=== PATIENT | male | born 1940 | race Caucasian/White ===

== ENCOUNTER → 2016-10-06 | Outpatient (CLI) | payer OTHER ==
[~2016-10-06] MED LIST: ADVIN25/60 INH; ASPEC81 PO; ASPI81TA28 PO; ATOR-24 PO; ATOR10TA88 PO; CEPH-571 PO; CIPR-255 PO; CMD5 PO; FINA5TAB PO; FURO40TA3 PO; GLIM4TAB2 PO; INSU1.2I INJ; IPRA1AER2 INH; ISOS-10 PO; LIDO2GEL9 TOP; LPT40 PO; LVNIS150 SQ; MAGN1TAB19 PO; METO1TAB31 PO; NITR0.4S76 PO; NITR1CAP33 PO; NMN10 PO; NTRO1 EXT; NVLGI/PEN SC; OXYC7.5T65 PO; POTA1CAP2 PO; PRT40 PO; RANI300T2 PO; SERT50TA PO; TAMS0.4C38 PO; WARF5TAB90 PO; [UNRECOGNIZED DRUG - OTHER] SC
== END | disposition home or self-care (01) ==
LOC: C.PAPS 11:00
PROVIDERS: ATTEND Urology
DX: R33.9 Retention of urine, unspecified (principal)

== ENCOUNTER 2016-10-26 06:27 | Inpatient (IN) | payer OTHER ==
[~2016-10-26] VITALS: Ht 180.3 cm; Wt 127.4 kg
[2016-10-26] VITALS (7 sets, daily range): BP systolic 130–178; BP diastolic 64–94; PULSE 50–71; TEMP 36.3–36.6; O2SAT 95–98; BMI 38.6
[~2016-10-26 06:27] MED LIST changes: -ASPI81TA28 PO; -ATOR-24 PO; -ATOR10TA88 PO; -CEPH-571 PO; -CMD5 PO; -LVNIS150 SQ; -NITR0.4S76 PO; -NITR1CAP33 PO; -NTRO1 EXT; -NVLGI/PEN SC; -PRT40 PO; -WARF5TAB90 PO
[2016-10-26 07:32] LABS: BASO % 0.2 %; BASO ABS # 0.02 K/uL (0-0.2); COMPLETE YES; EOS % 3.7 %; IG% 0.2 %; LYMPH % 45.4 %; LYMPH ABS # 3.68 K/uL (1.2-3.4); MEAN CELL VOLUME 90.7 fL (80-100); MEAN CORPUSCULAR HEMOGLOBIN 31.2 pg (25-34); MEAN CORPUSCULAR HGB CONC 34.3 g/dl (32-36); MEAN PLATELET VOLUME 10.3 fL (7.4-10.4); MONO % 8.8 %; NEUT % 41.7 %; PLATELET COUNT 218 K/uL (130-400); RED BLOOD COUNT 5.07 M/uL (4.7-6.1); WHITE BLOOD COUNT 8.11 K/uL (4.8-10.8)
[2016-10-26 07:38] LABS: PARTIAL THROMBOPLASTIN RATIO 1.1; PROTHROMBIN TIME (PATIENT) 10.8 SECONDS (9.0-12.0)
--- NOTE | 2016-10-26 07:44 | DIAGNOSTIC IMAGING REPORT ---
CHEST ONE VIEW PORTABLE CLINICAL HISTORY: cp dyspnea COMPARISON STUDY: 08/02/2016 FINDINGS: Central catheter remains in superior vena cava. Slight interstitial prominence both lung bases. Mid and upper lungs are considered clear. Mild stable cardiomegaly. Prior median sternotomy. IMPRESSION: Mild nonspecific bibasilar interstitial prominence. Mild stable cardiomegaly. Electronically signed by: Richard Guardado M.D. 10/26/2016 7:42 AM Dictated Date/Time: 10/26/2016 7:42 AM
[2016-10-26 07:54] LABS: BUN/CREATININE RATIO 11.1 (10-20); CALCIUM 8.6 mg/dl (8.5-10.1); CREATININE 1.8 mg/dl (0.60-1.40); POTASSIUM 4.4 mmol/L (3.5-5.1)
[2016-10-26] MEDS ORDERED: NITR0.4S76 PO (07:54)
[2016-10-26] MEDS ORDERED: ATOR10TA88 PO (07:54)
[2016-10-26 08:05] LABS: BETA-HYDROXYBUTYRATE 0.95 mg/dL (0.2-2.81)
--- NOTE | 2016-10-26 08:25 | History and Physical ---
History & Physical Date & Time of Service: Oct 26, 2016 at 08:15 Chief Complaint: Chest Pain Primary Care Physician: RV. Pond MD History of Present Illness Source: patient, family This is a 76 yo M with PMHx of chronic CHF, chronic atrial fib not on anticoagulation d/t hx of hematuria, HTN, hyperlipidemia, DM II, GERD, constipation, depression, chewing tobacco and daily marijuana smoker, who presents with new onset chest pain that started at 0530 when he was putting small pieces of wood on a fire. Pt notes yesterday was not feeling well, felt tired and weak, although cannot specify any other symptoms. He did not take his normal evening medications yesterday. Today his pain in the chest started in the right side of chest, and radiated to his upper stomach and back, with bilateral arm numbness. He became short of breath at that point as well and required him to sit down. His brought him to the hospital. Pt denies feeling nauseous, heart palpitations, dizziness, lightheadedness, changes in vision. He has previously had chest pain last june, but reports this feels different. He ate this morning ~0500 and was able to smoke marijuana. Pt did not take his normal morning medications today. In the ED pt has normal trop, EKG showing atrial fibrillation, BP is elevated into the 170s-190s., Cr is elevated =1.8, BUN=20, no ketones, glucose is elevated at 360s-380s, CBC is WNL. Past Medical/Surgical History Medical Problems: (1) Alzheimers disease Status: Chronic (2) Anxiety Status: Chronic (3) Asthma Status: Chronic (4) Atrial fibrillation Status: Chronic (5) CAD (coronary artery disease) Status: Chronic (6) CHF (congestive heart failure) Status: Chronic (7) CHF (congestive heart failure) Status: Chronic (8) Cholelithiasis Status: Resolved (9) Colon cancer Status: Resolved (10) COPD (chronic obstructive pulmonary disease) Status: Chronic (11) Depression Status: Chronic (12) Diab Mckenna Wo Compl, Type Ii Or Unspec Type, Not Uncntrld Status: Chronic (13) DM (diabetes mellitus) Status: Chronic (14) DVT (deep venous thrombosis) Status: Resolved (15) Emphysema Status: Chronic (16) Hypertension Nos Status: Chronic (17) [place] (myocardial infarction) Status: Resolved (18) Mild sleep apnea Status: Chronic (19) Peripheral neuropathy Status: Chronic (20) Pure Hypercholesterolem Status: Chronic Surgical Problems: (1) H/O hemicolectomy Status: Resolved (2) History of coronary artery stent placement Status: Resolved (3) Hx of CABG Status: Resolved Family History Diabetes mellitus Heart disease Hypertension Social History Smoking Status: Never Smoker Smokeless Tobacco Use: Yes Alcohol Use: socially Drug Use: marijuana Marital Status: Housing status: lives with family Occupational Status: retired Immunizations History of Influenza Vaccine: Yes Influenza Vaccine Date: Jun 12, 2010 History of Tetanus Vaccine?: Yes History of Pneumococcal: Yes History of Hepatitis B Vaccine: Unknown Multi-Drug Resistant Organisms History of MDRO: No Allergies Coded Allergies: Codeine (Verified Adverse Reaction, Intermediate, EMESIS, 10/26/16) Iodinated Diagnostic Agents (Verified Adverse Reaction, Mild, NAUSEA, 10/26) Home Medications Scheduled Aspirin (Aspirin EC Low Dose), 81 MG PO QAM Atorvastatin (Lipitor), 40 MG PO HS Finasteride (Proscar), 5 MG PO QAM Fluticasone Prop/Salmeterol (Advair Diskus 250/50 60 Dose), 1 PUFF INH BID Furosemide (Lasix), 40 MG PO QAM Insulin Glargine (Toujeo Solostar), 20 UNIT INJ QPM Ipratropium-Albuterol (Combivent Respimat), 1 PUFFS INH BID Isosorbide Mononitrate (Isosorbide Mononitrate ER), 60 MG PO QAM Magnesium Oxide (Mg Supplement (Magnesium Oxide), 400 MG PO BID Memantine (Namenda), 10 MG PO BID Potassium Chloride (Potassium Chloride Er), 10 MEQ PO QAM Ranitidine Hcl (Zantac), 300 MG PO QPM Sertraline (Zoloft), 50 MG PO QPM Tamsulosin Hcl (Flomax), 0.8 MG PO QPM Miscellaneous Medications Nitroglycerin (Nitroglycerin Lingual) Review of Systems Constitutional: No chills, No fever, No sweats Eyes: No diplopia, No eye pain ENT: No nasal symptoms, No sore throat Respiratory: + cough (on and off x several weeks), + dyspnea on exertion, + shortness of breath, No dyspnea at rest Cardiovascular: + chest pain, No palpitations Abdomen: + constipation (hx), No diarrhea, No nausea, No pain, No vomiting Neurologic: + numbness/tingling (bilateral arms with chest pain, chronic diabetic neuropathy in feet), + weakness Psychiatric: + substance abuse (marijuana daily every morning.) Endocrine: + fatigue Integumentary: No itch, No rash Physical Exam Vital Signs Date Time Temp Pulse Resp B/P Pulse Ox O2 Delivery O2 Flow Rate FiO2 10/26/16 08:07 68 20 172/91 92 Room Air 10/26/16 06:39 71 10/26/16 06:29 94 Room Air 10/26/16 06:29 68 20 191/101 94 Room Air General Appearance: WD/WN, no apparent distress, + obese Head: normocephalic, atraumatic Eyes: PERRL, EOMI ENT: hearing grossly normal, pharynx normal, + pertinent finding (upper dentures, has chewing tobacco on facial hair) Neck: supple, no JVD Respiratory/Chest: chest non-tender, no respiratory distress, no accessory muscle use, + pertinent finding (wearing 2 L O2 via NC, diminished breath sounds at right base.) Cardiovascular: no JVD, + systolic murmur, + irregularly irregular Abdomen/GI: normal bowel sounds, non tender, soft, no organomegaly Back: normal inspection Extremities/Musculoskelatal: no pedal edema, + calf tenderness (Left calf) Neurologic/Psych: alert, normal mood/affect, oriented x 3 Skin: normal color, no rash Diagnostics Laboratory Results Results Past 24 Hours Test 10/26/16 05:53 10/26/16 06:35 10/26/16 07:29 Range/Units White Blood Count 8.11 4.8-10.8 K/uL Red Blood Count 5.07 4.7-6.1 M/uL Hemoglobin 15.8 14.0-18.0 g/dL Hematocrit 46.0 42-52 % Mean Corpuscular Volume 90.7 80-100 fL Mean Corpuscular Hemoglobin 31.2 25-34 pg Mean Corpuscular Hemoglobin Concent 34.3 32-36 g/dl Platelet Count 218 130-400 K/uL Mean Platelet Volume 10.3 7.4-10.4 fL Neutrophils (%) (Auto) 41.7 % Lymphocytes (%) (Auto) 45.4 % Monocytes (%) (Auto) 8.8 % Eosinophils (%) (Auto) 3.7 % Basophils (%) (Auto) 0.2 % Neutrophils # (Auto) 3.38 1.4-6.5 K/uL Lymphocytes # (Auto) 3.68 1.2-3.4 K/uL Monocytes # (Auto) 0.71 0.11-0.59 K/uL Eosinophils # (Auto) 0.30 0-0.5 K/uL Basophils # (Auto) 0.02 0-0.2 K/uL RDW Standard Deviation 46.9 36.4-46.3 fL RDW Coefficient of Variation 14.2 11.5-14.5 % Immature Granulocyte % (Auto) 0.2 % Immature Granulocyte # (Auto) 0.02 0.00-0.02 K/uL Prothrombin Time 10.8 9.0-12.0 SECONDS Prothromb Time International Ratio 1.0 0.9-1.1 Activated Partial Thromboplast Time 27.3 21.0-31.0 SECONDS Partial Thromboplastin Ratio 1.1 Sodium Level 135 136-145 mmol/L Potassium Level 4.4 3.5-5.1 mmol/L Chloride Level 98 98-107 mmol/L Carbon Dioxide Level 29 21-32 mmol/L Anion Gap 8.0 3-11 mmol/L Blood Urea Nitrogen 20 7-18 mg/dl Creatinine 1.80 0.60-1.40 mg/dl Est Creatinine Clear Calc Drug Dose 46.4 ml/min Estimated GFR () 41.2 Estimated GFR (Non- 35.5 BUN/Creatinine Ratio 11.1 10-20 Random Glucose 388 70-99 mg/dl Calcium Level 8.6 8.5-10.1 mg/dl Beta-Hydroxybutyric Acid 0.95 0.2-2.81 mg/dL Bedside Glucose 362 70-99 mg/dl Bedside Troponin I 0.010 0-0.045 ng/ml Diagnostic Radiology CHEST ONE VIEW PORTABLE CLINICAL HISTORY: cp dyspnea COMPARISON STUDY: 08/02/2016 FINDINGS: Central catheter remains in superior vena cava. Slight interstitial prominence both lung bases. Mid and upper lungs are considered clear. Mild stable cardiomegaly. Prior median sternotomy. IMPRESSION: Mild nonspecific bibasilar interstitial prominence. Mild stable cardiomegaly. EKG Vent. rate 72 BPM FL interval * ms QRS duration 102 ms QT/QTc 416/455 ms P-R-T axes * 28 63 Atrial fibrillation, old inferior infarct. No new acute ST inversions or signs of ischemia. Impression Assessment and Plan 76 yo M with PMHx of chronic CHF, HTN, chronic atrial fibrillation not on anticoagulation due to hematuria, hyperlipidemia, DM II, GERD, constipation, depression, chewing tobacco and daily marijuana smoker, who presents with new onset chest pain that started at 0530 when he was putting small pieces of wood on a fire. Chest Pain, shortness of breath Hx CHF Chronic Atrial Fibrillation - Admit to tele - 1st trop negative, Trend troponin and ckmb Q8H x 3 - EKG reviewed showing atrial fibrillation, dx back in Jul 2014. Was initially on coumadin although developed hematuria in Sep 2015 so was discontinued. - Will check doppler of left leg to r/o dvt with + calf tenderness - Will check CTPE study stat even with elevated Cr. due to high suspicion for PE. - Last Echo completed 07/04/16: Left ventricular systolic function is normal. There is inferior wall akinesis. Ejection Fraction = 50-55%. There is mild concentric left ventricular hypertrophy. Mild to moderate valvular aortic stenosis. There is mild mitral stenosis. HTN - SBPs in 190s-170s, DBP around 100- pt has not taken any of antihypertensives today or yesterday- give PT imdur 60 mg now. 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 elevated this morning at 1.8, baseline appears to be ~1.4 - hold nephrotoxins including lasix 40 mg daily - pt has not taken this x 24 hours. 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 Will use ISS with accuchecks ACHS for now - Diabetic/ aha diet GERD - Cont ranitidine Depression - Cont sertraline 50 mg daily Tobacco Abuse - Cessation encouraged, offerend nicotine patch. Continue combivent inhaler 1 puff daily - Requiring o2 at 2 L, - Will order duonebs for today with diminished breath sounds at bases - CXR reviewed and shows mild nonspecific bibasilar interstitial prominence. Mild stable cardiomegaly. Hx colon carcinoma BPH-continue flomax 0.8 mg daily QPM DVT ppx: SCDs, heparin sq CODE STATUS: FULL CODE Disposition: From home. Level of Care Telemetry Advanced Directives Existing Advance Directive: No Existing Living Will: No Existing Power of National Account Executive: No Existing Health Care Proxy: No Resuscitation Status FULL RESUSCITATION VTE Prophylaxis VTE Risk Assessment Done? Y/N: Yes Risk Level: Moderate Given or contraindicated: Unfractionated heparin SQ, SCD's
[2016-10-26] MEDS: SODIUM CHLORIDE 0.9% 1000ML 1,000 ML IV SCH (08:49)
[2016-10-26] MEDS ORDERED: ACETAMINOPHEN 325 MG TAB PO PRN (09:00)
[2016-10-26] MEDS ORDERED: NITROGLYCERIN 0.4 MG SL PER TAB CHARGE SL PRN (09:00)
[2016-10-26] MEDS ORDERED: GLUCAGON FOR INJ 1 MG VIAL SQ PRN (09:00)
[2016-10-26] MEDS ORDERED: GLUCOSE 10 TABS/TUBE PO PRN (09:00)
[2016-10-26] MEDS ORDERED: ONDANSETRON INJ 2 MG/ML 2 ML VIAL IV PRN (09:00)
[2016-10-26] MEDS ORDERED: IPRATROPIUM BROMIDE/ALBUTEROL respimat INH INH SCH (09:00)
[2016-10-26] MEDS ORDERED: POLYETHYLENE (MIRALAX) 17 GM PACK PO PRN (09:00)
[2016-10-26] MEDS ORDERED: DEXTROSE 50% 50 ML SYR IV PRN (09:00)
[2016-10-26] MEDS ORDERED: GLUCOSE 40% GEL 15 GM TUBE PO PRN (09:00)
[2016-10-26] MEDS ORDERED: ATOR-24 PO (09:05)
[2016-10-26] MEDS ORDERED: OPTIRAY 320 IV PRN (09:30)
--- NOTE | 2016-10-26 10:09 | EMERGENCY ROOM VISIT NOTE ---
History Report prepared by Franklin: Dean Whiteside Under the Supervision of: Dr. Dionicio Burk M.D. First contact with patient: 06:58 Chief Complaint: CHEST PAIN Stated Complaint: CHEST PAIN Nursing Triage Summary: Pt throwing wood on his fire around 5am and developed chest pain on his right side. Pt states he thought it was from a twisting moment. Didn't radiate anywhere, some shortness of breath. Pt stated he has been feeling weak for awhile now. History of Present Illness The patient is a 76 year old male who presents to the Emergency Room with complaints of chest discomfort. It started at approximate 5 AM this morning while he was putting wood on the fireplace. He describes it as a pressure to the right side of the chest. It was associated with shortness of breath and numbness to his hands bilaterally. No radiation of the chest pain. It resolved after 15 minutes. He was brought here by ambulance and given aspirin by the paramedics. He is not having any chest discomfort at this time. He did not take his medications this morning. He does have a history of atrial fibrillation but he is not on any blood thinners. He has not been on Coumadin for approximately one year because of a history of hematuria. He denies any fever but states that he has had a mild cough for the past 2 days. Source of History: patient Onset: 5 AM this morning Position: chest (right) Quality: other (pressure) Timing: resolved Associated Symptoms: + SOB, + cough, No fevers Review of Systems I did review 10 or more systems which are negative unless otherwise indicated on the chart or HPI. Past Medical & Surgical Medical Problems: (1) Alzheimers disease (2) Anxiety (3) Asthma (4) Atrial fibrillation (5) CAD (coronary artery disease) (6) Chest pain (7) CHF (congestive heart failure) (8) CHF (congestive heart failure) (9) Cholelithiasis (10) Colon cancer (11) COPD (chronic obstructive pulmonary disease) (12) Depression (13) Diab Mckenna Wo Compl, Type Ii Or Unspec Type, Not Uncntrld (14) DM (diabetes mellitus) (15) DVT (deep venous thrombosis) (16) Emphysema (17) Gross hematuria (18) Hypertension Nos (19) [place] (myocardial infarction) (20) Mild sleep apnea (21) Peripheral neuropathy (22) Pure Hypercholesterolem (23) Shortness of breath Surgical Problems: (1) H/O hemicolectomy (2) History of coronary artery stent placement (3) Hx of CABG Family History Diabetes mellitus Heart disease Hypertension Social History Smoking Status: Never Smoker Alcohol Use: occasionally Drug Use: none Marital Status: Housing Status: lives with significant other Occupation Status: retired Current/Historical Medications Scheduled Aspirin (Aspirin EC Low Dose), 81 MG PO QAM Atorvastatin (Lipitor), 40 MG PO HS Finasteride (Proscar), 5 MG PO QAM Fluticasone Prop/Salmeterol (Advair Diskus 250/50 60 Dose), 1 PUFF INH BID Furosemide (Lasix), 40 MG PO QAM Insulin Glargine (Toujeo Solostar), 20 UNIT INJ QPM Ipratropium-Albuterol (Combivent Respimat), 1 PUFFS INH BID Isosorbide Mononitrate (Isosorbide Mononitrate ER), 60 MG PO QAM Magnesium Oxide (Mg Supplement (Magnesium Oxide), 400 MG PO BID Memantine (Namenda), 10 MG PO BID Potassium Chloride (Potassium Chloride Er), 10 MEQ PO QAM Ranitidine Hcl (Zantac), 300 MG PO QPM Sertraline (Zoloft), 50 MG PO QPM Tamsulosin Hcl (Flomax), 0.8 MG PO QPM Miscellaneous Medications Nitroglycerin (Nitroglycerin Lingual) Allergies Coded Allergies: Codeine (Verified Adverse Reaction, Intermediate, EMESIS, 10/26/16) Iodinated Diagnostic Agents (Verified Adverse Reaction, Mild, NAUSEA, 10/26) Physical Exam Vital Signs Date Time Temp Pulse Resp B/P Pulse Ox O2 Delivery O2 Flow Rate FiO2 10/26/16 09:55 68 20 166/94 96 10/26/16 08:07 68 20 172/91 92 Room Air 10/26/16 06:39 71 10/26/16 06:29 94 Room Air 10/26/16 06:29 68 20 191/101 94 Room Air Physical Exam Constitutional: Vital signs reviewed. Repeat blood pressure 157/90. Eyes: Pupils are equal round reactive to light. Conjunctiva are noninjected. ENT: Pharynx is clear without erythema or exudate. Mucous membranes are moist. Neck supple without meningeal signs. Respiratory: Clear to auscultation bilaterally. Breath sounds are equal bilaterally. Cardiovascular: Regular rate and rhythm. No rubs or gallops. GI: Soft, nondistended and nontender. Bowel sounds are present. Musculoskeletal: No peripheral edema. No lower extremity tenderness. Integumentary: No cyanosis. Neurological: The patient is awake and alert. No focal deficits. Psychiatric: Normal affect. Medical Decision & Procedures ER Provider Diagnostic Interpretation: X-ray results as stated below per interpretation by me and the radiologist: CHEST ONE VIEW PORTABLE CLINICAL HISTORY: cp dyspnea COMPARISON STUDY: 08/02/2016 FINDINGS: Central catheter remains in superior vena cava. Slight interstitial prominence both lung bases. Mid and upper lungs are considered clear. Mild stable cardiomegaly. Prior median sternotomy. IMPRESSION: Mild nonspecific bibasilar interstitial prominence. Mild stable cardiomegaly. Electronically signed by: Richard Guardado M.D. 10/26/2016 7:42 AM Dictated Date/Time: 10/26/2016 7:42 AM Laboratory Results 10/26/16 05:53 Red Blood Count 5.07, Mean Corpuscular Volume 90.7, Mean Corpuscular Hemoglobin 31.2, Mean Corpuscular Hemoglobin Concent 34.3, Mean Platelet Volume 10.3, Neutrophils (%) (Auto) 41.7, Lymphocytes (%) (Auto) 45.4, Monocytes (%) (Auto) 8.8, Eosinophils (%) (Auto) 3.7, Basophils (%) (Auto) 0.2, Neutrophils # (Auto) 3.38, Lymphocytes # (Auto) 3.68, Monocytes # (Auto) 0.71, Eosinophils # (Auto) 0.30, Basophils # (Auto) 0.02 10/26/16 05:53 Test 10/26/16 05:53 10/26/16 06:35 10/26/16 07:29 White Blood Count 8.11 K/uL (4.8-10.8) Red Blood Count 5.07 M/uL (4.7-6.1) Hemoglobin 15.8 g/dL (14.0-18.0) Hematocrit 46.0 % (42-52) Mean Corpuscular Volume 90.7 fL (80-100) Mean Corpuscular Hemoglobin 31.2 pg (25-34) Mean Corpuscular Hemoglobin Concent 34.3 g/dl (32-36) Platelet Count 218 K/uL (130-400) Mean Platelet Volume 10.3 fL (7.4-10.4) Neutrophils (%) (Auto) 41.7 % Lymphocytes (%) (Auto) 45.4 % Monocytes (%) (Auto) 8.8 % Eosinophils (%) (Auto) 3.7 % Basophils (%) (Auto) 0.2 % Neutrophils # (Auto) 3.38 K/uL (1.4-6.5) Lymphocytes # (Auto) 3.68 K/uL (1.2-3.4) Monocytes # (Auto) 0.71 K/uL (0.11-0.59) Eosinophils # (Auto) 0.30 K/uL (0-0.5) Basophils # (Auto) 0.02 K/uL (0-0.2) RDW Standard Deviation 46.9 fL (36.4-46.3) RDW Coefficient of Variation 14.2 % (11.5-14.5) Immature Granulocyte % (Auto) 0.2 % Immature Granulocyte # (Auto) 0.02 K/uL (0.00-0.02) Prothrombin Time 10.8 SECONDS (9.0-12.0) Prothromb Time International Ratio 1.0 (0.9-1.1) Activated Partial Thromboplast Time 27.3 SECONDS (21.0-31.0) Partial Thromboplastin Ratio 1.1 Anion Gap 8.0 mmol/L (3-11) Est Creatinine Clear Calc Drug Dose 46.4 ml/min Estimated GFR () 41.2 Estimated GFR (Non- 35.5 BUN/Creatinine Ratio 11.1 (10-20) Calcium Level 8.6 mg/dl (8.5-10.1) Beta-Hydroxybutyric Acid 0.95 mg/dL (0.2-2.81) Bedside Glucose 362 mg/dl (70-99) Bedside Troponin I 0.010 ng/ml (0-0.045) Laboratory results as reviewed by me. ECG Indication: chest pain Rate (beats per minute): 72 Rhythm: atrial fibrillation Findings: Q waves (Inferior), no acute ischemic change Change: no significant change (June 2016) ED Course 0658: The patient was evaluated in room A12. A complete history and physical exam was performed. 0804: I paged the TnMiquel Owens Hospitalist at this time. 0807: I checked on the patient at this time. His mentioned that he did not take his diabetes medication this morning. 0808: I discussed the case with Dr. Aury WINKLER Hospitalist, he will evaluate the patient for further treatment. Medical Decision This is a 76-year-old male who presents with chest discomfort. Differential diagnosis includes unstable angina, IL, pleurisy, GERD, pneumonia, pneumothorax. I did perform a limited focused review of portions of the patient' s old chart on the electronic medical record. The patient had a cardiac stress test in June last year which was negative for any new ischemia. I did evaluate the patient as noted above. The patient is presenting with chest discomfort after putting a log in the fire. He does have a history of cardiac disease. He is chest pain-free currently. IV access was established. The patient was placed on a continuous conveyor monitor. I did order and personally review the patient's 12-lead EKG and chest x-ray as described above. I did order and review the patient's blood work as noted in the electronic medical record. Troponin is negative. His blood sugar is elevated but he states he did not take his medication this morning. I did recommend hospitalization for repeat cardiac enzymes and further workup. I did discuss case with the hospitalist and rn case manager hospice. Consults Time Called: [phone] Consulting Physician: Dr. Aury WINKLER Hospitalist Returned Call: [phone] I discussed the case with Dr. Aury WINKLER Hospitalhay, he will evaluate the patient for further treatment Impression Primary Impression: Precordial chest pain Additional Impression: Hyperglycemia Scribe Attestation The scribe's documentation has been prepared under my direct and personally reviewed by me in its entirety. I confirm that the note above accurately reflects all work, treatment, procedures, and medical decision making performed by me. Departure Information Dispostion Being Evaluated By Hospitalist RV. Turpin MD (PCP) Patient Instructions My [facility] Problem Qualifiers
--- NOTE | 2016-10-26 10:17 | DIAGNOSTIC IMAGING REPORT ---
CHEST CTA for PULMONARY ARTERIES CT DOSE: 806.27 mGy.cm HISTORY: Chest pain dyspnea TECHNIQUE: Multiaxial CT images of the chest were performed following the intravenous administration of contrast to evaluate the pulmonary arteries. Maximal intensity projection images were also obtained. COMPARISON STUDY: None. FINDINGS: Moderate atherosclerotic change thoracic aorta. Pulmonary vasculature enhances appropriately. There are no filling defects. Slight bibasilar interstitial prominence. Mild pleural thickening over the lateral hemithoraces. Moderate cardiomegaly. Prior median sternotomy. Central catheter in superior vena cava. IMPRESSION: 1. Study is negative for pulmonary embolus. 2. Slight bibasilar interstitial prominence. 3. Moderate cardiomegaly. Electronically signed by: Richard Guardado M.D. 10/26/2016 10:16 AM Dictated Date/Time: 10/26/2016 10:12 AM
[2016-10-26] MEDS ORDERED: ALBUT/IPRATROP 3MG/0.5MG NEB 3 ML VIAL INH PRN (10:30)
--- NOTE | 2016-10-26 13:20 | DIAGNOSTIC IMAGING REPORT ---
Venous Doppler left leg LEFT VENOUS DOPP LOWER EXT UNILAT CLINICAL HISTORY: R/o DVT pain. Edema. TECHNIQUE: Venous Doppler COMPARISON STUDY: 05/01/2014 FINDINGS: Nonocclusive thrombus within the left peroneal veins. No significant additional thrombus formation. Specifically no thrombus formation within the thigh. IMPRESSION: Findings consistent with acute deep venous thrombosis inferior to the knee involving the left peroneal veins. Electronically signed by: Richard Guardado M.D. 10/26/2016 1:19 PM Dictated Date/Time: 10/26/2016 1:17 PM
[2016-10-26] MEDS: FLUTICASONE/SALMETEROL 250/50 (ADVAIR) 14 PUFF/1 INHALER INH SCH ×2 (13:59→21:25)
[2016-10-26] MEDS: ASPIRIN 81 MG ECTAB PO SCH (14:00)
[2016-10-26] MEDS ORDERED: HEPARIN SOD 5000 UNIT/0.5 ML CARP SQ SCH (14:00)
[2016-10-26] MEDS: POTASSIUM CHLORIDE 10 MEQ TABCR PO SCH (14:01)
[2016-10-26] MEDS: MAGNESIUM OXIDE 400 MG TAB PO SCH ×2 (14:01→21:28)
[2016-10-26] MEDS: MEMANTINE 10 MG TAB PO SCH ×2 (14:02→21:27)
[2016-10-26] MEDS: FINASTERIDE 5 MG TAB PO SCH (14:02)
[2016-10-26] MEDS: ISOSORBIDE MONONITRATE 60 MG TABCR PO SCH (14:03)
[2016-10-26] MEDS: INSULIN ASPART 100 UNITS/ML 3 ML PEN SC SCH ×3 (14:48→21:00)
[2016-10-26] MEDS: ALBUT/IPRATROP 3MG/0.5MG NEB 3 ML VIAL INH SCH ×2 (15:36→20:00)
[2016-10-26] MEDS ORDERED: NURSING VERBAL MED ORDER ONE (15:45)
[2016-10-26] MEDS ORDERED: HEPARIN IV BOLUS 8,000 UNIT in SYRINGE 0 ML IV ONE (16:00)
[2016-10-26 16:24] LABS: PHOSPHORUS 3.3 mg/dl (2.5-4.9); POTASSIUM 4.3 mmol/L (3.5-5.1)
[2016-10-26] MEDS: HEPARIN 25,000 UNIT/500ML D5W 500 ML IV PRN (16:24)
[2016-10-26] MEDS ORDERED: WARFARIN SOD 5 MG TAB PO ONE (17:30)
[2016-10-26] MEDS: WARFARIN SOD 5 MG TAB PO SCH (18:28)
[2016-10-26] MEDS ORDERED: INSULIN GLARGINE SOLOSTAR 100 UNITS/ML 3 ML PEN SC SCH (21:00)
[2016-10-26] MEDS: ATORVASTATIN 10 MG TAB PO SCH (21:26)
[2016-10-26] MEDS: TAMSULOSIN HCL 0.4 MG CAP PO SCH (21:26)
[2016-10-26] MEDS: SERTRALINE HCL 50 MG TAB PO SCH (21:27)
[2016-10-26] MEDS: RANITIDINE HCL 150 MG TAB PO SCH (21:27)
[2016-10-26 23:11] LABS: PARTIAL THROMBOPLASTIN RATIO 4.5
[2016-10-27] VITALS (11 sets, daily range): BP systolic 120–147; BP diastolic 59–82; PULSE 60–87; TEMP 36.3–36.9; O2SAT 93–98; Ht 180.3 cm; Wt 127.4 kg
[2016-10-27] MEDS: SODIUM CHLORIDE 0.9% 1000ML 1,000 ML IV SCH (06:39)
[2016-10-27 07:27] LABS: BASO % 0.4 %; BASO ABS # 0.03 K/uL (0-0.2); COMPLETE YES; EOS % 2.9 %; HEMATOCRIT 36.6 % (42-52); IG% 0.2 %; LYMPH % 39.5 %; LYMPH ABS # 3.35 K/uL (1.2-3.4); MEAN CELL VOLUME 87.6 fL (80-100); MEAN CORPUSCULAR HEMOGLOBIN 29.9 pg (25-34); MEAN CORPUSCULAR HGB CONC 34.2 g/dl (32-36); MEAN PLATELET VOLUME 9.4 fL (7.4-10.4); MONO % 7.8 %; NEUT % 49.2 %; PLATELET COUNT 197 K/uL (130-400); RED BLOOD COUNT 4.18 M/uL (4.7-6.1); WHITE BLOOD COUNT 8.48 K/uL (4.8-10.8)
[2016-10-27] MEDS: ALBUT/IPRATROP 3MG/0.5MG NEB 3 ML VIAL INH SCH ×4 (07:37→20:43)
[2016-10-27 07:39] LABS: INR 1.1 (0.9-1.1); PARTIAL THROMBOPLASTIN RATIO 2.4; PROTHROMBIN TIME (PATIENT) 11.4 SECONDS (9.0-12.0)
[2016-10-27 07:54] LABS: BLOOD UREA NITROGEN 18 mg/dl (7-18); BUN/CREATININE RATIO 11.9 (10-20); CALCIUM 8.1 mg/dl (8.5-10.1); CARBON DIOXIDE 28 mmol/L (21-32); CHLORIDE 105 mmol/L (98-107); GLUCOSE 146 mg/dl (70-99); POTASSIUM 4.5 mmol/L (3.5-5.1); SODIUM 141 mmol/L (136-145)
[2016-10-27] MEDS: FLUTICASONE/SALMETEROL 250/50 (ADVAIR) 14 PUFF/1 INHALER INH SCH ×2 (08:09→20:03)
[2016-10-27] MEDS: ISOSORBIDE MONONITRATE 60 MG TABCR PO SCH (08:09)
[2016-10-27] MEDS: ASPIRIN 81 MG ECTAB PO SCH (08:09)
[2016-10-27] MEDS: MEMANTINE 10 MG TAB PO SCH ×2 (08:10→20:05)
[2016-10-27] MEDS: FINASTERIDE 5 MG TAB PO SCH (08:10)
[2016-10-27] MEDS: MAGNESIUM OXIDE 400 MG TAB PO SCH ×2 (08:10→20:06)
[2016-10-27] MEDS: POTASSIUM CHLORIDE 10 MEQ TABCR PO SCH (08:11)
[2016-10-27] MEDS: INSULIN ASPART 100 UNITS/ML 3 ML PEN SC SCH ×4 (08:15→20:11)
[2016-10-27] MEDS: HEPARIN 25,000 UNIT/500ML D5W 500 ML IV PRN (08:34)
[2016-10-27 09:05] LABS: ESTIMATED AVERAGE GLUCOSE 286 mg/dl; HA1C FLAG Normal (Normal)
[2016-10-27] MEDS ORDERED: NURSING VERBAL MED ORDER ONE (09:30)
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
[2016-10-27] MEDS: WARFARIN SOD 5 MG TAB PO SCH (16:05)
[2016-10-27] MEDS: RANITIDINE HCL 150 MG TAB PO SCH (20:05)
[2016-10-27] MEDS: ATORVASTATIN 10 MG TAB PO SCH (20:05)
[2016-10-27] MEDS: SERTRALINE HCL 50 MG TAB PO SCH (20:05)
[2016-10-27] MEDS: TAMSULOSIN HCL 0.4 MG CAP PO SCH (20:06)
[2016-10-27] MEDS: INSULIN GLARGINE SOLOSTAR 100 UNITS/ML 3 ML PEN SQ SCH (20:11)
[2016-10-28] VITALS (9 sets, daily range): BP systolic 120–159; BP diastolic 59–87; PULSE 62–89; TEMP 36.3–36.6; O2SAT 95–97
[2016-10-28] MEDS: HEPARIN 25,000 UNIT/500ML D5W 500 ML IV PRN ×2 (01:06→22:35)
--- NOTE | 2016-10-28 01:58 | CARDIOLOGY CONSULTATION ---
DATE OF CONSULTATION: 10/27/2016 CONSULTATION REQUESTED BY: Dr. Jeffers. REASON FOR CONSULTATION: Atrial fibrillation and anticoagulation management. HISTORY OF PRESENT ILLNESS: Mr. Townsend is a 76-year-old male, with a complex past medical history, known to me from the outpatient setting, who was admitted 2 days ago in the setting of a vague chest discomfort and numbness down his arms. He was noted to have a small peroneal DVT for which he is now being anticoagulated. Cardiology consult for further management recommendations regarding anticoagulation in the setting of patient's other cardiac issues. The patient has a history of coronary artery disease, status post 2-vessel CABG remotely with prior vein graft to PDA and vein graft to first diagonal. He also had an inferior STEMI back in 2010 involving his vein graft to PDA for which a bare-metal stent was placed. Since that time, his cardiac care has been complicated by acute exacerbations of heart failure as well as atrial fibrillation and a prior GI bleed in the setting of anticoagulation. More recently, the patient was seen as an outpatient by cardiology 3 months ago. At that time, had recently been discharged from a hospitalization for heart failure and he was doing relatively well. At that time, we discussed anticoagulation, but deferred in the setting of potential upcoming urologic procedures. Currently, the patient states he is feeling well. The chest pain that he had initially quickly resolved and he states that he has had pain like that, off and on, for a long time. This was not terribly new. His troponins have been negative. His EKG has been unchanged. He has been in persistent atrial fibrillation on telemetry since admission with episodes of nonsustained VT, possible wide complex arrhythmia representing SVT with aberrancy. Since hospitalization, he has been started on heparin as well as Coumadin. PAST MEDICAL HISTORY: 1. Coronary artery disease, status post 2 vessel CABG (vein graft to PDA, vein graft to first diagonal), known occluded LAD and a prior bare-metal stent to his vein graft to PDA in the setting of inferior STEMI. 2. Ischemic cardiomyopathy. An echo in June of 2006 showed preserved LV function with an EF of 50%-55%. A nuclear cardiology study at that time showed EF of around 34%. 3. Permanent atrial fibrillation. 4. Moderate aortic stenosis. 5. Hypertension. 6. Dyslipidemia. 7. Mild dementia. 8. Anemia. 9. Asthma. 10. History of hematuria. 11. COPD. 12. Depression and anxiety. 13. Type 2 diabetes, not on insulin. 14. Dyslipidemia. 15. BPH. 16. Hyperlipidemia. FAMILY HISTORY: No history of premature coronary artery disease or sudden cardiac . SOCIAL HISTORY: Does not actively smoke tobacco. Remote tobacco use in the past. Ongoing marijuana use almost daily and rarely consumes alcohol. He is , has 2 grown adult children. HOME MEDICATIONS: 1. Ranitidine 300. 2. Sertraline 50. 3. Toujeo injection. 4. Furosemide 40 mg. 5. Aspirin 81. 6. Isosorbide mononitrate 60. 7. Advair. 8. Glimepiride. 9. Atorvastatin 40. 10. Finasteride. 11. Combivent. ALLERGIES: CODEINE AND IODINATED CONTRAST MATERIAL. REVIEW OF SYSTEMS: Ten-point review of systems completed and otherwise negative, unless stated in the HPI. PHYSICAL EXAMINATION: VITAL SIGNS: Temperature 36.9, pulse 69, blood pressure 123/70, saturating 95% on room air. GENERAL: The patient appears comfortable, in no acute distress. HEENT: Sclerae are anicteric. Oropharynx is clear. Mucous membranes are moist. NECK: Supple. He has no jugular venous distention. LUNGS: Clear to auscultation bilaterally. HEART: He is irregularly irregular. He has 2/6 systolic ejection murmur, heard best at the right upper sternal border. ABDOMEN: Soft, nontender, nondistended with positive bowel sounds. He has no hepatosplenomegaly. EXTREMITIES: Warm. He has intact distal pulses. He has no significant lower extremity edema. SKIN: Shows no rashes or lesions. NEUROLOGIC: Cranial nerves are grossly intact. The remainder of his exam is nonfocal. PSYCHIATRIC: He is alert and oriented x3 and mood and affect is appropriate. LABORATORY DATA: White blood cell count 8.5, hemoglobin 12.5, down from 15.8 on admission, platelets of 197. INR is 1.1, PTT is 62.5. Sodium 141, potassium 4.5, BUN 18, creatinine of 1.5, down from 1.9 on admission, calcium is 8.1, hemoglobin A1c is elevated at 11.6. Troponins 0.01, 0.034, 0.023, 0.019. ProBNP 2000. IMAGING: Chest x-ray shows a mild nonspecific bibasilar interstitial prominence and stable cardiomegaly. Otherwise, no acute cardiopulmonary process. Lower extremity ultrasound showed acute deep venous thrombosis inferior to the knee, involving the left peroneal veins. CT scan of his chest was negative for PE. There was a slight bibasilar interstitial prominence. EKG showed atrial fibrillation with inferior infarct and no dynamic ST changes. Telemetry reviewed showed largely well rate-controlled atrial fibrillation. There were several intermittent episodes of PVCs and 2 episodes of nonsustained VT, most recent overnight was 9 beats. Episode prior to that occurred earlier in the morning and was more than 12 beats, slow, wide, at a rate of approximately 120. IMPRESSION AND PLAN: 1. Atypical chest pain. 2. Persistent atrial fibrillation. 3. Acute deep venous thrombosis. 4. History of hematuria, on blood thinners. 5. Nonsustained ventricular tachycardia. 6. Ischemic cardiomyopathy with chronic systolic heart failure. 7. Coronary artery disease, status post CABG and prior inferior ST segment elevation myocardial infarction with bare-metal stent. 8. Anemia. 9. Poorly-controlled type 2 diabetes. At present, the patient's chest pain and presenting symptoms have largely resolved. New finding on this admission was [id number] venous thrombosis. In the setting of that and the patient's persistent atrial fibrillation, he has been placed on heparin with Coumadin. Long-term, agree with resuming anticoagulation, as the patient is high risk for cardioemboli in the setting of his atrial fibrillation and risk factors Choice of anticoagulation is complicated by the patient's prior hematuria in the setting of triple therapy, including aspirin, Plavix and Coumadin. With any anticoagulation will need to be on aspirin as well. Discussed with the patient and his family potential use of a novel oral anticoagulant. The only one that has a reversal agent is Pradaxa; however, requires parenteral heparin use in the acute treatment of DVT. As such, I feel with the patient's drop in hemoglobin from admission agree with current anticoagulation and would plan to continue Coumadin. For now, would continue on heparin and continue to track blood counts. If hemoglobins are stable, could consider a bridge with Lovenox to Coumadin. Otherwise, would continue on current cardiac regimen. Would add Toprol 25 mg daily in the setting of nonsustained VT. Would also repeat a transthoracic echocardiogram in the setting of conflicting LV function on most recent studies. We will continue to follow the patient while in the hospital. When anticoagulation plan is in place, likely okay for discharge from a cardiac standpoint. Thank you for allowing us to participate in the care of this patient. Please contact with any questions. MAYCOL
[2016-10-28 07:25] LABS: BASO % 0.7 %; BASO ABS # 0.05 K/uL (0-0.2); COMPLETE YES; EOS % 2.5 %; HEMATOCRIT 34.7 % (42-52); IG% 0.3 %; LYMPH % 39.5 %; LYMPH ABS # 2.86 K/uL (1.2-3.4); MEAN CORPUSCULAR HEMOGLOBIN 29.6 pg (25-34); MEAN PLATELET VOLUME 9.5 fL (7.4-10.4); MONO % 7.2 %; NEUT % 49.8 %; PLATELET COUNT 179 K/uL (130-400); RED BLOOD COUNT 3.99 M/uL (4.7-6.1); WHITE BLOOD COUNT 7.24 K/uL (4.8-10.8)
[2016-10-28] MEDS: ALBUT/IPRATROP 3MG/0.5MG NEB 3 ML VIAL INH SCH ×4 (07:25→20:20)
[2016-10-28 07:47] LABS: INR 1.1 (0.9-1.1); PARTIAL THROMBOPLASTIN RATIO 1.9; PROTHROMBIN TIME (PATIENT) 11.4 SECONDS (9.0-12.0)
[2016-10-28 07:51] LABS: BUN/CREATININE RATIO 10.6 (10-20); CALCIUM 8.4 mg/dl (8.5-10.1); CREATININE 1.4 mg/dl (0.60-1.40); POTASSIUM 4.1 mmol/L (3.5-5.1)
[2016-10-28] MEDS: FLUTICASONE/SALMETEROL 250/50 (ADVAIR) 14 PUFF/1 INHALER INH SCH ×2 (08:22→20:24)
[2016-10-28] MEDS: FINASTERIDE 5 MG TAB PO SCH (08:22)
[2016-10-28] MEDS: MAGNESIUM OXIDE 400 MG TAB PO SCH ×2 (08:22→20:24)
[2016-10-28] MEDS: MEMANTINE 10 MG TAB PO SCH ×2 (08:23→20:22)
[2016-10-28] MEDS: ASPIRIN 81 MG ECTAB PO SCH (08:23)
[2016-10-28] MEDS: ISOSORBIDE MONONITRATE 60 MG TABCR PO SCH (08:23)
[2016-10-28] MEDS: INSULIN ASPART 100 UNITS/ML 3 ML PEN SC SCH ×4 (08:27→20:29)
[2016-10-28] MEDS ORDERED: PERFLUTREN LIPID MICROSPHERE (DEFINITY) IV ONE (10:51)
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
[2016-10-28] MEDS: WARFARIN SOD 5 MG TAB PO SCH (16:46)
[2016-10-28] MEDS ORDERED: PANTOprazole SOD 40 MG TAB PO STA (17:40)
[2016-10-28] MEDS: ATORVASTATIN 10 MG TAB PO SCH (20:22)
[2016-10-28] MEDS: SERTRALINE HCL 50 MG TAB PO SCH (20:23)
[2016-10-28] MEDS: RANITIDINE HCL 150 MG TAB PO SCH (20:23)
[2016-10-28] MEDS: TAMSULOSIN HCL 0.4 MG CAP PO SCH (20:24)
[2016-10-28] MEDS: INSULIN GLARGINE SOLOSTAR 100 UNITS/ML 3 ML PEN SQ SCH (20:29)
--- NOTE | 2016-10-28 20:55 | ECHOCARDIOGRAM REPORT ---
*NOTICE TO RECEIVING [employer] This information is strictly Confidential and protected under [place] law. [place] law prohibits you from making any further disclosure of this information unless further disclosure is expressly permitted by the written consent of the person to whom it pertains or is authorized by law. A general authorization for the release of medical or other information is not sufficient for this purpose. Hospital accepts no responsibility if the information is made available to any other person, INCLUDING THE PATIENT. Interpretation Summary * Name: JOY BERNAL JR Study Date: 10/28/2016 09:40 AM * Patient Location: 2\S\S241\S\1 * : 1940 (M/d/yyyy) Gender: Male Height: 70 in * Age: 76 yrs Ethnicity: [place] Weight: 279 lb * Ordering Physician: Leena Whiteside * Referring Physician: Self, Referred * Performed By: Janee Murcia RDCS * * Reason For Study: AFIB * BSA: 2.4 m2 * History: AFIB * -- Conclusions -- * 1. Normal LV size and wall thickness. * 2. Low normal overall systolic function. LVEF 50-55%. Inferior and inferolateral wall severe hypokinesis. Apical septal wall is akinetic. * 3. RV size is normal with mild RV dysfunction. * 4. Moderate aortic stenosis with mild aortic insufficiency. * 5. Mild to moderate mitral stenosis with trace MR. * 6. Diastolic dysfunction. * 7. Compared with prior study on 07/04/2016: Wall motion abnormalities and mitral stenosis is better appreciated. No significant change to aortic stenosis or overall LV function. Procedure Details * A contrast injection of Definity was performed to improve assessment of LV function. * Contrast was injected into an intravenous site in the left arm. * One vial of Definity ultrasound contrast was diluted in normal saline to a total volume of 10 ml. A total of '2' ml of solution was administered during imaging. * Lot # [id number] of Definity utilized for procedure. * Expiration date 1 OCT 30. * The attending nurse who injected the contrast agent was ALMAZ ALVARADO RN. Left Ventricle * The left ventricle is grossly normal size. * Ejection Fraction = 50-55%. * Septal motion is consistent with post-operative state. * Apical septum is akinetic. Inferior wall is severely hypokinetic. Posterior wall is severly hypokinetic Right Ventricle * The right ventricle is grossly normal size. * The right ventricular systolic function is mildly reduced. Atria * The left atrium is severely dilated. * The right atrium is severely dilated. * No ASD detected; PFO is not assessed. Mitral Valve * There is severe mitral annular calcification. * There is mild to moderate mitral stenosis. * There is trace mitral regurgitation. Tricuspid Valve * The tricuspid valve is not well visualized. * There is no tricuspid stenosis. * There is trace tricuspid regurgitation. Aortic Valve * Moderate valvular aortic stenosis. * Mild aortic regurgitation. Pulmonic Valve * The pulmonary valve is inadequately visualized, but the Doppler data is adequate for interpretation. * There is no pulmonic valvular stenosis. * Trace pulmonic valvular regurgitation. Great Vessels * The aortic root and proximal ascending aorta are normal sized. Left Ventricular Diastolic Function * Diastolic dysfunction MMode 2D Measurements and Calculations LA dimension 3.5 cm LVOT diam 2.1 cm LVOT area 3.5 cm\S\2 LVAd ap4 40.8 cm\S\2 LVLd ap4 9.4 cm EDV(MOD-sp4) 146.0 ml EDV(sp4-el) 149.8 ml LVAs ap4 27.9 cm\S\2 LVLs ap4 8.8 cm ESV(MOD-sp4) 71.8 ml ESV(sp4-el) 74.7 ml EF(MOD-sp4) 50.8 % EF(sp4-el) 50.1 % LVAd ap2 38.4 cm\S\2 LVLd ap2 8.7 cm EDV(MOD-sp2) 138.9 ml EDV(sp2-el) 144.5 ml LVAs ap2 26.9 cm\S\2 LVLs ap2 8.5 cm ESV(MOD-sp2) 68.9 ml ESV(sp2-el) 72.4 ml EF(MOD-sp2) 50.4 % EF(sp2-el) 49.9 % LVLd %diff -8.47 % EDV(MOD-bp) 145.7 ml LVLs %diff -4.17 % ESV(MOD-bp) 69.3 ml EF(MOD-bp) 52.4 % SV(MOD-sp4) 74.2 ml SI(MOD-sp4) 30.9 ml/m\S\2 SV(MOD-sp2) 70.0 ml SI(MOD-sp2) 29.1 ml/m\S\2 SV(MOD-bp) 76.4 ml SI(MOD-bp) 31.8 ml/m\S\2 SV(sp4-el) 75.1 ml SI(sp4-el) 31.2 ml/m\S\2 SV(sp2-el) 72.1 ml SI(sp2-el) 30.0 ml/m\S\2 Doppler Measurements and Calculations MV E max abby 186.9 cm/sec MV dec time 0.40 sec Ao V2 max 334.5 cm/sec Ao max PG 44.9 mmHg Ao max PG (full) 42.0 mmHg Ao V2 mean 236.0 cm/sec Ao mean PG 25.3 mmHg Ao mean PG (full) 23.8 mmHg Ao V2 VTI 75.2 cm LUCI(I,A) 0.89 cm\S\2 LUCI(I,D) 0.89 cm\S\2 LUCI(V,A) 0.87 cm\S\2 LUCI(V,D) 0.87 cm\S\2 LV V1 max PG 2.8 mmHg LV V1 mean PG 1.5 mmHg LV V1 max 84.1 cm/sec LV V1 mean 57.6 cm/sec LV V1 VTI 19.5 cm SV(LVOT) 67.3 ml SI(LVOT) 28.0 ml/m\S\2
[2016-10-29] VITALS (11 sets, daily range): BP systolic 108–165; BP diastolic 61–78; PULSE 59–77; TEMP 36.2–37; O2SAT 93–98
[2016-10-29] MEDS: ALBUT/IPRATROP 3MG/0.5MG NEB 3 ML VIAL INH SCH ×2 (07:28→11:26)
[2016-10-29 07:43] LABS: BASO % 0.3 %; BASO ABS # 0.02 K/uL (0-0.2); COMPLETE YES; EOS % 3.6 %; HEMATOCRIT 35.4 % (42-52); IG% 0.3 %; LYMPH ABS # 2.61 K/uL (1.2-3.4); MEAN CELL VOLUME 89.2 fL (80-100); MEAN CORPUSCULAR HEMOGLOBIN 30.5 pg (25-34); MEAN CORPUSCULAR HGB CONC 34.2 g/dl (32-36); MEAN PLATELET VOLUME 9.4 fL (7.4-10.4); MONO % 8.7 %; NEUT % 48.1 %; PLATELET COUNT 164 K/uL (130-400); RED BLOOD COUNT 3.97 M/uL (4.7-6.1)
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
[2016-10-29 07:57] LABS: PARTIAL THROMBOPLASTIN RATIO 1.8; PROTHROMBIN TIME (PATIENT) 11.2 SECONDS (9.0-12.0)
[2016-10-29 08:14] LABS: BUN/CREATININE RATIO 11.4 (10-20); CALCIUM 8.5 mg/dl (8.5-10.1); CREATININE 1.3 mg/dl (0.60-1.40); POTASSIUM 4.2 mmol/L (3.5-5.1)
[2016-10-29] MEDS: FLUTICASONE/SALMETEROL 250/50 (ADVAIR) 14 PUFF/1 INHALER INH SCH ×2 (08:37→21:50)
[2016-10-29] MEDS: MEMANTINE 10 MG TAB PO SCH ×2 (08:37→21:53)
[2016-10-29] MEDS: PANTOprazole SOD 40 MG TAB PO SCH (08:38)
[2016-10-29] MEDS: FINASTERIDE 5 MG TAB PO SCH (08:38)
[2016-10-29] MEDS: ISOSORBIDE MONONITRATE 60 MG TABCR PO SCH (08:38)
[2016-10-29] MEDS: ASPIRIN 81 MG ECTAB PO SCH (08:38)
[2016-10-29] MEDS: MAGNESIUM OXIDE 400 MG TAB PO SCH ×2 (08:38→21:51)
[2016-10-29] MEDS: INSULIN ASPART 100 UNITS/ML 3 ML PEN SC SCH ×4 (08:45→22:04)
[2016-10-29] MEDS ORDERED: HEPARIN IV BOLUS 4,000 UNIT in SYRINGE 0 ML IV ONE (09:00)
[2016-10-29] MEDS: HEPARIN 25,000 UNIT/500ML D5W 500 ML IV PRN (09:06)
[2016-10-29] MEDS ORDERED: LOVENOX TEACHING KIT SCH (13:00)
[2016-10-29] MEDS: ENOXAPARIN 150 MG/1ML SYR SQ SCH ×2 (13:57→22:04)
[2016-10-29] MEDS: FUROSEMIDE 40 MG TAB PO SCH (13:58)
[2016-10-29 14:49] LABS: PARTIAL THROMBOPLASTIN RATIO 1.5
[2016-10-29] MEDS: WARFARIN SOD 5 MG TAB PO SCH (16:18)
[2016-10-29] MEDS ORDERED: ATORVASTATIN 40 MG TAB PO SCH (21:00)
[2016-10-29] MEDS: TAMSULOSIN HCL 0.4 MG CAP PO SCH (21:50)
[2016-10-29] MEDS: SERTRALINE HCL 50 MG TAB PO SCH (21:51)
[2016-10-29] MEDS: RANITIDINE HCL 150 MG TAB PO SCH (21:52)
[2016-10-29] MEDS: IPRATROPIUM BROMIDE/ALBUTEROL respimat INH INH SCH (21:55)
[2016-10-29] MEDS: INSULIN GLARGINE SOLOSTAR 100 UNITS/ML 3 ML PEN SQ SCH (22:03)
[2016-10-30 03:05] VITALS: BP 134/66; PULSE 72
[2016-10-30 07:01] LABS: HEMATOCRIT 36.2 % (42-52); MEAN CELL VOLUME 87.2 fL (80-100); MEAN CORPUSCULAR HEMOGLOBIN 29.4 pg (25-34); MEAN CORPUSCULAR HGB CONC 33.7 g/dl (32-36); MEAN PLATELET VOLUME 9.6 fL (7.4-10.4); PLATELET COUNT 183 K/uL (130-400); RED BLOOD COUNT 4.15 M/uL (4.7-6.1); WHITE BLOOD COUNT 7.01 K/uL (4.8-10.8)
[2016-10-30 07:12] LABS: INR 1.1 (0.9-1.1); PARTIAL THROMBOPLASTIN RATIO 1.4; PROTHROMBIN TIME (PATIENT) 11.8 SECONDS (9.0-12.0)
[2016-10-30 07:24] VITALS: BP 136/81; PULSE 63; TEMP 36.4; O2SAT 95
[2016-10-30 07:29] LABS: BUN/CREATININE RATIO 11.1 (10-20); CALCIUM 8.7 mg/dl (8.5-10.1); CREATININE 1.5 mg/dl (0.60-1.40); POTASSIUM 4.3 mmol/L (3.5-5.1)
[2016-10-30] MEDS: FLUTICASONE/SALMETEROL 250/50 (ADVAIR) 14 PUFF/1 INHALER INH SCH (08:46)
[2016-10-30] MEDS: IPRATROPIUM BROMIDE/ALBUTEROL respimat INH INH SCH (08:46)
[2016-10-30] MEDS: FUROSEMIDE 40 MG TAB PO SCH (08:47)
[2016-10-30] MEDS: ISOSORBIDE MONONITRATE 60 MG TABCR PO SCH (08:47)
[2016-10-30] MEDS: ASPIRIN 81 MG ECTAB PO SCH (08:47)
[2016-10-30] MEDS: MEMANTINE 10 MG TAB PO SCH (08:47)
[2016-10-30] MEDS: MAGNESIUM OXIDE 400 MG TAB PO SCH (08:47)
[2016-10-30] MEDS: ENOXAPARIN 150 MG/1ML SYR SQ SCH (08:48)
[2016-10-30] MEDS: PANTOprazole SOD 40 MG TAB PO SCH (08:48)
[2016-10-30] MEDS: INSULIN ASPART 100 UNITS/ML 3 ML PEN SC SCH (08:53)
[2016-10-30] MEDS: FINASTERIDE 5 MG TAB PO SCH (09:06)
[2016-10-30] MEDS ORDERED: CMD5 PO (09:36)
[2016-10-30] MEDS ORDERED: LVNIS150 SQ (09:36)
[2016-10-30] MEDS ORDERED: PRT40 PO (09:36)
--- NOTE | 2016-10-30 09:36 | Discharge Instructions ---
Discharge Instructions Admission Reason for Admission: Chest Pain Discharge Discharge Diagnosis / Problem: (1) Chest pain VTE Date & Time Date of VTE Diagnosis: Oct 26, 2016 Time of VTE Diagnosis: 13:17 Discharge Goals Goal(s): Decrease discomfort, Improve function, Increase independence, Improve disease control, Improve nutritional status, Learn about illness, Diagnostic testing, Therapeutic intervention, Prevent Disease Progression, Specific goals Activity Recommendations Activity Limitations: resume your previous activity . Instructions / Follow-Up Instructions / Follow-Up you have Acute DVT in the left deep peroneal vein you are on coumadin, and Lovenox as well, Lovenox should be stopped when when INR>2 you have Chronic Atrial Fibrillation and CAD, you need to follow up with your instrumentation and control technician You have acute kidney failure on CKD, stage III, in the follow up with PCP about this You are on oral Coumadin bridge by Lovenox, you need to keep appointment with PCP to check PT/INR level, and adjust the dose of Coumadin, and stop Lovenox in appropriate time You need to watch the signs of bleeding such as blood in the stool, cough up blood, any sign of dizziness, you need to report to PCP if have any questions or concerns - you need to follow up with your primary care physician in 1 week, - take medication as instructed, never overdose or any misuse, or take with alcohol, because misuse of medicine may cause organ damage or , call your primary care physician if have questions of medicaitons. - call your primary care physician OR go to local emergency room if has any fever/chill, chest pain, shortness of breathing, nausea/vomiting/abdominal pain , facial droop/slurry speech/local weakness, or if has any questions. - fall precaution - diet as instructed - you need to follow up with your subspecialist - you should understand that it is important to follow up the above instruction , and "not following the above instruction" may cause delayed or missed care of your medical conditions which may cause permanent organ damage and even . Medication Instructions: * Warfarin is a medicine prescribed to prevent blood clots * Warfarin will thin your blood and help prevent new clots * Take your medications exactly as directed * Never skip a dose. Never take a double dose. If you miss a dose, take it as soon as you remember * It is important for your doctor to monitor your prothrombin time (PT). This is a lab test * Keep your appointment for lab tests Risk of Adverse Drug Reactions and Interactions: * Warfarin increases your risk of bleeding * The food you eat and other medications you take can affect how Warfarin works in your body * Ask your doctor about daily aspirin therapy * It is very important to talk with your doctor about all of the other medicines , antibiotics, vitamins or herbal products that you are taking * All of your medication must be approved by your doctor, including new medicines, as well as medicines you have taken before you started taking Warfarin Diet: * In order for Warfarin to work properly, it is important to keep your intake of Vitamin K as consistent as possible * You should avoid any sudden change in Vitamin K intake * Report any significant changes in your diet or weight to your doctor Call your Primary Care doctor if you experience any of the following: * Swelling or Pain in your leg * Sudden, continuous pain deep in a muscle * Pain that worsens when you are active or when you stand still for a long time * Chest Pain * Sudden Shortness of Breath * Rapid or pounding heart beat * Fainting * Dizziness * Cough with blood or bloody sputum * Sweating more than normal * Bruises * Heavy or uncontrolled bleeding * Blood in your urine, stool or vomit * Black or tarry stools Caring for Your Self at Home: * Avoid sitting, standing or lying down for long periods without moving your legs and feet * When traveling by car, stop to get out and move around at least once every 3 hours * On long airplane, train or bus rides, get up and move around when possible * If you can't get up, wiggle your toes and tighten your calves to keep your blood moving Follow Up: It is important for you to keep your follow up appointments with your medical provider. Current Hospital Diet Patient's current hospital diet: AHA Diet (Heart Healthy), Diabetes Type 2 Diet Discharge Diet Recommended Diet: Diabetes Type 2 Diet Pending Studies Studies pending at discharge: no Laboratory Results Hemoglobin A1c Test 10/27/16 06:57 Range/Units Estimated Average Glucose 286 mg/dl Hemoglobin A1c 11.6 H 4.5-5.6 % Medical Emergencies . Who to Call and When: Medical Emergencies: If at any time you feel your situation is an emergency, please call 911 immediately. . Non-Emergent Contact Non-Emergency issues call your: Primary Care Provider, Spinning Lathe Operator . . "Provider Documentation" section prepared by Prashanth Jeffers. VTE Core Measure Inpt VTE Proph given/why not?: Unfractionated heparin SQ, SCD's Reason no anticoag overlap I/P: Treatment provided - N/A Reason no anticoag overlap @DC: Treatment provided - N/A
[2016-10-30 10:03] VITALS: BP 136/81; PULSE 63; TEMP 36.4; O2SAT 95
--- NOTE | 2016-10-30 11:50 | Discharge Summary ---
Discharge Summary Admission Date: Oct 26, 2016 at 08:55 Discharge Date: Oct 30, 2016 Principal Diagnosis: Acute DVT in the left deep peroneal vein Problems/Secondary Diagnoses: Atypical chest pain with history of CAD CABG Immunizations: Have You Had Influenza Vaccine: Yes Influenza Vaccine Date: Jun 12, 2010 History of Tetanus Vaccine?: Yes History of Pneumococcal: Yes History of Hepatitis B Vaccine: Unknown Procedures: No Consultations: Radiology Specialist Medication Reconciliation New Medications: Enoxaparin (Lovenox) 150 Mg/1 Ml Inj 130 MG SQ Q12 for 7 Days should stop when INR>2 Pantoprazole (Pantoprazole Sodium) 40 Mg Tab 40 MG PO QAM for 30 Days, #30 TAB Warfarin Sod (Coumadin) 5 Mg Tab 5 MG PO DAILY@16 for 30 Days, TAB you are on Lovenox as well, Lovenox should be stopped when when INR>2 Continued Medications: Aspirin (Aspirin EC Low Dose) 81 Mg Ectab 81 MG PO QAM, #30 TABS Restart in 3 days if urine clear Atorvastatin (Lipitor) 40 Mg Tab 40 MG PO HS, TAB Finasteride (Proscar) 5 Mg Tab 5 MG PO QAM, TAB Fluticasone Prop/Salmeterol (Advair Diskus 250/50 60 Dose) 1 Ea Aerp 1 PUFF INH BID, #60 Furosemide (Lasix) 40 Mg Tab 40 MG PO QAM Insulin Glargine (Toujeo Solostar) 300 Unit/Ml Inj 20 UNIT INJ QPM Ipratropium-Albuterol (Combivent Respimat) 1 Aer Aer 1 PUFFS INH BID Isosorbide Mononitrate (Isosorbide Mononitrate ER) 60 Mg Tabcr 60 MG PO QAM, #30 Magnesium Oxide (Mg Supplement (Magnesium Oxide) 400 Mg Tab 400 MG PO BID Memantine (Namenda) 10 Mg Tab 10 MG PO BID Nitroglycerin (Nitroglycerin Lingual) 0.4 Mg/[place] Spr Potassium Chloride (Potassium Chloride Er) 10 Meq Cap 10 MEQ PO QAM Ranitidine Hcl (Zantac) 300 Mg Tab 300 MG PO QPM, TAB Sertraline (Zoloft) 50 Mg Tab 50 MG PO QPM Tamsulosin Hcl (Flomax) 0.4 Mg Cap 0.8 MG PO QPM Discharge Exam Sitting up in a chair, doing well, no complaining Review of Systems: Constitutional: No chills, No fatigue, No fever, No problem reported, No sweats, No weakness, No weight loss ENT: No dental problems, No hearing loss, No nasal symptoms, No problem reported, No sore throat, No tinnitus, No trouble swallowing, No unusual epistaxis Respiratory: No cough, No dyspnea at rest, No dyspnea on exertion, No hemoptysis, No problem reported, No shortness of breath, No sputum, No wheezing Cardiovascular: No PND, No chest pain, No claudication, No edema, No orthopnea, No palpitations, No problem reported Abdomen: No GI bleeding, No constipation, No diarrhea, No nausea, No pain, No problem reported, No vomiting Musculoskeletal: No calf pain, No joint pain, No muscle pain, No problem reported, No swelling Genitourinary - Male: No dysuria, No hematuria, No impotence, No lesions, No penile discharge, No problem reported, No urinary frequency, No urinary hesitancy, No urinary incontinence, No urinary retention, No urinary urgency Neurologic: No balance problems, No memory loss, No numbness/tingling, No paralysis, No problem reported, No vertigo, No weakness Psychiatric: No anhedonism, No anxiety, No depression symptoms, No insomnia , No problem reported, No substance abuse Endocrine: No excessive thirst, No excessive urination, No fatigue, No problem reported Hematologic / Lymphatic: No abnormal bleeding/bruising, No clotting problems , No night sweats, No problem reported, No swollen lymph nodes Integumentary: No bleeding, No color change, No itch, No new/changing skin lesions, No problem reported, No rash Physical Exam: General Appearance: WD/WN, no apparent distress, + obese (chronically ill- looking) Eyes: normal inspection, PERRL ENT: normal ENT inspection, hearing grossly normal Neck: supple, no adenopathy, thyroid normal, no JVD Respiratory/Chest: chest non-tender, normal breath sounds, no respiratory distress, no accessory muscle use, + decreased breath sounds Cardiovascular: regular rate, rhythm, no edema, no gallop, no JVD Abdomen / GI: normal bowel sounds, non tender, soft, no organomegaly, no pulsatile mass Extremities: normal inspection, no calf tenderness, normal capillary refill , no pedal edema Neurologic/Psychiatric: rangeland management specialist II-XII nml as tested, no motor/sensory deficits , alert, normal mood/affect, normal reflexes Skin: normal color, warm/dry Hospital Course 76 yo M with was admitted because of new onset chest pain that started at 0530 when he was putting small pieces of wood on a fire. He was admitted on 2016 Chest Pain, shortness of breath Chronic diastolic CHF Chronic Atrial Fibrillation Acute DVT in the left deep peroneal vein - Developed afib with RVR 10/26, new found DVT, and was started on a heparin gtt - will continue anticoagulation with lovenox bridge to coumadin with stable hgb. - Troponin trended down 0.034--> 0.023--> 0.019 - Follow hemmocult all stools, have been negative.- add on protonix prophylactically. - Discussion held with cardiology and recommending heparin, likely discharge on coumadin. Ok to start bridge with lovenox . CM assisting with discharge planning for lovenox copay and coumadin follow up. Again has detail discussed with patient about the bridge of Lovenox and Coumadin, counseling him about the important to check PT/INR accordingly - Cont Toprol XL 25 mg daily for nonsustained vtach, and asa 81 mg daily. - Echo completed * -- Conclusions -- * 1. Normal LV size and wall thickness. * 2. Low normal overall systolic function. LVEF 50-55%. Inferior and inferolateral wall severe hypokinesis. Apical septal wall is akinetic. * 3. RV size is normal with mild RV dysfunction. * 4. Moderate aortic stenosis with mild aortic insufficiency. * 5. Mild to moderate mitral stenosis with trace MR. * 6. Diastolic dysfunction. * 7. Compared with prior study on 07/04/2016: Wall motion abnormalities and mitral stenosis is better appreciated. No significant change to aortic stenosis or overall LV function. - EKG reviewed showing atrial fibrillation, dx back in Jul 2014. Was initially on coumadin although developed hematuria in Sep 2015 so was discontinued. HTN - Trending around 120-150s at this time. - well controlled at this time with home medications including imdur 60 mg, added toprol XL 25 mg today. - Restart lasix today, 40 mg PO. VICTORIANO on CKD, stage III - Cr. initially 1.8 and today is 1.4, baseline appears to be ~1.4, is in baseline - hold nephrotoxins including lasix 40 mg daily - pt has not taken this x 3 days now. He appears to be euvolemic on exam. - BP remains stable with changes made as above. DM II - Uses [facility] as an outpt, not available on formulary- will ask pharmacy to adjust for senior care coverage. Continue Lantus 20 U QPM. - personal development educator consulted and recommending 8-10 U with meals and senior care coverage at night. Discussion held with the patient and he is agreeable to this. Will need to discuss with as she is who manages his meds - Will use ISS with accuchecks ACHS for now - Diabetic/ aha diet GERD - Cont ranitidine Depression - Cont sertraline 50 mg daily Tobacco Abuse - Cessation encouraged, offerend nicotine patch. Continue combivent inhaler 1 puff daily - breath sounds are improved today with good air flow. + mild exp wheeze - CXR reviewed and shows mild nonspecific bibasilar interstitial prominence. Mild stable cardiomegaly. Hx colon carcinoma BPH-continue flomax 0.8 mg daily QPM DVT ppx: SCDs, heparin sq CODE STATUS: FULL CODE Disposition: From home, plan discharge home with the oral Coumadin bridge by Lovenox tomorrow, PCP appointment has been setting up, will discharge today in stable condition Instructions / Follow-Up you have Acute DVT in the left deep peroneal vein you are on coumadin, and Lovenox as well, Lovenox should be stopped when when INR>2 you have Chronic Atrial Fibrillation and CAD, you need to follow up with your upper lining cementer You have acute kidney failure on CKD, stage III, in the follow up with PCP about this You are on oral Coumadin bridge by Lovenox, you need to keep appointment with PCP to check PT/INR level, and adjust the dose of Coumadin, and stop Lovenox in appropriate time You need to watch the signs of bleeding such as blood in the stool, cough up blood, any sign of dizziness, you need to report to PCP if have any questions or concerns - you need to follow up with your primary care physician in 1 week, - take medication as instructed, never overdose or any misuse, or take with alcohol, because misuse of medicine may cause organ damage or , call your primary care physician if have questions of medicaitons. - call your primary care physician OR go to local emergency room if has any fever/chill, chest pain, shortness of breathing, nausea/vomiting/abdominal pain , facial droop/slurry speech/local weakness, or if has any questions. - fall precaution - diet as instructed - you need to follow up with your subspecialist - you should understand that it is important to follow up the above instruction , and "not following the above instruction" may cause delayed or missed care of your medical conditions which may cause permanent organ damage and even . Total Time Spent: Greater than 30 minutes This includes examination of the patient, discharge planning, medication reconciliation, and communication with other providers. Discharge Instructions Please refer to the electronic Patient Visit Report (Discharge Instructions) for additional information. Additional Copies To RV. Pond MD; Ramiro Patten M.D.
== END 2016-10-30 11:20 | disposition home or self-care (01) | DRG 300 ==
LOC: ENRESERVTM → ENRESERVDT → EDBD 06:27 → C.EDA 06:29 → C.2T 08:55 → EDBEDREQ 09:34 → C.MS2W 10-29 11:23
PROVIDERS: ADMIT Hospitalist; ATTEND Hospitalist
DX: I82.492 Acute embolism and thrombosis of other specified deep vein of left lower extremity (principal); N17.9 Acute kidney failure, unspecified; I50.22 Chronic systolic (congestive) heart failure; I13.0 Hypertensive heart and chronic kidney disease with heart failure and stage 1 through stage 4 chronic kidney disease, or unspecified chronic kidney disease; R07.89 Other chest pain; E11.65 Type 2 diabetes mellitus with hyperglycemia; I48.2 Chronic atrial fibrillation; N18.3 Chronic kidney disease, stage 3 (moderate); J44.9 Chronic obstructive pulmonary disease, unspecified; J45.909 Unspecified asthma, uncomplicated; Z95.1 Presence of aortocoronary bypass graft; I25.10 Atherosclerotic heart disease of native coronary artery without angina pectoris; G30.9 Alzheimer's disease, unspecified; F02.80 Dementia in other diseases classified elsewhere, unspecified severity, without behavioral disturbance, psychotic disturbance, mood disturbance, and anxiety; I25.2 Old myocardial infarction; F32.9 Major depressive disorder, single episode, unspecified; I25.5 Ischemic cardiomyopathy; K21.9 Gastro-esophageal reflux disease without esophagitis; E78.00 Pure hypercholesterolemia, unspecified; N40.0 Benign prostatic hyperplasia without lower urinary tract symptoms; F17.220 Nicotine dependence, chewing tobacco, uncomplicated; F12.10 Cannabis abuse, uncomplicated; E66.9 Obesity, unspecified; Z51.81 Encounter for therapeutic drug level monitoring; Z79.899 Other long term (current) drug therapy; Z79.4 Long term (current) use of insulin; Z79.82 Long term (current) use of aspirin; Z85.038 Personal history of other malignant neoplasm of large intestine; Z86.718 Personal history of other venous thrombosis and embolism; Z68.39 Body mass index [BMI] 39.0-39.9, adult; Z83.3 Family history of diabetes mellitus; Z82.49 Family history of ischemic heart disease and other diseases of the circulatory system

== ENCOUNTER → 2016-11-15 | Outpatient (CLI) | payer OTHER ==
[~2016-11-15] MED LIST changes: +ASPI81TA28 PO; +ATOR-24 PO; +CEPH-571 PO; -CIPR-255 PO; +CMD5 PO; -GLIM4TAB2 PO; -LIDO2GEL9 TOP; -LPT40 PO; +LVNIS150 SQ; -METO1TAB31 PO; +NITR0.4S76 PO; +NITR1CAP33 PO; +NTRO1 EXT; +NVLGI/PEN SC; -OXYC7.5T65 PO; +PRT40 PO; +WARF5TAB90 PO; -[UNRECOGNIZED DRUG - OTHER] SC
[2016-11-15 14:58] LABS: BLOOD UREA NITROGEN 34 mg/dl (7-18); BUN/CREATININE RATIO 17.9 (10-20); CALCIUM 8.6 mg/dl (8.5-10.1); CARBON DIOXIDE 30 mmol/L (21-32); CHLORIDE 100 mmol/L (98-107); GLUCOSE 329 mg/dl (70-99); MAGNESIUM 1.9 mg/dl (1.8-2.4); SODIUM 138 mmol/L (136-145)
[2016-11-15 15:13] LABS: BETA-HYDROXYBUTYRATE 0.96 mg/dL (0.2-2.81)
== END | disposition home or self-care (01) ==
LOC: C.LAB1850 13:12
PROVIDERS: ATTEND Internal Medicine
DX: N17.9 Acute kidney failure, unspecified (principal)

== ENCOUNTER → 2016-12-23 | Outpatient (CLI) | payer OTHER ==
[~2016-12-23] MED LIST changes: +FRS/40 PO; +INSU1.2I SC; +ISOS60TA25 PO; +LPR25 PO; +NITR0.1S PO; -NITR0.4S76 PO; +NITR50CA39 PO; +WARF10TA4 PO; +WARF6TAB5 PO; +ZLF/50 PO
[2016-12-23 09:48] LABS: BASO % 0.3 %; BASO ABS # 0.03 K/uL (0-0.2); COMPLETE YES; EOS % 3.4 %; HEMATOCRIT 38.9 % (42-52); IG% 0.3 %; LYMPH ABS # 2.45 K/uL (1.2-3.4); MEAN CELL VOLUME 86.6 fL (80-100); MEAN CORPUSCULAR HEMOGLOBIN 29.6 pg (25-34); MEAN CORPUSCULAR HGB CONC 34.2 g/dl (32-36); MEAN PLATELET VOLUME 9.8 fL (7.4-10.4); MONO % 7.9 %; NEUT % 61.1 %; PLATELET COUNT 233 K/uL (130-400); RED BLOOD COUNT 4.49 M/uL (4.7-6.1); WHITE BLOOD COUNT 9.07 K/uL (4.8-10.8)
[2016-12-23 09:56] LABS: URINE APPEARANCE TURBID (CLEAR); URINE BILIRUBIN NEG (NEG); URINE COLOR YELLOW; URINE EPITHELIAL CELL AUTO >30 /lpf (0-5); URINE NITRITE NEG (NEG); URINE PH 5.5 (4.5-7.5); URINE SPECIFIC GRAVITY 1.014 (1.000-1.030); UROBILINOGEN NEG (NEG); ZZURINE CULT IF INDIC CATH YES
[2016-12-23 10:05] LABS: MANUAL MICROSCOPIC REQUIRED? NO; REVIEW REQ? NO
[2016-12-23 10:26] LABS: ALB/GLOB RATIO 0.8 (0.9-2); ALKALINE PHOSPHATASE 89 U/L (45-117); ALT/SGPT 16 U/L (12-78); AST/SGOT 11 U/L (15-37); BLOOD UREA NITROGEN 23 mg/dl (7-18); BUN/CREATININE RATIO 15.3 (10-20); CALCIUM 8.8 mg/dl (8.5-10.1); CARBON DIOXIDE 30 mmol/L (21-32); CHLORIDE 102 mmol/L (98-107); CHOLESTEROL 118 mg/dl (0-200); CHOLESTEROL/HDL RATIO 3.8; GLUCOSE 232 mg/dl (70-99); HDL CHOLESTEROL 31 mg/dl; LDL CHOLESTEROL CALCULATED 63 mg/dl; MAGNESIUM 1.8 mg/dl (1.8-2.4); POTASSIUM 4.2 mmol/L (3.5-5.1); SODIUM 139 mmol/L (136-145); TRIGLYCERIDES 121 mg/dl (0-150); VERY LOW DENSITY LIPOPROT CALC 24 mg/dl
[2016-12-23 10:40] LABS: ESTIMATED AVERAGE GLUCOSE 272 mg/dl; HA1C FLAG Normal (Normal)
--- NOTE | 2016-12-23 11:31 | DIAGNOSTIC IMAGING REPORT ---
CHEST 2 VIEWS ROUTINE HISTORY: Short of breath. COUGH COMPARISON: Chest 10/26/2016. FINDINGS: The heart remains mildly enlarged. There are poststernotomy changes. Right jugular Port-A-Cath terminates in the SVC. No pneumothorax. No pleural effusions. There are low lung volumes. Mild diffuse interstitial thickening persists. IMPRESSION: Stable cardiomegaly and mild diffuse interstitial thickening which is likely chronic. No new focal lung consolidations to suggest pneumonia. Electronically signed by: Jeramie Jacobs M.D. 12/23/2016 11:29 AM Dictated Date/Time: 12/23/2016 11:28 AM
--- NOTE | 2016-12-29 12:42 | CODING QUERY MEDICAL NECESSITY ---
CQSUPPORTING DIAGNOSIS NEEDED A supporting diagnosis is required for the test/procedure performed on this patient in order for us to be reimbursed by the patient's insurance. Please provide a supporting diagnosis for the following test/procedure listed below next to the test name along with your signature. *If there is no additional diagnosis for this patient that would support the following test/procedure please document that below next to the test/procedure. Test(s)/Procedure(s) that require a supporting diagnosis: DOS 12/23/16 VITAMIN D Provider Signature: Date: Thank you Annabella Rangel [employer] Once completed, please kindly fax back to [phone] For questions please call [phone]
== END | disposition home or self-care (01) ==
LOC: C.RAD1850 08:10
PROVIDERS: ATTEND Internal Medicine
DX: R06.02 Shortness of breath (principal); R05 Cough; R33.9 Retention of urine, unspecified; N31.9 Neuromuscular dysfunction of bladder, unspecified; E11.65 Type 2 diabetes mellitus with hyperglycemia; E83.42 Hypomagnesemia; D64.9 Anemia, unspecified; E55.9 Vitamin D deficiency, unspecified

== ENCOUNTER → 2017-01-06 | Outpatient (CLI) | payer OTHER ==
[2017-01-06 18:15] LABS: URINE APPEARANCE CLEAR (CLEAR); URINE BILIRUBIN NEG (NEG); URINE COLOR YELLOW; URINE EPITHELIAL CELL AUTO 0-5 /lpf (0-5); URINE NITRITE NEG (NEG); URINE PH 6.5 (4.5-7.5); URINE SPECIFIC GRAVITY 1.012 (1.000-1.030); UROBILINOGEN NEG (NEG)
[2017-01-06 18:31] LABS: MANUAL MICROSCOPIC REQUIRED? NO; REVIEW REQ? YES
== END | disposition home or self-care (01) ==
LOC: C.LABPVFM 13:04
PROVIDERS: ATTEND Internal Medicine
DX: N28.9 Disorder of kidney and ureter, unspecified (principal)

== ENCOUNTER → 2017-01-17 | Outpatient (CLI) | payer OTHER ==
[2017-01-17 12:29] LABS: URINE APPEARANCE CLEAR (CLEAR); URINE BILIRUBIN NEG (NEG); URINE COLOR YELLOW; URINE EPITHELIAL CELL AUTO 0-5 /lpf (0-5); URINE NITRITE POS (NEG); URINE SPECIFIC GRAVITY 1.014 (1.000-1.030); UROBILINOGEN NEG (NEG)
[2017-01-17 12:30] LABS: MANUAL MICROSCOPIC REQUIRED? NO; REVIEW REQ? NO
== END | disposition home or self-care (01) ==
LOC: C.LABPVFM 10:32
PROVIDERS: ATTEND Internal Medicine
DX: R35.0 Frequency of micturition (principal); R39.9 Unspecified symptoms and signs involving the genitourinary system

== ENCOUNTER → 2017-03-07 | Outpatient (CLI) | payer OTHER ==
[2017-03-07 17:50] LABS: INR 1.5 (0.9-1.1); PROTHROMBIN TIME (PATIENT) 16.7 SECONDS (9.0-12.0)
[2017-03-07 18:24] LABS: BLOOD UREA NITROGEN 23 mg/dl (7-18)
[2017-03-07 18:28] LABS: PROSTATE SPECIFIC ANTIGEN 0.031 ng/ml (0.000-4.000)
--- NOTE | 2017-03-11 13:47 | CODING QUERY MEDICAL NECESSITY ---
SUPPORTING DIAGNOSIS NEEDED A supporting diagnosis is required for the test/procedure performed on this patient in order for us to be reimbursed by the patient's insurance. Please provide a supporting diagnosis for the following test/procedure listed below next to the test name along with your signature. *If there is no additional diagnosis for this patient that would support the following test/procedure please document that below next to the test/procedure. Test(s)/Procedure(s) that require a supporting diagnosis: * PSA DIAGNOSIS: Provider Signature: Date: Thank you Nabila Pennington [employer] Once completed, please kindly fax back to [phone] For questions please call [phone]
== END | disposition home or self-care (01) ==
LOC: C.LABPVFM 13:42
PROVIDERS: ATTEND Internal Medicine Interventional Cardiology
DX: I48.91 Unspecified atrial fibrillation (principal); I82.409 Acute embolism and thrombosis of unspecified deep veins of unspecified lower extremity; N31.9 Neuromuscular dysfunction of bladder, unspecified; R35.0 Frequency of micturition

== ENCOUNTER 2017-04-13 02:48 | Observation (INO) | payer OTHER ==
[2017-04-13] VITALS (7 sets, daily range): BP systolic 105–138; BP diastolic 53–80; PULSE 55–71; TEMP 36.4–36.7; O2SAT 97–98; BMI 38.5
[~2017-04-13] VITALS: Ht 180.3 cm; Wt 123.1 kg
[~2017-04-13 02:48] MED LIST changes: -ASPI81TA28 PO; -CEPH-571 PO; -FRS/40 PO; -INSU1.2I SC; -ISOS60TA25 PO; -LPR25 PO; -NITR0.1S PO; +NITR0.4S76 PO; -NITR1CAP33 PO; -NITR50CA39 PO; -NTRO1 EXT; -NVLGI/PEN SC; -WARF10TA4 PO; -WARF5TAB90 PO; -WARF6TAB5 PO; -ZLF/50 PO
[2017-04-13] MEDS ORDERED: NVLGI/PEN SC (03:36)
[2017-04-13] MEDS ORDERED: WARF5TAB90 PO (03:36)
[2017-04-13] MEDS ORDERED: ASPI81TA28 PO (03:36)
[2017-04-13] MEDS ORDERED: CMD5 PO (03:36)
[2017-04-13] MEDS ORDERED: NITR1CAP33 PO (03:36)
[2017-04-13 04:09] LABS: BASO % 0.7 %; BASO ABS # 0.06 K/uL (0-0.2); COMPLETE YES; EOS % 2.4 %; HEMATOCRIT 42.6 % (42-52); IG% 0.2 %; LYMPH % 31.6 %; LYMPH ABS # 2.74 K/uL (1.2-3.4); MEAN CELL VOLUME 87.3 fL (80-100); MEAN CORPUSCULAR HEMOGLOBIN 30.7 pg (25-34); MEAN CORPUSCULAR HGB CONC 35.2 g/dl (32-36); MEAN PLATELET VOLUME 10.3 fL (7.4-10.4); MONO % 7.3 %; NEUT % 57.8 %; PLATELET COUNT 198 K/uL (130-400); RED BLOOD COUNT 4.88 M/uL (4.7-6.1); WHITE BLOOD COUNT 8.68 K/uL (4.8-10.8)
--- NOTE | 2017-04-13 04:17 | EMERGENCY ROOM VISIT NOTE ---
History Report prepared by [place]: Janet Jay Under the Supervision of: Dr. Janina Alvarado D.O. First contact with patient: 03:28 Chief Complaint: ABDOMINAL PAIN Stated Complaint: ABDOMINAL PAIN Nursing Triage Summary: Pt reports intermittent abdominal pain for months. Tonight patient was unable to get any relief. Pt takes Zantac. Pt reports feeling lightheaded and nausea. Denies vomiting. History of Present Illness The patient is a 76 year old male who presents to the Emergency Room with complaints of worsening abdominal pain starting this evening. The patient states that he has CHF and it seems to be acting up. He states that he has chest pain, nausea, and shortness of breath. He describes the pain as a fullness. He notes that two weeks ago he was pushing something in his house when his chest cracked. He states he woke his up tonight because he couldn' t sleep from the discomfort. He notes he has not been eating or drinking normally and he takes Coumadin. The patient currently rates his pain as a 2/10 in severity. Source of History: patient Onset: this evening Position: abdomen Symptom Intensity: 2/10 Quality: other (fullness) Timing: worsening Associated Symptoms: + chest pain, + SOB, + nausea Note: The patient complains of his chest cracking and not eating or drinking normally. Review of Systems See HPI for pertinent positives & negatives. A total of 10 systems reviewed and were otherwise negative. Past Medical & Surgical Medical Problems: (1) Alzheimers disease (2) Anxiety (3) Asthma (4) Atrial fibrillation (5) CAD (coronary artery disease) (6) Chest pain (7) CHF (congestive heart failure) (8) CHF (congestive heart failure) (9) CHF exacerbation (10) Cholelithiasis (11) Colon cancer (12) COPD (chronic obstructive pulmonary disease) (13) Depression (14) Diab Mckenna Wo Compl, Type Ii Or Unspec Type, Not Uncntrld (15) DM (diabetes mellitus) (16) DVT (deep venous thrombosis) (17) Emphysema (18) Gross hematuria (19) Hypertension Nos (20) [place] (myocardial infarction) (21) Mild sleep apnea (22) Peripheral neuropathy (23) Pure Hypercholesterolem (24) Shortness of breath Surgical Problems: (1) H/O hemicolectomy (2) History of coronary artery stent placement (3) Hx of CABG Family History Diabetes mellitus Heart disease Hypertension Social History Smoking Status: Never Smoker Alcohol Use: occasionally Drug Use: none Marital Status: Housing Status: lives with significant other Occupation Status: retired Current/Historical Medications Scheduled Aspirin (Aspirin Ec), 81 MG PO DAILY Atorvastatin (Lipitor), 40 MG PO HS Finasteride (Proscar), 5 MG PO QAM Fluticasone Prop/Salmeterol (Advair Diskus 250/50 60 Dose), 1 PUFF INH BID Furosemide (Lasix), 40 MG PO QAM Insulin Aspart (Novolog Flexpen), 8 UNITS SC QDD Insulin Glargine (Toujeo Solostar), 26 UNIT INJ QPM Ipratropium-Albuterol (Combivent Respimat), 1 PUFFS INH BID Isosorbide Mononitrate (Isosorbide Mononitrate ER), 60 MG PO QAM Magnesium Oxide (Mg Supplement (Magnesium Oxide), 400 MG PO BID Memantine (Namenda), 10 MG PO BID Nitrofurantoin Macrocrystals (Macrodantin), 50 MG PO HS Potassium Chloride (Potassium Chloride Er), 10 MEQ PO QAM Ranitidine Hcl (Zantac), 300 MG PO QPM Sertraline (Zoloft), 50 MG PO QPM Tamsulosin Hcl (Flomax), 0.8 MG PO QPM Warfarin Sod (Coumadin), 10 MG PO 2XWK Warfarin Sodium (Coumadin), 12 MG PO 5XWK Scheduled PRN Nitroglycerin (Nitroglycerin Lingual), 1 DOSE PO DIRECTED PRN for Chest Pain Allergies Coded Allergies: Codeine (Verified Adverse Reaction, Intermediate, EMESIS, 04/13/17) Iodinated Diagnostic Agents (Verified Adverse Reaction, Mild, NAUSEA, ) Physical Exam Vital Signs Date Time Temp Pulse Resp B/P (MAP) Pulse Ox O2 Delivery O2 Flow Rate FiO2 04/13/17 06:05 58 04/13/17 06:01 53 21 130/78 98 Nasal Cannula 2.0 04/13/17 05:31 58 20 127/81 96 Nasal Cannula 2.0 04/13/17 05:05 97 Nasal Cannula 2.0 04/13/17 05:01 63 23 129/78 88 Room Air 04/13/17 04:31 63 23 119/77 92 Room Air 04/13/17 04:01 61 24 133/76 93 Room Air 04/13/17 03:31 64 24 136/75 94 Room Air 04/13/17 03:09 Room Air 04/13/17 03:09 36.6 74 22 158/89 94 Room Air 04/13/17 03:00 60 Physical Exam General: Slightly lethargic. HEENT: Head - normocephalic and atraumatic Pupils are equal, round, and reactive to light. Extraocular eye muscles are intact, and sclera are anicteric. Nose - moist nasal mucosa without discharge. Mouth - moist buccal mucosa. Oropharynx is nonerythematous and there is no tonsillar exudate or edema noted. Neck: Supple; no JVD, nuchal rigidity, cervical lymphadenopathy. Heart: Irregularly irregular heart beat. There is a normal S1 and S2 with no murmurs, clicks, or gallops appreciated. Lungs: Diminished breath sounds in both lung bases. With palpation Abdomen: Soft, mild pain in LLQ, nondistended, with good bowel sounds. There are no palpable pulsatile masses or hepatosplenomegaly. There is no guarding, rigidity, or rebound noted. Extremities: No evidence of cyanosis, clubbing, or edema. There are easily palpable peripheral pulses. Skin: warm and dry with poor turgor and no rashes. Extremely pale. Medical Decision & Procedures ER Provider Diagnostic Interpretation: CHEST X-RAY: Findings: The results were interpreted by me. Significant cardiomegaly. Sternotomy wires in place. Evidence of CHF. Laboratory Results 04/13/17 02:23 Red Blood Count 4.88, Mean Corpuscular Volume 87.3, Mean Corpuscular Hemoglobin 30.7, Mean Corpuscular Hemoglobin Concent 35.2, Mean Platelet Volume 10.3, Neutrophils (%) (Auto) 57.8, Lymphocytes (%) (Auto) 31.6, Monocytes (%) (Auto) 7.3, Eosinophils (%) (Auto) 2.4, Basophils (%) (Auto) 0.7, Neutrophils # (Auto) 5.02, Lymphocytes # (Auto) 2.74, Monocytes # (Auto) 0.63, Eosinophils # (Auto) 0.21, Basophils # (Auto) 0.06 04/13/17 02:23 Test 04/13/17 02:23 04/13/17 04:20 White Blood Count 8.68 K/uL (4.8-10.8) Red Blood Count 4.88 M/uL (4.7-6.1) Hemoglobin 15.0 g/dL (14.0-18.0) Hematocrit 42.6 % (42-52) Mean Corpuscular Volume 87.3 fL (80-100) Mean Corpuscular Hemoglobin 30.7 pg (25-34) Mean Corpuscular Hemoglobin Concent 35.2 g/dl (32-36) Platelet Count 198 K/uL (130-400) Mean Platelet Volume 10.3 fL (7.4-10.4) Neutrophils (%) (Auto) 57.8 % Lymphocytes (%) (Auto) 31.6 % Monocytes (%) (Auto) 7.3 % Eosinophils (%) (Auto) 2.4 % Basophils (%) (Auto) 0.7 % Neutrophils # (Auto) 5.02 K/uL (1.4-6.5) Lymphocytes # (Auto) 2.74 K/uL (1.2-3.4) Monocytes # (Auto) 0.63 K/uL (0.11-0.59) Eosinophils # (Auto) 0.21 K/uL (0-0.5) Basophils # (Auto) 0.06 K/uL (0-0.2) RDW Standard Deviation 44.3 fL (36.4-46.3) RDW Coefficient of Variation 13.8 % (11.5-14.5) Immature Granulocyte % (Auto) 0.2 % Immature Granulocyte # (Auto) 0.02 K/uL (0.00-0.02) Prothrombin Time 18.0 SECONDS (9.0-12.0) Prothromb Time International Ratio 1.6 (0.9-1.1) Activated Partial Thromboplast Time 32.5 SECONDS (21.0-31.0) Partial Thromboplastin Ratio 1.3 Anion Gap 7.0 mmol/L (3-11) Est Creatinine Clear Calc Drug Dose 49.0 ml/min Estimated GFR () 44.1 Estimated GFR (Non- 38.1 BUN/Creatinine Ratio 21.2 (10-20) Calcium Level 8.5 mg/dl (8.5-10.1) Total Bilirubin 0.5 mg/dl (0.2-1) Aspartate Amino Transf (AST/SGOT) 20 U/L (15-37) Alanine Aminotransferase (ALT/SGPT) 24 U/L (12-78) Alkaline Phosphatase 95 U/L (45-117) Total Creatine Kinase 47 U/L (39-308) Creatine Kinase MB 1.2 ng/ml (0.5-3.6) Creatine Kinase MB Ratio 2.6 (0-3.0) Pro-B-Type Natriuretic Peptide 2533 pg/ml (0-1800) Total Protein 7.5 gm/dl (6.4-8.2) Albumin 3.4 gm/dl (3.4-5.0) Globulin 4.1 gm/dl (2.5-4.0) Albumin/Globulin Ratio 0.8 (0.9-2) Urine Color YELLOW Urine Appearance TURBID (CLEAR) Urine pH 5.0 (4.5-7.5) Urine Specific [place] 1.016 (1.000-1.030) Urine Protein 1+ (NEG) Urine Glucose (UA) 2+ (NEG) Urine Ketones NEG (NEG) Urine Occult Blood 2+ (NEG) Urine Nitrite POS (NEG) Urine Bilirubin NEG (NEG) Urine Urobilinogen NEG (NEG) Urine Leukocyte Esterase LARGE (NEG) Urine WBC (Auto) >30 /hpf (0-5) Urine RBC (Auto) 10-30 /hpf (0-4) Urine Hyaline Casts (Auto) 1-5 /lpf (0-5) Urine Epithelial Cells (Auto) >30 /lpf (0-5) Urine Bacteria (Auto) 4+ (NEG) Urine Pathogenic Casts /lpf (0) Urine Yeast (Auto) (NONE PRSENT) Laboratory results per my review. ECG Indication: abdominal pain Rate (beats per minute): 63 Rhythm: atrial fibrillation Findings: no acute ischemic change, no ectopy ED Course 0351: Past medical records reviewed. The patient was evaluated in room A11A. A complete history and physical exam was performed. A twelve-lead EKG was obtained as described above. Laboratory studies were drawn as above. The patient had chest x-ray as described above. 0510: I reviewed the results of the labs and x-ray with the patient's . The patient was asleep. Upon awakening, he denied any abdominal discomfort but described a fullness in his epigastrium. He states that this is typical when he has episodes of CHF. The patient is currently taking 40 mg of oral Lasix. 0535: Discussed the patient's case with Dr. Wong. The patient will be evaluated for further management. Medical Decision This is a 76-year-old male patient who presents to the emergency department tonight complaining of epigastric fullness radiating into his chest and nausea. Differential diagnoses include cardiac ischemia, CHF, GI bleed, dehydration, anemia, colitis. LABS: Urinalysis turbid urine 2+ blood pos nitrite Large leukocyte esterase 4+ bacteria Greater than 30 whites No leukocytosis Stable H&H Creatine 1.7 BUN 36 Glucose 298 BNP 2533 INR 1.6 Troponin 0.021 Chest x-ray shows evidence of congestive heart failure with a BNP greater than 2500. This episode seems consistent with CHF. On urinalysis, there was evidence of a UTI. The patient has a history of this as he self caths. The patient explains that he is currently on an antibiotic to try to prevent these infections. The patient is most concerned about the epigastric fullness that radiates into his chest causing chest patient has a cardiac history. EKG is unchanged. Troponin was 0.021. I have discussed the case with the [facility] hospitalist and they will evaluate for further management. Medication Reconcilliation Current Medication List: was personally reviewed by me Blood Pressure Screening Patient's blood pressure: Normal blood pressure Blood pressure disposition: Did not require urgent referral Consults Time Called: 0530 Consulting Physician: Dr. Wong Returned Call: 0535 Discussed the patient's case with Dr. Wong. The patient will be evaluated for further management. Impression Primary Impression: CHF (congestive heart failure) Additional Impressions: Substernal chest pain UTI (urinary tract infection) Scribe Attestation The scribe's documentation has been prepared under my direction and personally reviewed by me in its entirety. I confirm that the note above accurately reflects all work, treatment, procedures, and medical decision making performed by me. Departure Information Dispostion Being Evaluated By Hospitalist Referrals RV. Pond MD (PCP) Patient Instructions My [facility] Health Problem Qualifiers Primary Impression: CHF (congestive heart failure) Congestive heart failure type: combined Congestive heart failure chronicity: acute on chronic Qualified Codes: I50.43 - Acute on chronic combined systolic (congestive) and diastolic (congestive) heart failure Additional Impressions: UTI (urinary tract infection) Urinary tract infection type: catheter-associated UTI Indwelling urinary catheter type: unspecified Encounter type: initial encounter Qualified Codes : T83.511A - Infection and inflammatory reaction due to indwelling urethral catheter, initial encounter; N39.0 - Urinary tract infection, site not specified
[2017-04-13 04:19] LABS: BUN/CREATININE RATIO 21.2 (10-20); CALCIUM 8.5 mg/dl (8.5-10.1); CREATININE 1.7 mg/dl (0.60-1.40); POTASSIUM 4.2 mmol/L (3.5-5.1)
[2017-04-13 04:21] LABS: INR 1.6 (0.9-1.1); PARTIAL THROMBOPLASTIN RATIO 1.3
[2017-04-13 04:24] LABS: ALB/GLOB RATIO 0.8 (0.9-2); CKMB/CK RATIO 2.6 (0-3.0)
[2017-04-13 04:29] LABS: URINE APPEARANCE TURBID (CLEAR); URINE BILIRUBIN NEG (NEG); URINE COLOR YELLOW; URINE EPITHELIAL CELL AUTO >30 /lpf (0-5); URINE NITRITE POS (NEG); URINE SPECIFIC GRAVITY 1.016 (1.000-1.030); UROBILINOGEN NEG (NEG)
[2017-04-13 04:46] LABS: MANUAL MICROSCOPIC REQUIRED? NO; REVIEW REQ? YES
[2017-04-13] MEDS ORDERED: POLYETHYLENE (MIRALAX) 17 GM PACK PO PRN (06:15)
[2017-04-13] MEDS ORDERED: MoRPHine SULFATE 2 MG/ML CARP IV PRN (06:15)
[2017-04-13] MEDS ORDERED: NITROGLYCERIN 0.4 MG SL PER TAB CHARGE SL PRN (06:15)
[2017-04-13] MEDS ORDERED: ALUMINUM/MAGNESIUM/SIMETH (MAALOX MAX) 30 ML UDC PO PRN (06:15)
[2017-04-13] MEDS ORDERED: ONDANSETRON INJ 2 MG/ML 2 ML VIAL IV PRN (06:15)
[2017-04-13] MEDS ORDERED: ACETAMINOPHEN 325 MG TAB PO PRN (06:15)
[2017-04-13] MEDS ORDERED: MAGNESIUM HYDROXIDE SUSP 30 ML UDC PO PRN (06:15)
--- NOTE | 2017-04-13 06:43 | History and Physical ---
History & Physical Date & Time of Service: Apr 13, 2017 at 06:21 Chief Complaint: Abdominal Pain Primary Care Physician: RV. Pond MD History of Present Illness Source: patient, family 76 y/o M, CAD, diastolic CHF, CKD 2-3, chronic A flutter, DM2, morbid obesity, COPD Pt presents with acute central CP accompanied by SOB. Denies radiation of pain , N/V, diaphoresis. Initial CXR and labs consistent with CHF exacerbation. Incidental + UA. Pt admitted with similar symptoms 1 mo prior. Past Medical/Surgical History Medical Problems: (1) Alzheimers disease Status: Chronic (2) Anxiety Status: Chronic (3) Asthma Status: Chronic (4) Atrial fibrillation Status: Chronic (5) CAD (coronary artery disease) Status: Chronic (6) CHF (congestive heart failure) - diastolic EF 55% recent echo - moderate MS, moderate Status: Chronic (7) CHF (congestive heart failure) Status: Chronic (8) Cholelithiasis Status: Resolved (9) Colon cancer Status: Resolved (10) COPD (chronic obstructive pulmonary disease) Status: Chronic (11) Depression Status: Chronic (12) Diab Mckenna Wo Compl, Type Ii Or Unspec Type, Not Uncntrld Status: Chronic (13) DM (diabetes mellitus) Status: Chronic (14) DVT (deep venous thrombosis) Status: Resolved (15) Emphysema Status: Chronic (16) Hypertension Nos Status: Chronic (17) KS (myocardial infarction) Status: Resolved (18) Mild sleep apnea Status: Chronic (19) Peripheral neuropathy Status: Chronic (20) Pure Hypercholesterolem Status: Chronic Surgical Problems: (1) H/O hemicolectomy Status: Resolved (2) History of coronary artery stent placement Status: Resolved (3) Hx of CABG Status: Resolved Family History Diabetes mellitus Heart disease Hypertension Social History Smoking Status: Never Smoker Drug Use: none Marital Status: Housing status: lives with family Occupational Status: retired Immunizations History of Influenza Vaccine: Yes Influenza Vaccine Date: Jun 12, 2010 History of Tetanus Vaccine?: Yes History of Pneumococcal: Yes History of Hepatitis B Vaccine: Unknown Multi-Drug Resistant Organisms History of MDRO: No Allergies Coded Allergies: Codeine (Verified Adverse Reaction, Intermediate, EMESIS, 04/13/17) Iodinated Diagnostic Agents (Verified Adverse Reaction, Mild, NAUSEA, ) Home Medications Scheduled Aspirin (Aspirin Ec), 81 MG PO DAILY Atorvastatin (Lipitor), 40 MG PO HS Finasteride (Proscar), 5 MG PO QAM Fluticasone Prop/Salmeterol (Advair Diskus 250/50 60 Dose), 1 PUFF INH BID Furosemide (Lasix), 40 MG PO QAM Insulin Aspart (Novolog Flexpen), 8 UNITS SC QDD Insulin Glargine (Toujeo Solostar), 26 UNIT INJ QPM Ipratropium-Albuterol (Combivent Respimat), 1 PUFFS INH BID Isosorbide Mononitrate (Isosorbide Mononitrate ER), 60 MG PO QAM Magnesium Oxide (Mg Supplement (Magnesium Oxide), 400 MG PO BID Memantine (Namenda), 10 MG PO BID Nitrofurantoin Macrocrystals (Macrodantin), 50 MG PO HS Potassium Chloride (Potassium Chloride Er), 10 MEQ PO QAM Ranitidine Hcl (Zantac), 300 MG PO QPM Sertraline (Zoloft), 50 MG PO QPM Tamsulosin Hcl (Flomax), 0.8 MG PO QPM Warfarin Sod (Coumadin), 10 MG PO 2XWK Warfarin Sodium (Coumadin), 12 MG PO 5XWK Scheduled PRN Nitroglycerin (Nitroglycerin Lingual), 1 DOSE PO DIRECTED PRN for Chest Pain Review of Systems Constitutional: + weakness, No fever, No chills, No sweats Eyes: No worsening of vision, No eye pain ENT: No hearing loss, No unusual epistaxis, No nasal symptoms Respiratory: + shortness of breath, + dyspnea on exertion, + dyspnea at rest, No cough, No sputum, No wheezing Cardiovascular: + chest pain, No orthopnea, No PND, No edema Abdomen: No pain, No nausea, No vomiting Musculoskeletal: No joint pain Genitourinary - Male: No hematuria, No dysuria Neurologic: + weakness, No memory loss, No paralysis Psychiatric: No depression symptoms Endocrine: No fatigue Hematologic / Lymphatic: No abnormal bleeding/bruising Integumentary: No rash Allergic / Immunologic: No environmental allergies Physical Exam Vital Signs Date Time Temp Pulse Resp B/P (MAP) Pulse Ox O2 Delivery O2 Flow Rate FiO2 04/13/17 05:31 58 20 127/81 96 Nasal Cannula 2.0 8/2/17 05:05 97 Nasal Cannula 2.0 04/13/17 05:01 63 23 129/78 88 Room Air 04/13/17 04:31 63 23 119/77 92 Room Air 04/13/17 04:01 61 24 133/76 93 Room Air 04/13/17 03:31 64 24 136/75 94 Room Air 04/13/17 03:09 Room Air 04/13/17 03:09 36.6 74 22 158/89 94 Room Air 04/13/17 03:00 60 General Appearance: WD/WN, no apparent distress Head: normocephalic, atraumatic Eyes: normal inspection, EOMI ENT: pharynx normal Neck: supple, + pertinent finding (exam limited by habitus) Respiratory/Chest: chest non-tender, lungs clear, normal breath sounds Cardiovascular: no gallop, + systolic murmur, + irregularly irregular, + pertinent finding (faint heart sounds) Abdomen/GI: normal bowel sounds, non tender, soft Genitourinary - Male: normal male genitalia, normal phallus Back: normal inspection, no CVA tenderness Extremities/Musculoskelatal: no calf tenderness, + pedal edema 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, no motor/sensory deficits, alert Skin: normal color, warm/dry Diagnostics Laboratory Results Results Past 24 Hours Test 04/13/17 02:23 04/13/17 04:20 Range/Units White Blood Count 8.68 4.8-10.8 K/uL Red Blood Count 4.88 4.7-6.1 M/uL Hemoglobin 15.0 14.0-18.0 g/dL Hematocrit 42.6 42-52 % Mean Corpuscular Volume 87.3 80-100 fL Mean Corpuscular Hemoglobin 30.7 25-34 pg Mean Corpuscular Hemoglobin Concent 35.2 32-36 g/dl Platelet Count 198 130-400 K/uL Mean Platelet Volume 10.3 7.4-10.4 fL Neutrophils (%) (Auto) 57.8 % Lymphocytes (%) (Auto) 31.6 % Monocytes (%) (Auto) 7.3 % Eosinophils (%) (Auto) 2.4 % Basophils (%) (Auto) 0.7 % Neutrophils # (Auto) 5.02 1.4-6.5 K/uL Lymphocytes # (Auto) 2.74 1.2-3.4 K/uL Monocytes # (Auto) 0.63 0.11-0.59 K/uL Eosinophils # (Auto) 0.21 0-0.5 K/uL Basophils # (Auto) 0.06 0-0.2 K/uL RDW Standard Deviation 44.3 36.4-46.3 fL RDW Coefficient of Variation 13.8 11.5-14.5 % Immature Granulocyte % (Auto) 0.2 % Immature Granulocyte # (Auto) 0.02 0.00-0.02 K/uL Prothrombin Time 18.0 9.0-12.0 SECONDS Prothromb Time International Ratio 1.6 0.9-1.1 Activated Partial Thromboplast Time 32.5 21.0-31.0 SECONDS Partial Thromboplastin Ratio 1.3 Sodium Level 135 136-145 mmol/L Potassium Level 4.2 3.5-5.1 mmol/L Chloride Level 101 98-107 mmol/L Carbon Dioxide Level 27 21-32 mmol/L Anion Gap 7.0 3-11 mmol/L Blood Urea Nitrogen 36 7-18 mg/dl Creatinine 1.70 0.60-1.40 mg/dl Est Creatinine Clear Calc Drug Dose 49.0 ml/min Estimated GFR () 44.1 Estimated GFR (Non- 38.1 BUN/Creatinine Ratio 21.2 10-20 Random Glucose 298 70-99 mg/dl Calcium Level 8.5 8.5-10.1 mg/dl Total Bilirubin 0.5 0.2-1 mg/dl Aspartate Amino Transf (AST/SGOT) 20 15-37 U/L Alanine Aminotransferase (ALT/SGPT) 24 12-78 U/L Alkaline Phosphatase 95 45-117 U/L Total Creatine Kinase 47 39-308 U/L Creatine Kinase MB 1.2 0.5-3.6 ng/ml Creatine Kinase MB Ratio 2.6 0-3.0 Troponin I 0.021 0-0.045 ng/ml Pro-B-Type Natriuretic Peptide 2533 0-1800 pg/ml Total Protein 7.5 6.4-8.2 gm/dl Albumin 3.4 3.4-5.0 gm/dl Globulin 4.1 2.5-4.0 gm/dl Albumin/Globulin Ratio 0.8 0.9-2 Urine Color YELLOW Urine Appearance TURBID CLEAR Urine pH 5.0 4.5-7.5 Urine Specific [place] 1.016 1.000-1.030 Urine Protein 1+ NEG Urine Glucose (UA) 2+ NEG Urine Ketones NEG NEG Urine Occult Blood 2+ NEG Urine Nitrite POS NEG Urine Bilirubin NEG NEG Urine Urobilinogen NEG NEG Urine Leukocyte Esterase LARGE NEG Urine WBC (Auto) >30 0-5 /hpf Urine RBC (Auto) 10-30 0-4 /hpf Urine Hyaline Casts (Auto) 1-5 0-5 /lpf Urine Epithelial Cells (Auto) >30 0-5 /lpf Urine Bacteria (Auto) 4+ NEG Urine Pathogenic Casts 0 /lpf Urine Yeast (Auto) NONE PRSENT Microbiology Results 04/13/17 Urine Culture, Received Pending Diagnostic Radiology Vascular congestion EKG A flutter/AF - no evidence of acute ischemia Impression Assessment and Plan 76 y/o M, CAD, diastolic CHF, CKD 2-3, chronic A flutter, DM2, morbid obesity, COPD Pt presents with acute central CP accompanied by SOB. Denies radiation of pain , N/V, diaphoresis. Initial CXR and labs consistent with CHF exacerbation. Incidental + UA. Pt admitted with similar symptoms 1 mo prior. 1) CP - will monitor on telemetry, obtain serial enzymes, treat with NTG and/or morphine PRN. Consult cardio if trop trends upward. Cont ASA, Imdur, Statin. 2) CHF - acute on chronic diastolic - provided with additional Lasix - states he feels improved at time of admission - I/Os, daily weights, cont Lasix at scheduled dose with additional PRN. 3) AF/flutter - does not require rate control normally - cont Coumadin - given higher dose today due to subtherapeutic INR 4) DM - placed on SS 5) CKD 3 - creat approximately at baseline 6) COPD - no acute exacerbation - cont inhalers as prescribed 7) UTI - Was taking Nitrofurantoin - placed on Ceftriaxone pending cultures Full code - Coumadin prophylaxis Total time for this admit including review of labs, meds, EKG, imaging - discussion with pt and ER attending - 42 min Level of Care Telemetry Resuscitation Status FULL RESUSCITATION VTE Prophylaxis VTE Risk Assessment Done? Y/N: Yes Risk Level: Moderate Given or contraindicated: Warfarin (Coumadin)
[2017-04-13] MEDS ORDERED: IV FLUIDS COMPLETED PRN (06:45)
--- NOTE | 2017-04-13 07:17 | DIAGNOSTIC IMAGING REPORT ---
CHEST ONE VIEW PORTABLE HISTORY: Atypical chest pain. Short of breath. COMPARISON: Chest 12/23/2016. FINDINGS: Poststernotomy changes. The cardiac silhouette remains enlarged. This is unchanged. No pneumothorax. No pleural effusions. Bibasilar linear densities, unchanged. This favors subsegmental atelectasis. The upper lung zones are clear. No evidence for pulmonary edema. IMPRESSION: Stable cardiomegaly. Bibasilar linear densities favor subsegmental atelectasis. This is also unchanged. Electronically signed by: Jeramie Jacobs M.D. 04/13/2017 7:15 AM Dictated Date/Time: 04/13/2017 7:14 AM
[2017-04-13] MEDS ORDERED: FUROSEMIDE INJ 20 MG in SYRINGE 0 ML IV SCH (08:00)
[2017-04-13] MEDS: CEFTRIAXONE SOD INJ 1 GM in DEXTROSE 5% ADD-VANTAGE 50ML 50 ML IV SCH (09:00)
[2017-04-13] MEDS: NITROGLYCERIN OINT 2% 1GM PACKET EXT SCH ×3 (09:01→20:22)
[2017-04-13] MEDS: FLUTICASONE/SALMETEROL 250/50 (ADVAIR) 14 PUFF/1 INHALER INH SCH ×2 (09:01→20:22)
[2017-04-13] MEDS: ASPIRIN 81 MG ECTAB PO SCH (09:01)
[2017-04-13] MEDS: FUROSEMIDE 40 MG TAB PO SCH (09:02)
[2017-04-13] MEDS: MEMANTINE 10 MG TAB PO SCH ×2 (09:02→20:49)
[2017-04-13] MEDS: FINASTERIDE 5 MG TAB PO SCH (09:02)
[2017-04-13] MEDS: ISOSORBIDE MONONITRATE 60 MG TABCR PO SCH (09:02)
[2017-04-13] MEDS: INSULIN ASPART 100 UNITS/ML 3 ML PEN SC SCH ×4 (09:14→20:28)
[2017-04-13] MEDS ORDERED: NURSING VERBAL MED ORDER ONE (12:15)
[2017-04-13] MEDS ORDERED: INSULIN GLARGINE SOLOSTAR 100 UNITS/ML 3 ML PEN SC ONE (13:30)
--- NOTE | 2017-04-13 15:12 | Progress Note ---
Subjective Date of Service: Apr 13, 2017. Subjective Pt evaluation today including: conversation w/ patient, physical exam, chart review, lab review, review of studies, conversation w/ law firm consultant, review of inpatient medication list Tired, sleeping, but awake and alert and orientated, answer questions, denied chest pain, nurse reported blood glucose monos 300 and this morning, got 1 dose Lantus 30 unit Problem List Medical Problems: (1) Acute kidney injury Status: Acute (2) Catheter-associated urinary tract infection Status: Acute (3) CHF (congestive heart failure) Status: Acute (4) Hyperglycemia Status: Acute (5) Left hand pain Status: Acute (6) Precordial chest pain Status: Acute (7) Precordial chest pain Status: Acute (8) Substernal chest pain Status: Acute (9) Symptoms involving urinary system Status: Acute (10) Urinary retention Status: Acute (11) UTI (urinary tract infection) Status: Acute (12) UTI (urinary tract infection) Status: Acute Review of Systems Constitutional: No fever, No chills, No sweats, No weight loss, No weakness, No fatigue, No problem reported Eyes: No worsening of vision, No eye pain, No redness, No discharge, No diplopia ENT: No hearing loss, No unusual epistaxis, No nasal symptoms, No sore throat, No tinnitus, No dental problems, No trouble swallowing Respiratory: + shortness of breath, No cough, No sputum, No wheezing, No dyspnea on exertion, No dyspnea at rest, No hemoptysis Cardiac: No chest pain, No orthopnea, No PND, No edema, No claudication, No palpitations Abdomen: No pain, No nausea, No vomiting, No diarrhea, No constipation Musculoskeletal: No joint pain, No muscle pain, No swelling, No calf pain Male : No dysuria, No urinary frequency, No incontinence, No nocturia more than once/night, No slowing stream, No hematuria Neurologic: No memory loss, No paralysis, No weakness, No numbness/tingling, No vertigo, No balance problems Psychiatric: No depression symptoms, No anhedonism, No anxiety, No insomnia, No substance abuse Heme: No abnormal bleeding/bruising, No clotting problems, No swollen lymph nodes, No night sweats Endo: No fatigue, No excessive thirst, No excessive urination Skin: No rash, No itch, No new/changing skin lesions, No color change, No bleeding Objective Vital Signs Date Time Temp Pulse Resp B/P (MAP) Pulse Ox O2 Delivery O2 Flow Rate FiO2 04/13/17 12:04 36.6 63 18 105/62 (76) 97 Nasal Cannula 2.0 04/13/17 12:00 Room Air 04/13/17 08:00 Room Air 04/13/17 07:37 36.4 55 16 138/74 97 Room Air 04/13/17 06:44 61 19 132/83 97 04/13/17 06:32 61 19 132/83 97 Nasal Cannula 2.0 04/13/17 06:05 58 04/13/17 06:01 53 21 130/78 98 Nasal Cannula 2.0 04/13/17 05:31 58 20 127/81 96 Nasal Cannula 2.0 04/13/17 05:05 97 Nasal Cannula 2.0 04/13/17 05:01 63 23 129/78 88 Room Air 04/13/17 04:31 63 23 119/77 92 Room Air 04/13/17 04:01 61 24 133/76 93 Room Air 04/13/17 03:31 64 24 136/75 94 Room Air 04/13/17 03:09 Room Air 04/13/17 03:09 36.6 74 22 158/89 94 Room Air 04/13/17 03:00 60 Physical Exam General Appearance: WD/WN, no apparent distress, + obese Eyes: normal inspection, PERRL, EOMI, sclerae normal ENT: normal ENT inspection, hearing grossly normal, pharynx normal Neck: supple, no adenopathy, thyroid normal, no JVD, no carotid bruits, trachea midline Respiratory/Chest: chest non-tender, lungs clear, normal breath sounds, no respiratory distress, no accessory muscle use Cardiovascular: regular rate, rhythm, no edema, no gallop, no JVD, no murmur Abdomen: normal bowel sounds, non tender, soft, no organomegaly, no pulsatile mass Extremities: normal range of motion, non-tender, normal inspection, no pedal edema, no calf tenderness, normal capillary refill, pelvis stable 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, no motor/sensory deficits, alert, normal mood/affect, oriented x 3 Skin: normal color, warm/dry, no rash Lymphatic: no adenopathy Laboratory Results Last 24 Hours Test 04/13/17 02:23 04/13/17 04:20 04/13/17 08:02 04/13/17 09:00 White Blood Count 8.68 K/uL Red Blood Count 4.88 M/uL Hemoglobin 15.0 g/dL Hematocrit 42.6 % Mean Corpuscular Volume 87.3 fL Mean Corpuscular Hemoglobin 30.7 pg Mean Corpuscular Hemoglobin Concent 35.2 g/dl Platelet Count 198 K/uL Mean Platelet Volume 10.3 fL Neutrophils (%) (Auto) 57.8 % Lymphocytes (%) (Auto) 31.6 % Monocytes (%) (Auto) 7.3 % Eosinophils (%) (Auto) 2.4 % Basophils (%) (Auto) 0.7 % Neutrophils # (Auto) 5.02 K/uL Lymphocytes # (Auto) 2.74 K/uL Monocytes # (Auto) 0.63 K/uL Eosinophils # (Auto) 0.21 K/uL Basophils # (Auto) 0.06 K/uL RDW Standard Deviation 44.3 fL RDW Coefficient of Variation 13.8 % Immature Granulocyte % (Auto) 0.2 % Immature Granulocyte # (Auto) 0.02 K/uL Prothrombin Time 18.0 SECONDS Prothromb Time International Ratio 1.6 Activated Partial Thromboplast Time 32.5 SECONDS Partial Thromboplastin Ratio 1.3 Sodium Level 135 mmol/L Potassium Level 4.2 mmol/L Chloride Level 101 mmol/L Carbon Dioxide Level 27 mmol/L Anion Gap 7.0 mmol/L Blood Urea Nitrogen 36 mg/dl Creatinine 1.70 mg/dl Est Creatinine Clear Calc Drug Dose 49.0 ml/min Estimated GFR () 44.1 Estimated GFR (Non- 38.1 BUN/Creatinine Ratio 21.2 Random Glucose 298 mg/dl Calcium Level 8.5 mg/dl Total Bilirubin 0.5 mg/dl Aspartate Amino Transf (AST/SGOT) 20 U/L Alanine Aminotransferase (ALT/SGPT) 24 U/L Alkaline Phosphatase 95 U/L Total Creatine Kinase 47 U/L Creatine Kinase MB 1.2 ng/ml Creatine Kinase MB Ratio 2.6 Troponin I 0.021 ng/ml 0.016 ng/ml Pro-B-Type Natriuretic Peptide 2533 pg/ml Total Protein 7.5 gm/dl Albumin 3.4 gm/dl Globulin 4.1 gm/dl Albumin/Globulin Ratio 0.8 Urine Color YELLOW Urine Appearance TURBID Urine pH 5.0 Urine Specific [place] 1.016 Urine Protein 1+ Urine Glucose (UA) 2+ Urine Ketones NEG Urine Occult Blood 2+ Urine Nitrite POS Urine Bilirubin NEG Urine Urobilinogen NEG Urine Leukocyte Esterase LARGE Urine WBC (Auto) >30 /hpf Urine RBC (Auto) 10-30 /hpf Urine Hyaline Casts (Auto) 1-5 /lpf Urine Epithelial Cells (Auto) >30 /lpf Urine Bacteria (Auto) 4+ Urine Pathogenic Casts /lpf Urine Yeast (Auto) Bedside Glucose 360 mg/dl Test 04/13/17 11:20 04/13/17 13:55 Bedside Glucose 311 mg/dl Troponin I 0.017 ng/ml Assessment and Plan 76 y/o M, admitted b/c acute central CP accompanied by SOB. hx of CAD, diastolic CHF, CKD 2-3, chronic A flutter, DM2, morbid obesity, COPD Per report Initial CXR and labs consistent with CHF exacerbation. Incidental + UA. CP , no more chest pain, cardiac enzyme troponin 3 sets were negative, - continue treat with NTG and/or morphine PRN. Consult cardio if trop trends upward. Cont ASA, Imdur, Statin. CHF - acute on chronic diastolic provided with additional Lasix - states he feels improved at time of admission - I/Os, daily weights, cont Lasix at scheduled dose with additional PRN. History of AF/flutter - does not require rate control normally cont Coumadin - given higher dose today due to subtherapeutic INR, we'll follow- up Uncontrolled diabetic DM restart Lantus, and cont on SS CKD 3 - creat approximately at baseline COPD - no acute exacerbation - cont inhalers as prescribed UTI - Was taking Nitrofurantoin - placed on Ceftriaxone pending cultures continue follow-up Full code - Coumadin prophylaxis Continued [facility] stay due to: multiple IV medications needed Discharge planning: home
[2017-04-13] MEDS: WARFARIN SOD 6 MG TAB PO SCH (16:43)
[2017-04-13] MEDS: SERTRALINE HCL 50 MG TAB PO SCH (20:23)
[2017-04-13] MEDS: ATORVASTATIN 40 MG TAB PO SCH (20:23)
[2017-04-13] MEDS: TAMSULOSIN HCL 0.4 MG CAP PO SCH (20:23)
[2017-04-13] MEDS: RANITIDINE HCL 150 MG TAB PO SCH (20:24)
[2017-04-13] MEDS: INSULIN GLARGINE SOLOSTAR 100 UNITS/ML 3 ML PEN SC SCH (20:29)
[2017-04-13] MEDS ORDERED: INSULIN GLARGINE SOLOSTAR 100 UNITS/ML 3 ML PEN SC SCH (21:00)
[2017-04-14] VITALS (8 sets, daily range): BP systolic 104–122; BP diastolic 59–78; PULSE 72–94; TEMP 36.5–36.8; O2SAT 94–96; Ht 180.3 cm; Wt 123.1 kg
[2017-04-14] MEDS: NITROGLYCERIN OINT 2% 1GM PACKET EXT SCH ×4 (02:23→20:52)
[2017-04-14 05:55] LABS: BASO % 0.3 %; BASO ABS # 0.03 K/uL (0-0.2); COMPLETE YES; EOS % 2.5 %; HEMATOCRIT 40.8 % (42-52); IG% 0.2 %; LYMPH % 31.9 %; LYMPH ABS # 2.98 K/uL (1.2-3.4); MEAN CELL VOLUME 87.2 fL (80-100); MEAN CORPUSCULAR HEMOGLOBIN 29.5 pg (25-34); MEAN CORPUSCULAR HGB CONC 33.8 g/dl (32-36); MONO % 6.5 %; NEUT % 58.6 %; PLATELET COUNT 189 K/uL (130-400); RED BLOOD COUNT 4.68 M/uL (4.7-6.1); WHITE BLOOD COUNT 9.33 K/uL (4.8-10.8)
[2017-04-14 06:11] LABS: ESTIMATED AVERAGE GLUCOSE 272 mg/dl; HA1C FLAG Normal (Normal)
[2017-04-14 06:32] LABS: BUN/CREATININE RATIO 21.8 (10-20); CALCIUM 8.5 mg/dl (8.5-10.1); CREATININE 1.7 mg/dl (0.60-1.40); MAGNESIUM 1.9 mg/dl (1.8-2.4); POTASSIUM 4.2 mmol/L (3.5-5.1)
[2017-04-14 06:43] LABS: THYROID STIMULATING HORMONE 1.07 uIu/ml (0.300-4.500)
[2017-04-14] MEDS: CEFTRIAXONE SOD INJ 1 GM in DEXTROSE 5% ADD-VANTAGE 50ML 50 ML IV SCH (07:51)
[2017-04-14] MEDS: FLUTICASONE/SALMETEROL 250/50 (ADVAIR) 14 PUFF/1 INHALER INH SCH ×2 (07:51→20:52)
[2017-04-14] MEDS: FINASTERIDE 5 MG TAB PO SCH (07:51)
[2017-04-14] MEDS: ISOSORBIDE MONONITRATE 60 MG TABCR PO SCH (07:52)
[2017-04-14] MEDS: FUROSEMIDE 40 MG TAB PO SCH (07:52)
[2017-04-14] MEDS: ASPIRIN 81 MG ECTAB PO SCH (07:52)
[2017-04-14] MEDS: INSULIN ASPART 100 UNITS/ML 3 ML PEN SC SCH ×4 (07:58→20:53)
[2017-04-14] MEDS: MEMANTINE 10 MG TAB PO SCH ×2 (08:19→21:05)
--- NOTE | 2017-04-14 15:21 | Progress Note ---
Subjective Date of Service: Apr 14, 2017. Subjective Pt evaluation today including: conversation w/ patient, conversation w/ family , physical exam, chart review, lab review, review of studies, conversation w/ product consultant, review of inpatient medication list Still complaining generalized weakness, however is better Taper off NC O2 Able to do straight cath by self when in hospital No other complaint Problem List Medical Problems: (1) Acute kidney injury Status: Acute (2) Catheter-associated urinary tract infection Status: Acute (3) CHF (congestive heart failure) Status: Acute (4) Hyperglycemia Status: Acute (5) Left hand pain Status: Acute (6) Precordial chest pain Status: Acute (7) Precordial chest pain Status: Acute (8) Substernal chest pain Status: Acute (9) Symptoms involving urinary system Status: Acute (10) Urinary retention Status: Acute (11) UTI (urinary tract infection) Status: Acute (12) UTI (urinary tract infection) Status: Acute Review of Systems Constitutional: + weakness, + fatigue, No fever, No chills, No sweats, No problem reported Eyes: No worsening of vision, No eye pain, No redness, No discharge, No diplopia ENT: No hearing loss, No unusual epistaxis, No nasal symptoms, No sore throat, No tinnitus, No dental problems, No trouble swallowing Respiratory: No cough, No sputum, No wheezing, No shortness of breath, No dyspnea on exertion, No dyspnea at rest, No hemoptysis Cardiac: No chest pain, No orthopnea, No PND, No edema, No claudication, No palpitations Abdomen: No pain, No nausea, No vomiting, No diarrhea, No constipation Musculoskeletal: No joint pain, No muscle pain, No swelling, No calf pain Male : No dysuria, No urinary frequency, No incontinence, No nocturia more than once/night, No slowing stream, No hematuria Neurologic: No memory loss, No paralysis, No weakness, No numbness/tingling, No vertigo, No balance problems Psychiatric: No depression symptoms, No anhedonism, No anxiety, No insomnia, No substance abuse Heme: No abnormal bleeding/bruising, No clotting problems, No swollen lymph nodes, No night sweats Endo: No fatigue, No excessive thirst, No excessive urination Skin: No rash, No itch, No new/changing skin lesions, No color change, No bleeding Objective Vital Signs Date Time Temp Pulse Resp B/P (MAP) Pulse Ox O2 Delivery O2 Flow Rate FiO2 04/14/17 12:15 36.5 94 19 104/78 (87) 95 Room Air 04/14/17 12:00 Room Air 04/14/17 08:40 96 04/14/17 08:00 36.5 81 19 122/74 (90) 95 Nasal Cannula 2.0 04/14/17 08:00 Room Air 04/14/17 04:00 Room Air 04/14/17 03:50 36.5 72 18 106/61 (76) 96 Nasal Cannula 2.0 04/14/17 00:00 Room Air 04/13/17 23:59 36.5 70 20 121/80 (94) 97 Nasal Cannula 2.0 04/13/17 20:00 98 Nasal Cannula 2.0 04/13/17 19:31 36.7 71 22 111/55 (73) 98 Nasal Cannula 2.0 04/13/17 16:00 97 Nasal Cannula 2.0 04/13/17 15:53 36.5 62 22 107/53 (71) 97 Nasal Cannula 2.0 Physical Exam General Appearance: WD/WN, no apparent distress, + obese, + pertinent finding ( chronic ill-looking frail) Eyes: normal inspection, PERRL, EOMI, sclerae normal ENT: normal ENT inspection, hearing grossly normal, pharynx normal Neck: supple, no adenopathy, thyroid normal, no JVD, no carotid bruits, trachea midline Respiratory/Chest: chest non-tender, normal breath sounds, no respiratory distress, no accessory muscle use, + decreased breath sounds Cardiovascular: regular rate, rhythm, no edema, no gallop, no JVD, no murmur Abdomen: normal bowel sounds, non tender, soft, no organomegaly, no pulsatile mass Extremities: normal range of motion, non-tender, normal inspection, no pedal edema, no calf tenderness, normal capillary refill, pelvis stable 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, no motor/sensory deficits, alert, normal mood/affect, oriented x 3 Skin: normal color, warm/dry, no rash Lymphatic: no adenopathy Laboratory Results Last 24 Hours Test 04/13/17 16:22 04/13/17 20:16 04/14/17 05:24 04/14/17 06:18 Bedside Glucose 330 mg/dl 319 mg/dl 195 mg/dl White Blood Count 9.33 K/uL Red Blood Count 4.68 M/uL Hemoglobin 13.8 g/dL Hematocrit 40.8 % Mean Corpuscular Volume 87.2 fL Mean Corpuscular Hemoglobin 29.5 pg Mean Corpuscular Hemoglobin Concent 33.8 g/dl Platelet Count 189 K/uL Mean Platelet Volume 10.0 fL Neutrophils (%) (Auto) 58.6 % Lymphocytes (%) (Auto) 31.9 % Monocytes (%) (Auto) 6.5 % Eosinophils (%) (Auto) 2.5 % Basophils (%) (Auto) 0.3 % Neutrophils # (Auto) 5.46 K/uL Lymphocytes # (Auto) 2.98 K/uL Monocytes # (Auto) 0.61 K/uL Eosinophils # (Auto) 0.23 K/uL Basophils # (Auto) 0.03 K/uL RDW Standard Deviation 43.6 fL RDW Coefficient of Variation 13.8 % Immature Granulocyte % (Auto) 0.2 % Immature Granulocyte # (Auto) 0.02 K/uL Sodium Level 136 mmol/L Potassium Level 4.2 mmol/L Chloride Level 102 mmol/L Carbon Dioxide Level 29 mmol/L Anion Gap 5.0 mmol/L Blood Urea Nitrogen 37 mg/dl Creatinine 1.70 mg/dl Est Creatinine Clear Calc Drug Dose 49.0 ml/min Estimated GFR () 44.1 Estimated GFR (Non- 38.1 BUN/Creatinine Ratio 21.8 Random Glucose 191 mg/dl Estimated Average Glucose 272 mg/dl Hemoglobin A1c 11.1 % Calcium Level 8.5 mg/dl Magnesium Level 1.9 mg/dl Thyroid Stimulating Hormone (TSH) 1.070 uIu/ml Test 04/14/17 11:03 Bedside Glucose 252 mg/dl Assessment and Plan 76 y/o M, admitted b/c acute central CP accompanied by SOB on 04/13/2017 hx of CAD, diastolic CHF, CKD 2-3, chronic A flutter, DM2, morbid obesity, COPD Per report Initial CXR and labs consistent with CHF exacerbation. Incidental + UA. CP , no more chest pain, cardiac enzyme troponin 3 sets were negative, - continue treat with NTG and/or morphine PRN. - Cont ASA, Imdur, Statin. CHF - acute on chronic diastolic, improved and stable provided with additional Lasix - states he feels improved at time of admission - I/Os, daily weights, cont Lasix at scheduled dose with additional PRN. History of AF/flutter - does not require rate control normally cont Coumadin - given higher dose today due to subtherapeutic INR, we'll follow- up Uncontrolled diabetic DM restart Lantus, and cont on SS CKD 3 - creat approximately at baseline COPD - no acute exacerbation - cont inhalers as prescribed Gram-negative UTI, possible test orientated, he has neurogenic bladder need to have straight cath by herself Was taking Nitrofurantoin Continue on Ceftriaxone pending cultures continue follow-up Follow-up final urine culture and decide antibiotics Full code - Coumadin prophylaxis Continued [facility] stay due to: multiple IV medications needed Discharge planning: home
[2017-04-14] MEDS: WARFARIN SOD 6 MG TAB PO SCH (16:57)
[2017-04-14] MEDS: INSULIN GLARGINE SOLOSTAR 100 UNITS/ML 3 ML PEN SC SCH (20:55)
[2017-04-14] MEDS: TAMSULOSIN HCL 0.4 MG CAP PO SCH (21:05)
[2017-04-14] MEDS: ATORVASTATIN 40 MG TAB PO SCH (21:06)
[2017-04-14] MEDS: SERTRALINE HCL 50 MG TAB PO SCH (21:06)
[2017-04-14] MEDS: RANITIDINE HCL 150 MG TAB PO SCH (21:06)
[2017-04-15 00:13] VITALS: BP 116/64; PULSE 81; TEMP 36.6; O2SAT 96
[2017-04-15] MEDS: NITROGLYCERIN OINT 2% 1GM PACKET EXT SCH ×2 (02:21→07:33)
[2017-04-15 04:48] VITALS: BP 132/66; PULSE 63; TEMP 36.8; O2SAT 97
[2017-04-15 05:57] LABS: BASO % 0.5 %; BASO ABS # 0.04 K/uL (0-0.2); COMPLETE YES; EOS % 3.3 %; HEMATOCRIT 38.4 % (42-52); IG% 0.1 %; LYMPH % 32.7 %; LYMPH ABS # 2.41 K/uL (1.2-3.4); MEAN CELL VOLUME 86.9 fL (80-100); MEAN CORPUSCULAR HEMOGLOBIN 29.4 pg (25-34); MEAN CORPUSCULAR HGB CONC 33.9 g/dl (32-36); MEAN PLATELET VOLUME 9.7 fL (7.4-10.4); MONO % 8.3 %; NEUT % 55.1 %; PLATELET COUNT 181 K/uL (130-400); RED BLOOD COUNT 4.42 M/uL (4.7-6.1); WHITE BLOOD COUNT 7.38 K/uL (4.8-10.8)
[2017-04-15 06:28] LABS: BUN/CREATININE RATIO 20.3 (10-20); CALCIUM 8.1 mg/dl (8.5-10.1); CREATININE 1.6 mg/dl (0.60-1.40); MAGNESIUM 1.8 mg/dl (1.8-2.4); PHOSPHORUS 3.1 mg/dl (2.5-4.9); POTASSIUM 3.8 mmol/L (3.5-5.1)
[2017-04-15 07:31] VITALS: BP 114/62; PULSE 75; TEMP 36.7; O2SAT 92
[2017-04-15] MEDS: ISOSORBIDE MONONITRATE 60 MG TABCR PO SCH (07:32)
[2017-04-15] MEDS: FUROSEMIDE 40 MG TAB PO SCH (07:32)
[2017-04-15] MEDS: FINASTERIDE 5 MG TAB PO SCH (07:32)
[2017-04-15] MEDS: MEMANTINE 10 MG TAB PO SCH (07:32)
[2017-04-15] MEDS: ASPIRIN 81 MG ECTAB PO SCH (07:32)
[2017-04-15] MEDS: CEFTRIAXONE SOD INJ 1 GM in DEXTROSE 5% ADD-VANTAGE 50ML 50 ML IV SCH (07:33)
[2017-04-15] MEDS: FLUTICASONE/SALMETEROL 250/50 (ADVAIR) 14 PUFF/1 INHALER INH SCH (07:33)
[2017-04-15 07:44] LABS: INR 1.7 (0.9-1.1); PROTHROMBIN TIME (PATIENT) 18.7 SECONDS (9.0-12.0)
[2017-04-15] MEDS: INSULIN ASPART 100 UNITS/ML 3 ML PEN SC SCH ×2 (07:44→12:06)
[2017-04-15 11:46] VITALS: BP 140/86; PULSE 78; TEMP 36.6; O2SAT 97
[2017-04-15] MEDS ORDERED: CEPH-571 PO (12:14)
--- NOTE | 2017-04-15 12:14 | Discharge Instructions ---
Discharge Instructions Date of Service Apr 15, 2017. Admission Reason for Admission: Chf Exacerbation, Substernal Chest Pain Discharge Discharge Diagnosis / Problem: citrobacter UTI Discharge Goals Goal(s): Decrease discomfort, Improve function, Increase independence, Improve disease control, Improve nutritional status, Learn about illness, Diagnostic testing, Therapeutic intervention, Prevent Disease Progression, Specific goals Activity Recommendations Activity Limitations: resume your previous activity . Instructions / Follow-Up Instructions / Follow-Up you was having chest pain upon admission, no more chest pain, you have heart disease , you need to follow up with your statistical analyst in 2-3 weeks you have urinary tract infection, I am giving you antibiotics for 7 days more you are on coumadin which is subtherapeutic, you need to follow up with your pcp to adjust check INR and adjust the dose - you need to follow up with your primary care physician in 1 week, - take medication as instructed, never overdose or any misuse, or take with alcohol, because misuse of medicine may cause organ damage or , call your primary care physician if have questions of medicaitons. - call your primary care physician OR go to local emergency room if has any fever/chill, chest pain, shortness of breathing, nausea/vomiting/abdominal pain , facial droop/slurry speech/local weakness, or if has any questions. - fall precaution - diet as instructed - you need to follow up with your subspecialists - you should understand that it is important to follow up the above instruction , and "not following the above instruction" may cause delayed or missed care of your medical conditions which may cause permanent organ damage and even . Current Hospital Diet Patient's current hospital diet: AHA Diet (Heart Healthy), Diabetes Type 2 Diet Discharge Diet Recommended Diet: Diabetes Type 2 Diet Procedures Procedures Performed: no Pending Studies Studies pending at discharge: no Laboratory Results Hemoglobin A1c Test 04/14/17 05:24 Range/Units Estimated Average Glucose 272 mg/dl Hemoglobin A1c 11.1 H 4.5-5.6 % Medical Emergencies . Who to Call and When: Medical Emergencies: If at any time you feel your situation is an emergency, please call 911 immediately. . Non-Emergent Contact Non-Emergency issues call your: Primary Care Provider, Systems Technologist . . "Provider Documentation" section prepared by Prashanth Jeffers. . VTE Core Measure Inpt VTE Proph given/why not?: Warfarin (Coumadin)
[2017-04-15 12:15] VITALS: BP 140/86; PULSE 78; TEMP 36.6; O2SAT 97
[2017-04-15] MEDS ORDERED: NTRO1 EXT (12:35)
--- NOTE | 2017-04-15 16:28 | Discharge Summary ---
Discharge Summary Date of Service Apr 15, 2017. Discharge Summary Admission Date: Apr 13, 2017 at 06:13 Discharge Date: Apr 15, 2017 Discharge Disposition: Home Principal Diagnosis: urinary tract infection Problems/Secondary Diagnoses: chest pain upon admission, no more chest pain, you have urinary tract infection, Coumadin is subtherapeutic, Immunizations: Have You Had Influenza Vaccine: Yes Influenza Vaccine Date: Jun 12, 2010 History of Tetanus Vaccine?: Yes History of Pneumococcal: Yes History of Hepatitis B Vaccine: Unknown Procedures: No Consultations: No Medication Reconciliation New Medications: Cephalexin (Keflex) 500 Mg Cap 1 CAP PO BID for 7 Days, #14 CAP Nitroglycerin (Nitro-Bid) 1 Inch/Pkt Oint 1 INCH EXT Q6H for 3 Days, #10 Continued Medications: Aspirin (Aspirin Ec) 81 Mg Tab 81 MG PO DAILY Atorvastatin (Lipitor) 40 Mg Tab 40 MG PO HS, TAB Finasteride (Proscar) 5 Mg Tab 5 MG PO QAM, TAB Fluticasone Prop/Salmeterol (Advair Diskus 250/50 60 Dose) 1 Ea Aerp 1 PUFF INH BID, #60 Furosemide (Lasix) 40 Mg Tab 40 MG PO QAM Insulin Aspart (Novolog Flexpen) 100 Units/Ml Inj 8 UNITS SC QDD Insulin Glargine (Toujeo Solostar) 300 Unit/Ml Inj 26 UNIT INJ QPM Ipratropium-Albuterol (Combivent Respimat) 1 Aer Aer 1 PUFFS INH BID Isosorbide Mononitrate (Isosorbide Mononitrate ER) 60 Mg Tabcr 60 MG PO QAM, #30 Magnesium Oxide (Mg Supplement (Magnesium Oxide) 400 Mg Tab 400 MG PO BID Memantine (Namenda) 10 Mg Tab 10 MG PO BID Nitroglycerin (Nitroglycerin Lingual) 0.4 Mg/[place] Spr 1 DOSE PO DIRECTED PRN for Chest Pain Potassium Chloride (Potassium Chloride Er) 10 Meq Cap 10 MEQ PO QAM Ranitidine Hcl (Zantac) 300 Mg Tab 300 MG PO QPM, TAB Sertraline (Zoloft) 50 Mg Tab 50 MG PO QPM Tamsulosin Hcl (Flomax) 0.4 Mg Cap 0.8 MG PO QPM Warfarin Sod (Coumadin) 5 Mg Tab 10 MG PO 2XWK TAKES MON & THURS. Warfarin Sodium (Coumadin) 5 Mg Tab 12 MG PO 5XWK, TAB Discontinued Medications: Nitrofurantoin Macrocrystals (Macrodantin) 50 Mg Cap 50 MG PO HS, CAP Discharge Exam Doing well, although bed and walk, no complaining Review of Systems: Constitutional: No fever, No chills, No sweats, No weight loss, No weakness , No fatigue, No problem reported Eyes: No worsening of vision, No eye pain, No redness, No discharge, No diplopia, No problem reported ENT: No hearing loss, No unusual epistaxis, No nasal symptoms, No sore throat, No tinnitus, No dental problems, No trouble swallowing, No problem reported Respiratory: No cough, No sputum, No wheezing, No shortness of breath, No dyspnea on exertion, No dyspnea at rest, No hemoptysis, No problem reported Cardiovascular: No chest pain, No orthopnea, No PND, No edema, No claudication, No palpitations, No problem reported Abdomen: No pain, No nausea, No vomiting, No diarrhea, No constipation, No GI bleeding, No problem reported Musculoskeletal: No joint pain, No muscle pain, No swelling, No calf pain, No problem reported Genitourinary - Male: No hematuria, No dysuria, No urinary frequency, No urinary urgency, No urinary hesitancy, No urinary retention, No urinary incontinence, No penile discharge, No lesions, No impotence, No problem reported Neurologic: No memory loss, No paralysis, No weakness, No numbness/tingling , No vertigo, No balance problems, No problem reported Psychiatric: No depression symptoms, No anhedonism, No anxiety, No insomnia , No substance abuse, No problem reported Endocrine: No fatigue, No excessive thirst, No excessive urination, No problem reported Hematologic / Lymphatic: No abnormal bleeding/bruising, No clotting problems , No swollen lymph nodes, No night sweats, No problem reported Integumentary: No rash, No itch, No new/changing skin lesions, No color change, No bleeding, No problem reported Physical Exam: General Appearance: WD/WN Eyes: normal inspection, PERRL, EOMI ENT: normal ENT inspection, hearing grossly normal Neck: supple, no adenopathy Respiratory/Chest: chest non-tender, + decreased breath sounds, + pertinent finding (mid chest all has well-healing scar) Cardiovascular: regular rate, rhythm, no edema, no gallop Abdomen / GI: normal bowel sounds, non tender, soft, no organomegaly Extremities: normal inspection, no calf tenderness, normal capillary refill , no pedal edema Neurologic/Psychiatric: decision support manager II-XII nml as tested, no motor/sensory deficits , alert, normal mood/affect, normal reflexes Skin: normal color, warm/dry, no rash Hospital Course 76 y/o M, admitted b/c acute central CP accompanied by SOB on 04/13/2017 hx of CAD, diastolic CHF, CKD 2-3, chronic A flutter, DM2, morbid obesity, COPD Per report Initial CXR and labs consistent with CHF exacerbation. Incidental + UA. CP , no more chest pain, cardiac enzyme troponin 3 sets were negative, - continue treat with NTG and/or morphine PRN. - Cont ASA, Imdur, Statin., Will continue nitroglycerin patch upon discharge, follow-up with cardiology CHF - acute on chronic diastolic, improved and stable provided with additional Lasix - states he feels improved at time of admission - I/Os, daily weights, cont Lasix at scheduled dose with additional PRN. History of AF/flutter - does not require rate control normally cont Coumadin - given higher dose today due to subtherapeutic INR, we'll need to follow-up in the Coumadin clinic and Advised Uncontrolled diabetic DM restart Lantus, and cont on SS CKD 3 - creat approximately at baseline COPD - no acute exacerbation - cont inhalers as prescribed Gram-negative UTI, possible test orientated, he has neurogenic bladder need to have straight cath by herself Was taking Nitrofurantoin Continue on Ceftriaxone pending cultures continue follow-up Follow-up final urine culture and decide antibiotics Discussed with patient and about the care plan, patient will be discharged in stable condition Full code - Coumadin prophylaxis nstructions / Follow-Up you was having chest pain upon admission, no more chest pain, you have heart disease , you need to follow up with your ecology teacher in 2-3 weeks you have urinary tract infection, I am giving you antibiotics for 7 days more you are on coumadin which is subtherapeutic, you need to follow up with your pcp to adjust check INR and adjust the dose - you need to follow up with your primary care physician in 1 week, - take medication as instructed, never overdose or any misuse, or take with alcohol, because misuse of medicine may cause organ damage or , call your primary care physician if have questions of medicaitons. - call your primary care physician OR go to local emergency room if has any fever/chill, chest pain, shortness of breathing, nausea/vomiting/abdominal pain , facial droop/slurry speech/local weakness, or if has any questions. - fall precaution - diet as instructed - you need to follow up with your subspecialists - you should understand that it is important to follow up the above instruction , and "not following the above instruction" may cause delayed or missed care of your medical conditions which may cause permanent organ damage and even . Total Time Spent: Greater than 30 minutes This includes examination of the patient, discharge planning, medication reconciliation, and communication with other providers. Discharge Instructions Please refer to the electronic Patient Visit Report (Discharge Instructions) for additional information. Additional Copies To RV. Pond MD
== END 2017-04-15 13:00 | disposition home or self-care (01) ==
LOC: EDBD 02:48 → C.EDA 02:48 → C.2E 06:13 → ENRESERV 06:37
PROVIDERS: ADMIT Internal Medicine; ATTEND Hospitalist
DX: T83.511A Infection and inflammatory reaction due to indwelling urethral catheter, initial encounter (principal); I50.43 Acute on chronic combined systolic (congestive) and diastolic (congestive) heart failure; R07.2 Precordial pain; N39.0 Urinary tract infection, site not specified; G30.9 Alzheimer's disease, unspecified; F02.80 Dementia in other diseases classified elsewhere, unspecified severity, without behavioral disturbance, psychotic disturbance, mood disturbance, and anxiety; F41.9 Anxiety disorder, unspecified; J44.9 Chronic obstructive pulmonary disease, unspecified; I48.91 Unspecified atrial fibrillation; I25.10 Atherosclerotic heart disease of native coronary artery without angina pectoris; Z85.038 Personal history of other malignant neoplasm of large intestine; E11.9 Type 2 diabetes mellitus without complications; Z86.718 Personal history of other venous thrombosis and embolism; I10 Essential (primary) hypertension; E78.00 Pure hypercholesterolemia, unspecified; Z95.5 Presence of coronary angioplasty implant and graft; Z83.3 Family history of diabetes mellitus; Z82.49 Family history of ischemic heart disease and other diseases of the circulatory system; Z79.82 Long term (current) use of aspirin; Y74.1 Therapeutic (nonsurgical) and rehabilitative general hospital and personal-use devices associated with adverse incidents; E66.01 Morbid (severe) obesity due to excess calories; Z79.4 Long term (current) use of insulin; Z79.01 Long term (current) use of anticoagulants

== ENCOUNTER 2017-06-20 07:29 | Emergency (ER) | payer OTHER ==
[~2017-06-20] VITALS: Ht 188 cm; Wt 124.2 kg
[~2017-06-20 07:29] MED LIST changes: -ASPEC81 PO; +ASPI81TA28 PO; -LVNIS150 SQ; +NTRO1 EXT; +NVLGI/PEN SC; -PRT40 PO; +WARF5TAB90 PO
[2017-06-20 07:39] VITALS: TEMP 36.6; Ht 188 cm; Wt 124.2 kg
--- NOTE | 2017-06-20 07:56 | DIAGNOSTIC IMAGING REPORT ---
CHEST ONE VIEW PORTABLE CLINICAL HISTORY: Fever and sepsis COMPARISON STUDY: 04/13/2017 FINDINGS: The heart is enlarged. There are postsurgical changes of midline sternotomy. There is a right-sided dual-lumen central venous catheter. The tip remains positioned at the superior vena cava. There is no failure. There is no focal pulmonary consolidation. There are no pleural effusions.[ IMPRESSION: Stable cardiomegaly. No acute findings. Electronically signed by: Nagi Springer M.D. 06/20/2017 7:55 AM Dictated Date/Time: 06/20/2017 7:54 AM
[2017-06-20 08:23] LABS: BASO % 0.4 %; BASO ABS # 0.04 K/uL (0-0.2); COMPLETE YES; EOS % 2.6 %; HEMATOCRIT 43.1 % (42-52); IG% 0.2 %; LYMPH % 14.2 %; LYMPH ABS # 1.51 K/uL (1.2-3.4); MEAN CELL VOLUME 90.2 fL (80-100); MEAN CORPUSCULAR HEMOGLOBIN 30.5 pg (25-34); MEAN CORPUSCULAR HGB CONC 33.9 g/dl (32-36); MEAN PLATELET VOLUME 10.1 fL (7.4-10.4); NEUT % 75.6 %; PLATELET COUNT 185 K/uL (130-400); RED BLOOD COUNT 4.78 M/uL (4.7-6.1)
[2017-06-20 08:30] LABS: INR 2.3 (0.9-1.1); PARTIAL THROMBOPLASTIN RATIO 1.5; PROTHROMBIN TIME (PATIENT) 25.1 SECONDS (9.0-12.0)
[2017-06-20 08:49] LABS: BUN/CREATININE RATIO 14.3 (10-20); CALCIUM 8.7 mg/dl (8.5-10.1); CREATININE 1.6 mg/dl (0.60-1.40); POTASSIUM 4.2 mmol/L (3.5-5.1)
[2017-06-20 08:54] LABS: CKMB/CK RATIO 2.3 (0-3.0)
[2017-06-20] MEDS ORDERED: RANI300T2 PO (08:54)
[2017-06-20] MEDS ORDERED: ISOS60TA25 PO (08:54)
[2017-06-20] MEDS ORDERED: IPRA1AER2 INH (08:54)
[2017-06-20] MEDS ORDERED: NMN10 PO (08:54)
[2017-06-20] MEDS ORDERED: WARF6TAB5 PO (08:54)
[2017-06-20] MEDS ORDERED: ADVIN25/60 INH (08:54)
[2017-06-20] MEDS ORDERED: FRS/40 PO (08:54)
[2017-06-20] MEDS ORDERED: NVLGI/PEN SC ×3 (08:54)
[2017-06-20] MEDS ORDERED: ZLF/50 PO (08:54)
[2017-06-20] MEDS ORDERED: WARF10TA4 PO (08:54)
[2017-06-20] MEDS ORDERED: INSU1.2I SC (08:54)
[2017-06-20] MEDS ORDERED: FINA5TAB PO (08:54)
[2017-06-20] MEDS ORDERED: TAMS0.4C38 PO (08:54)
[2017-06-20] MEDS ORDERED: MCR/50 PO (08:54)
[2017-06-20] MEDS ORDERED: ASPI81TA28 PO (08:54)
[2017-06-20] MEDS ORDERED: ATOR-24 PO (08:54)
[2017-06-20] MEDS ORDERED: LPR25 PO (08:54)
[2017-06-20 10:09] VITALS: BP 130/86; PULSE 60; O2SAT 97
--- NOTE | 2017-06-20 10:22 | EMERGENCY ROOM VISIT NOTE ---
History Report prepared by Ketanibjeromy: Bryson Stone Under the Supervision of: Dr. Dao Brown D.O. First contact with patient: 07:35 Stated Complaint: CHEST PAIN/SOB History of Present Illness The patient is a 77 year old male who presents to the Emergency Room with complaints of persistent shortness of breath beginning today. He states "I just don't feel good". He is on blood thinners. The patient also complains of chest pain. He denies any vomiting. Source of History: patient Onset: Today Quality: other (shortness of breath) Timing: other (persistent) Associated Symptoms: + chest pain, No vomiting Review of Systems See HPI for pertinent positives & negatives. A total of 10 systems reviewed and were otherwise negative. Past Medical & Surgical Medical Problems: (1) Alzheimers disease (2) Anxiety (3) Asthma (4) Atrial fibrillation (5) CAD (coronary artery disease) (6) Chest pain (7) CHF (congestive heart failure) (8) CHF (congestive heart failure) (9) CHF exacerbation (10) Cholelithiasis (11) Colon cancer (12) COPD (chronic obstructive pulmonary disease) (13) Depression (14) Diab Mckenna Wo Compl, Type Ii Or Unspec Type, Not Uncntrld (15) DM (diabetes mellitus) (16) DVT (deep venous thrombosis) (17) Emphysema (18) Gross hematuria (19) Hypertension Nos (20) CT (myocardial infarction) (21) Mild sleep apnea (22) Peripheral neuropathy (23) Pure Hypercholesterolem (24) Shortness of breath Surgical Problems: (1) H/O hemicolectomy (2) History of coronary artery stent placement (3) Hx of CABG Family History Diabetes mellitus Heart disease Hypertension Social History Smoking Status: Current Every Day Smoker Alcohol Use: occasionally Drug Use: none Marital Status: Housing Status: lives with significant other Occupation Status: retired Current/Historical Medications Scheduled Aspirin (Aspirin Ec), 81 MG PO DAILY Atorvastatin (Lipitor), 40 MG PO HS Finasteride (Proscar), 5 MG PO DAILY Fluticasone Prop/Salmeterol (Advair Diskus 250/50 60 Dose), 1 PUFF INH BID Furosemide (Lasix), 40 MG PO DAILY Insulin Aspart (Novolog Flexpen), 5 UNITS SC QAM Insulin Aspart (Novolog Flexpen), 5 UNITS SC NOON Insulin Aspart (Novolog Flexpen), 7 UNITS SC QPM Insulin Glargine (Toujeo Solostar), 30 UNITS SC QPM Ipratropium-Albuterol (Combivent Respimat), 2 PUFFS INH QID Isosorbide Mononitrate Ext Rel (Imdur Ext Rel), 60 MG PO DAILY Memantine (Namenda), 10 MG PO AMPM Metoprolol Tartrate (Lopressor), 25 MG PO AMPM Nitrofurantoin Macrocrystals (Nitrofurantoin Macrocryst), 50 MG PO QPM Ranitidine Hcl (Zantac), 300 MG PO HS Sertraline HCl (Sertraline HCl), 50 MG PO DAILY Tamsulosin Hcl (Flomax), 0.8 MG PO QPM Warfarin Sod (Jantoven), 12 MG PO 6XWK Warfarin Sod (Jantoven), 10 MG PO WK Scheduled PRN Nitroglycerin (Nitroglycerin Lingual), 1 DOSE PO DIRECTED PRN for Chest Pain Allergies Coded Allergies: Codeine (Verified Adverse Reaction, Intermediate, EMESIS, 06/20/17) Iodinated Diagnostic Agents (Verified Adverse Reaction, Mild, NAUSEA, 06/20) Physical Exam Vital Signs Date Time Temp Pulse Resp B/P (MAP) Pulse Ox O2 Delivery O2 Flow Rate FiO2 06/20/17 10:09 60 22 130/86 97 Room Air 06/20/17 07:39 95 Room Air 06/20/17 07:39 36.6 70 24 153/101 97 Room Air 06/20/17 07:39 73 06/20/17 07:39 Room Air Physical Exam CONSTITUTIONAL/VITAL SIGNS: Reviewed / noted above. GENERAL: Non-toxic in appearance. INTEGUMENTARY: Warm, dry, and [place]. HEAD: Normocephalic. EYES: without scleral icterus or trauma. ENT/OROPHARYNX: clear and moist. LYMPHADENOPATHY/NECK: Is supple without lymphadenopathy or meningismus. RESPIRATORY: Lungs clear and equal. CARDIOVASCULAR: Regular rate and rhythm. Systolic ejection murmur noted to auscultation. GI/ABDOMEN: Soft and nontender. No organomegaly or pulsatile mass. No rebound or guarding. Normal bowel sounds. EXTREMITIES: Warm and well perfused. BACK: No CVA tenderness. NEUROLOGICAL: Intact without focal deficits. PSYCHIATRIC: normal affect. MUSCULOSKELETAL: Normally developed with good muscle tone. Medical Decision & Procedures ER Provider Diagnostic Interpretation: X ray results and stated below per my interpretation and radiology interpretation. CHEST ONE VIEW PORTABLE FINDINGS: The heart is enlarged. There are postsurgical changes of midline sternotomy. There is a right-sided dual-lumen central venous catheter. The tip remains positioned at the superior vena cava. There is no failure. There is no focal pulmonary consolidation. There are no pleural effusions.[ IMPRESSION: Stable cardiomegaly. No acute findings. Electronically signed by: Nagi Springer M.D. 06/20/2017 7:55 AM Laboratory Results 06/20/17 08:00 Red Blood Count 4.78, Mean Corpuscular Volume 90.2, Mean Corpuscular Hemoglobin 30.5, Mean Corpuscular Hemoglobin Concent 33.9, Mean Platelet Volume 10.1, Neutrophils (%) (Auto) 75.6, Lymphocytes (%) (Auto) 14.2, Monocytes (%) (Auto) 7.0, Eosinophils (%) (Auto) 2.6, Basophils (%) (Auto) 0.4, Neutrophils # (Auto) 8.01, Lymphocytes # (Auto) 1.51, Monocytes # (Auto) 0.74, Eosinophils # (Auto) 0.28, Basophils # (Auto) 0.04 06/20/17 08:00 Test 06/20/17 07:36 06/20/17 08:00 White Blood Count 10.60 K/uL (4.8-10.8) Red Blood Count 4.78 M/uL (4.7-6.1) Hemoglobin 14.6 g/dL (14.0-18.0) Hematocrit 43.1 % (42-52) Mean Corpuscular Volume 90.2 fL (80-100) Mean Corpuscular Hemoglobin 30.5 pg (25-34) Mean Corpuscular Hemoglobin Concent 33.9 g/dl (32-36) Platelet Count 185 K/uL (130-400) Mean Platelet Volume 10.1 fL (7.4-10.4) Neutrophils (%) (Auto) 75.6 % Lymphocytes (%) (Auto) 14.2 % Monocytes (%) (Auto) 7.0 % Eosinophils (%) (Auto) 2.6 % Basophils (%) (Auto) 0.4 % Neutrophils # (Auto) 8.01 K/uL (1.4-6.5) Lymphocytes # (Auto) 1.51 K/uL (1.2-3.4) Monocytes # (Auto) 0.74 K/uL (0.11-0.59) Eosinophils # (Auto) 0.28 K/uL (0-0.5) Basophils # (Auto) 0.04 K/uL (0-0.2) RDW Standard Deviation 46.1 fL (36.4-46.3) RDW Coefficient of Variation 14.1 % (11.5-14.5) Immature Granulocyte % (Auto) 0.2 % Immature Granulocyte # (Auto) 0.02 K/uL (0.00-0.02) Prothrombin Time 25.1 SECONDS (9.0-12.0) Prothromb Time International Ratio 2.3 (0.9-1.1) Activated Partial Thromboplast Time 37.7 SECONDS (21.0-31.0) Partial Thromboplastin Ratio 1.5 Anion Gap 7.0 mmol/L (3-11) Est Creatinine Clear Calc Drug Dose 53.3 ml/min Estimated GFR () 47.1 Estimated GFR (Non- 40.7 BUN/Creatinine Ratio 14.3 (10-20) Calcium Level 8.7 mg/dl (8.5-10.1) Total Bilirubin 0.8 mg/dl (0.2-1) Direct Bilirubin 0.2 mg/dl (0-0.2) Aspartate Amino Transf (AST/SGOT) 16 U/L (15-37) Alanine Aminotransferase (ALT/SGPT) 18 U/L (12-78) Alkaline Phosphatase 93 U/L (45-117) Total Creatine Kinase 60 U/L (39-308) Creatine Kinase MB 1.4 ng/ml (0.5-3.6) Creatine Kinase MB Ratio 2.3 (0-3.0) Troponin I 0.022 ng/ml (0-0.045) Total Protein 7.9 gm/dl (6.4-8.2) Albumin 3.5 gm/dl (3.4-5.0) Lipase 72 U/L (73-393) Laboratory results as stated above per my review. ECG Indication: SOB/dyspnea Rate (beats per minute): 70 Rhythm: atrial fibrillation Findings: no acute ischemic change, no ectopy ED Course 0737: Previous medical records were reviewed. The patient was evaluated in room A10. A complete history and physical examination was performed. 1030: On reevaluation, the patient is resting comfortably. I discussed the results and findings with the patient. He verbalized agreement of the treatment plan. He was discharged home. Medical Decision The differential was considered includes acute myocardial infarction, acute coronary syndrome, myocarditis, pericarditis, pericardial effusions/tamponade, esophageal perforation, pulmonary embolism, pneumonia, pneumothorax, cardiomyopathy, congestive heart, anemia , COPD/asthma exacerbation. This is a 77-year-old male who presents to the ED with a chief complaint of feeling like he is having a hard time breathing. The patient states that he just doesn't feel good. He cannot be more specific at this time. The patient has a normal exam and his blood pressure slightly elevated. This improved while he was here. A twelve-lead EKG shows an A. fib at a rate of 70. A chest x-ray did not show acute disease. CBC is normal, INR is 2.3, complete metabolic panel was unremarkable. Glucose was 179 and creatinine is 1.6. Lipase is negative. Troponin is negative. The patient was told the results of the tests. He was felt to be stable for discharge and outpatient follow-up. Medication Reconcilliation Current Medication List: was personally reviewed by me Blood Pressure Screening Patient's blood pressure: Elevated blood pressure Blood pressure disposition: Elevated BP felt to be situational Impression Primary Impression: Dyspnea Scribe Attestation The scribe's documentation has been prepared under my direction and personally reviewed by me in its entirety. I confirm that the note above accurately reflects all work, treatment, procedures, and medical decision making performed by me. Departure Information Dispostion Home / Self-Care Referrals RV. Pond MD (PCP)
== END 2017-06-20 10:44 | disposition home or self-care (01) ==
LOC: EDBD 07:29 → C.EDA 07:30
DX: R06.02 Shortness of breath (principal); G30.9 Alzheimer's disease, unspecified; F02.80 Dementia in other diseases classified elsewhere, unspecified severity, without behavioral disturbance, psychotic disturbance, mood disturbance, and anxiety; F41.9 Anxiety disorder, unspecified; J45.909 Unspecified asthma, uncomplicated; I48.91 Unspecified atrial fibrillation; Z85.038 Personal history of other malignant neoplasm of large intestine; I25.10 Atherosclerotic heart disease of native coronary artery without angina pectoris; J44.9 Chronic obstructive pulmonary disease, unspecified; F32.9 Major depressive disorder, single episode, unspecified; Z86.718 Personal history of other venous thrombosis and embolism; I10 Essential (primary) hypertension; I25.2 Old myocardial infarction; G47.30 Sleep apnea, unspecified; E11.43 Type 2 diabetes mellitus with diabetic autonomic (poly)neuropathy; E78.00 Pure hypercholesterolemia, unspecified; Z90.49 Acquired absence of other specified parts of digestive tract; Z95.5 Presence of coronary angioplasty implant and graft; Z95.1 Presence of aortocoronary bypass graft; Z83.3 Family history of diabetes mellitus; Z82.49 Family history of ischemic heart disease and other diseases of the circulatory system; F17.210 Nicotine dependence, cigarettes, uncomplicated; Z79.82 Long term (current) use of aspirin; Z79.4 Long term (current) use of insulin; Z79.01 Long term (current) use of anticoagulants; Z79.899 Other long term (current) drug therapy

== ENCOUNTER 2017-10-07 08:02 | Emergency (ER) | payer OTHER ==
[~2017-10-07] VITALS: Ht 180.3 cm; Wt 128.0 kg
[~2017-10-07 08:02] MED LIST changes: -CMD5 PO; +FRS/40 PO; -FURO40TA3 PO; -INSU1.2I INJ; +INSU1.2I SC; -ISOS-10 PO; +ISOS60TA25 PO; +LPR25 PO; -MAGN1TAB19 PO; +NITR0.1S PO; -NITR0.4S76 PO; +NITR50CA39 PO; -NTRO1 EXT; -POTA1CAP2 PO; -SERT50TA PO; +WARF10TA4 PO; -WARF5TAB90 PO; +WARF6TAB5 PO; +ZLF/50 PO
[2017-10-07] MEDS ORDERED: ALBUT/IPRATROP 3MG/0.5MG NEB 3 ML VIAL INH STA (08:16)
[2017-10-07 08:18] VITALS: TEMP 37; Ht 180.3 cm; Wt 128.0 kg
[2017-10-07 08:24] VITALS: O2SAT 97
[2017-10-07 08:40] LABS: BASO % 0.3 %; BASO ABS # 0.02 K/uL (0-0.2); EOS % 0.6 %; EOS ABS # 0.04 K/uL (0-0.5); HEMATOCRIT 39.2 % (42-52); HEMOGLOBIN 13.2 g/dL (14.0-18.0); IG# 0.03 K/uL (0.00-0.02); LYMPH % 8.4 %; LYMPH ABS # 0.57 K/uL (1.2-3.4); MEAN CELL VOLUME 89.9 fL (80-100); MEAN CORPUSCULAR HEMOGLOBIN 30.3 pg (25-34); MEAN CORPUSCULAR HGB CONC 33.7 g/dl (32-36); MEAN PLATELET VOLUME 9.3 fL (7.4-10.4); MONO % 10.7 %; MONO ABS # 0.73 K/uL (0.11-0.59); NEUT % 79.6 %; NEUT ABS # 5.43 K/uL (1.4-6.5); PLATELET COUNT 145 K/uL (130-400); RED CELL DISTRIBUTION WIDTH CV 14.2 % (11.5-14.5); RED CELL DISTRIBUTION WIDTH SD 46.8 fL (36.4-46.3); WHITE BLOOD COUNT 6.82 K/uL (4.8-10.8)
[2017-10-07 08:53] LABS: INR 2.6 (0.9-1.1); PTT PATIENT 41.3 SECONDS (21.0-31.0)
[2017-10-07 08:58] LABS: ALBUMIN 3.3 gm/dl (3.4-5.0); CALCIUM 8.5 mg/dl (8.5-10.1); CREATININE 1.53 mg/dl (0.60-1.40); POTASSIUM 4.2 mmol/L (3.5-5.1)
--- NOTE | 2017-10-07 09:00 | DIAGNOSTIC IMAGING REPORT ---
CHEST ONE VIEW PORTABLE CLINICAL HISTORY: cough dyspnea COMPARISON STUDY: 06/20/2017 FINDINGS: Moderate cardiomegaly. Prior median sternotomy. Central catheter in superior vena cava. Prominent pulmonary vasculature. Diaphragms are smooth. IMPRESSION: Primary megaly. Prominent pulmonary vasculature suggesting early congestive failure. Possibility of a basilar pneumonitis is not excluded. The above report was generated using voice recognition software. It may contain grammatical, syntax or spelling errors. Electronically signed by: Richard Guardado M.D. 10/07/2017 8:59 AM Dictated Date/Time: 10/07/2017 8:57 AM
[2017-10-07 09:03] LABS: CKMB 1.4 ng/ml (0.5-3.6); TOTAL PROTEIN 7.2 gm/dl (6.4-8.2)
[2017-10-07] MEDS ORDERED: ATOR-24 PO (09:43)
[2017-10-07] MEDS ORDERED: ADVIN25/60 INH (09:43)
[2017-10-07] MEDS ORDERED: WARF10TA4 PO (09:43)
[2017-10-07] MEDS ORDERED: WARF-281 PO (09:43)
[2017-10-07] MEDS ORDERED: AZITTAB PO (10:29)
--- NOTE | 2017-10-07 10:30 | EMERGENCY ROOM VISIT NOTE ---
History Report prepared by Franklin: Maico Major Under the Supervision of: Dr. Dao Brown D.O. First contact with patient: 08:10 Chief Complaint: ILLNESS Stated Complaint: ILLNESS/CHEST PAIN/SHORTNESS OF BREATH History of Present Illness The patient is a 77 year old male who presents to the Emergency Room with complaints of shortness of breath that began recently. He has a past medical history of CHF, atrial fibrillation, CAD, COPD, diabetes, and asthma. Over the past couple of days, that patient has been experiencing chills, coughing, chest tightness, right sided rib pain, and right foot pain. He states that it feels like "something is inside" of his right foot causing his pain. He notes that he tried to grind off a callus recently. He has a positive sick contact via his grandson. He denies any known fevers or any other abnormal symptoms. Source of History: patient Onset: recently Position: other (Respiratory Systems) Symptom Intensity: moderate Quality: other (Shortness of breath) Timing: constant Associated Symptoms: + chills, + cough, + chest pain (pressure, and right sided rib pain), No fevers Note: He is experiencing right foot pain. Review of Systems See HPI for pertinent positives & negatives. A total of 10 systems reviewed and were otherwise negative. Past Medical & Surgical Medical Problems: (1) Alzheimers disease (2) Anxiety (3) Asthma (4) Atrial fibrillation (5) CAD (coronary artery disease) (6) Chest pain (7) CHF (congestive heart failure) (8) CHF (congestive heart failure) (9) CHF exacerbation (10) Cholelithiasis (11) Colon cancer (12) COPD (chronic obstructive pulmonary disease) (13) Depression (14) Diab Mckenna Wo Compl, Type Ii Or Unspec Type, Not Uncntrld (15) DM (diabetes mellitus) (16) DVT (deep venous thrombosis) (17) Emphysema (18) Gross hematuria (19) Hypertension Nos (20) [place] (myocardial infarction) (21) Mild sleep apnea (22) Peripheral neuropathy (23) Pure Hypercholesterolem (24) Shortness of breath Surgical Problems: (1) H/O hemicolectomy (2) History of coronary artery stent placement (3) Hx of CABG Family History Diabetes mellitus Heart disease Hypertension Social History Smoking Status: Current Every Day Smoker Alcohol Use: occasionally Drug Use: none Marital Status: Housing Status: lives with significant other Occupation Status: retired Current/Historical Medications Scheduled Aspirin (Aspirin Ec), 81 MG PO DAILY Atorvastatin (Lipitor), 40 MG PO HS Atorvastatin (Lipitor), 40 MG PO DAILY Finasteride (Proscar), 5 MG PO DAILY Fluticasone Prop/Salmeterol (Advair Diskus 250/50 60 Dose), 1 PUFF INH BID Furosemide (Lasix), 40 MG PO DAILY Insulin Aspart (Novolog Flexpen), 5 UNITS SC QAM Insulin Aspart (Novolog Flexpen), 5 UNITS SC NOON Insulin Aspart (Novolog Flexpen), 7 UNITS SC QPM Insulin Glargine (Toujeo Solostar), 30 UNITS SC QPM Ipratropium-Albuterol (Combivent Respimat), 2 PUFFS INH QID Isosorbide Mononitrate Ext Rel (Imdur Ext Rel), 60 MG PO DAILY Memantine (Namenda), 10 MG PO AMPM Metoprolol Tartrate (Lopressor), 25 MG PO AMPM Nitrofurantoin Macrocrystals (Nitrofurantoin Macrocryst), 50 MG PO QPM Ranitidine Hcl (Zantac), 300 MG PO HS Sertraline HCl (Sertraline HCl), 50 MG PO DAILY Tamsulosin Hcl (Flomax), 0.8 MG PO QPM Warfarin Sod (Jantoven), 10 MG PO WK Warfarin Sodium (Warfarin Sodium), 15 MG PO 6XWK Scheduled PRN Fluticasone Prop/Salmeterol (Advair Diskus 250/50 60 Dose), 1 PUFF INH BID PRN for SOB/Wheezing Nitroglycerin (Nitroglycerin Lingual), 1 DOSE PO DIRECTED PRN for Chest Pain Allergies Coded Allergies: Codeine (Verified Adverse Reaction, Intermediate, EMESIS, 10/07/17) Iodinated Diagnostic Agents (Verified Adverse Reaction, Mild, NAUSEA, 10/07) Physical Exam Vital Signs Date Time Temp Pulse Resp B/P (MAP) Pulse Ox O2 Delivery O2 Flow Rate FiO2 10/07/17 08:55 91 18 137/94 94 Nasal Cannula 2.0 10/07/17 08:24 97 Nasal Cannula 2.0 10/07/17 08:18 37.0 87 24 151/88 94 Room Air 10/07/17 08:09 88 Physical Exam CONSTITUTIONAL/VITAL SIGNS: Reviewed / noted above. GENERAL: Non-toxic in appearance. INTEGUMENTARY: Warm, dry, and [place]. HEAD: Normocephalic. EYES: without scleral icterus or trauma. ENT/OROPHARYNX: clear and moist. LYMPHADENOPATHY/NECK: Is supple without lymphadenopathy or meningismus. RESPIRATORY: Scattered expiratory wheezing. Mild increased work of breathing. Occasional cough. CARDIOVASCULAR: Regular rate and rhythm. GI/ABDOMEN: Soft and nontender. No organomegaly or pulsatile mass. No rebound or guarding. Normal bowel sounds. EXTREMITIES: Warm and well perfused. No obvious infection or foreign body to the right foot. Callus noted in the area of his pain. BACK: No CVA tenderness. NEUROLOGICAL: Intact without focal deficits. PSYCHIATRIC: normal affect. MUSCULOSKELETAL: Normally developed with good muscle tone. Medical Decision & Procedures ER Provider Diagnostic Interpretation: Radiology results as stated below per my review and radiologist interpretation: CHEST ONE VIEW PORTABLE CLINICAL HISTORY: cough dyspnea COMPARISON STUDY: 06/20/2017 FINDINGS: Moderate cardiomegaly. Prior median sternotomy. Central catheter in superior vena cava. Prominent pulmonary vasculature. Diaphragms are smooth. IMPRESSION: Primary megaly. Prominent pulmonary vasculature suggesting early congestive failure. Possibility of a basilar pneumonitis is not excluded. The above report was generated using voice recognition software. It may contain grammatical, syntax or spelling errors. Electronically signed by: Richard Guardado M.D. 10/07/2017 8:59 AM Dictated Date/Time: 10/07/2017 8:57 AM Laboratory Results 10/07/17 08:00 Red Blood Count 4.36, Mean Corpuscular Volume 89.9, Mean Corpuscular Hemoglobin 30.3, Mean Corpuscular Hemoglobin Concent 33.7, Mean Platelet Volume 9.3, Neutrophils (%) (Auto) 79.6, Lymphocytes (%) (Auto) 8.4, Monocytes (%) (Auto) 10.7, Eosinophils (%) (Auto) 0.6, Basophils (%) (Auto) 0.3, Neutrophils # (Auto ) 5.43, Lymphocytes # (Auto) 0.57, Monocytes # (Auto) 0.73, Eosinophils # (Auto ) 0.04, Basophils # (Auto) 0.02 10/07/17 08:00 Test 10/07/17 08:00 White Blood Count 6.82 K/uL (4.8-10.8) Red Blood Count 4.36 M/uL (4.7-6.1) Hemoglobin 13.2 g/dL (14.0-18.0) Hematocrit 39.2 % (42-52) Mean Corpuscular Volume 89.9 fL (80-100) Mean Corpuscular Hemoglobin 30.3 pg (25-34) Mean Corpuscular Hemoglobin Concent 33.7 g/dl (32-36) Platelet Count 145 K/uL (130-400) Mean Platelet Volume 9.3 fL (7.4-10.4) Neutrophils (%) (Auto) 79.6 % Lymphocytes (%) (Auto) 8.4 % Monocytes (%) (Auto) 10.7 % Eosinophils (%) (Auto) 0.6 % Basophils (%) (Auto) 0.3 % Neutrophils # (Auto) 5.43 K/uL (1.4-6.5) Lymphocytes # (Auto) 0.57 K/uL (1.2-3.4) Monocytes # (Auto) 0.73 K/uL (0.11-0.59) Eosinophils # (Auto) 0.04 K/uL (0-0.5) Basophils # (Auto) 0.02 K/uL (0-0.2) RDW Standard Deviation 46.8 fL (36.4-46.3) RDW Coefficient of Variation 14.2 % (11.5-14.5) Immature Granulocyte % (Auto) 0.4 % Immature Granulocyte # (Auto) 0.03 K/uL (0.00-0.02) Prothrombin Time 26.8 SECONDS (9.0-12.0) Prothromb Time International Ratio 2.6 (0.9-1.1) Activated Partial Thromboplast Time 41.3 SECONDS (21.0-31.0) Partial Thromboplastin Ratio 1.6 Anion Gap 7.0 mmol/L (3-11) Est Creatinine Clear Calc Drug Dose 54.2 ml/min Estimated GFR () 49.7 Estimated GFR (Non- 42.9 BUN/Creatinine Ratio 20.3 (10-20) Calcium Level 8.5 mg/dl (8.5-10.1) Total Bilirubin 0.7 mg/dl (0.2-1) Aspartate Amino Transf (AST/SGOT) 17 U/L (15-37) Alanine Aminotransferase (ALT/SGPT) 17 U/L (12-78) Alkaline Phosphatase 73 U/L (45-117) Total Creatine Kinase 169 U/L (39-308) Creatine Kinase MB 1.4 ng/ml (0.5-3.6) Creatine Kinase MB Ratio 0.8 (0-3.0) Troponin I 0.039 ng/ml (0-0.045) Total Protein 7.2 gm/dl (6.4-8.2) Albumin 3.3 gm/dl (3.4-5.0) Globulin 3.9 gm/dl (2.5-4.0) Albumin/Globulin Ratio 0.8 (0.9-2) Laboratory results as stated above per my review. Medications Administered Medications (Trade) Dose Ordered Sig/Lei Route Start Time Stop Time Status Last Admin Dose Admin Albuterol/ Ipratropium (Duoneb) 3 ml NOW STAT INH 10/07/17 08:16 10/07/17 08:19 DC 10/07/17 08:36 3 ML ECG Indication: chest pain, SOB/dyspnea Rate (beats per minute): 79 Rhythm: atrial fibrillation Findings: no acute ischemic change, no ectopy Change: ECG interpreted by me ED Course 0810: Previous medical records were reviewed. The patient was evaluated in room A11B. A complete history and physical examination was performed. 0816: Ordered DuoNeb 3 ml INH 1025: On reevaluation, the patient is resting. I discussed the results and findings with the patient. He verbalized agreement of the treatment plan. He was discharged home. Medical Decision Differentials considered include acute myocardial infarction, acute coronary syndrome, myocarditis, pericarditis, pericardial effusions /tamponade, esophageal perforation, pulmonary embolism, pneumonia, pneumothorax, cardiomyopathy, congestive heart, anemia, and COPD/asthma exacerbation. This is a 69-year-old male who presents to the ED with a chief complaint of a cough, inability to sleep well, chills, shortness of breath and rib pain. The patient states that he has had cold symptoms for over a week. His vital signs are stable. His physical exam revealed some expiratory wheezing. He does not appear to be in any significant distress and is breathing does not appear to be overly labored. The patient's chest x-ray reveals a possible basilar pneumonia. Early CHF as well. CBC is unremarkable. INR is 2.6. BUN is 31 and creatinine is 1.5. The patient was treated with a DuoNeb treatment. He will be discharged on Zithromax. He was given his first dose here. He does have a Combivent inhaler at home. Overall, the patient's symptoms are most likely viral in origin but a secondary pneumonia is possible. He does not appear to be in any acute distress and was sleeping when I reassessed the patient. He appears comfortable with his breathing and his oxygen saturations are above 90%. Medication Reconcilliation Current Medication List: was personally reviewed by me Blood Pressure Screening Patient's blood pressure: Elevated blood pressure Blood pressure disposition: Referred to PCP Impression Primary Impression: Pneumonia Additional Impression: Bronchitis Scribe Attestation The scribe's documentation has been prepared under my direction and personally reviewed by me in its entirety. I confirm that the note above accurately reflects all work, treatment, procedures, and medical decision making performed by me. Departure Information Dispostion Home / Self-Care Prescriptions Azithromycin (ZITHROMAX Z-LUCINA) 250 Mg Tab 0 PO UD, #1 PKT 2 TABS DAY 1, THEN 1 TAB DAILY FOR 4 DAYS Prov: Dao Brown D.O. 10/07/17 Referrals Liam Parra MD (PCP) Forms HOME CARE DOCUMENTATION FORM, IMPORTANT VISIT INFORMATION, WORK / SCHOOL INSTRUCTIONS Patient Instructions My [facility] Additional Instructions Zithromax as prescribed. Follow-up with your doctor for further care and evaluation in 1-2 days. Return to the emergency department for worsening or new symptoms or any concerns. You have been examined and treated today on an emergency basis only. This is not a substitute for, or an effort to provide, complete comprehensive medical care. It is impossible to recognize and treat all injuries or illnesses in a single emergency department visit. It is therefore important that you follow up closely with your doctor. Call as soon as possible for an appointment. Problem Qualifiers
[2017-10-07] MEDS ORDERED: AZITHROMYCIN 250 MG TAB PO STA (10:32)
[2017-10-07 10:49] VITALS: BP 148/90; PULSE 89; O2SAT 95
== END 2017-10-07 10:51 | disposition home or self-care (01) ==
LOC: EDBD 08:02 → C.EDA 08:03
DX: J18.9 Pneumonia, unspecified organism (principal); J20.9 Acute bronchitis, unspecified; G30.9 Alzheimer's disease, unspecified; F41.9 Anxiety disorder, unspecified; J45.909 Unspecified asthma, uncomplicated; I48.91 Unspecified atrial fibrillation; I25.10 Atherosclerotic heart disease of native coronary artery without angina pectoris; I50.9 Heart failure, unspecified; F32.9 Major depressive disorder, single episode, unspecified; E11.9 Type 2 diabetes mellitus without complications; I10 Essential (primary) hypertension; I25.2 Old myocardial infarction; G47.33 Obstructive sleep apnea (adult) (pediatric); E78.00 Pure hypercholesterolemia, unspecified; Z83.3 Family history of diabetes mellitus; Z82.49 Family history of ischemic heart disease and other diseases of the circulatory system; F17.200 Nicotine dependence, unspecified, uncomplicated; Z79.82 Long term (current) use of aspirin; Z79.4 Long term (current) use of insulin; Z79.01 Long term (current) use of anticoagulants; Z51.81 Encounter for therapeutic drug level monitoring

== ENCOUNTER 2017-10-13 13:03 | Inpatient (IN) | payer OTHER ==
[~2017-10-13] VITALS: Ht 180.3 cm; Wt 125.1 kg
[~2017-10-13 13:03] MED LIST changes: -CIPR250T3 PO; -CMD75 PO; -PRED10TA PO
[2017-10-13 15:29] VITALS: BP 145/75; PULSE 97; TEMP 36.8; O2SAT 97; BMI 38.5
[2017-10-13] MEDS ORDERED: POLYETHYLENE (MIRALAX) 17 GM PACK PO PRN (16:30)
[2017-10-13] MEDS ORDERED: ACETAMINOPHEN 325 MG TAB PO PRN (16:30)
[2017-10-13] MEDS ORDERED: ALUMINUM/MAGNESIUM/SIMETH (MAALOX MAX) 30 ML UDC PO PRN (16:30)
[2017-10-13] MEDS ORDERED: ONDANSETRON INJ 2 MG/ML 2 ML VIAL IV PRN (16:30)
[2017-10-13] MEDS ORDERED: MAGNESIUM HYDROXIDE SUSP 30 ML UDC PO PRN (16:30)
--- NOTE | 2017-10-13 16:54 | History and Physical ---
History & Physical Date & Time of Service: Oct 13, 2017 at 16:32 Chief Complaint: Copd Exacerbation Primary Care Physician: Deidra Correa M.D. History of Present Illness Source: patient, family (granddaughter ), clinic records, hospital records Patient is a pleasant 77 y/o male, with PMHx of CAD s/p cardiac stenting and CABG in 2010, ischemic cardiomyopathy, combined systolic/diastolic CHF, a.fib, CKD stage III, HTN, HLD, T2DM, COPD, obesity, Alzheimer's disease, depression/ anxiety, BPH w/ urinary retention, and GERD, who presented to [facility] by direct admission from Dr. Grubbs's office due to failed outpatient treatment of COPD exacerbation/acute bronchitis. Patient states approximately two weeks ago he started to experience SOB at rest and with exertion. He also admits to productive cough w/ brown sputum, upset stomach/nausea, and body aches. Patient completed a course of Azithromycin on Tuesday- denies any improvement in symptoms. He was seen by his PCP today who recommended he be admitted because his symptoms are not improved. CXR done outpatient showed no signs of acute infection or fluid overload. +diarrhea- 3 episode in the past two weeks. Patient denies any fever, chills, sweats, lightheadedness, dizziness, vision changes, CP, palpitations, edema, wheezing, vomiting, diarrhea, urinary symptoms , melena, numbness/tingling, weakness, anxiety/depression, active bleeding, or new skin discoloration/changes. Past Medical/Surgical History Medical Problems: CAD s/p cardiac stenting and CABG in 2010 ischemic cardiomyopathy combined systolic/diastolic CHF a.fib CKD stage III HTN HLD T2DM COPD obesity Alzheimer's disease depression/anxiety BPH w/ urinary retention GERD Surgical Problems: (1) H/O hemicolectomy Status: Resolved (2) History of coronary artery stent placement Status: Resolved (3) Hx of CABG Status: Resolved Family History Diabetes mellitus Heart disease Hypertension Social History Smoking Status: Never Smoker Drug Use: none Marital Status: Housing status: lives with family Occupational Status: retired Immunizations History of Influenza Vaccine: Yes Influenza Vaccine Date: Jun 12, 2010 History of Tetanus Vaccine?: Yes History of Pneumococcal: Yes History of Hepatitis B Vaccine: Unknown Multi-Drug Resistant Organisms History of MDRO: No Allergies Coded Allergies: Codeine (Verified Adverse Reaction, Intermediate, EMESIS, 10/07/17) Iodinated Diagnostic Agents (Verified Adverse Reaction, Mild, NAUSEA, 10/07) Home Medications Scheduled Aspirin (Aspirin Ec), 81 MG PO DAILY Atorvastatin (Lipitor), 40 MG PO HS Atorvastatin (Lipitor), 40 MG PO DAILY Azithromycin (Zithromax Z-Raman), 0 PO UD Finasteride (Proscar), 5 MG PO DAILY Fluticasone Prop/Salmeterol (Advair Diskus 250/50 60 Dose), 1 PUFF INH BID Furosemide (Lasix), 40 MG PO DAILY Insulin Aspart (Novolog Flexpen), 5 UNITS SC QAM Insulin Aspart (Novolog Flexpen), 5 UNITS SC NOON Insulin Aspart (Novolog Flexpen), 7 UNITS SC QPM Insulin Glargine (Toujeo Solostar), 30 UNITS SC QPM Ipratropium-Albuterol (Combivent Respimat), 2 PUFFS INH QID Isosorbide Mononitrate Ext Rel (Imdur Ext Rel), 60 MG PO DAILY Memantine (Namenda), 10 MG PO AMPM Metoprolol Tartrate (Lopressor), 25 MG PO AMPM Nitrofurantoin Macrocrystals (Nitrofurantoin Macrocryst), 50 MG PO QPM Ranitidine Hcl (Zantac), 300 MG PO HS Sertraline HCl (Sertraline HCl), 50 MG PO DAILY Tamsulosin Hcl (Flomax), 0.8 MG PO QPM Warfarin Sod (Jantoven), 10 MG PO WK Warfarin Sodium (Warfarin Sodium), 15 MG PO 6XWK Scheduled PRN Fluticasone Prop/Salmeterol (Advair Diskus 250/50 60 Dose), 1 PUFF INH BID PRN for SOB/Wheezing Nitroglycerin (Nitroglycerin Lingual), 1 DOSE PO DIRECTED PRN for Chest Pain Physical Exam Vital Signs Date Time Temp Pulse Resp B/P (MAP) Pulse Ox O2 Delivery O2 Flow Rate FiO2 10/13/17 16:00 Room Air 10/13/17 15:29 36.8 97 20 145/75 97 Room Air General Appearance: no apparent distress, + obese Head: normocephalic, atraumatic Eyes: normal inspection, PERRL ENT: hearing grossly normal Neck: supple Respiratory/Chest: no respiratory distress, no accessory muscle use, + decreased breath sounds (L lung base ), + wheezing (expiratory wheeze throughout ), + pertinent finding (course breath sounds throughout ) Cardiovascular: regular rate, rhythm, + systolic murmur Abdomen/GI: normal bowel sounds, non tender, soft Back: normal inspection Extremities/Musculoskelatal: no calf tenderness, no pedal edema Neurologic/Psych: alert, normal mood/affect, oriented x 3 Skin: normal color, warm/dry, no rash Diagnostics Laboratory Results Results Past 24 Hours Test 10/13/17 16:23 Range/Units Bedside Glucose 184 70-99 mg/dl Diagnostic Radiology CHEST 2 VIEWS ROUTINE CLINICAL HISTORY: Shortness of breath. Failure of outpatient treatment. COMPARISON STUDY: 10/07/2017 FINDINGS: There are postsurgical changes of a midline sternotomy. The heart is mildly enlarged. There is a dual-lumen right-sided A-Port catheter. There is no focal pulmonary consolidation. There are no pleural effusions. There is no overt failure.[ IMPRESSION: Mild cardiomegaly. No acute findings. Electronically signed by: Nagi Springer M.D. 10/13/2017 12:24 PM Dictated Date/Time: 10/13/2017 12:24 PM The status of this report is Signed. Draft = Not yet reviewed or approved by Radiologist. Signed = Reviewed and approved by Radiologist. Impression Assessment and Plan Patient is a pleasant 77 y/o male, with PMHx of CAD s/p cardiac stenting and CABG in 2010, ischemic cardiomyopathy, combined systolic/diastolic CHF, a.fib, CKD stage III, HTN, HLD, T2DM, COPD, obesity, Alzheimer's disease, depression/ anxiety, BPH w/ urinary retention, and GERD, who presented to [facility] by direct admission from Dr. Grubbs's office due to failed outpatient treatment of COPD exacerbation/acute bronchitis. Acute on chronic COPD exacerbation: - Admit to med/surg - O2 protocol- currently on RA- no O2 supplement at home - DuoNebs QID and PRN for SOB/wheezing, incentive spirometer, flutter valve - IV Solu Medrol 60 mg TID - Mucinex BID - Obtain sputum culture, influenza swab, UA - No antibiotics at this time due to CXR negative for acute process; reconsider pending WBC and any fevers CAD s/p cardiac stenting and CABG in 2010, ischemic cardiomyopathy, combined systolic/diastolic CHF, a.fib, HTN, HLD- Dr. 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 Y/N: Yes Risk Level: Moderate Given or contraindicated: Warfarin (Coumadin) Note Attending Admission Note & Attestation: Pt seen/examined, chart reviewed, care plan d/w CIRA Heredia. I agree w/ the lema components of her admission documentation except -- on heart exam rhythm is irregular c/w a. fib. 77yo male with numerous medical problems - CAD, CHF (systolic/diastolic/right- sided), COPD, T2DM, obesity, CKD stage 2-3 -- presenting as a direct admission for COPD exacerbation. This is despite recent use of z-pack for same. PMH, PSH, allergies, meds, sochx, famhx, ros - reviewed VSS no fever o2 sats in RA wnl gen - obese, coughing, no distress neck - no JVD mouth - MMM heart - heart tones distant, s1, s2, irregular, 2/6 systolic murmur RUSB lungs - diffuse wheezing b/l, minimal rales bases abd - obese, soft ext - no edema flu A testing POSITIVE cxr today w/o infiltrates or CHF Cr 1.7 A/P: 1. COPD exacerbation 2nd to influenza A infection 2. chronic systolic/diastolic CHF + right-sided CHF - compensated 3. a. fib on chronic coumadin with supratherapeutic INR 4. gonzalez-catheter associated / complicated UTI agree with IV steroids, nebs hold coumadin, daily INR tamiflu x 5 days, supportive care, droplet isolation continue CHF meds including diuretics rocephin for possible UTI; follow culture Ramsey Farr MD
[2017-10-13 17:33] LABS: HEMATOCRIT 39.4 % (42-52); HEMOGLOBIN 13.7 g/dL (14.0-18.0); MEAN CELL VOLUME 88.1 fL (80-100); MEAN CORPUSCULAR HEMOGLOBIN 30.6 pg (25-34); MEAN CORPUSCULAR HGB CONC 34.8 g/dl (32-36); MEAN PLATELET VOLUME 9.8 fL (7.4-10.4); PLATELET COUNT 148 K/uL (130-400); RED CELL DISTRIBUTION WIDTH CV 13.9 % (11.5-14.5); RED CELL DISTRIBUTION WIDTH SD 44.6 fL (36.4-46.3)
[2017-10-13] MEDS: INSULIN ASPART 100 UNITS/ML 3 ML PEN SC SCH ×2 (17:52→21:00)
[2017-10-13 17:57] LABS: CALCIUM 8.2 mg/dl (8.5-10.1); CREATININE 1.7 mg/dl (0.60-1.40); POTASSIUM 3.9 mmol/L (3.5-5.1)
[2017-10-13] MEDS ORDERED: PNEUMOCOCCAL POLYSACCHARIDES 25 MCG/0.5 ML VIAL/SYR IM. ONE (18:00)
[2017-10-13] MEDS ORDERED: PNEUMOCOCCAL ADMINISTRATION CHARGE ONE (18:00)
[2017-10-13 18:05] LABS: INR 4.4 (0.9-1.1)
[2017-10-13 19:11] LABS: INFLUENZA B PCR Neg for Influ B (NEG)
[2017-10-13 19:13] LABS: INFLUENZA A PCR POS for Influ A (NEG)
[2017-10-13 19:39] VITALS: BP 179/67; PULSE 59; TEMP 36.9; O2SAT 95
[2017-10-13] MEDS ORDERED: OSELTAMIVIR PHOSPHATE 75 MG CAP PO SCH (19:45)
[2017-10-13 20:00] VITALS: PULSE 58; O2SAT 97
[2017-10-13] MEDS: ALBUT/IPRATROP 3MG/0.5MG NEB 3 ML VIAL INH SCH (20:00)
[2017-10-13] MEDS ORDERED: INSULIN GLARGINE SOLOSTAR 100 UNITS/ML 3 ML PEN SC SCH (21:00)
[2017-10-13] MEDS ORDERED: INSULIN ASPART 100 UNITS/ML 3 ML PEN SC SCH (21:00)
[2017-10-13] MEDS: TAMSULOSIN HCL 0.4 MG CAP PO SCH (21:25)
[2017-10-13] MEDS: ATORVASTATIN 40 MG TAB PO SCH (21:25)
[2017-10-13] MEDS: FLUTICASONE/SALMETEROL 250/50 (ADVAIR) 14 PUFF/1 INHALER INH SCH (21:25)
[2017-10-13] MEDS: METOPROLOL TARTRATE 25 MG TAB PO SCH (21:26)
[2017-10-13] MEDS: MEMANTINE 10 MG TAB PO SCH (21:26)
[2017-10-13] MEDS: MAGNESIUM OXIDE 400 MG TAB PO SCH (21:26)
[2017-10-13] MEDS: GUAIFENESIN 600 MG TABCR PO SCH (21:26)
[2017-10-13] MEDS: OSELTAMIVIR PHOSPHATE SUSP 30 MG/5 ML UDP PO SCH (21:27)
[2017-10-13] MEDS: METHYLPREDNISOLONE IV 60 MG in SYRINGE 0 ML IV SCH (21:27)
[2017-10-13] MEDS: CEFTRIAXONE SOD INJ 1 GM in DEXTROSE 5% ADD-VANTAGE 50ML 50 ML IV SCH (21:27)
[2017-10-13] MEDS: RANITIDINE HCL 150 MG TAB PO SCH (21:27)
[2017-10-13 23:33] VITALS: BP 129/73; PULSE 55; TEMP 36.8; O2SAT 93
[2017-10-14] VITALS (10 sets, daily range): BP systolic 126–169; BP diastolic 52–88; PULSE 53–74; TEMP 36.4–36.5; O2SAT 90–95; BMI 38.5
[2017-10-14] MEDS: METHYLPREDNISOLONE IV 60 MG in SYRINGE 0 ML IV SCH (06:13)
[2017-10-14 06:56] LABS: HEMOGLOBIN A1C 8.8 % (4.5-5.6)
[2017-10-14] MEDS: ALBUT/IPRATROP 3MG/0.5MG NEB 3 ML VIAL INH SCH ×4 (06:57→19:38)
--- NOTE | 2017-10-14 07:11 | Family Medicine Progress Note ---
Progress Note Date of Service Oct 14, 2017. Subjective Pt evaluation today including: conversation w/ patient, physical exam, chart review, lab review Reports feeling better, but still complains of IRVING. He is less SOB at rest. Patient has been up ambulating and has tolerating PO intake. Constitutional: No fever, No chills, No sweats Respiratory: + cough, + sputum, + shortness of breath, + dyspnea on exertion Abdomen: No pain, No nausea, No vomiting, No diarrhea Male : No dysuria Medications Current Inpatient Medications Medications (Trade) Dose Ordered Sig/Lei Route Start Time Stop Time Status Last Admin Dose Admin Acetaminophen (Tylenol Tab) 650 mg Q4H PRN PO 10/13/17 16:30 11/12/17 16:29 Al Hydrox/Mg Hydrox/Simethicone (Maalox Max Susp) 15 ml Q4H PRN PO 10/13/17 16:30 11/12/17 16:29 Magnesium Hydroxide (Milk Of Magnesia Susp) 30 ml Q6H PRN PO 10/13/17 16:30 11/12/17 16:29 Polyethylene (Miralax Powder Packet) 17 gm DAILY PRN PO 10/13/17 16:30 11/12/17 16:29 Ondansetron HCl (Zofran Inj) 4 mg Q6H PRN IV 10/13/17 16:30 11/12/17 16:29 Aspirin (Ecotrin Tab) 81 mg DAILY PO 10/14/17 09:00 11/13/17 08:59 10/14/17 08:30 81 MG Atorvastatin Calcium (Lipitor Tab) 40 mg HS PO 10/13/17 21:00 11/12/17 20:59 10/13/17 21:25 40 MG Finasteride (Proscar Tab) 5 mg DAILY PO 10/14/17 09:00 11/13/17 08:59 10/14/17 08:29 5 MG Salmeterol Xinafoate/ Fluticasone (Advair Diskus 250/50 Inh) 1 puff BID INH 10/13/17 21:00 11/12/17 20:59 10/14/17 08:31 1 PUFF Furosemide (Lasix Tab) 40 mg DAILY PO 10/14/17 09:00 11/13/17 08:59 2/2/18 08:29 40 MG Isosorbide Mononitrate (Imdur Ext Rel Tab) 60 mg DAILY PO 10/14/17 09:00 11/13/17 08:59 10/14/17 08:29 60 MG Memantine (Namenda Tab) 10 mg BID PO 10/13/17 21:00 11/12/17 20:59 10/14/17 08:27 10 MG Metoprolol Tartrate (Lopressor Tab) 25 mg BID PO 10/13/17 21:00 11/12/17 20:59 10/14/17 08:34 25 MG Ranitidine HCl (zANTac TAB) 300 mg HS PO 10/13/17 21:00 11/12/17 20:59 10/13/17 21:27 300 MG Sertraline HCl (Zoloft Tab) 50 mg DAILY PO 10/14/17 09:00 11/13/17 08:59 10/14/17 08:28 50 MG Tamsulosin HCl (Flomax Cap) 0.8 mg QPM PO 10/13/17 21:00 11/12/17 20:59 10/13/17 21:25 0.8 MG Insulin Glargine (Lantus Solostar Pen) 30 units QPM SC 10/14/17 21:00 11/13/17 20:59 Warfarin Sodium (Coumadin Tab) 10 mg Mo@1600 PO 10/17/17 16:00 11/16/17 15:59 Warfarin Sodium (Coumadin Tab) 15 mg SuTuWeThFrSa@1600 PO 10/14/17 16:00 11/13/17 15:59 Future Hold Nitroglycerin (Nitro-Dur 0.2 Mg/Hr Patch) 1 patch QAM TD 10/14/17 09:00 11/13/17 08:59 10/14/17 10:53 1 PATCH Miscellaneous (Remove Nitro-Dur Patch) 1 ea DAILY@21 N/A 10/13/17 21:00 11/12/17 20:59 10/13/17 21:27 1 EA Magnesium Oxide (Mag-Ox Tab) 400 mg BID PO 10/13/17 21:00 11/12/17 20:59 10/14/17 08:31 400 MG Albuterol/ Ipratropium (Duoneb) 3 ml QIDR INH 10/13/17 20:00 11/12/17 19:59 10/14/17 16:10 3 ML Insulin Aspart (novoLOG ASPART) SLIDING SCALE G... ACHS SC 10/13/17 16:30 11/12/17 16:29 10/14/17 12:58 15 UNITS Guaifenesin (Mucinex Contr Rel Tab) 600 mg Q12 PO 10/13/17 21:00 11/12/17 20:59 10/14/17 08:30 600 MG Ceftriaxone Sodium 1 gm/ Dextrose 50 ml @ 100 mls/hr Q24H IV 10/13/17 21:00 10/23/17 20:59 10/13/17 21:27 100 MLS/HR Oseltamivir Phosphate (Tamiflu Susp) 30 mg BID PO 10/13/17 21:00 10/18/17 20:59 10/14/17 08:28 30 MG Prednisone (PredniSONE TAB) 50 mg DAILY PO 10/15/17 09:00 10/19/17 08:59 Prednisone (PredniSONE TAB) 50 mg 1700 ONCE PO 10/14/17 17:00 10/14/17 17:01 Objective Vital Signs Date Time Temp Pulse Resp B/P (MAP) Pulse Ox O2 Delivery O2 Flow Rate FiO2 10/14/17 16:10 64 16 93 Room Air 10/14/17 15:33 36.4 66 20 126/52 (76) 92 Room Air 10/14/17 11:10 58 16 90 Room Air 10/14/17 10:52 74 127/66 (86) 10/14/17 08:34 62 10/14/17 08:00 Room Air 10/14/17 07:11 36.5 53 18 154/74 (100) 95 Room Air 10/14/17 07:02 67 16 95 Room Air 10/13/17 23:33 36.8 55 20 129/73 (91) 93 Room Air 10/13/17 23:30 Room Air 10/13/17 20:00 58 16 97 Room Air 10/13/17 19:39 36.9 59 16 179/67 (104) 95 Room Air Physical Exam General Appearance: WD/WN, no apparent distress Respiratory/Chest: chest non-tender, no respiratory distress, no accessory muscle use, + rales Cardiovascular: regular rate, rhythm, + systolic murmur Abdomen: normal bowel sounds, non tender, soft Neurologic/Psychiatric: alert, normal mood/affect, oriented x 3 Skin: normal color, warm/dry, no rash Laboratory Results 10/14/17 06:50 10/14/17 06:50 Test 10/13/17 17:07 10/14/17 06:50 10/14/17 16:25 Estimated Average Glucose 206 mg/dl Hemoglobin A1c 8.8 % (4.5-5.6) Magnesium Level 2.1 mg/dl (1.8-2.4) Red Blood Count 4.60 M/uL (4.7-6.1) Mean Corpuscular Volume 87.8 fL (80-100) Mean Corpuscular Hemoglobin 30.2 pg (25-34) Mean Corpuscular Hemoglobin Concent 34.4 g/dl (32-36) RDW Standard Deviation 43.7 fL (36.4-46.3) RDW Coefficient of Variation 13.8 % (11.5-14.5) Mean Platelet Volume 10.2 fL (7.4-10.4) Prothrombin Time 34.2 SECONDS (9.0-12.0) Prothromb Time International Ratio 3.3 (0.9-1.1) Anion Gap 6.0 mmol/L (3-11) Est Creatinine Clear Calc Drug Dose 52.6 ml/min Estimated GFR () 48.6 Estimated GFR (Non- 41.9 BUN/Creatinine Ratio 17.4 (10-20) Calcium Level 8.2 mg/dl (8.5-10.1) Bedside Glucose 302 mg/dl (70-99) Assessment and Plan 77 yo male presents with respiratory distress 2/2 to COPD exacerbation in the setting of influenza. Patient failed outpatient treatment including 5 day course of Azithromycin. Patient treated with breathing treatments and prednisone. Patient was found to have a INR of 3.3 today, in the ED warfarin was held. Reducing daily dose to 5 mg and will follow INR closely. Will adjust insulin accordingly to labile blood glucose on steroids. Physical therapy recommends home health PT at discharge. Acute on chronic COPD exacerbation: -Influenza positive -No home O2 requirement -DuoNebs QID and PRN for SOB/wheezing, incentive spirometer, flutter valve -Prednisone PO 50mg daily, 5 day course (day 2) -Mucinex -Awaiting cultures; urine, blood, sputum -CXR unremarkable, but the patient has rales bilaterally UTI -1 gram of Rocephin in the ED, awaiting urine cultures AFIB -INR of 3.3, Coumadin held in ED -Patient given 5mg of Coumadin today, previously on 10mg. -Follow daily INR CAD -ASA, Imdur, nitro -EKG with chest pain CHF -Lasix HLD -Continue Lipitor T2DM -last hgbA1c 11.1% in 04/2017: -Lantus/novolog CKD stage III -baseline Cr 1.6 Alzheimer's disease -Namenda BPH w/ urinary retention- does self catheterizations: - UA pending - Proscar and Flomax Anxiety, depression -Zoloft GERD, GI prophylaxis -Zantac DVT prophylaxis: Coumadin Code status: LEVEL III, FULL, NO VENT Resident Physician Supervision Note: I was present with Dr. De La Cruz during the history and exam. I discussed the case with the resident and agree with the findings and plan as documented in the note. Documented By: Hadley Barahona
[2017-10-14 07:19] LABS: HEMATOCRIT 40.4 % (42-52); HEMOGLOBIN 13.9 g/dL (14.0-18.0); MEAN CELL VOLUME 87.8 fL (80-100); MEAN CORPUSCULAR HEMOGLOBIN 30.2 pg (25-34); MEAN CORPUSCULAR HGB CONC 34.4 g/dl (32-36); MEAN PLATELET VOLUME 10.2 fL (7.4-10.4); PLATELET COUNT 170 K/uL (130-400); RED CELL DISTRIBUTION WIDTH CV 13.8 % (11.5-14.5); RED CELL DISTRIBUTION WIDTH SD 43.7 fL (36.4-46.3); WHITE BLOOD COUNT 6.88 K/uL (4.8-10.8)
[2017-10-14 07:25] LABS: INR 3.3 (0.9-1.1)
[2017-10-14 07:57] LABS: CALCIUM 8.2 mg/dl (8.5-10.1); CREATININE 1.56 mg/dl (0.60-1.40); POTASSIUM 4.3 mmol/L (3.5-5.1)
[2017-10-14] MEDS: MEMANTINE 10 MG TAB PO SCH ×2 (08:27→21:21)
[2017-10-14] MEDS: OSELTAMIVIR PHOSPHATE SUSP 30 MG/5 ML UDP PO SCH ×2 (08:28→21:20)
[2017-10-14] MEDS: SERTRALINE HCL 50 MG TAB PO SCH (08:28)
[2017-10-14] MEDS: FINASTERIDE 5 MG TAB PO SCH (08:29)
[2017-10-14] MEDS: FUROSEMIDE 40 MG TAB PO SCH (08:29)
[2017-10-14] MEDS: ISOSORBIDE MONONITRATE 60 MG TABCR PO SCH (08:29)
[2017-10-14] MEDS: GUAIFENESIN 600 MG TABCR PO SCH ×2 (08:30→21:19)
[2017-10-14] MEDS: ASPIRIN 81 MG ECTAB PO SCH (08:30)
[2017-10-14] MEDS: FLUTICASONE/SALMETEROL 250/50 (ADVAIR) 14 PUFF/1 INHALER INH SCH ×2 (08:31→21:19)
[2017-10-14] MEDS: MAGNESIUM OXIDE 400 MG TAB PO SCH ×2 (08:31→21:21)
[2017-10-14] MEDS: METOPROLOL TARTRATE 25 MG TAB PO SCH ×2 (08:34→21:22)
[2017-10-14] MEDS: INSULIN ASPART 100 UNITS/ML 3 ML PEN SC SCH ×4 (08:38→22:00)
[2017-10-14] MEDS ORDERED: INSULIN ASPART 100 UNITS/ML 3 ML PEN SC SCH (09:00)
[2017-10-14] MEDS: NITROGLYCERIN 0.2 MG/HR PATCH TD SCH (10:53)
[2017-10-14] MEDS ORDERED: WARFARIN SOD 5 MG TAB PO SCH (16:00)
[2017-10-14] MEDS ORDERED: WARFARIN SOD 7.5 MG TAB PO SCH (16:00)
[2017-10-14] MEDS: ATORVASTATIN 40 MG TAB PO SCH (21:19)
[2017-10-14] MEDS: CEFTRIAXONE SOD INJ 1 GM in DEXTROSE 5% ADD-VANTAGE 50ML 50 ML IV SCH (21:19)
[2017-10-14] MEDS: RANITIDINE HCL 150 MG TAB PO SCH (21:20)
[2017-10-14] MEDS: TAMSULOSIN HCL 0.4 MG CAP PO SCH (21:23)
[2017-10-14] MEDS: INSULIN GLARGINE SOLOSTAR 100 UNITS/ML 3 ML PEN SC SCH (22:01)
[2017-10-15] VITALS (10 sets, daily range): BP systolic 137–150; BP diastolic 64–79; PULSE 59–77; TEMP 36.4–36.7; O2SAT 93–96
[2017-10-15 06:18] LABS: HEMATOCRIT 36.9 % (42-52); HEMOGLOBIN 12.7 g/dL (14.0-18.0); MEAN CELL VOLUME 86.8 fL (80-100); MEAN CORPUSCULAR HEMOGLOBIN 29.9 pg (25-34); MEAN CORPUSCULAR HGB CONC 34.4 g/dl (32-36); MEAN PLATELET VOLUME 10.4 fL (7.4-10.4); PLATELET COUNT 192 K/uL (130-400); RED CELL DISTRIBUTION WIDTH CV 13.9 % (11.5-14.5); RED CELL DISTRIBUTION WIDTH SD 43.8 fL (36.4-46.3); WHITE BLOOD COUNT 9.52 K/uL (4.8-10.8)
[2017-10-15 06:54] LABS: CREATININE 1.81 mg/dl (0.60-1.40); POTASSIUM 4.3 mmol/L (3.5-5.1)
[2017-10-15] MEDS: ALBUT/IPRATROP 3MG/0.5MG NEB 3 ML VIAL INH SCH ×4 (07:22→19:36)
[2017-10-15] MEDS: FLUTICASONE/SALMETEROL 250/50 (ADVAIR) 14 PUFF/1 INHALER INH SCH ×2 (08:26→20:49)
[2017-10-15] MEDS: FUROSEMIDE 40 MG TAB PO SCH (08:27)
[2017-10-15] MEDS: FINASTERIDE 5 MG TAB PO SCH (08:27)
[2017-10-15] MEDS: ISOSORBIDE MONONITRATE 60 MG TABCR PO SCH (08:27)
[2017-10-15] MEDS: MAGNESIUM OXIDE 400 MG TAB PO SCH ×2 (08:28→20:49)
[2017-10-15] MEDS: ASPIRIN 81 MG ECTAB PO SCH (08:28)
[2017-10-15] MEDS: GUAIFENESIN 600 MG TABCR PO SCH ×2 (08:28→20:51)
[2017-10-15] MEDS: METOPROLOL TARTRATE 25 MG TAB PO SCH ×2 (08:28→20:52)
[2017-10-15] MEDS: MEMANTINE 10 MG TAB PO SCH ×2 (08:28→20:50)
[2017-10-15] MEDS: SERTRALINE HCL 50 MG TAB PO SCH (08:29)
[2017-10-15] MEDS: NITROGLYCERIN 0.2 MG/HR PATCH TD SCH (08:29)
[2017-10-15] MEDS: OSELTAMIVIR PHOSPHATE SUSP 30 MG/5 ML UDP PO SCH ×2 (08:31→20:48)
[2017-10-15] MEDS: INSULIN HUMAN NPH SC SCH (08:36)
[2017-10-15] MEDS: INSULIN ASPART 100 UNITS/ML 3 ML PEN SC SCH ×4 (08:37→20:58)
[2017-10-15] MEDS ORDERED: WARFARIN SOD 7.5 MG TAB PO ONE (16:45)
[2017-10-15] MEDS: SODIUM CHLORIDE 0.9% 1000ML 1,000 ML IV SCH (17:04)
--- NOTE | 2017-10-15 18:54 | Family Medicine Progress Note ---
Progress Note Date of Service Oct 15, 2017. Subjective Pt evaluation today including: conversation w/ patient, physical exam, chart review, lab review, review of inpatient medication list Pain: No pain reported by patient PO Intake: Tolerating diet well Voiding: requires PRN straight cath Patient states he is feeling better but knows he would become dyspneic on exertion. He is requesting to be able to walk in the halls Constitutional: + weakness Respiratory: + cough, + wheezing, + shortness of breath, + dyspnea on exertion Cardiovascular: No orthopnea, No PND, No edema Neurologic: + numbness/tingling All Other Systems: Reviewed and Negative Medications Current Inpatient Medications Medications (Trade) Dose Ordered Sig/Lei Route Start Time Stop Time Status Last Admin Dose Admin Acetaminophen (Tylenol Tab) 650 mg Q4H PRN PO 10/13/17 16:30 11/12/17 16:29 Al Hydrox/Mg Hydrox/Simethicone (Maalox Max Susp) 15 ml Q4H PRN PO 10/13/17 16:30 11/12/17 16:29 Magnesium Hydroxide (Milk Of Magnesia Susp) 30 ml Q6H PRN PO 10/13/17 16:30 11/12/17 16:29 Polyethylene (Miralax Powder Packet) 17 gm DAILY PRN PO 10/13/17 16:30 11/12/17 16:29 Ondansetron HCl (Zofran Inj) 4 mg Q6H PRN IV 10/13/17 16:30 11/12/17 16:29 Aspirin (Ecotrin Tab) 81 mg DAILY PO 10/14/17 09:00 11/13/17 08:59 10/15/17 08:28 81 MG Atorvastatin Calcium (Lipitor Tab) 40 mg HS PO 10/13/17 21:00 11/12/17 20:59 10/14/17 21:19 40 MG Finasteride (Proscar Tab) 5 mg DAILY PO 10/14/17 09:00 11/13/17 08:59 10/15/17 08:27 5 MG Salmeterol Xinafoate/ Fluticasone (Advair Diskus 250/50 Inh) 1 puff BID INH 10/13/17 21:00 11/12/17 20:59 10/15/17 08:26 1 PUFF Furosemide (Lasix Tab) 40 mg DAILY PO 10/14/17 09:00 11/13/17 08:59 10/15/17 08:27 40 MG Isosorbide Mononitrate (Imdur Ext Rel Tab) 60 mg DAILY PO 10/14/17 09:00 11/13/17 08:59 10/15/17 08:27 60 MG Memantine (Namenda Tab) 10 mg BID PO 10/13/17 21:00 11/12/17 20:59 10/15/17 08:28 10 MG Metoprolol Tartrate (Lopressor Tab) 25 mg BID PO 10/13/17 21:00 11/12/17 20:59 10/15/17 08:28 25 MG Ranitidine HCl (zANTac TAB) 300 mg HS PO 10/13/17 21:00 11/12/17 20:59 10/14/17 21:20 300 MG Sertraline HCl (Zoloft Tab) 50 mg DAILY PO 10/14/17 09:00 11/13/17 08:59 10/15/17 08:29 50 MG Tamsulosin HCl (Flomax Cap) 0.8 mg QPM PO 10/13/17 21:00 11/12/17 20:59 10/14/17 21:23 0.8 MG Insulin Glargine (Lantus Solostar Pen) 30 units QPM SC 10/14/17 21:00 11/13/17 20:59 10/14/17 22:01 30 UNITS Warfarin Sodium (Coumadin Tab) 10 mg Mo@1600 PO 10/17/17 16:00 11/16/17 15:59 Warfarin Sodium (Coumadin Tab) 15 mg SuTuWeThFrSa@1600 PO 10/14/17 16:00 11/13/17 15:59 Future Hold Nitroglycerin (Nitro-Dur 0.2 Mg/Hr Patch) 1 patch QAM TD 10/14/17 09:00 11/13/17 08:59 10/15/17 08:29 1 PATCH Miscellaneous (Remove Nitro-Dur Patch) 1 ea DAILY@21 N/A 10/13/17 21:00 11/12/17 20:59 10/14/17 22:01 1 EA Magnesium Oxide (Mag-Ox Tab) 400 mg BID PO 10/13/17 21:00 11/12/17 20:59 10/15/17 08:28 400 MG Albuterol/ Ipratropium (Duoneb) 3 ml QIDR INH 10/13/17 20:00 11/12/17 19:59 10/15/17 15:05 3 ML Insulin Aspart (novoLOG ASPART) SLIDING SCALE G... ACHS SC 10/13/17 16:30 11/12/17 16:29 10/15/17 17:35 17 UNITS Guaifenesin (Mucinex Contr Rel Tab) 600 mg Q12 PO 10/13/17 21:00 11/12/17 20:59 10/15/17 08:28 600 MG Ceftriaxone Sodium 1 gm/ Dextrose 50 ml @ 100 mls/hr Q24H IV 10/13/17 21:00 10/23/17 20:59 10/14/17 21:19 100 MLS/HR Oseltamivir Phosphate (Tamiflu Susp) 30 mg BID PO 10/13/17 21:00 10/18/17 20:59 10/15/17 08:31 30 MG Prednisone (PredniSONE TAB) 50 mg DAILY PO 10/15/17 09:00 10/19/17 08:59 10/15/17 08:27 50 MG Insulin Human NPH (novoLIN-N NPH) 50 units QD@08 SC 10/15/17 08:00 11/14/17 07:59 10/15/17 08:36 50 UNITS Sodium Chloride 1,000 ml @ 75 mls/hr [id number] IV 10/15/17 16:45 11/14/17 16:44 10/15/17 17:04 75 MLS/HR Objective Vital Signs Date Time Temp Pulse Resp B/P (MAP) Pulse Ox O2 Delivery O2 Flow Rate FiO2 10/15/17 15:20 Room Air 10/15/17 15:11 36.7 72 20 137/69 (91) 94 Room Air 10/15/17 15:05 72 16 95 Room Air 10/15/17 11:13 60 16 94 Room Air 10/15/17 08:26 68 10/15/17 08:00 93 Room Air 10/15/17 07:22 77 16 93 Room Air 10/15/17 07:05 36.6 59 20 150/79 (102) 95 Room Air 10/15/17 00:44 93 Room Air 10/14/17 23:49 36.5 65 20 169/88 (115) 94 Room Air 10/14/17 20:00 93 Room Air 10/14/17 19:38 73 16 93 Room Air Physical Exam General Appearance: WD/WN, no apparent distress Eyes: normal inspection, PERRL, EOMI ENT: hearing grossly normal Neck: supple, no adenopathy, no JVD, no carotid bruits, trachea midline Respiratory/Chest: chest non-tender, lungs clear, normal breath sounds, no respiratory distress, no accessory muscle use Cardiovascular: no edema, no gallop, no JVD, no murmur, + irregularly irregular Abdomen: normal bowel sounds, non tender, soft Extremities: normal range of motion, normal inspection, no pedal edema, + pertinent finding (tenderness on palpating dorsalis pedis and posterior tibial) 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 Patient failed outpatient treatment including 5 day course of Azithromycin. Patient undergoing breathing treatments and prednisone tx. Patient was found to have a INR of 3.0 today. In the ED warfarin was held, restarted on boudreaux and following INR closely. Will adjust insulin accordingly for labile blood glucose on steroids. Physical therapy recommends home health PT at discharge. Acute on chronic COPD exacerbation: -Influenza positive -No home O2 requirement -DuoNebs QID and PRN for SOB/wheezing, incentive spirometer, flutter valve -Prednisone PO 50mg daily, 5 day course (day 2) -Mucinex -Awaiting cultures; blood, sputum: urine prelim shows Providnecia rettgeri and GNB -CXR unremarkable, but the patient has rales bilaterally UTI -1 gram of Rocephin in the ED -ceftriaxone continued on boudreaux - urine cx prelim shows Providnecia rettgeri and GNB; covered by rocephin AFIB -INR of 3.0 -Patient given 5mg of Coumadin yesterday, previously on 10mg w 1 day of 15mg -7.5 given today -Follow daily INR CAD -ASA, Imdur, nitro -EKG with chest pain CHF -Lasix 40 daily HLD -Continue Lipitor 40 T2DM -last hgbA1c 11.1% in 04/2017: -Lantus/novolog titration CKD stage III -baseline Cr 1.6 -Cr bumped to 1.81 (from 1.56), BUN 39 -Gentle rehydration at 75 ml/hr started Alzheimer's disease -Continue Namenda BPH w/ urinary retention- does self catheterizations: - UA pending - Proscar and Flomax Anxiety, depression -Zoloft GERD, GI prophylaxis -Zantac DVT prophylaxis: Coumadin Code status: LEVEL III, FULL, NO VENT Dispo: med/surg: droplet precaution Resident Physician Supervision Note: I was present with the resident during the history and exam. I discussed the case with the resident and agree with the findings and plan as documented in the note. Any exceptions or clarifications are listed here: PLAN 1) Tamiflu renally dosed. 2) Tapering PO prednisone. 3) Adjust antibiotics based on urine culture when completed. 4) Gentle fluids in light of rising Cr and no signs of failure. 5) PT Documented By: Hadley Barahona Resident Tracking Resident Involvement: Resident Care Provided Care Provided: Adult Hospital Medicine
[2017-10-15] MEDS: CEFTRIAXONE SOD INJ 1 GM in DEXTROSE 5% ADD-VANTAGE 50ML 50 ML IV SCH (20:48)
[2017-10-15] MEDS: TAMSULOSIN HCL 0.4 MG CAP PO SCH (20:50)
[2017-10-15] MEDS: ATORVASTATIN 40 MG TAB PO SCH (20:51)
[2017-10-15] MEDS: RANITIDINE HCL 150 MG TAB PO SCH (20:52)
[2017-10-15] MEDS: INSULIN GLARGINE SOLOSTAR 100 UNITS/ML 3 ML PEN SC SCH (20:58)
[2017-10-15] MEDS ORDERED: SODIUM CHLORIDE 0.65% NA SOLN 45 ML (OCEAN) ONE (22:09)
[2017-10-16] VITALS (9 sets, daily range): BP systolic 123–158; BP diastolic 71–94; PULSE 60–77; TEMP 36.5–37.1; O2SAT 94–97
[2017-10-16 07:34] LABS: HEMATOCRIT 36.1 % (42-52); HEMOGLOBIN 12.4 g/dL (14.0-18.0); MEAN CELL VOLUME 87.6 fL (80-100); MEAN CORPUSCULAR HEMOGLOBIN 30.1 pg (25-34); MEAN CORPUSCULAR HGB CONC 34.3 g/dl (32-36); MEAN PLATELET VOLUME 9.9 fL (7.4-10.4); PLATELET COUNT 183 K/uL (130-400); RED CELL DISTRIBUTION WIDTH SD 44.5 fL (36.4-46.3); WHITE BLOOD COUNT 9.93 K/uL (4.8-10.8)
[2017-10-16] MEDS: ALBUT/IPRATROP 3MG/0.5MG NEB 3 ML VIAL INH SCH ×4 (07:39→19:14)
[2017-10-16] MEDS: SODIUM CHLORIDE 0.9% 1000ML 1,000 ML IV SCH ×2 (07:45→20:09)
[2017-10-16 08:00] LABS: INR 2.7 (0.9-1.1)
[2017-10-16 08:06] LABS: CALCIUM 8.1 mg/dl (8.5-10.1); CREATININE 1.56 mg/dl (0.60-1.40); POTASSIUM 3.9 mmol/L (3.5-5.1)
[2017-10-16] MEDS: ASPIRIN 81 MG ECTAB PO SCH (08:56)
[2017-10-16] MEDS: GUAIFENESIN 600 MG TABCR PO SCH ×2 (08:57→20:17)
[2017-10-16] MEDS: METOPROLOL TARTRATE 25 MG TAB PO SCH ×2 (08:57→20:16)
[2017-10-16] MEDS: ISOSORBIDE MONONITRATE 60 MG TABCR PO SCH (08:57)
[2017-10-16] MEDS: SERTRALINE HCL 50 MG TAB PO SCH (08:57)
[2017-10-16] MEDS: NITROGLYCERIN 0.2 MG/HR PATCH TD SCH (08:58)
[2017-10-16] MEDS: MAGNESIUM OXIDE 400 MG TAB PO SCH ×2 (08:58→20:11)
[2017-10-16] MEDS: MEMANTINE 10 MG TAB PO SCH ×2 (08:58→20:15)
[2017-10-16] MEDS: FUROSEMIDE 40 MG TAB PO SCH (08:59)
[2017-10-16] MEDS: FLUTICASONE/SALMETEROL 250/50 (ADVAIR) 14 PUFF/1 INHALER INH SCH ×2 (08:59→20:09)
[2017-10-16] MEDS: FINASTERIDE 5 MG TAB PO SCH (08:59)
[2017-10-16] MEDS: INSULIN ASPART 100 UNITS/ML 3 ML PEN SC SCH ×4 (09:02→20:20)
[2017-10-16] MEDS: INSULIN HUMAN NPH SC SCH (09:04)
[2017-10-16] MEDS: OSELTAMIVIR PHOSPHATE SUSP 30 MG/5 ML UDP PO SCH ×2 (09:17→20:22)
--- NOTE | 2017-10-16 15:59 | Family Medicine Progress Note ---
Progress Note Date of Service Oct 16, 2017. Subjective Pt evaluation today including: conversation w/ patient, physical exam, chart review, lab review Pain: Discomfort in lower limbs but denies pain PO Intake: Tolerating well Voiding: requires PRN straight cath Patient states he thinks he is doing a little better with his breathing today. He states he is anxious to get home and smoke his "special oils" Constitutional: + weakness, + fatigue Respiratory: + cough, + sputum, + shortness of breath, + dyspnea on exertion Cardiovascular: + orthopnea Neurologic: + memory loss, + numbness/tingling All Other Systems: Reviewed and Negative Medications Current Inpatient Medications Medications (Trade) Dose Ordered Sig/Lei Route Start Time Stop Time Status Last Admin Dose Admin Acetaminophen (Tylenol Tab) 650 mg Q4H PRN PO 10/13/17 16:30 11/12/17 16:29 Al Hydrox/Mg Hydrox/Simethicone (Maalox Max Susp) 15 ml Q4H PRN PO 10/13/17 16:30 11/12/17 16:29 Magnesium Hydroxide (Milk Of Magnesia Susp) 30 ml Q6H PRN PO 10/13/17 16:30 11/12/17 16:29 Polyethylene (Miralax Powder Packet) 17 gm DAILY PRN PO 10/13/17 16:30 11/12/17 16:29 Ondansetron HCl (Zofran Inj) 4 mg Q6H PRN IV 10/13/17 16:30 11/12/17 16:29 Aspirin (Ecotrin Tab) 81 mg DAILY PO 10/14/17 09:00 11/13/17 08:59 10/16/17 08:56 81 MG Atorvastatin Calcium (Lipitor Tab) 40 mg HS PO 10/13/17 21:00 11/12/17 20:59 10/15/17 20:51 40 MG Finasteride (Proscar Tab) 5 mg DAILY PO 10/14/17 09:00 11/13/17 08:59 10/16/17 08:59 5 MG Salmeterol Xinafoate/ Fluticasone (Advair Diskus 250/50 Inh) 1 puff BID INH 10/13/17 21:00 11/12/17 20:59 10/16/17 08:59 1 PUFF Furosemide (Lasix Tab) 40 mg DAILY PO 10/14/17 09:00 11/13/17 08:59 10/16/17 08:59 40 MG Isosorbide Mononitrate (Imdur Ext Rel Tab) 60 mg DAILY PO 10/14/17 09:00 11/13/17 08:59 10/16/17 08:57 60 MG Memantine (Namenda Tab) 10 mg BID PO 10/13/17 21:00 11/12/17 20:59 10/16/17 08:58 10 MG Metoprolol Tartrate (Lopressor Tab) 25 mg BID PO 10/13/17 21:00 11/12/17 20:59 10/16/17 08:57 25 MG Ranitidine HCl (zANTac TAB) 300 mg HS PO 10/13/17 21:00 11/12/17 20:59 10/15/17 20:52 300 MG Sertraline HCl (Zoloft Tab) 50 mg DAILY PO 10/14/17 09:00 11/13/17 08:59 10/16/17 08:57 50 MG Tamsulosin HCl (Flomax Cap) 0.8 mg QPM PO 10/13/17 21:00 11/12/17 20:59 10/15/17 20:50 0.8 MG Insulin Glargine (Lantus Solostar Pen) 30 units QPM SC 10/14/17 21:00 11/13/17 20:59 10/15/17 20:58 30 UNITS Warfarin Sodium (Coumadin Tab) 10 mg Mo@1600 PO 10/17/17 16:00 11/16/17 15:59 Warfarin Sodium (Coumadin Tab) 15 mg SuTuWeThFrSa@1600 PO 10/14/17 16:00 11/13/17 15:59 Future Hold Nitroglycerin (Nitro-Dur 0.2 Mg/Hr Patch) 1 patch QAM TD 10/14/17 09:00 11/13/17 08:59 10/16/17 08:58 1 PATCH Miscellaneous (Remove Nitro-Dur Patch) 1 ea DAILY@21 N/A 10/13/17 21:00 11/12/17 20:59 10/15/17 21:08 1 EA Magnesium Oxide (Mag-Ox Tab) 400 mg BID PO 10/13/17 21:00 11/12/17 20:59 10/16/17 08:58 400 MG Albuterol/ Ipratropium (Duoneb) 3 ml QIDR INH 10/13/17 20:00 11/12/17 19:59 10/16/17 15:24 3 ML Insulin Aspart (novoLOG ASPART) SLIDING SCALE G... ACHS SC 10/13/17 16:30 11/12/17 16:29 10/16/17 12:37 7 UNITS Guaifenesin (Mucinex Contr Rel Tab) 600 mg Q12 PO 10/13/17 21:00 11/12/17 20:59 10/16/17 08:57 600 MG Ceftriaxone Sodium 1 gm/ Dextrose 50 ml @ 100 mls/hr Q24H IV 10/13/17 21:00 10/23/17 20:59 10/15/17 20:48 100 MLS/HR Oseltamivir Phosphate (Tamiflu Susp) 30 mg BID PO 10/13/17 21:00 10/18/17 20:59 10/16/17 09:17 30 MG Prednisone (PredniSONE TAB) 50 mg DAILY PO 10/15/17 09:00 10/19/17 08:59 10/16/17 08:58 50 MG Insulin Human NPH (novoLIN-N NPH) 50 units QD@08 SC 10/15/17 08:00 11/14/17 07:59 10/16/17 09:04 50 UNITS Sodium Chloride 1,000 ml @ 75 mls/hr [id number] IV 10/15/17 16:45 11/14/17 16:44 10/16/17 07:45 75 MLS/HR Warfarin Sodium (Coumadin Tab) 7.5 mg TODAY@1600 ONCE PO 10/16/17 16:00 10/16/17 16:01 Objective Vital Signs Date Time Temp Pulse Resp B/P (MAP) Pulse Ox O2 Delivery O2 Flow Rate FiO2 10/16/17 15:24 74 16 95 Room Air 10/16/17 14:45 36.5 68 20 123/82 (96) 95 Room Air 10/16/17 11:26 68 16 97 Room Air 10/16/17 07:45 Room Air 10/16/17 07:39 77 16 96 Room Air 10/16/17 06:54 36.5 60 18 149/71 (97) 96 Room Air 10/16/17 00:15 Room Air 10/15/17 23:45 36.4 61 20 143/64 (90) 95 Room Air 10/15/17 19:38 74 16 96 Room Air Physical Exam General Appearance: WD/WN, no apparent distress Eyes: normal inspection, PERRL, EOMI, sclerae normal ENT: hearing grossly normal, pharynx normal Neck: supple, no JVD, no carotid bruits, trachea midline Respiratory/Chest: chest non-tender, lungs clear, normal breath sounds, no respiratory distress, no accessory muscle use Cardiovascular: no edema, no gallop, no JVD, no murmur, + irregularly irregular Abdomen: normal bowel sounds, non tender, soft, + distended Extremities: normal inspection, no pedal edema, no calf tenderness, + pertinent finding (tenderness to palpation of feet) 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 Patient failed outpatient treatment including 5 day course of Azithromycin. Patient undergoing breathing treatments and prednisone tx. Patient was found to have a INR of 2.5 today. In the ED warfarin was held, restarted on boudreaux and following INR closely. Will adjust insulin accordingly for labile blood glucose on steroids. Physical therapy recommends home health PT at discharge. Acute on chronic COPD exacerbation: -Influenza positive -No home O2 requirement -DuoNebs QID and PRN for SOB/wheezing, incentive spirometer, flutter valve -Prednisone PO 50mg daily, 5 day course (day 3) -Mucinex -Awaiting cultures; blood, sputum: urine prelim shows Providnecia rettgeri and Proteus pennerbi -CXR unremarkable, but the patient has rales bilaterally UTI -1 gram of Rocephin in the ED -ceftriaxone continued on boudreaux - urine shows Providnecia rettgeri and Proteus pennerbi; rocephin converted to 250 cipro BID x 5 days, day 0.5 - Expect INR to rise with cipro; continue to monitor and adjust warfarin prn AFIB -INR of 2.5 -Patient given 7.5mg of Coumadin yesterday, previously on 10mg w 1 day of 15mg -7.5 given today -Follow daily INR and be cautious of cipro affecting INR CAD -ASA, Imdur, nitro -EKG with chest pain CHF -Lasix 40 daily HLD -Continue Lipitor 40 T2DM -last hgbA1c 11.1% in 04/2017: -Lantus/novolog titration on steroids -Sugars have been labile, adjusted range to 110-150, CF 15, Cr 1:5 CKD stage III -baseline Cr 1.6 -Cr returned to 1.56, BUN 41 -Gentle rehydration at 75 ml/hr started; monitor BMP and alter accordingly Alzheimer's disease -Continue Namenda BPH w/ urinary retention- does self catheterizations: - UA as above - Proscar and Flomax - Patient uses triamcinolone cream at home, leftover for phimosis Rx in 2015. Restarted in hospital per pt. request, 0.1% 2-3x daily prn Anxiety, depression -Zoloft GERD, GI prophylaxis -Zantac DVT prophylaxis: Coumadin Code status: LEVEL III, FULL, NO VENT Dispo: med/surg: droplet precaution Resident Physician Supervision Note: I was present the resident physician during the history and exam. I discussed the case with the resident and agree with the findings and plan as documented in the note. IMPRESSION 1) influenza A in the setting of chronic lung disease 2) urinary tract infection in the setting of history of urinary retention, dependent on self-catheterization 3) coronary artery disease, stable 4) atrial fibrillation, fluctuating INR PLAN 1) Tamiflu renally dosed. 2) Tapering PO prednisone. 3) discontinue Rocephin and start ciprofloxacin 250 mg by mouth twice a day 4) Gentle fluids as chronic continues to improve 5) closely monitor INR in light of supratherapeutic INR upon admission and recent addition of Cipro 6) physical therapy; there is a degree of pre-existing debility and deconditioning with his acute illness which raises the question if he needs inpatient rehabilitation following his acute hospitalization. Documented By: Hadley Barahona Resident Tracking Resident Involvement: Resident Care Provided Care Provided: Adult Hospital Medicine
[2017-10-16] MEDS ORDERED: WARFARIN SOD 7.5 MG TAB PO ONE (16:00)
[2017-10-16] MEDS ORDERED: TRIAMCINOLONE ACET 0.1% CR 15 GM TUBE EXT PRN (16:30)
[2017-10-16] MEDS: CIPROFLOXACIN 250 MG TAB PO SCH (17:20)
[2017-10-16] MEDS: RANITIDINE HCL 150 MG TAB PO SCH (20:15)
[2017-10-16] MEDS: TAMSULOSIN HCL 0.4 MG CAP PO SCH (20:16)
[2017-10-16] MEDS: ATORVASTATIN 40 MG TAB PO SCH (20:17)
[2017-10-16] MEDS: INSULIN GLARGINE SOLOSTAR 100 UNITS/ML 3 ML PEN SC SCH (20:20)
[2017-10-17] VITALS (8 sets, daily range): BP systolic 112–154; BP diastolic 64–91; PULSE 52–81; TEMP 36.3–36.5; O2SAT 93–97
[2017-10-17] MEDS: ALBUT/IPRATROP 3MG/0.5MG NEB 3 ML VIAL INH SCH ×4 (06:54→19:45)
[2017-10-17] MEDS: METOPROLOL TARTRATE 25 MG TAB PO SCH ×2 (08:29→21:39)
[2017-10-17] MEDS: FLUTICASONE/SALMETEROL 250/50 (ADVAIR) 14 PUFF/1 INHALER INH SCH ×2 (08:33→21:36)
[2017-10-17] MEDS: CIPROFLOXACIN 250 MG TAB PO SCH ×2 (08:33→21:38)
[2017-10-17] MEDS: MEMANTINE 10 MG TAB PO SCH ×2 (08:34→21:38)
[2017-10-17] MEDS: ASPIRIN 81 MG ECTAB PO SCH (08:34)
[2017-10-17] MEDS: GUAIFENESIN 600 MG TABCR PO SCH ×2 (08:34→21:39)
[2017-10-17] MEDS: ISOSORBIDE MONONITRATE 60 MG TABCR PO SCH (08:34)
[2017-10-17] MEDS: OSELTAMIVIR PHOSPHATE SUSP 30 MG/5 ML UDP PO SCH ×2 (08:34→21:37)
[2017-10-17] MEDS: INSULIN ASPART 100 UNITS/ML 3 ML PEN SC SCH ×4 (08:36→21:48)
[2017-10-17] MEDS: INSULIN HUMAN NPH SC SCH (08:37)
[2017-10-17] MEDS: FINASTERIDE 5 MG TAB PO SCH (08:38)
[2017-10-17] MEDS: FUROSEMIDE 40 MG TAB PO SCH (08:38)
[2017-10-17] MEDS: NITROGLYCERIN 0.2 MG/HR PATCH TD SCH (08:38)
[2017-10-17] MEDS: SERTRALINE HCL 50 MG TAB PO SCH (08:38)
[2017-10-17] MEDS: MAGNESIUM OXIDE 400 MG TAB PO SCH ×2 (08:38→21:37)
[2017-10-17] MEDS: SODIUM CHLORIDE 0.9% 1000ML 1,000 ML IV SCH (08:45)
[2017-10-17] MEDS ORDERED: WARFARIN SOD 10 MG TAB PO SCH (16:00)
[2017-10-17] MEDS ORDERED: WARFARIN SOD 7.5 MG TAB PO SCH (16:00)
--- NOTE | 2017-10-17 17:16 | Family Medicine Progress Note ---
Progress Note Date of Service Oct 17, 2017. Subjective Patient reports feeling better, less SOB. Patient does report pain in his penis and hematuria following removal of the catheter. Patient has a PMH of self- catheterization. Constitutional: No fever, No chills Respiratory: + dyspnea on exertion, No cough, No sputum, No shortness of breath Cardiovascular: No chest pain, No palpitations Abdomen: No pain, No nausea, No vomiting, No diarrhea Male : + hematuria, No dysuria Medications Current Inpatient Medications Medications (Trade) Dose Ordered Sig/Lei Route Start Time Stop Time Status Last Admin Dose Admin Acetaminophen (Tylenol Tab) 650 mg Q4H PRN PO 10/13/17 16:30 11/12/17 16:29 Al Hydrox/Mg Hydrox/Simethicone (Maalox Max Susp) 15 ml Q4H PRN PO 10/13/17 16:30 11/12/17 16:29 Magnesium Hydroxide (Milk Of Magnesia Susp) 30 ml Q6H PRN PO 10/13/17 16:30 11/12/17 16:29 Polyethylene (Miralax Powder Packet) 17 gm DAILY PRN PO 10/13/17 16:30 11/12/17 16:29 Ondansetron HCl (Zofran Inj) 4 mg Q6H PRN IV 10/13/17 16:30 11/12/17 16:29 Aspirin (Ecotrin Tab) 81 mg DAILY PO 10/14/17 09:00 11/13/17 08:59 10/17/17 08:34 81 MG Atorvastatin Calcium (Lipitor Tab) 40 mg HS PO 10/13/17 21:00 11/12/17 20:59 10/16/17 20:17 40 MG Finasteride (Proscar Tab) 5 mg DAILY PO 10/14/17 09:00 11/13/17 08:59 10/17/17 08:38 5 MG Salmeterol Xinafoate/ Fluticasone (Advair Diskus 250/50 Inh) 1 puff BID INH 10/13/17 21:00 11/12/17 20:59 10/17/17 08:33 1 PUFF Furosemide (Lasix Tab) 40 mg DAILY PO 10/14/17 09:00 11/13/17 08:59 10/17/17 08:38 40 MG Isosorbide Mononitrate (Imdur Ext Rel Tab) 60 mg DAILY PO 10/14/17 09:00 11/13/17 08:59 10/17/17 08:34 60 MG Memantine (Namenda Tab) 10 mg BID PO 10/13/17 21:00 11/12/17 20:59 10/17/17 08:34 10 MG Metoprolol Tartrate (Lopressor Tab) 25 mg BID PO 10/13/17 21:00 11/12/17 20:59 10/16/17 20:16 25 MG Ranitidine HCl (zANTac TAB) 300 mg HS PO 10/13/17 21:00 11/12/17 20:59 10/16/17 20:15 300 MG Sertraline HCl (Zoloft Tab) 50 mg DAILY PO 10/14/17 09:00 11/13/17 08:59 10/17/17 08:38 50 MG Tamsulosin HCl (Flomax Cap) 0.8 mg QPM PO 10/13/17 21:00 11/12/17 20:59 10/16/17 20:16 0.8 MG Insulin Glargine (Lantus Solostar Pen) 30 units QPM SC 10/14/17 21:00 11/13/17 20:59 10/16/17 20:20 30 UNITS Warfarin Sodium (Coumadin Tab) 10 mg Mo@1600 PO 10/17/17 16:00 11/16/17 15:59 Future Hold Warfarin Sodium (Coumadin Tab) 15 mg SuTuWeThFrSa@1600 PO 10/14/17 16:00 11/13/17 15:59 Future Hold Nitroglycerin (Nitro-Dur 0.2 Mg/Hr Patch) 1 patch QAM TD 10/14/17 09:00 11/13/17 08:59 10/17/17 08:38 1 PATCH Miscellaneous (Remove Nitro-Dur Patch) 1 ea DAILY@21 N/A 10/13/17 21:00 11/12/17 20:59 10/16/17 20:14 1 EA Magnesium Oxide (Mag-Ox Tab) 400 mg BID PO 10/13/17 21:00 11/12/17 20:59 10/17/17 08:38 400 MG Albuterol/ Ipratropium (Duoneb) 3 ml QIDR INH 10/13/17 20:00 3/3/18 19:59 10/17/17 15:28 3 ML Insulin Aspart (novoLOG ASPART) SLIDING SCALE G... ACHS SC 10/13/17 16:30 11/12/17 16:29 10/17/17 13:11 12 UNITS Guaifenesin (Mucinex Contr Rel Tab) 600 mg Q12 PO 10/13/17 21:00 11/12/17 20:59 10/17/17 08:34 600 MG Oseltamivir Phosphate (Tamiflu Susp) 30 mg BID PO 10/13/17 21:00 10/18/17 20:59 10/17/17 08:34 30 MG Prednisone (PredniSONE TAB) 50 mg DAILY PO 10/15/17 09:00 10/19/17 08:59 10/17/17 08:35 50 MG Insulin Human NPH (novoLIN-N NPH) 50 units QD@08 SC 10/15/17 08:00 11/14/17 07:59 10/17/17 08:37 50 UNITS Sodium Chloride 1,000 ml @ 75 mls/hr [id number] IV 10/15/17 16:45 11/14/17 16:44 10/17/17 08:45 75 MLS/HR Ciprofloxacin (Ciprofloxacin Tab) 250 mg Q12 PO 10/16/17 18:00 10/21/17 17:59 10/17/17 08:33 250 MG Triamcinolone Acetonide (Kenalog 0.1% Cream) 1 appln [id number] PRN EXT 10/16/17 16:30 11/15/17 16:29 Warfarin Sodium (Coumadin Tab) 7.5 mg DAILY@16 PO 10/17/17 16:00 11/16/17 15:59 10/17/17 15:55 7.5 MG Objective Vital Signs Date Time Temp Pulse Resp B/P (MAP) Pulse Ox O2 Delivery O2 Flow Rate FiO2 10/17/17 16:00 93 Room Air 10/17/17 15:30 71 16 93 Room Air 10/17/17 14:52 36.3 79 18 112/64 (80) 94 Room Air 10/17/17 11:32 54 16 97 Room Air 10/17/17 08:00 Room Air 10/17/17 06:54 56 16 96 Room Air 10/17/17 06:50 36.4 52 20 147/70 (95) 97 Room Air 10/17/17 00:00 Room Air 10/16/17 22:53 37.1 75 18 144/94 (111) 95 Room Air 10/16/17 20:15 73 158/85 (109) 94 Room Air 10/16/17 19:16 66 16 94 Room Air Physical Exam General Appearance: WD/WN, no apparent distress Respiratory/Chest: chest non-tender, lungs clear, normal breath sounds, no respiratory distress Cardiovascular: regular rate, rhythm, no edema, no murmur Abdomen: normal bowel sounds, non tender, soft Neurologic/Psychiatric: alert, normal mood/affect, oriented x 3 Skin: normal color, warm/dry, no rash, + pertinent finding (penile foreskin adhered consistent with phimosis, hypopigmentation seen at the tip of the penis ) Laboratory Results Test 10/17/17 16:28 Bedside Glucose 137 mg/dl (70-99) Assessment and Plan 77 yo male presents with respiratory distress 2/2 to COPD exacerbation in the setting of influenza. Patient failed outpatient treatment including 5 day course of Azithromycin. Patient undergoing breathing treatments and prednisone tx. In the ED warfarin was held, restarted on boudreaux and following INR closely. Will adjust insulin accordingly for labile blood glucose on steroids. Physical therapy recommends home health PT at discharge. 2/5 Patient has less SOB with exertion. Patient complains of hematuria following gonzalez removal. Will follow tonight. Patient will possibly discharged tomorrow with home health services. Acute on chronic COPD exacerbation secondary to influenza -DuoNebs QID and PRN for SOB/wheezing, incentive spirometer, flutter valve -Prednisone PO 50mg daily, 5 day course (day 3) -Finished tamiflu -Sputum culture - normal kaila -CXR unremarkable, UTI -1 gram of Rocephin in the ED - urine shows Providnecia rettgeri and Proteus pennerbi; rocephin converted to 250 cipro BID x 5 days, day 0.5 - Expect INR to rise with cipro; continue to monitor and adjust warfarin prn AFIB -INR of 2.5 -Patient given 7.5mg of Coumadin yesterday, previously on 10mg w 1 day of 15mg -7.5 given today -Follow daily INR and be cautious of cipro affecting INR CAD -ASA, Imdur, nitro -EKG with chest pain CHF -Lasix 40 daily HLD -Continue Lipitor 40 T2DM -last hgbA1c 11.1% in 04/2017: -Lantus/novolog titration on steroids -Sugars have been labile, adjusted range to 110-150, CF 15, Cr 1:5 CKD stage III -baseline Cr 1.6 -Dc'ed IVF Alzheimer's disease -Continue Namenda BPH w/ urinary retention- does self catheterizations: - Getting treated for UTI - Proscar and Flomax - Patient uses triamcinolone cream at home, leftover for phimosis Rx in 2015. Restarted in hospital per pt. request, 0.1% 2-3x daily prn Anxiety, depression -Zoloft GERD, GI prophylaxis -Zantac DVT prophylaxis: Coumadin Code status: LEVEL III, FULL, NO VENT Dispo: med/surg: droplet precaution Reviewed: Pt Seen/Exam by Me History breathing well. wondering when he will be discharged Constitutional: denies: fever Respiratory: negative: short of breath Cardiovascular: denies chest pain General Appearance: no apparent distress Respiratory: lungs clear, no respiratory distress Cardiovascular: regular rate, rhythm Neurologic/Psychiatric: alert, oriented x 3 Skin Characteristics: warm/dry Assessment/Plan Resident Physician Supervision Note: I independently interviewed and examined the patient and verified the lema history and physical, reviewed labs and image studies, discussed the case with the resident Dr. Wise and agree with the findings and care plan.
[2017-10-17] MEDS ORDERED: NURSING VERBAL MED ORDER ONE (18:00)
[2017-10-17] MEDS: TAMSULOSIN HCL 0.4 MG CAP PO SCH (21:38)
[2017-10-17] MEDS: INSULIN GLARGINE SOLOSTAR 100 UNITS/ML 3 ML PEN SC SCH (21:48)
[2017-10-17] MEDS: RANITIDINE HCL 150 MG TAB PO SCH (21:53)
[2017-10-17] MEDS: ATORVASTATIN 40 MG TAB PO SCH (21:53)
[2017-10-18 07:01] VITALS: PULSE 56; O2SAT 96
[2017-10-18] MEDS: ALBUT/IPRATROP 3MG/0.5MG NEB 3 ML VIAL INH SCH ×2 (07:01→11:10)
[2017-10-18 07:23] LABS: HEMATOCRIT 38.1 % (42-52); MEAN CORPUSCULAR HGB CONC 34.1 g/dl (32-36); MEAN PLATELET VOLUME 10.4 fL (7.4-10.4); PLATELET COUNT 192 K/uL (130-400); RED CELL DISTRIBUTION WIDTH CV 13.9 % (11.5-14.5); RED CELL DISTRIBUTION WIDTH SD 45.3 fL (36.4-46.3); WHITE BLOOD COUNT 8.98 K/uL (4.8-10.8)
[2017-10-18 07:32] LABS: INR 2.4 (0.9-1.1)
[2017-10-18] MEDS ORDERED: GLUCOSE 10 TABS/TUBE ONE (07:41)
[2017-10-18] MEDS: FLUTICASONE/SALMETEROL 250/50 (ADVAIR) 14 PUFF/1 INHALER INH SCH (07:46)
[2017-10-18] MEDS: GUAIFENESIN 600 MG TABCR PO SCH (07:46)
[2017-10-18] MEDS: CIPROFLOXACIN 250 MG TAB PO SCH (07:47)
[2017-10-18] MEDS: FINASTERIDE 5 MG TAB PO SCH (07:47)
[2017-10-18] MEDS: FUROSEMIDE 40 MG TAB PO SCH (07:47)
[2017-10-18] MEDS: MAGNESIUM OXIDE 400 MG TAB PO SCH (07:48)
[2017-10-18] MEDS: MEMANTINE 10 MG TAB PO SCH (07:48)
[2017-10-18] MEDS: METOPROLOL TARTRATE 25 MG TAB PO SCH (07:48)
[2017-10-18 07:52] VITALS: BP 144/80; PULSE 57; TEMP 36.3; O2SAT 96
[2017-10-18 08:03] LABS: CREATININE 1.52 mg/dl (0.60-1.40); POTASSIUM 3.6 mmol/L (3.5-5.1)
[2017-10-18] MEDS: OSELTAMIVIR PHOSPHATE SUSP 30 MG/5 ML UDP PO SCH (08:49)
[2017-10-18] MEDS: ASPIRIN 81 MG ECTAB PO SCH (08:50)
[2017-10-18] MEDS: SERTRALINE HCL 50 MG TAB PO SCH (08:50)
[2017-10-18] MEDS: ISOSORBIDE MONONITRATE 60 MG TABCR PO SCH (08:50)
[2017-10-18] MEDS: INSULIN ASPART 100 UNITS/ML 3 ML PEN SC SCH ×2 (08:51→12:42)
[2017-10-18] MEDS: NITROGLYCERIN 0.2 MG/HR PATCH TD SCH (08:54)
[2017-10-18 10:00] VITALS: Ht 180.3 cm; Wt 125.1 kg
[2017-10-18] MEDS ORDERED: CMD75 PO ×2 (10:35)
[2017-10-18] MEDS ORDERED: PRED10TA PO ×2 (10:35)
[2017-10-18] MEDS ORDERED: CIPR250T3 PO ×2 (10:49)
--- NOTE | 2017-10-18 10:53 | Discharge Instructions ---
Discharge Instructions Date of Service Oct 18, 2017. Admission Reason for Admission: Copd Exacerbation Discharge Discharge Diagnosis / Problem: COPD exacerbation Discharge Goals Goal(s): Decrease discomfort, Improve function Activity Recommendations Activity Limitations: resume your previous activity . Instructions / Follow-Up Instructions / Follow-Up Mr. Townsend, You came to [facility] and was found to have Influenza, a virus that make you feel very sick and run down. In your situation, it has also worsened your COPD and made it more difficult for you to breathe. The goal of your stay was to treat your COPD. Since admission, it has stabilized. In addition to your COPD, you were also found to have issue with your medication called Warfarin, a blood thinner. When we did a blood test, we found that your blood was too thin. We have decreased your dose and we would like you to have this closely followed and adjusted by your primary care doctor in the outpatient setting. You were also being treated for a urinary tract infection while in the hospital with a antibiotic called ciprofloxacin. Continue to take this medication for 5 more days. We are sending you home with the following medications: 1. Prednisone taper over 9 days for your COPD; Take in the morning day1 40mg day2 40mg day3 40mg day4 20mg day5 20mg day6 20mg day7 10mg day8 10mg day9 10mg 2. Warfarin 7.5mg once daily 3. Ciprofloxacin 250 twice daily for 5 more days. Please follow up with your primary care doctor this week and have a blood work drawn to check a PT INR level. Current Hospital Diet Patient's current hospital diet: AHA Diet (Heart Healthy), Diabetes Type 2 Diet Discharge Diet Recommended Diet: AHA Diet (Heart Healthy), Diabetes Type 2 Diet Pending Studies Studies pending at discharge: no Laboratory Results Hemoglobin A1c Test 10/13/17 17:07 Range/Units Estimated Average Glucose 206 mg/dl Hemoglobin A1c 8.8 H 4.5-5.6 % Medical Emergencies . Who to Call and When: Medical Emergencies: If at any time you feel your situation is an emergency, please call 911 immediately. . Non-Emergent Contact Non-Emergency issues call your: Primary Care Provider . . "Provider Documentation" section prepared by Rahul Wise. . VTE Core Measure Inpt VTE Proph given/why not?: Warfarin (Coumadin)
[2017-10-18 11:10] VITALS: PULSE 79; O2SAT 95
[2017-10-18 11:14] VITALS: BP 144/80; PULSE 57; TEMP 36.3; O2SAT 96
--- NOTE | 2017-10-18 11:15 | Discharge Summary ---
Discharge Summary Date of Service Oct 18, 2017. Discharge Summary Admission Date: Oct 13, 2017 at 14:20 Discharge Date: Oct 18, 2017 Discharge Disposition: Home with services Principal Diagnosis: COPD exacerbation Problems/Secondary Diagnoses: Influenza A Immunizations: Have You Had Influenza Vaccine: Yes Influenza Vaccine Date: Jun 12, 2010 History of Tetanus Vaccine?: Yes History of Pneumococcal: Yes History of Hepatitis B Vaccine: Unknown Discharge Exam Review of Systems: Constitutional: No fever, No chills, No sweats Respiratory: + cough, + dyspnea on exertion, No sputum, No wheezing, No shortness of breath Abdomen: No pain, No nausea, No vomiting Genitourinary - Male: + urinary retention, No hematuria Physical Exam: General Appearance: WD/WN, + obese Respiratory/Chest: chest non-tender, no respiratory distress, no accessory muscle use, + wheezing Cardiovascular: regular rate, rhythm, no edema, no murmur Abdomen / GI: normal bowel sounds, non tender, soft Neurologic/Psychiatric: alert, normal mood/affect, oriented x 3 Skin: normal color, warm/dry, no rash Hospital Course 77 yo male with PMH of COPD was found to have worsening symptoms in the setting of Influenza A. The patient was treated with IV steroids and transitioned to PO , 9 day taper in the outpatient. He was treated with Tamiflu. The patient was found to have supratherapuetic INR, >4 and was subsequently started on a lower dose of Warfarin, 7.5mg. INR was 2.4 at discharge. Patient has been instructed to follow up closely with PCP regarding adjustment in dosing and serial INR. The patient was also found to have a positive UA and was thus treated with Cipro 250 BID. At the time of discharge, he had 10 doses remaining. Patient culture positive for Providnecia rettgeri and Proteus pennerbi species. Patient has PMH of urinary retention. Pt self catheterizes himself. See problem list below for more information regarding hospitalization Acute on chronic COPD exacerbation: -Influenza positive - Treated with tamiflu. -No home O2 requirement -DuoNebs QID and PRN for SOB/wheezing, incentive spirometer, flutter valve -Prednisone PO 50mg daily -Mucinex -blood cultures no growth, urine prelim shows Providnecia rettgeri and Proteus pennerbi -CXR unremarkable, but the patient has rales bilaterally UTI -1 gram of Rocephin in the ED - urine shows Providnecia rettgeri and Proteus pennerbi; rocephin converted to 250 cipro BID x 5 days, day 0.5 - Expect INR to rise with cipro; continue to monitor and adjust warfarin prn AFIB -INR of 2.5 -Patient given 7.5mg of Coumadin yesterday, previously on 10mg w 1 day of 15mg -7.5 given today -Follow daily INR and be cautious of cipro affecting INR CAD -ASA, Imdur, nitro -EKG with chest pain CHF -Lasix 40 daily HLD -Continue Lipitor 40 T2DM -last hgbA1c 11.1% in 04/2017: -Lantus/novolog titration on steroids -Sugars have been labile, adjusted range to 110-150, CF 15, Cr 1:5 CKD stage III -baseline Cr 1.6 -Mt'ed IVF Alzheimer's disease -Continue Namenda BPH w/ urinary retention- does self catheterizations: - UA as above - Proscar and Flomax - Patient uses triamcinolone cream at home, leftover for phimosis Rx in 2015. Restarted in hospital per pt. request, 0.1% 2-3x daily prn Anxiety, depression -Zoloft GERD, GI prophylaxis -Zantac Code status: LEVEL III, FULL, NO VENT Total Time Spent: Greater than 30 minutes This includes examination of the patient, discharge planning, medication reconciliation, and communication with other providers. Discharge Instructions Please refer to the electronic Patient Visit Report (Discharge Instructions) for additional information. Additional Copies To Deidra Correa M.D. Reviewed: Pt Seen/Exam by Me History breathing ok. no chest pain, shortness of breath Constitutional: denies: fever Respiratory: negative: short of breath Cardiovascular: denies chest pain General Appearance: no apparent distress Respiratory: lungs clear, no respiratory distress Cardiovascular: regular rate, rhythm Neurologic/Psychiatric: alert, oriented x 3 Skin Characteristics: warm/dry Assessment/Plan Resident Physician Supervision Note: I independently interviewed and examined the patient and verified the lema history and physical, reviewed labs and image studies, discussed the case with the resident Dr. Wise and agree with the findings and care plan. Time spent in discharge 40 min
== END 2017-10-18 13:14 | disposition home health service (06) | DRG 699 ==
LOC: C.MED 14:20 → C.MS2W 22:06
PROVIDERS: ADMIT Internal Medicine; ATTEND Family Medicine
DX: T83.511A Infection and inflammatory reaction due to indwelling urethral catheter, initial encounter (principal); J44.1 Chronic obstructive pulmonary disease with (acute) exacerbation; I13.0 Hypertensive heart and chronic kidney disease with heart failure and stage 1 through stage 4 chronic kidney disease, or unspecified chronic kidney disease; I50.42 Chronic combined systolic (congestive) and diastolic (congestive) heart failure; N39.0 Urinary tract infection, site not specified; J10.1 Influenza due to other identified influenza virus with other respiratory manifestations; I25.10 Atherosclerotic heart disease of native coronary artery without angina pectoris; I48.91 Unspecified atrial fibrillation; N18.3 Chronic kidney disease, stage 3 (moderate); E78.5 Hyperlipidemia, unspecified; E11.22 Type 2 diabetes mellitus with diabetic chronic kidney disease; G30.9 Alzheimer's disease, unspecified; F02.80 Dementia in other diseases classified elsewhere, unspecified severity, without behavioral disturbance, psychotic disturbance, mood disturbance, and anxiety; N40.1 Benign prostatic hyperplasia with lower urinary tract symptoms; R33.8 Other retention of urine; F32.9 Major depressive disorder, single episode, unspecified; F41.9 Anxiety disorder, unspecified; E66.9 Obesity, unspecified; Z79.01 Long term (current) use of anticoagulants; Z79.4 Long term (current) use of insulin; Z79.82 Long term (current) use of aspirin; Z79.899 Other long term (current) drug therapy; Y84.6 Urinary catheterization as the cause of abnormal reaction of the patient, or of later complication, without mention of misadventure at the time of the procedure; Z95.1 Presence of aortocoronary bypass graft; Z95.5 Presence of coronary angioplasty implant and graft; Z88.5 Allergy status to narcotic agent; Z91.041 Radiographic dye allergy status; Z68.38 Body mass index [BMI] 38.0-38.9, adult

== ENCOUNTER → 2017-10-13 | Outpatient (CLI) | payer OTHER ==
[~2017-10-13] MED LIST changes: +AZITTAB PO; +CIPR250T3 PO; +CMD75 PO; +PRED10TA PO; +WARF-281 PO; -WARF6TAB5 PO
--- NOTE | 2017-10-13 12:26 | DIAGNOSTIC IMAGING REPORT ---
CHEST 2 VIEWS ROUTINE CLINICAL HISTORY: Shortness of breath. Failure of outpatient treatment. COMPARISON STUDY: 10/07/2017 FINDINGS: There are postsurgical changes of a midline sternotomy. The heart is mildly enlarged. There is a dual-lumen right-sided A-Port catheter. There is no focal pulmonary consolidation. There are no pleural effusions. There is no overt failure.[ IMPRESSION: Mild cardiomegaly. No acute findings. Electronically signed by: Nagi Springer M.D. 10/13/2017 12:24 PM Dictated Date/Time: 10/13/2017 12:24 PM
== END | disposition home or self-care (01) ==
LOC: C.RADPV 12:05
PROVIDERS: ATTEND Family Medicine
DX: Z78.9 Other specified health status (principal)

== ENCOUNTER → 2017-11-23 | Outpatient (CLI) | payer OTHER ==
[~2017-11-23] MED LIST changes: -AZITTAB PO; +CIPR250T3 PO; +CMD75 PO; -WARF-281 PO; -WARF10TA4 PO
[2017-11-23 12:33] LABS: INR 1.3 (0.9-1.1)
[2017-11-23 13:10] LABS: ALBUMIN 3.1 gm/dl (3.4-5.0); BLOOD UREA NITROGEN 20 mg/dl (7-18); CALCIUM 8.5 mg/dl (8.5-10.1); CARBON DIOXIDE 30 mmol/L (21-32); CREATININE 1.53 mg/dl (0.60-1.40); GLUCOSE 199 mg/dl (70-99); PHOSPHORUS 2.7 mg/dl (2.5-4.9); POTASSIUM 4.2 mmol/L (3.5-5.1); SODIUM 135 mmol/L (136-145)
== END | disposition home or self-care (01) ==
LOC: C.LABPVFM 08:17
PROVIDERS: ATTEND Family Medicine
DX: E11.29 Type 2 diabetes mellitus with other diabetic kidney complication (principal); E78.5 Hyperlipidemia, unspecified; N39.0 Urinary tract infection, site not specified; I48.91 Unspecified atrial fibrillation; I82.409 Acute embolism and thrombosis of unspecified deep veins of unspecified lower extremity

== ENCOUNTER 2017-12-19 07:29 | Emergency (ER) | payer OTHER ==
[~2017-12-19] VITALS: Ht 180.3 cm; Wt 130.5 kg
[~2017-12-19 07:29] MED LIST changes: -ASPI81TA28 PO; -FINA5TAB PO; -FRS/40 PO; -IPRA1AER2 INH; -ISOS60TA25 PO; -LPR25 PO; -NITR0.1S PO; -NITR50CA39 PO; -NMN10 PO; -NVLGI/PEN SC; -RANI300T2 PO; -TAMS0.4C38 PO; -ZLF/50 PO
[2017-12-19 07:30] VITALS: O2SAT 94; Ht 180.3 cm; Wt 130.5 kg
[2017-12-19 08:05] LABS: BASO % 0.3 %; BASO ABS # 0.03 K/uL (0-0.2); EOS % 1.4 %; EOS ABS # 0.14 K/uL (0-0.5); HEMATOCRIT 41.8 % (42-52); HEMOGLOBIN 14.3 g/dL (14.0-18.0); IG# 0.04 K/uL (0.00-0.02); LYMPH % 16.2 %; LYMPH ABS # 1.61 K/uL (1.2-3.4); MEAN CELL VOLUME 89.9 fL (80-100); MEAN CORPUSCULAR HEMOGLOBIN 30.8 pg (25-34); MEAN CORPUSCULAR HGB CONC 34.2 g/dl (32-36); NEUT % 73.7 %; NEUT ABS # 7.32 K/uL (1.4-6.5); PLATELET COUNT 181 K/uL (130-400); RED CELL DISTRIBUTION WIDTH CV 14.2 % (11.5-14.5); RED CELL DISTRIBUTION WIDTH SD 46.4 fL (36.4-46.3); WHITE BLOOD COUNT 9.94 K/uL (4.8-10.8)
[2017-12-19 08:13] LABS: INR 1.1 (0.9-1.1); PTT PATIENT 27.3 SECONDS (21.0-31.0)
[2017-12-19 08:17] LABS: ALBUMIN 3.6 gm/dl (3.4-5.0); CALCIUM 8.5 mg/dl (8.5-10.1); CREATININE 1.7 mg/dl (0.60-1.40)
[2017-12-19 08:22] LABS: CKMB 1.2 ng/ml (0.5-3.6); TOTAL PROTEIN 7.7 gm/dl (6.4-8.2)
--- NOTE | 2017-12-19 08:23 | DIAGNOSTIC IMAGING REPORT ---
CHEST ONE VIEW PORTABLE HISTORY: Short of breath. COMPARISON: Chest 10/13/2017. FINDINGS: Right jugular Port-A-Cath terminates in the SVC. The heart remains mildly enlarged. Mild diffuse interstitial thickening which has progressed. This may represent mild congestive change. Suspect trace bilateral pleural effusions. Left basilar linear densities favor subsegmental atelectasis. No pneumothorax. There are poststernotomy changes. IMPRESSION: Cardiomegaly mild interstitial pulmonary edema and trace bilateral pleural effusions. Electronically signed by: Jeramie Jacobs M.D. 12/19/2017 8:21 AM Dictated Date/Time: 12/19/2017 8:19 AM
[2017-12-19 08:44] LABS: INFLUENZA B ANTIGEN Neg for Influ B (NEG)
--- NOTE | 2017-12-19 09:47 | EMERGENCY ROOM VISIT NOTE ---
History Report prepared by Ketanibjeromy: Bryson Stone Under the Supervision of: Dr. Dao Brown D.O. First contact with patient: 07:50 Chief Complaint: RESPIRATORY PROBLEMS Stated Complaint: RESPIRATORY Nursing Triage Summary: Patient presents via ALS ambulance from home to room B07 with c/o sudden onset of difficulty breathing and wheezing at 0500 today He reports that he has had associated increased cough, also c/o nausea SOB at rest and worsens with exertion His grandson recently tested positive for influenza B Denies fever or chills History of Present Illness The patient is a 77 year old male who presents to the Emergency Room by EMS with complaints of constant shortness of breath beginning three hours ago. The patient has a history of COPD. He also complains of a cough and runny nose. He was given Zofran, Solu-Medrol, Albuterol and DuoNeb en route which improved his symptoms. The patient does not wear supplemental oxygen at home. He is being evaluated for possible night time oxygen. He notes that his grandson was diagnosed with influenza A recently. The patient denies sore throat. He states that he previously felt nauseous, but currently feels fine. Source of History: patient Onset: Three hours ago Quality: other (shortness of breath) Timing: constant Modifying Factors (Relieving): other (Zofran, Solu-Medrol, DuoNeb and Albuterol) Associated Symptoms: + cough, No sorethroat Note: Positive: runny nose. Review of Systems See HPI for pertinent positives & negatives. A total of 10 systems reviewed and were otherwise negative. Past Medical & Surgical Medical Problems: (1) Alzheimers disease (2) Anxiety (3) Asthma (4) Atrial fibrillation (5) CAD (coronary artery disease) (6) Chest pain (7) CHF (congestive heart failure) (8) CHF (congestive heart failure) (9) CHF exacerbation (10) Cholelithiasis (11) Colon cancer (12) COPD (chronic obstructive pulmonary disease) (13) Depression (14) Diab Mckenna Wo Compl, Type Ii Or Unspec Type, Not Uncntrld (15) DM (diabetes mellitus) (16) DVT (deep venous thrombosis) (17) Emphysema (18) Gross hematuria (19) Hypertension Nos (20) PA (myocardial infarction) (21) Mild sleep apnea (22) Peripheral neuropathy (23) Pure Hypercholesterolem (24) Shortness of breath Surgical Problems: (1) H/O hemicolectomy (2) History of coronary artery stent placement (3) Hx of CABG Family History Diabetes mellitus Heart disease Hypertension Social History Smoking Status: Current Some Day Smoker Alcohol Use: occasionally Drug Use: none Marital Status: Housing Status: lives with significant other Occupation Status: retired Current/Historical Medications Scheduled Aspirin (Aspirin Ec), 81 MG PO DAILY Atorvastatin (Lipitor), 40 MG PO HS Atorvastatin (Lipitor), 40 MG PO DAILY Ciprofloxacin (Cipro), 250 MG PO Q12 Finasteride (Proscar), 5 MG PO DAILY Fluticasone Prop/Salmeterol (Advair Diskus 250/50 60 Dose), 1 PUFF INH BID Furosemide (Lasix), 40 MG PO DAILY Insulin Aspart (Novolog Flexpen), 5 UNITS SC QAM Insulin Aspart (Novolog Flexpen), 5 UNITS SC NOON Insulin Aspart (Novolog Flexpen), 7 UNITS SC QPM Insulin Glargine (Toujeo Solostar), 30 UNITS SC QPM Ipratropium-Albuterol (Combivent Respimat), 2 PUFFS INH QID Isosorbide Mononitrate Ext Rel (Imdur Ext Rel), 60 MG PO DAILY Memantine (Namenda), 10 MG PO AMPM Metoprolol Tartrate (Lopressor), 25 MG PO AMPM Nitrofurantoin Macrocrystals (Nitrofurantoin Macrocryst), 50 MG PO QPM Ranitidine Hcl (Zantac), 300 MG PO HS Sertraline HCl (Sertraline HCl), 50 MG PO DAILY Tamsulosin Hcl (Flomax), 0.8 MG PO QPM Warfarin Sod (Coumadin), 7.5 MG PO DAILY@16 Scheduled PRN Fluticasone Prop/Salmeterol (Advair Diskus 250/50 60 Dose), 1 PUFF INH BID PRN for SOB/Wheezing Nitroglycerin (Nitroglycerin Lingual), 1 DOSE PO DIRECTED PRN for Chest Pain Allergies Coded Allergies: Codeine (Verified Adverse Reaction, Intermediate, EMESIS, 10/07/17) Iodinated Diagnostic Agents (Verified Adverse Reaction, Mild, NAUSEA, 10/07) Physical Exam Vital Signs Date Time Temp Pulse Resp B/P (MAP) Pulse Ox O2 Delivery O2 Flow Rate FiO2 12/19/17 08:31 187/117 12/19/17 08:29 105 25 94 12/19/17 08:24 114 23 92 12/19/17 08:19 100 27 93 12/19/17 08:14 96 29 93 12/19/17 08:09 106 29 93 12/19/17 08:04 104 25 93 12/19/17 08:01 173/120 12/19/17 07:59 114 30 91 12/19/17 07:55 94 Room Air 2.0 12/19/17 07:54 105 27 93 12/19/17 07:49 103 32 92 12/19/17 07:44 104 29 94 12/19/17 07:40 83 12/19/17 07:39 97 29 92 12/19/17 07:30 94 Nasal Cannula 2.0 12/19/17 07:30 37.6 108 36 197/117 94 Room Air 12/19/17 07:30 94 Room Air 12/19/17 07:30 94 Nasal Cannula Physical Exam CONSTITUTIONAL/VITAL SIGNS: Reviewed / noted above. GENERAL: Non-toxic in appearance. INTEGUMENTARY: Warm, dry, and [place]. HEAD: Normocephalic. EYES: without scleral icterus or trauma. ENT/OROPHARYNX: clear and moist. LYMPHADENOPATHY/NECK: Is supple without lymphadenopathy or meningismus. RESPIRATORY: Slightly diminished breath sounds bilaterally. Minimal wheezing noted. CARDIOVASCULAR: Regular rate and rhythm. GI/ABDOMEN: Soft and nontender. No organomegaly or pulsatile mass. No rebound or guarding. Normal bowel sounds. EXTREMITIES: Warm and well perfused. BACK: No CVA tenderness. NEUROLOGICAL: Intact without focal deficits. PSYCHIATRIC: normal affect. MUSCULOSKELETAL: Normally developed with good muscle tone. Medical Decision & Procedures ER Provider Diagnostic Interpretation: Radiology results as stated below per my review and radiologist interpretation: CHEST ONE VIEW PORTABLE FINDINGS: Right jugular Port-A-Cath terminates in the SVC. The heart remains mildly enlarged. Mild diffuse interstitial thickening which has progressed. This may represent mild congestive change. Suspect trace bilateral pleural effusions. Left basilar linear densities favor subsegmental atelectasis. No pneumothorax. There are poststernotomy changes. IMPRESSION: Cardiomegaly mild interstitial pulmonary edema and trace bilateral pleural effusions. Electronically signed by: Jeramie Jacobs M.D. 12/19/2017 8:21 AM Laboratory Results 12/19/17 07:40 Red Blood Count 4.65, Mean Corpuscular Volume 89.9, Mean Corpuscular Hemoglobin 30.8, Mean Corpuscular Hemoglobin Concent 34.2, Mean Platelet Volume 10.0, Neutrophils (%) (Auto) 73.7, Lymphocytes (%) (Auto) 16.2, Monocytes (%) (Auto) 8.0, Eosinophils (%) (Auto) 1.4, Basophils (%) (Auto) 0.3, Neutrophils # (Auto) 7.32, Lymphocytes # (Auto) 1.61, Monocytes # (Auto) 0.80, Eosinophils # (Auto) 0.14, Basophils # (Auto) 0.03 12/19/17 07:40 Test 12/19/17 07:40 12/19/17 07:50 White Blood Count 9.94 K/uL (4.8-10.8) Red Blood Count 4.65 M/uL (4.7-6.1) Hemoglobin 14.3 g/dL (14.0-18.0) Hematocrit 41.8 % (42-52) Mean Corpuscular Volume 89.9 fL (80-100) Mean Corpuscular Hemoglobin 30.8 pg (25-34) Mean Corpuscular Hemoglobin Concent 34.2 g/dl (32-36) Platelet Count 181 K/uL (130-400) Mean Platelet Volume 10.0 fL (7.4-10.4) Neutrophils (%) (Auto) 73.7 % Lymphocytes (%) (Auto) 16.2 % Monocytes (%) (Auto) 8.0 % Eosinophils (%) (Auto) 1.4 % Basophils (%) (Auto) 0.3 % Neutrophils # (Auto) 7.32 K/uL (1.4-6.5) Lymphocytes # (Auto) 1.61 K/uL (1.2-3.4) Monocytes # (Auto) 0.80 K/uL (0.11-0.59) Eosinophils # (Auto) 0.14 K/uL (0-0.5) Basophils # (Auto) 0.03 K/uL (0-0.2) RDW Standard Deviation 46.4 fL (36.4-46.3) RDW Coefficient of Variation 14.2 % (11.5-14.5) Immature Granulocyte % (Auto) 0.4 % Immature Granulocyte # (Auto) 0.04 K/uL (0.00-0.02) Prothrombin Time 11.2 SECONDS (9.0-12.0) Prothromb Time International Ratio 1.1 (0.9-1.1) Activated Partial Thromboplast Time 27.3 SECONDS (21.0-31.0) Partial Thromboplastin Ratio 1.1 Anion Gap 6.0 mmol/L (3-11) Est Creatinine Clear Calc Drug Dose 49.3 ml/min Estimated GFR () 43.8 Estimated GFR (Non- 37.8 BUN/Creatinine Ratio 14.7 (10-20) Calcium Level 8.5 mg/dl (8.5-10.1) Total Bilirubin 0.8 mg/dl (0.2-1) Aspartate Amino Transf (AST/SGOT) 15 U/L (15-37) Alanine Aminotransferase (ALT/SGPT) 17 U/L (12-78) Alkaline Phosphatase 89 U/L (45-117) Total Creatine Kinase 51 U/L (39-308) Creatine Kinase MB 1.2 ng/ml (0.5-3.6) Creatine Kinase MB Ratio 2.4 (0-3.0) Troponin I 0.016 ng/ml (0-0.045) Total Protein 7.7 gm/dl (6.4-8.2) Albumin 3.6 gm/dl (3.4-5.0) Globulin 4.1 gm/dl (2.5-4.0) Albumin/Globulin Ratio 0.9 (0.9-2) Influenza Type A Antigen Neg for Influ A (NEG) Influenza Type B Antigen Neg for Influ B (NEG) Bedside Lactic Acid Venous 2.03 mmol/L (0.90-1.70) Laboratory results as stated above per my review. ECG Per My Interpretation Indication: SOB/dyspnea Rate (beats per minute): 98 Rhythm: atrial fibrillation Findings: other (No ST elevation. No PVCs. ) ED Course 0751: Previous medical records were reviewed. The patient was evaluated in room B7. A complete history and physical examination was performed. 0950: On reevaluation, the patient is resting comfortably. I discussed the results and findings with the patient. He verbalized agreement of the treatment plan. The patient was discharged home. Medical Decision the differential was considered includes acute myocardial infarction, acute coronary syndrome, myocarditis, pericarditis, pericardial effusions/tamponade, esophageal perforation, pulmonary embolism, pneumonia, pneumothorax, cardiomyopathy, congestive heart, anemia , COPD/asthma exacerbation. This is a 77-year-old male who presents to the ED with a chief complaint of shortness of breath. The patient developed a cough overnight and some shortness of breath today. He does not use any home oxygen. The patient received a DuoNeb treatment 2 by EMS as well as some IV Solu-Medrol and IV Zofran. The patient states that he is feeling better and his exam on my evaluation reveals clear lung sounds. The patient's symptoms have improved since being treated by EMS. Her saturations on room air 94%. Patient's EKG shows atrial fibrillation at a rate of 98, CBC is normal, BUN is 25 and creatinine is 1.7. Metabolic panel was unremarkable, flu swab was negative and a chest x-ray revealed some mild interstitial edema and trace pleural effusions. The patient was told the results of the test. He is felt to be stable for discharge and outpatient follow-up. The patient's blood pressure was noted to be elevated but his states that he has not taken his morning meds. Once they arrive home, he will take his morning meds. Medication Reconcilliation Current Medication List: was personally reviewed by me Blood Pressure Screening Patient's blood pressure: Elevated blood pressure Blood pressure disposition: Referred to PCP Impression Primary Impression: COPD (chronic obstructive pulmonary disease) Scribe Attestation The scribe's documentation has been prepared under my direction and personally reviewed by me in its entirety. I confirm that the note above accurately reflects all work, treatment, procedures, and medical decision making performed by me. Departure Information Dispostion Home / Self-Care Referrals Deidra Correa M.D. (PCP) Patient Instructions My [facility] Additional Instructions Follow-up with your doctor for further care and evaluation in 1-2 days. Return to the emergency department for worsening or new symptoms or any concerns. You have been examined and treated today on an emergency basis only. This is not a substitute for, or an effort to provide, complete comprehensive medical care. It is impossible to recognize and treat all injuries or illnesses in a single emergency department visit. It is therefore important that you follow up closely with your doctor. Call as soon as possible for an appointment.
[2017-12-19 09:57] VITALS: BP 207/126; PULSE 96; TEMP 37.6; O2SAT 93
[2017-12-20] MEDS ORDERED: NITR0.1S PO (07:54)
[2017-12-20] MEDS ORDERED: FRS/40 PO (08:54)
[2017-12-20] MEDS ORDERED: NVLGI/PEN SC ×3 (08:54)
[2017-12-20] MEDS ORDERED: ISOS60TA25 PO (08:54)
[2017-12-20] MEDS ORDERED: ZLF/50 PO (08:54)
[2017-12-20] MEDS ORDERED: RANI300T2 PO (08:54)
[2017-12-20] MEDS ORDERED: IPRA1AER2 INH (08:54)
[2017-12-20] MEDS ORDERED: ATOR-24 PO (08:54)
[2017-12-20] MEDS ORDERED: NMN10 PO (08:54)
[2017-12-20] MEDS ORDERED: LPR25 PO (08:54)
[2017-12-20] MEDS ORDERED: ASPI81TA28 PO (08:54)
[2017-12-20] MEDS ORDERED: NITR50CA39 PO (08:54)
[2017-12-20] MEDS ORDERED: TAMS0.4C38 PO (08:54)
[2017-12-20] MEDS ORDERED: FINA5TAB PO (08:54)
[2017-12-20] MEDS ORDERED: INSU1INJ33 SQ (23:02)
[2017-12-20] MEDS ORDERED: WARF-246 PO (23:02)
[2017-12-20] MEDS ORDERED: WARF7.5T PO (23:02)
[2017-12-20] MEDS ORDERED: FLUT115A INH (23:02)
[2017-12-20] MEDS ORDERED: NITR0.2D7 TOP (23:04)
== END 2017-12-19 09:59 | disposition home or self-care (01) ==
LOC: EDBD 07:29 → C.EDB 07:30
DX: J44.9 Chronic obstructive pulmonary disease, unspecified (principal); I25.10 Atherosclerotic heart disease of native coronary artery without angina pectoris; I50.9 Heart failure, unspecified; J45.909 Unspecified asthma, uncomplicated; Z86.718 Personal history of other venous thrombosis and embolism; E78.00 Pure hypercholesterolemia, unspecified; E11.9 Type 2 diabetes mellitus without complications; I48.91 Unspecified atrial fibrillation; G30.9 Alzheimer's disease, unspecified; F17.210 Nicotine dependence, cigarettes, uncomplicated; Z79.82 Long term (current) use of aspirin; Z79.4 Long term (current) use of insulin; Z79.01 Long term (current) use of anticoagulants; Z79.899 Other long term (current) drug therapy; Z88.5 Allergy status to narcotic agent; Z91.041 Radiographic dye allergy status

== ENCOUNTER 2017-12-20 21:05 | Inpatient (IN) | payer OTHER ==
[~2017-12-20] VITALS: Ht 180.3 cm; Wt 131.0 kg
[~2017-12-20 21:05] MED LIST changes: +ASPI81TA28 PO; +FINA5TAB PO; +FRS/40 PO; +IPRA1AER2 INH; +ISOS60TA25 PO; +LPR25 PO; +NITR0.1S PO; +NITR50CA39 PO; +NMN10 PO; +NVLGI/PEN SC; +RANI300T2 PO; +TAMS0.4C38 PO; +ZLF/50 PO
[2017-12-20] MEDS ORDERED: ALBUT/IPRATROP 3MG/0.5MG NEB 3 ML VIAL INH STA (21:58)
[2017-12-20] MEDS ORDERED: DEXAMETHASONE **PF** INJ 10 MG/ML VIAL IV ONE (22:00)
[2017-12-20 22:41] LABS: BASO % 0.3 %; BASO ABS # 0.02 K/uL (0-0.2); EOS % 0.3 %; EOS ABS # 0.02 K/uL (0-0.5); HEMATOCRIT 37.4 % (42-52); HEMOGLOBIN 12.6 g/dL (14.0-18.0); IG# 0.03 K/uL (0.00-0.02); LYMPH % 8.9 %; LYMPH ABS # 0.68 K/uL (1.2-3.4); MEAN CELL VOLUME 88.6 fL (80-100); MEAN CORPUSCULAR HEMOGLOBIN 29.9 pg (25-34); MEAN CORPUSCULAR HGB CONC 33.7 g/dl (32-36); MEAN PLATELET VOLUME 9.8 fL (7.4-10.4); MONO % 12.3 %; MONO ABS # 0.94 K/uL (0.11-0.59); NEUT % 77.8 %; NEUT ABS # 5.96 K/uL (1.4-6.5); PLATELET COUNT 172 K/uL (130-400); RED CELL DISTRIBUTION WIDTH CV 14.4 % (11.5-14.5); RED CELL DISTRIBUTION WIDTH SD 46.9 fL (36.4-46.3); WHITE BLOOD COUNT 7.65 K/uL (4.8-10.8)
--- NOTE | 2017-12-20 22:49 | DIAGNOSTIC IMAGING REPORT ---
CHEST ONE VIEW PORTABLE HISTORY: 77 years-old Male CHEST PAIN acute atypical chest pain COMPARISON: Chest radiograph 12/19/2017 TECHNIQUE: Portable AP view of the chest FINDINGS: Cardiac silhouette is enlarged, unchanged. Prior median sternotomy. The third from the top sternotomy wires fractured. Atherosclerosis of the aorta. Right internal jugular dual-lumen catheter is unchanged. Mild pulmonary edema redemonstrated with trace fluid within the minor fissure. Trace bilateral pleural effusions. The lateral left lung base is excluded from the [id number]. Patchy bibasilar opacities suggest atelectasis. Bones of the chest appear grossly intact. IMPRESSION: Cardiomegaly with unchanged appearance of mild pulmonary edema and trace bilateral pleural effusions The above report was generated using voice recognition software. It may contain grammatical, syntax or spelling errors. Electronically signed by: Efraín Perez M.D. 12/20/2017 10:47 PM Dictated Date/Time: 12/20/2017 10:46 PM
[2017-12-20 22:53] LABS: INR 1.1 (0.9-1.1); PTT PATIENT 26.1 SECONDS (21.0-31.0)
[2017-12-20 22:57] LABS: ALBUMIN 3.2 gm/dl (3.4-5.0); ALT/SGPT 22 U/L (12-78); BLOOD UREA NITROGEN 31 mg/dl (7-18); CALCIUM 8.1 mg/dl (8.5-10.1); CARBON DIOXIDE 27 mmol/L (21-32); CREATININE 1.72 mg/dl (0.60-1.40); GLUCOSE 189 mg/dl (70-99); LIPASE 87 U/L (73-393); POTASSIUM 4.1 mmol/L (3.5-5.1); SODIUM 131 mmol/L (136-145)
[2017-12-20 23:00] LABS: INFLUENZA A PCR Neg for Influ A (NEG); INFLUENZA B PCR POS for Influ B (NEG)
[2017-12-20] MEDS ORDERED: FLUT115A INH (23:02)
[2017-12-20] MEDS ORDERED: WARF7.5T PO (23:02)
[2017-12-20] MEDS ORDERED: INSU1INJ33 SQ (23:02)
[2017-12-20] MEDS ORDERED: WARF-246 PO (23:02)
[2017-12-20] MEDS ORDERED: MAGNESIUM SULFATE 1GM / D5W 1 GM BAG IV STA (23:04)
[2017-12-20] MEDS ORDERED: OSELTAMIVIR PHOSPHATE 75 MG CAP PO STA (23:04)
[2017-12-20] MEDS ORDERED: NITR0.2D7 TOP (23:04)
[2017-12-20 23:31] LABS: ALKALINE PHOSPHATASE 73 U/L (45-117); AST/SGOT 21 U/L (15-37); TOTAL PROTEIN 6.7 gm/dl (6.4-8.2)
[2017-12-21] VITALS (12 sets, daily range): BP systolic 115–163; BP diastolic 68–98; PULSE 65–96; TEMP 36.4–36.8; O2SAT 94–98; BMI 41.1
[2017-12-21] MEDS ORDERED: MAGNESIUM HYDROXIDE SUSP 30 ML UDC PO PRN (00:45)
[2017-12-21] MEDS ORDERED: ACETAMINOPHEN 325 MG TAB PO PRN (00:45)
[2017-12-21] MEDS ORDERED: MoRPHine SULFATE 2 MG/ML CARP IV PRN (00:45)
[2017-12-21] MEDS ORDERED: ONDANSETRON INJ 2 MG/ML 2 ML VIAL IV PRN (00:45)
[2017-12-21] MEDS ORDERED: NITROGLYCERIN 0.4 MG SL PER TAB CHARGE SL PRN (00:45)
[2017-12-21] MEDS ORDERED: POLYETHYLENE (MIRALAX) 17 GM PACK PO PRN (00:45)
[2017-12-21] MEDS ORDERED: ALUMINUM/MAGNESIUM/SIMETH (MAALOX MAX) 30 ML UDC PO PRN (00:45)
[2017-12-21] MEDS ORDERED: PATIENT'S HEIGHT AND/OR WEIGHT NEEDED STA (00:53)
--- NOTE | 2017-12-21 00:58 | History and Physical ---
History & Physical Date & Time of Service: Dec 21, 2017 at 00:47 Chief Complaint: Trouble Breathing Primary Care Physician: Deidra Correa M.D. History of Present Illness Source: patient 76 y/o M, CAD, diastolic CHF, CKD 2-3, chronic A flutter, DM2, morbid obesity, dementia, COPD. Presents primarily with progressive SOB and weakness. The pt is a poor historian and could not confirm a fever. He denies CP, N/V, diaphoresis or dysuria. Initial labs are notable for an elevated troponin and a (+) rapid flu. Past Medical/Surgical History 1) Alzheimer dementia 2) Anxiety disorder 3) COPD 4) Chronic atrial fibrillation 5) CAD - CABG 2010 6) CHF - diastolic - EF 55% - moderate MS, moderate 7) Cholelithiasis 8) Colon cancer 9) Depression 10) DM II 11) History of DVT 12) HTN 13) HPL 14) URIAH 15) BPH - urinary retention Surgical: 1) Hemicolectomy 2) CABG 2010 3) Coronary stenting Family History Diabetes mellitus Heart disease Hypertension Social History Smoking Status: Never Smoker Drug Use: none Marital Status: Housing status: lives with family Occupational Status: retired Immunizations History of Influenza Vaccine: Yes Influenza Vaccine Date: Jun 12, 2010 History of Tetanus Vaccine?: Yes History of Pneumococcal: Yes History of Hepatitis B Vaccine: Unknown Allergies Coded Allergies: Codeine (Verified Adverse Reaction, Intermediate, EMESIS, 10/07/17) Iodinated Diagnostic Agents (Verified Adverse Reaction, Mild, NAUSEA, 10/07) Home Medications Scheduled Aspirin (Aspirin Ec), 81 MG PO DAILY Atorvastatin (Lipitor), 40 MG PO HS Finasteride (Proscar), 5 MG PO DAILY Fluticasone-Salmeterol 115/21 Mcg (Advair Hfa 115/21 Mcg), 1 PUFF INH TID Furosemide (Lasix), 40 MG PO DAILY Insulin Aspart (Novolog Flexpen), 5 UNITS SC QAM Insulin Aspart (Novolog Flexpen), 5 UNITS SC NOON Insulin Aspart (Novolog Flexpen), 7 UNITS SC QPM Insulin Degludec (Tresiba Flextouch), 30 SQ QPM Ipratropium-Albuterol (Combivent Respimat), 2 PUFFS INH QID Isosorbide Mononitrate Ext Rel (Imdur Ext Rel), 60 MG PO DAILY Memantine (Namenda), 10 MG PO AMPM Metoprolol Tartrate (Lopressor), 25 MG PO AMPM Nitrofurantoin Macrocrystals (Nitrofurantoin Macrocryst), 50 MG PO QPM Nitroglycerin (Nitroglycerin), 1 PATCH TOP DAILY Ranitidine Hcl (Zantac), 300 MG PO HS Sertraline HCl (Sertraline HCl), 50 MG PO DAILY Tamsulosin Hcl (Flomax), 0.8 MG PO QPM Warfarin Sodium (Coumadin), 7.5 MG PO 5XD Warfarin Sodium (Warfarin Sodium), 10 MG PO WED & FRI Scheduled PRN Nitroglycerin (Nitroglycerin Lingual), 1 DOSE PO DIRECTED PRN for Chest Pain Review of Systems Constitutional: + fever, + weakness, No chills, No sweats Eyes: No worsening of vision ENT: No hearing loss, No unusual epistaxis, No nasal symptoms Respiratory: + cough, + shortness of breath, + dyspnea on exertion, + dyspnea at rest, No sputum, No wheezing Cardiovascular: No chest pain, No orthopnea, No PND Abdomen: No pain, No nausea, No vomiting Musculoskeletal: No joint pain Genitourinary - Male: No hematuria, No dysuria, No urinary frequency Neurologic: + memory loss (Chronic), No paralysis, No weakness Psychiatric: No depression symptoms Endocrine: + fatigue Hematologic / Lymphatic: No abnormal bleeding/bruising Integumentary: No rash Allergic / Immunologic: No environmental allergies Physical Exam Vital Signs Date Time Temp Pulse Resp B/P (MAP) Pulse Ox O2 Delivery O2 Flow Rate FiO2 12/20/17 23:04 81 28 110/65 95 Nasal Cannula 2.0 12/20/17 22:33 Nasal Cannula 3.0 94 12/20/17 22:32 94 Nasal Cannula 3.0 12/20/17 22:30 96 Nasal Cannula 2.0 12/20/17 22:08 76 12/20/17 21:19 Room Air 12/20/17 21:15 36.7 81 26 134/80 94 Room Air General Appearance: + obese, + pertinent finding (Irritable, elderly male in no distress lying flat) Head: normocephalic Eyes: normal inspection, EOMI ENT: normal ENT inspection Neck: supple, + pertinent finding (Cannot assess JVD) Respiratory/Chest: chest non-tender, + pertinent finding (Reduced air movement at R base - no clear wheezing or crackles) Cardiovascular: + irregularly irregular, + pertinent finding (faint heart sounds) Abdomen/GI: normal bowel sounds, non tender, soft Back: no CVA tenderness Extremities/Musculoskelatal: + pertinent finding (Minimal LE edema) Neurologic/Psych: male infertility specialist II-XII nml as tested, no motor/sensory deficits, alert, + pertinent finding (AAO x 2) Skin: normal color Diagnostics Laboratory Results Results Past 24 Hours Test 12/20/17 22:30 12/20/17 22:35 12/20/17 23:03 Range/Units White Blood Count 7.65 4.8-10.8 K/uL Red Blood Count 4.22 4.7-6.1 M/uL Hemoglobin 12.6 14.0-18.0 g/dL Hematocrit 37.4 42-52 % Mean Corpuscular Volume 88.6 80-100 fL Mean Corpuscular Hemoglobin 29.9 25-34 pg Mean Corpuscular Hemoglobin Concent 33.7 32-36 g/dl Platelet Count 172 130-400 K/uL Mean Platelet Volume 9.8 7.4-10.4 fL Neutrophils (%) (Auto) 77.8 % Lymphocytes (%) (Auto) 8.9 % Monocytes (%) (Auto) 12.3 % Eosinophils (%) (Auto) 0.3 % Basophils (%) (Auto) 0.3 % Neutrophils # (Auto) 5.96 1.4-6.5 K/uL Lymphocytes # (Auto) 0.68 1.2-3.4 K/uL Monocytes # (Auto) 0.94 0.11-0.59 K/uL Eosinophils # (Auto) 0.02 0-0.5 K/uL Basophils # (Auto) 0.02 0-0.2 K/uL RDW Standard Deviation 46.9 36.4-46.3 fL RDW Coefficient of Variation 14.4 11.5-14.5 % Immature Granulocyte % (Auto) 0.4 % Immature Granulocyte # (Auto) 0.03 0.00-0.02 K/uL Prothrombin Time 11.1 9.0-12.0 SECONDS Prothromb Time International Ratio 1.1 0.9-1.1 Activated Partial Thromboplast Time 26.1 21.0-31.0 SECONDS Partial Thromboplastin Ratio 1.0 Sodium Level 131 136-145 mmol/L Potassium Level 4.1 3.5-5.1 mmol/L Chloride Level 96 98-107 mmol/L Carbon Dioxide Level 27 21-32 mmol/L Anion Gap 8.0 3-11 mmol/L Blood Urea Nitrogen 31 7-18 mg/dl Creatinine 1.72 0.60-1.40 mg/dl Estimated GFR () 43.2 Estimated GFR (Non- 37.3 BUN/Creatinine Ratio 18.1 10-20 Random Glucose 189 70-99 mg/dl Calcium Level 8.1 8.5-10.1 mg/dl Magnesium Level 1.7 1.8-2.4 mg/dl Total Bilirubin 0.5 0.2-1 mg/dl Direct Bilirubin 0.2 0-0.2 mg/dl Aspartate Amino Transf (AST/SGOT) 21 15-37 U/L Alanine Aminotransferase (ALT/SGPT) 22 12-78 U/L Alkaline Phosphatase 73 45-117 U/L Troponin I 0.488 0-0.045 ng/ml Pro-B-Type Natriuretic Peptide 7731 0-1800 pg/ml Total Protein 6.7 6.4-8.2 gm/dl Albumin 3.2 3.4-5.0 gm/dl Lipase 87 73-393 U/L Influenza Type A (RT-PCR) Neg for Influ A NEG Influenza Type B (RT-PCR) POS for Influ B NEG Bedside Troponin I 0.340 0-0.045 ng/ml Venous Blood pH 7.44 7.36-7.41 Venous Blood Partial Pressure CO2 43 38.0-50.0 mmHg Venous Blood Partial Pressure O2 139 mmHg Venous Blood HCO3 29 mmol/L Venous Blood Oxygen Saturation 99.0 % Venous Blood Base Excess 4.5 mEq/L Diagnostic Radiology CXR: Cardiomegaly with unchanged appearance of mild pulmonary edema and trace bilateral pleural effusions EKG AF - no evidence of acute ischemia Impression Assessment and Plan 76 y/o M, CAD, diastolic CHF, CKD 2-3, chronic A flutter, DM2, morbid obesity, dementia, COPD. Presents primarily with progressive SOB and weakness. The pt is a poor historian and could not confirm a fever. He denies CP, N/V, diaphoresis or dysuria. Initial labs are notable for an elevated troponin and a (+) rapid flu. 1) Influenza - placed on Tamiflu 2) SOB/COPD - likely exacerbation due to viral illness - provided with 02, nebs , steroids 3) Elevated trop - may be due to demand ischemia although the pt does have a history of CAD/IA so that a primary event cannot be ruled out. We will trend his troponin, provide full-dose anticoagulation, ASA, NTG, B bartolome, Statin. An echo will be ordered AM to evaluate wall motion 4) CHF - cannot assess volume status clinically due to habitus - we will continue his B bartolome and Lasix as prescribed - he is able to lie flat at the time of admission and renal function is approximately at baseline 5) DM II - placed on SS and Lantus 6) CKD - creat is at baseline - trend daily 7) A flutter - INR is nontherapeutic and may indicate noncompliance with Coumadin - pt placed on full-dose Heparin due to elevated trop regardless - rate controlled with Metoprolol Full code - Heparin prophylaxis Total time for this admit including review of labs, meds, records, imaging - discussion with ot and ER attending - 41 min Resuscitation Status VTE Prophylaxis Will order VTE Prophylaxis: Yes
[2017-12-21] MEDS ORDERED: HEPARIN SOD 5000 UNIT/0.5 ML CARP ONE (01:11)
[2017-12-21] MEDS ORDERED: HEPARIN 25000 UNIT/500 ML D5W ONE (01:12)
[2017-12-21] MEDS ORDERED: HEPARIN SOD (PORCINE) 1000 UNIT/ML 10 ML VIAL IV ONE (01:15)
[2017-12-21] MEDS: HEPARIN 25,000 UNIT/500ML D5W 500 ML IV SCH ×3 (01:15→21:10)
--- NOTE | 2017-12-21 01:29 | EMERGENCY ROOM VISIT NOTE ---
ED Visit Note First contact with patient: 21:53 Physician Help Desk Intern Supervision Note: I interviewed and examined the patient. Discussed with Mel Allen PA-C and agree with findings and plan as documented in the note. Any exceptions or clarifications are listed here: [None] Documented By: Yvonne Monroy
--- NOTE | 2017-12-21 01:49 | EMERGENCY ROOM VISIT NOTE ---
History First contact with patient: 21:53 Chief Complaint: RESPIRATORY PROBLEMS Stated Complaint: TROUBLE BREATHING Nursing Triage Summary: Patient with c/o SOB . Patient was seen in the ER for SOB and was sent home. Patient attempted to use inhaler at home without relief. Also c/o intermittent chest pain on and off today. History of Present Illness The patient is a 77 year old male who presents to the Emergency Room with complaints of increasing cough, wheezing and shortness of breath for the past few days who was seen here yesterday and sent home. Patient states he suffers from COPD. Patient states he has been occasionally having some chest pain that last brief in nature. No exertional chest pain. He states he feels as if his COPD is flaring up again. The patient and the daughter give the history. The daughter states he has been having more shortness of breath and difficulty ambulating secondary to the breathing. No documented temperature. Patient does report he feels sick. Family denies vomiting, diarrhea, leg swelling, abdominal pain. Review of Systems An 10 system review of systems was completed with positives and pertinent negatives listed in the HPI. Past Medical/Surgical History Medical Problems: (1) Alzheimers disease (2) Anxiety (3) Asthma (4) Atrial fibrillation (5) CAD (coronary artery disease) (6) Chest pain (7) CHF (congestive heart failure) (8) CHF (congestive heart failure) (9) CHF exacerbation (10) Cholelithiasis (11) Colon cancer (12) COPD (chronic obstructive pulmonary disease) (13) Depression (14) Diab Mckenna Wo Compl, Type Ii Or Unspec Type, Not Uncntrld (15) DM (diabetes mellitus) (16) DVT (deep venous thrombosis) (17) Emphysema (18) Gross hematuria (19) Hypertension Nos (20) ND (myocardial infarction) (21) Mild sleep apnea (22) Peripheral neuropathy (23) Pure Hypercholesterolem (24) Shortness of breath (25) Troponin level elevated Surgical Problems: (1) H/O hemicolectomy (2) History of coronary artery stent placement (3) Hx of CABG Family History Diabetes mellitus Heart disease Hypertension Social History Smoking Status: Never Smoker Alcohol Use: occasionally Drug Use: none Marital Status: Housing Status: lives with significant other Occupation Status: retired Current/Historical Medications Scheduled Aspirin (Aspirin Ec), 81 MG PO DAILY Atorvastatin (Lipitor), 40 MG PO HS Finasteride (Proscar), 5 MG PO DAILY Fluticasone-Salmeterol 115/21 Mcg (Advair Hfa 115/21 Mcg), 1 PUFF INH TID Furosemide (Lasix), 40 MG PO DAILY Insulin Aspart (Novolog Flexpen), 5 UNITS SC QAM Insulin Aspart (Novolog Flexpen), 5 UNITS SC NOON Insulin Aspart (Novolog Flexpen), 7 UNITS SC QPM Insulin Degludec (Tresiba Flextouch), 30 SQ QPM Ipratropium-Albuterol (Combivent Respimat), 2 PUFFS INH QID Isosorbide Mononitrate Ext Rel (Imdur Ext Rel), 60 MG PO DAILY Memantine (Namenda), 10 MG PO AMPM Metoprolol Tartrate (Lopressor), 25 MG PO AMPM Nitrofurantoin Macrocrystals (Nitrofurantoin Macrocryst), 50 MG PO QPM Nitroglycerin (Nitroglycerin), 1 PATCH TOP DAILY Ranitidine Hcl (Zantac), 300 MG PO HS Sertraline HCl (Sertraline HCl), 50 MG PO DAILY Tamsulosin Hcl (Flomax), 0.8 MG PO QPM Warfarin Sodium (Coumadin), 7.5 MG PO 5XD Warfarin Sodium (Warfarin Sodium), 10 MG PO WED & FRI Scheduled PRN Nitroglycerin (Nitroglycerin Lingual), 1 DOSE PO DIRECTED PRN for Chest Pain Physical Exam Vital Signs Date Time Temp Pulse Resp B/P (MAP) Pulse Ox O2 Delivery O2 Flow Rate FiO2 12/21/17 01:01 128/78 12/21/17 00:30 85 27 94 Nasal Cannula 2.0 12/21/17 00:01 142/77 12/20/17 23:30 83 22 96 Nasal Cannula 2.0 12/20/17 23:04 81 28 110/65 95 Nasal Cannula 2.0 12/20/17 22:33 Nasal Cannula 3.0 94 12/20/17 22:32 94 Nasal Cannula 3.0 12/20/17 22:30 96 Nasal Cannula 2.0 12/20/17 22:08 76 12/20/17 21:19 Room Air 12/20/17 21:15 36.7 81 26 134/80 94 Room Air Physical Exam PHYSICAL EXAM: Vital Signs: Reviewed Nurse's notes. Oxygen saturation was 94% on room air. GENERAL: Pleasant male able to answer questions but slow to respond , Alert, oriented and coherent. The patient is able to speak in complete sentences. NECK: Supple, non-tender. CHEST: Symmetrical expansion. no retractions no accessory muscle use. HEART: Irregularly irregular LUNGS: Breath sounds equal but significantly diminished in intensity on both sides. Bilateral wheezes heard but no rales or pleuritic rub. SKIN: The skin was without rashes, erythema, edema, or bruising. There is no tenting of the skin. Capillary reflex less than 2 seconds. HEAD: Normocephalic atraumatic. EARS: External auditory canals clear, tympanic membranes pearly blackwood without erythema or effusion bilaterally. EYES: Pupils equal round and reactive to light and accommodation. Conjunctivae without injection, sclerae without icterus. Extraocular movements intact. NOSE: Patent, turbinates without inflammation or discharge. MOUTH: Mucous membranes moist. Pharynx without erythema or exudate. Uvula midline. Airway patent. Tongue does not deviate. ABDOMEN: Positive bowel sounds x 4. Normal tympanic percussion. Soft, nontender, without masses or organomegaly. Ramsey sign negative. No guarding or rebound tenderness. MUSCULOSKELETAL: No muscle atrophy, erythema, noted. NEURO: Patient was alert and oriented to person place and time. Normal sensation to light and sharp touch. No focal neurological deficits. Medical Decision & Procedures Laboratory Results 12/20/17 22:30 Red Blood Count 4.22, Mean Corpuscular Volume 88.6, Mean Corpuscular Hemoglobin 29.9, Mean Corpuscular Hemoglobin Concent 33.7, Mean Platelet Volume 9.8, Neutrophils (%) (Auto) 77.8, Lymphocytes (%) (Auto) 8.9, Monocytes (%) (Auto) 12.3, Eosinophils (%) (Auto) 0.3, Basophils (%) (Auto) 0.3, Neutrophils # (Auto ) 5.96, Lymphocytes # (Auto) 0.68, Monocytes # (Auto) 0.94, Eosinophils # (Auto ) 0.02, Basophils # (Auto) 0.02 12/20/17 22:30 Test 12/20/17 22:30 12/20/17 22:35 12/20/17 23:03 White Blood Count 7.65 K/uL (4.8-10.8) Red Blood Count 4.22 M/uL (4.7-6.1) Hemoglobin 12.6 g/dL (14.0-18.0) Hematocrit 37.4 % (42-52) Mean Corpuscular Volume 88.6 fL (80-100) Mean Corpuscular Hemoglobin 29.9 pg (25-34) Mean Corpuscular Hemoglobin Concent 33.7 g/dl (32-36) Platelet Count 172 K/uL (130-400) Mean Platelet Volume 9.8 fL (7.4-10.4) Neutrophils (%) (Auto) 77.8 % Lymphocytes (%) (Auto) 8.9 % Monocytes (%) (Auto) 12.3 % Eosinophils (%) (Auto) 0.3 % Basophils (%) (Auto) 0.3 % Neutrophils # (Auto) 5.96 K/uL (1.4-6.5) Lymphocytes # (Auto) 0.68 K/uL (1.2-3.4) Monocytes # (Auto) 0.94 K/uL (0.11-0.59) Eosinophils # (Auto) 0.02 K/uL (0-0.5) Basophils # (Auto) 0.02 K/uL (0-0.2) RDW Standard Deviation 46.9 fL (36.4-46.3) RDW Coefficient of Variation 14.4 % (11.5-14.5) Immature Granulocyte % (Auto) 0.4 % Immature Granulocyte # (Auto) 0.03 K/uL (0.00-0.02) Prothrombin Time 11.1 SECONDS (9.0-12.0) Prothromb Time International Ratio 1.1 (0.9-1.1) Activated Partial Thromboplast Time 26.1 SECONDS (21.0-31.0) Partial Thromboplastin Ratio 1.0 Anion Gap 8.0 mmol/L (3-11) Estimated GFR () 43.2 Estimated GFR (Non- 37.3 BUN/Creatinine Ratio 18.1 (10-20) Calcium Level 8.1 mg/dl (8.5-10.1) Magnesium Level 1.7 mg/dl (1.8-2.4) Total Bilirubin 0.5 mg/dl (0.2-1) Direct Bilirubin 0.2 mg/dl (0-0.2) Aspartate Amino Transf (AST/SGOT) 21 U/L (15-37) Alanine Aminotransferase (ALT/SGPT) 22 U/L (12-78) Alkaline Phosphatase 73 U/L (45-117) Troponin I 0.488 ng/ml (0-0.045) Pro-B-Type Natriuretic Peptide 7731 pg/ml (0-1800) Total Protein 6.7 gm/dl (6.4-8.2) Albumin 3.2 gm/dl (3.4-5.0) Lipase 87 U/L (73-393) Influenza Type A (RT-PCR) Neg for Influ A (NEG) Influenza Type B (RT-PCR) POS for Influ B (NEG) Bedside Troponin I 0.340 ng/ml (0-0.045) Venous Blood pH 7.44 (7.36-7.41) Venous Blood Partial Pressure CO2 43 mmHg (38.0-50.0) Venous Blood Partial Pressure O2 139 mmHg Venous Blood HCO3 29 mmol/L Venous Blood Oxygen Saturation 99.0 % Venous Blood Base Excess 4.5 mEq/L Medications Administered Medications (Trade) Dose Ordered Sig/Lei Route Start Time Stop Time Status Last Admin Dose Admin Dexamethasone Sodium Phosphate (Dexamethasone Inj Pf) 10 mg NOW ONCE IV 12/20/17 22:00 12/20/17 22:01 DC 12/20/17 22:28 10 MG Albuterol/ Ipratropium (Duoneb) 3 ml NOW STAT INH 12/20/17 21:58 12/20/17 22:01 DC 12/20/17 22:28 3 ML Oseltamivir Phosphate (Tamiflu Cap) 75 mg NOW STAT PO 12/20/17 23:04 12/20/17 23:05 DC 12/20/17 23:13 75 MG Magnesium Sulfate (Magnesium Sulfate) 1 gm NOW STAT IV 12/20/17 23:04 12/20/17 23:05 DC 12/20/17 23:13 1 GM ED Course Prior records/ancillary studies reviewed. Triage Nursing notes reviewed. Additional history obtained from the family. The patient's history was concerning for respiratory difficulties. Differential diagnosis: Etiologies such as infections, reactive airway disease, pneumonia, pneumothorax , COPD, CHF, cardiac ischemia, pulmonary embolism, musculoskeletal, gastrointestinal, as well as others were entertained. Physical examination: As above. ER treatment provided: Nebulizer, Decadron, Tamiflu On reassessment the patient felt better. Diagnostic interpretation by me: The electrocardiogram was irregularly irregular with no acute ST-T wave changes and unchanged from prior. Impression atrial flutter interpreted by myself that is rate controlled The labs revealed positive influenza B. Elevated troponin Imaging studies: Chest x-ray as above. CHEST ONE VIEW PORTABLE HISTORY: 77 years-old Male CHEST PAIN acute atypical chest pain COMPARISON: Chest radiograph 12/19/2017 TECHNIQUE: Portable AP view of the chest FINDINGS: Cardiac silhouette is enlarged, unchanged. Prior median sternotomy. The third from the top sternotomy wires fractured. Atherosclerosis of the aorta. Right internal jugular dual-lumen catheter is unchanged. Mild pulmonary edema redemonstrated with trace fluid within the minor fissure. Trace bilateral pleural effusions. The lateral left lung base is excluded from the [id number]. Patchy bibasilar opacities suggest atelectasis. Bones of the chest appear grossly intact. IMPRESSION: Cardiomegaly with unchanged appearance of mild pulmonary edema and trace bilateral pleural effusions The above report was generated using voice recognition software. It may contain grammatical, syntax or spelling errors. Electronically signed by: Efraín Perez M.D. Consultation: A consultation was placed with Dr. Wong, hospitalist. This appears to be consistent with influenza with elevated troponin and COPD exacerbation. Patient states his breathing is much worse. He was just here 24 hours ago. He will be evaluated by medicine for possible admission. He was given a nebulizer and steroids and felt better. He was given Tamiflu. The daughter gave most of the history and states he has been coughing more and feeling sick the past few days. Family agrees to treatment plan of evaluation for admission. By the evaluation outlined above emergent etiologies such as CHF , cardiac ischemia, pneumonia, pneumothorax, musculoskeletal, serious bacterial infections, as well as others were deemed relatively unlikely. The pt informed about the findings as listed above. All questions were answered and pleased with the treatment. Case reviewed with my attending The chart was completed utilizing [employer] voice recognition software. Grammatical errors, random word insertions, pronoun errors, and incomplete sentences are an occassional consequence of this system due to software limitations, ambient noise, and hardware issues. Any formal questions or concerns about the content, text, or information contained within the body of this dictation should be directly addressed to the physician metallurgical laboratory assistant for clarification. Medical Decision As above Medication Reconcilliation Current Medication List: was personally reviewed by me Blood Pressure Screening Patient's blood pressure: Normal blood pressure Impression Primary Impression: COPD exacerbation Additional Impressions: Troponin level elevated Influenza B Departure Information Dispostion Being Evaluated By Hospitalist Condition FAIR Referrals Deidra Correa M.D. (PCP) Patient Instructions My [facility] Problem Qualifiers
[2017-12-21] MEDS ORDERED: GLUCAGON FOR INJ 1 MG VIAL SQ PRN ×2 (02:00→09:30)
[2017-12-21] MEDS ORDERED: GLUCOSE 40% GEL 15 GM TUBE PO PRN ×2 (02:00→09:30)
[2017-12-21] MEDS ORDERED: DEXTROSE 50% 50 ML SYR IV PRN ×2 (02:00→09:30)
[2017-12-21] MEDS ORDERED: GLUCOSE 10 TABS/TUBE PO PRN ×2 (02:00→09:30)
[2017-12-21] MEDS: ALBUT/IPRATROP 3MG/0.5MG NEB 3 ML VIAL INH SCH ×4 (02:38→18:58)
[2017-12-21] MEDS: INSULIN GLARGINE SOLOSTAR 100 UNITS/ML 3 ML PEN SC SCH ×2 (03:49→21:36)
[2017-12-21] MEDS: METHYLPREDNISOLONE IV 40 MG in SYRINGE 0 ML IV SCH ×3 (03:50→17:30)
[2017-12-21 07:47] LABS: PTT PATIENT 138.9 SECONDS (21.0-31.0)
[2017-12-21 07:48] LABS: CALCIUM 8.2 mg/dl (8.5-10.1); CREATININE 1.88 mg/dl (0.60-1.40); POTASSIUM 4.7 mmol/L (3.5-5.1)
[2017-12-21] MEDS: ADVAIR~ORDER AWAITING ACTION SCH ×3 (08:00→23:45)
[2017-12-21] MEDS: MEMANTINE 10 MG TAB PO SCH (08:11)
[2017-12-21] MEDS: FINASTERIDE 5 MG TAB PO SCH (08:11)
[2017-12-21] MEDS: NITROGLYCERIN 0.2 MG/HR PATCH TD SCH (08:12)
[2017-12-21] MEDS: OSELTAMIVIR PHOSPHATE SUSP 30 MG/5 ML UDP PO SCH ×2 (08:12→21:36)
[2017-12-21] MEDS: SERTRALINE HCL 50 MG TAB PO SCH (08:12)
[2017-12-21] MEDS: ASPIRIN 81 MG ECTAB PO SCH (08:13)
[2017-12-21] MEDS: ISOSORBIDE MONONITRATE 60 MG TABCR PO SCH (08:13)
[2017-12-21] MEDS: FUROSEMIDE 40 MG TAB PO SCH (08:13)
[2017-12-21] MEDS: METOPROLOL TARTRATE 25 MG TAB PO SCH ×2 (08:13→21:12)
[2017-12-21 09:28] LABS: PTT PATIENT 79.5 SECONDS (21.0-31.0)
--- NOTE | 2017-12-21 09:37 | ECHOCARDIOGRAM REPORT ---
*NOTICE TO RECEIVING [employer] This information is strictly Confidential and protected under [place] law. [place] law prohibits you from making any further disclosure of this information unless further disclosure is expressly permitted by the written consent of the person to whom it pertains or is authorized by law. A general authorization for the release of medical or other information is not sufficient for this purpose. Hospital accepts no responsibility if the information is made available to any other person, INCLUDING THE PATIENT. Interpretation Summary * Name: JOY BERNAL JR Study Date: 12/21/2017 06:23 AM BP: 115/76 mmHg * Patient Location: .2T\S\S232\S\1 HR: 83 * : 1940 (M/d/yyy) Gender: Male Height: 71 in * Age: 77 yrs Ethnicity: CA Weight: 290 lb * Ordering Physician: Saúl Wong * Performed By: Sarah Padilla RDCS * * Reason For Study: LIMITED- WALL MOTION * BSA: 2.5 m2 * -- Conclusions -- * Limited echo to assess LV function. * 1. Technically difficult study depsite use of Definity ultrasound contrast. * 2. Grossly normal LV size and wall thickness. * 3. LVEF 50-55%. Akinetic basal inferior wall. Akinetic apex. Hypokinetic apical anterior wall. * 3. RV not well visualized. * 4. Severe MAC with mild mitral stenosis, mild mitral regurgitation. * 5. Compared with prior study on 10/28/2016: Vernon now appears akinetic. Procedure Details * The study was technically limited. * The study was technically difficult. * Limited views were obtained. * There were technical limitations due to patient'sinability to cooperate * A contrast injection of Definity was performed to improve assessment of LV function. * Contrast was injected into an intravenous site in the left arm. * One vial of Definity ultrasound contrast was diluted in normal saline to a total volume of 10 ml. A total of '3' ml of solution was administered during imaging. * Lot # [id number] of Definity utilized for procedure. * Expiration date 12/29. * The attending nurse who injected the contrast agent was KAROL MOFFETT RN. Left Ventricle * The left ventricle is grossly normal size. * There is borderline concentric left ventricular hypertrophy. * Ejection Fraction = 50-55%. * Basal inferior wall akinetic. Thinned akinetic apex. Hypokinetic apical anterior wall Right Ventricle * The right ventricle is not well visualized. Atria * The left atrium is severely dilated. * Right atrium not well visualized. Mitral Valve * There is severe mitral annular calcification. * There is mild mitral stenosis. * There is trace mitral regurgitation. Pulmonic Valve * The pulmonic valve is not well visualized. Pericardium/Pleural * There is no pericardial effusion. MMode 2D Measurements and Calculations LVAd ap4 43.5 cm\S\2 LVLd ap4 9.3 cm EDV(MOD-sp4) 171.7 ml EDV(sp4-el) 173.7 ml LVAs ap4 23.5 cm\S\2 LVLs ap4 8.4 cm ESV(MOD-sp4) 53.2 ml ESV(sp4-el) 55.7 ml EF(MOD-sp4) 69.0 % EF(sp4-el) 67.9 % LVAd ap2 49.0 cm\S\2 LVLd ap2 9.7 cm EDV(MOD-sp2) 215.1 ml EDV(sp2-el) 211.1 ml LVAs ap2 25.8 cm\S\2 LVLs ap2 8.0 cm ESV(MOD-sp2) 71.7 ml ESV(sp2-el) 70.8 ml EF(MOD-sp2) 66.6 % EF(sp2-el) 66.5 % LVLd %diff 4.3 % EDV(MOD-bp) 194.3 ml LVLs %diff -5.53 % ESV(MOD-bp) 62.3 ml EF(MOD-bp) 68.0 % SV(MOD-sp4) 118.5 ml SI(MOD-sp4) 48.0 ml/m\S\2 SV(MOD-sp2) 143.4 ml SI(MOD-sp2) 58.1 ml/m\S\2 SV(MOD-bp) 132.0 ml SI(MOD-bp) 53.4 ml/m\S\2 SV(sp4-el) 118.0 ml SI(sp4-el) 47.8 ml/m\S\2 SV(sp2-el) 140.3 ml SI(sp2-el) 56.8 ml/m\S\2 Doppler Measurements and Calculations MV E max abby 153.0 cm/sec MV dec time 0.26 sec MR max abby 247.6 cm/sec MR max PG 24.5 mmHg
[2017-12-21] MEDS: INSULIN ASPART 100 UNITS/ML 3 ML PEN SC SCH ×3 (11:45→21:36)
[2017-12-21] MEDS ORDERED: INSULIN GLARGINE SOLOSTAR 100 UNITS/ML 3 ML PEN SC STA (17:26)
[2017-12-21] MEDS ORDERED: WARFARIN SOD 10 MG TAB PO ONE (17:45)
--- NOTE | 2017-12-21 18:11 | Hospitalist Progress Note ---
Hospitalist Progress Note Date of Service Dec 21, 2017. Subjective Pt evaluation today including: conversation w/ patient, conversation w/ family Pt feels better.Less SOB, some cough. Reports occasional CP at rest across the chest comes on at rest and goes away at rest after about 4 min. Not severe, mild in nature. Bertrand po. Tele with A-flutter/fib with rates in 80s. Afebrile here but says he had fevers at home All Other Systems: Reviewed and Negative Objective Vital Signs Date Time Temp Pulse Resp B/P (MAP) Pulse Ox O2 Delivery O2 Flow Rate FiO2 12/21/17 15:37 36.4 88 18 163/81 (108) 95 Nasal Cannula 3.0 12/21/17 14:21 65 16 97 Nasal Cannula 3.0 12/21/17 11:58 96 Nasal Cannula 3.0 12/21/17 11:07 36.4 65 22 145/86 (105) 96 3.0 12/21/17 08:00 95 Nasal Cannula 3.0 12/21/17 07:29 36.8 70 18 145/82 (103) 95 3.0 12/21/17 07:03 70 16 95 Nasal Cannula 3.0 12/21/17 04:01 36.8 83 21 115/76 (89) 98 Nasal Cannula 3.0 12/21/17 04:00 Nasal Cannula 2.0 12/21/17 02:38 96 16 96 Nasal Cannula 2.0 12/21/17 01:57 36.7 80 26 149/98 98 Nasal Cannula 2.0 12/21/17 01:43 82 23 128/78 97 12/21/17 01:01 128/78 12/21/17 00:30 85 27 94 Nasal Cannula 2.0 12/21/17 00:01 142/77 12/20/17 23:30 83 22 96 Nasal Cannula 2.0 12/20/17 23:04 81 28 110/65 95 Nasal Cannula 2.0 12/20/17 22:33 Nasal Cannula 3.0 94 12/20/17 22:32 94 Nasal Cannula 3.0 12/20/17 22:30 96 Nasal Cannula 2.0 12/20/17 22:08 76 12/20/17 21:19 Room Air 12/20/17 21:15 36.7 81 26 134/80 94 Room Air Physical Exam General Appearance: WD/WN, no apparent distress, + obese Eyes: normal inspection, sclerae normal ENT: + pertinent finding ([place]) Neck: supple, trachea midline Respiratory/Chest: no respiratory distress, no accessory muscle use, + crackles (mild, at right base, otherwise fairly clear) Cardiovascular: + systolic murmur (2/6 RUSB), + irregularly irregular Abdomen: normal bowel sounds, non tender, soft (and obese) Extremities: no calf tenderness, + swelling (trace pitting edema legs bialt) Neurologic/Psychiatric: no motor/sensory deficits, alert, normal mood/affect Skin: normal color, warm/dry, no rash Laboratory Results Last 24 Hours Test 12/20/17 22:30 12/20/17 22:35 12/20/17 23:03 12/21/17 01:40 White Blood Count 7.65 K/uL Red Blood Count 4.22 M/uL Hemoglobin 12.6 g/dL Hematocrit 37.4 % Mean Corpuscular Volume 88.6 fL Mean Corpuscular Hemoglobin 29.9 pg Mean Corpuscular Hemoglobin Concent 33.7 g/dl Platelet Count 172 K/uL Mean Platelet Volume 9.8 fL Neutrophils (%) (Auto) 77.8 % Lymphocytes (%) (Auto) 8.9 % Monocytes (%) (Auto) 12.3 % Eosinophils (%) (Auto) 0.3 % Basophils (%) (Auto) 0.3 % Neutrophils # (Auto) 5.96 K/uL Lymphocytes # (Auto) 0.68 K/uL Monocytes # (Auto) 0.94 K/uL Eosinophils # (Auto) 0.02 K/uL Basophils # (Auto) 0.02 K/uL RDW Standard Deviation 46.9 fL RDW Coefficient of Variation 14.4 % Immature Granulocyte % (Auto) 0.4 % Immature Granulocyte # (Auto) 0.03 K/uL Prothrombin Time 11.1 SECONDS Prothromb Time International Ratio 1.1 Activated Partial Thromboplast Time 26.1 SECONDS Partial Thromboplastin Ratio 1.0 Sodium Level 131 mmol/L Potassium Level 4.1 mmol/L Chloride Level 96 mmol/L Carbon Dioxide Level 27 mmol/L Anion Gap 8.0 mmol/L Blood Urea Nitrogen 31 mg/dl Creatinine 1.72 mg/dl Estimated GFR () 43.2 Estimated GFR (Non- 37.3 BUN/Creatinine Ratio 18.1 Random Glucose 189 mg/dl Calcium Level 8.1 mg/dl Magnesium Level 1.7 mg/dl Total Bilirubin 0.5 mg/dl Direct Bilirubin 0.2 mg/dl Aspartate Amino Transf (AST/SGOT) 21 U/L Alanine Aminotransferase (ALT/SGPT) 22 U/L Alkaline Phosphatase 73 U/L Troponin I 0.488 ng/ml 0.429 ng/ml Pro-B-Type Natriuretic Peptide 7731 pg/ml Total Protein 6.7 gm/dl Albumin 3.2 gm/dl Lipase 87 U/L Influenza Type A (RT-PCR) Neg for Influ A Influenza Type B (RT-PCR) POS for Influ B Bedside Troponin I 0.340 ng/ml Venous Blood pH 7.44 Venous Blood Partial Pressure CO2 43 mmHg Venous Blood Partial Pressure O2 139 mmHg Venous Blood HCO3 29 mmol/L Venous Blood Oxygen Saturation 99.0 % Venous Blood Base Excess 4.5 mEq/L Test 12/21/17 02:27 12/21/17 06:22 12/21/17 07:09 12/21/17 08:53 Bedside Glucose 261 mg/dl 307 mg/dl Activated Partial Thromboplast Time 138.9 SECONDS 79.5 SECONDS Partial Thromboplastin Ratio 5.3 3.1 Sodium Level 131 mmol/L Potassium Level 4.7 mmol/L Chloride Level 95 mmol/L Carbon Dioxide Level 29 mmol/L Anion Gap 7.0 mmol/L Blood Urea Nitrogen 33 mg/dl Creatinine 1.88 mg/dl Est Creatinine Clear Calc Drug Dose 45.2 ml/min Estimated GFR () 38.8 Estimated GFR (Non- 33.5 BUN/Creatinine Ratio 17.8 Random Glucose 305 mg/dl Calcium Level 8.2 mg/dl Troponin I 0.258 ng/ml Beta-Hydroxybutyric Acid 1.83 mg/dL Test 12/21/17 11:08 12/21/17 15:27 12/21/17 16:35 Bedside Glucose 328 mg/dl 391 mg/dl Activated Partial Thromboplast Time 70.0 SECONDS Partial Thromboplastin Ratio 2.7 Assessment and Plan Pt is a 76 y/o M, CAD, chronic diastolic CHF, CKD 2-3, chronic A flutter on coumadin, DM2, morbid obesity, dementia, COPD, and remote colon CA. Presents primarily with progressive SOB and weakness. The pt is a poor historian and could not confirm a fever. He denies CP, N/V, diaphoresis or dysuria. Initial labs are notable for an elevated troponin and a (+) rapid flu. 1) Influenza B - placed on Tamiflu x 5 day course -supportive care 2) SOB/COPD/Acute hypoxic respiratory failure - likely exacerbation due to viral illness. CXR without PNA - provided with 02, nebs, steroids and much improved -taper steroids down to q8h 3) CAD s/p CABG/Elevated trop - may be due to demand ischemia although the pt does have a history of CAD/[place]. ECHO today with new akinesis of the apex. ECGs without definite ischemia. Having some atypical chest pains off and on today that are mild. Troponin mild elevation and trended downward -status post 2 vessel CABG (vein graft to PDA,vein graft to first diagonal), known occluded LAD and a prior bare-metal stent to his vein graft to PDA in the setting of inferior STEMI. -continue heparin gtt -continue ASA, NTG patch, B bartolome, Statin. -consult Cardiology for further recommendations given new akinesis of apex and elevated troponin 4) Chronic diastolic CHF-difficult to assess volume status clinically due to habitus, does have trace bilat pleural effusions and pulm edema on CXR - we will continue his B bartolome and Lasix as prescribed - he is able to lie flat at the time of admission and renal function is approximately at baseline -continue daily po lasix 5) DM II, on exterminator insulin, uncontrolled, with hyperglycemia due to corticosteroids - placed on SS and Lantus but will tighten up SSI and increase Lantus to 40 units daily due to steroids -taper down steroids -check A1C in the AM 6) CKD stage III- creat is at baseline - trend daily 7) Permanent Atrial fibrillation - INR is nontherapeutic. states he missed a dose yesterday due to lethargy, and she's not sure if he is taking it otherwise. INR in 11/2017 was 1.3 and they increased his dose. INR 12/16/17 was 1.1 and they never received a call from the office on instructions for dosing. - pt placed on full-dose Heparin due to elevated trop regardless - rate controlled with Metoprolol -started coumadin at higher dose 10mg daily today -follow INR 8) HTN/HL-stable -continue meds as above, statin 9) Dementia-stable -continue Namenda -supportive care Proph-heparin, coumadin Full code
[2017-12-21] MEDS: RANITIDINE HCL 150 MG TAB PO SCH (21:11)
[2017-12-21] MEDS: NITROFURANTOIN MACROCRYSTALS 50 MG CAP PO SCH (21:11)
[2017-12-21] MEDS: TAMSULOSIN HCL 0.4 MG CAP PO SCH (21:12)
[2017-12-21] MEDS: ATORVASTATIN 40 MG TAB PO SCH (21:12)
[2017-12-21 23:22] LABS: PTT PATIENT 57.1 SECONDS (21.0-31.0)
[2017-12-22] VITALS (10 sets, daily range): BP systolic 112–158; BP diastolic 67–94; PULSE 63–79; TEMP 36.3–36.9; O2SAT 94–98; Ht 180.3 cm; Wt 131.0 kg
[2017-12-22] MEDS: METHYLPREDNISOLONE IV 40 MG in SYRINGE 0 ML IV SCH ×3 (00:01→16:01)
[2017-12-22] MEDS: ALBUT/IPRATROP 3MG/0.5MG NEB 3 ML VIAL INH SCH ×4 (02:17→20:16)
[2017-12-22 04:29] LABS: HEMOGLOBIN 13.4 g/dL (14.0-18.0); MEAN CELL VOLUME 87.8 fL (80-100); MEAN CORPUSCULAR HEMOGLOBIN 30.2 pg (25-34); MEAN CORPUSCULAR HGB CONC 34.4 g/dl (32-36); MEAN PLATELET VOLUME 9.9 fL (7.4-10.4); PLATELET COUNT 163 K/uL (130-400); RED CELL DISTRIBUTION WIDTH CV 14.1 % (11.5-14.5); RED CELL DISTRIBUTION WIDTH SD 45.6 fL (36.4-46.3); WHITE BLOOD COUNT 6.12 K/uL (4.8-10.8)
[2017-12-22 04:47] LABS: CALCIUM 8.4 mg/dl (8.5-10.1); CREATININE 1.84 mg/dl (0.60-1.40); INR 1.1 (0.9-1.1); POTASSIUM 4.5 mmol/L (3.5-5.1)
[2017-12-22 05:14] LABS: PTT PATIENT 61.8 SECONDS (21.0-31.0)
[2017-12-22 06:53] LABS: HEMOGLOBIN A1C 9.1 % (4.5-5.6)
[2017-12-22] MEDS: ADVAIR~ORDER AWAITING ACTION SCH ×3 (08:00→22:52)
[2017-12-22] MEDS: MEMANTINE 10 MG TAB PO SCH (08:17)
[2017-12-22] MEDS: ASPIRIN 81 MG ECTAB PO SCH (08:18)
[2017-12-22] MEDS: FINASTERIDE 5 MG TAB PO SCH (08:18)
[2017-12-22] MEDS: METOPROLOL TARTRATE 25 MG TAB PO SCH ×2 (08:18→20:53)
[2017-12-22] MEDS: SERTRALINE HCL 50 MG TAB PO SCH (08:18)
[2017-12-22] MEDS: ISOSORBIDE MONONITRATE 60 MG TABCR PO SCH (08:18)
[2017-12-22] MEDS: NITROGLYCERIN 0.2 MG/HR PATCH TD SCH (08:19)
[2017-12-22] MEDS: FUROSEMIDE 40 MG TAB PO SCH (08:19)
[2017-12-22] MEDS: INSULIN ASPART 100 UNITS/ML 3 ML PEN SC SCH ×4 (08:24→20:56)
[2017-12-22] MEDS: OSELTAMIVIR PHOSPHATE SUSP 30 MG/5 ML UDP PO SCH ×2 (08:27→20:53)
[2017-12-22] MEDS ORDERED: SODIUM CHLORIDE 0.65% NA SOLN 45 ML (OCEAN) PRN (10:45)
--- NOTE | 2017-12-22 10:58 | Cardiology Consultation ---
Cardiology Consultation Date of Consultation: Dec 22, 2017. Reason for Consultation: Elevated troponin, history of coronary artery disease post prior bypass History of Present Illness Mr. Townsend is a pleasant 77-year-old gentleman with a history of ischemic cardiomyopathy, heart failure with reduced ejection fraction, coronary artery disease status post 2 vessel CABG (vein graft to PDA, vein graft to 1st diagonal) with prior PCI and bare metal stent placement to a vein graft to PDA in the setting of inferior STEMI in 2010, hypertension, dyslipidemia, prior distal DVT, COPD, type 2 diabetes and permanent atrial fibrillation. She was admitted for worsening shortness of breath and cardiology consult for further management in the setting of mildly elevated troponin. Patient states that was feeling is baseline approximately 2-3 weeks ago. This was after a hospitalization in October in the setting of COPD exacerbation with influenza a infection. More recently has noted shortness of breath just walking across his home and eventually at rest. With that indoor cyst nonproductive cough, subjective fevers. Was found to have positive influenza B infection. Of note recent sick contacts with his grandson. Patient denies any recent new chest pain. Reports some chest discomfort when laying on his left side. Has been taking his diuretics and anticoagulation intermittently. Denies significant lower extremity swelling, denies significant orthopnea. On presentation was noted to have mildly elevated troponin to 0.48. EKG showed his permanent atrial fibrillation without significant ST changes. Echocardiogram yesterday showed preserved LV function with apical akinesis which has previously been noted on prior echoes in the outpatient setting. Past Medical/Surgical History 1. Coronary artery disease, status post 2 vessel CABG (vein graft to PDA, vein graft to first diagonal), known occluded LAD and a prior bare-metal stent to his vein graft to PDA in the setting of inferior STEMI. 2. Ischemic cardiomyopathy. An echo in June of 2006 showed preserved LV function with an EF of 50%-55%. A nuclear cardiology study at that time showed EF of around 34%. 3. Permanent atrial fibrillation. 4. Moderate aortic stenosis. 5. Hypertension. 6. Dyslipidemia. 7. Mild dementia. 8. Anemia. 9. Asthma. 10. History of hematuria. 11. COPD. 12. Depression and anxiety. 13. Type 2 diabetes, not on insulin. 14. Dyslipidemia. 15. BPH. 16. Hyperlipidemia. Family History Diabetes mellitus Heart disease Hypertension Social History Smoking Status: Never Smoker History of Alcohol Use: Yes (joey ) Review of Systems Respiratory: + dyspnea on exertion 10 point review of systems was completed and was otherwise negative unless stated in HPI Allergies Coded Allergies: Codeine (Verified Adverse Reaction, Intermediate, EMESIS, 10/07/17) Iodinated Diagnostic Agents (Verified Adverse Reaction, Mild, NAUSEA, 10/07) Medications Current Inpatient Medications Medications (Trade) Dose Ordered Sig/Lei Route Start Time Stop Time Status Last Admin Dose Admin Oseltamivir Phosphate (Tamiflu Susp) 30 mg BID PO 12/21/17 09:00 12/26/17 08:59 12/22/17 08:27 30 MG Acetaminophen (Tylenol Tab) 650 mg Q4H PRN PO 12/21/17 00:45 01/20/18 00:44 Al Hydrox/Mg Hydrox/Simethicone (Maalox Max Susp) 15 ml Q4H PRN PO 12/21/17 00:45 01/20/18 00:44 Magnesium Hydroxide (Milk Of Magnesia Susp) 30 ml Q12H PRN PO 12/21/17 00:45 01/20/18 00:44 Ondansetron HCl (Zofran Inj) 4 mg Q6H PRN IV 12/21/17 00:45 01/20/18 00:44 Nitroglycerin (Nitrostat Tab) 0.4 mg UD PRN SL 12/21/17 00:45 01/20/18 00:44 Morphine Sulfate (MoRPHine SULFATE INJ) 2 mg Q30M PRN IV 12/21/17 00:45 01/04/18 00:44 Polyethylene (Miralax Powder Packet) 17 gm DAILY PRN PO 12/21/17 00:45 01/20/18 00:44 Aspirin (Ecotrin Tab) 81 mg DAILY PO 12/21/17 09:00 01/20/18 08:59 12/22/17 08:18 81 MG Atorvastatin Calcium (Lipitor Tab) 40 mg HS PO 12/21/17 21:00 01/20/18 20:59 12/21/17 21:12 40 MG Finasteride (Proscar Tab) 5 mg DAILY PO 12/21/17 09:00 01/20/18 08:59 12/22/17 08:18 5 MG Furosemide (Lasix Tab) 40 mg DAILY PO 12/21/17 09:00 01/20/18 08:59 12/22/17 08:19 40 MG Isosorbide Mononitrate (Imdur Ext Rel Tab) 60 mg DAILY PO 12/21/17 09:00 01/20/18 08:59 12/22/17 08:18 60 MG Memantine (Namenda Tab) 10 mg DAILY PO 12/21/17 09:00 01/20/18 08:59 12/22/17 08:17 10 MG Metoprolol Tartrate (Lopressor Tab) 25 mg BID PO 12/21/17 09:00 01/20/18 08:59 12/22/17 08:18 25 MG Nitrofurantoin Macrocrystals (Macrodantin Cap) 50 mg QPM PO 12/21/17 21:00 12/26/17 20:59 12/21/17 21:11 50 MG Nitroglycerin (Nitro-Dur 0.2 Mg/Hr Patch) 1 patch DAILY TD 12/21/17 09:00 01/20/18 08:59 12/22/17 08:19 1 PATCH Ranitidine HCl (zANTac TAB) 300 mg HS PO 12/21/17 21:00 01/20/18 20:59 12/21/17 21:11 300 MG Sertraline HCl (Zoloft Tab) 50 mg DAILY PO 12/21/17 09:00 01/20/18 08:59 12/22/17 08:18 50 MG Tamsulosin HCl (Flomax Cap) 0.8 mg QPM PO 12/21/17 21:00 01/20/18 20:59 12/21/17 21:12 0.8 MG Miscellaneous Information (Order Awaiting Action) 1 ea QS N/A 12/21/17 08:00 01/20/18 07:59 Insulin Glargine (Lantus Solostar Pen) 30 units HS SC 12/21/17 03:15 01/20/18 03:14 12/21/17 21:36 30 UNITS Heparin Sodium/ Dextrose 500 ml @ 27 mls/hr [id number] IV 12/21/17 01:15 01/20/18 01:14 12/21/17 21:10 27 MLS/HR Albuterol/ Ipratropium (Duoneb) 3 ml Q6R INH 12/21/17 03:00 01/20/18 02:59 12/22/17 07:05 3 ML Glucose (Glucose 40% Gel) 15-30 GRAMS 15 GRAMS... UD PRN PO 12/21/17 02:00 01/20/18 01:59 Glucose (Glucose Chew Tab) 4-8 Tablets 4 Tabl... UD PRN PO 12/21/17 02:00 01/20/18 01:59 Dextrose (Dextrose 50% 50ML Syringe) 25-50ML OF 50% DW IV FOR... UD PRN IV 12/21/17 02:00 01/20/18 01:59 Glucagon (Glucagon Inj) 1 mg UD PRN SQ 12/21/17 02:00 01/20/18 01:59 Miscellaneous (Remove Nitro-Dur Patch) 1 ea DAILY@21 N/A 12/21/17 21:00 01/20/18 20:59 12/21/17 21:13 1 EA Insulin Aspart (novoLOG ASPART) SLIDING SCALE If C... ACHS SC 12/21/17 11:00 01/20/18 10:59 12/22/17 08:24 6 UNITS Warfarin Sodium (Coumadin Tab) 10 mg DAILY@16 PO 12/22/17 16:00 01/21/18 15:59 Methylprednisolone Sodium Succinate 40 mg/Syringe 0.64 ml @ 1.5 mls/min Q8H IV 12/22/17 00:00 01/20/18 03:59 12/22/17 08:17 1.5 MLS/MIN Physical Exam Vital Signs Past 12 Hours Date Time Temp Pulse Resp B/P (MAP) Pulse Ox O2 Delivery O2 Flow Rate FiO2 12/22/17 07:40 36.7 73 22 152/91 (111) 95 3.0 12/22/17 07:08 72 20 96 Nasal Cannula 3.0 12/22/17 04:28 36.4 79 22 158/94 (115) 94 Nasal Cannula 2.0 12/22/17 04:00 Nasal Cannula 3.0 12/22/17 02:17 76 16 97 Nasal Cannula 3.0 12/22/17 00:11 36.5 63 17 133/68 (89) 95 Nasal Cannula 2.0 12/21/17 23:59 Nasal Cannula 3.0 General: Comfortable, no acute distress, morbidly obese Eyes: Sclerae anicteric, extraocular movements intact HENT: Oropharynx clear mucous membranes moist Neck: Normal carotid upstrokes, no bruits. JVD difficult to assess Lungs: Clear to auscultation bilaterally, no rhonchi or wheezes Cardiac: Irregularly irregular, 2/6 systolic ejection murmur, no rubs or gallops. Vascular: 2+ radial, diminished DP/PT pulses. Trace bilateral lower extremity edema with few telangiectasias, signs of chronic venous insufficiency Abdomen: Soft, obese, nontender, nondistended, positive bowel sounds. Extremities: Cool, intact capillary refill, small superficial less than 0.5 cm ulceration on the plantar aspect of right foot Skin: No rashes or lesions. Neuro: Nonfocal Psych: Alert, oriented, normal mood and affect Data Laboratory Results: Last 24 Hours Test 12/21/17 11:08 12/21/17 15:27 12/21/17 16:35 12/21/17 20:21 Bedside Glucose 328 mg/dl 391 mg/dl 362 mg/dl Activated Partial Thromboplast Time 70.0 SECONDS Partial Thromboplastin Ratio 2.7 Test 12/21/17 22:46 12/22/17 04:19 12/22/17 06:31 Activated Partial Thromboplast Time 57.1 SECONDS 61.8 SECONDS Partial Thromboplastin Ratio 2.2 2.4 White Blood Count 6.12 K/uL Red Blood Count 4.44 M/uL Hemoglobin 13.4 g/dL Hematocrit 39.0 % Mean Corpuscular Volume 87.8 fL Mean Corpuscular Hemoglobin 30.2 pg Mean Corpuscular Hemoglobin Concent 34.4 g/dl RDW Standard Deviation 45.6 fL RDW Coefficient of Variation 14.1 % Platelet Count 163 K/uL Mean Platelet Volume 9.9 fL Prothrombin Time 11.9 SECONDS Prothromb Time International Ratio 1.1 Sodium Level 130 mmol/L Potassium Level 4.5 mmol/L Chloride Level 95 mmol/L Carbon Dioxide Level 28 mmol/L Anion Gap 7.0 mmol/L Blood Urea Nitrogen 40 mg/dl Creatinine 1.84 mg/dl Est Creatinine Clear Calc Drug Dose 46.2 ml/min Estimated GFR () 39.8 Estimated GFR (Non- 34.3 BUN/Creatinine Ratio 22.0 Random Glucose 212 mg/dl Estimated Average Glucose 214 mg/dl Hemoglobin A1c 9.1 % Calcium Level 8.4 mg/dl Magnesium Level 2.0 mg/dl Bedside Glucose 221 mg/dl Limited echo (12/21/2017): Grossly normal size and wall thickness, LVEF 50-55% , akinetic basal inferior wall, akinetic apex and hypokinetic apical anterior wall RV not well visualized, severe MAC with mild mitral stenosis and mild mitral regurgitation; aortic stenosis not assessed. Assessment & Plan 1. Elevated troponin 2. History of coronary artery disease post 2 vessel CABG, prior STEMI involving vein graft to PDA, known occluded stent to LAD 3. Ischemic cardiomyopathy with akinetic apex 4. Hypertension 5. Permanent atrial fibrillation on intermittent anticoagulation 6. Acute influenza B infection 7. COPD 8. Type 2 diabetes 9. Questionable medical adherence -patient here with acute shortness of breath in the setting of influenza infection and baseline COPD. Found to have mildly elevated troponin but no real anginal symptoms and suspect myocardial injury more likely due to demand ischemia as opposed to true ACS event. Reviewed echocardiogram from yesterday and unchanged from previously described in the outpatient setting. In the setting of preserved LV function would forego additional ischemic evaluation as unlikely to have high risk disease amenable to revascularization at this time. -currently patient appears well perfused without significant congestion. Blood pressures slightly above goal. Atrial fibrillation persistent but well rate controlled. Going forward: --no need for additional ischemic evaluation at this time --continue secondary prevention medications for his coronary artery disease including aspirin, statin and current beta-bartolome --would increase current antianginal regimen. Continue metoprolol, increase nitropatch to 0.3 mg/hr --continue current anticoagulation with heparin while hospitalized and Coumadin for atrial fibrillation. Patient has questionable compliance with anticoagulation as an outpatient. Do not feel that has to be bridged with heparin until therapeutic Will continue to follow while in hospital.
--- NOTE | 2017-12-22 12:06 | Clinical Documentation Query ---
DARREN GOMEZ : CLINICAL DOCUMENTATION QUERY Clinical documentation includes a diagnosis of: Acute Respiratory Failure. ER documentation included:"Oxygen saturation was 94% on room air, "The patient is able to speak in complete sentences", and "Symmetrical (chest) expansion. no retractions no accessory muscle use". H&P noted "no apparent distress", "no respiratory distress", and "no accessory muscle use". No hypoxemia noted. Due to stringent requirements by our coding department, multiple clinical indicators associated with this diagnosis must be present in order for this to be coded/captured within the medical record. If appropriate, please document 2 or more of the following clinical indicators in daily progress notes and the discharge summary. If you feel the diagnosis of acute respiratory failure was made in error, or do not agree with it, simply discontinue documentation thereof. Acute Respiratory Failure indicators include: * Respirations >28 * Air hunger * Use of accessory muscles of respiration * Inability to speak in full sentences * Cyanosis * Pulse ox <90% RA or <95% on O2 *pH <7.35 or >7.45 * pO2 < 60 mm Hg (or 10mm below COPD patient's baseline) * pCO2 >50mm Hg (or 10mm above COPD patient's baseline) * mechanical ventilation * Increased work of breathing * Tachypnea IF IN AGREEMENT, YOU MUST DOCUMENT ABOVE DIAGNOSTIC STATEMENT IN DAILY PROGRESS NOTES AND DISCHARGE SUMMARY. This document is not part of the patient's record. Thank You, Jeancarlos Allen, ANDRADE [phone]
[2017-12-22] MEDS: HEPARIN 25,000 UNIT/500ML D5W 500 ML IV SCH (15:52)
[2017-12-22] MEDS: WARFARIN SOD 10 MG TAB PO SCH (16:02)
--- NOTE | 2017-12-22 18:31 | Hospitalist Progress Note ---
Hospitalist Progress Note Date of Service Dec 22, 2017. (Betsy Pacheco, PA-C) Subjective Pt evaluation today including: conversation w/ patient, physical exam, chart review, lab review, review of studies, conversation w/ community resource consultant (Dr. Parra), review of inpatient medication list Patient seen and evaluated. No acute events overnight. Reporting feeling that his breathing continues to improve. Still on supplemental O2 but likely could be weaned given underlying COPD could maintain sats at 88-92% States his physical activity is limited due to fatigue with ambulation. Did watch patient ambulate from bed to chair and was breathing a little bit heavier but stated he felt fine. Reports chronic ambulatory issues due to peripheral neuropathy stating he " walks like he is drunk" and has balance issues Reports that he is hoping to start stationary biking as noone wants him to use a treadmill due to his imbalance Constitutional: No fever, No chills ENT: + nasal symptoms Respiratory: + cough, + dyspnea on exertion, No shortness of breath Cardiovascular: No chest pain Abdomen: No pain, No nausea, No vomiting, No diarrhea, No constipation Musculoskeletal: No calf pain Male : No dysuria Neurologic: + numbness/tingling (b/l hands and feet) Heme: No abnormal bleeding/bruising (Betsy Pacheco, PA-C) Medications Current Inpatient Medications Medications (Trade) Dose Ordered Sig/Lei Route Start Time Stop Time Status Last Admin Dose Admin Oseltamivir Phosphate (Tamiflu Susp) 30 mg BID PO 12/21/17 09:00 12/26/17 08:59 12/22/17 08:27 30 MG Acetaminophen (Tylenol Tab) 650 mg Q4H PRN PO 12/21/17 00:45 01/20/18 00:44 Al Hydrox/Mg Hydrox/Simethicone (Maalox Max Susp) 15 ml Q4H PRN PO 12/21/17 00:45 01/20/18 00:44 Magnesium Hydroxide (Milk Of Magnesia Susp) 30 ml Q12H PRN PO 12/21/17 00:45 01/20/18 00:44 Ondansetron HCl (Zofran Inj) 4 mg Q6H PRN IV 12/21/17 00:45 01/20/18 00:44 Nitroglycerin (Nitrostat Tab) 0.4 mg UD PRN SL 12/21/17 00:45 01/20/18 00:44 Morphine Sulfate (MoRPHine SULFATE INJ) 2 mg Q30M PRN IV 12/21/17 00:45 01/04/18 00:44 Polyethylene (Miralax Powder Packet) 17 gm DAILY PRN PO 12/21/17 00:45 01/20/18 00:44 Aspirin (Ecotrin Tab) 81 mg DAILY PO 12/21/17 09:00 01/20/18 08:59 12/22/17 08:18 81 MG Atorvastatin Calcium (Lipitor Tab) 40 mg HS PO 12/21/17 21:00 01/20/18 20:59 12/21/17 21:12 40 MG Finasteride (Proscar Tab) 5 mg DAILY PO 12/21/17 09:00 01/20/18 08:59 12/22/17 08:18 5 MG Furosemide (Lasix Tab) 40 mg DAILY PO 12/21/17 09:00 01/20/18 08:59 12/22/17 08:19 40 MG Isosorbide Mononitrate (Imdur Ext Rel Tab) 60 mg DAILY PO 12/21/17 09:00 01/20/18 08:59 12/22/17 08:18 60 MG Memantine (Namenda Tab) 10 mg DAILY PO 12/21/17 09:00 01/20/18 08:59 12/22/17 08:17 10 MG Metoprolol Tartrate (Lopressor Tab) 25 mg BID PO 12/21/17 09:00 01/20/18 08:59 12/22/17 08:18 25 MG Nitrofurantoin Macrocrystals (Macrodantin Cap) 50 mg QPM PO 12/21/17 21:00 12/26/17 20:59 12/21/17 21:11 50 MG Nitroglycerin (Nitro-Dur 0.2 Mg/Hr Patch) 1 patch DAILY TD 12/21/17 09:00 01/20/18 08:59 12/22/17 08:19 1 PATCH Ranitidine HCl (zANTac TAB) 300 mg HS PO 12/21/17 21:00 01/20/18 20:59 12/21/17 21:11 300 MG Sertraline HCl (Zoloft Tab) 50 mg DAILY PO 12/21/17 09:00 01/20/18 08:59 12/22/17 08:18 50 MG Tamsulosin HCl (Flomax Cap) 0.8 mg QPM PO 12/21/17 21:00 01/20/18 20:59 12/21/17 21:12 0.8 MG Miscellaneous Information (Order Awaiting Action) 1 ea QS N/A 12/21/17 08:00 01/20/18 07:59 Insulin Glargine (Lantus Solostar Pen) 30 units HS SC 12/21/17 03:15 01/20/18 03:14 12/21/17 21:36 30 UNITS Heparin Sodium/ Dextrose 500 ml @ 27 mls/hr [id number] IV 12/21/17 01:15 01/20/18 01:14 12/22/17 15:52 27 MLS/HR Albuterol/ Ipratropium (Duoneb) 3 ml Q6R INH 12/21/17 03:00 01/20/18 02:59 12/22/17 14:18 3 ML Glucose (Glucose 40% Gel) 15-30 GRAMS 15 GRAMS... UD PRN PO 12/21/17 02:00 01/20/18 01:59 Glucose (Glucose Chew Tab) 4-8 Tablets 4 Tabl... UD PRN PO 12/21/17 02:00 01/20/18 01:59 Dextrose (Dextrose 50% 50ML Syringe) 25-50ML OF 50% DW IV FOR... UD PRN IV 12/21/17 02:00 01/20/18 01:59 Glucagon (Glucagon Inj) 1 mg UD PRN SQ 12/21/17 02:00 01/20/18 01:59 Miscellaneous (Remove Nitro-Dur Patch) 1 ea DAILY@21 N/A 12/21/17 21:00 01/20/18 20:59 12/21/17 21:13 1 EA Insulin Aspart (novoLOG ASPART) SLIDING SCALE If C... ACHS SC 12/21/17 11:00 01/20/18 10:59 12/22/17 17:40 8 UNITS Warfarin Sodium (Coumadin Tab) 10 mg DAILY@16 PO 12/22/17 16:00 01/21/18 15:59 12/22/17 16:02 10 MG Methylprednisolone Sodium Succinate 40 mg/Syringe 0.64 ml @ 1.5 mls/min Q8H IV 12/22/17 00:00 01/20/18 03:59 12/22/17 16:01 1.5 MLS/MIN Sodium Chloride ([place] Nasal [place]) 2 sprays Q1H PRN NA 12/22/17 10:45 01/21/18 10:44 (Betsy Pacheco PA-C) Objective Vital Signs Date Time Temp Pulse Resp B/P (MAP) Pulse Ox O2 Delivery O2 Flow Rate FiO2 12/22/17 16:29 36.4 69 20 112/67 (82) 98 Nasal Cannula 2.0 12/22/17 16:00 Nasal Cannula 3.0 12/22/17 14:20 72 20 98 Nasal Cannula 3.0 12/22/17 12:00 Nasal Cannula 3.0 12/22/17 11:35 36.3 78 22 148/86 (106) 96 3.0 12/22/17 08:00 Nasal Cannula 3.0 12/22/17 07:40 36.7 73 22 152/91 (111) 95 3.0 12/22/17 07:08 72 20 96 Nasal Cannula 3.0 12/22/17 04:28 36.4 79 22 158/94 (115) 94 Nasal Cannula 2.0 12/22/17 04:00 Nasal Cannula 3.0 12/22/17 02:17 76 16 97 Nasal Cannula 3.0 12/22/17 00:11 36.5 63 17 133/68 (89) 95 Nasal Cannula 2.0 12/21/17 23:59 Nasal Cannula 3.0 12/21/17 20:00 Nasal Cannula 3.0 12/21/17 19:36 36.7 20 117/68 (84) 94 Nasal Cannula 3.0 12/21/17 18:58 73 16 97 Nasal Cannula 3.0 (Betsy Pacheco, PA-C) Physical Exam General Appearance: WD/WN, no apparent distress, + obese Eyes: sclerae normal ENT: hearing grossly normal Neck: supple, no JVD, trachea midline Respiratory/Chest: no respiratory distress, no accessory muscle use, + decreased breath sounds (bases b/l), + crackles (bases b/l) Cardiovascular: + systolic murmur, + irregularly irregular Abdomen: normal bowel sounds, non tender, soft Extremities: + swelling (trace b/l lower extremities) Neurologic/Psychiatric: alert Skin: normal color, warm/dry, + pertinent finding (callus to R plantar aspect of foot in the middle pad; small ulceration between 4th and 5th toe on R foot) (Betsy Pacheco, PA-C) Laboratory Results Last 24 Hours Test 12/21/17 20:21 12/21/17 22:46 12/22/17 04:19 12/22/17 06:31 Bedside Glucose 362 mg/dl 221 mg/dl Activated Partial Thromboplast Time 57.1 SECONDS 61.8 SECONDS Partial Thromboplastin Ratio 2.2 2.4 White Blood Count 6.12 K/uL Red Blood Count 4.44 M/uL Hemoglobin 13.4 g/dL Hematocrit 39.0 % Mean Corpuscular Volume 87.8 fL Mean Corpuscular Hemoglobin 30.2 pg Mean Corpuscular Hemoglobin Concent 34.4 g/dl RDW Standard Deviation 45.6 fL RDW Coefficient of Variation 14.1 % Platelet Count 163 K/uL Mean Platelet Volume 9.9 fL Prothrombin Time 11.9 SECONDS Prothromb Time International Ratio 1.1 Sodium Level 130 mmol/L Potassium Level 4.5 mmol/L Chloride Level 95 mmol/L Carbon Dioxide Level 28 mmol/L Anion Gap 7.0 mmol/L Blood Urea Nitrogen 40 mg/dl Creatinine 1.84 mg/dl Est Creatinine Clear Calc Drug Dose 46.2 ml/min Estimated GFR () 39.8 Estimated GFR (Non- 34.3 BUN/Creatinine Ratio 22.0 Random Glucose 212 mg/dl Estimated Average Glucose 214 mg/dl Hemoglobin A1c 9.1 % Calcium Level 8.4 mg/dl Magnesium Level 2.0 mg/dl Test 12/22/17 11:19 12/22/17 16:28 Bedside Glucose 269 mg/dl 241 mg/dl (Betsy Pacheco, PA-C) Assessment and Plan Pt is a 76 y/o M, CAD, chronic diastolic CHF, CKD 2-3, chronic A flutter on coumadin, DM2, morbid obesity, dementia, COPD, and remote colon CA. Presents primarily with progressive SOB and weakness. The pt is a poor historian and could not confirm a fever. He denies CP, N/V, diaphoresis or dysuria. Initial labs are notable for an elevated troponin and a (+) rapid flu. Influenza B and COPD Exacerbation: - Wean O2 to maintain saturations of 88-92% to prevent CO2 retention - Tamiflu 30 mg BID - Reduce to Methylprednisolone 40 mg IV Q12H and continue taper - Duonebs LEI CAD S/P CABG x 2 and Previous STEMI with Elevated Trops (Demand Ischemia) and HTN/HLD: - Updated echo this admission with new akinesis of apex; having atypical intermittent CP - ASA 81 mg daily, Lipitor 40 mg daily, Imdur 60 mg daily, Nitro patch - Cardiology following - discussed with Dr. Parra at bedside - no further ischemic work-up necessary at this time Persistent Atrial Fibrillation: Rate Controlled - Continue heparin gtt with Coumadin bridge - level on non-compliance with regimen at home -- INR 1.1 - Lopressor 25 mg BID Chronic Diastolic CHF: - Volume status difficult to assess due to body habitus - Lasix 40 mg daily CKD Stage III: STABLE - Continue to monitor T2DM: UNCONTROLLED - A1c 9 - Lantus 30 units SC daily and SSI - Continue to monitor foot for worsening infections - patient admits to his dog constantly licking his foot wounds Dementia: STABLE - Namenda 10 mg daily DVT Prophylaxis: Heparin/Coumadin Code Status: FULL RESUSCITATION Disposition: Continue O2 wean and hopeful D/C next 1-2 days Continued [facility] stay due to: multiple IV medications needed Discharge planning: home (Betsy Pacheco, PAAlexandraC) Attending Attestation - Pt seen/examined, chart reviewed, care plan d/w [facility] Pacheco. I agree w/ the lema components of her documentation. Pt states "I have problems with my memory" He then goes on to state that his breathing is at baseline Denies cp tele stable VSS no fever gen - nad neck - no JVD heart - irregular lungs - mild wheezing b/l, decreased BS b/l abd - soft, NT, ND ext - no edema psych - mild confusion, suspect this is baseline for him Na 130 Cr 1.8 A/P: Influenza B infection - finish 5-day course of tamiflu. Acute bronchitis (vs COPD exacerbation) due to influenza - improved; wean steroids hyponatremia - somewhat chronic, likely from lasix use - follow memory difficulties/dementia - check b12, b1, vitamin D levels in am PT, OT evals to ensure he is safe to return home abnormal echo with LV wall motion abnormalities; appreciate cards consult, no cath or invasive testing at this time Idania FARR MD (Ramsey Farr MD)
[2017-12-22] MEDS: TAMSULOSIN HCL 0.4 MG CAP PO SCH (20:53)
[2017-12-22] MEDS: NITROFURANTOIN MACROCRYSTALS 50 MG CAP PO SCH (20:53)
[2017-12-22] MEDS: RANITIDINE HCL 150 MG TAB PO SCH (20:53)
[2017-12-22] MEDS: ATORVASTATIN 40 MG TAB PO SCH (20:53)
[2017-12-22] MEDS: INSULIN GLARGINE SOLOSTAR 100 UNITS/ML 3 ML PEN SC SCH (20:57)
[2017-12-23] VITALS (9 sets, daily range): BP systolic 107–157; BP diastolic 62–99; PULSE 59–97; TEMP 36.4–36.7; O2SAT 90–98
[2017-12-23] MEDS: ALBUT/IPRATROP 3MG/0.5MG NEB 3 ML VIAL INH SCH ×4 (02:27→20:01)
[2017-12-23] MEDS: METHYLPREDNISOLONE IV 40 MG in SYRINGE 0 ML IV SCH ×2 (04:08→16:31)
[2017-12-23] MEDS ORDERED: COUGH DROP (SUGAR FREE) LOZ 24 LOZ/1 BOX LOZ ONE (05:42)
[2017-12-23 06:26] LABS: PTT PATIENT 72.1 SECONDS (21.0-31.0)
[2017-12-23] MEDS ORDERED: ERGOCALCIFEROL 50,000 INTER.UNIT CAP PO ONE (08:00)
[2017-12-23] MEDS: ADVAIR~ORDER AWAITING ACTION SCH ×3 (08:00→23:40)
[2017-12-23] MEDS: OSELTAMIVIR PHOSPHATE SUSP 30 MG/5 ML UDP PO SCH ×2 (08:18→20:56)
[2017-12-23] MEDS: FUROSEMIDE 40 MG TAB PO SCH (08:18)
[2017-12-23] MEDS: NITROGLYCERIN 0.2 MG/HR PATCH TD SCH (08:19)
[2017-12-23] MEDS: ISOSORBIDE MONONITRATE 60 MG TABCR PO SCH (08:19)
[2017-12-23] MEDS: METOPROLOL TARTRATE 25 MG TAB PO SCH ×2 (08:19→20:23)
[2017-12-23] MEDS: FINASTERIDE 5 MG TAB PO SCH (08:20)
[2017-12-23] MEDS: ASPIRIN 81 MG ECTAB PO SCH (08:20)
[2017-12-23] MEDS: SERTRALINE HCL 50 MG TAB PO SCH (08:20)
[2017-12-23] MEDS: MEMANTINE 10 MG TAB PO SCH (08:20)
[2017-12-23 08:26] LABS: INR 1.3 (0.9-1.1)
[2017-12-23] MEDS: INSULIN ASPART 100 UNITS/ML 3 ML PEN SC SCH ×4 (08:31→22:20)
[2017-12-23] MEDS ORDERED: BENZONATATE 100MG CAP PO ONE (10:30)
[2017-12-23] MEDS ORDERED: GUAIFENESIN 600 MG TABCR PO ONE (10:30)
[2017-12-23] MEDS: HEPARIN 25,000 UNIT/500ML D5W 500 ML IV SCH (11:14)
[2017-12-23 13:18] LABS: PTT PATIENT 61.3 SECONDS (21.0-31.0)
[2017-12-23] MEDS: BENZONATATE 100MG CAP PO SCH ×2 (13:49→20:18)
--- NOTE | 2017-12-23 15:00 | Hospitalist Progress Note ---
Hospitalist Progress Note Date of Service Dec 23, 2017. (Betsy Pacheco PA-C) Subjective Pt evaluation today including: conversation w/ patient, conversation w/ family , physical exam, lab review, review of inpatient medication list Patient seen and evaluated. No acute events overnight. Remains in A Fib with rate control. Remains on RA and breathing feels baseline. Reports cough is more productive and bothersome today. Feels well otherwise. INR slowly improving at 1.3 today. Constitutional: No fever, No chills ENT: + nasal symptoms Respiratory: + cough, + sputum, No shortness of breath Cardiovascular: No chest pain Abdomen: No pain, No nausea, No vomiting, No diarrhea, No constipation Musculoskeletal: No calf pain Male : No dysuria Heme: No abnormal bleeding/bruising (Betsy Pacheco PA-C) Medications Current Inpatient Medications Medications (Trade) Dose Ordered Sig/Lei Route Start Time Stop Time Status Last Admin Dose Admin Oseltamivir Phosphate (Tamiflu Susp) 30 mg BID PO 12/21/17 09:00 12/26/17 08:59 12/23/17 08:18 30 MG Acetaminophen (Tylenol Tab) 650 mg Q4H PRN PO 12/21/17 00:45 01/20/18 00:44 Al Hydrox/Mg Hydrox/Simethicone (Maalox Max Susp) 15 ml Q4H PRN PO 12/21/17 00:45 01/20/18 00:44 Magnesium Hydroxide (Milk Of Magnesia Susp) 30 ml Q12H PRN PO 12/21/17 00:45 01/20/18 00:44 Ondansetron HCl (Zofran Inj) 4 mg Q6H PRN IV 12/21/17 00:45 01/20/18 00:44 Nitroglycerin (Nitrostat Tab) 0.4 mg UD PRN SL 12/21/17 00:45 01/20/18 00:44 Morphine Sulfate (MoRPHine SULFATE INJ) 2 mg Q30M PRN IV 12/21/17 00:45 01/04/18 00:44 Polyethylene (Miralax Powder Packet) 17 gm DAILY PRN PO 12/21/17 00:45 01/20/18 00:44 Aspirin (Ecotrin Tab) 81 mg DAILY PO 12/21/17 09:00 01/20/18 08:59 12/23/17 08:20 81 MG Atorvastatin Calcium (Lipitor Tab) 40 mg HS PO 12/21/17 21:00 01/20/18 20:59 12/22/17 20:53 40 MG Finasteride (Proscar Tab) 5 mg DAILY PO 12/21/17 09:00 01/20/18 08:59 12/23/17 08:20 5 MG Furosemide (Lasix Tab) 40 mg DAILY PO 12/21/17 09:00 01/20/18 08:59 12/23/17 08:18 40 MG Isosorbide Mononitrate (Imdur Ext Rel Tab) 60 mg DAILY PO 12/21/17 09:00 01/20/18 08:59 12/23/17 08:19 60 MG Memantine (Namenda Tab) 10 mg DAILY PO 12/21/17 09:00 01/20/18 08:59 12/23/17 08:20 10 MG Metoprolol Tartrate (Lopressor Tab) 25 mg BID PO 12/21/17 09:00 01/20/18 08:59 12/23/17 08:19 25 MG Nitrofurantoin Macrocrystals (Macrodantin Cap) 50 mg QPM PO 12/21/17 21:00 12/26/17 20:59 12/22/17 20:53 50 MG Nitroglycerin (Nitro-Dur 0.2 Mg/Hr Patch) 1 patch DAILY TD 12/21/17 09:00 01/20/18 08:59 12/23/17 08:19 1 PATCH Ranitidine HCl (zANTac TAB) 300 mg HS PO 12/21/17 21:00 01/20/18 20:59 12/22/17 20:53 300 MG Sertraline HCl (Zoloft Tab) 50 mg DAILY PO 12/21/17 09:00 01/20/18 08:59 12/23/17 08:20 50 MG Tamsulosin HCl (Flomax Cap) 0.8 mg QPM PO 12/21/17 21:00 01/20/18 20:59 12/22/17 20:53 0.8 MG Miscellaneous Information (Order Awaiting Action) 1 ea QS N/A 12/21/17 08:00 01/20/18 07:59 Insulin Glargine (Lantus Solostar Pen) 30 units HS SC 12/21/17 03:15 01/20/18 03:14 12/22/17 20:57 30 UNITS Heparin Sodium/ Dextrose 500 ml @ 25 mls/hr Q20H IV 12/21/17 01:15 01/20/18 01:14 12/23/17 11:14 25 MLS/HR Albuterol/ Ipratropium (Duoneb) 3 ml Q6R INH 12/21/17 03:00 01/20/18 02:59 12/23/17 14:15 3 ML Glucose (Glucose 40% Gel) 15-30 GRAMS 15 GRAMS... UD PRN PO 12/21/17 02:00 01/20/18 01:59 Glucose (Glucose Chew Tab) 4-8 Tablets 4 Tabl... UD PRN PO 12/21/17 02:00 01/20/18 01:59 Dextrose (Dextrose 50% 50ML Syringe) 25-50ML OF 50% DW IV FOR... UD PRN IV 12/21/17 02:00 01/20/18 01:59 Glucagon (Glucagon Inj) 1 mg UD PRN SQ 12/21/17 02:00 01/20/18 01:59 Miscellaneous (Remove Nitro-Dur Patch) 1 ea DAILY@21 N/A 12/21/17 21:00 01/20/18 20:59 12/22/17 20:58 1 EA Insulin Aspart (novoLOG ASPART) SLIDING SCALE If C... ACHS SC 12/21/17 11:00 01/20/18 10:59 12/23/17 11:46 15 UNITS Warfarin Sodium (Coumadin Tab) 10 mg DAILY@16 PO 12/22/17 16:00 01/21/18 15:59 12/22/17 16:02 10 MG Sodium Chloride (Braman Nasal Twining) 2 sprays Q1H PRN NA 12/22/17 10:45 01/21/18 10:44 12/23/17 11:10 2 SPRAYS Methylprednisolone Sodium Succinate 40 mg/Syringe 0.64 ml @ 1.5 mls/min Q12H IV 12/23/17 04:00 01/20/18 03:59 12/23/17 04:08 1.5 MLS/MIN Guaifenesin (Mucinex Contr Rel Tab) 1,200 mg Q12 PO 12/23/17 21:00 01/22/18 20:59 Benzonatate (Tessalon Perles Cap) 100 mg TID PO 12/23/17 14:00 01/22/18 13:59 12/23/17 13:49 100 MG (Betsy Pacheco PA-C) Objective Vital Signs Date Time Temp Pulse Resp B/P (MAP) Pulse Ox O2 Delivery O2 Flow Rate FiO2 12/23/17 14:43 36.4 69 20 94 1.0 12/23/17 14:16 69 20 94 Nasal Cannula 12/23/17 11:29 36.4 74 18 107/67 (80) 90 Room Air 12/23/17 07:46 36.5 69 18 157/99 (118) 95 Room Air 12/23/17 07:18 64 20 95 Nasal Cannula 1.0 12/23/17 04:13 36.7 59 18 116/62 (80) 93 Room Air 12/23/17 04:00 Nasal Cannula 2.0 12/23/17 00:00 98 Nasal Cannula 2.0 12/22/17 23:28 36.6 65 18 147/78 (101) 98 Nasal Cannula 2.0 12/22/17 20:58 36.9 72 18 130/74 (92) 95 Nasal Cannula 2.0 12/22/17 20:00 Nasal Cannula 2.0 12/22/17 16:29 36.4 69 20 112/67 (82) 98 Nasal Cannula 2.0 12/22/17 16:00 Nasal Cannula 3.0 (Betsy Pacheco PA-C) Physical Exam General Appearance: WD/WN, no apparent distress Eyes: sclerae normal ENT: hearing grossly normal Neck: supple, no JVD, trachea midline Respiratory/Chest: no respiratory distress, no accessory muscle use, + decreased breath sounds, + crackles (bases) Cardiovascular: + irregularly irregular Abdomen: normal bowel sounds, non tender, soft Extremities: + pertinent finding (cracked/dry b/l feet; callus to R plantar aspect of pad of foot) Neurologic/Psychiatric: alert Skin: normal color (Betsy Pacheco, NANCYC) Laboratory Results Last 24 Hours Test 12/22/17 16:28 12/22/17 20:51 12/23/17 05:39 12/23/17 06:38 Bedside Glucose 241 mg/dl 251 mg/dl 202 mg/dl Prothrombin Time 13.7 SECONDS Prothromb Time International Ratio 1.3 Activated Partial Thromboplast Time 72.1 SECONDS Partial Thromboplastin Ratio 2.8 Vitamin B12 Level 438 pg/mL 25-Hydroxy Vitamin D Total 14.6 ng/ml Test 12/23/17 11:16 12/23/17 12:50 Bedside Glucose 271 mg/dl Activated Partial Thromboplast Time 61.3 SECONDS Partial Thromboplastin Ratio 2.4 (Betsy Pacheco, PA-C) Assessment and Plan Pt is a 76 y/o M, CAD, chronic diastolic CHF, CKD 2-3, chronic A flutter on coumadin, DM2, morbid obesity, dementia, COPD, and remote colon CA. Presents primarily with progressive SOB and weakness. The pt is a poor historian and could not confirm a fever. He denies CP, N/V, diaphoresis or dysuria. Initial labs are notable for an elevated troponin and a (+) rapid flu. Influenza B and COPD Exacerbation: IMPROVING - Currently on RA with appropriate sats; acceptable sats > 88% - Tamiflu 30 mg BID until 12/26 - Methylprednisolone 40 mg IV Q12H and will convert to Prednisone 40 mg daily tomorrow AM - Mucinex BID and Tessalon perles - Duonebs LEI CAD S/P CABG x 2 and Previous STEMI with Elevated Trops (Demand Ischemia) and HTN/HLD: - Updated echo this admission with new akinesis of apex; having atypical intermittent CP - ASA 81 mg daily, Lipitor 40 mg daily, Imdur 60 mg daily, Nitro patch - Cardiology following - - no further ischemic work-up necessary at this time Persistent Atrial Fibrillation: Rate Controlled - Continue heparin gtt with Coumadin bridge - possible non-compliance with regimen at home -- INR 1.3 - Lopressor 25 mg BID Chronic Diastolic CHF: - Volume status difficult to assess due to body habitus - Lasix 40 mg daily CKD Stage III: STABLE - Continue to monitor T2DM: UNCONTROLLED - A1c 9 - Lantus 30 units SC daily and SSI - Continue to monitor foot for worsening infections - patient admits to his dog constantly licking his foot wounds Dementia: STABLE - Namenda 10 mg daily DVT Prophylaxis: Heparin/Coumadin Code Status: FULL RESUSCITATION Disposition: Possible D/C tomorrow; stable for transfer to medical - Recommend podiatry referral - patient with uncontrolled diabetes and peripheral neuropathy. Tried to educate patient on proper foot hygiene in the setting of diabetes however unsure how receptive he was to this. Reports he will use nail clippers to slowly remove calluses from his feet, clips his toenails which bleed and applies hydrogen peroxide, states he almost never wears socks or shoes, and has an odd obsession with allowing his dog to lick foot wounds reporting this has healed wounds in the past? Discharge planning: home (Betsy Pacheco, PA-C) Attending Attestation - Pt seen/examined, chart reviewed, care plan d/w CIRA Pacheco. I agree w/ the lema components of her documentation. Pt w/ cough but no other complaints eating well awaiting therapy evals VSS no fever gen - nad neck - no JVD heart - irregular lungs - mild wheezing b/l abd - soft, NT, ND ext - no edema A/P: Influenza B infection - finish 5-day course of tamiflu. Clinically resolved. Day #4 of tamiflu. Acute bronchitis (vs COPD exacerbation) due to influenza - improved; agree w/ wean steroids again. hyponatremia - somewhat chronic, likely from lasix use - follow with daily BMP. memory difficulties/dementia - replace low vitamin D; start thiamine while awaiting B1 level; B12 wnl. Probably vascular dementia vs previous heavy etoh use vs other. PT, OT evals to ensure he is safe to return home abnormal echo with LV wall motion abnormalities; appreciate cards consult, no cath or invasive testing at this time Idania TA MD (Ramsey Ta MD)
[2017-12-23] MEDS: WARFARIN SOD 10 MG TAB PO SCH (16:32)
[2017-12-23] MEDS: GUAIFENESIN 600 MG TABCR PO SCH (20:18)
[2017-12-23] MEDS: TAMSULOSIN HCL 0.4 MG CAP PO SCH (20:19)
[2017-12-23] MEDS: NITROFURANTOIN MACROCRYSTALS 50 MG CAP PO SCH (20:19)
[2017-12-23] MEDS: THIAMINE HCL 100 MG TAB PO SCH (20:22)
[2017-12-23] MEDS: ATORVASTATIN 40 MG TAB PO SCH (20:22)
[2017-12-23] MEDS: RANITIDINE HCL 150 MG TAB PO SCH (20:55)
[2017-12-23] MEDS ORDERED: INSULIN GLARGINE SOLOSTAR 100 UNITS/ML 3 ML PEN SC SCH (22:00)
[2017-12-24] VITALS (7 sets, daily range): BP systolic 128–175; BP diastolic 71–92; PULSE 63–78; TEMP 36.6–36.7; O2SAT 92–96
[2017-12-24] MEDS: ALBUT/IPRATROP 3MG/0.5MG NEB 3 ML VIAL INH SCH ×3 (02:00→14:45)
[2017-12-24 07:04] LABS: HEMATOCRIT 39.2 % (42-52); HEMOGLOBIN 13.6 g/dL (14.0-18.0); MEAN CELL VOLUME 86.9 fL (80-100); MEAN CORPUSCULAR HEMOGLOBIN 30.2 pg (25-34); MEAN CORPUSCULAR HGB CONC 34.7 g/dl (32-36); PLATELET COUNT 141 K/uL (130-400); RED CELL DISTRIBUTION WIDTH CV 14.2 % (11.5-14.5); RED CELL DISTRIBUTION WIDTH SD 45.3 fL (36.4-46.3)
[2017-12-24 07:32] LABS: CALCIUM 8.3 mg/dl (8.5-10.1); CREATININE 1.66 mg/dl (0.60-1.40); POTASSIUM 4.1 mmol/L (3.5-5.1)
[2017-12-24 07:42] LABS: INR 1.7 (0.9-1.1)
[2017-12-24] MEDS: ADVAIR~ORDER AWAITING ACTION SCH ×2 (07:47→16:00)
[2017-12-24] MEDS: ASPIRIN 81 MG ECTAB PO SCH (07:48)
[2017-12-24] MEDS: ISOSORBIDE MONONITRATE 60 MG TABCR PO SCH (07:48)
[2017-12-24 07:49] LABS: PTT PATIENT 56.9 SECONDS (21.0-31.0)
[2017-12-24] MEDS: FUROSEMIDE 40 MG TAB PO SCH (07:49)
[2017-12-24] MEDS: METOPROLOL TARTRATE 25 MG TAB PO SCH (07:50)
[2017-12-24] MEDS: MEMANTINE 10 MG TAB PO SCH (07:50)
[2017-12-24] MEDS: FINASTERIDE 5 MG TAB PO SCH (07:51)
[2017-12-24] MEDS: BENZONATATE 100MG CAP PO SCH ×2 (07:54→14:46)
[2017-12-24] MEDS: THIAMINE HCL 100 MG TAB PO SCH (07:54)
[2017-12-24] MEDS: SERTRALINE HCL 50 MG TAB PO SCH (07:54)
[2017-12-24] MEDS: GUAIFENESIN 600 MG TABCR PO SCH (07:57)
[2017-12-24] MEDS: OSELTAMIVIR PHOSPHATE SUSP 30 MG/5 ML UDP PO SCH ×2 (08:01→17:08)
[2017-12-24] MEDS: NITROGLYCERIN 0.2 MG/HR PATCH TD SCH (08:10)
[2017-12-24] MEDS: HEPARIN 25,000 UNIT/500ML D5W 500 ML IV SCH (08:19)
[2017-12-24] MEDS: INSULIN ASPART 100 UNITS/ML 3 ML PEN SC SCH ×3 (09:33→17:44)
--- NOTE | 2017-12-24 10:21 | DIAGNOSTIC IMAGING REPORT ---
CHEST 2 VIEWS ROUTINE CLINICAL HISTORY: Influenza. Right-sided wheezing. COMPARISON STUDY: 12/20/2017 FINDINGS: The heart is enlarged. There are postsurgical changes of a midline sternotomy. There is a right-sided A-Port catheter. There is resolving pulmonary edema. There is no focal pulmonary consolidation.[ IMPRESSION: Resolving congestive failure/interstitial edema. Persistent cardiomegaly. No evidence of focal pulmonary consolidation Electronically signed by: Nagi Springer M.D. 12/24/2017 10:20 AM Dictated Date/Time: 12/24/2017 10:19 AM
[2017-12-24] MEDS ORDERED: WARFARIN SOD 7.5 MG TAB PO STA (16:45)
[2017-12-24] MEDS ORDERED: PRED10TA PO (16:55)
[2017-12-24] MEDS ORDERED: GFNSR600 PO (16:55)
[2017-12-24] MEDS ORDERED: TMFUDL30 PO (16:55)
[2017-12-24] MEDS ORDERED: INSU1INJ33 SQ ×2 (16:55→16:56)
[2017-12-24] MEDS ORDERED: BENZ100C7 PO (16:55)
[2017-12-24] MEDS ORDERED: THM100 PO (16:55)
--- NOTE | 2017-12-24 17:17 | Discharge Instructions ---
Discharge Instructions Date of Service Dec 24, 2017. Admission Reason for Admission: Influenza ("the flu") B infection Discharge Discharge Diagnosis / Problem: Influneza B infection, Bronchitis Discharge Goals Goal(s): Learn about illness, Diagnostic testing, Therapeutic intervention Activity Recommendations Activity Limitations: resume your previous activity (as tolerated) . Instructions / Follow-Up Instructions / Follow-Up From Dr. Farr - You were treated for influenza type B infection ("the flu"). The flu caused bronchitis; we treated this with prednisone and nebulizer treatments. Multiple chest x-rays did NOT show any pneumonia. Your heart function was stable during this hospital stay. Your other medical problems remained stable as well. You were seen by physical therapy who recommended that a therapist come out to your home to help with your balance & strength. This has been set up for you. I am also recommending that a home health nurse come out to your home to assist with your medications. Please do the following - 1. treatment for the flu - * take tamiflu 5ml twice a day for 1 day * start this TOMORROW morning on 12/25/17 * you are likely not contagious at this time to other individuals 2. bronchitis - * take a prednisone course for 6 days * start this TOMORROW morning on 12/25/17 * continue your usual inhalers 3. cough - * you can purchase [id number] mucinex and take up to 1200mg twice a day NEEDED for cough * I have also prescribed you "tessalon pearles" for your cough; you can take 1 capsule every 8 hours as needed for cough; do not crush or chew the capsule 4. diabetes - * please increase your Tresiba to 35 units at bedtime (you were previously taking 30 units) * continue your other insulin (Novolog) with meals 5. low vitamin D level - * take ergocalciferol 18436 unit capsule ONCE A WEEK for 8 weeks * prescription provided * also take thiamine 100mg twice a day for 30 days; prescription provided 6. Be sure to check your weight ever day at home. If you gain more than 2-3 pounds in 1-2 days please let your painter touch up (heart doctor) know right away. 7. Foot care - please do not attempt to remove calluses on your feet. Please see a lawn care specialist for any foot problem. 8. Follow-up - * you have a scheduled follow-up appointment with your family doctor next week 9. Return to [facility] if - * you have fever over 100.5 degrees * you have worsening breathing/shortness of breath * you develop chest pain * you have uncontrolled blood sugars (>300) despite taking your insulins * any other concerns 10. Coumadin level (INR) - * please have your INR level checked within 2-3 days by your coumadin doctor * continue your coumadin per previous dosing * of note - you received your coumadin already at [facility] just prior to going home; you do NOT need to take any coumadin on 12/24/17; resume your coumadin TOMORROW on Tuesday * your INR today is 1.7 Current Hospital Diet Patient's current hospital diet: Diabetes Type 2 Diet Discharge Diet Recommended Diet: AHA Diet (Heart Healthy), Diabetes Type 2 Diet Fluid Restriction: 1800 ml (7 cups) Procedures Procedures Performed: 1. echocardiogram - showing low-normal heart function. 2. chest x-ray with no pneumonia. Pending Studies Studies pending at discharge: no Laboratory Results Hemoglobin A1c Test 12/22/17 04:19 Range/Units Estimated Average Glucose 214 mg/dl Hemoglobin A1c 9.1 H 4.5-5.6 % Medical Emergencies . Who to Call and When: Medical Emergencies: If at any time you feel your situation is an emergency, please call 911 immediately. . Non-Emergent Contact Non-Emergency issues call your: Primary Care Provider Call Non-Emergent contact if: temperature is above 100.5, you have any medication questions . . "Provider Documentation" section prepared by Ramsey Farr. .
[2017-12-24] MEDS ORDERED: ERGO500037 PO (17:18)
== END 2017-12-24 18:00 | disposition home health service (06) | DRG 193 ==
LOC: C.EDB 21:06 → C.2T 12-21 00:41 → UNDOADMIN 12-21 00:41 → ENRESERV 12-21 00:58 → C.MS4W 12-23 15:25
PROVIDERS: ADMIT Internal Medicine; ATTEND Internal Medicine
DX: J10.1 Influenza due to other identified influenza virus with other respiratory manifestations (principal); J96.01 Acute respiratory failure with hypoxia; J44.1 Chronic obstructive pulmonary disease with (acute) exacerbation; I13.0 Hypertensive heart and chronic kidney disease with heart failure and stage 1 through stage 4 chronic kidney disease, or unspecified chronic kidney disease; I50.32 Chronic diastolic (congestive) heart failure; I48.92 Unspecified atrial flutter; I24.8 Other forms of acute ischemic heart disease; J44.0 Chronic obstructive pulmonary disease with (acute) lower respiratory infection; E87.1 Hypo-osmolality and hyponatremia; J20.9 Acute bronchitis, unspecified; I25.10 Atherosclerotic heart disease of native coronary artery without angina pectoris; E11.22 Type 2 diabetes mellitus with diabetic chronic kidney disease; N18.3 Chronic kidney disease, stage 3 (moderate); E11.65 Type 2 diabetes mellitus with hyperglycemia; T38.0X5A Adverse effect of glucocorticoids and synthetic analogues, initial encounter; I48.2 Chronic atrial fibrillation; E66.01 Morbid (severe) obesity due to excess calories; G30.9 Alzheimer's disease, unspecified; F02.80 Dementia in other diseases classified elsewhere, unspecified severity, without behavioral disturbance, psychotic disturbance, mood disturbance, and anxiety; I25.2 Old myocardial infarction; F32.9 Major depressive disorder, single episode, unspecified; Z79.01 Long term (current) use of anticoagulants; Z79.4 Long term (current) use of insulin; Z79.82 Long term (current) use of aspirin; Z79.899 Other long term (current) drug therapy; Z88.5 Allergy status to narcotic agent; Z91.041 Radiographic dye allergy status

== ENCOUNTER 2018-10-17 11:00 | Inpatient (IN) ==
[2018-10-17] MEDS ORDERED: SODIUM CHLORIDE 0.9% 500 ML IV SCH (11:15)
[2018-10-17 11:30] LABS: Basophils # (auto) 0.02 K/uL (0-0.2); Basophils % (auto) 0.3 %; Eosinophils # (auto) 0.24 K/uL (0-0.5); Eosinophils % (auto) 3.1 %; Hematocrit (blood only) 41.9 % (42-52); Hemoglobin 13.9 g/dL (14.0-18.0); Immature Granulocytes # (auto) 0.01 K/uL (0.00-0.02); Immature Granulocytes % (auto) 0.1 %; Lymphocytes # (auto) 1.18 K/uL (1.2-3.4); Lymphocytes % (auto) 15.3 %; Mean Corpuscular Hgb Conc 33.2 g/dL (32-36); Mean Corpuscular Volume 89.5 fL (80-100); Mean Platelet Volume 10.1 fL (7.4-10.4); Monocytes # (auto) 0.61 K/uL (0.11-0.59); Monocytes % (auto) 7.9 %; Neutrophils # (auto) 5.63 K/uL (1.4-6.5); Neutrophils % (auto) 73.3 %; Platelet Count 180 K/uL (130-400); RDW Coefficient of Variation 14.4 % (11.5-14.5); Red Blood Count 4.68 M/uL (4.7-6.1); White Blood Count 7.69 K/uL (4.8-10.8)
[2018-10-17 11:36] LABS: iSTAT Hemoglobin 14.3 g/dl (14.0-18.0); iSTAT Ionized Calcium 1.14 mmol/l (1.12-1.32)
[2018-10-17 11:43] LABS: INR 1.3 (0.9-1.1); Prothrombin Time 12.6 Seconds (9.0-12.0)
[2018-10-17 11:46] LABS: Base Excess VBG 3.2 mEq/L; Oxygen Saturation VBG 80.4 %; pH VBG 7.36 (7.36-7.41)
--- NOTE | 2018-10-17 11:54 | XRay Report ---
SINGLE VIEW CHEST CLINICAL HISTORY: Atypical chest pain. FINDINGS: An AP, portable, upright chest radiograph is compared to study dated 12/20/2017 and correlat ed with chest CT dated 10/26/2016. The examination is degraded by portable technique and patient rotat ion. A right right-sided central venous infusion port is unchanged in position. The patient is status post midline sternotomy. The heart is enlarged and there is atherosclerotic calcification of the tho racic aorta. There is pulmonary vascular congestion. Chronic interstitial thickening is similar to pr evious. Trace pleural effusions are suspected and there are bibasilar airspace opacities. Scarring/at electasis is seen in the right midlung. No pneumothorax is seen. The skeletal structures are osteopen ic. The bony thorax is grossly intact. IMPRESSION: 1. Cardiomegaly with evidence of mild congestive failure. 2. Trace pleural effusions are suspected. 3. Bibasilar airspace opacities are nonspecific and likely represent atelectasis. Correlate clinicall y for evidence of a superimposed infectious/inflammatory pneumonitis. Electronically signed by: Hi Abdul M.D. 10/17/2018 11:53 AM
[2018-10-17 12:00] LABS: Appearance Urine Cloudy (Clear); Bacteria Urine Automated 1+ (Negative); Bilirubin Urine Negative (Negative); Color Urine Yellow; Epithelial Cell Urine Auto >30 /lpf (0-5); Glucose Urine UA Negative (Negative); Ketones Urine Negative (Negative); Leukocyte Esterase Urine 3+ (Negative); Nitrite Urine Negative (Negative); Protein Urine 2+ (Negative); Specific Gravity Urine 1.018 (1.000-1.030); Urobilinogen Urine Negative (Negative); WBC Urine Automated >30 /hpf (0-5); pH Urine 5.5 (4.5-7.5)
--- NOTE | 2018-10-17 12:03 | CT Scan Report ---
CT head/brain wo con CT DOSE: 729.78 mGycm HISTORY: Mental status change ams TECHNIQUE: Multiaxial CT images of the head were performed without the use of intravenous contrast. A dose lowering technique was utilized adhering to the principles of ALARA. Comparison: None. Findings: The paranasal sinuses and mastoid air cells are clear. Potential small subacute infarct lef t temporal lobe. This is best seen transaxial image 16. No evidence for acute intracranial hemorrhage . No midline shift. Impression: 1. 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 2. No evidence for acute intracranial hemorrhage. The above report was generated using voice recognition software. It may contain grammatical, syntax or spelling errors. Electronically signed by: Richard Guardado M.D. 10/17/2018 12:02 PM
[2018-10-17 12:10] LABS: Potassium 3.3 mmol/L (3.5-5.1)
[2018-10-17 12:11] LABS: Albumin Level 3.2 gm/dl (3.4-5.0); BUN Creatinine Ratio 15.6 (10-20); Calcium 8.5 mg/dl (8.5-10.1); Creatinine Clr Calc Pharmacy 58.7 ml/min; Est GFR (Non-African American) 49.1
[2018-10-17] MEDS ORDERED: PIPERACILLIN/TAZOBACTAM 4.5 GM/120 ML BAG IV ONE (12:14)
[2018-10-17] MEDS ORDERED: VANCOMYCIN HCL 2,500 MG in SODIUM CHLORIDE 0.9% 500 ML IV ONE (12:14)
[2018-10-17] MEDS ORDERED: VANCOMYCIN CONSULT ACTIVE PRN (12:14)
[2018-10-17 12:17] LABS: Influenza A virus by PCR Neg for Influ A (Neg); Influenza B virus by PCR Neg for Influ B (Neg)
[2018-10-17 12:20] LABS: Albumin Globulin Ratio 0.8 (0.9-2); Bilirubin Direct 0.2 mg/dl (0-0.2); Bilirubin,Total 0.6 mg/dl (0.2-1); Globulin 3.9 gm/dl (2.5-4.0); Phosphorus 3.5 mg/dl (2.5-4.9); Total Protein 7.1 gm/dl (6.4-8.2); Troponin I 0.03 ng/ml (0-0.045)
--- NOTE | 2018-10-17 14:11 | History & Physical Report ---
Date of Service October 17, 2018 Assessment & Plan (1) Lethargy: Likely due to hypoglycemia (in 50s on EMS arrival) vs. CVA vs. UTI. CVA seems less likely as it showed up as subacute on the CT head, meaning it likely did not occur within the last 24 hours. UTI also seems less likely as he has no fever, no leukocytosis, no complaints of abdominal pain. UA on 10/17 has leuk esterase and 1+ bacteria, but has gross contamination with >30 epithelial cells. No culture sent. - Monitor blood sugars - Reduce sedating medications - Monitor mental status - See "Stroke" for further CVA work-up - Hold antibiotics at this time; monitor for infectious signs/symptoms (2) Stroke: CT head on 10/17 showed a small subacute stroke in the left temporal lobe. Possibly due to embolic phenomenon as his INR is recurrently <2 for his afib. - MRI brain; hold MRA head/neck unless neurology feels this would provide additional information - Neurology consult - PT/OT (3) CHF (congestive heart failure): Echo in 12/2017 showed EF 50-55%, hypokinetic inferior wall, apex, and apical anterior wall. Per prior cardiology notes, baseline weight is ~285 lbs. No shortness of breath, LE edema, or other concerns for CHF exacerbation at this time. - Continue home Lasix 40mg PO daily - Monitor volume status (4) DM (diabetes mellitus): A1c of 8.8% in 09/2018, indicating sub-optimal control of blood sugars; however, had episode of blood sugar to the 50s the morning of presentation. - Lower home Tresiba to 25 units QHS - Hold standing mealtime Novolog - Sliding scale insulin - Glycemic pharmacist consult (5) Atrial fibrillation: INR was 1.3 on admission. Outpatient PCP notes indicate patient often cancels outpatient visits when he's feeling well, making compliance a concern. Chads-Vasc is 7, giving him an 11.2% risk of stroke per year. - Continue home warfarin - Monitor INR (6) CAD (coronary artery disease): S/p 2vCABG with bare metal stent in one of the graft veins. Daughter reports the stent was at least 9 years ago. - Continue ASA, statin, beta-bartolome, Imdur (7) COPD (chronic obstructive pulmonary disease): No wheezing on exam, and patient does not report increased shortness of breath or sputum. - Continue home inhalers - DuoNebs PRN (8) CKD (chronic kidney disease) stage 3, GFR 30-59 ml/min: Baseline Cr appears to be ~1.5 - 1.8 from priors. On admission, Cr was only 1.36. - Monitor Cr while inpatient - Renally-dose meds for GFR ~50. (9) DVT (deep venous thrombosis): Per outpatient notes, has a history of DVTs, though none recently. - Warfarin as above - Lovenox 40mg daily until INR therapeutic History of Present Illness Primary Care Provider: Deidra Correa MD 78yo M w/ hx of CHF, COPD, and DM who presents with lethargy and altered mental status. Per patient and daughter who is in the room, he was in his normal state of health before bed last night. This morning, he reports he called his because he was feeling weak and asked her to come over. The daughter reports that when the arrived, he asked for a peanut butter sandwich, but only ate a small portion and then tried to get out of bed, but couldn't. EMS was called, and his blood sugar was found to be in the 50s. He was given D50 with blood sugar returning to the 100s, but he was still lethargic, and is being asked for admission. At present, he reports he is fatigued, but otherwise does not give any focal complaints. Allergies Allergy/AdvReac Type Severity Reaction Status Date / Time codeine AdvReac Intermediate EMESIS Verified 10/17/18 11:42 Iodinated Contrast- Oral and AdvReac Mild NAUSEA Verified 10/17/18 11:42 IV Dye Home Medications Home Medications Medication Instructions Recorded Confirmed Type aspirin [Aspir-81] 81 mg PO DAILY 10/17/18 10/17/18 History atorvastatin 40 mg PO HS 10/17/18 10/17/18 History cholecalciferol (vitamin D3) 50,000 unit PO WK 10/17/18 10/17/18 History [Vitamin D3] finasteride 5 mg PO DAILY 10/17/18 10/17/18 History fluticasone-salmeterol [Advair HFA] 2 puff INHALATION Q12H 10/17/18 10/17/18 History furosemide 40 mg PO DAILY 10/17/18 10/17/18 History insulin aspart U-100 [Novolog 5 unit SUBCUT BID 10/17/18 10/17/18 History Flexpen U-100 Insulin] insulin aspart U-100 [Novolog 7 unit SUBCUT DAILY 10/17/18 10/17/18 History Flexpen U-100 Insulin] insulin degludec [Tresiba 35 unit SUBCUT HS 10/17/18 10/17/18 History FlexTouch U-100] ipratropium-albuterol 3 ml INHALATION Q4H PRN 10/17/18 10/17/18 History ipratropium-albuterol [Combivent 1 puff INHALATION QID 10/17/18 10/17/18 History Respimat] isosorbide mononitrate 60 mg PO DAILY 10/17/18 10/17/18 History memantine 10 mg PO BID 10/17/18 10/17/18 History metoprolol tartrate 25 mg PO BID 10/17/18 10/17/18 History nitrofurantoin macrocrystal 50 mg PO HS 10/17/18 10/17/18 History nitroglycerin 1 patch TRANSDERMAL DAILY 10/17/18 10/17/18 History nitroglycerin 1 spray SUBLINGUAL Q5M PRN 10/17/18 10/17/18 History ranitidine HCl 300 mg PO HS 10/17/18 10/17/18 History sertraline 100 mg PO DAILY 10/17/18 10/17/18 History tamsulosin 0.4 mg PO DAILY 10/17/18 10/17/18 History thiamine HCl (vitamin B1) 100 mg PO DAILY 10/17/18 10/17/18 History warfarin 7.5 mg PO 5XWK 10/17/18 10/17/18 History warfarin 10 mg PO 2XWK 10/17/18 10/17/18 History Past Med/Surg History Medical History COPD (chronic obstructive pulmonary disease) (Chronic) Asthma (Chronic) CHF (congestive heart failure) (Chronic) Anxiety (Chronic) Depression (Chronic) Mild sleep apnea (Chronic) DM (diabetes mellitus) (Chronic) Peripheral neuropathy (Chronic) CAD (coronary artery disease) (Chronic 05/09/14) CHF (congestive heart failure) (Chronic) Atrial fibrillation (Chronic) Alzheimers disease (Chronic) Surgical History Hx of CABG (Resolved) H/O hemicolectomy (Resolved) Family History Mother Hypertension Social History Current Living Situation: Spouse Other Information That Helps Us Care for You: No Feels Safe at Home: Yes Safety Concerns: Feels Safe At This Time Smoking Status: Current some day smoker Tobacco Type: smokeless tobacco Do You Dip or Chew Tobacco: Yes Hx Alcohol Use: Yes Alcohol type: hard liquor Alcohol Intake Frequency: holidays/special occasions only Hx Substance Use: Yes Substance Use Type Other:: medical marijuana Beliefs That Will Affect Care: Mandaeism Mandaeism Beliefs: samaritan Preferred Language: Iraqi Communication Ability: Effective 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 Review of Systems Constitutional: + fatigue and + weakness; no fever, no chills and no sweats Eyes: no diplopia Ear, Nose, Mouth, Throat: no ear trauma, no nasal discharge and no dental pain Respiratory: no cough, no chest congestion and no dyspnea Cardiovascular: no chest pain, no dyspnea on exertion, no palpitations and no syncope Gastrointestinal: no abdominal pain, no belching, no constipation, no diarrhea/ loose stools, no blood in stools and no melena Musculoskeletal: no back pain, no joint pain and no muscle weakness Integumentary: no rash, no skin ulcer and no erythema Neurologic: no generalized weakness, no loss of sensation, no numbness and no paresthesia Psychiatric: no depression and no anxiety Endocrine: no fatigue, no polydipsia and no polyphagia Physical Exam 2 Vital Signs (Past 24 Hours): Last Vital Signs Pulse 50 L 10/17/18 13:31 Resp 18 10/17/18 13:31 BP 152/78 H 10/17/18 13:31 Pulse Ox 99 10/17/18 13:31 Constitutional: WD/WN, vitals as above cooperative, comfortable, + lethargic and + overweight Eyes: EOM intact bilaterally; no conjunctival abnormality ENMT: external ear and nose normal, oropharynx normal Neck: trachea midline, no thyromegaly normal visual inspection Respiratory: normal respiratory effort, lungs clear to auscultation no respiratory distress Cardiovascular: RRR, no murmur, no edema Gastrointestinal (Abdomen): Inspection/Auscultation: abdomen normal to inspection; abdomen not distended Musculoskeletal: no cyanosis or clubbing, extremities motor strength 5/5 Skin: no rashes, warm and dry Neurologic: moves all extremities and awake Psychiatric: Orientation: alert, oriented to person and cooperative _ (1) Stroke CVA mechanism: Laterality of affected vessel: Precerebral and cerebral artery:
[2018-10-17] MEDS ORDERED: GLUCAGON FOR INJ 1 MG VIAL SQ PRN (15:14)
[2018-10-17] MEDS ORDERED: CARBOHYDRATES FOR HYPOGLYCEMIA PO PRN (15:14)
[2018-10-17] MEDS ORDERED: ACETAMINOPHEN 325 MG TAB PO PRN (15:14)
[2018-10-17] MEDS ORDERED: DEXTROSE 50% 50 ML SYRINGE IV PRN (15:14)
[2018-10-17] MEDS ORDERED: GLUCOSE 10 TABS/TUBE PO PRN (15:14)
[2018-10-17] MEDS ORDERED: GLUCOSE 40% GEL 15 GM TUBE PO PRN (15:14)
[2018-10-17] MEDS ORDERED: PHARMACY GLYCEMIC MGMT CONSULT PRN (15:25)
--- NOTE | 2018-10-17 15:31 | Emergency Department Note ---
Entered by Dean Whiteside acting as a scribe for History of Present Illness General Chief complaint: Lethargic Time Seen by Provider: 10/17/18 11:05 Source: patient Limitations: other (reduced responsiveness) History of Present Illness Provider complaint: reduced responsiveness Onset (ago): hour(s) (this morning) Location: head (reduced responsiveness) Pain Consistency: + constant Quality: + other (reduced responsiveness) Associated symptoms: no fever/chills This history is limited secondary to the reduced responsiveness of the patient. The patient is a 78 year old male who presents to the Emergency Room via EMS. Per the patient's daughter at bedside, her sister found the patient unresponsive this morning when she went to check on him and his . She called for EMS who found the patient to be 88% on room air. He was unresponsive to verbal commands and painful stimuli. EMS found blood sugar to be 56, they administered D10 which brought it up to 147. This did improve his responsiveness slightly. The daughter adds that she did give him his Novolog dosage this morning, but may have accidentally gave him 7 instead of 5, which is his night time dosage. The patient finished antibiotics for a bladder infection 2 days ago, and the daughter adds that he self-caths for urine at home secondary to an enlarged prostate. The patient was complaining of feeling generally unwell to his daughter yesterday, but he did not make any spedific complaints. He has a history of COPD and uses nebulizers at home, but does not have supplemental oxygen. Home Medications Home Medications Medication Instructions Recorded Confirmed Type aspirin [Aspir-81] 81 mg PO DAILY 10/17/18 10/17/18 History atorvastatin 40 mg PO HS 10/17/18 10/17/18 History cholecalciferol (vitamin D3) 50,000 unit PO WK 10/17/18 10/17/18 History [Vitamin D3] finasteride 5 mg PO DAILY 10/17/18 10/17/18 History fluticasone-salmeterol [Advair HFA] 2 puff INHALATION Q12H 10/17/18 10/17/18 History furosemide 40 mg PO DAILY 10/17/18 10/17/18 History insulin aspart U-100 [Novolog 5 unit SUBCUT BID 10/17/18 10/17/18 History Flexpen U-100 Insulin] insulin aspart U-100 [Novolog 7 unit SUBCUT DAILY 10/17/18 10/17/18 History Flexpen U-100 Insulin] insulin degludec [Tresiba 35 unit SUBCUT HS 10/17/18 10/17/18 History FlexTouch U-100] ipratropium-albuterol 3 ml INHALATION Q4H PRN 10/17/18 10/17/18 History ipratropium-albuterol [Combivent 1 puff INHALATION QID 10/17/18 10/17/18 History Respimat] isosorbide mononitrate 60 mg PO DAILY 10/17/18 10/17/18 History memantine 10 mg PO BID 10/17/18 10/17/18 History metoprolol tartrate 25 mg PO BID 10/17/18 10/17/18 History nitrofurantoin macrocrystal 50 mg PO HS 10/17/18 10/17/18 History nitroglycerin 1 patch TRANSDERMAL DAILY 10/17/18 10/17/18 History nitroglycerin 1 spray SUBLINGUAL Q5M PRN 10/17/18 10/17/18 History ranitidine HCl 300 mg PO HS 10/17/18 10/17/18 History sertraline 100 mg PO DAILY 10/17/18 10/17/18 History tamsulosin 0.4 mg PO DAILY 10/17/18 10/17/18 History thiamine HCl (vitamin B1) 100 mg PO DAILY 10/17/18 10/17/18 History warfarin 7.5 mg PO 5XWK 10/17/18 10/17/18 History warfarin 10 mg PO 2XWK 10/17/18 10/17/18 History Allergies Allergy/AdvReac Type Severity Reaction Status Date / Time codeine AdvReac Intermediate EMESIS Verified 10/17/18 11:42 Iodinated Contrast- Oral and AdvReac Mild NAUSEA Verified 10/17/18 11:42 IV Dye Past Med/Surg History Medical History COPD (chronic obstructive pulmonary disease) (Chronic) Asthma (Chronic) CHF (congestive heart failure) (Chronic) Anxiety (Chronic) Depression (Chronic) Mild sleep apnea (Chronic) DM (diabetes mellitus) (Chronic) Peripheral neuropathy (Chronic) CAD (coronary artery disease) (Chronic 08/28/14) CHF (congestive heart failure) (Chronic) Atrial fibrillation (Chronic) Alzheimers disease (Chronic) Surgical History Hx of CABG (Resolved) H/O hemicolectomy (Resolved) Family History Mother Hypertension Social History Current Living Situation: Spouse Other Information That Helps Us Care for You: No Feels Safe at Home: Yes Safety Concerns: Feels Safe At This Time Smoking Status: Current some day smoker Tobacco Type: smokeless tobacco Do You Dip or Chew Tobacco: Yes Hx Alcohol Use: Yes Alcohol type: hard liquor Alcohol Intake Frequency: holidays/special occasions only Hx Substance Use: Yes Substance Use Type Other:: medical marijuana Beliefs That Will Affect Care: Cheondoism Cheondoism Beliefs: zoroastrian Preferred Language: Persian Communication Ability: Effective Food Writer Required: No Review of Systems See HPI for pertinent positives & negatives. ROS limited secondary to reduced responsiveness in the patient Physical Exam Vital Signs Vital Signs - 24 hr 10/17/18 11:06 10/17/18 11:27 10/17/18 11:30 Temperature Temperature Source Sepsis Recent Fever Within 48 Hours No Sepsis New/Unexplained Change in Mental Status No Sepsis Action Taken by Nursing No Action Required Pulse Rate 60 Pulse Rate [Apical] 60 Respiratory Rate 16 Respiratory Effort / Characteristics Respiratory Depth Respiratory Pattern Blood Pressure 132/64 Blood Pressure [Right Arm] Blood Pressure Mean 86 Blood Pressure Mean [Right Arm] Blood Pressure Position [Right Arm] Pulse Oximetry 88 L 88 L Oxygen Delivery Method Room Air Room Air Nasal Cannula Oxygen Flow Rate 0 10/17/18 11:40 10/17/18 11:59 10/17/18 12:00 Temperature Temperature Source Sepsis Recent Fever Within 48 Hours Sepsis New/Unexplained Change in Mental Status Sepsis Action Taken by Nursing Pulse Rate 62 60 55 L Pulse Rate [Apical] Respiratory Rate 17 23 21 Respiratory Effort / Characteristics Respiratory Depth Respiratory Pattern Blood Pressure Blood Pressure [Right Arm] Blood Pressure Mean Blood Pressure Mean [Right Arm] Blood Pressure Position [Right Arm] Pulse Oximetry 96 95 95 Oxygen Delivery Method Oxygen Flow Rate 10/17/18 12:01 10/17/18 12:13 10/17/18 12:14 Temperature Temperature Source Sepsis Recent Fever Within 48 Hours Sepsis New/Unexplained Change in Mental Status Sepsis Action Taken by Nursing Pulse Rate 53 L 58 L Pulse Rate [Apical] Respiratory Rate 17 19 Respiratory Effort / Characteristics Respiratory Depth Respiratory Pattern Blood Pressure 135/96 136/80 Blood Pressure [Right Arm] Blood Pressure Mean 109 98 Blood Pressure Mean [Right Arm] Blood Pressure Position [Right Arm] Pulse Oximetry 95 94 93 Oxygen Delivery Method Oxygen Flow Rate 10/17/18 12:30 10/17/18 12:47 10/17/18 13:31 Temperature Temperature Source Sepsis Recent Fever Within 48 Hours Sepsis New/Unexplained Change in Mental Status Sepsis Action Taken by Nursing Pulse Rate 60 50 L Pulse Rate [Apical] 64 Respiratory Rate 20 18 18 Respiratory Effort / Characteristics Spontaneous Respiratory Depth Respiratory Pattern Blood Pressure 138/76 152/78 H Blood Pressure [Right Arm] 117/64 Blood Pressure Mean 96 102 Blood Pressure Mean [Right Arm] 81 Blood Pressure Position [Right Arm] Lying Pulse Oximetry 96 95 99 Oxygen Delivery Method Nasal Cannula Nasal Cannula Nasal Cannula Oxygen Flow Rate 2 2 2 10/17/18 14:00 10/17/18 15:38 10/17/18 16:30 Temperature 36.6 C Temperature Source Oral Sepsis Recent Fever Within 48 Hours Sepsis New/Unexplained Change in Mental Status Sepsis Action Taken by Nursing Pulse Rate Pulse Rate [Apical] 83 Respiratory Rate 20 Respiratory Effort / Characteristics Non-Labored Spontaneous Non-Labored Spontaneous Respiratory Depth Normal Normal Respiratory Pattern Regular Regular Blood Pressure Blood Pressure [Right Arm] 164/97 H Blood Pressure Mean Blood Pressure Mean [Right Arm] 119 Blood Pressure Position [Right Arm] Lying Pulse Oximetry 93 Oxygen Delivery Method Nasal Cannula Nasal Cannula Room Air Oxygen Flow Rate 2 2 GENERAL: Awakens to loud voice, drowsy. Ill appearing. HENT: Normocephalic, atraumatic. Oropharynx with dry mucous membranes and otherwise unremarkable. EYES: Normal conjunctiva. Sclera non-icteric. EOMI. No nystamgus. PEARRL. NECK: Supple. No nuchal rigidity. FROM. No JVD. RESPIRATORY: Diminished breath sounds at the bases. Scant intermittent wheeze. CARDIAC: Regular rate, normal rhythm. 3/6 systolic ejection murmur. Extremities warm and well perfused. Pulses equal. ABDOMEN: Soft, non-distended. No tenderness to palpation. No rebound or guarding. No masses. RECTAL: Deferred. MUSCULOSKELETAL: Chest examination reveals no tenderness. The back is symmetrical on inspection without obvious abnormality. There is no CVA tenderness to palpation. LOWER EXTREMITIES: Calves are equal size bilaterally and non-tender. Scant bilateral LE edema. No discoloration. NEURO: No sensory or motor deficits noted. Moving all 4 extremities equally. SKIN: No rash or jaundice noted. Course 1106: Past medical records reviewed. The patient was evaluated in room B1, and a complete history and physical examination were performed. 1219: I reviewed the patient's case with Dr. Quentin WINKLER Hospitalist. He will evaluate the patient for further management. Consultations Consultation #1: 1219: I reviewed the patient's case with Dr. Quentin WINKLER Hospitalist. He will evaluate the patient for further management. Administered Medications Atorvastatin Calcium (Lipitor) 40 mg PO HS [facility] Stop: 11/16/18 20:59 Last Admin: 10/17/18 21:16 Dose: 40 mg Insulin Aspart (Novolog Flexpen) 0 units SC [facility]; Protocol Stop: 11/16/18 16:29 Last Admin: 10/17/18 21:23 Dose: Not Given Admin: 10/17/18 17:45 Dose: 4 units Insulin Glargine (Lantus Solostar Pen) 0 units SC [facility]; Protocol Stop: 11/16/18 20:59 Last Admin: 10/17/18 21:22 Dose: 10 units Memantine (Namenda) 10 mg PO BID [facility] Stop: 11/16/18 20:59 Last Admin: 10/17/18 21:16 Dose: 10 mg Metoprolol Tartrate (Lopressor) 25 mg PO BID [facility] Stop: 11/16/18 20:59 Last Admin: 10/17/18 21:17 Dose: 25 mg Ranitidine HCl (Zantac) 300 mg PO HS [facility] Stop: 11/16/18 20:59 Last Admin: 10/17/18 21:17 Dose: 300 mg Warfarin Sodium (Coumadin) 10 mg PO TuFr@1600 [facility] Stop: 11/16/18 16:59 Last Admin: 10/17/18 17:55 Dose: 10 mg Discontinued Medications Sodium Chloride (Nss) 500 mls @ 999 mls/hr IV .Q31M [facility] Stop: 10/17/18 11:45 Last Infusion: 10/17/18 12:04 Dose: 0 mls/hr Admin: 10/17/18 11:30 Dose: 999 mls/hr Piperacillin Sod/Tazobactam Sod (Zosyn) 4.5 gm in 120 mls @ 30 mls/hr IV NOW ONE Stop: 10/17/18 16:13 Last Infusion: 10/17/18 13:36 Dose: 0 mls/hr Infusion: 10/17/18 12:54 Dose: 200 mls/hr Admin: 10/17/18 12:20 Dose: 30 mls/hr Vancomycin HCl 2,500 mg/ (Sodium Chloride) 550 mls @ 200 mls/hr IV NOW ONE Stop: 10/17/18 14:58 Last Infusion: 10/17/18 15:38 Dose: 0 mls/hr Admin: 10/17/18 12:41 Dose: 200 mls/hr Ceftriaxone Sodium 1,000 mg/ (Dextrose) 50 mls @ 100 mls/hr IV Q24H [facility]; Protocol Stop: 10/27/18 17:59 Last Infusion: 10/17/18 18:36 Dose: 0 mls/hr Admin: 10/17/18 17:59 Dose: 100 mls/hr Medical Decision Making Differential Diagnosis Differential Diagnosis includes: Differential includes acute coronary syndrome, myocardial infarction, CVA, TIA, anemia, infection, pneumonia, UTI, pyelonephritis, poor nutrition, dehydration, electrolyte disturbance,hypoglycemia. Medical Records Attestation: I reviewed the patient's medical records. Home Medications Current Medication List: was personally reviewed by me Laboratory Data Attestation: I reviewed the patient's lab results. Result diagrams: 10/17/18 11:15 10/17/18 11:15 Lab Results 10/17/18 10/17/18 10/17/18 Range/Units 11:15 11:15 11:15 WBC 7.69 (4.8-10.8) K/uL RBC 4.68 L (4.7-6.1) M/uL Hgb 13.9 L (14.0-18.0) g/dL POC Hgb (14.0-18.0) g/dl Hct 41.9 L (42-52) % POC Hct (42-52) % MCV 89.5 (80-100) fL MCH 29.7 (25-34) pg MCHC 33.2 (32-36) g/dL RDW Std Deviation 47.0 H (36.4-46.3) fL RDW Coeff of Marie 14.4 (11.5-14.5) % Plt Count 180 (130-400) K/uL MPV 10.1 (7.4-10.4) fL Immature Gran % (Auto) 0.1 % Neut % (Auto) 73.3 % Lymph % (Auto) 15.3 % [place] % (Auto) 7.9 % Eos % (Auto) 3.1 % Baso % (Auto) 0.3 % Immature Gran # (Auto) 0.01 (0.00-0.02) K/uL Neut # (Auto) 5.63 (1.4-6.5) K/uL Lymph # (Auto) 1.18 L (1.2-3.4) K/uL [place] # (Auto) 0.61 H (0.11-0.59) K/uL Eos # (Auto) 0.24 (0-0.5) K/uL Baso # (Auto) 0.02 (0-0.2) K/uL PT 12.6 H (9.0-12.0) Seconds INR 1.3 H (0.9-1.1) VBG pH (7.36-7.41) VBG pCO2 (38-50) mmHg VBG pO2 mmHg VBG HCO3 mmol/L VBG O2 Saturation % VBG Base Excess mEq/L Barometric Pressure mm/Hg POC Sodium (135-144) mEq/L Sodium 141 (136-145) mmol/L POC Potassium (3.3-5.0) mEq/L Potassium 3.3 L (3.5-5.1) mmol/L POC Chloride (101-112) mEq/L Chloride 105 (98-107) mmol/L Carbon Dioxide 30 (21-32) mmol/L POC Total CO2 (24-31) mEq/l Anion Gap 6.0 (3-11) POC Anion Gap (16-25) mmol/L POC BUN (7-18) mg/dl BUN 21 H (7-18) mg/dl Creatinine 1.36 (0.6-1.4) mg/dl POC Creatinine (0.6-1.3) mg/dl Est Cr Clr Drug Dosing 58.7 ml/min Est GFR ( Amer) 57.0 Est GFR (Non-Af Amer) 49.1 BUN/Creatinine Ratio 15.6 (10-20) Glucose 111 H (70-99) mg/dl POC Glucose (70-99) POC Glucose (other) (70-99) mg/dl Lactate (0.4-2.0) mmol/L Calcium 8.5 (8.5-10.1) mg/dl POC Ioniz Calcium Aurora (1.12-1.32) mmol/l Phosphorus 3.5 (2.5-4.9) mg/dl Magnesium 2.0 (1.8-2.4) mg/dl Total Bilirubin 0.6 (0.2-1) mg/dl Direct Bilirubin 0.2 (0-0.2) mg/dl AST 16 (15-37) U/L ALT 17 (12-78) U/L Alkaline Phosphatase 94 (45-117) U/L Troponin I 0.030 (0-0.045) ng/ml NT-Pro-B Natriuret Pep 3224 H (0-1800) pg/ml Total Protein 7.1 (6.4-8.2) gm/dl Albumin 3.2 L (3.4-5.0) gm/dl Globulin 3.9 (2.5-4.0) gm/dl Albumin/Globulin Ratio 0.8 L (0.9-2) Lipase 58 L (73-393) U/L TSH 1.950 (0.300-4.500) uIu/ml Urine Color Urine Appearance (Clear) Urine pH (4.5-7.5) Ur Specific Moran (1.000-1.030) Urine Protein (Negative) Urine Glucose (UA) (Negative) Urine Ketones (Negative) Urine Blood (Negative) Urine Nitrite (Negative) Urine Bilirubin (Negative) Urine Urobilinogen (Negative) Ur Leukocyte Esterase (Negative) Urine WBC (Auto) (0-5) /hpf Urine RBC (Auto) (0-4) /hpf U Hyaline Cast (Auto) (0-5) /lpf U Epithel Cells (Auto) (0-5) /lpf Urine Bacteria (Auto) (Negative) Granular Casts (0) /lpf Influenza Type A (PCR) (Neg) Influenza Type B (PCR) (Neg) 10/17/18 10/17/18 10/17/18 Range/Units 11:22 11:26 11:30 WBC (4.8-10.8) K/uL RBC (4.7-6.1) M/uL Hgb (14.0-18.0) g/dL POC Hgb 14.3 (14.0-18.0) g/dl Hct (42-52) % POC Hct 42 (42-52) % MCV (80-100) fL MCH (25-34) pg MCHC (32-36) g/dL RDW Std Deviation (36.4-46.3) fL RDW Coeff of Marie (11.5-14.5) % Plt Count (130-400) K/uL MPV (7.4-10.4) fL Immature Gran % (Auto) % Neut % (Auto) % Lymph % (Auto) % [place] % (Auto) % Eos % (Auto) % Baso % (Auto) % Immature Gran # (Auto) (0.00-0.02) K/uL Neut # (Auto) (1.4-6.5) K/uL Lymph # (Auto) (1.2-3.4) K/uL [place] # (Auto) (0.11-0.59) K/uL Eos # (Auto) (0-0.5) K/uL Baso # (Auto) (0-0.2) K/uL PT (9.0-12.0) Seconds INR (0.9-1.1) VBG pH (7.36-7.41) VBG pCO2 (38-50) mmHg VBG pO2 mmHg VBG HCO3 mmol/L VBG O2 Saturation % VBG Base Excess mEq/L Barometric Pressure mm/Hg POC Sodium 142 (135-144) mEq/L Sodium (136-145) mmol/L POC Potassium 3.3 (3.3-5.0) mEq/L Potassium (3.5-5.1) mmol/L POC Chloride 100 L (101-112) mEq/L Chloride (98-107) mmol/L Carbon Dioxide (21-32) mmol/L POC Total CO2 28 (24-31) mEq/l Anion Gap (3-11) POC Anion Gap 18.0 (16-25) mmol/L POC BUN 21 H (7-18) mg/dl BUN (7-18) mg/dl Creatinine (0.6-1.4) mg/dl POC Creatinine 1.4 H (0.6-1.3) mg/dl Est Cr Clr Drug Dosing ml/min Est GFR ( Amer) Est GFR (Non-Af Amer) BUN/Creatinine Ratio (10-20) Glucose (70-99) mg/dl POC Glucose (70-99) POC Glucose (other) 114 H (70-99) mg/dl Lactate (0.4-2.0) mmol/L Calcium (8.5-10.1) mg/dl POC Ioniz Calcium Aurora 1.14 (1.12-1.32) mmol/l Phosphorus (2.5-4.9) mg/dl Magnesium (1.8-2.4) mg/dl Total Bilirubin (0.2-1) mg/dl Direct Bilirubin (0-0.2) mg/dl AST (15-37) U/L ALT (12-78) U/L Alkaline Phosphatase (45-117) U/L Troponin I (0-0.045) ng/ml NT-Pro-B Natriuret Pep (0-1800) pg/ml Total Protein (6.4-8.2) gm/dl Albumin (3.4-5.0) gm/dl Globulin (2.5-4.0) gm/dl Albumin/Globulin Ratio (0.9-2) Lipase (73-393) U/L TSH (0.300-4.500) uIu/ml Urine Color Yellow Urine Appearance Cloudy H (Clear) Urine pH 5.5 (4.5-7.5) Ur Specific Moran 1.018 (1.000-1.030) Urine Protein 2+ H (Negative) Urine Glucose (UA) Negative (Negative) Urine Ketones Negative (Negative) Urine Blood 1+ H (Negative) Urine Nitrite Negative (Negative) Urine Bilirubin Negative (Negative) Urine Urobilinogen Negative (Negative) Ur Leukocyte Esterase 3+ H (Negative) Urine WBC (Auto) >30 H (0-5) /hpf Urine RBC (Auto) 0-4 (0-4) /hpf U Hyaline Cast (Auto) 10-30 H (0-5) /lpf U Epithel Cells (Auto) >30 H (0-5) /lpf Urine Bacteria (Auto) 1+ H (Negative) Granular Casts 1-5 H (0) /lpf Influenza Type A (PCR) Neg for Influ A (Neg) Influenza Type B (PCR) Neg for Influ B (Neg) 10/17/18 10/17/18 10/17/18 Range/Units 11:33 11:33 16:44 WBC (4.8-10.8) K/uL RBC (4.7-6.1) M/uL Hgb (14.0-18.0) g/dL POC Hgb (14.0-18.0) g/dl Hct (42-52) % POC Hct (42-52) % MCV (80-100) fL MCH (25-34) pg MCHC (32-36) g/dL RDW Std Deviation (36.4-46.3) fL RDW Coeff of Marie (11.5-14.5) % Plt Count (130-400) K/uL MPV (7.4-10.4) fL Immature Gran % (Auto) % Neut % (Auto) % Lymph % (Auto) % [place] % (Auto) % Eos % (Auto) % Baso % (Auto) % Immature Gran # (Auto) (0.00-0.02) K/uL Neut # (Auto) (1.4-6.5) K/uL Lymph # (Auto) (1.2-3.4) K/uL [place] # (Auto) (0.11-0.59) K/uL Eos # (Auto) (0-0.5) K/uL Baso # (Auto) (0-0.2) K/uL PT (9.0-12.0) Seconds INR (0.9-1.1) VBG pH 7.36 (7.36-7.41) VBG pCO2 54 H (38-50) mmHg VBG pO2 47 mmHg VBG HCO3 30 mmol/L VBG O2 Saturation 80.4 % VBG Base Excess 3.2 mEq/L Barometric Pressure 731.4 mm/Hg POC Sodium (135-144) mEq/L Sodium (136-145) mmol/L POC Potassium (3.3-5.0) mEq/L Potassium (3.5-5.1) mmol/L POC Chloride (101-112) mEq/L Chloride (98-107) mmol/L Carbon Dioxide (21-32) mmol/L POC Total CO2 (24-31) mEq/l Anion Gap (3-11) POC Anion Gap (16-25) mmol/L POC BUN (7-18) mg/dl BUN (7-18) mg/dl Creatinine (0.6-1.4) mg/dl POC Creatinine (0.6-1.3) mg/dl Est Cr Clr Drug Dosing ml/min Est GFR ( Amer) Est GFR (Non-Af Amer) BUN/Creatinine Ratio (10-20) Glucose (70-99) mg/dl POC Glucose 86 (70-99) POC Glucose (other) (70-99) mg/dl Lactate 0.9 (0.4-2.0) mmol/L Calcium (8.5-10.1) mg/dl POC Ioniz Calcium [place] (1.12-1.32) mmol/l Phosphorus (2.5-4.9) mg/dl Magnesium (1.8-2.4) mg/dl Total Bilirubin (0.2-1) mg/dl Direct Bilirubin (0-0.2) mg/dl AST (15-37) U/L ALT (12-78) U/L Alkaline Phosphatase (45-117) U/L Troponin I (0-0.045) ng/ml NT-Pro-B Natriuret Pep (0-1800) pg/ml Total Protein (6.4-8.2) gm/dl Albumin (3.4-5.0) gm/dl Globulin (2.5-4.0) gm/dl Albumin/Globulin Ratio (0.9-2) Lipase (73-393) U/L TSH (0.300-4.500) uIu/ml Urine Color Urine Appearance (Clear) Urine pH (4.5-7.5) Ur Specific Moran (1.000-1.030) Urine Protein (Negative) Urine Glucose (UA) (Negative) Urine Ketones (Negative) Urine Blood (Negative) Urine Nitrite (Negative) Urine Bilirubin (Negative) Urine Urobilinogen (Negative) Ur Leukocyte Esterase (Negative) Urine WBC (Auto) (0-5) /hpf Urine RBC (Auto) (0-4) /hpf U Hyaline Cast (Auto) (0-5) /lpf U Epithel Cells (Auto) (0-5) /lpf Urine Bacteria (Auto) (Negative) Granular Casts (0) /lpf Influenza Type A (PCR) (Neg) Influenza Type B (PCR) (Neg) 10/17/18 Range/Units 21:22 WBC (4.8-10.8) K/uL RBC (4.7-6.1) M/uL Hgb (14.0-18.0) g/dL POC Hgb (14.0-18.0) g/dl Hct (42-52) % POC Hct (42-52) % MCV (80-100) fL MCH (25-34) pg MCHC (32-36) g/dL RDW Std Deviation (36.4-46.3) fL RDW Coeff of Marie (11.5-14.5) % Plt Count (130-400) K/uL MPV (7.4-10.4) fL Immature Gran % (Auto) % Neut % (Auto) % Lymph % (Auto) % [place] % (Auto) % Eos % (Auto) % Baso % (Auto) % Immature Gran # (Auto) (0.00-0.02) K/uL Neut # (Auto) (1.4-6.5) K/uL Lymph # (Auto) (1.2-3.4) K/uL [place] # (Auto) (0.11-0.59) K/uL Eos # (Auto) (0-0.5) K/uL Baso # (Auto) (0-0.2) K/uL PT (9.0-12.0) Seconds INR (0.9-1.1) VBG pH (7.36-7.41) VBG pCO2 (38-50) mmHg VBG pO2 mmHg VBG HCO3 mmol/L VBG O2 Saturation % VBG Base Excess mEq/L Barometric Pressure mm/Hg POC Sodium (135-144) mEq/L Sodium (136-145) mmol/L POC Potassium (3.3-5.0) mEq/L Potassium (3.5-5.1) mmol/L POC Chloride (101-112) mEq/L Chloride (98-107) mmol/L Carbon Dioxide (21-32) mmol/L POC Total CO2 (24-31) mEq/l Anion Gap (3-11) POC Anion Gap (16-25) mmol/L POC BUN (7-18) mg/dl BUN (7-18) mg/dl Creatinine (0.6-1.4) mg/dl POC Creatinine (0.6-1.3) mg/dl Est Cr Clr Drug Dosing ml/min Est GFR ( Amer) Est GFR (Non-Af Amer) BUN/Creatinine Ratio (10-20) Glucose (70-99) mg/dl POC Glucose 95 (70-99) POC Glucose (other) (70-99) mg/dl Lactate (0.4-2.0) mmol/L Calcium (8.5-10.1) mg/dl POC Ioniz Calcium [place] (1.12-1.32) mmol/l Phosphorus (2.5-4.9) mg/dl Magnesium (1.8-2.4) mg/dl Total Bilirubin (0.2-1) mg/dl Direct Bilirubin (0-0.2) mg/dl AST (15-37) U/L ALT (12-78) U/L Alkaline Phosphatase (45-117) U/L Troponin I (0-0.045) ng/ml NT-Pro-B Natriuret Pep (0-1800) pg/ml Total Protein (6.4-8.2) gm/dl Albumin (3.4-5.0) gm/dl Globulin (2.5-4.0) gm/dl Albumin/Globulin Ratio (0.9-2) Lipase (73-393) U/L TSH (0.300-4.500) uIu/ml Urine Color Urine Appearance (Clear) Urine pH (4.5-7.5) Ur Specific [place] (1.000-1.030) Urine Protein (Negative) Urine Glucose (UA) (Negative) Urine Ketones (Negative) Urine Blood (Negative) Urine Nitrite (Negative) Urine Bilirubin (Negative) Urine Urobilinogen (Negative) Ur Leukocyte Esterase (Negative) Urine WBC (Auto) (0-5) /hpf Urine RBC (Auto) (0-4) /hpf U Hyaline Cast (Auto) (0-5) /lpf U Epithel Cells (Auto) (0-5) /lpf Urine Bacteria (Auto) (Negative) Granular Casts (0) /lpf Influenza Type A (PCR) (Neg) Influenza Type B (PCR) (Neg) Imaging Data Attestation: I personally reviewed and interpreted this imaging study as follows : Radiologist's Impression: CT head/brain wo con CT DOSE: 729.78 mGycm HISTORY: Mental status change ams TECHNIQUE: Multiaxial CT images of the head were performed without the use of intravenous contrast. A dose lowering technique was utilized adhering to the principles of ALARA. Comparison: None. Findings: The paranasal sinuses and mastoid air cells are clear. Potential small subacute infarct left temporal lobe. This is best seen transaxial image 16. No evidence for acute intracranial hemorrhage. No midline shift. Impression: 1. 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 2. No evidence for acute intracranial hemorrhage. The above report was generated using voice recognition software. It may contain grammatical, syntax or spelling errors. Electronically signed by: Richard Guardado M.D. 10/17/2018 12:02 PM SINGLE VIEW CHEST CLINICAL HISTORY: Atypical chest pain. FINDINGS: An AP, portable, upright chest radiograph is compared to study dated and correlated with chest CT dated 10/26/2016. The examination is degraded by portable technique and patient rotation. A right right-sided central venous infusion port is unchanged in position. The patient is status post midline sternotomy. The heart is enlarged and there is atherosclerotic calcification of the thoracic aorta. There is pulmonary vascular congestion. Chronic interstitial thickening is similar to previous. Trace pleural effusions are suspected and there are bibasilar airspace opacities. Scarring/atelectasis is seen in the right midlung. No pneumothorax is seen. The skeletal structures are osteopenic. The bony thorax is grossly intact. IMPRESSION: 1. Cardiomegaly with evidence of mild congestive failure. 2. Trace pleural effusions are suspected. 3. Bibasilar airspace opacities are nonspecific and likely represent atelectasis. Correlate clinically for evidence of a superimposed infectious/ inflammatory pneumonitis. Electronically signed by: Hi Abdul M.D. 10/17/2018 11:53 AM ECG Data Attestation: I personally reviewed and interpreted this ECG as follows: Indication: altered mental status and weakness Rate (beats per minute): 72 Rhythm: atrial fibrillation Findings: + other (normal axis); no acute ischemic change Blood Pressure Blood Pressure Findings: Elevated blood pressure Blood Pressure Disposition: further management by hospitalist JERMAINE Narrative The patient is a 78-year-old gentleman with a past medical history of COPD, A. fib on coumadin, CAD status post CABG 2010, chronic diastolic heart failure, IDDM2, URIAH who presents emergency department with unresponsiveness that occurred today found by EMS to be hypoglycemic in the 50s given dextrose in the field with progressive improvement though still drowsy per hpi. Per family episode occurs in the setting of recently completing antibiotic treatment for a urinary tract infection in the setting of self-catheterization for a history of BPH and feeling generally weak over the past couple of days per hpi. Brought by EMS to critical bay. On arrival patient is ill-appearing, alert to loud voice but drowsy, with initial rectal temperature 35.9, vital signs otherwise stable. On exam the patient is moving all extremities equally. He has mild bilateral lower extremity edema. EKG demonstrates A. fib at 72 without evidence of acute ischemia. Chest x-ray with mild venous congestion and otherwise nonspecific bibasilar opacities. WBC within normal limits. H/H 13.9/41.9 within patient's baseline. Platelets within normal limits. INR is subtherapeutic at 1.3. VBG unremarkable. Chemistry with creatinine of 1.3 and no acidosis. Lactate within normal limits. Troponin within normal limits. BNP 3K without prior values for comparison. UA with LE 3+, WBC> 30, 1+ bacteria suggestive of UTI. Flu negative. CT head with evidence of small subacute infarct of the left superior temporal lobe. Of note, the patient does have indwelling prosthesis for his erectile dysfunction. Thus, given the patient's mental status changes in the setting of his mild hypothermia on arrival, will treat with broad- spectrum antibiotics for now for the possibility of early sepsis. Vancomycin and Zosyn ordered. Case was discussed with Dr. Handley, [facility] hospitalist, who will evaluate the patient for admission. Impression & Plan Stroke, Acute UTI Critical Care Time I have personally spent greater than 35 minutes of critical care time in the direct management of this patient. This includes bedside care, interpretation of diagnostic studies, and testing, discussion with consultants, patient, and family members, and other required patient management activities. This 35 minutes is in excess of all separately billable procedures. Critical Care Time: Yes Total Critical Care Time: 35 Discharge Plan Visit Data *Final* Discharge Date/Time: 10/17/18 13:54 Chief Complaint: Lethargic ED Provider: Noe eKnt Discharge Problem: Stroke, Acute UTI Patient Disposition: Admitted As Inpatient Discharge Instructions Interventions: ED Discharge Assessment Last Done: 10/17/18 13:54 The scribe's documentation has been prepared under my direction and personally reviewed by me in its entirety. I confirm that the note above accurately reflects all work, treatment, procedures, and medical decision making performed by me.
--- NOTE | 2018-10-17 15:53 | Pharmacy Report ---
Glycemic Control Consultation - Date of Service October 17, 2018 - Scope Scope: Glycemic Pharmacist consulted by Dr Quentin Handley on [10-17-18] for glycemic control and to write orders per [facility] inpatient glycemic control protocol - Objective Weight: 126 kg Accuchecks BSG (last 24hrs): 10/17/18 10/17/18 11:15 11:22 Glucose 111 H POC Glucose (other) 114 H Laboratory Data (last 24hrs): 10/17/18 11:15 Potassium 3.3 L Carbon Dioxide 30 Anion Gap 6.0 Creatinine 1.36 Est Cr Clr Drug Dosing 58.7 - Recent Pertinent Medications Outpatient Anti-diabetic Regimen: * insulin degludec 35 units HS, Novolog 7 units SQ daily and 5 units SQ BID * A1c = [8.8] % [09/2018] Risk Factors for Insulin Resistance: * Infection: current on rocephin * Diet: T2DM - Assessment & Plan Assessment & Plan: ASSESSMENT: * Patient is 78 year old male admitted with low BSGs (in the 50s per provider notes). PMH significant for CHF, afib, CAD, CKD. Type 2 diabetic managed on insulin degludec and novolog at home. * Possible UTI - started on rocephin * BSGs around lunchtime today ~114 mg/dL - will utilize basal/bolus dosing. Will convert insulin degludec to Lantus as it is a 1:1 conversion. * Will utilize novolog coverage based upon stress of 1 and 2 - will likely need to titrate regimen based upon needs PLAN FOR INPATIENT GLYCEMIC CONTROL: * Basal insulin - will add on scale for this evening based on BSG - Lantus 10 units for BSG less than 120 mg/dL - Lantus 20 units for BSG 120-180 mg/dL - Lantus 30 units for BSG greater than 180 mg/dL * Bolus insulin * NovoLog per scale ACHS or Q6hrs while NPO * Goal Range: Low 110 mg/dL - High 140 mg/dL * Correction Factor: 25 mg/dL/unit * Nutritional / Prandial insulin per carb ratio of 1 unit per 8 grams CHO consumed * Please note that the plan above was derived based on current level of insulin resistance and hospital stress. These recommendations are appropriate for inpatient admission only. Plan of care upon discharge will need to be reassessed to avoid potential outpatient hypo/hyperglycemia. Thank you.
[2018-10-17] MEDS ORDERED: WARFARIN SOD 5 MG TAB PO SCH (17:00)
[2018-10-17] MEDS: INSULIN ASPART 100 UNITS/ML 3 ML PEN SC SCH ×2 (17:45→21:23)
[2018-10-17] MEDS ORDERED: cefTRIAXone SODIUM 1,000 MG in DEXTROSE 5% 50 ML IV SCH (18:00)
[2018-10-17] MEDS ORDERED: INSULIN DEGLUDEC 20 UNIT SQ SCH (21:00)
[2018-10-17] MEDS: MEMANTINE HCL 10 MG TAB PO SCH (21:16)
[2018-10-17] MEDS: ATORVASTATIN 40 MG TAB PO SCH (21:16)
[2018-10-17] MEDS: METOPROLOL TARTRATE 25 MG TAB PO SCH (21:17)
[2018-10-17] MEDS: INSULIN GLARGINE SOLOSTAR 100 UNITS/ML 3 ML PEN SC SCH (21:22)
[2018-10-18] MEDS ORDERED: INSULIN ASPART 100 UNITS/ML 3 ML PEN SC SCH
[2018-10-18 07:16] LABS: Hematocrit (blood only) 38.1 % (42-52); Hemoglobin 12.8 g/dL (14.0-18.0); Mean Corpuscular Hgb Conc 33.6 g/dL (32-36); Mean Corpuscular Volume 90.1 fL (80-100); Platelet Count 202 K/uL (130-400); RDW Coefficient of Variation 14.3 % (11.5-14.5); RDW Standard Deviation 47.1 fL (36.4-46.3); Red Blood Count 4.23 M/uL (4.7-6.1); White Blood Count 9.86 K/uL (4.8-10.8)
[2018-10-18 07:25] LABS: INR 1.3 (0.9-1.1); Prothrombin Time 13.1 Seconds (9.0-12.0)
[2018-10-18 07:31] LABS: Estimated Average Glucose 194 mg/dl
[2018-10-18] MEDS: METOPROLOL TARTRATE 25 MG TAB PO SCH ×2 (07:37→21:07)
[2018-10-18] MEDS: FINASTERIDE 5 MG TAB PO SCH (07:38)
[2018-10-18] MEDS: ISOSORBIDE MONO EXTENDED REL 60 MG TABCR PO SCH (07:38)
[2018-10-18] MEDS: SERTRALINE HCL 100 MG TABLET PO SCH (07:38)
[2018-10-18] MEDS: ASPIRIN 81 MG ECTAB PO SCH (07:38)
[2018-10-18] MEDS: TAMSULOSIN HCL 0.4 MG CAP PO SCH (07:38)
[2018-10-18] MEDS: FUROSEMIDE 40 MG TAB PO SCH (07:38)
[2018-10-18] MEDS: MEMANTINE HCL 10 MG TAB PO SCH ×2 (07:39→21:08)
[2018-10-18] MEDS: THIAMINE HCL 100 MG TAB PO SCH (07:39)
[2018-10-18 07:49] LABS: BUN Creatinine Ratio 16.4 (10-20); Calcium 8.4 mg/dl (8.5-10.1); Creatinine Clr Calc Pharmacy 57.8 ml/min; Est GFR (Non-African American) 48.3; Magnesium 1.9 mg/dl (1.8-2.4); Potassium 4.1 mmol/L (3.5-5.1)
[2018-10-18] MEDS: INSULIN ASPART 100 UNITS/ML 3 ML PEN SC SCH ×4 (08:39→21:09)
--- NOTE | 2018-10-18 09:22 | Neurology Consultation ---
Date of Consultation October 18, 2018 Assessment & Plan (1) Stroke: This is a 78-year-old right-handed and decreased responsiveness. Concerns for possible small left temporal subacute ischemic stroke on CT of the head. Patient appears to be at his neurological baseline this morning. Stroke risk factors include A. fib with frequent subtherapeutic INRs, diabetes, and possibly mild obstructive sleep apnea. Patient does have baseline cognitive deficits and neuropathy secondary to diabetes. Recommendations: MRI of the brain is pending for further evaluation of possible left temporal ischemic stroke. Recommend MRA or CTA of the head and neck for further evaluation of stroke etiology. If unable to obtain, patient needs at least an ultrasound of the carotids. I have ordered lipid profile this morning and echocardiogram for further evaluation of stroke risk factors. Follow-up echocardiogram results to rule out cardiac thrombus. Patient appears to have frequent subtherapeutic INRs on Coumadin. Consider 1 of the newer anticoagulation agents. Patient is followed by cardiology and can get their opinion on switching to a newer anticoagulation agent. Patient needs speech evaluation ordered. Follow-up PT/OT evaluation for discharge planning. Blood pressure recommendations while in hospital 175/95-150/80 (MAPS 90-110) Avoid hypotension and dehydration Stroke risk factor modifications and recommendations: Blood pressure recommendations for the first month post hospital discharge 150/ 90-130/80, and after that blood pressure recommendations 130/80-110/70 Total cholesterol goal 100- 200 and LDL goal less than 70 Hemoglobin A1c goal less than 7 Encourage cardiovascular exercise at least 3 times a week for 30 minutes. Tobacco cessation Follow-up in neurology clinic in 1 month for post stroke hospital follow-up. If there is any questions or concerns, feel free to call/page me. History of Present Illness Reason for Consultation: Consult for stroke Attending Physician: Oscar Doll DO History of Present Illness This is a 78-year-old with lethargy and decreased responsiveness. He was treated for recent UTI and does self-catheterization. Per review of his outpatient chart he is treated for dementia and on Namenda. Has chronic kidney disease and follows with cardiology for A. fib. He is on Coumadin but often his INR seem to be low. Patient admits that sometimes he goes to sleep early and does not take his Coumadin. Patient this morning reports that he feels like he is back to his baseline and wants to go home. He denies any new numbness or weakness. He does report some old numbness and tingling in his distal fingers and feet that has been long- standing. He reports at home that he has a walker but typically will ambulate within his home unassisted. Denies any recent falls. Reports that his vision has been off for a while but no acute vision changes. He denies any trouble with his speech. Denies any trouble eating or swallowing. Denies any history of stroke. CT of the head done in the emergency room was concerning for a possible left temporal subacute ischemic stroke. Report and images were reviewed by myself. Total cholesterol 97, LDL 49, HDL 36, triglycerides 59, hemoglobin A1c 8.4 Creatinine 1.3 Past medical history: Diabetes with neuropathy, CHF/CAD, A. fib on Coumadin, COPD, CKD, dementia on Namenda, reported mild obstructive sleep apnea Family history: CAD and hypertension Social history: Patient reports that he has a walker but walks unassisted within his home. He reports that he is independent his activities of daily living. Chews tobacco. Allergies Allergy/AdvReac Type Severity Reaction Status Date / Time codeine AdvReac Intermediate EMESIS Verified 10/17/18 11:42 Iodinated Contrast- Oral and AdvReac Mild NAUSEA Verified 10/17/18 11:42 IV Dye Home Medications Home Medications Medication Instructions Recorded Confirmed Type aspirin [Aspir-81] 81 mg PO DAILY 10/17/18 10/17/18 History atorvastatin 40 mg PO HS 10/17/18 10/17/18 History cholecalciferol (vitamin D3) 50,000 unit PO WK 10/17/18 10/17/18 History [Vitamin D3] finasteride 5 mg PO DAILY 10/17/18 10/17/18 History fluticasone-salmeterol [Advair HFA] 2 puff INHALATION Q12H 10/17/18 10/17/18 History furosemide 40 mg PO DAILY 10/17/18 10/17/18 History insulin aspart U-100 [Novolog 5 unit SUBCUT BID 10/17/18 10/17/18 History Flexpen U-100 Insulin] insulin aspart U-100 [Novolog 7 unit SUBCUT DAILY 10/17/18 10/17/18 History Flexpen U-100 Insulin] insulin degludec [Tresiba 35 unit SUBCUT HS 10/17/18 10/17/18 History FlexTouch U-100] ipratropium-albuterol 3 ml INHALATION Q4H PRN 10/17/18 10/17/18 History ipratropium-albuterol [Combivent 1 puff INHALATION QID 10/17/18 10/17/18 History Respimat] isosorbide mononitrate 60 mg PO DAILY 10/17/18 10/17/18 History memantine 10 mg PO BID 10/17/18 10/17/18 History metoprolol tartrate 25 mg PO BID 10/17/18 10/17/18 History nitrofurantoin macrocrystal 50 mg PO HS 10/17/18 10/17/18 History nitroglycerin 1 patch TRANSDERMAL DAILY 10/17/18 10/17/18 History nitroglycerin 1 spray SUBLINGUAL Q5M PRN 10/17/18 10/17/18 History ranitidine HCl 300 mg PO HS 10/17/18 10/17/18 History sertraline 100 mg PO DAILY 10/17/18 10/17/18 History tamsulosin 0.4 mg PO DAILY 10/17/18 10/17/18 History thiamine HCl (vitamin B1) 100 mg PO DAILY 10/17/18 10/17/18 History warfarin 7.5 mg PO 5XWK 10/17/18 10/17/18 History warfarin 10 mg PO 2XWK 10/17/18 10/17/18 History Patient History Medical History COPD (chronic obstructive pulmonary disease) (Chronic) Asthma (Chronic) CHF (congestive heart failure) (Chronic) Anxiety (Chronic) Depression (Chronic) Mild sleep apnea (Chronic) DM (diabetes mellitus) (Chronic) Peripheral neuropathy (Chronic) CAD (coronary artery disease) (Chronic 05/09/14) CHF (congestive heart failure) (Chronic) Atrial fibrillation (Chronic) Alzheimers disease (Chronic) Surgical History Hx of CABG (Resolved) H/O hemicolectomy (Resolved) Family History Mother Hypertension Social History Current Living Situation: Spouse Other Information That Helps Us Care for You: No Feels Safe at Home: Yes Safety Concerns: Feels Safe At This Time Smoking Status: Current some day smoker Tobacco Type: smokeless tobacco Do You Dip or Chew Tobacco: Yes Hx Alcohol Use: Yes Alcohol type: hard liquor Alcohol Intake Frequency: holidays/special occasions only Hx Substance Use: Yes Substance Use Type Other:: medical marijuana Beliefs That Will Affect Care: Quaker Quaker Beliefs: jehovah's witness Preferred Language: Hebrew Communication Ability: Effective Picker 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 Not oriented to year. Able to give his own history. Good fund of knowledge. Attention concentration normal for the situation. Remote memory seems intact but likely has some short-term memory loss and cognitive dysfunction. Speech is fluent without any dysarthria or aphasia noted Cranial nerves: Visual cervantes intact to confrontation. Funduscopic examination was difficult to visualize. Pupils equally round and reactive to light. Extraocular muscles intact without nystagmus. No facial asymmetry noted. Facial sensation intact. Tongue midline. Good palatal elevation. Good shoulder shrug bilaterally. Hearing grossly intact voice. Strength: 5/5 both proximal and distal in all extremities. No arm drift.Tone is normal. Sensation: Grossly intact to light touch in all extremities. Has decreased sensation in distal fingers and feet bilaterally. Deep tendon reflexes: +1 in bilateral biceps and patellar. Coordination: Patient has good finger to nose without dysmetria. Station sitting on the side of the bed is normal. _ (1) Stroke CVA mechanism: Laterality of affected vessel: Precerebral and cerebral artery:
[2018-10-18] MEDS ORDERED: PERFLUTREN LIPID MICROSPHERE (DEFINITY) IV ONE (10:06)
--- NOTE | 2018-10-18 14:15 | Family Medicine Progress Note ---
Date of Service October 18, 2018 Assessment & Plan (1) Lethargy: Mr. Townsend is a 78 year old male with a past medical history of CHF, COPD , diabetes mellitus, atrial fibrillation, coronary artery disease s/p CABG, CKD , prior DVT, Alzheimer's disease who presented to the emergency department due to altered mental status and lethargy. Patient was found to be hypoglycemic by EMS (glucose in 50s). (1) Lethargy: - Likely secondary to hypoglycemia (in 50s on EMS arrival) - Monitor blood sugars -> pt had another low this AM which was corrected - lethargy seems improved - unsure of why pt had low sugar at this time given no changes in medication regimen or diet & pt was doing well prior (2) Stroke: - CT head on 10/17 showed a small subacute stroke in the left temporal lobe. Possibly due to embolic phenomenon as his INR is recurrently <2 for his afib. - MRI brain ordered - Thank you to Neurology for recommendations -> MRA head and neck ordered - lipids optimally controlled -> Total cholesterol 97, LDL 49, HDL 36, triglycerides 59 - suboptimal control of DM -> hemoglobin A1c 8.4 - ECHO showed EF of 45-50% and global hypokinesis of left ventricle, LVH, moderate to severe and mild AR. No thrombus visualized (3) CHF (congestive heart failure): - Echo in 12/2017 showed EF 50-55%, hypokinetic inferior wall, apex, and apical anterior wall. Per prior cardiology notes, baseline weight is ~285 lbs. No shortness of breath, LE edema, or other concerns for CHF exacerbation at this time. - Continue home Lasix 40mg PO daily - Monitor volume status (4) DM (diabetes mellitus): - A1c of 8.8% in 09/2018, indicating sub-optimal control of blood sugars - thank you to pharmacy for glycemic consult - Lower home Tresiba to 25 units QHS - Sliding scale insulin (5) Atrial fibrillation: - INR 1.3. Outpatient PCP notes indicate patient often cancels outpatient visits when he's feeling well, making compliance a concern. Chads-Vasc is 7, giving him an 11.2% risk of stroke per year. - Continue home warfarin. Pt likely not a good candidate for NOAC given CKD, elevated BMI and also poor compliance - Monitor INR (6) CAD (coronary artery disease): - S/p 2vCABG with bare metal stent in one of the graft veins - Continue ASA, statin, beta-bartolome, Imdur (7) COPD (chronic obstructive pulmonary disease): - Continue home inhalers - DuoNebs PRN (8) CKD (chronic kidney disease) stage 3, GFR 30-59 ml/min: - Baseline Cr appears to be ~1.5 - 1.8 from priors. On admission, Cr was only 1.36. - Monitor Cr while inpatient - Renally-dose meds for GFR ~50. (9) DVT (deep venous thrombosis): - Per outpatient notes, has a history of DVTs, though none recently. - Warfarin as above - Lovenox 40mg daily until INR therapeutic Disposition: Patient lives at home with . Seen by Occupational Therapy, who feels patient would benefit from home health services. Patient would likely benefit from regular home nursing visits to help w/medication compliance. Code status: FULL. (2) Stroke: (3) Severe aortic stenosis: Supervising Physician Co-Signing Physician Notes I personally examined the patient and verified all lema points of history and exam, discussed case, and agree with decision making with Dr Mclaughlin. "I feel great" he notes no current complaints. Overall he feels better. Vitals noted, in general he is awake and alert no distress. HEENT normal cephalic atraumatic mucous members are moist. Skin shows no rashes no pallor or icterus. Lungs are unlabored no accessory muscle use good effort. Altered mental statusthis appears to be related to his hypoglycemia, for clarification sake not his stroke. Given his home situation is probably a mismatch of insulin and oral intake. Hypoglycemia/uncontrolled diabetesworking on better support at home Strokeworkup as above, secondary risk reduction, more than likely he will be okay to do outpatient therapy Severe aortic stenosisoutpatient follow-up, currently appears to be asymptomatic from this Subjective Mr. Townsend reports no new complaints today. He states he feels well, except he feels a little tired. He reports that his sugar normally runs in the 300s, and that this was the first time he had a low sugar level. He is unsure of why this is the case, he states he has been feeling well recently and has not changed his diet or insulin regimen. He notes that his daughter did administer the insulin this morning without checking his glucose level first. He denies any neurological complaints, such as disturbances in gait, speech, memory, weakness of arms or legs. He denies any cardiac symptoms such as chest pain, shortness of breath, palpitations. Constitutional: + fatigue; no fever and no chills Eyes: no diplopia Respiratory: no cough Cardiovascular: no chest pain, no palpitations, no syncope, no edema and no calf pain Gastrointestinal: no abdominal pain, no nausea and no vomiting Neurologic: no gait abnormality, no localized weakness, no abnormal speech and no behavioral changes Physical Exam 2 Vital Signs (Past 24 Hours): Last Vital Signs Temp 36.3 C L 10/18/18 07:39 Pulse 71 10/18/18 07:39 Resp 20 10/18/18 07:39 BP 174/92 H 10/18/18 07:39 Pulse Ox 95 10/18/18 13:38 Constitutional: + obese and + disheveled Eyes: PERRL, conjunctivae normal, anicteric sclerae Respiratory: normal respiratory effort, lungs clear to auscultation Cardiovascular: Rate/Rhythm: regular rate and regular rhythm Extremities: no calf tenderness and no pedal edema Gastrointestinal (Abdomen): normal bowel sounds, soft, nontender, no hepatosplenomegaly Skin: no rashes, warm and dry Neurologic: CN's II-XI intact bilaterally and awake Results & Data Laboratory Results Laboratory Results - last 24 hr 10/17/18 10/18/18 10/18/18 21:22 00:00 06:49 WBC 9.86 RBC 4.23 L Hgb 12.8 L Hct 38.1 L MCV 90.1 MCH 30.3 MCHC 33.6 RDW Std Deviation 47.1 H RDW Coeff of Marie 14.3 Plt Count 202 MPV 10.0 PT INR Sodium Potassium Chloride Carbon Dioxide Anion Gap BUN Creatinine Est Cr Clr Drug Dosing Est GFR ( Amer) Est GFR (Non-Af Amer) BUN/Creatinine Ratio Glucose POC Glucose 95 81 Estimat Average Glucose Hemoglobin A1c Calcium Magnesium Triglycerides Cholesterol LDL Cholesterol, Calc VLDL Cholesterol, Calc HDL Cholesterol Cholesterol/HDL Ratio 10/18/18 10/18/18 10/18/18 06:49 06:49 06:49 WBC RBC Hgb Hct MCV MCH MCHC RDW Std Deviation RDW Coeff of Marie Plt Count MPV PT 13.1 H INR 1.3 H Sodium 139 Potassium 4.1 D Chloride 105 Carbon Dioxide 28 Anion Gap 6.0 BUN 23 H Creatinine 1.38 Est Cr Clr Drug Dosing 57.8 Est GFR ( Amer) 56.0 Est GFR (Non-Af Amer) 48.3 BUN/Creatinine Ratio 16.4 Glucose 57 L POC Glucose Estimat Average Glucose 194 Hemoglobin A1c 8.4 H Calcium 8.4 L Magnesium 1.9 Triglycerides 59 Cholesterol 97 LDL Cholesterol, Calc 49 VLDL Cholesterol, Calc 12 HDL Cholesterol 36 Cholesterol/HDL Ratio 3 10/18/18 10/18/18 10/18/18 07:57 07:58 08:25 WBC RBC Hgb Hct MCV MCH MCHC RDW Std Deviation RDW Coeff of Marie Plt Count MPV PT INR Sodium Potassium Chloride Carbon Dioxide Anion Gap BUN Creatinine Est Cr Clr Drug Dosing Est GFR ( Amer) Est GFR (Non-Af Amer) BUN/Creatinine Ratio Glucose POC Glucose 53 L* 64 L* 81 Estimat Average Glucose Hemoglobin A1c Calcium Magnesium Triglycerides Cholesterol LDL Cholesterol, Calc VLDL Cholesterol, Calc HDL Cholesterol Cholesterol/HDL Ratio 10/18/18 10/18/18 11:53 16:36 WBC RBC Hgb Hct MCV MCH MCHC RDW Std Deviation RDW Coeff of Marie Plt Count MPV PT INR Sodium Potassium Chloride Carbon Dioxide Anion Gap BUN Creatinine Est Cr Clr Drug Dosing Est GFR ( Amer) Est GFR (Non-Af Amer) BUN/Creatinine Ratio Glucose POC Glucose 187 H 153 H Estimat Average Glucose Hemoglobin A1c Calcium Magnesium Triglycerides Cholesterol LDL Cholesterol, Calc VLDL Cholesterol, Calc HDL Cholesterol Cholesterol/HDL Ratio Medications Administered Current Inpatient Medications Acetaminophen (Tylenol) 650 mg PO Q4H PRN PRN Reason: pain/fever Stop: 11/16/18 15:13 Aspirin (Ecotrin Ectab) 81 mg PO DAILY LIZ Stop: 11/17/18 08:59 Last Admin: 10/18/18 07:38 Dose: 81 mg Atorvastatin Calcium (Lipitor) 40 mg PO HS [facility] Stop: 11/16/18 20:59 Last Admin: 10/17/18 21:16 Dose: 40 mg Dextrose (Dextrose 50%) 25 - 50 ml IV UD PRN; Protocol PRN Reason: Hypoglycemia Protocol Stop: 11/16/18 15:13 Finasteride (Proscar) 5 mg PO DAILY [facility] Stop: 11/17/18 08:59 Last Admin: 10/18/18 07:38 Dose: 5 mg Furosemide (Lasix) 40 mg PO DAILY LIZ Stop: 11/17/18 08:59 Last Admin: 10/18/18 07:38 Dose: 40 mg Glucagon (Glucagen) 1 mg SQ UD PRN; Protocol PRN Reason: Hypoglycemia Protocol Stop: 11/16/18 15:13 Glucose (Glucose 40%) 15 - 30 gm PO UD PRN; Protocol PRN Reason: Hypoglycemia Protocol Stop: 11/16/18 15:13 Glucose (Dex4 Glucose) 4 - 8 tabs PO UD PRN; Protocol PRN Reason: Hypoglycemia Protocol Stop: 11/16/18 15:13 Insulin Aspart (Novolog Flexpen) 0 units SC [facility]; Protocol Stop: 11/16/18 16:29 Last Admin: 10/18/18 13:23 Dose: 7 units Insulin Glargine (Lantus Solostar Pen) 0 units SC [facility]; Protocol Stop: 11/16/18 20:59 Last Admin: 10/17/18 21:22 Dose: 10 units Isosorbide Mononitrate (Imdur Extended Rel) 60 mg PO DAILY [facility] Stop: 11/17/18 08:59 Last Admin: 10/18/18 07:38 Dose: 60 mg Memantine (Namenda) 10 mg PO BID [facility] Stop: 11/16/18 20:59 Last Admin: 10/18/18 07:39 Dose: 10 mg Metoprolol Tartrate (Lopressor) 25 mg PO BID [facility] Stop: 11/16/18 20:59 Last Admin: 10/18/18 07:37 Dose: 25 mg Miscellaneous (Carbohydrates For Hypoglycemia) 15 - 30 gm PO UD PRN PRN Reason: Hypoglycemia Treatment Stop: 11/16/18 15:13 Last Admin: 10/18/18 08:07 Dose: 15 gm Miscellaneous (Order Awaiting Action) 1 ea N/A QS LIZ Stop: 11/17/18 00:00 Last Admin: 10/18/18 16:33 Dose: Not Given Miscellaneous Information (Consult Glycemic Management Pharmacy) 1 ea N/A UD PRN; Protocol PRN Reason: Consult Stop: 11/16/18 15:24 Ranitidine HCl (Zantac) 300 mg PO HS [facility] Stop: 11/16/18 20:59 Last Admin: 10/17/18 21:17 Dose: 300 mg Sertraline HCl (Zoloft) 100 mg PO DAILY [facility] Stop: 11/17/18 08:59 Last Admin: 10/18/18 07:38 Dose: 100 mg Tamsulosin HCl (Flomax) 0.4 mg PO DAILY [facility] Stop: 11/17/18 08:59 Last Admin: 10/18/18 07:38 Dose: 0.4 mg Thiamine HCl (Vitamin B-1) 100 mg PO DAILY [facility] Stop: 11/17/18 08:59 Last Admin: 10/18/18 07:39 Dose: 100 mg Warfarin Sodium (Coumadin) 10 mg PO TuFr@1600 [facility] Stop: 11/16/18 16:59 Last Admin: 10/17/18 17:55 Dose: 10 mg Warfarin Sodium (Coumadin) 7.5 mg PO SuMoWeThSa@1600 [facility] Stop: 11/17/18 15:59 Last Admin: 10/18/18 16:33 Dose: 7.5 mg Resident Activity Tracking Resident Involvement: Resident Care Provided Care Provided: [facility] _ (1) Stroke CVA mechanism: Laterality of affected vessel: Precerebral and cerebral artery:
--- NOTE | 2018-10-18 14:31 | Pharmacy Report ---
Pharmacy Glycemic Short Note 2 - Date of Service October 18, 2018 - Glycemic Short BSG Results (Last 24 hours): 10/17/18 10/17/18 10/18/18 16:44 21:22 00:00 Glucose POC Glucose 86 95 81 10/18/18 10/18/18 10/18/18 06:49 07:57 07:58 Glucose 57 L POC Glucose 53 L* 64 L* 10/18/18 10/18/18 08:25 11:53 Glucose POC Glucose 81 187 H ASSESSMENT: 2-6: * Patient had 14 units of insulin yesterday, 10 units of which were basal insulin. BSGs did drop this morning to 57 mg/dL - per nurse patient treated per hypoglycemia protocol but did not have any symptoms * Loosened CF/CR with lunch today - unclear to insulin requirements at this time. Patient previously had lower BSGs prior to admission. * Will add scale for Lantus dosing this evening - with hold parameters * Also loosened goal range for BSGs in hopes to avoid future low BSGs 2-5: * Patient is 78 year old male admitted with low BSGs (in the 50s per provider notes). PMH significant for CHF, afib, CAD, CKD. Type 2 diabetic managed on insulin degludec and novolog at home. * Possible UTI - started on rocephin * BSGs around lunchtime today ~114 mg/dL - will utilize basal/bolus dosing. Will convert insulin degludec to Lantus as it is a 1:1 conversion. * Will utilize novolog coverage based upon stress of 1 and 2 - will likely need to titrate regimen based upon needs PLAN FOR INPATIENT GLYCEMIC CONTROL: * Basal insulin - will add on scale for this evening based on BSG - Hold Lantus for BSG less than 120 mg/dL - Lantus 10 units for BSG 120-180 mg/dL - Lantus 20 units for BSG greater than 180 mg/dL * Bolus insulin - adjusted CF/CR * NovoLog per scale ACHS or Q6hrs while NPO * Goal Range: Low 120 mg/dL - High 160 mg/dL * Correction Factor: 30 mg/dL/unit * Nutritional / Prandial insulin per carb ratio of 1 unit per 12 grams CHO consumed PLAN FOR DISCHARGE: * Would recommend decrease in insulin regimen for outpatient use since patient with low BSGs prior to admission. Hard to evaluate current insulin needs at this time during hospital stay
[2018-10-18] MEDS ORDERED: WARFARIN SOD 7.5 MG TAB PO SCH (16:00)
[2018-10-18] MEDS: INSULIN GLARGINE SOLOSTAR 100 UNITS/ML 3 ML PEN SC SCH (21:08)
[2018-10-18] MEDS: ATORVASTATIN 40 MG TAB PO SCH (21:08)
[2018-10-19 06:07] LABS: INR 1.4 (0.9-1.1); Prothrombin Time 14.3 Seconds (9.0-12.0)
[2018-10-19] MEDS: THIAMINE HCL 100 MG TAB PO SCH (08:29)
[2018-10-19] MEDS: ISOSORBIDE MONO EXTENDED REL 60 MG TABCR PO SCH (08:29)
[2018-10-19] MEDS: TAMSULOSIN HCL 0.4 MG CAP PO SCH (08:29)
[2018-10-19] MEDS: SERTRALINE HCL 100 MG TABLET PO SCH (08:29)
[2018-10-19] MEDS: ASPIRIN 81 MG ECTAB PO SCH (08:29)
[2018-10-19] MEDS: FINASTERIDE 5 MG TAB PO SCH (08:29)
[2018-10-19] MEDS: FUROSEMIDE 40 MG TAB PO SCH (08:29)
[2018-10-19] MEDS: MEMANTINE HCL 10 MG TAB PO SCH (08:29)
[2018-10-19] MEDS: METOPROLOL TARTRATE 25 MG TAB PO SCH (08:29)
[2018-10-19] MEDS: INSULIN ASPART 100 UNITS/ML 3 ML PEN SC SCH ×2 (08:30→13:04)
[2018-10-19] MEDS ORDERED: WARFARIN SOD 10 MG TAB PO ONE (08:39)
--- NOTE | 2018-10-19 12:21 | Magnetic Resonance Report ---
MRI OF THE BRAIN WITHOUT CONTRAST CLINICAL HISTORY: Subacute CVA seen on CT. Confusion. Left facial droop. COMPARISON STUDY: Head CT October 17, 2018. TECHNIQUE: Utilizing a 1.5 Eliane magnet and dedicated coil, multiplanar, multiecho imaging of the bra in was performed without IV contrast. FINDINGS: There are no foci of restricted diffusion to suggest acute infarct. No acute intracranial h emorrhage, midline shift or mass effect is present. Scattered white matter T2 hyperintense foci sugge st mild small vessel disease. There are a few old lacunar infarcts within the bilateral cerebellar he mispheres. The possible subacute infarct shown on head CT of October 17, 2018 was artifactual. There is moderate atrophy. Calvarial signal is grossly maintained. Exam is mildly compromised by motion art ifact. No intracranial masses identified on this unenhanced exam. IMPRESSION: 1. No acute intracranial findings. The possible subacute infarct on head CT was artifactual. 2. Moderate atrophy. Mild small vessel disease. 3. Old lacunar infarcts within the bilateral cerebellar hemispheres. Electronically signed by: Atul Brenner M.D. 10/19/2018 12:20 PM
--- NOTE | 2018-10-19 12:22 | Magnetic Resonance Report ---
MRA OF THE INTRACRANIAL CIRCULATION WITHOUT CONTRAST CLINICAL HISTORY: Possible stroke. Confusion. Left facial droop. COMPARISON STUDY: Head CT October 17, 2018. TECHNIQUE: Utilizing a 1.5 Eliane magnet and 3-D [id number] technique, unenhanced MRA of the intra cranial circulation was obtained. FINDINGS: The bilateral M1, M2, A1 and A2 segments are patent. Intracranial vascular irregularity is most evident within the left middle cerebral artery. In part, this is likely artifactual. There is no abrupt vessel cutoff. There is no intracranial aneurysm. Note is made of apparent stenosis of the op hthalmic portion of the left internal carotid artery shown best on axial image 80 of 200. The distal bilateral vertebral arteries are patent. The basilar artery is patent. The bilateral posterior cerebr al arteries are patent. IMPRESSION: 1. Exam mildly compromised by artifact. Probable stenosis of the ophthalmic portion of the left inter nal carotid artery. Apparent slight asymmetric diminished flow within the left middle cerebral artery which is probably artifactual. 2. No intracranial aneurysm or abrupt vessel cut off. Electronically signed by: Atul Brenner M.D. 10/19/2018 12:21 PM
--- NOTE | 2018-10-19 13:06 | Magnetic Resonance Report ---
MR angio neck wo con CLINICAL HISTORY: 78 years-old Male presenting with possible stroke, forgetfulness, Alzheimer's disea se, worsening symptoms of confusion and unsteadiness, left facial droop. TECHNIQUE: MR angiography of the neck was performed without the use of intravenous contrast using 2-D [id number] technique. 3-D volumetric and/or maximum intensity projection (MIP) images were subse quently reconstructed for review. IV contrast: None. Stenosis measurements were based on NASCET-like criteria (distal lumen diameter as the denominator for stenosis measurement). COMPARISON: None. FINDINGS: Localizer images: Median sternotomy wires. Susceptibility artifact in the anterior right chest wall, correlating with the Mediport. Small bilateral pleural effusions. Cardiomegaly. Extremely limited examination due to motion and artifact. Grossly patent bilateral common carotid art eries and bilateral vertebral arteries. Internal carotid arteries grossly patent. IMPRESSION: 1. Extremely limited examination with grossly patent bilateral common and internal carotid arteries as well as patent vertebral arteries. Cervical arterial Doppler ultrasound recommended as this is an essentially nondiagnostic study. Electronically signed by: James Bedolla M.D. 10/19/2018 1:05 PM
--- NOTE | 2018-10-19 15:15 | Discharge Summary ---
Date of Service October 19, 2018 Admission HPI Per Admitting Provider 78yo M w/ hx of CHF, COPD, and DM who presents with lethargy and altered mental status. Per patient and daughter who is in the room, he was in his normal state of health before bed last night. This morning, he reports he called his because he was feeling weak and asked her to come over. The daughter reports that when the arrived, he asked for a peanut butter sandwich, but only ate a small portion and then tried to get out of bed, but couldn't. EMS was called, and his blood sugar was found to be in the 50s. He was given D50 with blood sugar returning to the 100s, but he was still lethargic, and is being asked for admission. At present, he reports he is fatigued, but otherwise does not give any focal complaints. Principal Diagnosis Hypoglycemia Discharge Exam Constitutional + obese and + disheveled Respiratory normal respiratory effort, lungs clear to auscultation Cardiovascular Rate/Rhythm: regular rate; + abnormal rhythm (Irregularly irregular) Extremities: no calf tenderness and no pedal edema Gastrointestinal (Abdomen) normal bowel sounds, soft, nontender, no hepatosplenomegaly Psychiatric Affect: euthymic affect Mood: + depressed mood Discharge Data Allergies Allergy/AdvReac Type Severity Reaction Status Date / Time codeine AdvReac Intermediate EMESIS Verified 10/17/18 11:42 Iodinated Contrast- Oral and AdvReac Mild NAUSEA Verified 10/17/18 11:42 IV Dye Consultations 10/17/18 12:16 ED Decision to Admit Stat 10/17/18 15:14 Consult Neurology Routine Ordered Studies 10/17/18 11:13 CT head/brain wo con Stat 10/19/18 02:12 MR angio neck wo con Routine MR brain wo con Routine 10/19/18 02:13 MR angio head wo con Routine Hospital Course (1) Lethargy: Mr. Townsend is a 78 year old male with a past medical history of CHF, COPD , diabetes mellitus, atrial fibrillation, coronary artery disease s/p CABG, CKD , prior DVT, Alzheimer's disease who presented to the emergency department due to altered mental status and lethargy. Patient was found to be hypoglycemic by EMS (glucose in 50s). Lethargy: - secondary to hypoglycemia (in 50s on EMS arrival). Resolved prior to discharge - pt likely had low blood sugar due to administration of slightly higher dose of insulin in AM prior to eating. HbA1c was 8.4% and patient normally runs in 200s so it is understandable that a blood sugar level of 50 would have a profound effect on his mental state -Discussed monitoring blood sugar levels at home in order ensure optimal insulin dosing Stroke Work Up: - CT head on 10/17 showed a small subacute stroke in the left temporal lobe. - MRI brain did not confirm stroke, but did show "Moderate atrophy. Mild small vessel disease. Old lacunar infarcts within the bilateral cerebellar hemispheres " Stroke seen on CT was likely artifact - MRA of head and neck showed "Probable stenosis of the ophthalmic portion of the left internal carotid artery. Apparent slight asymmetric diminished flow within the left middle cerebral artery which is probably artifactual." - lipids optimally controlled -> Total cholesterol 97, LDL 49, HDL 36, triglycerides 59 -> continue atorvastatin - suboptimal control of DM -> hemoglobin A1c 8.4 - ECHO showed EF of 45-50% and global hypokinesis of left ventricle, LVH, moderate to severe and mild AR. No thrombus visualized -> f/u with cardiology for this -Seen by PT/OT who feels patient would benefit from home health services. Atrial fibrillation: - INR 1.3 on admission. Outpatient PCP notes indicate patient often cancels outpatient visits when he's feeling well, making compliance a concern. - Chads-Vasc is 7, giving him an 11.2% risk of stroke per year. - patient given 40mg of lovenox daily whilst in hospital - patient given increased dose of 10mg of warfarin prior to d/c. Recheck INR tomorrow. Arranging home health to check INR, to hopefully increase compliance - Continue home warfarin. Pt likely not a good candidate for NOAC given CKD, elevated BMI and also poor compliance. If he misses one or two doses of warfarin , he may be therapeutic for longer than if he misses a dose of NAOC w/a shorter half life. Chronic kidney disease stage 3, GFR 30-59 ml/min: - Baseline Cr appears to be ~1.5 - 1.8 from priors. - On admission, Cr was only 1.36. - Renally-dose meds for GFR ~50. Total Time Total Time Spent Total Time Spent (In Minutes): >30 Discharge Plan Discharge Items Patient Disposition: Home - Home Health Services Reason For Visit: LETHARGY, LOW BLOOD SUGAR Discharge Diagnosis: Low blood sugar level Discharge Goals: Improve disease control, Improve function, Learn about illness and Prevent disease Activity: Resume your previous activity Non-emergency contact: Primary Care Provider Call non-emergency contact if: you have any medication questions and your symptoms worsen Follow-up/Referrals: Deidra Correa MD [Primary Care Provider] - 10/26/18 10:00 am (Please, follow up with Dr. Correa on October 26 at 10:00 am. *If you need to change this appointment, call the office at [phone].) Farshad Parra MD [Physician] - 10/24/18 10:30 am (Please, follow up at [facility] Cardiology Office with Dr. Johny Parra on TuesdayOctober 24 at 10:30 am. *This office is located in [address] [facility] [place]. If you need to change this appointment, call the office at [phone].) Diet: Carb Consistent or DM2 and Heart Healthy Addtl Provider Instructions: Mr. Townsend, melly was admitted to [facility] due to low blood sugar level and concerns regarding a stroke. Your CT scan was concerning for a stroke, however the good news is that your MRI did not show a stroke. Since MRIs are more sensitive, this confirms that you did not have a stroke. Having said that, you are at risk for a stroke, due to your history of poorly controlled diabetes and the fact that your INR [Coumadin level] is not always within its target range. Stroke -MRI confirmed that you did not have a stroke at this time. It did show changes in your brain that are consistent with partial blockages in the blood flow, as a result of plaque formation -Please continue to take your atorvastatin. It is important that you take this every day as this will stabilize the plaque buildup in the arteries in your brain and reduce your cholesterol -Please also continue to remember to take your aspirin on a daily basis as this lowers your risk of blocked arteries in your brain and cause a stroke Atrial Fibrillation -You have an abnormal heart rhythm called atrial fibrillation, which is the reason that you are on warfarin to thin your blood -Because your heart beats abnormally, you are at an increased risk of a blood clot forming in your heart, that can travel to your brain and cause a stroke -This is why it is important for you to remember to take your warfarin as prescribed, in order to keep your blood thin enough so that this does not happen -Your INR (warfarin levels) were below what they should be in the hospital. We gave you an extra dose, and have asked home health to check your blood tomorrow and that your doctor know the results Aortic Stenosis -You had an ultrasound of your heart which a showed decreased ability of your heart to pump blood effectively. Your aortic valve, which pumps blood from your heart to the rest of your body is not functioning as well as it should be. Dr. Parra has been monitoring this, and we recommend that you follow-up with him, your appointment time is listed above. Please continue to take your other medications as prescribed. We recommend that you check your sugar at home in the morning and evening, and before and after each meal. Please keep a log of your blood sugar levels, and bring this with you the next time you see your doctor. This way your doctor can adjust your insulin based on your sugar readings so that you can avoid an episode of low sugar that brought you into the hospital. If you have any chest pain, shortness of breath, weakness in your arms or legs, difficulty with walking, slurred speech, please seek medical attention. Prescriptions: Continue furosemide 40 mg Tablet 40 mg PO DAILY RF: 0 atorvastatin 40 mg Tablet 40 mg PO HS RF: 0 nitrofurantoin macrocrystal 50 mg Capsule 50 mg PO HS RF: 0 ipratropium-albuterol 0.5 mg-3 mg(2.5 mg base)/3 mL Solution For Nebulization 3 ml INHALATION Q4H PRN (Reason: Shortness Of Breath) RF: 0 ranitidine HCl 300 mg Tablet 300 mg PO HS RF: 0 nitroglycerin 0.2 mg/hr Patch 24 Hour 1 patch TRANSDERMAL DAILY RF: 0 sertraline 100 mg Tablet 100 mg PO DAILY RF: 0 thiamine HCl (vitamin B1) 100 mg Tablet 100 mg PO DAILY RF: 0 aspirin [Aspir-81] 81 mg Tablet,Delayed Release (Dr/Ec) 81 mg PO DAILY RF: 0 isosorbide mononitrate 60 mg Tablet Extended Release 24 Hr 60 mg PO DAILY RF: 0 tamsulosin 0.4 mg Capsule 0.4 mg PO DAILY RF: 0 warfarin 5 mg Tablet 10 mg PO 2XWK RF: 0 warfarin 5 mg Tablet 7.5 mg PO 5XWK RF: 0 nitroglycerin 400 mcg/spray [place],Non-Aerosol 1 spray Sublingual Q5M PRN (Reason: Chest Pain) RF: 0 finasteride 5 mg Tablet 5 mg PO DAILY RF: 0 insulin aspart U-100 [Novolog Flexpen U-100 Insulin] 100 unit/mL Insulin Pen 5 unit SUBCUT BID RF: 0 insulin aspart U-100 [Novolog Flexpen U-100 Insulin] 100 unit/mL Insulin Pen 7 unit SUBCUT DAILY RF: 0 memantine 10 mg Tablet 10 mg PO BID RF: 0 metoprolol tartrate 25 mg Tablet 25 mg PO BID RF: 0 fluticasone-salmeterol [Advair HFA] 115-21 mcg/actuation Hfa Aerosol Inhaler 2 puff INHALATION Q12H RF: 0 cholecalciferol (vitamin D3) [Vitamin D3] 5,000 unit Tablet 50,000 unit PO WK RF: 0 insulin degludec [Tresiba FlexTouch U-100] 100 unit/mL (3 mL) Insulin Pen 35 unit SUBCUT HS RF: 0 ipratropium-albuterol [Combivent Respimat] 20-100 mcg/actuation Mist 1 puff INHALATION QID RF: 0 Stand-Alone Forms: [facility] Discharge Orders: Discharge Order (Routine); Ordered 10/19/18 Ordered By: Esperanza Mclaughlin Admission Data Admit Date/Time: 10/17/18 13:30 Attending Provider: Oscar Doll Admit Provider: Quentin Handley Primary Care Provider: Deidra Correa Other Providers: Lakesha Valencia Service: Medical Other Interventions: Discharge Summary Assessment (RN) Last Done: 10/19/18 16:26 DC Date/Time DO NOT enter until pt leaves facility: 10/19/18 18:15 Supervising Physician Co-Signing Physician Notes I personally examined the patient and verified all lema points of history and exam, discussed case, and agree with decision making with Dr Mclaughlin. Feeling okay and wants to go home. Extensive discussion on risk factor reduction. He also admits to a degree of depression. He does seem safe with himself at home, and this can be followed up with his PCP. Vitals noted, in general he is awake and alert no distress. HEENT normocephalic atraumatic mucous membranes are moist. Skin shows no rashes no pallor or icterus. Altered mental statusappears to have been related to hypoglycemia. This has resolved. That seem to be on the basis of an insulin/intake mismatch. Overall with his A1c being elevated his main problem is running too high. Close PCP follow-up. Abnormal head CTthis appears to have been artifact, although all of our discussions on risk factor reduction will still be relevant, given that he is very high risk for vascular disease with his current metabolic disarray Geriatric depressionhe seems to be safe with himself at home, and given his rather extensive med list I am not sure that adding a new med is likely to get as much benefit as it may cause problems with polypharmacy. At least at this point I will defer to PCP in this regard. safe/stable for home Resident Activity Tracking Resident Involvement: Resident Care Provided Care Provided: Adult Hospital Medicine
== END 2018-10-19 18:15 | disposition home health service (06) | DRG 637 ==
LOC: ED 11:00 → 4W 13:30 → SUATTDRO 13:30 → 4W 13:54
DX: F41.9 Anxiety disorder, unspecified; Z79.01 Long term (current) use of anticoagulants; Z68.39 Body mass index [BMI] 39.0-39.9, adult; E11.22 Type 2 diabetes mellitus with diabetic chronic kidney disease; F17.220 Nicotine dependence, chewing tobacco, uncomplicated; Z79.899 Other long term (current) drug therapy; G93.41 Metabolic encephalopathy; E66.3 Overweight; N40.0 Benign prostatic hyperplasia without lower urinary tract symptoms; I50.32 Chronic diastolic (congestive) heart failure; F02.80 Dementia in other diseases classified elsewhere, unspecified severity, without behavioral disturbance, psychotic disturbance, mood disturbance, and anxiety; Z87.440 Personal history of urinary (tract) infections; Z95.1 Presence of aortocoronary bypass graft; Z51.81 Encounter for therapeutic drug level monitoring; I25.10 Atherosclerotic heart disease of native coronary artery without angina pectoris; Z79.4 Long term (current) use of insulin; E11.649 Type 2 diabetes mellitus with hypoglycemia without coma; Z82.49 Family history of ischemic heart disease and other diseases of the circulatory system; G30.9 Alzheimer's disease, unspecified; J44.9 Chronic obstructive pulmonary disease, unspecified; E11.42 Type 2 diabetes mellitus with diabetic polyneuropathy; Z91.041 Radiographic dye allergy status; Z86.718 Personal history of other venous thrombosis and embolism; I35.0 Nonrheumatic aortic (valve) stenosis; F32.9 Major depressive disorder, single episode, unspecified; N18.3 Chronic kidney disease, stage 3 (moderate); Z79.82 Long term (current) use of aspirin; I48.91 Unspecified atrial fibrillation; Z86.73 Personal history of transient ischemic attack (TIA), and cerebral infarction without residual deficits; G31.9 Degenerative disease of nervous system, unspecified; I67.2 Cerebral atherosclerosis; Z88.5 Allergy status to narcotic agent

== ENCOUNTER 2019-02-08 20:57 | Inpatient (IN) ==
[2019-02-08] MEDS ORDERED: ALBUT/IPRATROP 3MG/0.5MG NEB 3 ML VIAL INH STA (21:07)
[2019-02-08] MEDS: MAGNESIUM SULFATE / D5W 1 GM/100 ML BAG IV SCH ×2 (21:20→22:25)
--- NOTE | 2019-02-08 21:20 | XRay Report ---
XR chest 1V portable CLINICAL HISTORY: Dyspnea COMPARISON STUDY: 10/17/2018 FINDINGS: There are postsurgical changes of midline sternotomy. The heart remains enlarged. There is a right sided A-Port catheter. There is radiographic evidence of mild congestive failure/fluid overlo ad. There is a small right pleural effusion. There is no lobar consolidation.[ IMPRESSION: Cardiomegaly and radiographic evidence of congestive failure/fluid overload. Small right pleural effusion. Right basilar opacities statistically atelectatic. Electronically signed by: Nagi Springer M.D. 02/08/2019 9:19 PM
[2019-02-08] MEDS ORDERED: FUROSEMIDE 40 MG/4 ML VIAL IV STA (21:26)
[2019-02-08 21:29] LABS: Basophils # (auto) 0.02 K/uL (0-0.2); Basophils % (auto) 0.2 %; Eosinophils # (auto) 0.18 K/uL (0-0.5); Eosinophils % (auto) 1.9 %; Hematocrit (blood only) 39.6 % (42-52); Hemoglobin 13.2 g/dL (14.0-18.0); Immature Granulocytes # (auto) 0.02 K/uL (0.00-0.02); Immature Granulocytes % (auto) 0.2 %; Lymphocytes # (auto) 1.48 K/uL (1.2-3.4); Mean Corpuscular Hgb Conc 33.3 g/dL (32-36); Mean Corpuscular Volume 86.8 fL (80-100); Mean Platelet Volume 9.6 fL (7.4-10.4); Monocytes # (auto) 0.66 K/uL (0.11-0.59); Monocytes % (auto) 7.1 %; Neutrophils % (auto) 74.6 %; Platelet Count 190 K/uL (130-400); RDW Coefficient of Variation 15.1 % (11.5-14.5); Red Blood Count 4.56 M/uL (4.7-6.1); White Blood Count 9.26 K/uL (4.8-10.8)
[2019-02-08 21:30] LABS: Base Excess VBG 1.6 mEq/L; Oxygen Saturation VBG 67.5 %; pH VBG 7.43 (7.36-7.41)
[2019-02-08 21:39] LABS: INR 1.4 (0.9-1.1); Partial Thromboplastin Ratio 1.1; Partial Thromboplastin Time 30.8 Seconds (21.0-31.0); Prothrombin Time 13.7 Seconds (9.0-12.0)
[2019-02-08 21:48] LABS: Albumin Level 3.3 gm/dl (3.4-5.0); BUN Creatinine Ratio 18.2 (10-20); Creatinine Clr Calc Pharmacy 55.1 ml/min; Est GFR (African American) 52.7; Est GFR (Non-African American) 45.5; Potassium 4.1 mmol/L (3.5-5.1)
[2019-02-08 21:54] LABS: Albumin Globulin Ratio 0.8 (0.9-2); Bilirubin,Total 0.7 mg/dl (0.2-1); Phosphorus 3.6 mg/dl (2.5-4.9); Total Protein 7.3 gm/dl (6.4-8.2); Troponin I 0.03 ng/ml (0-0.045)
--- NOTE | 2019-02-08 23:17 | Emergency Department Note ---
Entered by Claribel Culp acting as a scribe for Mahesh Bonner MD History of Present Illness General Chief complaint: Shortness of Breath/Dyspnea Stated complaint: SOB Time Seen by Provider: 02/08/19 20:59 Source: patient History of Present Illness Onset (ago): day(s) (several) Location: chest Pain Consistency: + other (worsening) Quality: + other (shortness of breath) Associated symptoms: + chest pain (intermittent), + cough (intermittent dry) and + other (negative abdominal pain; negative pain in calves) The patient is a 78 year old white male w/ PMHx of CKD, Stroke, COPD, Aortic Stenosis, CHF, AR, Diabetes, Afib, and Alzheimers disease who presents to the ED w/ CC of worsening shortness of breath beginning several days prior to arrival. The patient states that he has had intermittent chest pain and dry cough during this time. The patient denies abdominal pain and pain in his calves. The patient states that he smokes medical marijuana. He denies wearing oxygen at home. The patient states that his grandson jumped on his left side several days ago, and he states that he now has left rib pain. Home Medications Home Medications Medication Instructions Recorded Confirmed Type Advair HFA 2 puff INHALATION Q12H 10/17/18 02/08/19 History Combivent Respimat 1 puff INHALATION QID 10/17/18 02/08/19 History Novolog Flexpen U-100 Insulin 0 unit SUBCUT TID 10/17/18 02/08/19 History Tresiba FlexTouch U-100 15 unit SUBCUT HS 10/17/18 02/08/19 History aspirin [Aspir-81] 81 mg PO DAILY 10/17/18 02/08/19 History atorvastatin 40 mg PO HS 10/17/18 02/08/19 History finasteride 5 mg PO DAILY 10/17/18 02/08/19 History furosemide 40 mg PO DAILY 10/17/18 02/08/19 History ipratropium-albuterol 3 ml INHALATION Q4H PRN 10/17/18 02/08/19 History isosorbide mononitrate 60 mg PO DAILY 10/17/18 02/08/19 History memantine 10 mg PO BID 10/17/18 02/08/19 History metoprolol tartrate 25 mg PO BID 10/17/18 02/08/19 History nitrofurantoin macrocrystal 50 mg PO HS 10/17/18 02/08/19 History nitroglycerin 1 patch TRANSDERMAL QPM 10/17/18 02/08/19 History nitroglycerin 1 spray SUBLINGUAL Q5M PRN 10/17/18 02/08/19 History ranitidine HCl 300 mg PO HS 10/17/18 02/08/19 History sertraline 100 mg PO DAILY 10/17/18 02/08/19 History tamsulosin 0.4 mg PO DAILY 10/17/18 02/08/19 History thiamine HCl (vitamin B1) 100 mg PO DAILY 10/17/18 02/08/19 History warfarin 7.5 mg PO 3XWK 10/17/18 02/08/19 History warfarin 10 mg PO 4XWK 10/17/18 02/08/19 History cholecalciferol (vitamin D3) 5,000 unit PO DAILY 02/08/19 02/08/19 History [Vitamin D3] Allergies Allergy/AdvReac Type Severity Reaction Status Date / Time codeine AdvReac Intermediate EMESIS Verified 02/08/19 21:37 Iodinated Contrast- Oral and AdvReac Mild NAUSEA Verified 02/08/19 21:37 IV Dye Past Med/Surg History Medical History COPD (chronic obstructive pulmonary disease) (Chronic) Asthma (Chronic) CHF (congestive heart failure) (Chronic) Anxiety (Chronic) Depression (Chronic) Mild sleep apnea (Chronic) DM (diabetes mellitus) (Chronic) Peripheral neuropathy (Chronic) CAD (coronary artery disease) (Chronic 05/09/14) CHF (congestive heart failure) (Chronic) Atrial fibrillation (Chronic) Alzheimers disease (Chronic) Surgical History Hx of CABG (Resolved) H/O hemicolectomy (Resolved) Family History Mother Hypertension Social History Preferred Language: Estonian Communication Ability: Effective Beliefs That Will Affect Care: Quaker Quaker Beliefs: hinduism Current Living Situation: Spouse Feels Safe at Home: Yes Smoking Status: Current every day smoker Tobacco Type: smokeless tobacco Hx Alcohol Use: Yes Alcohol type: hard liquor Hx Substance Use: Yes Substance Use Type Other:: medical marijuana Review of Systems See HPI for pertinent positives & negatives. and A total of 10 systems reviewed and were otherwise negative Physical Exam Vital Signs Vital Signs - 24 hr 02/08/19 21:11 02/08/19 21:13 02/08/19 21:31 Temperature 36.7 C Temperature Source Oral Sepsis Recent Fever Within 48 Hours No Sepsis New/Unexplained Change in Mental Status No Sepsis Action Taken by Nursing No Action Required Pulse Rate 93 H 83 Pulse Rate from SpO2 Sensor 78 Respiratory Rate 21 25 H Respiratory Effort / Characteristics Accessory Muscle Use Short of Breath SOB on Exertion Respiratory Depth Normal Respiratory Pattern Tachypnea Blood Pressure 151/96 H 169/100 H Blood Pressure Mean 114 123 Blood Pressure Position Sitting Pulse Oximetry 93 96 100 Oxygen Delivery Method Room Air Room Air Nebulizer Oxygen Flow Rate 8 02/08/19 21:32 02/08/19 22:00 02/08/19 22:01 Temperature Temperature Source Sepsis Recent Fever Within 48 Hours Sepsis New/Unexplained Change in Mental Status Sepsis Action Taken by Nursing Pulse Rate 80 85 80 Pulse Rate from SpO2 Sensor 79 83 81 Respiratory Rate 29 H 20 20 Respiratory Effort / Characteristics Respiratory Depth Respiratory Pattern Blood Pressure 172/116 H Blood Pressure Mean 134 Blood Pressure Position Pulse Oximetry 100 98 96 Oxygen Delivery Method Room Air Room Air Oxygen Flow Rate 02/08/19 22:02 02/08/19 22:30 02/08/19 22:42 Temperature Temperature Source Sepsis Recent Fever Within 48 Hours Sepsis New/Unexplained Change in Mental Status Sepsis Action Taken by Nursing Pulse Rate 78 81 97 H Pulse Rate from SpO2 Sensor 84 84 99 H Respiratory Rate 21 34 H Respiratory Effort / Characteristics Respiratory Depth Respiratory Pattern Blood Pressure 170/92 H Blood Pressure Mean 118 Blood Pressure Position Pulse Oximetry 92 95 99 Oxygen Delivery Method Room Air Oxygen Flow Rate GENERAL: Mildly ill in appearance. Tachypneic. EYE EXAM: Normal conjunctiva. PERRL, no anisocoria and EOM's grossly intact w/o pain. OROPHARYNX: Moist mucus membranes. Grossly normal dentition. NECK: Supple, no nuchal rigidity, no adenopathy, non-tender. no signs of meningismus. LUNGS: Decreased breath sounds at the bilateral bases. Scant wheezes. Tachypnea noted. HEART: Irregularly irregular rhythm. Systolic injection murmur noted at upper sternal border. ABDOMEN: Abdomen soft, non-tender, normo-active bowel sounds, no masses, no r ebound or guarding. BACK: No CVA TTP. SKIN: No rashes and no bruising. UPPER EXTREMITIES: Upper extremities are grossly normal. LOWER EXTREMITIES: No calf pain. 1+ bilateral lower extremity edema. Negative Homans sign. NEURO EXAM: A&O x3, cranial nerves II-XII grossly intact, normal speech, moves a ll 4 extremities on command w/o issue. Course 2102: The patient was evaluated in room B3B, and a complete history and physical examination were performed. 2223: [facility] for further evaluation. Consultations Consultation #1: I discussed the [facility] for further evaluation. Time: 22:23 Administered Medications Magnesium Sulfate/Dextrose (Magnesium Sulfate / D5w) 1 gm in 100 mls @ 100 mls/hr IV Q1H LIZ Stop: 02/08/19 23:14 Last Admin: 02/08/19 22:25 Dose: 100 mls/hr Documented by: [id number] Infusion: 02/08/19 22:25 Dose: 0 mls/hr Documented by: [id number] Admin: 02/08/19 21:20 Dose: 100 mls/hr Documented by: [id number] Discontinued Medications Albuterol (Duoneb) 6 ml INH NOW STA Stop: 02/08/19 21:08 Last Admin: 02/08/19 21:19 Dose: 6 ml Documented by: [id number] Furosemide (Lasix) 40 mg IV NOW STA Stop: 02/08/19 21:27 Last Admin: 02/08/19 21:37 Dose: 40 mg Documented by: [id number] Medical Decision Making Medical Records Attestation: I reviewed the patient's medical records. Home Medications Current Medication List: was personally reviewed by me Laboratory Data Attestation: I reviewed the patient's lab results. Result diagrams: 02/08/19 21:20 02/08/19 21:17 Lab Results 02/08/19 02/08/19 02/08/19 Range/Units 21:17 21:17 21:20 WBC 9.26 (4.8-10.8) K/uL RBC 4.56 L (4.7-6.1) M/uL Hgb 13.2 L (14.0-18.0) g/dL Hct 39.6 L (42-52) % MCV 86.8 (80-100) fL MCH 28.9 (25-34) pg MCHC 33.3 (32-36) g/dL RDW Std Deviation 48.0 H (36.4-46.3) fL RDW Coeff of Marie 15.1 H (11.5-14.5) % Plt Count 190 (130-400) K/uL MPV 9.6 (7.4-10.4) fL Immature Gran % (Auto) 0.2 % Neut % (Auto) 74.6 % Lymph % (Auto) 16.0 % Traverse % (Auto) 7.1 % Eos % (Auto) 1.9 % Baso % (Auto) 0.2 % Immature Gran # (Auto) 0.02 (0.00-0.02) K/uL Neut # (Auto) 6.90 H (1.4-6.5) K/uL Lymph # (Auto) 1.48 (1.2-3.4) K/uL Traverse # (Auto) 0.66 H (0.11-0.59) K/uL Eos # (Auto) 0.18 (0-0.5) K/uL Baso # (Auto) 0.02 (0-0.2) K/uL PT 13.7 H (9.0-12.0) Seconds INR 1.4 H (0.9-1.1) APTT 30.8 (21.0-31.0) Seconds PTT Ratio 1.1 VBG pH (7.36-7.41) VBG pCO2 (38-50) mmHg VBG pO2 mmHg VBG HCO3 mmol/L VBG O2 Saturation % VBG Base Excess mEq/L Barometric Pressure mm/Hg Sodium 140 (136-145) mmol/L Potassium 4.1 (3.5-5.1) mmol/L Chloride 106 (98-107) mmol/L Carbon Dioxide 26 (21-32) mmol/L Anion Gap 9.0 (3-11) BUN 26 H (7-18) mg/dl Creatinine 1.45 H (0.6-1.4) mg/dl Est Cr Clr Drug Dosing 55.1 ml/min Est GFR ( Amer) 52.7 Est GFR (Non-Af Amer) 45.5 BUN/Creatinine Ratio 18.2 (10-20) Glucose 112 H (70-99) mg/dl Calcium 9.0 (8.5-10.1) mg/dl Phosphorus 3.6 (2.5-4.9) mg/dl Magnesium 2.0 (1.8-2.4) mg/dl Total Bilirubin 0.7 (0.2-1) mg/dl AST 21 (15-37) U/L ALT 23 (12-78) U/L Alkaline Phosphatase 95 (45-117) U/L Troponin I 0.030 (0-0.045) ng/ml NT-Pro-B Natriuret Pep 8170 H (0-1800) pg/ml Total Protein 7.3 (6.4-8.2) gm/dl Albumin 3.3 L (3.4-5.0) gm/dl Globulin 4.0 (2.5-4.0) gm/dl Albumin/Globulin Ratio 0.8 L (0.9-2) 05/30/19 Range/Units 21:20 WBC (4.8-10.8) K/uL RBC (4.7-6.1) M/uL Hgb (14.0-18.0) g/dL Hct (42-52) % MCV (80-100) fL MCH (25-34) pg MCHC (32-36) g/dL RDW Std Deviation (36.4-46.3) fL RDW Coeff of Marie (11.5-14.5) % Plt Count (130-400) K/uL MPV (7.4-10.4) fL Immature Gran % (Auto) % Neut % (Auto) % Lymph % (Auto) % Traverse % (Auto) % Eos % (Auto) % Baso % (Auto) % Immature Gran # (Auto) (0.00-0.02) K/uL Neut # (Auto) (1.4-6.5) K/uL Lymph # (Auto) (1.2-3.4) K/uL Traverse # (Auto) (0.11-0.59) K/uL Eos # (Auto) (0-0.5) K/uL Baso # (Auto) (0-0.2) K/uL PT (9.0-12.0) Seconds INR (0.9-1.1) APTT (21.0-31.0) Seconds PTT Ratio VBG pH 7.43 H (7.36-7.41) VBG pCO2 40 (38-50) mmHg VBG pO2 36 mmHg VBG HCO3 26 mmol/L VBG O2 Saturation 67.5 % VBG Base Excess 1.6 mEq/L Barometric Pressure 725.2 mm/Hg Sodium (136-145) mmol/L Potassium (3.5-5.1) mmol/L Chloride (98-107) mmol/L Carbon Dioxide (21-32) mmol/L Anion Gap (3-11) BUN (7-18) mg/dl Creatinine (0.6-1.4) mg/dl Est Cr Clr Drug Dosing ml/min Est GFR ( Amer) Est GFR (Non-Af Amer) BUN/Creatinine Ratio (10-20) Glucose (70-99) mg/dl Calcium (8.5-10.1) mg/dl Phosphorus (2.5-4.9) mg/dl Magnesium (1.8-2.4) mg/dl Total Bilirubin (0.2-1) mg/dl AST (15-37) U/L ALT (12-78) U/L Alkaline Phosphatase (45-117) U/L Troponin I (0-0.045) ng/ml NT-Pro-B Natriuret Pep (0-1800) pg/ml Total Protein (6.4-8.2) gm/dl Albumin (3.4-5.0) gm/dl Globulin (2.5-4.0) gm/dl Albumin/Globulin Ratio (0.9-2) Imaging Data Radiologist's Impression: Radiology results as stated below per my review and the radiologist's interpretation: XR chest 1V portable CLINICAL HISTORY: Dyspnea COMPARISON STUDY: 10/17/2018 FINDINGS: There are postsurgical changes of midline sternotomy. The heart remains enlarged. There is a right sided A-Port catheter. There is radiographic evidence of mild congestive failure/fluid overload. There is a small right pleural effusion. There is no lobar consolidation.[ IMPRESSION: Cardiomegaly and radiographic evidence of congestive failure/fluid overload. Small right pleural effusion. Right basilar opacities statistically atelectatic. Electronically signed by: Nagi Springer M.D. 02/08/2019 9:19 PM ECG Data Attestation: I personally reviewed and interpreted this ECG as follows: Indication: SOB/dyspnea Rate (beats per minute): 93 Rhythm: atrial fibrillation Findings: + other (wide QRS), + PVC, + Q waves (lead III), + RBBB and + T-wave inversion (lead III) Comparison ECG Date: from (10/17/2018) Change: the following changes noted (branch block is new; Q wave and TWI are old) Blood Pressure Blood Pressure Findings: Elevated blood pressure Blood Pressure Disposition: further management by hospitalist JERMAINE Sanders The patient is a 78 year old white male w/ PMHx of CKD, Stroke, COPD, Aortic Stenosis, CHF, AR, Diabetes, Afib, and Alzheimers disease who presents to the ED w/ CC of worsening shortness of breath beginning several days prior to arrival. Differential diagnosis: Etiologies such as infections, reactive airway disease, pneumonia, pneumothorax, COPD, CHF, cardiac ischemia, pulmonary embolism, musculoskeletal, gastrointestinal, as well as others were entertained. Patient was seen and evaluated the bedside. The patient was have sick some worsening shortness of breath which has been chronic but acutely worse over the last several days. Patient is unsure as to whether or not he is taking his home meds. Last time he was seen back in October he was subtherapeutic with his INR take Coumadin given his history of A. fib and concern for stroke risk. Patient apparently had been found and had hypoxia on room air in the 70s. The patient does not use any supplemental oxygen at home or BiPAP or CPAP. Patient does have some blunted breath sounds at the bases but does have some scant wheezes throughout. The patient does have 1+ pretibial edema. Patient does have an audible systolic murmur. Patient did have blood work completed with a normal white count. Patient has a virtually normal hemoglobin. Patient's blood gas shows a relatively normal pH with no PCO2 retention. The patient does have some baseline CKD. Mag is normal. The patient did receive 2 DuoNeb since magnesium. Solu-Medrol was held until BNP and chest x-ray can be obtained. Patient's chest x-ray shows volume overload the patient's BNP is elevated. The patient was given Lasix 40 IV. I did speak with the patient the patient's feeling over the bedside. Patient was there is subtherapeutic with his INR. I did speak the on-call hospitalist agreed to further evaluate treat the patient. Patient was subsequently admitted to the medicine service. Impression & Plan CHF exacerbation, Respiratory failure with hypoxia Discharge Plan Visit Data Chief Complaint: Shortness of Breath/Dyspnea Stated Complaint: SOB ED Provider: Mahesh Bonner Discharge Problem: CHF exacerbation, Respiratory failure with hypoxia Patient Disposition: Being Evaluated by Hospitalist Forms Stand Alone Forms: My [facility] Prescriptions Prescriptions: No Action furosemide 40 mg Tablet 40 mg PO DAILY RF: 0 atorvastatin 40 mg Tablet 40 mg PO HS RF: 0 nitrofurantoin macrocrystal 50 mg Capsule 50 mg PO HS RF: 0 ipratropium-albuterol 0.5 mg-3 mg(2.5 mg base)/3 mL Solution For Nebulization 3 ml INHALATION Q4H PRN (Reason: Shortness Of Breath) RF: 0 ranitidine HCl 300 mg Tablet 300 mg PO HS RF: 0 nitroglycerin 0.2 mg/hr Patch 24 Hour 1 patch TRANSDERMAL QPM RF: 0 sertraline 100 mg Tablet 100 mg PO DAILY RF: 0 thiamine HCl (vitamin B1) 100 mg Tablet 100 mg PO DAILY RF: 0 aspirin [Aspir-81] 81 mg Tablet,Delayed Release (Dr/Ec) 81 mg PO DAILY RF: 0 isosorbide mononitrate 60 mg Tablet Extended Release 24 Hr 60 mg PO DAILY RF: 0 tamsulosin 0.4 mg Capsule 0.4 mg PO DAILY RF: 0 warfarin 5 mg Tablet 10 mg PO 4XWK RF: 0 warfarin 5 mg Tablet 7.5 mg PO 3XWK RF: 0 nitroglycerin 400 mcg/spray [place],Non-Aerosol 1 spray Sublingual Q5M PRN (Reason: Chest Pain) RF: 0 finasteride 5 mg Tablet 5 mg PO DAILY RF: 0 Novolog Flexpen U-100 Insulin 100 unit/mL Insulin Pen SUBCUT TID RF: 0 memantine 10 mg Tablet 10 mg PO BID RF: 0 metoprolol tartrate 25 mg Tablet 25 mg PO BID RF: 0 Advair HFA 115-21 mcg/actuation Hfa Aerosol Inhaler 2 puff INHALATION Q12H RF: 0 Tresiba FlexTouch U-100 100 unit/mL (3 mL) Insulin Pen 15 unit SUBCUT HS RF: 0 Combivent Respimat 20-100 mcg/actuation Mist 1 puff INHALATION QID RF: 0 cholecalciferol (vitamin D3) [Vitamin D3] 5,000 unit Tablet 5,000 unit PO DAILY RF: 0 Referrals Referrals: Deidra Correa MD [Primary Care Provider] - Discharge Problem: CHF exacerbation Qualifiers: Heart failure type: unspecified Qualified Code(s): I50.9 - Heart failure, unspecified Respiratory failure with hypoxia Qualifiers: Chronicity: acute Qualified Code(s): J96.01 - Acute respiratory failure with hypoxia The scribe's documentation has been prepared under my direction and personally reviewed by me in its entirety. I confirm that the note above accurately reflects all work, treatment, procedures, and medical decision making performed by me.
--- NOTE | 2019-02-08 23:53 | History & Physical Report ---
Date of Service February 08, 2019 Assessment & Plan (1) Respiratory failure with hypoxia: Acute respiratory failure with hypoxia/secondary primarily to CHF exacerbation- The patient will be admitted to telemetry for serial cardiac enzymes, serial EKG's, cardiac rhythm monitoring and a 2-D echocardiogram with Dopplers. Present on Admission?: Yes (2) CHF exacerbation: CHF exacerbation/severe aortic stenosis/CAD/atrial fibrillation- Given Lasix 40 mg IV in the ED. Change Lasix from 40 mg p.o. daily to 40 mg IV every morning. Monitor preload to not decrease excessively due to severe aortic stenosis. Continue aspirin 81 mg daily, isosorbide mononitrate 60 mg daily, metoprolol tartrate 25 mg p.o. twice daily, nitroglycerin transdermal patch every afternoon and warfarin daily. INR is subtherapeutic at 1.4. We will therefore give Lovenox subcu for bridging dose until INR greater than or equal to 2. Present on Admission?: Yes (3) Severe aortic stenosis: As above. Present on Admission?: Yes (4) CKD (chronic kidney disease) stage 3, GFR 30-59 ml/min: Creatinine on admission is 1.45, with a range 1.36-1.8. Follow labs serially. Present on Admission?: Yes (5) Lethargy: Presumed secondary to CHF and hypoxia No source of infection seen. Follow response to treatment. Present on Admission?: Yes (6) CAD (coronary artery disease): See above Present on Admission?: Yes (7) COPD (chronic obstructive pulmonary disease): Continue Advair HFA, Combivent and as needed Duonebs. Present on Admission?: Yes (8) DM (diabetes mellitus): On Tresiba 15 units subcu at bedtime as outpatient. Hold long-acting insulin for now until confirmed appetite has returned. Placed on Accu-Cheks before meals and at bedtime with NovoLog coverage per scale. Present on Admission?: Yes (9) Anxiety: SDAT/anxiety/depression- Continue memantine and sertraline. Present on Admission?: Yes (10) Depression: See above Present on Admission?: Yes (11) Alzheimers disease: See above Present on Admission?: Yes (12) Atrial fibrillation: See above. Present on Admission?: Yes (13) GERD (gastroesophageal reflux disease): Continue ranitidine at bedtime. Present on Admission?: Yes (14) BPH loc w urin obs/LUTS: Continue tamsulosin. Hold nitrofurantoin for now Present on Admission?: Yes History of Present Illness Chief Complaint: The patient presents to the emergency department with worsening shortness of breath and dyspnea on exertion over the past several days. Primary Care Provider: Deidra Correa MD The patient is a 78-year-old male with a past medical history including COPD, aortic stenosis, CHF, CAD, history of OH, atrial fibrillation, stroke, CKD and SDAT who presents to the emergency department with several days of worsening shortness of breath, dyspnea on exertion, intermittent chest discomfort and coug h that is primarily dry, but occasionally coughs up a gob of mucus. He has not had any recent travels or sick exposures that he is aware of. Allergies Allergy/AdvReac Type Severity Reaction Status Date / Time codeine AdvReac Intermediate EMESIS Verified 02/08/19 21:37 Iodinated Contrast- Oral and AdvReac Mild NAUSEA Verified 02/08/19 21:37 IV Dye Home Medications Home Medications Medication Instructions Recorded Confirmed Type Advair HFA 2 puff INHALATION Q12H 10/17/18 02/08/19 History Combivent Respimat 1 puff INHALATION QID 10/17/18 02/08/19 History Novolog Flexpen U-100 Insulin 0 unit SUBCUT TID 10/17/18 02/08/19 History Tresiba FlexTouch U-100 15 unit SUBCUT HS 10/17/18 02/08/19 History aspirin [Aspir-81] 81 mg PO DAILY 10/17/18 02/08/19 History atorvastatin 40 mg PO HS 10/17/18 02/08/19 History finasteride 5 mg PO DAILY 10/17/18 02/08/19 History furosemide 40 mg PO DAILY 10/17/18 02/08/19 History ipratropium-albuterol 3 ml INHALATION Q4H PRN 10/17/18 02/08/19 History isosorbide mononitrate 60 mg PO DAILY 10/17/18 02/08/19 History memantine 10 mg PO BID 10/17/18 02/08/19 History metoprolol tartrate 25 mg PO BID 10/17/18 02/08/19 History nitrofurantoin macrocrystal 50 mg PO HS 10/17/18 02/08/19 History nitroglycerin 1 patch TRANSDERMAL QPM 10/17/18 02/08/19 History nitroglycerin 1 spray SUBLINGUAL Q5M PRN 10/17/18 02/08/19 History ranitidine HCl 300 mg PO HS 10/17/18 02/08/19 History sertraline 100 mg PO DAILY 10/17/18 02/08/19 History tamsulosin 0.4 mg PO DAILY 10/17/18 02/08/19 History thiamine HCl (vitamin B1) 100 mg PO DAILY 10/17/18 02/08/19 History warfarin 7.5 mg PO 3XWK 10/17/18 02/08/19 History warfarin 10 mg PO 4XWK 10/17/18 02/08/19 History cholecalciferol (vitamin D3) 5,000 unit PO DAILY 02/08/19 02/08/19 History [Vitamin D3] Past Med/Surg History Medical History COPD (chronic obstructive pulmonary disease) (Chronic) Asthma (Chronic) CHF (congestive heart failure) (Chronic) Anxiety (Chronic) Depression (Chronic) Mild sleep apnea (Chronic) DM (diabetes mellitus) (Chronic) Peripheral neuropathy (Chronic) CAD (coronary artery disease) (Chronic 05/09/14) CHF (congestive heart failure) (Chronic) Atrial fibrillation (Chronic) Alzheimers disease (Chronic) Surgical History Hx of CABG (Resolved) H/O hemicolectomy (Resolved) Family History Mother Hypertension Social History Preferred Language: Turkish Communication Ability: Effective Beliefs That Will Affect Care: Church Church Beliefs: bahai Current Living Situation: Spouse Feels Safe at Home: Yes Smoking Status: Current every day smoker Tobacco Type: smokeless tobacco Hx Alcohol Use: Yes Alcohol type: hard liquor Hx Substance Use: Yes Substance Use Type Other:: medical marijuana Review of Systems Review of Systems: The patient denies palpitations, lower extremity swelling, sore throat, fevers, chills, sweats, nausea, vomiting, diarrhea , constipation, abdominal pain, pelvic pain, blood in urine or stool, dysuria, urinary frequency or urgency, lightheadedness, dizziness, headache, loss of consciousness, rash, abnormal bruising or bleeding, imbalance, focal or generalized weakness, numbness or tingling in arms or legs, generalized arthralgias or myalgias, back or neck pain, or night sweats. The review of systems is otherwise negative other than for that already noted above, and at least 10 systems have been reviewed. Physical Exam Physical Exam: The patient is awake, alert and oriented 3, well developed and well nourished, normocephalic and atraumatic, lying in bed and in no acute distress. HEENT--PERRL, EOMI, mucous membranes and oropharynx dry. Neck--supple. No JVD. No bruits. Thyroid normal, trachea midline, no adenopathy. Heart--normal S1 and S2. No murmurs, rubs or gallops. Lungs--crackles at the bases bilaterally, no respiratory distress, no accessory muscle use. Abdomen--normal bowel sounds and soft. Nontender. Nondistended. Obese Extremities--no cyanosis or clubbing. 1+ bilateral pretibial pitting edema. There are good distal pulses b/l. Dermatologic--normal skin turgor, normal color, no abnormal lymph nodes, no dangelo h. Neurologic--cranial nerves II through XII grossly intact. Rheumatologic--normal range of motion. Psychiatric--normal affect. Results & Data Vital Signs (Past 12 Hours) Vital Signs Temp Pulse Pulse Resp BP BP Pulse Ox 02/08/19 23:01 79 18 133/80 02/08/19 22:42 97 H 34 H 170/92 H 99 02/08/19 22:30 81 95 02/08/19 22:02 78 21 92 02/08/19 22:01 80 20 172/116 H 96 02/08/19 22:00 85 20 98 02/08/19 21:32 80 29 H 100 02/08/19 21:31 83 25 H 169/100 H 100 02/08/19 21:13 98.1 F 93 H 21 151/96 H 96 02/08/19 21:11 93 Laboratory Results Laboratory Results WBC 9.26 K/uL (4.8-10.8) 02/08/19 21:20 RBC 4.56 M/uL (4.7-6.1) L 02/08/19 21:20 Hgb 13.2 g/dL (14.0-18.0) L 02/08/19 21:20 Hct 39.6 % (42-52) L 02/08/19 21:20 MCV 86.8 fL (80-100) 02/08/19 21:20 MCH 28.9 pg (25-34) 02/08/19 21:20 MCHC 33.3 g/dL (32-36) 02/08/19 21:20 RDW Std Deviation 48.0 fL (36.4-46.3) H 02/08/19 21:20 RDW Coeff of Marie 15.1 % (11.5-14.5) H 02/08/19 21:20 Plt Count 190 K/uL (130-400) 02/08/19 21:20 MPV 9.6 fL (7.4-10.4) 02/08/19 21:20 Immature Gran % (Auto) 0.2 % 02/08/19 21:20 Neut % (Auto) 74.6 % 02/08/19 21:20 Lymph % (Auto) 16.0 % 02/08/19 21:20 Lyman % (Auto) 7.1 % 02/08/19 21:20 Eos % (Auto) 1.9 % 02/08/19 21:20 Baso % (Auto) 0.2 % 02/08/19 21:20 Immature Gran # (Auto) 0.02 K/uL (0.00-0.02) 02/08/19 21:20 Neut # (Auto) 6.90 K/uL (1.4-6.5) H 02/08/19 21:20 Lymph # (Auto) 1.48 K/uL (1.2-3.4) 02/08/19 21:20 Lyman # (Auto) 0.66 K/uL (0.11-0.59) H 02/08/19 21:20 Eos # (Auto) 0.18 K/uL (0-0.5) 02/08/19 21:20 Baso # (Auto) 0.02 K/uL (0-0.2) 02/08/19 21:20 PT 13.7 Seconds (9.0-12.0) H 02/08/19 21:17 INR 1.4 (0.9-1.1) H 02/08/19 21:17 APTT 30.8 Seconds (21.0-31.0) 02/08/19 21:17 PTT Ratio 1.1 02/08/19 21:17 VBG pH 7.43 (7.36-7.41) H 02/08/19 21:20 VBG pCO2 40 mmHg (38-50) 02/08/19 21:20 VBG pO2 36 mmHg 02/08/19 21:20 VBG HCO3 26 mmol/L 02/08/19 21:20 VBG O2 Saturation 67.5 % 02/08/19 21:20 VBG Base Excess 1.6 mEq/L 02/08/19 21:20 Barometric Pressure 725.2 mm/Hg 02/08/19 21:20 Sodium 140 mmol/L (136-145) 02/08/19 21:17 Potassium 4.1 mmol/L (3.5-5.1) 02/08/19 21:17 Chloride 106 mmol/L (98-107) 02/08/19 21:17 Carbon Dioxide 26 mmol/L (21-32) 02/08/19 21:17 9.0 (3-11) 02/08/19 21:17 BUN 26 mg/dl (7-18) H 02/08/19 21:17 1.45 mg/dl (0.6-1.4) H 02/08/19 21:17 Est Cr Clr Drug Dosing 55.1 ml/min 02/08/19 21:17 Est GFR ( Amer) 52.7 02/08/19 21:17 Est GFR (Non-Af Amer) 45.5 02/08/19 21:17 18.2 (10-20) 02/08/19 21:17 Glucose 112 mg/dl (70-99) H 02/08/19 21:17 Calcium 9.0 mg/dl (8.5-10.1) 02/08/19 21:17 Phosphorus 3.6 mg/dl (2.5-4.9) 02/08/19 21:17 Magnesium 2.0 mg/dl (1.8-2.4) 02/08/19 21:17 0.7 mg/dl (0.2-1) 02/08/19 21:17 AST 21 U/L (15-37) 02/08/19 21:17 ALT 23 U/L (12-78) 02/08/19 21:17 95 U/L (45-117) 02/08/19 21:17 0.030 ng/ml (0-0.045) 02/08/19 21:17 NT-Pro-B Natriuret Pep 8170 pg/ml (0-1800) H 02/08/19 21:17 7.3 gm/dl (6.4-8.2) 02/08/19 21:17 3.3 gm/dl (3.4-5.0) L 02/08/19 21:17 4.0 gm/dl (2.5-4.0) 02/08/19 21:17 0.8 (0.9-2) L 02/08/19 21:17 Diagnostic Findings [place], [place] [phone] XRay Report Patient: JOY BERNAL EAdmit Date: 02/08/19 MR#: [id number]: [id number] Acct ID:[id number]: Date: 1940[facility] Zip: [place] [address] Age: 78Location: ED Sex: M Room/Bed: Att Phy: Diagnosis: SOB Danna Phy: Deidra Correa MDService Date: 02/08/19 Fam Phy: Interpreting Phy: Nagi Springer MD Admit Phy: Ordering Phy: Mahesh Bonner M.D. cc: ~ XR chest 1V portable CLINICAL HISTORY: Dyspnea COMPARISON STUDY: 10/17/2018 FINDINGS: There are postsurgical changes of midline sternotomy. The heart remains enlarged. There is a right sided A-Port catheter. There is radiographic evidence of mild congestive failure/fluid overload. There is a small right pleural effusion. There is no lobar consolidation.[ IMPRESSION: Cardiomegaly and radiographic evidence of congestive failure/fluid overload. Small right pleural effusion. Right basilar opacities statistically atelectatic. Electronically signed by: Nagi Springer M.D. 02/08/2019 9:19 PM Dictated: 02/08/192117 Transcribed: 02/08/192117 Code Status & VTE Plan Code Status Full code VTE Prophylaxis Plan VTE Prophylaxis will be ordered: Yes (1) CHF exacerbation Heart failure type: unspecified Qualified Code(s): I50.9 - Heart failure, unspecified (2) Respiratory failure with hypoxia Chronicity: acute Qualified Code(s): J96.01 - Acute respiratory failure with hypoxia
[2019-02-09] MEDS ORDERED: NITROGLYCERIN SL SPR 4.9 GM BTL SL PRN (00:53)
[2019-02-09] MEDS ORDERED: MAGNESIUM HYDROXIDE SUSP 30 ML UDC PO PRN (00:53)
[2019-02-09] MEDS ORDERED: DEXTROSE 50% 50 ML SYRINGE IV PRN (00:53)
[2019-02-09] MEDS ORDERED: ACETAMINOPHEN 325 MG TAB PO PRN (00:53)
[2019-02-09] MEDS ORDERED: ALBUT/IPRATROP 3MG/0.5MG NEB 3 ML VIAL INH PRN (00:53)
[2019-02-09] MEDS ORDERED: GLUCOSE 10 TABS/TUBE PO PRN (00:53)
[2019-02-09] MEDS ORDERED: ONDANSETRON INJ 2 MG/ML 2 ML VIAL IV PRN (00:53)
[2019-02-09] MEDS ORDERED: CARBOHYDRATES FOR HYPOGLYCEMIA PO PRN (00:53)
[2019-02-09] MEDS ORDERED: GLUCAGON FOR INJ 1 MG VIAL SQ PRN (00:53)
[2019-02-09] MEDS ORDERED: GLUCOSE 40% GEL 15 GM TUBE PO PRN (00:53)
[2019-02-09] MEDS ORDERED: ALUMINUM/MAGNESIUM SUSP 30 ML UDC PO PRN (00:53)
[2019-02-09] MEDS ORDERED: ENOXAPARIN INJ 120 MG/0.8 ML SYR SC SCH (01:00)
[2019-02-09] MEDS: WARFARIN SOD 7.5 MG TAB PO SCH (01:37)
[2019-02-09] MEDS: METOPROLOL TARTRATE 25 MG TAB PO SCH ×3 (01:54→20:23)
[2019-02-09] MEDS: MEMANTINE HCL 10 MG TAB PO SCH ×3 (01:55→20:23)
[2019-02-09 04:49] LABS: INR 1.4 (0.9-1.1)
[2019-02-09 04:58] LABS: BUN Creatinine Ratio 18.4 (10-20); Calcium 8.5 mg/dl (8.5-10.1); Creatinine Clr Calc Pharmacy 53.3 ml/min; Magnesium 2.3 mg/dl (1.8-2.4); Potassium 3.8 mmol/L (3.5-5.1)
[2019-02-09 06:33] LABS: Estimated Average Glucose 174 mg/dl; Hemoglobin A1C 7.7 % (4.5-5.6)
[2019-02-09] MEDS: FLUTICASONE/SALMETEROL 250/50 (ADVAIR) 14 PUFF/1 INHALER INH SCH ×2 (08:47→20:23)
[2019-02-09] MEDS: IPRATROPIUM BROMIDE/ALBUTEROL respimat INH INH SCH ×4 (08:48→20:23)
[2019-02-09] MEDS: FUROSEMIDE 40 MG in SYRINGE 0 ML IV SCH (08:49)
[2019-02-09] MEDS: FINASTERIDE 5 MG TAB PO SCH (08:49)
[2019-02-09] MEDS: ISOSORBIDE MONO EXTENDED REL 60 MG TABCR PO SCH (08:49)
[2019-02-09] MEDS: TAMSULOSIN HCL 0.4 MG CAP PO SCH (08:49)
[2019-02-09] MEDS: THIAMINE HCL 100 MG TAB PO SCH (08:50)
[2019-02-09] MEDS: SERTRALINE HCL 100 MG TABLET PO SCH (08:50)
[2019-02-09] MEDS: CHOLECALCIFEROL 1,000 UNITS TAB PO SCH (08:50)
[2019-02-09] MEDS: ASPIRIN 81 MG ECTAB PO SCH (08:50)
[2019-02-09] MEDS: INSULIN ASPART 100 UNITS/ML 3 ML PEN SC SCH ×4 (08:52→20:25)
[2019-02-09] MEDS: ENOXAPARIN INJ 120 MG/0.8 ML SYR SC SCH ×2 (12:37→23:02)
--- NOTE | 2019-02-09 16:02 | Cardiology Consultation ---
Date of Consultation February 09, 2019 Assessment & Plan (1) CHF exacerbation: Suspect that the patient's exacerbation of his combined CHF is related to dietary indiscretion with salt, and medication noncompliance. We have discussed the importance of adhering to a low-salt diet and continuing medications as prescribed. We have also discussed the importance of daily weights and sliding- scale diuretics. (2) CAD (coronary artery disease): The patient had 2 vessel bypass performed back in the early . He had a bare metal stent placed to the SVG to the PDA at the time of inferior PR in December 2010. Is stable on his current medical regimen. (3) Aortic stenosis: Aortic stenosis was felt to be mild to moderate in degree on his echocardiogram in October 2018. There is also evidence of mild aortic insuf ficiency. (4) Permanent atrial fibrillation: Patient's heart rate is adequately controlled. Could consider change from metoprolol tartrate to metoprolol succinate realizing his mild cardiomyopathy. (5) Ischemic cardiomyopathy: Left ventricular ejection fraction was 45-50% on his echocardiogram performed in October. As above, could consider changing metoprolol to the long-acting form realizing his mild cardiomyopathy. History of Present Illness Attending Physician: Greg Greenberg DO History of Present Illness Mr. Townsend is a 78-year-old male who with a complex past medical history who was admitted earlier today in decompensated CHF. Discussed is was ordered to assist in his management. Of note, he typically follows with Dr. Parra in the outpatient setting. The patient was in his usual state of health until 2-3 days prior to presentation. He began to notice increasing exertional dyspnea and lower extremity edema. He admits to noncompliance with a low-salt diet and his medications. The patient does not follow daily weights at home. The patient denies recent angina pectoris. He also denies syncope, presyncope, PND, orthopnea, palpitations, lower extremity edema, and claudication. The patient does carry history of coronary artery disease. He had 2 vessel bypass performed in early . He presented with an acute inferior wall infarction in December 2010 and had a bare metal stent placed to the saphenous vein graft to the PDA. He has done well from a coronary perspective since that time. Currently, patient is resting comfortably in bed without complaints. Past medical and surgical history 1. Coronary artery disease 2. CABG x2-early -PAINTER to the LAD, SVG to the PDA 3. Inferior PR-December 2010-bare metal stent to the PDA graft 4. Hypertension 5. Hypercholesterolemia 6. Permanent atrial fibrillation 7. Moderate to severe aortic stenosis-October 2018 8. Chronic combined CHF 9. Mild ischemic [id number]%-October 2018 10. COPD 11. GERD 12. BPH 13. Dementia 14. Depression 15. BPH 16. Recurrent DVT 17. Vitamin-D deficiency 18. History of colon carcinoma 19. Right hemicolectomy-unknown date Social history and lives with his No tobacco Occasional alcohol Smokes medical marijuana Family history Father in his 50s from an PR Review of systems A 10 point review of systems was undertaken and negative except for that described above. Allergies Allergy/AdvReac Type Severity Reaction Status Date / Time codeine AdvReac Intermediate EMESIS Verified 02/08/19 21:37 Iodinated Contrast- Oral and AdvReac Mild NAUSEA Verified 02/08/19 21:37 IV Dye Home Medications Home Medications Medication Instructions Recorded Confirmed Type Advair HFA 2 puff INHALATION Q12H 10/17/18 02/08/19 History Combivent Respimat 1 puff INHALATION QID 10/17/18 02/08/19 History Novolog Flexpen U-100 Insulin 0 unit SUBCUT TID 10/17/18 02/08/19 History Tresiba FlexTouch U-100 15 unit SUBCUT HS 10/17/18 02/08/19 History aspirin [Aspir-81] 81 mg PO DAILY 10/17/18 02/08/19 History atorvastatin 40 mg PO HS 10/17/18 02/08/19 History finasteride 5 mg PO DAILY 10/17/18 02/08/19 History furosemide 40 mg PO DAILY 10/17/18 02/08/19 History ipratropium-albuterol 3 ml INHALATION Q4H PRN 10/17/18 02/08/19 History isosorbide mononitrate 60 mg PO DAILY 10/17/18 02/08/19 History memantine 10 mg PO BID 10/17/18 02/08/19 History metoprolol tartrate 25 mg PO BID 10/17/18 02/08/19 History nitrofurantoin macrocrystal 50 mg PO HS 10/17/18 02/08/19 History nitroglycerin 1 patch TRANSDERMAL QPM 10/17/18 02/08/19 History nitroglycerin 1 spray SUBLINGUAL Q5M PRN 10/17/18 02/08/19 History ranitidine HCl 300 mg PO HS 10/17/18 02/08/19 History sertraline 100 mg PO DAILY 10/17/18 02/08/19 History tamsulosin 0.4 mg PO DAILY 10/17/18 02/08/19 History thiamine HCl (vitamin B1) 100 mg PO DAILY 10/17/18 02/08/19 History warfarin 7.5 mg PO 3XWK 10/17/18 02/08/19 History warfarin 10 mg PO 4XWK 10/17/18 02/08/19 History cholecalciferol (vitamin D3) 5,000 unit PO DAILY 02/08/19 02/08/19 History [Vitamin D3] Patient History Medical History COPD (chronic obstructive pulmonary disease) (Chronic) Asthma (Chronic) CHF (congestive heart failure) (Chronic) Anxiety (Chronic) Depression (Chronic) Mild sleep apnea (Chronic) DM (diabetes mellitus) (Chronic) Peripheral neuropathy (Chronic) CAD (coronary artery disease) (Chronic 05/09/14) CHF (congestive heart failure) (Chronic) Atrial fibrillation (Chronic) Alzheimers disease (Chronic) Surgical History Hx of CABG (Resolved) H/O hemicolectomy (Resolved) Family History Mother Hypertension Social History Preferred Language: Portuguese Communication Ability: Effective Beliefs That Will Affect Care: Scientology Scientology Beliefs: Prosentant marital status: Current Living Situation: Spouse Other Information That Helps Us Care for You: No Feels Safe at Home: Yes Safety Concerns: Feels Safe At This Time Smoking Status: Current some day smoker Tobacco Type: smokeless tobacco Do You Dip or Chew Tobacco: Yes Hx Alcohol Use: Yes Alcohol type: hard liquor Hx Substance Use: Yes Substance Use Type Other:: medical marijuana Physical Exam Physical Exam: In general this is an obese white male lying supine in bed without complaints. HEENT exam is negative. Neck is supple with delayed and prolonged carotid upstrokes. No obvious transmitted murmur. Jugular venous pressure is difficult to assess. Cardiovascular exam reveals a regular rhythm with a 2/6 crescendo decrescendo systolic murmur heard loudest at the base. S2 is audible at the apex. Lungs note decreased breath sounds at the bases but no rales, rhonchi or wheezes. Abdomen is obese without bruits. Extremities reveal intact radial artery pulses bilaterally. Trace pretibial edema is noted. Results & Data Vital Signs (Past 12 Hours) Vital Signs Temp Pulse Resp BP Pulse Ox 02/09/19 15:35 36.6 C 57 L 18 90/57 L 96 02/09/19 10:44 36.9 C 65 19 111/65 96 02/09/19 07:15 37.0 C 63 19 115/69 99 02/09/19 04:20 36.6 C 50 L 21 129/76 98 Laboratory Results CBC notes a hemoglobin of 13.2, hematocrit 39.6, white count 9.26, platelet count of [id number]. Electrolytes notice sodium of 137, potassium 3.8, chloride 103, bicarb 30, BUN 27, creatinine 1.49, and a glucose of 149. Troponin I level 0.03. BNP is 8170. Diagnostic Findings EKG notes atrial fibrillation with a PVC or apparent beat. There is a complete right bundle-branch block and an old inferior PR pattern. Chest x-ray notes cardiomegaly and CHF (1) CHF exacerbation Heart failure type: unspecified Qualified Code(s): I50.9 - Heart failure, unspecified
[2019-02-09] MEDS: WARFARIN SOD 10 MG TAB PO SCH (17:05)
--- NOTE | 2019-02-09 19:50 | Hospitalist Progress Note ---
Date of Service February 09, 2019 Assessment & Plan (1) Respiratory failure with hypoxia: - This is likely due to an acute diastolic CHF exacerbation but could be multifactorial with his underlying COPD and likely obesity hypoventilation syndrome - Reports he does not utilize O2 at home - will continue to monitor and wean O2 accordingly - may benefit from 2-step prior to D/C - Pt is due for overnight pulse ox in 2 weeks that is scheduled to be completed at home Present on Admission?: Yes (2) CHF exacerbation: - Appears to be Acute Diastolic CHF; seems like this is more a R sided failure; exacerbation seems to be largely related to non-compliance - Continue Lasix 40 mg IV daily - avoid hypotension in setting of mod/severe aortic stenosis - Monitor I&Os and daily weights - may have some discrepancies as patient self caths -- Uncertain on dry weight - Echo (Oct 2018) - EF 45-50% with mild global hypokinesis of LV, mod/severe - Consult cardiology - did discuss with Nhi Iglesias PA-C who will talk with patient and monitor Present on Admission?: Yes (3) Severe aortic stenosis: - Most recent echo supports moderate to severe ; likely contributing to SOB - states he is to have repeat echo to assess for further worsening and is getting an overnight sleep study to assess his O2 levels; she is not sure if they are considering him for TAVR Present on Admission?: Yes (4) Atrial fibrillation: - Permanent; monitor reveals rate controlled A Fib - On Coumadin for both A Fib and H/O recurrent DVT - INR subtherapeutic and currently continuing Coumadin with therapeutic Lovenox - Continue BB therapy and follow INRs (5) CAD (coronary artery disease): - STABLE - denies CP - H/O inferior STEMI (2010), CAD/CABG x 2, Ischemic Cardiomyopathy, HTN - ASA 81 mg daily, Atorvastatin 40 mg daily, Isosorbide 60 mg daily, Metoprolol 25 mg BID Present on Admission?: Yes (6) CKD (chronic kidney disease) stage 3, GFR 30-59 ml/min: - STABLE - follows with nephrology - baseline around 1.5-1.8 - Avoid nephrotoxins and monitor routinely Present on Admission?: Yes (7) COPD (chronic obstructive pulmonary disease): - STABLE - no signs of acute exacerbation at this time - Continue home inhalers and PRN nebs Present on Admission?: Yes (8) DM (diabetes mellitus): - Continue glargine 15 units HS and sliding scale - Did have some lower BSGs this afternoon so will need to monitor - due to SOB did only take a few bites of lunch today during my visit before laying down, uncertain how much he ate after I left (9) Alzheimers disease: - Anxiety/Depression/SDAT - Continue Memantine BID and Sertraline 100 mg daily Present on Admission?: Yes (10) DVT prophylaxis: - Coumadin/Lovenox Disposition: Continue to diurese and wean O2; close CHF clinic F/U on D/C Subjective Patient reports continued SOB. Is not very talkative and mostly talks for him. Noticed though he can only say 1-2 words before needing to stop to take breaths. states she has noticed progressive issues with IRVING over the past several weeks. Knows he hasnt been taking his medications for the past couple days but isn't sure if he wasn't prior as she was in the hospital for pneumonia She states at home just walking from the bedroom into the livingroom he needs to stop and rest for a long time before he can do anything more due to breathing issues. He had a reported 23 beat run of VT which has a mild irregular interval so possibly abberancy. thinks his dry weight may be 275 however his weights here put him at a lower weight. He states he feels like his abdomen gets bloated as his breathing worsens. He is due to have an overnight pulse ox study in 2 weeks. Review of Systems Constitutional: + fatigue; no fever and no chills Respiratory: + cough, + dyspnea and + dyspnea on exertion; no wheezing Cardiovascular: + edema; no chest pain and no lightheadedness Gastrointestinal: + bloating; no abdominal pain, no nausea, no vomiting, no constipation and no diarrhea/loose stools Genitourinary: no dysuria Integumentary: no rash Physical Exam Constitutional: + ill appearing (chronically ill); no acute distress Eyes: + anicteric sclerae ENMT: Ears: no hearing impairment Neck: trachea midline Respiratory: + cough; + not able to speak in complete sentence Au scultation: + diminished lung sounds and + crackles Cardiovascular: Rate/Rhythm: regular rate and + irregularly irregular Heart Sounds: + murmur Vessels: + JVD (possibly but difficult to fully assess due to body habitus) Extremities: + edema Gastrointestinal (Abdomen): Inspection/Auscultation: + abdomen distended and normal bowel sounds Musculoskeletal: Head/Neck/Chest: normocephalic and head atraumatic Skin: no rashes, warm and dry Neurologic: moves all extremities Psychiatric: Orientation: alert and oriented x 3 Affect: + flat affect Results & Data Vital Signs (Past 12 Hours) Vital Signs Temp Pulse Resp BP Pulse Ox 02/09/19 19:19 36.3 C L 51 L 19 93/55 L 97 02/09/19 15:35 36.6 C 57 L 18 90/57 L 96 02/09/19 10:44 36.9 C 65 19 111/65 96 (1) Respiratory failure with hypoxia Chronicity: acute Qualified Code(s): J96.01 - Acute respiratory failure with hypoxia (2) CHF exacerbation Heart failure type: unspecified Qualified Code(s): I50.9 - Heart failure, unspecified
[2019-02-09] MEDS: INSULIN GLARGINE SOLOSTAR 100 UNITS/ML 3 ML PEN SQ SCH (20:23)
[2019-02-09] MEDS: ATORVASTATIN 40 MG TAB PO SCH (20:23)
[2019-02-09] MEDS: NITROGLYCERIN 0.2 MG/HR PATCH TD SCH (20:24)
[2019-02-10 06:35] LABS: INR 1.8 (0.9-1.1); Prothrombin Time 17.3 Seconds (9.0-12.0)
[2019-02-10] MEDS: FUROSEMIDE 40 MG in SYRINGE 0 ML IV SCH (08:30)
[2019-02-10] MEDS: FINASTERIDE 5 MG TAB PO SCH (08:31)
[2019-02-10] MEDS: FLUTICASONE/SALMETEROL 250/50 (ADVAIR) 14 PUFF/1 INHALER INH SCH ×2 (08:31→21:20)
[2019-02-10] MEDS: IPRATROPIUM BROMIDE/ALBUTEROL respimat INH INH SCH ×4 (08:31→21:20)
[2019-02-10] MEDS: CHOLECALCIFEROL 1,000 UNITS TAB PO SCH (08:31)
[2019-02-10] MEDS: ISOSORBIDE MONO EXTENDED REL 60 MG TABCR PO SCH (08:31)
[2019-02-10] MEDS: TAMSULOSIN HCL 0.4 MG CAP PO SCH (08:31)
[2019-02-10] MEDS: SERTRALINE HCL 100 MG TABLET PO SCH (08:31)
[2019-02-10] MEDS: METOPROLOL TARTRATE 25 MG TAB PO SCH ×2 (08:31→21:20)
[2019-02-10] MEDS: THIAMINE HCL 100 MG TAB PO SCH (08:33)
[2019-02-10] MEDS: ASPIRIN 81 MG ECTAB PO SCH (08:33)
[2019-02-10] MEDS: MEMANTINE HCL 10 MG TAB PO SCH ×2 (08:33→21:21)
[2019-02-10] MEDS: INSULIN ASPART 100 UNITS/ML 3 ML PEN SC SCH ×4 (08:36→21:24)
[2019-02-10 09:18] LABS: BUN Creatinine Ratio 19.6 (10-20); Calcium 8.6 mg/dl (8.5-10.1); Creatinine Clr Calc Pharmacy 42.8 ml/min; Est GFR (African American) 39.3; Est GFR (Non-African American) 33.9; Magnesium 2.3 mg/dl (1.8-2.4); Potassium 4.1 mmol/L (3.5-5.1)
[2019-02-10] MEDS: ENOXAPARIN INJ 120 MG/0.8 ML SYR SC SCH ×2 (12:51→23:08)
[2019-02-10] MEDS ORDERED: BACITRACIN/POLYMYXIN B SULFATE 90 APPLN/28.4 GM TUBE EXT PRN (15:31)
[2019-02-10] MEDS ORDERED: LIDOCAINE HCL 5% OINT 30 GM TUBE EXT PRN (15:34)
[2019-02-10] MEDS: WARFARIN SOD 10 MG TAB PO SCH (17:02)
--- NOTE | 2019-02-10 17:59 | XRay Report ---
XR chest 2V routine CLINICAL HISTORY: CHF; ongoing dyspnea COMPARISON STUDY: 02/08/2019 FINDINGS: The heart remains enlarged. There are postsurgical changes of a midline sternotomy. There i s a right-sided A-Port catheter present. There is resolving pulmonary vascular congestion. There is a persistent right pleural effusion with associated right basilar atelectasis/consolidation.[ IMPRESSION: 1. Cardiomegaly and resolving pulmonary vascular congestion/fluid overload 2. Persistent right pleural effusion with associated right basilar airspace opacities Electronically signed by: Nagi Springer M.D. 02/10/2019 5:57 PM
--- NOTE | 2019-02-10 19:53 | Hospitalist Progress Note ---
Date of Service February 10, 2019 Assessment & Plan (1) Respiratory failure with hypoxia: 2nd to acute/chronic CHF - resp failure now resolved, weaned to room air. Present on Admission?: Yes (2) CHF exacerbation: acute/chronic systolic/diastolic CHF. acute component appears clinically resolved and Cr davidson overnight. also his weight is 265 pounds - family reports dry weight is 275 pounds? continue beta bartolome. agree w/ cardiology we should consider changing metoprolol tartrate to succinate - this may also help with compliance. ideally should be on RASHAD or ARB but uncertain if creatinine will allow. due to volume status on exam and rise in creatinine will HOLD lasix IV after today's dose and re-eval in am. Present on Admission?: Yes (3) Severe aortic stenosis: noted. avoid excessive afterload reduction. Present on Admission?: Yes (4) Atrial fibrillation: Rates controlled with beta bartolome. INR subtherapeutic at admission - thus, therapeutic lovenox was employed as bridge. repeat INR in am. If INR is 2 or higher then stop lovenox bridge. (5) CAD (coronary artery disease): H/O inferior STEMI (2010), CABG x 2, Ischemic Cardiomyopathy Continue ASA 81 mg daily, Atorvastatin 40 mg daily, Isosorbide 60 mg daily, Metoprolol. No ischemic symptoms at this time. (6) CKD (chronic kidney disease) stage 3, GFR 30-59 ml/min: baseline Cr 1.3 to 1.4. now with superimposed VICTORIANO due to diuresis. HOLD further IV lasix; BMP am. Present on Admission?: Yes (7) COPD (chronic obstructive pulmonary disease): No acute exacerbation presently. Continue home inhalers and PRN nebs. (8) DM (diabetes mellitus): Controlled. Cont basal-bolus regimen. (9) Alzheimers disease: Continue Memantine BID (10) DVT prophylaxis: Coumadin/Lovenox (11) IRVING (dyspnea on exertion): suspect mostly due to CHF. cannot rule out COPD contributing. cannot rule out CAD or contributing. cxr obtained today - right lower lobe opacity seen along w/ effusion. obtained CT chest noncontrast to further elucidate these findings and see if other pathology contributing to dyspnea. (12) BPH loc w urin obs/LUTS: self-caths at least once daily. continue such while here. continue alpha bartolome. family updated at bedside. PT, OT jayaals to ensure safe for d/c home. Subjective multiple family members at bedside during the visit. he appeared comfortable and w/o dyspnea. family state, however, that with exertion he has ongoing dyspnea. no cough. they ask multiple questions about how he can avoid CHF. they believe his dry weight is 275 pounds (today he was 265 pounds this AM). he does not check his weights frequently at home. tele with marti rodriguez. Review of Systems Constitutional: no fever Respiratory: + dyspnea on exertion and + wheezing; no cough and no chest congestion Cardiovascular: no chest pain Gastrointestinal: no abdominal pain Physical Exam Constitutional: + obese; no acute distress ENMT: external ear and nose normal, oropharynx normal Respiratory: normal respiratory effort; no respiratory distress Auscultation: + diminished lung sounds (both bases, modestly worse on right) and + wheezes; no crackles and no rhonchi Cardiovascular: Rate/Rhythm: regular rate and + irregularly irregular Heart Sounds: normal S1, normal S2 and + murmur (1/6 RUSB) Vessels: posterior tibial pulses present and dorsalis pedis pulses present; no JVD Extremities: + pedal edema (trace ) and + varicosities Gastrointestinal (Abdomen): normal bowel sounds, soft, nontender, no hepatosplenomegaly Psychiatric: Orientation: alert Results & Data Vital Signs (Past 12 Hours) Vital Signs Temp Pulse Pulse Resp BP Pulse Ox 02/10/19 19:40 36.5 C 65 18 106/64 92 02/10/19 15:07 36.5 C 55 L 64 19 113/67 97 02/10/19 11:03 36.7 C 51 L 19 104/60 93 02/10/19 08:00 59 L Laboratory Results Laboratory Results - last 24 hr 02/10/19 02/10/19 02/10/19 05:48 05:48 07:16 PT 17.3 H INR 1.8 H Sodium 140 Potassium 4.1 Chloride 102 Carbon Dioxide 32 Anion Gap 6.0 BUN 36 H Creatinine 1.85 H D Est Cr Clr Drug Dosing 42.8 Est GFR ( Amer) 39.3 Est GFR (Non-Af Amer) 33.9 BUN/Creatinine Ratio 19.6 Glucose 157 H POC Glucose 163 H Calcium 8.6 Magnesium 2.3 02/10/19 02/10/1902/10/19 11:27 16:28 20:18 PT INR Sodium Potassium Chloride Carbon Dioxide Anion Gap BUN Creatinine Est Cr Clr Drug Dosing Est GFR ( Amer) Est GFR (Non-Af Amer) BUN/Creatinine Ratio Glucose POC Glucose 79 92 182 H Calcium Magnesium (1) Respiratory failure with hypoxia Chronicity: acute Qualified Code(s): J96.01 - Acute respiratory failure with hypoxia (2) CHF exacerbation Heart failure type: unspecified Qualified Code(s): I50.9 - Heart failure, unspecified (3) Atrial fibrillation Atrial fibrillation type: chronic Qualified Code(s): I48.2 - Chronic atrial fibrillation (4) CAD (coronary artery disease) Coronary Disease-Associated Artery/Lesion type: [place] artery [place] vs. transplanted heart: [place] heart Associated angina: without angina Qualified Code(s): I25.10 - Atherosclerotic heart disease of [place] coronary artery without angina pectoris (5) COPD (chronic obstructive pulmonary disease) COPD type: unspecified COPD Qualified Code(s): J44.9 - Chronic obstructive pulmonary disease, unspecified (6) DM (diabetes mellitus) Diabetes mellitus type: type 2 Diabetes mellitus alf insulin use: with terminal block assembler use Diabetes mellitus complication status: with unspecified complications Qualified Code(s): E11.8 - Type 2 diabetes mellitus with unspecified complications; Z79.4 - long-term (current) use of insulin (7) Alzheimers disease Alzheimer's disease onset: unspecified onset Dementia behavioral disturbance: without behavioral disturbance Qualified Code(s): G30.9 - Alzheimer's disease, unspecified; F02.80 - Dementia in other diseases classified elsewhere without behavioral disturbance
--- NOTE | 2019-02-10 20:43 | CT Scan Report ---
CT chest wo con CLINICAL HISTORY: CHF, right pleural effusion COMPARISON STUDY: 10/26/2016, chest x-ray dated 02/10/2019 CT DOSE: 881.86 mGy.cm TECHNIQUE: CT of the thorax was performed from the thoracic inlet to the lung bases. Images are revi ewed in the axial, sagittal, and coronal planes. IV contrast was not administered for this examinatio n. A dose lowering technique was utilized adhering to the principles of ALARA. FINDINGS: Thyroid: Imaged portions of the thyroid gland are normal in appearance. Thoracic aorta: There is mild aneurysmal dilatation of the ascending thoracic aorta which measures 45 mm. Heart: The heart is enlarged. There are coronary artery calcifications. There is no pericardial effus ion. Lungs and pleural spaces: There is a small right pleural effusion. There is no focal pulmonary consol idation. There is mild right lower lobe bronchial wall thickening. There are calcified right lobe gra nulomas. Mediastinum: There is mild mediastinal lymphadenopathy similar to the prior study. Subcarinal lymph n odes are calcified, likely on a postinflammatory basis. Elvira: There are calcified hilar lymph nodes. Axilla: There is no evidence of pathologic axillary lymphadenopathy. Upper abdomen: There are multiple gallstones. There is a right-sided A-Port catheter present. Skeletal structures: There are no lytic or blastic osseous lesions. IMPRESSION: 1. Cardiomegaly and coronary artery calcifications 2. Stable mild aneurysmal dilatation of the ascending thoracic aorta 3. Right pleural effusion. Right lung atelectatic changes. 4. Mild right lower lobe bronchial wall thickening 5. Cholelithiasis 6. Stable mildly enlarged mediastinal lymph nodes. Electronically signed by: Nagi Springer M.D. 02/10/2019 8:41 PM
[2019-02-10] MEDS: NITROGLYCERIN 0.2 MG/HR PATCH TD SCH (21:21)
[2019-02-10] MEDS: ATORVASTATIN 40 MG TAB PO SCH (21:21)
[2019-02-10] MEDS: INSULIN GLARGINE SOLOSTAR 100 UNITS/ML 3 ML PEN SQ SCH (21:24)
[2019-02-11 06:44] LABS: Prothrombin Time 19.3 Seconds (9.0-12.0)
[2019-02-11 06:49] LABS: BUN Creatinine Ratio 20.9 (10-20); Calcium 8.7 mg/dl (8.5-10.1); Creatinine Clr Calc Pharmacy 41.8 ml/min; Est GFR (Non-African American) 32.8; Potassium 4.6 mmol/L (3.5-5.1)
[2019-02-11] MEDS: MEMANTINE HCL 10 MG TAB PO SCH ×2 (08:42→20:22)
[2019-02-11] MEDS: TAMSULOSIN HCL 0.4 MG CAP PO SCH (08:42)
[2019-02-11] MEDS: ISOSORBIDE MONO EXTENDED REL 60 MG TABCR PO SCH (08:42)
[2019-02-11] MEDS: FINASTERIDE 5 MG TAB PO SCH (08:42)
[2019-02-11] MEDS: ASPIRIN 81 MG ECTAB PO SCH (08:42)
[2019-02-11] MEDS: CHOLECALCIFEROL 1,000 UNITS TAB PO SCH (08:42)
[2019-02-11] MEDS: METOPROLOL SUCC 25MG EXT REL TAB PO SCH (08:42)
[2019-02-11] MEDS: SERTRALINE HCL 100 MG TABLET PO SCH (08:43)
[2019-02-11] MEDS: INSULIN ASPART 100 UNITS/ML 3 ML PEN SC SCH ×4 (08:43→20:24)
[2019-02-11] MEDS: FLUTICASONE/SALMETEROL 250/50 (ADVAIR) 14 PUFF/1 INHALER INH SCH ×2 (08:43→20:22)
[2019-02-11] MEDS: IPRATROPIUM BROMIDE/ALBUTEROL respimat INH INH SCH ×4 (08:43→20:22)
[2019-02-11] MEDS: THIAMINE HCL 100 MG TAB PO SCH (08:44)
[2019-02-11] MEDS: FUROSEMIDE 40 MG TAB PO SCH (10:50)
--- NOTE | 2019-02-11 16:55 | Hospitalist Progress Note ---
Date of Service February 11, 2019 Assessment & Plan (1) Respiratory failure with hypoxia: 2nd to acute/chronic CHF - improved but still requiring O2 with minimal exertion reports he barely does any activity at home due to severe dyspnea with exertion -will need home O2 -Respiratory Therapy consulted to perform 2 step walk test in the morning (2) CHF exacerbation: acute/chronic systolic/diastolic CHF. LVEF 45-50% on ECHO from 10/2018 With valvular disease mod-severe , mild MS acute component appears clinically resolved and Cr davidson again overnight. - family reports dry weight is 275 pounds and is below that here but weight up from yesterday, overall net negative 1.2L this admission -dc IV lasix and start po lasix 40mg daily -continue beta bartolome. agree w/ cardiology we should consider changing metoprolol tartrate to succinate - this may also help with compliance. ideally should be on RASHAD or ARB but uncertain if creatinine will allow. -follow daily weight and I/Os in the morning with switching to po diuretic -follow BMP in AM and ok for dc if head of partner development improves and volume status remains acceptable -will have him follow in the CHF clinic (3) Severe aortic stenosis: noted. avoid excessive afterload reduction. (4) Atrial fibrillation: Rates controlled with beta bartolome. INR subtherapeutic at admission - thus, therapeutic lovenox was employed as bridge. Dc Lovenox today as INR now 2.0 -follow INR in AM -continue coumadin -stable for downgrade to medical floor (5) CAD (coronary artery disease): H/O inferior STEMI (2010), CABG x 2, Ischemic Cardiomyopathy Continue ASA 81 mg daily, Atorvastatin 40 mg daily, Isosorbide 60 mg daily, Metoprolol. No ischemic symptoms at this time. (6) CKD (chronic kidney disease) stage 3, GFR 30-59 ml/min: baseline Cr 1.3 to 1.4. now with superimposed VICTORIANO due to diuresis. Acute Care Physical Therapist slightly worse today at 1.9 -stopped IV lasix and switched to po lasix today -follow BMP in AM (7) COPD (chronic obstructive pulmonary disease): No acute exacerbation presently. Did have slight wheeze on exam today Continue home inhalers and PRN nebs. (8) DM (diabetes mellitus): Controlled.HgbA1C here is 7.7% which is improved from previous Cont basal-bolus regimen. (9) Alzheimers disease: Continue Memantine BID (10) IRVING (dyspnea on exertion): suspect mostly due to CHF. cannot rule out COPD contributing. cannot rule out CAD or contributing. cxr obtained on 02/10 - right lower lobe opacity seen along w/ effusion. obtained CT chest noncontrast to further elucidate these findings and see if other pathology contributing to dyspnea and was negative except for small effusion with associated atelectasis-continue po diuretics. (11) BPH loc w urin obs/LUTS: self-caths at least once daily. continue such while here. continue alpha bartolome. updated at bedside. PT, OT evals to ensure safe for d/c home-PT recommends return home, OT recommends Home with Home Health and 24 hr supervision which he has (12) DVT prophylaxis: Coumadin Subjective Pt tired, has no complaints except requesting a fan because he is hot in the room. He does say his leg swelling is down quite a bit and agrees. Still very dyspneic on exertion. RN did POx w/ ambulation today and dropped to 88% on RA with minimal ambulation Tele with Afib, rates in the 60s. Review of Systems Review of Systems: All systems reviewed & are unremarkable except as noted in HPI & below Physical Exam Constitutional: WD/WN, vitals as above + obese Eyes: PERRL, conjunctivae normal, anicteric sclerae Neck: trachea midline, no thyromegaly Respiratory: normal respiratory effort, lungs clear to auscultation Auscultation: + wheezes (occasional exp wheeze) Cardiovascular: Rate/Rhythm: regular rate and + irregularly irregular Heart Sounds: + murmur (2/6 ALEE at RUSB) Extremities: + edema (trace pitting edema legs bilat) Gastrointestinal (Abdomen): normal bowel sounds, soft, nontender, no hepatosplenomegaly (obese) Musculoskeletal: Extremities: extremities normal to inspection; no cyanosis and no clubbing Skin: no rashes, warm and dry Neurologic: moves all extremities and awake; no focal motor deficits Psychiatric: Orientation: alert and cooperative Eye Contact: + fair eye contact Results & Data Vital Signs (Past 12 Hours) Vital Signs Temp Pulse Pulse Resp BP BP Pulse Ox 02/11/19 16:09 58 L 02/11/19 15:37 36.4 C L 67 18 128/82 92 02/11/19 11:20 36.9 C 57 L 20 126/63 97 02/11/19 08:00 61 02/11/19 07:23 36.8 C 63 18 115/77 97 Laboratory Results 02/11/19 02/11/19 02/11/19 Range/Units 16:15 11:32 07:21 PT (9.0-12.0) Seconds INR (0.9-1.1) Sodium (136-145) mmol/L Potassium (3.5-5.1) mmol/L Chloride (98-107) mmol/L Carbon Dioxide (21-32) mmol/L Anion Gap (3-11) BUN (7-18) mg/dl Creatinine (0.6-1.4) mg/dl Est Cr Clr Drug Dosing ml/min Est GFR ( Amer) Est GFR (Non-Af Amer) BUN/Creatinine Ratio (10-20) Glucose (70-99) mg/dl POC Glucose 120 H 172 H 137 H (70-99) Calcium (8.5-10.1) mg/dl 02/11/19 02/11/19 02/10/19 Range/Units 06:04 06:04 20:18 PT 19.3 H (9.0-12.0) Seconds INR 2.0 H (0.9-1.1) Sodium 141 (136-145) mmol/L Potassium 4.6 (3.5-5.1) mmol/L Chloride 104 (98-107) mmol/L Carbon Dioxide 32 (21-32) mmol/L Anion Gap 5.0 (3-11) BUN 40 H (7-18) mg/dl Creatinine 1.90 H (0.6-1.4) mg/dl Est Cr Clr Drug Dosing 41.8 ml/min Est GFR ( Amer) 38.0 Est GFR (Non-Af Amer) 32.8 BUN/Creatinine Ratio 20.9 H (10-20) Glucose 152 H (70-99) mg/dl POC Glucose 182 H (70-99) Calcium 8.7 (8.5-10.1) mg/dl (1) Respiratory failure with hypoxia Chronicity: acute Qualified Code(s): J96.01 - Acute respiratory failure with hypoxia (2) CHF exacerbation Heart failure type: unspecified Qualified Code(s): I50.9 - Heart failure, unspecified (3) Atrial fibrillation Atrial fibrillation type: chronic Qualified Code(s): I48.2 - Chronic atrial fibrillation (4) CAD (coronary artery disease) Coronary Disease-Associated Artery/Lesion type: [place] artery [place] vs. transplanted heart: [place] heart Associated angina: without angina Qualified Code(s): I25.10 - Atherosclerotic heart disease of [place] coronary artery without angina pectoris (5) COPD (chronic obstructive pulmonary disease) COPD type: unspecified COPD Qualified Code(s): J44.9 - Chronic obstructive pulmonary disease, unspecified (6) DM (diabetes mellitus) Diabetes mellitus type: type 2 Diabetes mellitus termite helper insulin use: with termite helper use Diabetes mellitus complication status: with unspecified complications Qualified Code(s): E11.8 - Type 2 diabetes mellitus with unspecified complications; Z79.4 - MCFP (current) use of insulin (7) Alzheimers disease Alzheimer's disease onset: unspecified onset Dementia behavioral disturbance: without behavioral disturbance Qualified Code(s): G30.9 - Alzheimer's disease, unspecified; F02.80 - Dementia in other diseases classified elsewhere without behavioral disturbance
[2019-02-11] MEDS: WARFARIN SOD 7.5 MG TAB PO SCH (18:19)
[2019-02-11] MEDS: INSULIN GLARGINE SOLOSTAR 100 UNITS/ML 3 ML PEN SQ SCH (20:23)
[2019-02-11] MEDS: ATORVASTATIN 40 MG TAB PO SCH (20:23)
[2019-02-11] MEDS: NITROGLYCERIN 0.2 MG/HR PATCH TD SCH (20:24)
[2019-02-12 06:31] LABS: INR 2.2 (0.9-1.1); Prothrombin Time 20.9 Seconds (9.0-12.0)
[2019-02-12 06:43] LABS: BUN Creatinine Ratio 20.3 (10-20); Calcium 8.4 mg/dl (8.5-10.1); Creatinine Clr Calc Pharmacy 45.1 ml/min; Est GFR (African American) 41.7; Potassium 4.2 mmol/L (3.5-5.1)
[2019-02-12] MEDS: FUROSEMIDE 40 MG TAB PO SCH (07:48)
[2019-02-12] MEDS: IPRATROPIUM BROMIDE/ALBUTEROL respimat INH INH SCH ×2 (07:48→13:18)
[2019-02-12] MEDS: ASPIRIN 81 MG ECTAB PO SCH (07:48)
[2019-02-12] MEDS: CHOLECALCIFEROL 1,000 UNITS TAB PO SCH (07:48)
[2019-02-12] MEDS: SERTRALINE HCL 100 MG TABLET PO SCH (07:48)
[2019-02-12] MEDS: ISOSORBIDE MONO EXTENDED REL 60 MG TABCR PO SCH (07:48)
[2019-02-12] MEDS: THIAMINE HCL 100 MG TAB PO SCH (07:48)
[2019-02-12] MEDS: FLUTICASONE/SALMETEROL 250/50 (ADVAIR) 14 PUFF/1 INHALER INH SCH (07:48)
[2019-02-12] MEDS: TAMSULOSIN HCL 0.4 MG CAP PO SCH (07:49)
[2019-02-12] MEDS: MEMANTINE HCL 10 MG TAB PO SCH (07:49)
[2019-02-12] MEDS: METOPROLOL SUCC 25MG EXT REL TAB PO SCH (07:49)
[2019-02-12] MEDS: FINASTERIDE 5 MG TAB PO SCH (07:49)
[2019-02-12] MEDS: INSULIN ASPART 100 UNITS/ML 3 ML PEN SC SCH ×2 (08:42→13:18)
--- NOTE | 2019-02-12 14:08 | Discharge Summary ---
Date of Service February 12, 2019 Admission HPI Per Admitting Provider The patient is a 78-year-old male with a past medical history including COPD, aortic stenosis, CHF, CAD, history of DC, atrial fibrillation, stroke, CKD and SDAT who presents to the emergency department with several days of worsening shortness of breath, dyspnea on exertion, intermittent chest discomfort and cough that is primarily dry, but occasionally coughs up a gob of mucus. He has not had any recent travels or sick exposures that he is aware of. Principal Diagnosis Acute on chronic diastolic CHF Discharge Exam Constitutional WD/WN, vitals as above + obese Eyes PERRL, conjunctivae normal, anicteric sclerae Neck trachea midline, no thyromegaly Respiratory normal respiratory effort, lungs clear to auscultation Cardiovascular Rate/Rhythm: regular rate and + irregularly irregular Heart Sounds: + murmur (2/6 ALEE at RUSB) Extremities: no edema (Resolved) Gastrointestinal (Abdomen) normal bowel sounds, soft, nontender, no hepatosplenomegaly (obese) Musculoskeletal Extremities: extremities normal to inspection; no cyanosis and no clubbing Skin no rashes, warm and dry Neurologic moves all extremities and awake; no focal motor deficits Psychiatric Orientation: alert and cooperative Eye Contact: + fair eye contact Discharge Data Allergies Allergy/AdvReac Type Severity Reaction Status Date / Time codeine AdvReac Intermediate EMESIS Verified 02/08/19 21:37 Iodinated Contrast- Oral and AdvReac Mild NAUSEA Verified 02/08/19 21:37 IV Dye Consultations 02/08/19 22:51 ED Decision to Admit Stat 02/09/19 00:53 Consult Case Management - Discharge Planning Routine 02/09/19 12:18 Consult Cardiology Routine Ordered Studies 02/10/19 19:53 CT chest wo con Routine Chest x-ray x2 Echocardiogram Hospital Course (1) Respiratory failure with hypoxia: Secondary to acute/chronic CHF -now resolved, passed a two-step walking test on the day of discharge-he did not drop below 96% on room air reports he barely does any activity at home due to severe dyspnea with exertion which is likely due to severe deconditioning (2) CHF exacerbation: acute/chronic systolic/diastolic CHF. Suspect was due to noncompliance at home as he has cognitive impairment and admits to not taking medications at times LVEF 45-50% on ECHO from 10/2018 With valvular disease mod-severe , mild MS acute component appears clinically resolved and creatinine stable - family reports dry weight is 275 pounds and is below that here but weight up from yesterday, overall net negative for fluid status and weight slightly down from admission, clinically improved -Continue on po lasix 40mg daily -continue beta bartolome which was switched to metoprolol succinate for his systolic dysfunction ideally should be on RASHAD or ARB but uncertain if creatinine will allow. -follow daily weight at home CHF instructions given -will have him follow in the CHF clinic -Given his cognitive impairment, he will need close follow-up and assistance from family members with taking his medications appropriately (3) Severe aortic stenosis: noted. avoid excessive afterload reduction. -Should be followed as an outpatient with cardiology (4) Atrial fibrillation: Rates controlled with beta bartolome. Permanent atrial fibrillation INR subtherapeutic at admission - thus, therapeutic lovenox was employed as bridge. INR in the day of discharge was therapeutic at 2.2 -follow INR in 1 week -continue coumadin at usual home dosing (5) CAD (coronary artery disease): H/O inferior STEMI (2010), CABG x 2, Ischemic Cardiomyopathy Continue ASA 81 mg daily, Atorvastatin 40 mg daily, Isosorbide 60 mg daily, Metoprolol. No ischemic symptoms at this time. (6) CKD (chronic kidney disease) stage 3, GFR 30-59 ml/min: baseline Cr 1.3 to 1.4. now with superimposed VICTORIANO due to diuresis. Acupuncturist peaked at 1.9 is now improved 1.7 on the day of discharge -Follow BMP as an outpatient with CHF clinic in 1 week (7) COPD (chronic obstructive pulmonary disease): No acute exacerbation presently Continue home inhalers and PRN nebs. (8) DM (diabetes mellitus): Controlled.HgbA1C here is 7.7% which is improved from previous Cont basal-bolus regimen. -Received diabetic nurse education while here (9) Alzheimers disease: Continue Memantine BID (10) IRVING (dyspnea on exertion): suspect mostly due to CHF, but also due to severe deconditioning and chronic lung disease cxr obtained on 02/10 - right lower lobe opacity seen along w/ effusion. obtained CT chest noncontrast to further elucidate these findings and see if other pathology contributing to dyspnea and was negative except for small effusion with associated atelectasis-continue po diuretics. (11) BPH loc w urin obs/LUTS: self-caths at least once daily. continue such while here. continue alpha bartolome. PT, OT evals to ensure safe for d/c home-PT recommends return home, OT recommends Home with Home Health and 24 hr supervision which he has-stable for discharge to home today and patient declines home services (12) DVT prophylaxis: Coumadin Total Time Total Time Spent Total Time Spent (In Minutes): Greater than 30 minutes Total Time Includes: Examination of the Patient, Discharge Planning, Medication Reconciliation and Communication With Other Providers (Cardiology PA with CHF clinic) Discharge Plan Discharge Items Patient Disposition: Home - Self-Care Reason For Visit: CHF Discharge Diagnosis: Acute on chronic diastolic CHF Condition: Good Discharge Goals: Diagnostic testing, Improve disease control, Learn about illness and Therapeutic intervention Activity: As commented below Lifting: Gradually increase as tolerated Bathing: No limitations Exercise/Sports: Gradually increase as tolerated Non-emergency contact: Primary Care Provider and Rail Signal Worker Follow-up/Referrals: Deidra Correa MD [Primary Care Provider] - 02/19/19 9:30 am (Please follow up with Dr. Correa on Tuesday, February 19 at 9:30am.) Diet: Low Sodium (2gm) Fluids: 1800ml (7 cups) Addtl Provider Instructions: You were admitted with excessive fluid due to congestive heart failure. You were treated with Lasix through the IV and lost a lot of weight. Please follow-up with the timber management specialist and your primary care physician as scheduled for you within 1 to 2 weeks. Your metoprolol was changed to a long-acting version called Toprol-XL to be taken once daily in the morning. Please stop taking your old metoprolol that was twice daily. Please have your INR checked in 1 week Call your Primary Care doctor if any of the following symptoms or problems start or get worse: * Shortness of breath or difficulty breathing * Wake up at night short of breath * Chest pain * Cough * Swelling of your hands, feet, or legs * More fatigued or tired with your normal activity * Palpitations - sudden fast heart beats WEIGHT * Weigh yourself every morning after using the bathroom. * Use the same scale. * Wear the same amount of clothing. * Write your weight down on a chart. * Call your Primary Care doctor if you gain more than 2-3 pounds in 1-2 days. MEDICATIONS * Use this discharge instruction sheet for medication instructions. * Take your medications at the time your doctor ordered. * Do not skip a dose of your medicines. * If you miss a dose of medicine, take it as soon as possible, but DO NOT DOUBLE A DOSE. * Read your medicine information when you get home. * Know all of the side effects of your medicine. If in doubt, ask your pharmacist * Call your Primary Care doctor's office if you have any side effects. * Be sure all of your doctors know what medicine and herbs you take (including cold, flu, and herbal medicine). Take the following with you to your follow-up doctor appointments: * Weight Chart * Medication List * List of questions Do not drink excessive alcohol, beer or wine. Prescriptions: New metoprolol succinate 25 mg Tablet Extended Release 24 Hr 25 mg PO QAM Qty: 30 RF: 0 Continued furosemide 40 mg Tablet 40 mg PO DAILY RF: 0 atorvastatin 40 mg Tablet 40 mg PO HS RF: 0 nitrofurantoin macrocrystal 50 mg Capsule 50 mg PO HS RF: 0 ipratropium-albuterol 0.5 mg-3 mg(2.5 mg base)/3 mL Solution For Nebulization 3 ml INHALATION Q4H PRN (Reason: Shortness Of Breath) RF: 0 ranitidine HCl 300 mg Tablet 300 mg PO HS RF: 0 nitroglycerin 0.2 mg/hr Patch 24 Hour 1 patch TRANSDERMAL QPM RF: 0 sertraline 100 mg Tablet 100 mg PO DAILY RF: 0 thiamine HCl (vitamin B1) 100 mg Tablet 100 mg PO DAILY RF: 0 aspirin [Aspir-81] 81 mg Tablet,Delayed Release (Dr/Ec) 81 mg PO DAILY RF: 0 isosorbide mononitrate 60 mg Tablet Extended Release 24 Hr 60 mg PO DAILY RF: 0 tamsulosin 0.4 mg Capsule 0.4 mg PO DAILY RF: 0 warfarin 5 mg Tablet 10 mg PO 4XWK RF: 0 warfarin 5 mg Tablet 7.5 mg PO 3XWK RF: 0 nitroglycerin 400 mcg/spray [place],Non-Aerosol 1 spray Sublingual Q5M PRN (Reason: Chest Pain) RF: 0 finasteride 5 mg Tablet 5 mg PO DAILY RF: 0 Novolog Flexpen U-100 Insulin 100 unit/mL Insulin Pen SUBCUT TID RF: 0 memantine 10 mg Tablet 10 mg PO BID RF: 0 Advair HFA 115-21 mcg/actuation Hfa Aerosol Inhaler 2 puff INHALATION Q12H RF: 0 Tresiba FlexTouch U-100 100 unit/mL (3 mL) Insulin Pen 15 unit SUBCUT HS RF: 0 Combivent Respimat 20-100 mcg/actuation Mist 1 puff INHALATION QID RF: 0 cholecalciferol (vitamin D3) [Vitamin D3] 5,000 unit Tablet 5,000 unit PO DAILY RF: 0 Discontinued metoprolol tartrate 25 mg Tablet 25 mg PO BID RF: 0 Stand-Alone Forms: [employer] [facility] [employer]/Other Patient Handouts: Hyperglycemia, Hypoglycemia, Diabetes Type 2 Coping, Blood Sugar Check Discharge Orders: Discharge Order (Routine); Ordered 02/12/19 Ordered By: Lacey Joyner Admission Data Admit Date/Time: 02/08/19 23:53 Attending Provider: Lacey Joyner Admit Provider: Parag Guzman Primary Care Provider: Deidra Correa Other Providers: Parag Guzman ; Ramiro Patten Service: Medical Other Pending Studies at Discharge: No
--- NOTE | 2019-02-20 05:44 | Coding Query ---
CONGESTIVE HEART FAILURE To Promote full compliance with coding requirements relating to patient care, physician participation is requested in all cases of senior drupal developer uncertainty. Please assist us with the following questions. A diagnosis of Congestive Heart Failure is documented in the patient's medical record. To accurately code this diagnosis and to compare patient severity, we ask that you specify the type of heart failure by placing an X within the parenthesis (x). SYSTOLIC HEART FAILURE ( ) Acute ( ) Chronic ( ) Acute on Chronic ( ) Rheumatic ( ) Unknown DIASTOLIC HEART FAILURE ( ) Acute ( ) Chronic ( ) Acute on Chronic ( ) Rheumatic ( ) Unknown COMBINED SYSTOLIC AND DIASTOLIC HEART FAILURE ( ) Acute ( ) Chronic ( x) Acute on Chronic ( ) Rheumatic ( ) Unknown Was the CHF Present On Admission? Please check the appropriate box: (x ) Present on Admission ( ) Not Present On Admission ( ) Clinically undetermined Thank you CORNELIUS Garcia [facility]PITALN[facility]
== END 2019-02-12 16:58 | disposition home or self-care (01) | DRG 291 ==
LOC: ED 20:57 → SUATTDRO 23:53 → 2S 23:53 → 4E 02-11 18:44

== ENCOUNTER 2020-02-26 22:11 | Observation (INO) ==
[2020-02-26] MEDS ORDERED: PIPERACILLIN/TAZOBACTAM 4.5 GM/120 ML BAG IV ONE (22:44)
[2020-02-26] MEDS ORDERED: PIPERACILL/TAZOBAC CONSULT ACTIVE PRN (22:44)
[2020-02-26 23:04] LABS: INR 1.7 (0.9-1.1); Partial Thromboplastin Ratio 1.1; Prothrombin Time 17.4 Seconds (9.0-12.0)
[2020-02-26 23:06] LABS: Alanine Aminotransferase 23 U/L (12-78); Albumin Level 3.2 gm/dl (3.4-5.0); Aspartate Aminotransferase 18 U/L (15-37); BUN Creatinine Ratio 14.4 (10-20); Blood Urea Nitrogen 26 mg/dl (7-18); C Reactive Protein < 0.29 mg/dl (0-0.29); Calcium 8.8 mg/dl (8.5-10.1); Carbon Dioxide 29 mmol/L (21-32); Chloride 104 mmol/L (98-107); Est GFR (African American) 39.5; Est GFR (Non-African American) 34.1; Glucose 188 mg/dl (70-99); Magnesium 2.1 mg/dl (1.8-2.4); Potassium 4.7 mmol/L (3.5-5.1); Sodium 137 mmol/L (136-145)
[2020-02-26 23:09] LABS: Albumin Globulin Ratio 0.9 (0.9-2); Alkaline Phosphatase 77 U/L (45-117); Bilirubin,Total 0.6 mg/dl (0.2-1); Globulin 3.4 gm/dl (2.5-4.0); NT Pro B Type Natriuretic Pept 10819 pg/ml (0-1800); Phosphorus 3.4 mg/dl (2.5-4.9); Total Protein 6.6 gm/dl (6.4-8.2); Troponin I 0.018 ng/ml (0-0.045)
[2020-02-26 23:10] LABS: Basophils # (auto) 0.03 K/uL (0-0.2); Basophils % (auto) 0.4 %; Eosinophils # (auto) 0.18 K/uL (0-0.5); Eosinophils % (auto) 2.2 %; Hematocrit (blood only) 39.9 % (42-52); Hemoglobin 12.9 g/dL (14.0-18.0); Immature Granulocytes # (auto) 0.02 K/uL (0.00-0.02); Immature Granulocytes % (auto) 0.2 %; Lymphocytes # (auto) 1.43 K/uL (1.2-3.4); Lymphocytes % (auto) 17.8 %; Mean Corpuscular Hemoglobin 30.4 pg (25-34); Mean Corpuscular Hgb Conc 32.3 g/dL (32-36); Mean Corpuscular Volume 94.1 fL (80-100); Mean Platelet Volume 10.3 fL (7.4-10.4); Monocytes % (auto) 8.7 %; Neutrophils # (auto) 5.66 K/uL (1.4-6.5); Neutrophils % (auto) 70.7 %; Platelet Count 200 K/uL (130-400); RDW Coefficient of Variation 15.9 % (11.5-14.5); Red Blood Count 4.24 M/uL (4.7-6.1); White Blood Count 8.02 K/uL (4.8-10.8)
[2020-02-26] MEDS ORDERED: VANCOMYCIN CONSULT ACTIVE PRN (23:37)
[2020-02-26] MEDS ORDERED: VANCOMYCIN HCL 2,500 MG in SODIUM CHLORIDE 0.9% 500 ML IV ONE (23:37)
--- NOTE | 2020-02-27 00:57 | Emergency Department Note ---
Impression & Plan Cellulitis, CHF (congestive heart failure), CKD (chronic kidney disease) stage 3, GFR 30-59 ml/min, Permanent atrial fibrillation ED Provider Note NAME: JOY BERNAL AGE: 79 SEX: M ARRIVES VIA: Ambulance INFORMANT: Patient, ED PROVIDER(S): Noe Kent MD CHIEF COMPLAINT: Weakness, nausea, leg infection PLAN: Disposition: Admit MEDICAL DECISION MAKING: The patient is a pleasant 79-year-old gentleman with a past medical history of A. fib on Coumadin, CHF, CKD who presents emergency department with generalized weakness, nausea, body aches in the setting of being treated outpatient with Keflex for a left lower leg cellulitis over the past week. The patient and his report that they were told to go the emergency department if his symptoms became worse in any way. Tonight they report he was acutely worse. They report mild nausea but no vomiting. Denies cough, chest pain, shortness of breath, diarrhea, urinary symptoms. On arrival the patient is acute on chronically ill- appearing but no acute distress, afebrile stable vital signs. On exam the patient has erythema warmth and tenderness to the left lateral aspect of his c fpc with overlying necrotic eschar. The patient's reports that this has not been improving despite being on antibiotics. EKG demonstrates A. fib without overt acute ischemia. X-ray demonstrates venous congestion with possible mild pulmonary edema. No focal infiltrates per my preliminary review. WBC and platelets within normal limits. H/H 12.9/39.9 within prior range of values. Creatinine 1.8 within prior range of values in the setting of CKD. Troponin 0.018, within normal limits. BNP 10 K without prior values for comparison. Increased from 8K last month. ESR and CRP within normal limits. Plain film of the left lower leg without obvious osseous involvement per my preliminary review. Patient was treated empirically with IV Zosyn and vancomycin for cellulitis with failed outpatient management. The patient and are agreeable with plan for admission. Case was discussed [place]. Guzman, [facility] [place], who will evaluate the patient for admission. Triage Nursing notes reviewed and agree them. Prior medical records reviewed Vital Signs: reviewed and remarkable for hypertension. Differential diagnosis: Infection, dehydration, metabolic abnormality, hypo/hyperglycemia, electrolyte disturbance, anemia, hypoxia, cardiac sources, intracerebral event, toxicologic, neurologic, as well as other pathologies. ER treatment provided: See below. Diagnostics interpreted by me: ECG: Atrial fibrillation, 78 bpm, right bundle branch block, no overt ST elevation or depression, QTC 499, QRS 160. Cardiac Monitoring: An order for continuous cardiac monitoring was placed and demonstrated atrial fibrillation, 70 bpm, no ectopy. Laboratory studies: See below Imaging studies: Chest x-ray: Mild congestive failure no focal infiltrates. X-ray L tib-fib, no overt evidence of osseous involvement. Consultation(s): Case was discussed with Dr. Guzman, [facility] [place], who will evaluate the patient for admission. HPI: The patient is a pleasant 79-year-old gentleman with a past medical history of A. jennifer on Coumadin, CHF, CKD who presents emergency department with generalized weakness, nausea, body aches in the setting of being treated outpatient with Keflex for a left lower leg cellulitis over the past week. The patient and his report that they were told to go the emergency department if his symptoms became worse in any way. Tonight they report he was acutely worse. They report mild nausea but no vomiting. Denies cough, chest pain, shortness of breath, diarrhea, urinary symptoms. ROS: See above HPI for pertinent positives & negatives. A total of 10 systems reviewed and were otherwise negative. PAST MEDICAL HISTORY:See Below PAST SURGICAL HISTORY:See Below FAMILY HISTORY:See Below SOCIAL HISTORY:See Below HOME MEDICATIONS:See Below ALLERGIES:See Below VITALS:See Below PHYSICAL EXAMINATION: GENERAL: Awake, alert, acute on chronically-appearing, in no distress HENT: Normocephalic, atraumatic. Oropharynx unremarkable. EYES: Normal conjunctiva. Sclera non-icteric. NECK: Supple. No nuchal rigidity. FROM. No JVD. RESPIRATORY: Clear to auscultation. CARDIAC: Regular rate, normal rhythm. Extremities warm and well perfused. Pulses equal. ABDOMEN: Soft, non-distended. No tenderness to palpation. No rebound or guarding. No masses. RECTAL: Deferred. MUSCULOSKELETAL: Chest examination reveals no tenderness. The back is sym metrical on inspection without obvious abnormality. There is no CVA tenderness to palpation. No joint edema. LOWER EXTREMITIES: Calves are equal size bilaterally and non-tender. 1+ bilateral lower extremity edema. Lateral aspect of left calf with 10 cm area of erythema and warmth with central 3 cm necrotic eschar. NEURO: Normal sensorium. No sensory or motor deficits noted. SKIN: No rash or jaundice noted. Noe Kent MD Past Med/Surg History Medical History Anemia (Inactive) Anxiety with depression Cardiac ischemia (Inactive) Hearing loss (Inactive) Hypotension (Inactive) Subtherapeutic international normalized ratio (INR) (Inactive) Surgical History H/O hemicolectomy (Resolved) Hx of CABG (Resolved) Family History Mother Hypertension Social History Preferred Language: Sudanese Communication Ability: Effective Contracts Attorney Required: No Beliefs That Will Affect Care: None marital status: Current Living Situation: Spouse Other Information That Helps Us Care for You: No Feels Safe at Home: Yes Safety Concerns: Feels Safe At This Time Smoking Status: Never smoker Tobacco Type: smokeless tobacco ; Hx Alcohol Use: No Hx Substance Use: No Allergies Allergies Allergy/AdvReac Type Severity Reaction Status Date / Time codeine AdvReac Intermediate EMESIS Verified 02/26/20 23:20 Iodinated Contrast Media AdvReac Mild NAUSEA Verified 02/26/20 23:20 Home Meds Home Medications Medication Instructions Recorded Confirmed warfarin 7.5 mg PO 3XWK 10/17/18 02/26/20 thiamine HCl (vitamin B1) 100 mg 100 mg PO BID tab 02/13/19 02/26/20 tablet furosemide 40 mg PO DAILY 02/26/20 02/26/20 insulin degludec [Tresiba 15 units SUBCUT DAILY 02/26/20 02/26/20 FlexTouch U-100] metoprolol succinate 50 mg PO DAILY 02/26/20 02/26/20 warfarin 10 mg PO 3XWK 02/26/20 02/26/20 Previous Rx's Medication Instructions Recorded isosorbide mononitrate 60 mg 60 mg PO DAILY #30 tab 02/12/19 tablet,extended release 24 hr lancets #100 ea 02/12/19 nitroglycerin 400 mcg/spray 1 spray SUBLINGUAL Q5M PRN #4.9 gm 02/12/19 translingual pen needle, diabetic 32 gauge x #100 ea 02/12/19/" aspirin 81 mg tablet,delayed 81 mg PO DAILY #30 tab 02/13/19 release blood sugar diagnostic #100 ea 02/13/19 cholecalciferol (vitamin D3) 125 5,000 unit PO DAILY #30 tab 02/13/19 mcg (5,000 unit) tablet tamsulosin 0.4 mg capsule 0.8 mg PO DAILY #180 cap 04/11/19 atorvastatin 40 mg tablet 40 mg PO HS #90 tab 06/13/19 ipratropium 0.5 mg-albuterol 3 mg 3 ml INHALATION Q4H PRN #180 ml 06/13/19 (2.5 mg base)/3 mL nebulization soln memantine 10 mg tablet 10 mg PO BID #180 tab 06/13/19 nitroglycerin 0.2 mg/hr 1 patch TRANSDERMAL QPM #30 ea 11/19/19 transdermal 24 hour patch tramadol 50 mg tablet 50 mg PO Q6H PRN #30 tab 12/06/19 cephalexin 500 mg capsule 500 mg PO TID #30 cap 02/18/20 ipratropium 20 mcg-albuterol 100 1 puff INHALATION QID PRN #4 gm 02/18/20 mcg/actuation mist for inhalation sertraline 100 mg tablet 100 mg PO DAILY #90 tab 02/18/20 silver sulfadiazine 1 % topical 1 appln TOP DAILY #50 gm 02/18/20 cream Results & Data (ED) Vital Signs Vital Signs - 24 hr 02/26/20 22:23 02/26/20 23:24 Temperature 36.9 C Temperature Source Oral Pulse Rate 68 Pulse Rate [Right Finger] 70 Respiratory Rate 20 14 Blood Pressure 155/78 H Blood Pressure [Right Arm] 144/65 H Blood Pressure Mean 103 Blood Pressure Mean [Right Arm] 91 Pulse Oximetry 96 92 Sepsis Recent Fever Within 48 Hours No Sepsis Action Taken by Nursing No Action Required Laboratory Data Result diagrams: 02/26/20 22:22 02/26/20 22:22 Lab Results 02/26/20 02/26/20 02/26/20 Range/Units 22:22 22:22 22:22 WBC 8.02 (4.8-10.8) K/uL RBC 4.24 L (4.7-6.1) M/uL Hgb 12.9 L (14.0-18.0) g/dL Hct 39.9 L (42-52) % MCV 94.1 (80-100) fL MCH 30.4 (25-34) pg MCHC 32.3 (32-36) g/dL RDW Std Deviation 55.0 H (36.4-46.3) fL RDW Coeff of Marie 15.9 H (11.5-14.5) % Plt Count 200 (130-400) K/uL MPV 10.3 (7.4-10.4) fL Immature Gran % (Auto) 0.2 % Neut % (Auto) 70.7 % Lymph % (Auto) 17.8 % [place] % (Auto) 8.7 % Eos % (Auto) 2.2 % Baso % (Auto) 0.4 % Immature Gran # (Auto) 0.02 (0.00-0.02) K/uL Neut # (Auto) 5.66 (1.4-6.5) K/uL Lymph # (Auto) 1.43 (1.2-3.4) K/uL Carolina # (Auto) 0.70 H (0.11-0.59) K/uL Eos # (Auto) 0.18 (0-0.5) K/uL Baso # (Auto) 0.03 (0-0.2) K/uL Absolute Nucleated RBC 0.00 (0-0) K/uL Nucleated RBC % (auto) 0.0 % ESR 14 (0-14) mm/hr PT 17.4 H (9.0-12.0) Seconds INR 1.7 H (0.9-1.1) APTT 32.0 H (21.0-31.0) Seconds PTT Ratio 1.1 Sodium (136-145) mmol/L Potassium (3.5-5.1) mmol/L Chloride (98-107) mmol/L Carbon Dioxide (21-32) mmol/L Anion Gap (3-11) BUN (7-18) mg/dl Creatinine (0.6-1.4) mg/dl Est Cr Clr Drug Dosing Est GFR ( Amer) Est GFR (Non-Af Amer) BUN/Creatinine Ratio (10-20) Glucose (70-99) mg/dl Lactate (0.4-2.0) mmol/L Calcium (8.5-10.1) mg/dl Phosphorus (2.5-4.9) mg/dl Magnesium (1.8-2.4) mg/dl Total Bilirubin (0.2-1) mg/dl AST (15-37) U/L ALT (12-78) U/L Alkaline Phosphatase (45-117) U/L Troponin I (0-0.045) ng/ml C-Reactive Protein (0-0.29) mg/dl NT-Pro-B Natriuret Pep (0-1800) pg/ml Total Protein (6.4-8.2) gm/dl Albumin (3.4-5.0) gm/dl Globulin (2.5-4.0) gm/dl Albumin/Globulin Ratio (0.9-2) 02/26/20 02/26/20 Range/Units 22:22 23:10 WBC (4.8-10.8) K/uL RBC (4.7-6.1) M/uL Hgb (14.0-18.0) g/dL Hct (42-52) % MCV (80-100) fL MCH (25-34) pg MCHC (32-36) g/dL RDW Std Deviation (36.4-46.3) fL RDW Coeff of Marie (11.5-14.5) % Plt Count (130-400) K/uL MPV (7.4-10.4) fL Immature Gran % (Auto) % Neut % (Auto) % Lymph % (Auto) % [place] % (Auto) % Eos % (Auto) % Baso % (Auto) % Immature Gran # (Auto) (0.00-0.02) K/uL Neut # (Auto) (1.4-6.5) K/uL Lymph # (Auto) (1.2-3.4) K/uL [place] # (Auto) (0.11-0.59) K/uL Eos # (Auto) (0-0.5) K/uL Baso # (Auto) (0-0.2) K/uL Absolute Nucleated RBC (0-0) K/uL Nucleated RBC % (auto) % ESR (0-14) mm/hr PT (9.0-12.0) Seconds INR (0.9-1.1) APTT (21.0-31.0) Seconds PTT Ratio Sodium 137 (136-145) mmol/L Potassium 4.7 (3.5-5.1) mmol/L Chloride 104 (98-107) mmol/L Carbon Dioxide 29 (21-32) mmol/L Anion Gap 5.0 (3-11) BUN 26 H (7-18) mg/dl Creatinine 1.83 H (0.6-1.4) mg/dl Est Cr Clr Drug Dosing Not Reportable Est GFR ( Amer) 39.5 Est GFR (Non-Af Amer) 34.1 BUN/Creatinine Ratio 14.4 (10-20) Glucose 188 H (70-99) mg/dl Lactate 1.1 (0.4-2.0) mmol/L Calcium 8.8 (8.5-10.1) mg/dl Phosphorus 3.4 (2.5-4.9) mg/dl Magnesium 2.1 (1.8-2.4) mg/dl Total Bilirubin 0.6 (0.2-1) mg/dl AST 18 (15-37) U/L ALT 23 (12-78) U/L Alkaline Phosphatase 77 (45-117) U/L Troponin I 0.018 (0-0.045) ng/ml C-Reactive Protein < 0.29 (0-0.29) mg/dl NT-Pro-B Natriuret Pep 31996 H (0-1800) pg/ml Total Protein 6.6 (6.4-8.2) gm/dl Albumin 3.2 L (3.4-5.0) gm/dl Globulin 3.4 (2.5-4.0) gm/dl Albumin/Globulin Ratio 0.9 (0.9-2) Administered Medications Insulin Aspart (Novolog Flexpen) 0 units SC Q6 [facility] Stop: 03/28/20 02:29 Last Admin: 02/27/20 03:07 Dose: Not Given Documented by: [id number] Discontinued Medications Piperacillin Sod/Tazobactam Sod (Zosyn) 4.5 gm in 120 mls @ 240 mls/hr IV NOW ONE Stop: 02/26/20 23:13 Last Infusion: 02/26/20 23:57 Dose: 0 mls/hr Documented by: [id number] Admin: 02/26/20 23:23 Dose: 240 mls/hr Documented by: [id number] Vancomycin HCl 2,500 mg/ (Sodium Chloride) 550 mls @ 200 mls/hr IV NOW ONE Stop: 02/27/20 02:21 Last Infusion: 02/27/20 04:08 Dose: 0 mls/hr Documented by: [id number] Admin: 02/27/20 00:17 Dose: 200 mls/hr Documented by: [id number] Blood Pressure Blood Pressure Findings: Elevated blood pressure Blood Pressure Disposition: further management by hospitalist Discharge Plan Visit Data *Final* Discharge Date/Time: 02/27/20 01:15 Chief Complaint: Illness ED Provider: Noe Kent Discharge Problem: Cellulitis, CHF (congestive heart failure), CKD (chronic kidney disease) stage 3, GFR 30-59 ml/min, Permanent atrial fibrillation Patient Disposition: Admitted As Inpatient Discharge Instructions Interventions: ED Discharge Assessment Last Done: 02/27/20 01:15
[2020-02-27] MEDS ORDERED: CARBOHYDRATES FOR HYPOGLYCEMIA PO PRN (01:54)
[2020-02-27] MEDS ORDERED: VANCOMYCIN CONSULT ACTIVE PRN (01:54)
[2020-02-27] MEDS ORDERED: DEXTROSE 50% 50 ML SYRINGE IV PRN (01:54)
[2020-02-27] MEDS ORDERED: GLUCOSE 10 TABS/TUBE PO PRN (01:54)
[2020-02-27] MEDS ORDERED: GLUCOSE 40% GEL 15 GM TUBE PO PRN (01:54)
[2020-02-27] MEDS ORDERED: ONDANSETRON INJ 2 MG/ML 2 ML VIAL IV PRN (01:54)
[2020-02-27] MEDS ORDERED: GLUCAGON FOR INJ 1 MG VIAL SQ PRN (01:54)
[2020-02-27] MEDS ORDERED: PIPERACILL/TAZOBAC CONSULT ACTIVE PRN (01:54)
[2020-02-27] MEDS ORDERED: Nursing to Pharmacy Communication SCH (02:30)
[2020-02-27] MEDS ORDERED: ALBUT/IPRATROP 3MG/0.5MG NEB 3 ML VIAL NEB PRN (02:57)
--- NOTE | 2020-02-27 03:02 | History & Physical Report ---
Date of Service February 27, 2020 Assessment & Plan (1) Cellulitis of left leg without foot: Cellulitis/ulceration of left leg without foot- Placed on vancomycin IV and Zosyn IV Consult wound care Present on Admission?: Yes (2) Closed left ankle fracture: Trent B closed ankle fracture- As noted, saw Dr. Yovany Herndon from orthopedic surgery on 12/06/2019 in outpatient office. Did not keep follow-up in 1 month as suggested, may have been affected by COVID19 pandemic. We will consult Dr. Herndon to assess. Present on Admission?: Yes (3) Cognitive changes: Cognitive changes/SDAT- Dementia likely aggravated by leg infection Resume medications when patient is awake enough Present on Admission?: Yes (4) Diabetes mellitus type 2, uncontrolled: N.p.o. for now. Hold Tresiba 15 units subcu daily. Placed on Accu-Cheks before meals and at bedtime/every 6 hours with NovoLog coverage Present on Admission?: Yes (5) Hyperlipidemia: For now hold atorvastatin 40 mg at bedtime until taking p.o. Present on Admission?: Yes (6) CAD (coronary artery disease): CAD/hypertension/ischemic cardiomyopathy/permanent atrial fibrillation- Resume warfarin, isosorbide mononitrate, metoprolol succinate and aspirin when patient is able to take p.o. Continue nitroglycerin 0.2 mg/h transdermal 24-hour patch. Present on Admission?: Yes (7) Hypertension: See above Present on Admission?: Yes (8) Ischemic cardiomyopathy: See above Present on Admission?: Yes (9) Permanent atrial fibrillation: See above Present on Admission?: Yes (10) Neurogenic bladder: (11) Anxiety with depression: Anxiety with depression/SDAT- Resume sertraline and memantine when able to take p.o. Present on Admission?: Yes (12) COPD (chronic obstructive pulmonary disease): Placed on duo nebs every 2 hours as needed Present on Admission?: Yes Admission and Anticipated Discharge Date Admission Date: February 27, 2020 History of Present Illness Chief Complaint: The patient presents to the emergency department with altered mental status and worsening left lower extremity cellulitis per his 's re port Primary Care Provider: Jhonathan Pennington, DO The patient is an 79-year-old male with a past medical history including diabetes mellitus type 2, hyperlipidemia, hypertension, neurogenic bladder, ischemic cardiomyopathy, permanent atrial fibrillation, BPH with obstruction, GERD, severe aortic stenosis, COPD, anxiety with depression, peripheral neuropathy, CAD and SDAT. He presents to the emergency department with his 's report of worsening mental status over the past few days, with her reporting that he was saying things that did not make sense. He was seen by Dr. Yovany Herndon on 12/06/2019 in the outpatient office for a Trent B ankle fracture, was given a high tide walking boot, and was to follow-up in 1 month in the outpatient office but did not make it. He was seen on 02/18/2020 by Josefa Flores for mental status changes, and her recommendation was to go to the wound clinic for a left lower extremity wound, which he refused, and he was given Keflex 500 mg 3 times daily and silver sulfadiazine to apply topically, with instructions to return to the office for worsening symptoms. The patient himself is unable to contribute to his review of systems or HPI, and his who is present in the room, acts as primary historian. Allergies Allergy/AdvReac Type Severity Reaction Status Date / Time codeine AdvReac Intermediate EMESIS Verified 02/26/20 23:20 Iodinated Contrast Media AdvReac Mild NAUSEA Verified 02/26/20 23:20 Home Medications Home Medications Medication Instructions Recorded Confirmed Type warfarin 7.5 mg PO 3XWK 10/17/18 02/26/20 History isosorbide mononitrate 60 mg 60 mg PO DAILY #30 tab 02/12/19 02/26/20 Rx tablet,extended release 24 hr lancets #100 ea 02/12/19 02/18/20 Rx nitroglycerin 400 mcg/spray 1 spray SUBLINGUAL Q5M PRN #4.9 gm 02/12/19 02/26/20 Rx translingual pen needle, diabetic 32 gauge x #100 ea 02/12/19 02/18/20 Rx 1/4" aspirin 81 mg tablet,delayed 81 mg PO DAILY #30 tab 02/13/19 02/26/20 Rx release blood sugar diagnostic #100 ea 02/13/19 02/18/20 Rx cholecalciferol (vitamin D3) 125 5,000 unit PO DAILY #30 tab 02/13/19 02/26/20 Rx mcg (5,000 unit) tablet thiamine HCl (vitamin B1) 100 mg 100 mg PO BID tab 02/13/19 02/26/20 History tablet tamsulosin 0.4 mg capsule 0.8 mg PO DAILY #180 cap 04/11/19 02/26/20 Rx atorvastatin 40 mg tablet 40 mg PO HS #90 tab 06/13/19 02/26/20 Rx ipratropium 0.5 mg-albuterol 3 mg 3 ml INHALATION Q4H PRN #180 ml 06/13/19 02/26/20 Rx (2.5 mg base)/3 mL nebulization soln memantine 10 mg tablet 10 mg PO BID #180 tab 06/13/19 02/26/20 Rx nitroglycerin 0.2 mg/hr 1 patch TRANSDERMAL QPM #30 ea 11/19/19 02/26/20 Rx transdermal 24 hour patch tramadol 50 mg tablet 50 mg PO Q6H PRN #30 tab 12/06/19 02/26/20 Rx cephalexin 500 mg capsule 500 mg PO TID #30 cap 02/18/20 02/26/20 Rx ipratropium 20 mcg-albuterol 100 1 puff INHALATION QID PRN #4 gm 02/18/20 02/26/20 Rx mcg/actuation mist for inhalation sertraline 100 mg tablet 100 mg PO DAILY #90 tab 02/18/20 02/26/20 Rx silver sulfadiazine 1 % topical 1 appln TOP DAILY #50 gm 02/18/20 02/26/20 Rx cream furosemide 40 mg PO DAILY 02/26/20 02/26/20 History insulin degludec [Tresiba 15 units SUBCUT DAILY 02/26/20 02/26/20 History FlexTouch U-100] metoprolol succinate 50 mg PO DAILY 02/26/20 02/26/20 History warfarin 10 mg PO 3XWK 02/26/20 02/26/20 History Past Med/Surg History Medical History Anemia (Inactive) Cardiac ischemia (Inactive) Hearing loss (Inactive) Hypotension (Inactive) Subtherapeutic international normalized ratio (INR) (Inactive) Surgical History H/O hemicolectomy (Resolved) Hx of CABG (Resolved) Family History Mother Hypertension Social History Preferred Language: Arabic Communication Ability: Effective Certification And Selection Specialist Required: No Beliefs That Will Affect Care: None marital status: Current Living Situation: Spouse Other Information That Helps Us Care for You: No Feels Safe at Home: Yes Safety Concerns: Feels Safe At This Time Smoking Status: Never smoker Tobacco Type: smokeless tobacco ; Hx Alcohol Use: No Hx Substance Use: No Review of Systems Review of Systems: Unobtainable due to cognitive status Physical Exam Physical Exam: The patient is nonresponsive, normocephalic and atraumatic, lying in bed and in no acute distress. HEENT--PERRL, EOMI, mucous membranes and oropharynx dry. Neck--supple. No JVD. No bruits. Thyroid normal, trachea midline, no adenopathy. Heart--normal S1 and S2. No murmurs, rubs or gallops. Lungs--clear bilaterally, no respiratory distress, no accessory muscle use. Abdomen--normal bowel sounds and soft. Nontender. Nondistended. Obese Extremities--noted bilaterally pretibial 1+ pitting edema. lateral aspect of le ft calf with 10 cm area of erythema and warmth, with 3 cm central necrotic eschar. Dermatologic--see above Neurologic--cranial nerves II through XII grossly intact. Rheumatologic--limited exam Psychiatric--nonresponsive Results & Data Results & Data ([facility]) Vital Signs (Past 12 Hours) Vital Signs Temp Pulse Pulse Resp BP BP Pulse Ox 02/27/20 02:21 68 02/27/20 02:03 98.8 F 73 18 150/75 H 96 02/27/20 01:15 67 27 H 156/91 H 90 02/27/20 00:43 71 12 168/75 H 92 02/27/20 00:17 68 16 142/73 H 94 02/26/20 23:24 70 14 144/65 H 92 02/26/20 22:23 98.4 F 68 20 155/78 H 96 Laboratory Results Laboratory Results WBC 8.02 K/uL (4.8-10.8) 02/26/20 22:22 RBC 4.24 M/uL (4.7-6.1) L 02/26/20 22:22 Hgb 12.9 g/dL (14.0-18.0) L 02/26/20: Hct 39.9 % (42-52) L 02/26/20 22:22 MCV 94.1 fL (80-100) 02/26/20: MCH 30.4 pg (25-34) 02/26/20: MCHC 32.3 g/dL (32-36) 02/26/20: RDW Std Deviation 55.0 fL (36.4-46.3) H 02/26/20: RDW Coeff of Marie 15.9 % (11.5-14.5) H 02/26/20: Plt Count 200 K/uL (130-400) 02/26/20: MPV 10.3 fL (7.4-10.4) 02/26/20: Immature Gran % (Auto) 0.2 % 02/26/20 22: Neut % (Auto) 70.7 % 02/26/20 22:22 Lymph % (Auto) 17.8 % 02/26/20 22:22 Mcleod % (Auto) 8.7 % 02/26/20 22:22 Eos % (Auto) 2.2 % 02/26/20: Baso % (Auto) 0.4 % 02/26/20: Immature Gran # (Auto) 0.02 K/uL (0.00-0.02) 02/26/20: Neut # (Auto) 5.66 K/uL (1.4-6.5) 02/26/20: Lymph # (Auto) 1.43 K/uL (1.2-3.4) 02/26/20: Mcleod # (Auto) 0.70 K/uL (0.11-0.59) H 02/26/20: Eos # (Auto) 0.18 K/uL (0-0.5) 02/26/20:22 Baso # (Auto) 0.03 K/uL (0-0.2) 02/26/20: Absolute Nucleated RBC 0.00 K/uL (0-0) 02/26/20 22:22 Nucleated RBC % (auto) 0.0 % 02/26/20 22:22 ESR 14 mm/hr (0-14) 02/26/20 22:22 PT 17.4 Seconds (9.0-12.0) H 02/26/20 22:22 INR 1.7 (0.9-1.1) H 02/26/20 22:22 APTT 32.0 Seconds (21.0-31.0) H 02/26/20 22:22 PTT Ratio 1.1 02/26/20 22:22 Sodium 137 mmol/L (136-145) 02/26/20 22:22 Potassium 4.7 mmol/L (3.5-5.1) 02/26/20 22:22 Chloride 104 mmol/L (98-107) 02/26/20 22:22 Carbon Dioxide 29 mmol/L (21-32) 02/26/20 22:22 Anion Gap 5.0 (3-11) 02/26/20 22:22 BUN 26 mg/dl (7-18) H 02/26/20 22:22 Creatinine 1.83 mg/dl (0.6-1.4) H 02/26/20 22:22 Est Cr Clr Drug Dosing Not Reportable 02/26/20 22:22 Est GFR ( Amer) 39.5 02/26/20 22:22 Est GFR (Non-Af Amer) 34.1 02/26/20 22:22 BUN/Creatinine Ratio 14.4 (10-20) 02/26/20 22:22 Glucose 188 mg/dl (70-99) H 02/26/20 22:22 POC Glucose 170 mg/dl (70-99) H 02/27/20 01:55 Lactate 1.1 mmol/L (0.4-2.0) 02/26/20 23:10 Calcium 8.8 mg/dl (8.5-10.1) 02/26/20 22:22 Phosphorus 3.4 mg/dl (2.5-4.9) 02/26/20 22:22 Magnesium 2.1 mg/dl (1.8-2.4) 02/26/20 22:22 Total Bilirubin 0.6 mg/dl (0.2-1) 02/26/20 22:22 AST 18 U/L (15-37) 02/26/20 22:22 ALT 23 U/L (12-78) 02/26/20 22:22 Alkaline Phosphatase 77 U/L (45-117) 02/26/20 22:22 Troponin I 0.018 ng/ml (0-0.045) 02/26/20 22:22 C-Reactive Protein < 0.29 mg/dl (0-0.29) 02/26/20 22:22 NT-Pro-B Natriuret Pep 73684 pg/ml (0-1800) H 02/26/20 22:22 Total Protein 6.6 gm/dl (6.4-8.2) 02/26/20 22:22 Albumin 3.2 gm/dl (3.4-5.0) L 02/26/20 22:22 Globulin 3.4 gm/dl (2.5-4.0) 02/26/20 22:22 Albumin/Globulin Ratio 0.9 (0.9-2) 02/26/20 22:22 Code Status & VTE Plan Code Status Full code VTE Prophylaxis Plan VTE Prophylaxis will be ordered: Yes PG Care Time/CCT Total # of Minutes Spent Total Time Spent with Patient: Total time spent is greater than 50% in coordination of care (as documented) at patient's floor/unit and/or counseling patient: Coding Level of Care Code 57041 Initial Inpt Care Lvl 3 Diagnoses Cellulitis of left leg without foot L03.116 Closed left ankle fracture S82.892A Cognitive changes R41.89 Diabetes mellitus type 2, uncontrolled E11.65 Hyperlipidemia E78.5 CAD (coronary artery disease) I25.10 Coronary Disease-Associated Artery/Lesion type: redding artery [place] vs. transplanted heart: redding heart Associated angina: without angina Hypertension I10 Ischemic cardiomyopathy I25.5 Permanent atrial fibrillation I48.2 Neurogenic bladder N31.9 Anxiety with depression F41.8 COPD (chronic obstructive pulmonary disease) J44.9 COPD type: unspecified COPD (1) CAD (coronary artery disease) Coronary Disease-Associated Artery/Lesion type: redding artery [place] vs. transplanted heart: redding heart Associated angina: without angina Qualified Code(s): I25.10 - Atherosclerotic heart disease of redding coronary artery without angina pectoris (2) COPD (chronic obstructive pulmonary disease) COPD type: unspecified COPD Qualified Code(s): J44.9 - Chronic obstructive pulmonary disease, unspecified
[2020-02-27] MEDS: INSULIN ASPART 100 UNITS/ML 3 ML PEN SC SCH ×5 (03:07→20:04)
[2020-02-27 03:29] LABS: Appearance Urine Turbid (Clear); Bacteria Urine Automated 2+ (Negative); Bilirubin Urine Negative (Negative); Blood Urine 2+ (Negative); Cast Urine Automated 0 /lpf (0-5); Color Urine Yellow; Glucose Urine UA Negative (Negative); Ketones Urine Trace (Negative); Leukocyte Esterase Urine 3+ (Negative); Nitrite Urine Positive (Negative); Protein Urine 1+ (Negative); Specific Gravity Urine 1.015 (1.000-1.030); Urobilinogen Urine Negative (Negative); WBC Urine Automated >30 /hpf (0-5); pH Urine 5.5 (4.5-7.5)
[2020-02-27] MEDS ORDERED: PIPERACILLIN/TAZOBACTAM 3.375 GM in DEXTROSE 5% 100 ML IV SCH (06:00)
--- NOTE | 2020-02-27 06:30 | XRay Report ---
XR tibia fibula LT 2V CLINICAL HISTORY: cellulitis/ulcer / exclude osseous involvement COMPARISON: 12/05/2019 DISCUSSION: Healing fracture distal fibula. No acute bony abnormality. Mild soft tissue edema. IMPRESSION: 1. Nonspecific soft tissue edema. No acute bony abnormality. Healing fracture distal fibula. ACT 112: Negative or not required by law. The above report was generated using voice recognition software. It may contain grammatical, syntax or spelling errors. Electronically signed by: Richard Guardado M.D. 02/27/2020 6:29 AM
--- NOTE | 2020-02-27 06:48 | XRay Report ---
XR chest 1V portable CLINICAL HISTORY: SEPSIS dyspnea COMPARISON STUDY: 02/10/2019 FINDINGS: Moderate cardiomegaly. Central catheter in superior vena cava. Prominent pulmonary vasculature. Chronic pleural reactive changes right base and peripheral aspect ri ght mid lung. Prominent pulmonary vasculature. IMPRESSION: Developing congestive failure. Chronic pleural and parenchymal reactive change right mid and lower lung. ACT 112: Negative or not required by law. The above report was generated using voice recognition software. It may contain grammatical, syntax or spelling errors. Electronically signed by: Richard Guardado M.D. 02/27/2020 6:47 AM
[2020-02-27 07:17] LABS: Estimated Average Glucose 171 mg/dl; Hemoglobin A1C 7.6 % (4.5-5.6)
--- NOTE | 2020-02-27 09:09 | Pharmacy Report ---
Pharmacy Abx Initial Consult - Date of Service February 27, 2020 - Pharmacy Dosing Scope Date of Consult: [] Consultation requested by: [] Pharmacy is consulted to initiate [] IV/PO dosing therapy, order appropriate labs and adjust drug dose/frequency. - Subjective The patient is a 79 year old M admitted on 02/27/20 00:17. - Objective Height: 5 ft 11 in Weight: 120 kg Vital Signs (Past 12hrs): Vital Signs Temp Pulse Pulse Resp BP BP BP 02/27/20 07:21 49 L 18 159/79 H 02/27/20 02:21 68 02/27/20 02:03 37.1 C 73 18 150/75 H 02/27/20 01:15 67 27 H 156/91 H 02/27/20 00:43 71 12 168/75 H 02/27/20 00:17 68 16 142/73 H 02/26/20 23:24 70 14 144/65 H 02/26/20 22:23 36.9 C 68 20 155/78 H Pulse Ox 02/27/20 07:21 93 02/27/20 02:21 02/27/20 02:03 96 02/27/20 01:15 90 02/27/20 00:43 92 02/27/20 00:17 94 02/26/20 23:24 92 02/26/20 22:23 96 Lab Results (24hrs): Laboratory Tests (24 Hours) 02/26/20 02/26/20 02/26/20 22:22 22:22 22:22 WBC 8.02 Neut # (Auto) 5.66 ESR 14 Creatinine 1.83 H Est Cr Clr Drug Dosing Not Reportable C-Reactive Protein < 0.29 Micro Results: 02/26/20 23:19 Aerobic Blood Culture - Pending Blood Anaerobic Blood Culture - Pending 02/26/20 23:10 Aerobic Blood Culture - Pending Blood Anaerobic Blood Culture - Pending - Risk Factors for Resistance * Antimicrobial use within the last 90 days (Keflex) - Assessment & Plan Assessment 79 year old M admitted with worsening mental status. Possible lower extremity cellulitis. Plan vancomycin/Zosyn for treatment of cellulitis Vancomycin IV * Estimated PK Parameters: Vd 0.6 L/kg, Karthik 0.039 hr-1, t1/2 17.8 hr * Loading dose: 2500 mg (20.9 mg/kg) * Maintenance dose: 1500 mg IV (12.5 mg/kg) every 18 hours * Goal trough level for cellulitis : ~15 mcg/mL * Trough ordered for 02/28/20 (prior to steady state to ensure no problems with accumulation) * A less than traditional dose and extended dosing interval have been selected due to likelihood of drug accumulation in obese patient and patient with h/o CKD. Piperacillin/tazobactam * 4.5 g bolus administered over 30 minutes, then 4.5 g IV extended infusion every 8 hours for CrCl greater than 20 mL/min * Aggressive dosing selected due to BMI 35 or more. Pharmacy will continue to follow and will adjust dose/frequency as necessary. Thank you.
--- NOTE | 2020-02-27 09:53 | Hospitalist Progress Note ---
Date of Service February 27, 2020 Assessment & Plan (1) Cellulitis of left leg without foot: Mr. Betancourt is an 79-year-old male with a past medical history of type 2 diabetes on insulin, hyperlipidemia, hypertension, neurogenic bladder, permanent A. fib, CAD with ischemic cardiomyopathy, BPH with luts, severe , senile Alzheimer dementia, anxiety depression who presented with several days of worsened altered mental status and concern for left lower extremity infection. Left lower extremity cellulitis - Seen 02/17 by PCP for AMS, recommended wound clinic due to LE cellulitis. Pt refused, tx with keflex. Did not improve with Keflex 500 mg 3 times daily outpatient therapy Received Zosyn/Vanco on admit, Vanco discontinued - Convert to doxy 100mg BID Grade 2 ulceration at medial L calf, tender to palpation but improved from prior per pt. No leukocytosis, patient without fever/chills/sweats Patient reports he is not normally oriented to date, he is oriented to place and name at time of exam Recommend wound care VICTORIANO on CKD Baseline creatinine approximately 1.5 with GFR 3040 Acutely elevated to 1.8 Patient appears clinically volume overloaded, BNP 10 K (last 38K) Echo 2017 with EF 50-55%, x-ray shows developing congestive failure - Repeat ECHO - Follow UOP - BMP tomorrow, resume lasix if improved L Closed Trent B Ankle Fracture - Seen by Ortho 12/05 - Missed 1mo follow up. Dr. Herndon consulted by admitting team for f/u AMS, improved - Patient with senile Alzheimer dementia, cared for by his at home - Pt reports not normally oriented to date - Answers questions appropriately, follows 2 step commands - Suspect worsened 2/2 acute LLE cellulitis tx as above - Bedside swallow passed T2DM - A1C 7.6% - BSG 188-139 overnight - Held EMANATIONS ANALYSIS TECHNICIAN insulin degludec - Aspart sliding scale 100-150, 1:10, CF 25 with checks AC/HS or Q6H if NPO - Pt not on RASHAD EMANATIONS ANALYSIS TECHNICIAN CAD, ischemic cardiomyopathy - Pt denies chest pain, CP, SoB - BNP 10K, last 3-8K - Clinically appears volume overloaded with CKD - ASA 81mg daily - EMANATIONS ANALYSIS TECHNICIAN lasix 40mg held for VICTORIANO - Repeat echo as above Afib - Warfarin 7.5mg 3xpw 10mg 3xpw - EMANATIONS ANALYSIS TECHNICIAN Isosorbide Mononitrate 60mg daily held on admit. Resume. - EMANATIONS ANALYSIS TECHNICIAN MTP succinate 50mg daily held on admit. Resume. - EMANATIONS ANALYSIS TECHNICIAN Nitro 0.2 mg/hr Q24H TD held on admit. HLD - Atorvastatin 40mg daily FEN/GI: HH/T2DM diet. DVT PPx: On warfarin as above Code Status: Full Code (2) Cognitive changes: (3) Ulceration: (4) Emphysema of lung: (5) Diabetes mellitus type 2, uncontrolled: (6) Hyperlipidemia: (7) Hypertension: (8) Neurogenic bladder: (9) Port-A-Cath in place: (10) BPH loc w urin obs/LUTS: (11) Severe aortic stenosis: (12) CKD (chronic kidney disease) stage 3, GFR 30-59 ml/min: (13) GERD (gastroesophageal reflux disease): (14) Permanent atrial fibrillation: (15) Ischemic cardiomyopathy: Admission and Anticipated Discharge Date Admission Date: February 27, 2020 Supervising Physician Co-Signing Physician Notes Patient seen and examined with PGY-2 Dr. Hayes. Agree with history, exam findings, assessment and plan of care as outlined with the following updates: In brief, Mr. Townsend is an 79 year old male iwth history of DM, CAD, ischemic cardiomyopathy, HTN, Afib, COPD, CKD, dementia, anxiety/depression admitted with altered mental status likely secondary to cellulitis on the left lower leg after failed outpatient treatment with keflex. ED course and admission H&P reviewed. Today, he does have some discomfort in the back of the left leg if someone touches it. He is hungry and wanting to eat. Denies malaise, fevers, nausea, vomiting. Passed bedside swallow this morning. VS, labs, imaging and nursing notes reviewed. Nontoxic appearing. Oriented to place and person. Left calf with erythema, stage 2 pressure ulcer. Nontender. Dressing over the ulcer area. Bilateral pedal edema. 1. left leg cellulitis, failed outpatient keflex. ?secondary to friction from CAM boot. Will continue with zosyn x 24 hours and switch to PO doxy for strep and staph coverage. 2. Dirty UA. Urine culture not sent. Received zosyn on admission. Will cover regardless. 3. delirium 2/2 to infection, now resolved. 4. L fibula fracture, [place]. Tib-fib radiographs on admission show healing distal fibula fracture. 5. DM. holding home insulin. sliding scale. A1C 7.6 on admission. 6. CAD/ischemic cardiomyopathy. ?exacerbation with increased edema in the legs and elevated BNP on admission, CXR with mild vascular congestion. Repeat Echo. Resume home medications. 7. Atrial fibrillation. Rate controlled. Resume home metoprolol. AC with coumadin. INR 1.7 after last night doses is held. Resume home coumadin dosing and follow INR. 8. Anxiety/depression/dementia. Resume home sertraline and memantine. 8. CKD. Baseline Cr ~1.5. Cr 1.8 today. Renally dosing medications. Dispo: pending clinical improvement. Subjective Mr. Pandey is seen at the bedside this morning. He is sleeping, but easily aroused. Responds to questions appropriately. He reports he does not normally know the date, and is not aware of what the date is but is oriented to place and name. He reports he feels "fine" but is "very hungry ". He denies any pain at rest, but notes he has a "black spot" on his left calf that is tender to the touch and which does not feel any different from normal. He denies chest pressure, shortness of breath, fevers, chills, sweats overnight. He reports he has some abdominal discomfort from being hungry, but denies pain or nausea. He would like to eat, no other questions or concerns at time of bedside visit. Review of Systems Review of Systems: Constitutional: Denies fever, chills Eyes: Denies Acute vision change ENT: DeniesEar pain, sore throat Cardiovascular: Denies Chest pain, chest pressure, palpitations. Endorses chronic lower extremity swelling Respiratory: Denies shortness of breath, cough, sputum production, difficulty breathing Gastrointestinal: Denies abdominal pain, nausea, vomiting. Endorses hunger. Genitourinary: Denies pain with urination, urinary urgency, urinary frequency Musculoskeletal: Denies Acute weakness, muscle aches/pain, joint aches/pain, But endorses some global fatigue Integumentary:Endorses a "black spot "on his left calf. Denies other acute lesions, rash, and skin changes Neurological: Denies headache, focal weakness Physical Exam Physical Exam: General: Alert and oriented to name and place only. Not oriented to date. Follows two-step commands. NAD. Cooperative. HEENT: Atraumatic, normocephalic.Visual acuity grossly intact. Pupils equal. Pulm: Bibasilar crackles. Symmetrical chest rise. No increase work of breathing. No respiratory distress. Cardiac: Irregularly irregular, -mrg. Radial pulses intact and symmetrical. Abdominal: Obese,Nontender, soft. BS present Extremities: Left lower extremity with grade 2 pressure ulcer on posterior medial calf covered with wound dressing. Mild surrounding erythema, tender to palpation. Trace bilateral edema. PT pulses intact to palpation and symmetrical. No right lower extremity erythema/tenderness to palpation. Results & Data Results & Data ([facility]) Vital Signs (Past 12 Hours) Vital Signs Temp Pulse Pulse Resp BP BP BP 02/27/20 07:21 49 L 18 159/79 H 02/27/20 02:21 68 02/27/20 02:03 37.1 C 73 18 150/75 H 02/27/20 01:15 67 27 H 156/91 H 02/27/20 00:43 71 12 168/75 H 02/27/20 00:17 68 16 142/73 H 02/26/20 23:24 70 14 144/65 H 02/26/20 22:23 36.9 C 68 20 155/78 H Pulse Ox 02/27/20 07:21 93 02/27/20 02:21 02/27/20 02:03 96 02/27/20 01:15 90 02/27/20 00:43 92 02/27/20 00:17 94 02/26/20 23:24 92 02/26/20 22:23 96 Resident Activity Tracking Resident Involvement: Resident Care Provided Care Provided: Adult [facility]
[2020-02-27] MEDS ORDERED: IPRATROPIUM BROMIDE/ALBUTEROL respimat INH INH PRN (12:47)
[2020-02-27] MEDS ORDERED: ALBUT/IPRATROP 3MG/0.5MG NEB 3 ML VIAL INH PRN (12:52)
[2020-02-27] MEDS ORDERED: WARFARIN SOD 5 MG TAB PO SCH (13:00)
[2020-02-27] MEDS ORDERED: PIPERACILLIN/TAZOBACTAM 4.5 GM in DEXTROSE 5% 100 ML IV SCH (14:00)
--- NOTE | 2020-02-27 14:15 | XCELERA ---
[id number]
[2020-02-27] MEDS: DOXYCYCLINE HYCLATE 100 MG CAP PO SCH ×2 (14:17→20:05)
[2020-02-27] MEDS: ISOSORBIDE MONO EXTENDED REL 60 MG TABCR PO SCH (14:17)
[2020-02-27] MEDS: METOPROLOL SUCC 50MG EXT REL TAB PO SCH (14:17)
--- NOTE | 2020-02-27 14:36 | Orthopedic Consultation ---
Date of Consultation February 27, 2020 Assessment & Plan (1) Closed left ankle fracture: He was seen examined by Dr. Herndon today as well. At this point he is now 2-1/2 months status post a stable ankle fracture. He no longer needs any immobilization including a cast or boot. He can weight-bear as tolerated. No further intervention needed for his ankle. Wound care has been consulted for the left calf area. Present on Admission?: Yes History of Present Illness Reason for Consultation: History of left ankle fracture Attending Physician: Calista Rizo, DO History of Present Illness Mr. Townsend is a 79-year-old diabetic male admitted for a wound and cellulitis of his left lower extremity. He is approximately 2 and half months status post stable Trent B distal fibula fracture of the left ankle which he was seen in clinic for December 06, [address] Herndon and placed in a high tide walking boot. We have not seen him since his he did not return for follow-up appointment. He was admitted yesterday with cellulitis and a wound of the left calf area. He states he got this wound from the boot. He denies any ankle pain. He has been ambulating. He said he threw the boot away and obviously has not been wearing it at this point. Allergies Allergy/AdvReac Type Severity Reaction Status Date / Time codeine AdvReac Intermediate EMESIS Verified 02/26/20 23:20 Iodinated Contrast Media AdvReac Mild NAUSEA Verified 02/26/20 23:20 Home Medications Home Medications Medication Instructions Recorded Confirmed Type warfarin 7.5 mg PO 3XWK 10/17/18 02/26/20 History isosorbide mononitrate 60 mg 60 mg PO DAILY #30 tab 02/12/19 02/26/20 Rx tablet,extended release 24 hr lancets #100 ea 02/12/19 02/18/20 Rx nitroglycerin 400 mcg/spray 1 spray SUBLINGUAL Q5M PRN #4.9 gm 02/12/19 02/26/20 Rx translingual pen needle, diabetic 32 gauge x #100 ea 02/12/19 02/18/20 Rx 1/4" aspirin 81 mg tablet,delayed 81 mg PO DAILY #30 tab 02/13/19 02/26/20 Rx release blood sugar diagnostic #100 ea 06/04/19 06/08/20 Rx cholecalciferol (vitamin D3) 125 5,000 unit PO DAILY #30 tab 02/13/19 02/26/20 Rx mcg (5,000 unit) tablet thiamine HCl (vitamin B1) 100 mg 100 mg PO BID tab 02/13/19 02/26/20 History tablet tamsulosin 0.4 mg capsule 0.8 mg PO DAILY #180 cap 04/11/19 02/26/20 Rx atorvastatin 40 mg tablet 40 mg PO HS #90 tab 06/13/19 02/26/20 Rx ipratropium 0.5 mg-albuterol 3 mg 3 ml INHALATION Q4H PRN #180 ml 06/13/19 02/26/20 Rx (2.5 mg base)/3 mL nebulization soln memantine 10 mg tablet 10 mg PO BID #180 tab 06/13/19 02/26/20 Rx nitroglycerin 0.2 mg/hr 1 patch TRANSDERMAL QPM #30 ea 11/19/19 02/26/20 Rx transdermal 24 hour patch tramadol 50 mg tablet 50 mg PO Q6H PRN #30 tab 12/06/19 02/26/20 Rx cephalexin 500 mg capsule 500 mg PO TID #30 cap 02/18/20 02/26/20 Rx ipratropium 20 mcg-albuterol 100 1 puff INHALATION QID PRN #4 gm 02/18/20 02/26/20 Rx mcg/actuation mist for inhalation sertraline 100 mg tablet 100 mg PO DAILY #90 tab 02/18/20 02/26/20 Rx silver sulfadiazine 1 % topical 1 appln TOP DAILY #50 gm 02/18/20 02/26/20 Rx cream furosemide 40 mg PO DAILY 02/26/20 02/26/20 History insulin degludec [Tresiba 15 units SUBCUT DAILY 02/26/20 02/26/20 History FlexTouch U-100] metoprolol succinate 50 mg PO DAILY 02/26/20 02/26/20 History warfarin 10 mg PO 3XWK 02/26/20 02/26/20 History Patient History Medical History Anemia (Inactive) Anxiety with depression Cardiac ischemia (Inactive) Hearing loss (Inactive) Hypotension (Inactive) Subtherapeutic international normalized ratio (INR) (Inactive) Surgical History H/O hemicolectomy (Resolved) Hx of CABG (Resolved) Family History Mother Hypertension Social History Preferred Language: Latvian Communication Ability: Effective Manager New Product Required: No Beliefs That Will Affect Care: None marital status: Current Living Situation: Spouse Other Information That Helps Us Care for You: No Feels Safe at Home: Yes Safety Concerns: Feels Safe At This Time Smoking Status: Never smoker Tobacco Type: smokeless tobacco ; Hx Alcohol Use: No Hx Substance Use: No Review of Systems Musculoskeletal: as per Subjective / HPI Physical Exam Physical Exam: He was sleeping today when we saw him but we were able to wake him up. He is in no distress. On exam of the left lower extremity, he has a dressing on the calf area with eschar area and some erythema. It is tender to palpation. He has no tenderness around his ankle on the medial or lateral side. No significant swelling to the ankle. Skin is intact around the ankle. He can dorsiflex and plantarflex appropriately. Results & Data ([facility]) Vital Signs (Past 12 Hours) Vital Signs Temp Pulse Resp BP Pulse Ox 02/27/20 11:33 36.4 C L 58 L 18 164/64 H 91 02/27/20 07:21 49 L 18 159/79 H 93 Diagnostic Findings X-rays were reviewed of his tib-fib taken here in the hospital which shows the fibula fracture to be well-healed at this point. Ankle mortise is well aligned. PG Care Time/CCT Total # of Minutes Spent Total Time Spent with Patient: Total time spent is greater than 50% in coordination of care (as documented) at patient's floor/unit and/or counseling patient: Coding Level of Care Code None Diagnoses Closed left ankle fracture S82.892A
--- NOTE | 2020-02-27 15:24 | Electrocardiogram Report ---
Test Reason : Blood Pressure : / mmHG Vent. Rate : 078 BPM Atrial Rate : 089 BPM P-R Int : 000 ms QRS Dur : 160 ms QT Int : 438 ms P-R-T Axes : 000 135 -05 degrees QTc Int : 499 ms Atrial fibrillation Right bundle branch block Inferior infarct (cited on or before 26-OCT-2016) Abnormal ECG When compared with ECG of 10-FEB-2019 06:54, T wave inversion now evident in Inferior leads Confirmed by Liam Velasco ([id number]) on 02/27/2020 3:24:07 PM Referred By: REFERRED SELF Confirmed By:Uli Velasco
[2020-02-27] MEDS ORDERED: WARFARIN SOD 10 MG TAB PO SCH (16:00)
[2020-02-27] MEDS ORDERED: VANCOMYCIN HCL 1,500 MG in SODIUM CHLORIDE 0.9% 500 ML IV SCH (18:00)
[2020-02-27] MEDS: ATORVASTATIN 40 MG TAB PO SCH (20:03)
[2020-02-27] MEDS: MEMANTINE HCL 10 MG TAB PO SCH (20:03)
[2020-02-28] MEDS ORDERED: MELATONIN 3 MG TAB PO PRN ×2 (00:25→18:11)
[2020-02-28 06:38] LABS: Basophils # (auto) 0.05 K/uL (0-0.2); Basophils % (auto) 0.7 %; Eosinophils # (auto) 0.18 K/uL (0-0.5); Eosinophils % (auto) 2.4 %; Hematocrit (blood only) 36.4 % (42-52); Hemoglobin 11.6 g/dL (14.0-18.0); Immature Granulocytes # (auto) 0.02 K/uL (0.00-0.02); Immature Granulocytes % (auto) 0.3 %; Lymphocytes # (auto) 1.33 K/uL (1.2-3.4); Lymphocytes % (auto) 17.5 %; Mean Corpuscular Hemoglobin 30.4 pg (25-34); Mean Corpuscular Hgb Conc 31.9 g/dL (32-36); Mean Corpuscular Volume 95.5 fL (80-100); Mean Platelet Volume 10.1 fL (7.4-10.4); Monocytes # (auto) 0.52 K/uL (0.11-0.59); Monocytes % (auto) 6.9 %; Neutrophils # (auto) 5.48 K/uL (1.4-6.5); Neutrophils % (auto) 72.2 %; Platelet Count 186 K/uL (130-400); RDW Coefficient of Variation 15.8 % (11.5-14.5); Red Blood Count 3.81 M/uL (4.7-6.1); White Blood Count 7.58 K/uL (4.8-10.8)
[2020-02-28 07:06] LABS: BUN Creatinine Ratio 14.8 (10-20); Calcium 8.6 mg/dl (8.5-10.1); Creatinine Clr Calc Pharmacy 46.1 ml/min; Est GFR (African American) 43.8; Est GFR (Non-African American) 37.8; Potassium 4.3 mmol/L (3.5-5.1)
[2020-02-28 07:39] LABS: INR 1.6 (0.9-1.1); Prothrombin Time 16.8 Seconds (9.0-12.0)
[2020-02-28] MEDS: ASPIRIN 81 MG ECTAB PO SCH (08:44)
[2020-02-28] MEDS: MEMANTINE HCL 10 MG TAB PO SCH ×2 (08:45→20:36)
[2020-02-28] MEDS: DOXYCYCLINE HYCLATE 100 MG CAP PO SCH ×2 (08:45→20:35)
[2020-02-28] MEDS: METOPROLOL SUCC 50MG EXT REL TAB PO SCH (08:45)
[2020-02-28] MEDS: ISOSORBIDE MONO EXTENDED REL 60 MG TABCR PO SCH (08:45)
[2020-02-28] MEDS: SERTRALINE HCL 100 MG TABLET PO SCH (08:45)
[2020-02-28] MEDS: INSULIN ASPART 100 UNITS/ML 3 ML PEN SC SCH ×4 (08:46→20:37)
--- NOTE | 2020-02-28 11:00 | Discharge Summary ---
Date of Service February 29, 2020 Admission HPI Per Admitting Provider The patient is an 79-year-old male with a past medical history including diabetes mellitus type 2, hyperlipidemia, hypertension, neurogenic bladder, ischemic cardiomyopathy, permanent atrial fibrillation, BPH with obstruction, GERD, severe aortic stenosis, COPD, anxiety with depression, peripheral neuropathy, CAD and SDAT. He presents to the emergency department with his 's report of worsening mental status over the past few days, with her reporting that he was saying things that did not make sense. He was seen by Dr. Yovany Herndon on 12/06/2019 in the outpatient office for a Trent B ankle fracture, was given a high tide walking boot, and was to follow-up in 1 month in the outpatient office but did not make it. He was seen on 02/18/2020 by Josefa Flores for mental status changes, and her recommendation was to go to the wound clinic for a left lower extremity wound, which he refused, and he was given Keflex 500 mg 3 times daily and silver sulfadiazine to apply topically, with instructions to return to the office for worsening symptoms. The patient himself is unable to contribute to his review of systems or HPI, and his who is present in the room, acts as primary historian. Admission Exam Per Admitting Provider The patient is nonresponsive, normocephalic and atraumatic, lying in bed and in no acute distress. HEENT--PERRL, EOMI, mucous membranes and oropharynx dry. Neck--supple. No JVD. No bruits. Thyroid normal, trachea midline, no adenopathy. Heart--normal S1 and S2. No murmurs, rubs or gallops. Lungs--clear bilaterally, no respiratory distress, no accessory muscle use. Abdomen--normal bowel sounds and soft. Nontender. Nondistended. Obese Extremities--noted bilaterally pretibial 1+ pitting edema. lateral aspect of left calf with 10 cm area of erythema and warmth, with 3 cm central necrotic eschar. Dermatologic--see above Neurologic--cranial nerves II through XII grossly intact. Rheumatologic--limited exam Psychiatric--nonresponsive Principal Diagnosis Cellulitis, Deconditioning Discharge Exam General: A&Ox3. Follows two-step commands. NAD. Cooperative. HEENT: Atraumatic, normocephalic.Visual acuity grossly intact. Pupils equal. Pulm: CTAB -wheezes/rales. Symmetrical chest rise. No increased work of breathing. No respiratory distress. Cardiac: Irregularly irregular, -mrg. Radial pulses intact and symmetrical. Abdominal: Obese,Nontender, soft. BS present Extremities: Left lower extremity with grade 2 pressure ulcer on posterior medial calf covered with wound dressing. Minimal erythema, non-tender to palpation. Trace bilateral ankle edema. PT pulses intact to palpation and symmetrical. No right lower extremity erythema/tenderness to palpation. Discharge Data Allergies Allergy/AdvReac Type Severity Reaction Status Date / Time codeine AdvReac Intermediate EMESIS Verified 02/26/20 23:20 Iodinated Contrast Media AdvReac Mild NAUSEA Verified 02/26/20 23:20 Consultations 02/26/20 23:37 ED Decision to Admit Stat 02/27/20 01:54 Consult Case Management - Discharge Planning Routine 02/27/20 03:00 Consult Orthopedic Surgery Routine Hospital Course (1) Cellulitis of left leg without foot: Mr. Townsend is an 79-year-old male with a past medical history of type 2 diabetes on insulin, hyperlipidemia, hypertension, neurogenic bladder, permanent A. fib, CAD with ischemic cardiomyopathy, BPH with luts, severe , senile Alzheimer dementia, anxiety depression who presented with several days of worsened altered mental status and concern for left lower extremity infection. To do as outpatient: 1. Repeat BMP, follow kidney function and resume Lasix as appropriate 03/03 2. Consider cardiology eval when symptomatic of aortic stenosis 3. Repeat INR 03/03 Left lower extremity cellulitis Mr. Townsend was admitted with worsened mental status with left lower extremity erythema and pain concerning for acute cellulitis which did not improve after 3 days of outpatient Keflex. He has a grade 2 ulceration at the medial left calf which was tender to palpation and had surrounding warm erythema. He was treated with Zosyn/vancomycin on admission, and was narrowed to doxycycline after clinically improving. He continued to improve over the next day with minimal residual erythema and improved tenderness on day of discharge. He had no leukocytosis, and did not experience any fever/chills/sweats during admission. He was discharged to complete a 10-day course of antibiotics with doxycycline with follow-up to his primary care provider. Deconditioning Patient was seen by physical therapy and Occupational Therapy during admission. Her concerns were deconditioning and chronic strength loss worsened by a recent ankle fracture and his admission infection. Rehab services recommended he be transferred for inpatient rehab. Patient adamantly refused this. Standing go test was performed, patient was able to stand but had unsteady gait was not able to independently walk 20 feet and back. This was discussed at length with patient, emphasized that he was not safe to return directly home and that if he were to return directly home he was at high risk of falling which could cause serious, functionally limiting, or even fatal injury. Patient verbalized the risks and benefits of returning home without rehab and as they applied to him in his condition, but continued to adamantly refuse discharge to any rehab facility, emphasizing "There is no fucking way I am going to rehab." Discussed with case management, patient was set up with home health services as an alternative option although it was stressed that this was not the medically recommended option. He was discharged to continue home health services. VICTORIANO on CKD Mr. Townsend has a history of CKD with baseline creatinine with a baseline creatinine of approximately 1.5 with GFR approximately 50. His creatinine was acutely elevated to 1.8 with his GFR reduced to approximately 30-40. He also appeared clinically volume overloaded with a BNP of 10 K. His Lasix was held and he was treated conservatively gentle oral hydration and repeat echo. His echo showed slight interval worsening over the last 2 years of his EF from 55- 50% to 45-50% and slight worsening of mild to moderate aortic stenosis to moderate to severe aortic stenosis. His creatinine was downtrending on day of discharge and was near baseline, this was discussed with the patient. After shared decision making patient preferred discharge with follow-up creatinine check day after discharge with an appointment to his PCP. A appointment within 24 hours was scheduled and he was provided a prescription for lab work/BMP. His Lasix was held at discharge with instructions to discuss with his PCP when it is appropriate to resume. L Closed Trent B Ankle Fracture Mr. Townsend had experienced a left closed Trent B ankle fracture for which she was seen by Ortho on 12/05 and was placed in a walking boot. He missed his 1 month follow-up due to COVID concerns, Dr. Herndon was consulted on patient's admission and saw him during admission. They noted that he was healing and doing well, they recommended he was able to weight-bear as tolerated and no longer required a walking boot or further follow-up. Discal therapy was con sulted to assess patient given his recent ankle fracture and acute illness. AMS, improved Mr. Townsend has baseline senile Alzheimer dementia which was thought to of worsened in the setting of cellulitis. Following antibiotic treatment as above his mental status improved and he returned to his normal cognitive baseline. He reports he is not normally oriented to date, but was otherwise oriented i ncluding to year on day of discharge. Due to altered mental status he was initially n.p.o. on admission but was able to pass bedside swallow eval. T2DM He has a history of type 2 diabetes mellitus on insulin. A1c was 7.6% on admission. He was converted to aspart sliding scale and maintained adequate glycemic control approximately [id number] during admission. He was noted to not be on an RASHAD. This was not started given his VICTORIANO, but he was encouraged to discuss this with his primary care provider regarding whether it would be appropriate for his diabetes/cardiomyopathy. CAD, ischemic cardiomyopathy Mr. Townsend has a history of coronary artery disease with ischemic cardiomyopathy. His BNP was elevated to 10 K compared to prior 3AK and he appeared mildly volume overloaded. His aspirin was held. His prior to admission Lasix was held in the setting of VICTORIANO and he did not experience overt congestive heart failure during admission. His creatinine was trending back to normal, he was scheduled for a repeat BMP with close follow-up to his primary care provider for resumption of Lasix as outpatient. A repeat echo performed during admission showed mild interval decrease in his ejection fraction and slight worsening of his aortic stenosis compared to 2018. He was encouraged to discuss this with his primary care physician. He noted that he was able to walk across the room to the bathroom without severe shortness of breath or exercise limitation, he will discuss potential referral for aortic stenosis to a fiberglass model maker with his PCP should he develop or have worsening symptoms of aortic stenosis Afib Mr. Townsend has a history of permanent A. fib on warfarin anticoagulation. Due to hypotension his isosorbide, metoprolol, and nitro were initially held on admission. His blood pressure improved with treatment as above and his isosorbide and metoprolol were resumed. His warfarin was continued during admission. He resumed his normal prior to admission medications on discharge. HLD He was continued on atorvastatin 40mg daily Total Time Total Time Spent Total Time Spent (In Minutes): See Attending Documentation Discharge Plan Discharge Items Patient Disposition: Home - Home Health Services Reason For Visit: LE CELLULITIS, ALTERED MENTATION Discharge Diagnosis: LLE Cellulitis with Altered Mental Status Activity: Resume your previous activity Non-emergency contact: Primary Care Provider Call non-emergency contact if: you have any medication questions Follow-up/Referrals: Jhonathan Pennington, DO [Primary Care Provider] - 03/05/20 11:30 am (You have an appt with Dr. Cazares on March 05, at 1130am. Please arrive 15 minutes prior to your appt time. If this appt does not fit your schedule please call [phone] to reschedule. Please remember to bring your mask with you. ) Diet: Heart Healthy Addtl Attending Provider Instructions: You were seen in the hospital for a left lower leg infection which likely also caused an increase in confusion. You were treated with antibiotics and improved. You have been continued on antibiotics as below. You have had appointments made as below. Been prescribed an antibiotic, doxycycline. Please take doxycycline 100 mg twice daily for 8 days to complete a total 10-day course including antibiotics received in the hospital. Doxycycline may cause your stomach to be irritated, please take this medication with food and a full glass of water. It may also make your skin more sensitive to sunlight/sunburn, please avoid prolonged direct sunlight while taking this medication. You had a mild kidney injury with increased kidney numbers during your admission. This was improving, and was near but not yet at your normal baseline at time of discharge. You have been provided with a prescription for lab work (a basic metabolic panel and INR) to recheck your kidney function and warfarin level. Please have this drawn on Saturday 03/03. This will be discussed with you further by your primary care provider. An appointment is being made for you you with your primary care physician Jhonathan Pennington. If you do not hear confirmation of this appointment within 48 hours please please call their office at [phone]. If you develop any new or worsening symptoms including fever, chills, sweats, chest pain, chest pressure, difficulty breathing, uncontrolled nausea/vomiting, rash, wheezing, passing out or nearly passing out, bleeding, black/bloody bowel movements, or other new or concerning symptoms please call your primary care physician at [phone], or call 911 for re-evaluation in the emergency department if you are very concerned. Pending Studies at Discharge: Yes Studies:: BMP repeat INR repeat Stand-Alone Forms: [facility] Medications and DC Order Prescriptions: New doxycycline hyclate 100 mg Capsule 100 mg PO BID 9 Days Qty: 18 RF: 0 Continued aspirin [Aspir-81] 81 mg tablet,delayed release (DR/EC) 81 mg PO DAILY Qty: 30 RF: 0 (DME) OneTouch Ultra Blue Test Strip strip See Dose Instructions .ROUTE .MEDSUPPLY Qty: 100 RF: 0 cholecalciferol (vitamin D3) [Vitamin D3] 5,000 unit tablet 5,000 unit PO DAILY Qty: 30 RF: 0 thiamine HCl (vitamin B1) 100 mg tablet 100 mg PO BID RF: 0 tamsulosin 0.4 mg capsule 0.8 mg PO DAILY Qty: 180 RF: 1 memantine 10 mg tablet 10 mg PO BID Qty: 180 RF: 1 atorvastatin 40 mg tablet 40 mg PO HS Qty: 90 RF: 3 ipratropium-albuterol 0.5 mg-3 mg(2.5 mg base)/3 mL solution for nebulization 3 ml INHALATION Q4H PRN (Reason: Shortness Of Breath) Qty: 180 RF: 5 nitroglycerin 0.2 mg/hr patch 24 hour 1 patch TRANSDERMAL QPM Qty: 30 RF: 1 isosorbide mononitrate 60 mg tablet extended release 24 hr 60 mg PO DAILY Qty: 30 RF: 5 tramadol 50 mg tablet 50 mg PO Q6H PRN (Reason: pain) Qty: 30 RF: 0 silver sulfadiazine [Silvadene] 1 % cream 1 appln TOP DAILY Qty: 50 RF: 0 sertraline 100 mg tablet 100 mg PO DAILY Qty: 90 RF: 1 Combivent Respimat 20-100 mcg/actuation mist 1 puff INHALATION QID PRN (Reason: shortness of breath or wheezing) Qty: 4 RF: 5 (DME) lancets [OneTouch UltraSoft Lancets] misc See Dose Instructions .ROUTE .MEDSUPPLY Qty: 100 RF: 3 nitroglycerin 400 mcg/spray spray,non-aerosol 1 spray Sublingual Q5M PRN (Reason: Chest Pain) Qty: 4.9 RF: 2 (DME) pen needle, diabetic [BD Ultra-Fine Micro Pen Needle] 32 gauge x 1/4" needle See Dose Instructions .ROUTE .MEDSUPPLY Qty: 100 RF: 5 warfarin 5 mg Tablet 7.5 mg PO 3XWK RF: 0 furosemide 40 mg tablet 40 mg PO DAILY RF: 0 metoprolol succinate 50 mg tablet extended release 24 hr 50 mg PO DAILY RF: 0 Tresiba FlexTouch U-100 100 unit/mL (3 mL) insulin pen 15 units SUBCUT DAILY RF: 0 warfarin 5 mg tablet 10 mg PO 3XWK RF: 0 Discontinued cephalexin [Keflex] 500 mg capsule 500 mg PO TID Qty: 30 RF: 0 Discharge Orders: Discharge Order (Routine); Ordered 02/29/20 Ordered By: James Hayes Admission Data Admit Date/Time: 02/27/20 00:17 Attending Provider: Farshad Mota Admit Provider: Parag Guzman Primary Care Provider: Jhonathan Pennington Other Providers: Parag Guzman ; Yovany Herndon ; [facility] ; [facility] ; [facility] ; [facility] Other Interventions: Discharge Summary Assessment (RN) Last Done: 02/29/20 11:06 DC Date/Time DO NOT enter until pt leaves facility: 02/29/20 13:36 Supervising Physician Co-Signing Physician Notes Attending attestation Pt seen and examined in concert with Dr. Hayes. In agreement with the documented findings as noted in the resident documentation with any exceptions or additions as noted here. No acute medical complaint at bedside. On examination, IRR/IRR, rate controlled. CTAB. LLE examination as noted. Left lower extremity cellulitis - improving on PO doxycycline with removal of CAM walker. Complete 10 day course. Deconditioning - 30 minutes spent discussing with patient re: need for rehabilitation, risks of unsupported recovery and concerns for re-injury and worsening deconditioning by inactivity. Pt adamantly declines any inpatient rehab and is able to articulate back the risks and benefits that I defined. Home with home health and PT support. Counseling provided to spouse. Else see resident documentation as noted. Resident Activity Tracking Resident Involvement: Resident Care Provided Care Provided: Adult Hospital Medicine
[2020-02-28] MEDS ORDERED: VANCOMYCIN TROUGH ONE (11:30)
[2020-02-28] MEDS ORDERED: NICOTINE POLACRILEX 2 MG GUM MT PRN (14:18)
--- NOTE | 2020-02-28 14:18 | Hospitalist Progress Note ---
Date of Service February 28, 2020 Assessment & Plan (1) Cellulitis of left leg without foot: Mr. Betancourt is an 79-year-old male with a past medical history of type 2 diabetes on insulin, hyperlipidemia, hypertension, neurogenic bladder, permanent A. fib, CAD with ischemic cardiomyopathy, BPH with luts, severe , senile Alzheimer dementia, anxiety depression who presented with several days of worsened altered mental status and concern for left lower extremity infection. Deconditioning, weakness Patient seen by OT today, not safe for return home. Recommended inpatient rehab. Discussed with patient, not happy about not going home but agreeable to rehab. Discussed with case resource manager and patient's , pending insurance authorization and bed availability. Left lower extremity cellulitis, improving - Seen 02/17 by PCP for AMS, recommended wound clinic due to LE cellulitis. Pt refused, tx with keflex. Did not improve with Keflex 500 mg 3 times daily outpatient therapy Received Zosyn/Vanco on admit, Vanco discontinued -Continue doxycycline 100 mg twice daily for total 10-day course Grade 2 ulceration at medial L calf, improving and nontender today No leukocytosis, patient without fever/chills/sweats Recommend wound care VICTORIANO on CKD Baseline creatinine approximately 1.5 with GFR 3040 Acutely elevated to 1.8, downtrending to 1.6 Patient appears clinically volume overloaded, BNP 10 K (last 38K) Echo 2017 with EF 50-55%, x-ray shows developing congestive failure - Repeat ECHO shows mild interval worsening of EF to approximately 50% and progression of aortic stenosis from mildmoderate to moderatesev. Will arrange for patient to see cardiology as outpatient. - Follow UOP - BMP tomorrow, resume lasix if improved L Closed Trent B Ankle Fracture - Seen by Ortho 12/05 - Missed 1mo follow up. Dr. Herndon consulted by admitting team for f/u Seen by orthopedics, signed off patient no longer requires walking boot AMS, improved - Patient with senile Alzheimer dementia, cared for by his at home - Pt reports not normally oriented to date - Answers questions appropriately, follows 2 step commands - Suspect worsened 2/2 acute LLE cellulitis tx as above, currently improved - Bedside swallow passed T2DM - A1C 7.6% - BSG with adequate control - Held DAIRY MANAGER insulin degludec - Aspart sliding scale 100-150, 1:10, CF 25 with checks AC/HS or Q6H if NPO - Pt not on RASHAD DAIRY MANAGER CAD, ischemic cardiomyopathy with chronic systolic heart failure - Pt denies chest pain, CP, SoB - BNP 10K, last 3-8K - Clinically appears volume overloaded with CKD - ASA 81mg daily - DAIRY MANAGER lasix 40mg held for VICTORIANO - Repeat echo as above Afib - Warfarin 7.5mg 3xpw 10mg 3xpw -Continue DAIRY MANAGER Isosorbide Mononitrate 60mg daily held on admit. -Continue DAIRY MANAGER MTP succinate 50mg daily held on admit. - DAIRY MANAGER Nitro 0.2 mg/hr Q24H TD held on admit. HLD - Atorvastatin 40mg daily Tobacco Dependence - Nicotine patch 14mg ordered - Nicotine gum + education for use FEN/GI: HH/T2DM diet. DVT PPx: On warfarin as above Code Status: Full Code (2) Cognitive changes: (3) Ulceration: (4) Emphysema of lung: (5) Diabetes mellitus type 2, uncontrolled: (6) Hyperlipidemia: (7) Hypertension: (8) Neurogenic bladder: (9) Port-A-Cath in place: (10) BPH loc w urin obs/LUTS: (11) Severe aortic stenosis: (12) CKD (chronic kidney disease) stage 3, GFR 30-59 ml/min: (13) GERD (gastroesophageal reflux disease): (14) Permanent atrial fibrillation: (15) Ischemic cardiomyopathy: Admission and Anticipated Discharge Date Admission Date: February 27, 2020 Supervising Physician Co-Signing Physician Notes Patient seen and examined with PGY-2 Dr. Hayes. Agree with history, exam findings, assessment and plan of care as outlined with the following updates: In brief, Mr. Townsend is an 79 year old male with history of DM, CAD, ischemic cardiomyopathy, HTN, Afib, COPD, CKD, dementia, anxiety/depression admitted with altered mental status likely secondary to cellulitis on the left lower leg after failed outpatient treatment with keflex. He is eager to get home; however, gets winded and fatigued with walking even short distances. VS, labs, imaging and nursing notes reviewed. Nontoxic appearing. Oriented to place and person. Left calf with erythema, stage 2 pressure ulcer. Nontender. Dressing over the ulcer area. Bilateral pedal edema. 1. left leg cellulitis, failed outpatient keflex. ?secondary to friction from CAM boot. Swithced to PO doxy for strep and staph coverage. 2. Dirty UA. Urine culture not sent. Do not believe the dirty UA represents an infection as patient straight caths himself. 3. delirium 2/2 to infection, now resolved. 4. L fibula fracture, [place]. Tib-fib radiographs on admission show healing distal fibula fracture. WBAT. Appreciate ortho coming to see patient while he was here. 5. DM. holding home insulin. sliding scale. A1C 7.6 on admission. 6. CAD/ischemic cardiomyopathy with chronic systolic HF. ?exacerbation with i ncreased edema in the legs and elevated BNP on admission, CXR with mild vascular congestion. - Repeat Echo wtih EF 40-45%, regional wall motion abnormalities, mod dilated LA, mod aortic regurg, mod to severe , severe mitral calcification--this is minimally changed from previous Echo. - Would benefit from gentle diuresis, joelle given his dyspnea on exertion. 7. Atrial fibrillation. Rate controlled. Continue home metoprolol. AC with coumadin. INR 1.6 after dose was held on night of admission. Resume home coumadin dosing and follow INR. 8. Anxiety/depression/dementia. Continue home sertraline and memantine. 8. CKD. Baseline Cr ~1.5. Cr 1.8 today. Renally dosing medications. Dispo: Seen by PT today, recommending rehab. CM, and patient aware. Subjective Mr. Townsend is seen at the bedside. He reports he feels in his normal state of health and would like to go home. Denies fever, chills, sweats, chest pressure, palpitations, shortness of breath, difficulty breathing. His lower leg does not feel painful today. He was seen by Occupational Therapy who noted extreme weakness when standing and difficulty ambulating to the door, and recommended inpatient rehab and that he was not safe for return home. Mr. Townsend reports his frustration with not going home, but is agreeable to leaving the hospital to a short stay in rehab. Discussed with case management. He has no other questions or concerns at time of bedside visit. Called patient's and discussed update by phone. She agrees with plan for rehab, notes that he uses a lot of chew at home (a proximal half can a day). Discussed nicotine supplementation, will continue to update her by phone. Review of Systems Review of Systems: Constitutional: Denies fever, chills Eyes: Denies Acute vision change ENT: Denies ear pain, sore throat Cardiovascular: Denies Chest pain, chest pressure, palpitations. Endorses chronic lower extremity swelling Respiratory: Denies shortness of breath, cough, sputum production, difficulty breathing Gastrointestinal: Denies abdominal pain, nausea, vomiting. Genitourinary: Denies pain with urination, urinary urgency, urinary frequency Musculoskeletal: Denies acute weakness, muscle aches/pain, joint aches/pain, But endorses some global fatigue Integumentary: Endorses a "black spot " on his left calf. Denies other acute lesions, rash, and skin changes Neurological: Denies headache, focal weakness Physical Exam Physical Exam: General: A&O to name, place, and year. Follows two-step commands. NAD. Cooperative. HEENT: Atraumatic, normocephalic.Visual acuity grossly intact. Pupils equal. Pulm: CTAB -wheezes/rales. Symmetrical chest rise. No increased work of breathing. No respiratory distress. Cardiac: Irregularly irregular, -mrg. Radial pulses intact and symmetrical. Abdominal: Obese,Nontender, soft. BS present Extremities: Left lower extremity with grade 2 pressure ulcer on posterior medial calf covered with wound dressing. Minimal erythema, non-tender to palpation. Trace bilateral ankle edema. PT pulses intact to palpation and symmetrical. No right lower extremity erythema/tenderness to palpation. Results & Data Results & Data ([facility]) Vital Signs (Past 12 Hours) Vital Signs Temp Pulse Pulse Resp BP Pulse Ox 02/28/20 11:20 71 02/28/20 11:16 36.4 C L 63 18 119/67 91 02/28/20 07:19 36.4 C L 68 18 140/70 92 02/28/20 03:13 36.7 C 75 18 122/79 96 Resident Activity Tracking Resident Involvement: Resident Care Provided Care Provided: Adult [facility]
[2020-02-28] MEDS: NICOTINE 14 MG/24 HR PATCH TD SCH (15:57)
[2020-02-28] MEDS ORDERED: WARFARIN SOD 7.5 MG TAB PO SCH (16:00)
[2020-02-28] MEDS: ATORVASTATIN 40 MG TAB PO SCH (20:35)
[2020-02-29 06:00] LABS: Basophils # (auto) 0.04 K/uL (0-0.2); Basophils % (auto) 0.5 %; Eosinophils % (auto) 2.7 %; Hematocrit (blood only) 36.4 % (42-52); Hemoglobin 11.8 g/dL (14.0-18.0); Immature Granulocytes # (auto) 0.01 K/uL (0.00-0.02); Immature Granulocytes % (auto) 0.1 %; Lymphocytes # (auto) 1.48 K/uL (1.2-3.4); Lymphocytes % (auto) 20.1 %; Mean Corpuscular Hemoglobin 30.3 pg (25-34); Mean Corpuscular Hgb Conc 32.4 g/dL (32-36); Mean Corpuscular Volume 93.6 fL (80-100); Mean Platelet Volume 10.1 fL (7.4-10.4); Monocytes # (auto) 0.65 K/uL (0.11-0.59); Monocytes % (auto) 8.8 %; Neutrophils # (auto) 4.99 K/uL (1.4-6.5); Neutrophils % (auto) 67.8 %; Platelet Count 186 K/uL (130-400); RDW Coefficient of Variation 15.9 % (11.5-14.5); RDW Standard Deviation 54.3 fL (36.4-46.3); Red Blood Count 3.89 M/uL (4.7-6.1); White Blood Count 7.37 K/uL (4.8-10.8)
[2020-02-29 06:36] LABS: BUN Creatinine Ratio 15.3 (10-20); Calcium 8.3 mg/dl (8.5-10.1); Creatinine Clr Calc Pharmacy 48.8 ml/min; Est GFR (African American) 46.8; Est GFR (Non-African American) 40.4; Potassium 4.2 mmol/L (3.5-5.1)
[2020-02-29 08:09] LABS: INR 1.6 (0.9-1.1); Prothrombin Time 16.7 Seconds (9.0-12.0)
[2020-02-29] MEDS: INSULIN ASPART 100 UNITS/ML 3 ML PEN SC SCH ×2 (09:01→12:19)
[2020-02-29] MEDS: MEMANTINE HCL 10 MG TAB PO SCH (09:02)
[2020-02-29] MEDS: ASPIRIN 81 MG ECTAB PO SCH (09:02)
[2020-02-29] MEDS: ISOSORBIDE MONO EXTENDED REL 60 MG TABCR PO SCH (09:02)
[2020-02-29] MEDS: DOXYCYCLINE HYCLATE 100 MG CAP PO SCH (09:03)
[2020-02-29] MEDS: SERTRALINE HCL 100 MG TABLET PO SCH (09:03)
[2020-02-29] MEDS: METOPROLOL SUCC 50MG EXT REL TAB PO SCH (09:03)
[2020-02-29] MEDS: NICOTINE 14 MG/24 HR PATCH TD SCH (09:03)
== END 2020-02-29 13:36 | disposition home health service (06) ==
LOC: ED 22:11 → INTOOBSV 02-27 00:17 → 2N 02-27 00:17 → SUATTDRO 02-27 00:17 → 2N 02-27 01:15

== ENCOUNTER 2020-06-11 23:55 | Observation (INO) ==
[2020-06-12] MEDS ORDERED: fentaNYL citrate 100 MCG/2 ML VIAL ONE (00:06)
[2020-06-12 00:30] LABS: Basophils # (auto) 0.01 K/uL (0-0.2); Basophils % (auto) 0.1 %; Eosinophils # (auto) 0.14 K/uL (0-0.5); Eosinophils % (auto) 1.5 %; Hematocrit (blood only) 43.9 % (42-52); Hemoglobin 14.4 g/dL (14.0-18.0); Immature Granulocytes # (auto) 0.02 K/uL (0.00-0.02); Immature Granulocytes % (auto) 0.2 %; Lymphocytes # (auto) 1.73 K/uL (1.2-3.4); Lymphocytes % (auto) 18.4 %; Mean Corpuscular Hemoglobin 30.9 pg (25-34); Mean Corpuscular Hgb Conc 32.8 g/dL (32-36); Mean Corpuscular Volume 94.2 fL (80-100); Mean Platelet Volume 10.6 fL (7.4-10.4); Monocytes # (auto) 0.74 K/uL (0.11-0.59); Monocytes % (auto) 7.9 %; Neutrophils # (auto) 6.77 K/uL (1.4-6.5); Neutrophils % (auto) 71.9 %; Platelet Count 199 K/uL (130-400); RDW Standard Deviation 58.7 fL (36.4-46.3); Red Blood Count 4.66 M/uL (4.7-6.1); White Blood Count 9.41 K/uL (4.8-10.8)
[2020-06-12] MEDS ORDERED: SODIUM CHLORIDE 0.9% 1000ML 1,000 ML IV SCH (00:30)
[2020-06-12 00:38] LABS: Appearance Urine Turbid (Clear); Bacteria Urine Automated 2+ (Negative); Bilirubin Urine Negative (Negative); Blood Urine 3+ (Negative); Color Urine Yellow; Glucose Urine UA Negative (Negative); Ketones Urine Negative (Negative); Leukocyte Esterase Urine 3+ (Negative); Nitrite Urine Positive (Negative); Protein Urine 2+ (Negative); Specific Gravity Urine 1.011 (1.000-1.030); Urobilinogen Urine Negative (Negative); WBC Urine Automated >30 /hpf (0-5); pH Urine 6.5 (4.5-7.5)
[2020-06-12 00:40] LABS: INR 1.2 (0.9-1.1); Partial Thromboplastin Time 26.9 Seconds (21.0-31.0); Prothrombin Time 12.2 Seconds (9.0-12.0)
[2020-06-12] MEDS ORDERED: PIPERACILL/TAZOBAC CONSULT ACTIVE PRN ×2 (00:48→04:49)
[2020-06-12] MEDS ORDERED: PIPERACILLIN/TAZOBACTAM 4.5 GM/120 ML BAG IV ONE (00:48)
[2020-06-12 00:49] LABS: Albumin Level 3.4 gm/dl (3.4-5.0); BUN Creatinine Ratio 13.8 (10-20); Calcium 9.5 mg/dl (8.5-10.1); Creatinine Clr Calc Pharmacy 35.4 ml/min; Est GFR (African American) 36.3; Est GFR (Non-African American) 31.3; Potassium 3.9 mmol/L (3.5-5.1)
[2020-06-12 00:52] LABS: Albumin Globulin Ratio 0.9 (0.9-2); Bilirubin,Total 1.1 mg/dl (0.2-1); Total Protein 7.4 gm/dl (6.4-8.2)
[2020-06-12] MEDS ORDERED: ALUMINUM/MAGNESIUM SUSP 30 ML UDC PO PRN (04:49)
[2020-06-12] MEDS ORDERED: MAGNESIUM HYDROXIDE SUSP 30 ML UDC PO PRN (04:49)
[2020-06-12] MEDS ORDERED: DAPTOMYCIN CONSULT ACTIVE PRN (04:49)
[2020-06-12] MEDS ORDERED: GLUCOSE 10 TABS/TUBE PO PRN (04:49)
[2020-06-12] MEDS ORDERED: CARBOHYDRATES FOR HYPOGLYCEMIA PO PRN (04:49)
[2020-06-12] MEDS ORDERED: GLUCOSE 40% GEL 15 GM TUBE PO PRN (04:49)
[2020-06-12] MEDS ORDERED: DAPTOmycin 450 MG in SYRINGE 0 ML IV ONE (04:49)
[2020-06-12] MEDS ORDERED: GLUCAGON FOR INJ 1 MG VIAL SQ PRN (04:49)
[2020-06-12] MEDS ORDERED: ACETAMINOPHEN 325 MG TAB PO PRN (04:49)
[2020-06-12] MEDS ORDERED: ALBUT/IPRATROP 3MG/0.5MG NEB 3 ML VIAL INH PRN (04:49)
[2020-06-12] MEDS ORDERED: DEXTROSE 50% 50 ML SYRINGE IV PRN (04:49)
[2020-06-12] MEDS ORDERED: NITROGLYCERIN 60 SPRAYS/4.9 GM SPRAY SL PRN (05:00)
--- NOTE | 2020-06-12 05:13 | History & Physical Report ---
Date of Service June 12, 2020 Assessment & Plan (1) UTI (urinary tract infection): Urinary tract infection/BPH with obstruction/neurogenic bladder- Most recent infections over the past few years include E. coli, Klebsiella oxytoca and Enterococcus faecalis. Place on daptomycin IV and Zosyn IV Follow urine culture and sensitivities Present on Admission?: Yes (2) BPH loc w urin obs/LUTS: See above Continue tamsulosin 0.8 mg daily Present on Admission?: Yes (3) Pressure ulcer of left leg, stage 3: Following with wound care in the outpatient setting. Previous bacteria include coag negative staph, Enterobacter cloacae, E. coli, and enterococcus faecalis Antibiotics as noted above Present on Admission?: Yes (4) Hyperlipidemia: Continue atorvastatin 40 mg at bedtime Present on Admission?: Yes (5) Permanent atrial fibrillation: PAF/ICM/CAD- On chronic anticoagulation as noted below. Continue metoprolol succinate 50 mg daily, isosorbide mononitrate 60 mg extended release, nitroglycerin 0.2 mg/h transdermal patch and aspirin Present on Admission?: Yes (6) Ischemic cardiomyopathy: See above Present on Admission?: Yes (7) Neurogenic bladder: See above Present on Admission?: Yes (8) COPD (chronic obstructive pulmonary disease): Continue usual nebulizers Present on Admission?: Yes (9) Peripheral neuropathy: Continue thiamine and tramadol Present on Admission?: Yes (10) Peripheral arterial disease: Status post recent procedure by Dr. Parra. Continue aspirin Present on Admission?: Yes (11) Long-term (current) use of anticoagulants, INR goal 2.0-3.0: Patient was off of anticoagulation during recent procedure for PAD. His reports that that was resumed 5 days ago. INR today is 1.2. Placed on heparin IV for now for coverage until INR is therapeutic with Coumadin. Present on Admission?: Yes (12) DM (diabetes mellitus): Continue Tresiba [address] on Accu-Cheks before meals and at bedtime with NovoLog coverage per scale Check hemoglobin A1c Present on Admission?: Yes (13) Alzheimers disease: SDAT- Continue sertraline and memantine. Present on Admission?: Yes Admission and Anticipated Discharge Date Admission Date: June 12, 2020 History of Present Illness Chief Complaint: The patient presents to the emergency department with complaint of generalized aching, urinary frequency, the development of loose stools today, and the development of substernal chest pain today Primary Care Provider: Jhonathan Pennington, The patient is an 80-year-old male with a past medical history including chronic anticoagulation, peripheral arterial disease, left lower extremity pressure ulcer stage III, diabetes mellitus, CKD stage III, anxiety with depression, hyperlipidemia, neurogenic bladder, vitamin D deficiency, permanent atrial fibrillation, ischemic cardiomyopathy, BPH with obstruction, GERD, severe aortic stenosis, COPD, CHF, sleep apnea, peripheral neuropathy and SDAT. His provides most of the H&P, as patient is somewhat lethargic. She reports that he told her that when he developed loose stools today he also developed substernal chest pain, thought he was having a heart attack, and wanted to come to the emergency department Allergies Allergy/AdvReac Type Severity Reaction Status Date / Time codeine AdvReac Intermediate EMESIS Verified 06/12/20 00:50 Iodinated Contrast Media AdvReac Mild NAUSEA Verified 06/12/20 00:50 Home Medications Home Medications Medication Instructions Recorded Confirmed Type lancets #100 ea 02/12/19 06/06/20 Rx nitroglycerin 400 mcg/spray 1 spray SUBLINGUAL Q5M PRN #4.9 gm 02/12/19 06/12/20 Rx translingual pen needle, diabetic 32 gauge x #100 ea 02/12/19 06/06/20 Rx 1/4" blood sugar diagnostic #100 ea 02/13/19 06/06/20 Rx cholecalciferol (vitamin D3) 125 5,000 unit PO DAILY #30 tab 02/13/19 06/12/20 Rx mcg (5,000 unit) tablet thiamine HCl (vitamin B1) 100 mg 100 mg PO BID tab 02/13/19 06/12/20 History tablet tamsulosin 0.4 mg capsule 0.8 mg PO DAILY #180 cap 04/11/19 06/12/20 Rx atorvastatin 40 mg tablet 40 mg PO HS #90 tab 06/13/19 06/12/20 Rx ipratropium 0.5 mg-albuterol 3 mg 3 ml INHALATION Q4H PRN #180 ml 06/13/19 06/12/20 Rx (2.5 mg base)/3 mL nebulization soln nitroglycerin 0.2 mg/hr 1 patch TRANSDERMAL QPM #30 ea 11/19/19 06/12/20 Rx transdermal 24 hour patch tramadol 50 mg tablet 50 mg PO Q6H PRN #30 tab 12/06/19 06/12/20 Rx ipratropium 20 mcg-albuterol 100 1 puff INHALATION QID PRN #4 gm 02/18/20 Rx mcg/actuation mist for inhalation sertraline 100 mg tablet 100 mg PO DAILY #90 tab 02/18/20 06/12/20 Rx Tresiba FlexTouch U-100 15 units SUBCUT DAILY 02/26/20 06/12/20 History furosemide 40 mg PO DAILY 02/26/20 06/12/20 History metoprolol succinate 50 mg PO DAILY 02/26/20 06/12/20 History isosorbide mononitrate 60 mg 60 mg PO DAILY #30 tab 02/29/20 06/12/20 Rx tablet,extended release 24 hr memantine 10 mg tablet 10 mg PO BID #180 tab 03/13/20 06/12/20 Rx famotidine 40 mg tablet 40 mg PO DAILY tab 05/01/20 06/12/20 History gentamicin 0.1 % topical ointment 1 applic TOPICAL DAILY 14 Days #30 05/16/20 06/12/20 Rx g warfarin 5 mg tablet See Rx Instructions .ROUTE .COMPLEX 05/21/20 06/12/20 History aspirin 81 mg PO DAILY 06/12/20 06/12/20 History Past Med/Surg History Medical History (Updated 06/12/20 @ 05:26 by Parag Guzman MD) Anemia Anxiety with depression Cardiac ischemia Cellulitis of left leg without foot CKD (chronic kidney disease) stage 3, GFR 30-59 ml/min Cognitive changes Diabetes mellitus type 2, uncontrolled DM (diabetes mellitus) Hearing loss Hypertension Hypotension Subtherapeutic international normalized ratio (INR) Ulceration Surgical History H/O hemicolectomy Hx of CABG Family History Mother Hypertension Social History Smoking Status: Former smoker Tobacco Type: Smokeless Tobacco (Dip or Chew) Second Hand Exposure: No; Hx Alcohol Use: Yes Alcohol type: hard liquor Hx Substance Use: Yes Last Used Substance: Hours (ago) Last Used Substance Other:: MD aware. Substance Use Type Other:: medical marijuana Preferred Language: Welsh Communication Ability: Effective Ship Erector Required: No Beliefs That Will Affect Care: None marital status: Current Living Situation: Spouse Other Information That Helps Us Care for You: No Feels Safe at Home: Yes Safety Concerns: Feels Safe At This Time Assistive Devices: Cane Review of Systems Review of Systems: Unobtainable due to cognitive status Review of systems Physical Exam Physical Exam: The patient is lethargic, well developed and well nourished, normocephalic and atraumatic, lying in bed and in no acute distress. HEENT--PERRL, EOMI, mucous membranes and oropharynx dry. Neck--supple. No JVD. No bruits. Thyroid normal, trachea midline, no adenopathy. Heart--normal S1 and S2. No murmurs, rubs or gallops. Lungs--clear bilaterally, no respiratory distress, no accessory muscle use. Abdomen--normal bowel sounds and soft. Nontender. Nondistended. Extremities--no cyanosis or clubbing. No edema. Left lower extremity with chronic ulcer wrapped Dermatologic--normal skin turgor, normal color, no abnormal lymph nodes, no rash. Neurologic--cranial nerves II through XII grossly intact. Rheumatologic--limited exam Psychiatric--lethargic Results & Data Results & Data ([facility]) Vital Signs (Past 12 Hours) Vital Signs Temp Pulse Pulse Resp BP BP Pulse Ox 06/12/20 03:59 89 20 152/89 H 100 06/12/20 01:30 87 22 173/89 H 99 06/12/20 00:06 100 06/12/20 00:05 87 L 06/12/20 00:00 95.7 F L 80 18 165/92 H 93 Laboratory Results Laboratory Results WBC 9.41 K/uL (4.8-10.8) 06/12/20 00:15 RBC 4.66 M/uL (4.7-6.1) L 06/12/20 00:15 Hgb 14.4 g/dL (14.0-18.0) 06/12/20 00:15 Hct 43.9 % (42-52) 06/12/20 00:15 MCV 94.2 fL (80-100) 06/12/20 00:15 MCH 30.9 pg (25-34) 06/12/20 00:15 MCHC 32.8 g/dL (32-36) 06/12/20 00:15 RDW Std Deviation 58.7 fL (36.4-46.3) H 06/12/20 00:15 RDW Coeff of Marie 17.0 % (11.5-14.5) H 06/12/20 00:15 Plt Count 199 K/uL (130-400) 06/12/20 00:15 MPV 10.6 fL (7.4-10.4) H 06/12/20 00:15 Immature Gran % (Auto) 0.2 % 06/12/20 00:15 Neut % (Auto) 71.9 % 06/12/20 00:15 Lymph % (Auto) 18.4 % 06/12/20 00:15 Cloud % (Auto) 7.9 % 06/12/20 00:15 Eos % (Auto) 1.5 % 06/12/20 00:15 Baso % (Auto) 0.1 % 06/12/20 00:15 Neut # (Auto) 6.77 K/uL (1.4-6.5) H 06/12/20 00:15 Lymph # (Auto) 1.73 K/uL (1.2-3.4) 06/12/20 00:15 Cloud # (Auto) 0.74 K/uL (0.11-0.59) H 06/12/20 00:15 Eos # (Auto) 0.14 K/uL (0-0.5) 06/12/20 00:15 Baso # (Auto) 0.01 K/uL (0-0.2) 06/12/20 00:15 Immature Gran # (Auto) 0.02 K/uL (0.00-0.02) 06/12/20 00:15 PT 12.2 Seconds (9.0-12.0) H 06/12/20 00:15 INR 1.2 (0.9-1.1) H 06/12/20 00:15 APTT 26.9 Seconds (21.0-31.0) 06/12/20 00:15 PTT Ratio 1.0 06/12/20 00:15 Sodium 135 mmol/L (136-145) L 06/12/20 00:15 Potassium 3.9 mmol/L (3.5-5.1) 06/12/20 00:15 Chloride 99 mmol/L (98-107) 06/12/20 00:15 Carbon Dioxide 27 mmol/L (21-32) 06/12/20 00:15 Anion Gap 10.0 (3-11) 06/12/20 00:15 BUN 27 mg/dl (7-18) H 06/12/20 00:15 Creatinine 1.95 mg/dl (0.6-1.4) H 06/12/20 00:15 Est Cr Clr Drug Dosing 35.4 ml/min 06/12/20 00:15 Est GFR ( Amer) 36.3 06/12/20 00:15 Est GFR (Non-Af Amer) 31.3 06/12/20 00:15 BUN/Creatinine Ratio 13.8 (-20) 06/12/20 00:15 Glucose 162 mg/dl (70-99) H 06/12/20 00:15 Lactate 1.6 mmol/L (0.4-2.0) 06/12/20 02:42 Calcium 9.5 mg/dl (8.5-10.1) 06/12/20 00:15 Total Bilirubin 1.1 mg/dl (0.2-1) H 06/12/20 00:15 AST 21 U/L (15-37) 06/12/20 00:15 ALT 17 U/L (12-78) 06/12/20 00:15 Alkaline Phosphatase 96 U/L (45-117) 06/12/20 00:15 Total Protein 7.4 gm/dl (6.4-8.2) 06/12/20 00:15 Albumin 3.4 gm/dl (3.4-5.0) 06/12/20 00:15 Globulin 4.0 gm/dl (2.5-4.0) 06/12/20 00:15 Albumin/Globulin Ratio 0.9 (0.9-2) 06/12/20 00:15 Lipase 49 U/L (73-393) L 06/12/20 00:15 Urine Color Yellow 06/12/20 00:20 Urine Appearance Turbid (Clear) A 06/12/20 00:20 Urine pH 6.5 (4.5-7.5) 06/12/20 00:20 Ur Specific [place] 1.011 (1.000-1.030) 06/12/20 00:20 Urine Protein 2+ (Negative) H 06/12/20 00:20 Urine Glucose (UA) Negative (Negative) 06/12/20 00:20 Urine Ketones Negative (Negative) 06/12/20 00:20 Urine Blood 3+ (Negative) H 06/12/20 00:20 Urine Nitrite Positive (Negative) A 06/12/20 00:20 Urine Bilirubin Negative (Negative) 06/12/20 00:20 Urine Urobilinogen Negative (Negative) 06/12/20 00:20 Ur Leukocyte Esterase 3+ (Negative) H 06/12/20 00:20 Urine WBC (Auto) >30 /hpf (0-5) H 06/12/20 00:20 Urine RBC (Auto) 10-30 /hpf (0-4) H 06/12/20 00:20 U Hyaline Cast (Auto) 1-5 /lpf (0-5) 06/12/20 00:20 U Epithel Cells (Auto) 5-10 /lpf (0-5) H 06/12/20 00:20 Urine Bacteria (Auto) 2+ (Negative) H 06/12/20 00:20 Urine Yeast Not Reportable 06/12/20 00:20 Diagnostic Findings [facility] Patient: JOY BERNAL (Male) : 38 Status: ER Date: 06/12/20 01:26 Room #: History: DIFFUSE ABD PAIN, DEMENTIA Slices: [phone] Priors: Tech: Theron Vasquez @ [phone] Exams: CT ABDOMEN & PELVIS Without Contrast Contrast: Accession Numbers: [id number] Preliminary Findings Only See Final Report For Complete Findings CT ABDOMEN & PELVIS Without Contrast: Mitral valve and coronary calcification. Mild aortic root calcification. Moderate right pleural effusion. Minimal cirrhotic appearance to the liver. Right segment 6 subcapsular 2.5 cm isodense lesion with peripheral calcification. Multiple dependent gallbladder stones near the neck of the gallbladder. Splenic vascular calcifications. Lipomatosis of pancreas. Abdominal aorta and visceral branches calcifications. Mild atrophy of bilateral kidneys. Right posterior abdominal wall 3.9 x 3.4 x 6.5 cm oval soft tissue density with peripheral calcification. It is anterior to the atrophic quadratus lumborum muscle. Intra-abdominal and pelvic intraperitoneal mesenteric lipomatosis. Suture line at the right colon. Moderate sigmoid diverticulosis. Negative for diverticulitis. Mild circumferential mucosal thickening of the rectum. Mild proctitis may be considered. Mild lower lumbar spine degenerative changes. Nondistended partially thick-walled urinary bladder. Penile prosthesis and pump. Radiologist: Dmitry Red MD Study ready at 01:33 and initial results transmitted at 01:51 *This report constitutes a preliminary interpretation only. Non-acute findings felt to be unrelated to the clinical presentation may not be discussed in this report. The study will be interpreted and a final report will be generated by the local Radiologist the following shift. To reach the [facility] radiology depar tment call [phone]. If a discrepancy is found between the preliminary and final interpretations of this study, please notify us via our Client Portal at [email or web address] [email or web address] Exams.You can also fax this report with a description of the discrepancy, or include the final report, to our daytime fax number [phone].If faxing, please indicate the severity of discrepancy using one of the following categories: [ ] 1 - Agree/Informational [ ] 2 - Unlikely to Affect Management [ ] 3 - Possible Eventual Change of Management [ ] 4 - Probable Immediate Change of Management For all other patient related information, please fax us at [phone]. [id number] Code Status & VTE Plan Code Status Full code VTE Prophylaxis Plan VTE Prophylaxis will be ordered: Yes PG Care Time/CCT Total # of Minutes Spent Total Time Spent with Patient: Total time spent is greater than 50% in coordination of care (as documented) at patient's floor/unit and/or counseling patient: Coding Level of Care Code 21459 Initial Inpt Care Lvl 3 Diagnoses UTI (urinary tract infection) N39.0 BPH loc w urin obs/LUTS N40.1 Pressure ulcer of left leg, stage 3 L89.893 Hyperlipidemia E78.5 Permanent atrial fibrillation I48.2 Ischemic cardiomyopathy I25.5 Neurogenic bladder N31.9 COPD (chronic obstructive pulmonary disease) J44.9 COPD type: unspecified COPD Peripheral neuropathy G62.9 Peripheral arterial disease I73.9 Long-term (current) use of anticoagulants, INR goal 2.0-3.0 Z79.01 DM (diabetes mellitus) E11.8; Z79.4 Diabetes mellitus type: type 2 Diabetes mellitus mcc insulin use: with termite control representative use Diabetes mellitus complication status: with unspecified complications Alzheimers disease G30.9; F02.80 Alzheimer's disease onset: unspecified onset Dementia behavioral disturbance: without behavioral disturbance (1) COPD (chronic obstructive pulmonary disease) COPD type: unspecified COPD Qualified Code(s): J44.9 - Chronic obstructive pulmonary disease, unspecified (2) Alzheimers disease Alzheimer's disease onset: unspecified onset Dementia behavioral disturbance: without behavioral disturbance Qualified Code(s): G30.9 - Alzheimer's disease, unspecified; F02.80 - Dementia in other diseases classified elsewhere without behavioral disturbance (3) DM (diabetes mellitus) Diabetes mellitus type: type 2 Diabetes mellitus termite control representative insulin use: with termite control representative use Diabetes mellitus complication status: with unspecified complications Qualified Code(s): E11.8 - Type 2 diabetes mellitus with unspecified complications; Z79.4 - long term care phlebotomist (current) use of insulin
[2020-06-12] MEDS ORDERED: PNEUMOCOCCAL POLYSACCHARIDES 25 MCG/0.5 ML VIAL/SYR IM ONE (05:16)
[2020-06-12] MEDS ORDERED: PNEUMOCOCCAL ADMINISTRATION CHARGE ONE (05:16)
--- NOTE | 2020-06-12 05:23 | Emergency Department Note ---
History of Present Illness General Chief complaint: Abdominal Pain Stated complaint: ABDOMINAL PAIN Time Seen by Provider: 06/12/20 00:00 Source: patient, family () and RN notes reviewed Mode of arrival: EMS Limitations: altered mental status (Dementia) History of Present Illness Provider complaint: Abdominal pain, diarrhea, self catheterizes Maximum Pain Intensity: 8 This patient is an 80-year-old male who presents emergency department with complaints of abdominal pain. The patient apparently has a history of dementia and is somewhat limited in his ability to answer questions however per his who is at the bedside he got up urgently to use the restroom. She was asleep on the couch at the time but he called for her. The patient apparently was incontinent of stool which she realized was diarrhea. She denies that there was any blood present. The patient was sitting on the toilet and began to complain of abdominal pain and said "this is it." He asked her to take him to the emergency department. The patient stated he thought he was having a heart attack. She was able to get him his nitroglycerin spray and call for an ambulance. Patient does have a significant past medical history including diabetes, PAD, pressure wound of the left leg, cardiomyopathy and atrial fibrillation. He apparently had a catheterization of the left leg due to PAD recently. Patient's denies that there have been any recent fevers, chills, cough, chest pain or shortness of breath prior to this incident. Home Medications Home Medications Medication Instructions Recorded Confirmed Type lancets #100 ea 02/12/19 06/06/20 Rx nitroglycerin 400 mcg/spray 1 spray SUBLINGUAL Q5M PRN #4.9 gm 02/12/19 06/12/20 Rx translingual pen needle, diabetic 32 gauge x #100 ea 02/12/19 06/06/20 Rx 1/4" blood sugar diagnostic #100 ea 02/13/19 06/06/20 Rx cholecalciferol (vitamin D3) 125 5,000 unit PO DAILY #30 tab 02/13/19 06/12/20 Rx mcg (5,000 unit) tablet thiamine HCl (vitamin B1) 100 mg 100 mg PO BID tab 02/13/19 06/12/20 History tablet tamsulosin 0.4 mg capsule 0.8 mg PO DAILY #180 cap 04/11/19 06/12/20 Rx atorvastatin 40 mg tablet 40 mg PO HS #90 tab 06/13/19 06/12/20 Rx ipratropium 0.5 mg-albuterol 3 mg 3 ml INHALATION Q4H PRN #180 ml 06/13/19 06/12/20 Rx (2.5 mg base)/3 mL nebulization soln nitroglycerin 0.2 mg/hr 1 patch TRANSDERMAL QPM #30 ea 11/19/19 06/12/20 Rx transdermal 24 hour patch tramadol 50 mg tablet 50 mg PO Q6H PRN #30 tab 12/06/19 06/12/20 Rx ipratropium 20 mcg-albuterol 100 1 puff INHALATION QID PRN #4 gm 02/18/20 06/12/20 Rx mcg/actuation mist for inhalation sertraline 100 mg tablet 100 mg PO DAILY #90 tab 02/18/20 06/12/20 Rx Tresiba FlexTouch U-100 15 units SUBCUT DAILY 02/26/20 06/12/20 History furosemide 40 mg PO DAILY 02/26/20 06/12/20 History metoprolol succinate 50 mg PO DAILY 02/26/20 06/12/20 History isosorbide mononitrate 60 mg 60 mg PO DAILY #30 tab 02/29/20 06/12/20 Rx tablet,extended release 24 hr memantine 10 mg tablet 10 mg PO BID #180 tab 03/13/20 06/12/20 Rx famotidine 40 mg tablet 40 mg PO DAILY tab 05/01/20 06/12/20 History gentamicin 0.1 % topical ointment 1 applic TOPICAL DAILY 14 Days #30 05/16/20 06/12/20 Rx g warfarin 5 mg tablet See Rx Instructions .ROUTE .COMPLEX 05/21/20 06/12/20 History aspirin 81 mg PO DAILY 06/12/20 06/12/20 History Allergies Allergy/AdvReac Type Severity Reaction Status Date / Time codeine AdvReac Intermediate EMESIS Verified 06/12/20 00:50 Iodinated Contrast Media AdvReac Mild NAUSEA Verified 06/12/20 00:50 Past Med/Surg History Medical History Anemia Anxiety with depression Cardiac ischemia Cellulitis of left leg without foot CKD (chronic kidney disease) stage 3, GFR 30-59 ml/min Cognitive changes Diabetes mellitus type 2, uncontrolled DM (diabetes mellitus) Hearing loss Hypertension Hypotension Subtherapeutic international normalized ratio (INR) Ulceration Surgical History H/O hemicolectomy Hx of CABG Family History Mother Hypertension Social History Smoking Status: Former smoker Tobacco Type: Smokeless Tobacco (Dip or Chew) Second Hand Exposure: No; Hx Alcohol Use: Yes Alcohol type: hard liquor Hx Substance Use: Yes Last Used Substance: Hours (ago) Last Used Substance Other:: MD aware. Substance Use Type Other:: medical marijuana Preferred Language: Occitan Communication Ability: Effective Senior Data Architect Required: No Beliefs That Will Affect Care: None marital status: Current Living Situation: Spouse Other Information That Helps Us Care for You: No Feels Safe at Home: Yes Safety Concerns: Feels Safe At This Time Assistive Devices: None Review of Systems Unobtainable due to cognitive status (Dementia) History obtained per , patient is largely unreliable due to dementia. Physical Exam Vital Signs Vital Signs - 24 hr 06/12/20 00:00 06/12/20 00:05 06/12/20 00:06 Temperature 35.4 C L Temperature Source Rectal Pulse Rate 80 Respiratory Rate 18 Blood Pressure 165/92 H Blood Pressure Mean 116 Pulse Oximetry 93 87 L 100 Oxygen Delivery Method Room Air Room Air Nasal Cannula Oxygen Flow Rate 2 Sepsis Recent Fever Within 48 Hours No Sepsis New/Unexplained Change in Mental Status N/A Sepsis Action Taken by Nursing No Action Required 06/12/20 01:30 Temperature Temperature Source Pulse Rate 87 Respiratory Rate 22 Blood Pressure 173/89 H Blood Pressure Mean 117 Pulse Oximetry 99 Oxygen Delivery Method Nasal Cannula Oxygen Flow Rate 2 Sepsis Recent Fever Within 48 Hours Sepsis New/Unexplained Change in Mental Status Sepsis Action Taken by Nursing Vital signs reviewed. General: Chronically ill 80-year-old male, obese, in no significant distress. HEENT: No scleral icterus, PERRLA, neck supple. Atraumatic. Cardiovascular: Rate controlled and irregular, no extra sounds. Pulmonary: Clear to auscultation bilaterally, normal work of breathing. Abdomen: Soft, nontender, nondistended, positive bowel sounds. Musculoskeletal: Atraumatic, no peripheral edema. GI: Incontinent of a soft brown stool. No gross blood. Neurologic: Patient awake alert and hard of hearing. Follows some commands. Answers questions but repeatedly states "I am cold." Skin: Warm, dry, no rash Course Administered Medications Aspirin (Aspirin 81 Mg Ectab) 81 mg PO DAILY [facility] Stop: 07/12/20 08:59 Last Admin: 06/12/20 09:03 Dose: 81 mg Documented by: [id number] Famotidine (Famotidine 40 Mg Tablet) 40 mg PO DAILY [facility] Stop: 07/12/20 08:59 Last Admin: 06/12/20 09:01 Dose: 40 mg Documented by: [id number] Gentamicin Sulfate (Gentamicin Sulfate 0.1% Cr 15 Gm Tube) 1 appln EXT DAILY [facility] Stop: 06/22/20 08:59 Last Admin: 06/12/20 09:02 Dose: 1 appln Documented by: [id number] Heparin Sodium/Dextrose (Heparin Sodium/Dextrose) 25,000 units in 500 mls @ 23 mls/hr IV .[id number] [facility]; Protocol Stop: 07/12/20 05:29 Last Titration: 06/13/20 03:52 Dose: 1,150 units/hr, 23 mls/hr Documented by: [id number] Cosigned by: [id number] Admin: 06/13/20 00:48 Dose: 1,250 units/hr, 25 mls/hr Documented by: [id number] Cosigned by: [id number] Titration: 06/13/20 00:48 Dose: 1,250 units/hr, 25 mls/hr Documented by: [id number] Cosigned by: [id number] Titration: 06/12/20 21:36 Dose: 1,250 units/hr, 25 mls/hr Documented by: [id number] Cosigned by: [id number] Titration: 06/12/20 20:04 Dose: 0 units/hr, 0 mls/hr Documented by: [id number] Cosigned by: [id number] Titration: 06/12/20 12:53 Dose: 1,400 units/hr, 28 mls/hr Documented by: [id number] Cosigned by: [id number] Admin: 06/12/20 06:01 Dose: 1,500 units/hr, 30 mls/hr Documented by: [id number] Cosigned by: [id number] Ceftriaxone Sodium 2,000 mg/ (Dextrose) 70 mls @ 100 mls/hr IV DAILY@1800 [facility]; Protocol Stop: 06/17/20 17:59 Last Infusion: 06/12/20 20:10 Dose: 0 mls/hr Documented by: [id number] Admin: 06/12/20 18:55 Dose: 100 mls/hr Documented by: [id number] Sodium Chloride (Nss 1000ml) 1,000 mls @ 70 mls/hr IV .[id number] [facility] Stop: 07/12/20 17:59 Last Admin: 06/12/20 18:03 Dose: 70 mls/hr Documented by: [id number] Insulin Aspart (Insulin Aspart 100 Units/Ml 3 Ml Pen) 0 units SC ACHS [facility] Stop: 07/12/20 07:29 Last Admin: 06/12/20 21:35 Dose: 2 units Documented by: [id number] Cosigned by: [id number] Admin: 06/12/20 17:45 Dose: 2 units Documented by: [id number] Cosigned by: [id number] Admin: 06/12/20 12:41 Dose: Not Given Documented by: [id number] Cosigned by: [id number] Admin: 06/12/20 07:42 Dose: 5 units Documented by: [id number] Cosigned by: [id number] Isosorbide Mononitrate (Isosorbide [place] Extended Rel 60 Mg Tabcr) 60 mg PO DAILY [facility] Stop: 07/12/20 08:59 Last Admin: 06/12/20 09:02 Dose: 60 mg Documented by: [id number] Memantine (Memantine Hcl 10 Mg Tab) 10 mg PO BID [facility] Stop: 07/12/20 08:59 Last Admin: 06/12/20 21:33 Dose: 10 mg Documented by: [id number] Admin: 06/12/20 09:03 Dose: 10 mg Documented by: [id number] Metoprolol Succinate (Metoprolol Succ 50mg Ext Rel Tab) 50 mg PO DAILY [facility] Stop: 07/12/20 08:59 Last Admin: 06/12/20 09:04 Dose: 50 mg Documented by: [id number] Nitroglycerin (Nitroglycerin 0.2 Mg/Hr Patch) 1 patch TD QPM [facility] Stop: 07/12/20 20:59 Last Admin: 06/12/20 21:33 Dose: 1 patch Documented by: [id number] Ondansetron HCl (Ondansetron Inj 2 Mg/Ml 2 Ml Vial) 4 mg IV Q6H PRN PRN Reason: Nausea Stop: 07/12/20 04:48 Last Admin: 06/12/20 05:42 Dose: 4 mg Documented by: [id number] Sertraline HCl (Sertraline Hcl 100 Mg Tablet) 100 mg PO DAILY [facility] Stop: 07/12/20 08:59 Last Admin: 06/12/20 09:04 Dose: 100 mg Documented by: [id number] Tamsulosin HCl (Tamsulosin Hcl 0.4 Mg Cap) 0.8 mg PO DAILY [facility] Stop: 07/12/20 08:59 Last Admin: 06/12/20 09:02 Dose: 0.8 mg Documented by: [id number] Thiamine HCl (Thiamine Hcl 100 Mg Tab) 100 mg PO BID [facility] Stop: 07/12/20 08:59 Last Admin: 06/12/20 21:39 Dose: 100 mg Documented by: [id number] Admin: 06/12/20 09:02 Dose: 100 mg Documented by: [id number] Vitamin D (Cholecalciferol 1,000 Units 25 Mcg Tab) 5,000 units PO DAILY [facility] Stop: 07/12/20 08:59 Last Admin: 06/12/20 09:03 Dose: 5,000 units Documented by: [id number] Discontinued Medications Heparin Sodium/Dextrose (Heparin Iv Standard *No* Bolus) 1 ea IV Q15M [facility]; Protocol Stop: 07/12/20 05:22 Last Admin: 06/12/20 17:50 Dose: Not Given Documented by: [id number] Admin: 06/12/20 17:50 Dose: Not Given Documented by: [id number] Admin: 06/12/20 17:44 Dose: Not Given Documented by: [id number] Sodium Chloride (Nss 1000ml) 1,000 mls @ 80 mls/hr IV .[id number] [facility] Stop: 06/12/20 12:59 Last Infusion: 06/12/20 13:57 Dose: 0 mls/hr Documented by: [id number] Admin: 06/12/20 00:43 Dose: 80 mls/hr Documented by: [id number] Piperacillin Sod/Tazobactam Sod (Zosyn) 4.5 gm in 120 mls @ 240 mls/hr IV NOW ONE Stop: 06/12/20 01:17 Last Infusion: 06/12/20 02:09 Dose: 0 mls/hr Documented by: [id number] Admin: 06/12/20 01:27 Dose: 240 mls/hr Documented by: [id number] Piperacillin Sod/Tazobactam (Sod 4.5 gm/ Dextrose) 120 mls @ 30 mls/hr IV Q8H [facility]; Protocol Stop: 06/22/20 05:59 Last Infusion: 06/12/20 17:44 Dose: 0 mls/hr Documented by: [id number] Admin: 06/12/20 13:24 Dose: 30 mls/hr Documented by: [id number] Infusion: 06/12/20 10:49 Dose: 0 mls/hr Documented by: [id number] Admin: 06/12/20 06:16 Dose: 30 mls/hr Documented by: [id number] Daptomycin 500 mg/ Syringe 10 mls @ 5 mls/min IV Q24H [facility]; Protocol Stop: 06/22/20 05:59 Last Admin: 06/12/20 06:14 Dose: 5 mls/min Documented by: [id number] Sodium Chloride (Nss) 500 mls @ 70 mls/hr IV .[id number] [facility] Stop: 07/12/20 17:44 Last Admin: 06/12/20 18:31 Dose: Not Given Documented by: [id number] Insulin Glargine (Insulin Glargine Solostar 100 Units/Ml 3 Ml Pen) 15 units SC DAILY [facility] Stop: 07/12/20 08:59 Last Admin: 06/12/20 09:00 Dose: 15 units Documented by: [id number] Cosigned by: [id number] Miscellaneous Information (Piperacill/Tazobac Consult Active) 1 ea N/A UD PRN PRN Reason: Consult Stop: 07/12/20 00:47 Last Admin: 06/12/20 01:27 Dose: 1 ea Documented by: [id number] Pneumococcal Polyvalent Vaccine (Pneumococcal Polysaccharides 25 Mcg/0.5 Ml Vial/Syr) 25 mcg IM .ONCE ONE Stop: 06/12/20 05:17 Last Admin: 06/12/20 09:05 Dose: 25 mcg Documented by: [id number] Medical Decision Making Differential Diagnosis Differential diagnosis: Etiologies such as biliary colic, cholecystitis, hepatitis, pancreatitis, cardiac disease, pancreatitis, gastritis, peptic ulcer disease, appendicitis, cystitis, diverticulitis, mesenteric ischemia, inflammatory bowel disease, ileus, bowel obstruction, testicular torsion, aortic pathology, shingles, as well as others were considered. Medical Records Attestation: I reviewed the patient's medical records. Home Medications Current Medication List: was personally reviewed by me Laboratory Data Attestation: I reviewed the patient's lab results. Result diagrams: 06/12/20 00:15 06/12/20 00:15 Lab Results 06/12/20 06/12/20 06/12/20 Range/Units 00:15 00:15 00:15 WBC 9.41 (4.8-10.8) K/uL RBC 4.66 L (4.7-6.1) M/uL Hgb 14.4 (14.0-18.0) g/dL Hct 43.9 (42-52) % MCV 94.2 (80-100) fL MCH 30.9 (25-34) pg MCHC 32.8 (32-36) g/dL RDW Std Deviation 58.7 H (36.4-46.3) fL RDW Coeff of Marie 17.0 H (11.5-14.5) % Plt Count 199 (130-400) K/uL MPV 10.6 H (7.4-10.4) fL Immature Gran % (Auto) 0.2 % Neut % (Auto) 71.9 % Lymph % (Auto) 18.4 % [place] % (Auto) 7.9 % Eos % (Auto) 1.5 % Baso % (Auto) 0.1 % Neut # (Auto) 6.77 H (1.4-6.5) K/uL Lymph # (Auto) 1.73 (1.2-3.4) K/uL [place] # (Auto) 0.74 H (0.11-0.59) K/uL Eos # (Auto) 0.14 (0-0.5) K/uL Baso # (Auto) 0.01 (0-0.2) K/uL Immature Gran # (Auto) 0.02 (0.00-0.02) K/uL PT 12.2 H (9.0-12.0) Seconds INR 1.2 H (0.9-1.1) APTT 26.9 (21.0-31.0) Seconds PTT Ratio 1.0 Sodium 135 L (136-145) mmol/L Potassium 3.9 (3.5-5.1) mmol/L Chloride 99 (98-107) mmol/L Carbon Dioxide 27 (21-32) mmol/L Anion Gap 10.0 (3-11) BUN 27 H (7-18) mg/dl Creatinine 1.95 H (0.6-1.4) mg/dl Est Cr Clr Drug Dosing 35.4 ml/min Est GFR ( Amer) 36.3 Est GFR (Non-Af Amer) 31.3 BUN/Creatinine Ratio 13.8 (10-20) Glucose 162 H (70-99) mg/dl Lactate (0.4-2.0) mmol/L Calcium 9.5 (8.5-10.1) mg/dl Total Bilirubin 1.1 H (0.2-1) mg/dl AST 21 (15-37) U/L ALT 17 (12-78) U/L Alkaline Phosphatase 96 (45-117) U/L Total Protein 7.4 (6.4-8.2) gm/dl Albumin 3.4 (3.4-5.0) gm/dl Globulin 4.0 (2.5-4.0) gm/dl Albumin/Globulin Ratio 0.9 (0.9-2) Lipase 49 L (73-393) U/L Urine Color Urine Appearance (Clear) Urine pH (4.5-7.5) Ur Specific [place] (1.000-1.030) Urine Protein (Negative) Urine Glucose (UA) (Negative) Urine Ketones (Negative) Urine Blood (Negative) Urine Nitrite (Negative) Urine Bilirubin (Negative) Urine Urobilinogen (Negative) Ur Leukocyte Esterase (Negative) Urine WBC (Auto) (0-5) /hpf Urine RBC (Auto) (0-4) /hpf U Hyaline Cast (Auto) (0-5) /lpf U Epithel Cells (Auto) (0-5) /lpf Urine Bacteria (Auto) (Negative) Urine Yeast 06/12/20 06/12/20 06/12/20 Range/Units 00:20 00:43 02:42 WBC (4.8-10.8) K/uL RBC (4.7-6.1) M/uL Hgb (14.0-18.0) g/dL Hct (42-52) % MCV (80-100) fL MCH (25-34) pg MCHC (32-36) g/dL RDW Std Deviation (36.4-46.3) fL RDW Coeff of Marie (11.5-14.5) % Plt Count (130-400) K/uL MPV (7.4-10.4) fL Immature Gran % (Auto) % Neut % (Auto) % Lymph % (Auto) % [place] % (Auto) % Eos % (Auto) % Baso % (Auto) % Neut # (Auto) (1.4-6.5) K/uL Lymph # (Auto) (1.2-3.4) K/uL [place] # (Auto) (0.11-0.59) K/uL Eos # (Auto) (0-0.5) K/uL Baso # (Auto) (0-0.2) K/uL Immature Gran # (Auto) (0.00-0.02) K/uL PT (9.0-12.0) Seconds INR (0.9-1.1) APTT (21.0-31.0) Seconds PTT Ratio Sodium (136-145) mmol/L Potassium (3.5-5.1) mmol/L Chloride (98-107) mmol/L Carbon Dioxide (21-32) mmol/L Anion Gap (3-11) BUN (7-18) mg/dl Creatinine (0.6-1.4) mg/dl Est Cr Clr Drug Dosing ml/min Est GFR ( Amer) Est GFR (Non-Af Amer) BUN/Creatinine Ratio (10-20) Glucose (70-99) mg/dl Lactate 3.5 H* 1.6 (0.4-2.0) mmol/L Calcium (8.5-10.1) mg/dl Total Bilirubin (0.2-1) mg/dl AST (15-37) U/L ALT (12-78) U/L Alkaline Phosphatase (45-117) U/L Total Protein (6.4-8.2) gm/dl Albumin (3.4-5.0) gm/dl Globulin (2.5-4.0) gm/dl Albumin/Globulin Ratio (0.9-2) Lipase (73-393) U/L Urine Color Yellow Urine Appearance Turbid A (Clear) Urine pH 6.5 (4.5-7.5) Ur Specific [place] 1.011 (1.000-1.030) Urine Protein 2+ H (Negative) Urine Glucose (UA) Negative (Negative) Urine Ketones Negative (Negative) Urine Blood 3+ H (Negative) Urine Nitrite Positive A (Negative) Urine Bilirubin Negative (Negative) Urine Urobilinogen Negative (Negative) Ur Leukocyte Esterase 3+ H (Negative) Urine WBC (Auto) >30 H (0-5) /hpf Urine RBC (Auto) 10-30 H (0-4) /hpf U Hyaline Cast (Auto) 1-5 (0-5) /lpf U Epithel Cells (Auto) 5-10 H (0-5) /lpf Urine Bacteria (Auto) 2+ H (Negative) Urine Yeast Not Reportable Imaging Data Radiologist's Impression: CT abdomen pelvis without contrast: Mitral valve and coronary calcification. Mild aortic root calcification. Moderate right pleural effusion. Minimal cirrhotic appearance to the liver. Right segment 6 subcapsular 2.5 cm isodense lesion with peripheral calcification. Multiple dependent gallbladder stones near the neck of the gallbladder. Splenic vascular calcifications. Lipomatosis of the pancreas. Abdominal aorta and visceral branches calcifications. Mild atrophy of the bilateral kidneys. Right posterior abdominal wall 3.9 x 3.4 x 6.5 cm oval soft tissue density with peripheral calcification it is anterior to the atrophic quadratus lumborum muscle Intra-abdominal and pelvic intraperitoneal mesenteric lipomatosis. Suture line at the right colon. Moderate sigmoid diverticulosis. Negative for diverticulitis. Mild circumferential mucosal thickening of the rectum. Mild proctitis may be considered. Mild lower lumbar spine degenerative changes. Non-distended partially thick-walled urinary bladder. Penile prosthesis and pump. Radiologist Dmitry Red MD ECG Data Attestation: I personally reviewed and interpreted this ECG as follows: Indication: + abdominal pain Rate (beats per minute): 85 Rhythm: + atrial fibrillation ECG Intervals/blocks: + Right Bundle branch block and + Normal QT-c (566) ECG ST segments: + Nonspecific ST abnormalities and + repolarization a bnormalities ECG Findings: + Q waves (Inferior); no PACs and no PVCs Blood Pressure Blood Pressure Findings: Elevated blood pressure Blood Pressure Disposition: further management by hospitalist MDM Narrative This patient was evaluated and appeared to be in some discomfort. IV access was obtained and laboratory work was drawn. Patient was hydrated with normal saline solution. An order for cardiac monitoring was placed and the patient is noted to be in a rate controlled atrial fibrillation. Patient laboratory work reveals a normal white blood cell count, elevated lactate at 3.5. On repeat 2 hours later after IV normal saline solution, the lactate was 1.6. Blood cultures were obtained. The patient did receive 4.5 g of IV Zosyn. The etiology of the infection seems to be coming from the patient's urine. This will be sent for culture. CT of the abdomen pelvis was obtained and is read as above. There is no evidence of acute process, chronic changes noted. Patient's case was discussed with hospitalist who will evaluate the patient for admission and further management. Patient's is aware of the plan and agrees. Impression & Plan Acute UTI, History of urinary self-catheterization, Elevated lactic acid level Discharge Plan Visit Data Chief Complaint: Abdominal Pain Stated Complaint: ABDOMINAL PAIN ED Provider: Yvonne Monroy Discharge Problem: Acute UTI, History of urinary self-catheterization, Elevated lactic acid level Patient Disposition: Admitted As Inpatient Discharge Instructions Interventions: ED Discharge Assessment Last Done: 06/12/20 04:19
[2020-06-12] MEDS: ONDANSETRON INJ 2 MG/ML 2 ML VIAL IV PRN (05:42)
[2020-06-12] MEDS ORDERED: DAPTOmycin 500 MG in SYRINGE 0 ML IV SCH (06:00)
[2020-06-12] MEDS: HEPARIN SODIUM/DEXTROSE 25,000 UNITS/500 ML BAG IV SCH (06:01)
[2020-06-12] MEDS: PIPERACILLIN/TAZOBACTAM 4.5 GM in DEXTROSE 5% 100 ML IV SCH ×2 (06:16→13:24)
[2020-06-12] MEDS: INSULIN ASPART 100 UNITS/ML 3 ML PEN SC SCH ×4 (07:42→21:35)
--- NOTE | 2020-06-12 07:44 | CT Scan Report ---
CT SCAN OF THE ABDOMEN AND PELVIS WITHOUT CONTRAST CLINICAL HISTORY: Diffuse abdominal pain. COMPARISON STUDY: November 06, 2015 TECHNIQUE: CT scan of the abdomen and pelvis was performed from the lung bases to the proximal femurs . Images are reviewed in the axial, sagittal, and coronal planes. IV contrast was not administered fo r this examination. A dose lowering technique was utilized adhering to the principles of ALARA. CT DOSE: 2412.30 mGycm FINDINGS: Lower chest: There are extensive coronary artery calcifications. There is a small moderate right pleu ral effusion. There are dependent atelectatic changes. Liver: There is a partially rim calcified 2.5 cm right hepatic lobe hypodensity. Gallbladder: Cholelithiasis Spleen: Normal in size and attenuation. Pancreas: There are few pancreatic head calcifications possibly related to chronic pancreatitis Adrenal glands: Unremarkable. Kidneys: The unenhanced kidneys are normal in size without hydronephrosis. There is no contour deform ing renal mass lesion. No renal calculi are identified. Bowel: There are no transition zones to indicate bowel obstruction. There is colonic diverticulosis. There is no evidence of acute diverticulitis. There is borderline rectal wall thickening. There are p resumed postsurgical changes of a partial right colectomy. Peritoneum: There is no intraperitoneal free air or abdominal ascites. There is a stable partially ca lcified 4 cm right retroperitoneal nodule located lateral to the iliac wing Vasculature: The abdominal aorta is normal in course and caliber. Adenopathy: None. Pelvic viscera: There is evidence for a penile implant. Skeletal structures: No destructive osseous lesions are seen. IMPRESSION: 1. Eqvev-do-rcexsqwe right pleural effusion with basilar atelectatic change 2. Cholelithiasis 3. Equivocal hepatic cirrhosis 4. Stable partially calcified 4 cm right retroperitoneal nodule 5. Partially rim calcified 2.5 cm hypodense lesion within the right hepatic lobe 6. No evidence of bowel obstruction. No evidence of free air 7. Diverticulosis. No evidence of acute diverticulitis 8. Borderline rectal wall thickening ACT 112: Negative or not required by law. Electronically signed by: Nagi Springer M.D. 06/12/2020 7:42 AM
--- NOTE | 2020-06-12 07:58 | XRay Report ---
SINGLE VIEW CHEST CLINICAL HISTORY: Generalized abdominal pain. FINDINGS: 2 AP, portable, upright chest radiographs are compared to study dated 02/26/2020 and correla brian with chest CT dated 02/10/2019. The examination is degraded by portable technique and patient rotat ion. A right subclavian central venous infusion port is unchanged in position. The patient is status post midline sternotomy. The heart is enlarged noting atherosclerotic calcification of the thoracic a nick. There is pulmonary vascular congestion. There are small pleural effusions with bibasilar atelec tasis. Fluid is seen tracking along the right minor fissure. No pneumothorax is seen. The skeletal st ructures are osteopenic. The bony thorax is grossly intact. IMPRESSION: 1. Cardiomegaly with evidence of congestive failure. 2. Small pleural effusions with bibasilar atelectasis. ACT 112: Negative or not required by law. Electronically signed by: Hi Abdul M.D. 06/12/2020 7:57 AM
--- NOTE | 2020-06-12 08:06 | Hospitalist Progress Note ---
Date of Service June 12, 2020 Assessment & Plan (1) UTI (urinary tract infection): Jose Townsend is an 80-year-old gentleman with a notable history of BPH with obstruction and LUTS, ischemic cardiomyopathy, combined HFpEF/HFrEF, CAD s/p CABG x 2 (venous graft @ PDA and 1st diagonol) alongside prior PCI with bare metal stent placement (with STEMI in 2010), HTN, HLD, prior DVT, moderate-severe , permanent atrial fibrillation, COPD, DM2, tobacco abuse disorder, and CKD Stage III who presented to [facility] on 06/12 for myalgias, urinary frequency, loose stools, and substernal chest pain, subsequently found to have a UA suggestive of a UTI and an elevated troponin. He is currently hemodynamically stable. Urinary Tract Infection - Clinically, reports several days of urinary frequency, malodorous urine, myalgias, and loose stools - Has history of BPH w/ obstruction and LUTS alongside multiple UTIs over last few years, with infections including E. coli, Klebsiella, and Enterococcus - UA on admission was significant for turbid-appearing urine, 2+ protein, 3+ blood, positive nitrites, 3+ LE, >30 uWBC, 10-30 uRBC, and 2+ bacteria - Await urine cultures / sensitivities - Discontinued IV daptomycin and IV Zosyn - Initiate ceftriaxone 1g IV daily - CBC tomorrow AM Acute Kidney Injury (in setting of CKD Stage III) - Patient's baseline Cr is 1.5 - 1.75 - Admission Cr and BUN found to be elevated at 1.95 and 32 - Likely prerenal in setting of recent illness and suspected dehydration - Continue mIVF of NSS @ 70cc/hr -- close fluid status monitoring in setting of previous CHF history - BMP qAM Elevated troponin - Clinically, patient reported significant chest pain yesterday evening that has subsequently resolved overnight - Of note, he does have an appreciable cardiac history, including: ischemic cardiomyopathy, combined HFpEF/HFrEF, CAD s/p CABG x 2 (venous graft @ PDA and 1st diagonol) alongside prior PCI with bare metal stent placement (with STEMI in 2010), HTN, HLD - Troponin elevated upon admission 0.28, and 0.58 at 12pm today -- continue to trend - Given his current UTI, VICTORIANO, and notable cardiac history, suspect that this elevated troponin is likely 2/2 demand ischemia d/t dehydration from poor PO intake, recent GI illness Grade III Pressure Ulcer - Pressure ulcer of left leg -- follows with wound care in outpatient setting - Previous culture includes coagulase negative staph, Enterobacter, E. coli, Enterococcus faecalis - Is not currently showing signs of infection here -- discontinue IV dapto, Zosyn. Continue ceftriaxone as above. - Wound care following while here Chronic Medical Problems Dementia: Continue memantine. Permanent AFib: continue metoprolol succinate 50mg daily, plan to resume warfarin tomorrow CAD: continue isosorbide mononitrate 60mg PO daily, nitroglycerin 0.2mg/h transdermal patch, ASA 81 COPD: Continue home nebulizer therapy BPH w/ obstruction, LUTS: Continue home tamulosin Peripheral Neuropathy: Continue home thiamine, tramadol PAD: s/p recent procedure with Dr. Parra Dispo: med/surg with tele Diet: heart healthy, dm2 diet PPX: heparin gtt, anticipate change to warfarin tomorrow (was on heparin gtt since INR 1.2 --> wait until INR was therapeutic with home warfarin) Code: FULL CODE (2) DM (diabetes mellitus): (3) Peripheral arterial disease: (4) Pressure ulcer of left leg, stage 3: (5) Type 2 DM with CKD stage 3 and hypertension: (6) Pressure ulcer of left leg, unstageable: (7) Hyperlipidemia: (8) Hypokalemia: (9) Port-A-Cath in place: (10) IRVING (dyspnea on exertion): (11) Permanent atrial fibrillation: (12) BPH loc w urin obs/LUTS: (13) GERD (gastroesophageal reflux disease): (14) Severe aortic stenosis: Admission and Anticipated Discharge Date Admission Date: June 12, 2020 Supervising Physician Co-Signing Physician Notes I personally examined the patient and verified all lema points of history and exam, discussed case, and agree with decision making with Dr Bloom. no meaningful HPI or ROS. present - had a lot of urinary urgency/frequency and foul smelling. leg ulcer healing well. doesn't eat well/much lately vitals noted nad heent nc at mmm. L leg ulcer dressed no tracking erythema pictures show it to look clean and healing. UTI - change to rocephin, follow up cultures leg ulcer - L leg pressure ulcer stage 3 - appearing ot be healing - does not show overt need for abx coverage - stop dapto / zosyn, continue local care, follow dehydration - fluids, follow intake myocardial demand ischemia - probably from dehydration as much as anything - fortunately was mild. otherwise as above Subjective Difficult to obtain history from patient at the time of visit 2/2 somnolence. NAEO. Patient does report a resolution of his chest pain and shortness of breath compared to last night, but still reports feeling overall "not great." On review of his history, he does report feeling ill the last few days, "not peeing right." He endorses urinary frequency, but denies dysuria at this time. He denies any pain right now. Does endorse a little bit of nausea, but no vomiting. Update 1700: sitting at the bedside. Patient continues to be somnolent and minimally responsive to questioning. On clarification of the history, reports that the patient has had progressively decreased p.o. intake over the last several days, eating minimallywhich is not normal for him. She also notes that he has reported to her that his urine has been smelling, and that he has been peeing more often than usual. Reports that he had diarrhea x1 yesterday, and also reported that he felt like he needed to vomit. However, does not seem like this was going on for more than yesterday. Review of Systems Review of Systems: Unobtainable due to cognitive status What could be obtained is in HPI -- denies current CP, SOB, abdominal pain. Does note some nausea. Physical Exam Constitutional: Somnolent appearing 80-year-old gentleman who is lying back in his hospital bed, intermittently responsive to questioning between falling back asleep. He is A&O x 3 (minus time of day). NAD. Respiratory: Normal respiratory effort with symmetric expansion of chest. Lungs CTAB w/o crackles or wheezes. Cardiovascular: Normal rate with irregular rhythm (perm Afib). Heart sounds are distant -- S1 and S2 are present, however, without appreciable m/r/g. Gastrointestinal (Abdomen): Abdomen is soft, nontender, and nondistended to palpation. No appreciable organomegaly. Skin: Wound is currently wrapped on the left lower extremity. There is no signs of surrounding erythema or tenderness to palpation. Results & Data Results & Data ([facility]) Vital Signs (Past 12 Hours) Vital Signs Temp Pulse Pulse Resp BP BP Pulse Ox 06/12/20 08:00 36.8 C 90 22 171/88 H 91 06/12/20 04:50 36.2 C L 60 16 188/85 H 06/12/20 03:59 89 20 152/89 H 100 06/12/20 01:30 87 22 173/89 H 99 06/12/20 00:06 100 06/12/20 00:05 87 L 06/12/20 00:00 35.4 C L 80 18 165/92 H 93 Resident Activity Tracking Resident Involvement: Resident Care Provided Care Provided: Adult Hospital Medicine (1) DM (diabetes mellitus) Diabetes mellitus complication status: with unspecified complications Diabetes mellitus termite exterminator helper insulin use: with termite exterminator helper use Diabetes mellitus type: type 2 Qualified Code(s): E11.8 - Type 2 diabetes mellitus with unspecified complications; Z79.4 - retirement (current) use of insulin
[2020-06-12] MEDS ORDERED: INSULIN GLARGINE SOLOSTAR 100 UNITS/ML 3 ML PEN SC SCH (09:00)
[2020-06-12] MEDS: FAMOTIDINE 40 MG TABLET PO SCH (09:01)
[2020-06-12] MEDS: FUROSEMIDE 40 MG TAB PO SCH (09:01)
[2020-06-12] MEDS: GENTAMICIN SULFATE 0.1% CR 15 GM TUBE EXT SCH (09:02)
[2020-06-12] MEDS: ISOSORBIDE MONO EXTENDED REL 60 MG TABCR PO SCH (09:02)
[2020-06-12] MEDS: THIAMINE HCL 100 MG TAB PO SCH ×2 (09:02→21:39)
[2020-06-12] MEDS: TAMSULOSIN HCL 0.4 MG CAP PO SCH (09:02)
[2020-06-12] MEDS: MEMANTINE HCL 10 MG TAB PO SCH ×2 (09:03→21:33)
[2020-06-12] MEDS: CHOLECALCIFEROL 1,000 UNITS 25 MCG TAB PO SCH (09:03)
[2020-06-12] MEDS: ASPIRIN 81 MG ECTAB PO SCH (09:03)
[2020-06-12] MEDS: METOPROLOL SUCC 50MG EXT REL TAB PO SCH (09:04)
[2020-06-12] MEDS: SERTRALINE HCL 100 MG TABLET PO SCH (09:04)
[2020-06-12 12:51] LABS: Partial Thromboplastin Ratio 2.5
[2020-06-12 12:52] LABS: Partial Thromboplastin Time 70.7 Seconds (21.0-31.0)
[2020-06-12] MEDS ORDERED: WARFARIN SOD 10 MG TAB PO SCH (16:00)
[2020-06-12] MEDS: Heparin IV Standard *NO* Bolus IV SCH ×2 (17:44→17:50)
[2020-06-12] MEDS ORDERED: SODIUM CHLORIDE 0.9% 500 ML IV SCH (17:45)
[2020-06-12] MEDS: SODIUM CHLORIDE 0.9% 1000ML 1,000 ML IV SCH (18:03)
[2020-06-12] MEDS: cefTRIAXone SODIUM 2,000 MG in DEXTROSE 5% 50 ML IV SCH (18:55)
[2020-06-12 19:53] LABS: Partial Thromboplastin Ratio 3.7
[2020-06-12 19:56] LABS: Partial Thromboplastin Time 103.6 Seconds (21.0-31.0)
[2020-06-12] MEDS ORDERED: ATORVASTATIN 40 MG TAB PO SCH (21:00)
[2020-06-12] MEDS: NITROGLYCERIN 0.2 MG/HR PATCH TD SCH (21:33)
[2020-06-13] MEDS: HEPARIN SODIUM/DEXTROSE 25,000 UNITS/500 ML BAG IV SCH (00:48)
[2020-06-13 03:45] LABS: Partial Thromboplastin Ratio 2.6
[2020-06-13 03:52] LABS: Partial Thromboplastin Time 71.7 Seconds (21.0-31.0)
--- NOTE | 2020-06-13 05:38 | Electrocardiogram Report ---
Test Reason : Blood Pressure : / mmHG Vent. Rate : 085 BPM Atrial Rate : 051 BPM P-R Int : 000 ms QRS Dur : 160 ms QT Int : 476 ms P-R-T Axes : 000 234 009 degrees QTc Int : 566 ms Atrial fibrillation Right bundle branch block Inferior infarct (cited on or before 26-OCT-2016) Abnormal ECG When compared with ECG of 26-FEB-2020 22:18, QT has lengthened Confirmed by Jordin Posada ([id number]) on 06/13/2020 5:38:18 AM Referred By: REFERRED SELF Confirmed By:Jordin Posada
[2020-06-13] MEDS ORDERED: DAPTOmycin 325 MG in SYRINGE 0 ML IV SCH (06:00)
[2020-06-13 06:35] LABS: Basophils # (auto) 0.02 K/uL (0-0.2); Basophils % (auto) 0.2 %; Eosinophils # (auto) 0.14 K/uL (0-0.5); Eosinophils % (auto) 1.6 %; Hemoglobin 12.2 g/dL (14.0-18.0); Immature Granulocytes # (auto) 0.02 K/uL (0.00-0.02); Immature Granulocytes % (auto) 0.2 %; Lymphocytes # (auto) 1.14 K/uL (1.2-3.4); Lymphocytes % (auto) 12.7 %; Mean Corpuscular Hemoglobin 30.9 pg (25-34); Mean Corpuscular Volume 93.7 fL (80-100); Mean Platelet Volume 10.5 fL (7.4-10.4); Monocytes # (auto) 0.74 K/uL (0.11-0.59); Monocytes % (auto) 8.2 %; Neutrophils # (auto) 6.93 K/uL (1.4-6.5); Neutrophils % (auto) 77.1 %; Platelet Count 157 K/uL (130-400); RDW Coefficient of Variation 16.8 % (11.5-14.5); RDW Standard Deviation 57.6 fL (36.4-46.3); Red Blood Count 3.95 M/uL (4.7-6.1); White Blood Count 8.99 K/uL (4.8-10.8)
[2020-06-13 06:55] LABS: INR 1.7 (0.9-1.1); Partial Thromboplastin Ratio 2.6; Prothrombin Time 17.1 Seconds (9.0-12.0)
[2020-06-13 06:56] LABS: Partial Thromboplastin Time 73.9 Seconds (21.0-31.0)
[2020-06-13 07:12] LABS: Albumin Level 2.5 gm/dl (3.4-5.0); BUN Creatinine Ratio 14.3 (10-20); Calcium 8.2 mg/dl (8.5-10.1); Est GFR (African American) 42.9; Magnesium 1.6 mg/dl (1.8-2.4); Potassium 3.7 mmol/L (3.5-5.1)
[2020-06-13 07:19] LABS: Albumin Globulin Ratio 0.8 (0.9-2); Bilirubin,Total 0.6 mg/dl (0.2-1); Globulin 3.2 gm/dl (2.5-4.0); Total Protein 5.7 gm/dl (6.4-8.2)
[2020-06-13] MEDS: INSULIN ASPART 100 UNITS/ML 3 ML PEN SC SCH ×4 (07:56→20:52)
[2020-06-13] MEDS: MEMANTINE HCL 10 MG TAB PO SCH ×2 (07:57→20:36)
[2020-06-13] MEDS: THIAMINE HCL 100 MG TAB PO SCH ×2 (07:57→20:34)
[2020-06-13] MEDS: SERTRALINE HCL 100 MG TABLET PO SCH (07:57)
[2020-06-13] MEDS: CHOLECALCIFEROL 1,000 UNITS 25 MCG TAB PO SCH (07:58)
[2020-06-13] MEDS: TAMSULOSIN HCL 0.4 MG CAP PO SCH (07:58)
[2020-06-13] MEDS: ASPIRIN 81 MG ECTAB PO SCH (07:59)
[2020-06-13] MEDS: METOPROLOL SUCC 50MG EXT REL TAB PO SCH (07:59)
[2020-06-13] MEDS: FAMOTIDINE 40 MG TABLET PO SCH (07:59)
[2020-06-13] MEDS: ISOSORBIDE MONO EXTENDED REL 60 MG TABCR PO SCH (07:59)
[2020-06-13] MEDS: INSULIN GLARGINE SOLOSTAR 100 UNITS/ML 3 ML PEN SC SCH (08:00)
[2020-06-13 08:14] LABS: Estimated Average Glucose 157 mg/dl; Hemoglobin A1C 7.1 % (4.5-5.6)
[2020-06-13] MEDS: SODIUM CHLORIDE 0.9% 1000ML 1,000 ML IV SCH ×2 (09:15→23:38)
[2020-06-13 10:35] LABS: Partial Thromboplastin Ratio 2.6
[2020-06-13 10:54] LABS: Partial Thromboplastin Time 71.2 Seconds (21.0-31.0)
[2020-06-13] MEDS: GENTAMICIN SULFATE 0.1% CR 15 GM TUBE EXT SCH (11:36)
--- NOTE | 2020-06-13 13:43 | Hospitalist Progress Note ---
Date of Service June 13, 2020 Assessment & Plan (1) UTI (urinary tract infection): Jose Townsend is an 80-year-old gentleman with a notable history of BPH with obstruction and LUTS, ischemic cardiomyopathy, combined HFpEF/HFrEF, CAD s/p CABG x 2 (venous graft @ PDA and 1st diagonol) alongside prior PCI with bare metal stent placement (with STEMI in 2010), HTN, HLD, prior DVT, moderate-severe , permanent atrial fibrillation, COPD, DM2, tobacco abuse disorder, and CKD Stage III who presented to [facility] on 06/12 for myalgias, urinary frequency, loose stools, and substernal chest pain, subsequently found to have a UA suggestive of a UTI and an elevated troponin. He is currently hemodynamically stable. Urinary Tract Infection - Clinically, reports several days of urinary frequency, malodorous urine, myalgias, and loose stools - Has history of BPH w/ obstruction and LUTS alongside multiple UTIs over last few years, with infections including E. coli, Klebsiella, and Enterococcus - UA on admission was significant for turbid-appearing urine, 2+ protein, 3+ blood, positive nitrites, 3+ LE, >30 uWBC, 10-30 uRBC, and 2+ bacteria - Await urine cultures / sensitivities - Continue ceftriaxone 1g IV daily - CBC tomorrow AM Acute Kidney Injury (in setting of CKD Stage III) - Patient's baseline Cr is 1.5 - 1.75 - Admission Cr and BUN found to be elevated at 1.95 and 32 - Likely prerenal due to dehydration - Creatinine 1.70 today--back to baseline - Continue mIVF of NSS @ 70cc/hr -- close fluid status monitoring in setting of previous CHF history - BMP qAM Elevated troponin - Clinically, patient reported significant chest pain that has subsequently resolved - Of note, he does have an appreciable cardiac history, including: ischemic cardiomyopathy, combined HFpEF/HFrEF, CAD s/p CABG x 2 (venous graft @ PDA and 1st diagonol) alongside prior PCI with bare metal stent placement (with STEMI in 2010), HTN, HLD - Troponin elevated upon admission up to 0.817 yesterday, down to 0.813 today - Given his current UTI, VICTORIANO, and notable cardiac history, suspect that this elevated troponin is likely 2/2 demand ischemia d/t dehydration from poor PO intake, recent GI illness Grade III Pressure Ulcer - Pressure ulcer of left leg -- follows with wound care in outpatient setting - Previous culture includes coagulase negative staph, Enterobacter, E. coli, Enterococcus faecalis - Is not currently showing signs of infection here -- discontinued IV dapto, Zosyn - Wound care following while here Chronic Medical Problems Dementia: Continue memantine. Permanent AFib: continue metoprolol succinate 50mg daily, plan to resume warfarin tomorrow CAD: continue isosorbide mononitrate 60mg PO daily, nitroglycerin 0.2mg/h transdermal patch, ASA 81 COPD: Continue home nebulizer therapy BPH w/ obstruction, LUTS: Continue home tamulosin Peripheral Neuropathy: Continue home thiamine, tramadol PAD: s/p recent procedure with Dr. Parra Dispo: med/surg Diet: heart healthy, dm2 diet PPX: heparin gtt, anticipate change to warfarin tomorrow (was on heparin gtt since INR 1.2. Today 1.7-->wait until INR at therapeutic level of 2-3) Code: FULL CODE (2) DM (diabetes mellitus): (3) Peripheral arterial disease: (4) Pressure ulcer of left leg, stage 3: (5) Type 2 DM with CKD stage 3 and hypertension: (6) Pressure ulcer of left leg, unstageable: (7) Hyperlipidemia: (8) Hypokalemia: (9) Port-A-Cath in place: (10) IRVING (dyspnea on exertion): (11) Permanent atrial fibrillation: (12) BPH loc w urin obs/LUTS: (13) GERD (gastroesophageal reflux disease): (14) Severe aortic stenosis: Admission and Anticipated Discharge Date Admission Date: June 12, 2020 Supervising Physician Co-Signing Physician Notes I personally examined the patient and verified all lema points of history and exam, discussed case, and agree with decision making with Dr Alvarenga. only real HPI is that he wants to go home vitals noted nad heent nc at mmm. breathing unlabored no accessory muscles good effort skin no rashes no pallor or icterus UTI - rocephin pending ID/S leg ulcer - L leg pressure ulcer stage 3 - appearing ot be healing - does not show overt need for abx coverage - ongoing local care dehydration - fluids, follow intake - doing better myocardial demand ischemia - probably from dehydration as much as anything - fortunately was mild. otherwise as above, stable for med surg, PT/OT to assist in discharge planning Subjective Patient reports feeling well today. Expresses multiple times while I am in the room that he wants to go home. I explain that once culture sensitivities come back for his infection we will be able to transition to oral medications and send him home. He denies CP, palpitations, SOB, cough, abdominal pain, fever, chills. Review of Systems Review of Systems: All systems reviewed & are unremarkable except as noted in Subjective Physical Exam Physical Exam: General--The patient is drowsy, well developed and well nourished, normocephalic and atraumatic, lying in bed and in no acute distress. HEENT--PERRL, EOMI, mucous membranes and oropharynx dry. Heart--normal S1 and S2. No murmurs, rubs or gallops. Lungs--clear bilaterally, no respiratory distress, no accessory muscle use. Abdomen--normal bowel sounds and soft. Nontender. Nondistended. Extremities--no cyanosis or clubbing. No edema. Left lower extremity with chronic ulcer wrapped Dermatologic--normal skin turgor, normal color, no rash. Psychiatric--lethargic Results & Data Results & Data ([facility]) Vital Signs (Past 12 Hours) Vital Signs Temp Pulse Pulse Resp BP Pulse Ox 06/13/20 11:25 36.5 C 59 L 18 104/53 L 96 06/13/20 08:07 36.6 C 61 18 121/62 96 06/13/20 08:00 67 06/13/20 04:16 37.0 C 52 L 18 118/63 99 Resident Activity Tracking Resident Involvement: Resident Care Provided Care Provided: Adult Hospital Medicine (1) DM (diabetes mellitus) Diabetes mellitus complication status: with unspecified complications Diabetes mellitus terminal press operator insulin use: with terminal press operator use Diabetes mellitus type: type 2 Qualified Code(s): E11.8 - Type 2 diabetes mellitus with unspecified complications; Z79.4 - terminal press operator (current) use of insulin
[2020-06-13] MEDS: ONDANSETRON INJ 2 MG/ML 2 ML VIAL IV PRN (14:03)
[2020-06-13] MEDS: TRAMADOL HCL 50 MG TABLET PO PRN (15:36)
[2020-06-13] MEDS ORDERED: WARFARIN SOD 7.5 MG TAB PO SCH (16:00)
[2020-06-13] MEDS: cefTRIAXone SODIUM 2,000 MG in DEXTROSE 5% 50 ML IV SCH (17:11)
[2020-06-13 17:42] LABS: Partial Thromboplastin Ratio 2.2
[2020-06-13 17:46] LABS: Partial Thromboplastin Time 62.2 Seconds (21.0-31.0)
--- NOTE | 2020-06-13 17:59 | Billing Data ---
Date of Service June 13, 2020 Coding Level of Care Code 11611 Subseq Hosp Care Lvl 2
[2020-06-13] MEDS: NITROGLYCERIN 0.2 MG/HR PATCH TD SCH (20:34)
--- NOTE | 2020-06-13 22:27 | Electrocardiogram Report ---
Test Reason : Blood Pressure : / mmHG Vent. Rate : 063 BPM Atrial Rate : 000 BPM P-R Int : 000 ms QRS Dur : 162 ms QT Int : 550 ms P-R-T Axes : 000 209 099 degrees QTc Int : 562 ms Poor data quality, interpretation may be adversely affected Atrial fibrillation Right bundle branch block Inferior infarct (cited on or before 26-OCT-2016) Nonspecific T wave abnormality Abnormal ECG When compared with ECG of 12-JUN-2020 00:00, Nonspecific T wave abnormality no longer evident in Inferior leads Confirmed by Jordin Posada ([id number]) on 06/13/2020 10:27:11 PM Referred By: REFERRED SELF Confirmed By:Jordin Posada
[2020-06-14] MEDS: HEPARIN SODIUM/DEXTROSE 25,000 UNITS/500 ML BAG IV SCH ×2 (00:51→11:10)
[2020-06-14 05:51] LABS: Partial Thromboplastin Ratio 2.3; Prothrombin Time 20.3 Seconds (9.0-12.0)
[2020-06-14 06:24] LABS: Partial Thromboplastin Time 64.6 Seconds (21.0-31.0)
--- NOTE | 2020-06-14 06:50 | Hospitalist Progress Note ---
Date of Service June 14, 2020 Assessment & Plan (1) Acute UTI: Jose Townsend is an 80-year-old gentleman with a notable history of BPH with obstruction and LUTS, ischemic cardiomyopathy, combined HFpEF/HFrEF, CAD s/p CABG x 2 (venous graft @ PDA and 1st diagonol) alongside prior PCI with bare metal stent placement (with STEMI in 2010), HTN, HLD, prior DVT, moderate-severe , permanent atrial fibrillation, COPD, DM2, tobacco abuse disorder, and CKD Stage III who presented to [facility] on 06/12 for myalgias, urinary frequency, loose stools, and substernal chest pain, subsequently found to have a UA suggestive of a UTI and an elevated troponin. dementia. UTI. VICTORIANO on CKD3 plan: call pt's . transition to PO abx sooner. update at noon: urine culture sensitivities resulted. nieves sensitive. will consider PO cipro elevated troponin hx chf. ef 40-45%. mildly reduced systolic fxn. grade III pressure ulcer - 05/30/20 wound surface culture: rare amount of coag neg staph. gram stain neg - no abx indicated vitals ok. 107/53, other vitals slightly higher. 36.3CL ok coags elv. stable. no cbc bmp 06/12 uc. citrobacter freundii prelim UTI VICTORIANO CKD3: see plan. zosyn-> rocephin iv yest? venous stasis ulcer L leg: see plan trop: don't order BPH: pain control for leg ulcer? on nitro patch. memantine fengi: 400 heparin in. 2 in NSS. out 350 recorded. fluids heparin and nss 70 Admission and Anticipated Discharge Date Admission Date: June 12, 2020 Subjective pt has pain (10 w/ exacerbation) at his LLE chronic venous ulcer. disatisfied about how his leg was wrapped wants his medical marijuana. This AM at 0600, was frustrated and wanted to remove IV and leave. no f/c n/v , fabian, dizzi, cp, sob, abd, dysuria.. L chronic ulcer. back not hurting. Physical Exam Physical Exam: frustated. conversing fluently. poor insight into medical problems heart lung ok no le edema. abd soft nontender LLE leg ulcer bandaged, c/d/i, did not unwrap Results & Data Results & Data ([facility]) Vital Signs (Past 12 Hours) Vital Signs Temp Pulse Resp BP Pulse Ox 06/13/20 23:29 36.2 C L 60 18 122/66 92
[2020-06-14] MEDS: TRAMADOL HCL 50 MG TABLET PO PRN (08:44)
[2020-06-14] MEDS: SERTRALINE HCL 100 MG TABLET PO SCH (09:03)
[2020-06-14] MEDS: THIAMINE HCL 100 MG TAB PO SCH (09:04)
[2020-06-14] MEDS: CHOLECALCIFEROL 1,000 UNITS 25 MCG TAB PO SCH (09:04)
[2020-06-14] MEDS: METOPROLOL SUCC 50MG EXT REL TAB PO SCH (09:04)
[2020-06-14] MEDS: MEMANTINE HCL 10 MG TAB PO SCH (09:05)
[2020-06-14] MEDS: ISOSORBIDE MONO EXTENDED REL 60 MG TABCR PO SCH (09:05)
[2020-06-14] MEDS: FAMOTIDINE 40 MG TABLET PO SCH (09:05)
[2020-06-14] MEDS: TAMSULOSIN HCL 0.4 MG CAP PO SCH (09:05)
[2020-06-14] MEDS: GENTAMICIN SULFATE 0.1% CR 15 GM TUBE EXT SCH (09:06)
[2020-06-14] MEDS: ASPIRIN 81 MG ECTAB PO SCH (09:06)
[2020-06-14] MEDS: INSULIN GLARGINE SOLOSTAR 100 UNITS/ML 3 ML PEN SC SCH (09:07)
[2020-06-14] MEDS: INSULIN ASPART 100 UNITS/ML 3 ML PEN SC SCH ×3 (09:08→17:50)
[2020-06-14] MEDS: FUROSEMIDE 40 MG TAB PO SCH (10:22)
[2020-06-14] MEDS ORDERED: CEFDINIR 300 MG CAP PO SCH (10:30)
[2020-06-14] MEDS: SODIUM CHLORIDE 0.9% 1000ML 1,000 ML IV SCH (13:40)
[2020-06-14] MEDS ORDERED: WARFARIN SOD 10 MG TAB PO SCH (16:00)
--- NOTE | 2020-06-14 19:15 | Billing Data ---
Date of Service June 14, 2020 Coding Level of Care Code D/C Day Management <30 mins
--- NOTE | 2020-06-14 19:17 | Discharge Summary ---
Date of Service June 14, 2020 Admission HPI Per Admitting Provider The patient is an 80-year-old male with a past medical history including chronic anticoagulation, peripheral arterial disease, left lower extremity pressure ulcer stage III, diabetes mellitus, CKD stage III, anxiety with depression, hyperlipidemia, neurogenic bladder, vitamin D deficiency, permanent atrial fibrillation, ischemic cardiomyopathy, BPH with obstruction, GERD, severe aortic stenosis, COPD, CHF, sleep apnea, peripheral neuropathy and SDAT. His provides most of the H&P, as patient is somewhat lethargic. She reports that he told her that when he developed loose stools today he also developed substernal chest pain, thought he was having a heart attack, and wanted to come to the emergency department Principal Diagnosis UTI dehydration demand myocardial ischemia Discharge Exam gen awake pleasant laying in bed no distress. heent nc at mmm breathing unlabored no accessory muscles good effort skin no rashes no pallor or icterus neuro no focal deficits Discharge Data Allergies Allergy/AdvReac Type Severity Reaction Status Date / Time codeine AdvReac Intermediate EMESIS Verified 06/12/20 00:50 Iodinated Contrast Media AdvReac Mild NAUSEA Verified 06/12/20 00:50 Consultations 06/12/20 02:17 ED Decision to Admit Stat 06/12/20 04:49 Consult Case Management - Discharge Planning Routine Ordered Studies 06/12/20 00:21 CT abd pelvis wo con Urgent Hospital Course (1) UTI (urinary tract infection): Urinary tract infection/BPH with obstruction/neurogenic bladder- -stable for home on PO abx (2) DM (diabetes mellitus): home on home meds (3) Peripheral arterial disease: Status post recent procedure by Dr. Parra. Continue aspirin (4) Pressure ulcer of left leg, stage 3: appears to be healing well - continue local wound care (5) Type 2 DM with CKD stage 3 and hypertension: (6) Pressure ulcer of left leg, unstageable: (7) Hyperlipidemia: Continue atorvastatin 40 mg at bedtime (8) Hypokalemia: (9) Port-A-Cath in place: (10) IRVING (dyspnea on exertion): (11) Permanent atrial fibrillation: PAF/ICM/CAD- On chronic anticoagulation Continue metoprolol succinate 50 mg daily, isosorbide mononitrate 60 mg extended release, nitroglycerin 0.2 mg/h transdermal patch and aspirin (12) BPH loc w urin obs/LUTS: See above Continue tamsulosin 0.8 mg daily (13) GERD (gastroesophageal reflux disease): (14) Severe aortic stenosis: (15) Demand ischemia: severe CAD and dehydration causing poor flow fortunately mild and not of serious significance (16) VICTORIANO (acute kidney injury): dehydration - superimpsoed on CKD3 - improved. stable for home Total Time Total Time Spent Total Time Spent (In Minutes): <30 Discharge Plan Discharge Items Patient Disposition: Home - Self-Care Reason For Visit: CHEST PAIN, UTI, RLE ULCER Discharge Diagnosis: UTI Activity: Per Instructions section Non-emergency contact: Primary Care Provider Call non-emergency contact if: you have any medication questions and you have a fever Follow-up/Referrals: Jhonathan Pennington DO [Primary Care Provider] - Diet: Carb Consistent or DM2 Addtl Attending Provider Instructions: You were seen in the hospital for for urinary symptoms, muscles aches, and chest pain. The labs and imaging we performed showed that you had a urinary infection. We gave you IV antibiotics (Rocephin) while waiting for lab results that would say which oral antibiotics would treat your infection. Afterwards, we switched you to oral antibiotics (cefdinir, a medication in the same family class as Rocephin). Please continue taking cefdinir 300 mg by mouth once a day for 7 days starting tomorrow. You complained of chest pain. We checked your heart enzymes and ekg. The results were most suggestive of some temporary stress on the heart likely related to your kidney infection. The results did not suggest an occluded blood vessel. You have a chronic ulcer on your left leg and this was redressed during your stay here. You are normally on warfarin. Your schedule is , Sat 10 mg per day and 7.5 mg per day on other days. We checked your INR values daily during this hospitalization and it increased from 1.2 up to 2.0 (this morning). We gave you heparin IV during your stay while your INR went back to the desired range. Please go for an INR check on 06/18/20. Please also follow up with your primary care doctor in a week for hospital follow up. The advanced nursing professor will call to schedule these appointments and you will receive a call with the confirmations on Tuesday. If you develop any new or worsening symptoms including fever, chills, sweats, chest pain, chest pressure, difficulty breathing, uncontrolled nausea/vomiting, rash, wheezing, passing out or nearly passing out, bleeding, black/bloody bowel movements, or other new or concerning symptoms please call your primary care physician, or call 911 for re-evaluation in the emergency department if you are very concerned. Pending Studies at Discharge: No Stand-Alone Forms: My [facility] [employer], Smoking Cessation Medications and DC Order Prescriptions: New cefdinir 300 mg capsule 300 mg PO DAILY 7 Days Qty: 7 RF: 0 metoprolol succinate 50 mg tablet extended release 24 hr 50 mg PO DAILY 30 Days Qty: 30 RF: 0 Continued famotidine [Pepcid] 40 mg tablet 40 mg PO DAILY RF: 0 gentamicin 0.1 % ointment 1 applic topical DAILY 14 Days Qty: 30 RF: 2 (DME) AmiatoTouch Ultra Blue Test Strip strip See Dose Instructions .ROUTE .MEDSUPPLY Qty: 100 RF: 0 cholecalciferol (vitamin D3) [Vitamin D3] 5,000 unit tablet 5,000 unit PO DAILY Qty: 30 RF: 0 thiamine HCl (vitamin B1) 100 mg tablet 100 mg PO BID RF: 0 tamsulosin 0.4 mg capsule 0.8 mg PO DAILY Qty: 180 RF: 1 atorvastatin 40 mg tablet 40 mg PO HS Qty: 90 RF: 3 ipratropium-albuterol 0.5 mg-3 mg(2.5 mg base)/3 mL solution for nebulization 3 ml INHALATION Q4H PRN (Reason: Shortness Of Breath) Qty: 180 RF: 5 nitroglycerin 0.2 mg/hr patch 24 hour 1 patch TRANSDERMAL QPM Qty: 30 RF: 1 isosorbide mononitrate 60 mg tablet extended release 24 hr 60 mg PO DAILY Qty: 30 RF: 5 memantine 10 mg tablet 10 mg PO BID Qty: 180 RF: 1 warfarin 5 mg tablet See Rx Instructions .ROUTE .COMPLEX RF: 0 tramadol 50 mg tablet 50 mg PO Q6H PRN (Reason: pain) Qty: 30 RF: 0 sertraline 100 mg tablet 100 mg PO DAILY Qty: 90 RF: 1 Combivent Respimat 20-100 mcg/actuation mist 1 puff INHALATION QID PRN (Reason: shortness of breath or wheezing) Qty: 4 RF: 5 (DME) lancets [OneTouch UltraSoft Lancets] [facility] [place] See Dose Instructions .ROUTE .MEDSUPPLY Qty: 100 RF: 3 nitroglycerin 400 mcg/spray spray,non-aerosol 1 spray Sublingual Q5M PRN (Reason: Chest Pain) Qty: 4.9 RF: 2 (DME) pen needle, diabetic [BD Ultra-Fine Micro Pen Needle] 32 gauge x 1/4" needle See Dose Instructions .ROUTE .MEDSUPPLY Qty: 100 RF: 5 furosemide 40 mg tablet 40 mg PO DAILY RF: 0 metoprolol succinate 50 mg tablet extended release 24 hr 50 mg PO DAILY RF: 0 Tresiba FlexTouch U-100 100 unit/mL (3 mL) insulin pen 15 units SUBCUT DAILY RF: 0 aspirin 81 mg Tablet,Delayed Release (Dr/Ec) 81 mg PO DAILY RF: 0 Discharge Orders: Discharge Order (Routine); Ordered 06/14/20 Ordered By: Mo Ndiaye/Other Patient Handouts: What to Know When TakingWarfarin, Managing Type 2 Diabetes Admission Data Admit Date/Time: 06/12/20 03:27 Attending Provider: Oscar Doll Admit Provider: Parag Guzman Primary Care Provider: Jhonathan Pennington Other Providers: [facility] ; Parag Guzman Other Interventions: Discharge Summary Assessment (RN) Last Done: 06/14/20 19:01 Coding Level of Care Code D/C Day Management <30 mins Diagnoses UTI (urinary tract infection) N39.0 DM (diabetes mellitus) E11.8; Z79.4 Diabetes mellitus type: type 2 Diabetes mellitus retirement insulin use: with rn long term care use Diabetes mellitus complication status: with unspecified complications Peripheral arterial disease I73.9 Pressure ulcer of left leg, stage 3 L89.893 Type 2 DM with CKD stage 3 and hypertension E11.22; I12.9; N18.3 Pressure ulcer of left leg, unstageable L89.890 Hyperlipidemia E78.5 Hypokalemia E87.6 Port-A-Cath in place Z95.828 IRVING (dyspnea on exertion) R06.09 Permanent atrial fibrillation I48.2 BPH loc w urin obs/LUTS N40.1 GERD (gastroesophageal reflux disease) K21.9 Severe aortic stenosis I35.0 Demand ischemia I24.8 VICTORIANO (acute kidney injury) N17.9
[2020-06-18] MEDS ORDERED: INFLUENZA ADMINISTRATION CHARGE ONE (08:00)
[2020-06-18] MEDS ORDERED: INFLUENZA VACCINE HIGH DOSE 65+ 0.5 ML SYR IM ONE (08:00)
== END 2020-06-14 19:47 | disposition home health service (06) ==
LOC: ED 23:55 → INTOOBSV 06-12 03:27 → 2S 06-12 03:27 → SUATTDRO 06-12 03:27 → 2S 06-12 04:19 → 3W 06-13 15:55

== ENCOUNTER 2020-06-26 16:26 | Inpatient (IN) ==
[2020-06-26] MEDS ORDERED: ALBUT/IPRATROP 3MG/0.5MG NEB 3 ML VIAL NEB STA (16:37)
--- NOTE | 2020-06-26 16:46 | Emergency Department Note ---
Impression & Plan Acute respiratory distress, COPD (chronic obstructive pulmonary disease), Pulmonary edema ED Provider Note NAME: JOY BERNAL AGE: 80 SEX: M : 1940 ARRIVES VIA: Ambulance INFORMANT: Patient, the prehospital personnel ED PROVIDER(S): Ramiro Krishnamurthy DO CHIEF COMPLAINT: Difficulty breathing HPI: The patient is an 80-year-old male who has a history of COPD as well as chronic renal failure who presented to the emergency department for an evaluation of difficulty breathing. The patient describes difficulty breathing which began 24 hours ago. He was seen in our facility recently and was admitted for similar complaints. He states that he has been compliant with his outpatient medication regimen. He was complaining of chest pain as well as lower extremity swelling to the prehospital personnel. The patient was found to have decreased mentation prior to arrival. At the bedside he is able to answer questions appropriately. He denies having any current chest pain. He denies having any abdominal pain. He does complain of weight gain and lower extremity swelling. The patient has not been seen by his primary care physician recently. He denies having any fever. He does complain of nonproductive cough. He was recently tested for COVID-19 and was negative. ROS: See above HPI for pertinent positives & negatives. A total of 10 systems reviewed and were otherwise negative. PAST MEDICAL HISTORY: See Below PAST SURGICAL HISTORY: See Below FAMILY HISTORY: See Below SOCIAL HISTORY: See Below HOME MEDICATIONS: See Below ALLERGIES: See Below VITALS: See Below PHYSICAL EXAMINATION: GENERAL: The patient is awake to verbal commands. He is somewhat listless. EYES: The conjunctivae are clear. The pupils are round and reactive. EARS, NOSE, MOUTH AND THROAT: The nose is without any evidence of any deformity. NECK: The neck is nontender and supple. RESPIRATORY: Shallow respirations were noted. Diminished breath sounds are noted throughout with expiratory wheezing in both upper lung cervantes. Significant tachypnea and conversational dyspnea was appreciated. CARDIOVASCULAR: Irregular rhythm was noted to auscultation. No definite murmur was noted. GASTROINTESTINAL: The abdomen is soft. Abdomen is nontender. MUSCULOSKELETAL/EXTREMITIES: There is no evidence of gross deformity full range of motion is noted in the hips and shoulders. SKIN: Venous stasis changes were noted in both lower extremities. There is pedal edema bilaterally which was moderate. NEUROLOGIC: Patient is oriented to person place and situation. MEDICAL DECISION MAKING: The patient is an 80-year-old male who presented to the emergency department for shortness of breath. The patient has a history of respiratory problems chronically. He was admitted to our facility recently for similar complaints. The patient was treated with bronchodilator therapy. He was reevaluated multiple times. I discussed the patient's laboratory and radiographic studies with him and his significant other. Given his findings I also discussed his case with the on-call [facility] hospitalist. They have agreed to evaluate the patient in the emergency department for further management and disposition. Triage Nursing notes reviewed. Prior medical records reviewed Vital Signs: reviewed and remarkable for elevated blood pressure and tachypnea. Differential diagnosis: Reactive airway disease, pneumonia, pneumothorax, COPD, CHF, infections, cardiac ischemia, pulmonary embolism, musculoskeletal, gastrointestinal, as well as other pathologies. ER treatment provided: See below Diagnostics interpreted by me: ECG: EKG was obtained in the emergency department. My interpretation is atrial fibrillation at 69 bpm. A right bundle branch block pattern was favored. There was diffuse ST segment abnormalities noted. This was compared to a tracing from June 132019. No significant changes are noted. Cardiac Monitoring: An order was placed for continuous cardiac monitoring. The monitor shows a rate of 60 bpm with atrial fibrillation rhythm. Laboratory studies: As stated above and show below. Imaging studies: See below Consultation(s): I discussed this case with Dr. Jameson Past Med/Surg History Medical History Anemia Anxiety with depression Cardiac ischemia Cellulitis of left leg without foot CKD (chronic kidney disease) stage 3, GFR 30-59 ml/min Cognitive changes Diabetes mellitus type 2, uncontrolled DM (diabetes mellitus) Elevated lactic acid level Hearing loss Hypertension Hypotension Subtherapeutic international normalized ratio (INR) Ulceration Surgical History H/O hemicolectomy Hx of CABG Family History Mother Hypertension Social History Smoking Status: Never smoker Tobacco Type: Smokeless Tobacco (Dip or Chew) Second Hand Exposure: No; Hx Alcohol Use: Yes Alcohol type: hard liquor Hx Substance Use: Yes Last Used Substance: Hours (ago) Last Used Substance Other:: aware. Substance Use Type Other:: medical marijuana Preferred Language: Maltese Communication Ability: Effective Drugless Doctor Required: No Beliefs That Will Affect Care: None marital status: Current Living Situation: Spouse Feels Safe at Home: Yes Assistive Devices: Walker Allergies Allergies Allergy/AdvReac Type Severity Reaction Status Date / Time codeine AdvReac Intermediate EMESIS Verified 06/26/20 20:36 Iodinated Contrast Media AdvReac Mild NAUSEA Verified 06/26/20 20:36 Home Meds Home Medications Medication Instructions Recorded Confirmed thiamine HCl (vitamin B1) 100 mg 100 mg PO BID tab 02/13/19 06/26/20 tablet Tresiba FlexTouch U-100 15 units SUBCUT DAILY 02/26/20 06/26/20 furosemide 40 mg PO DAILY 02/26/20 06/26/20 famotidine 40 mg tablet 40 mg PO DAILY tab 05/01/20 06/26/20 warfarin 5 mg tablet See Rx Instructions .ROUTE .COMPLEX 05/21/20 06/26/20 aspirin 81 mg PO DAILY 06/12/20 06/26/20 insulin aspart U-100 [Novolog 5 unit SUBCUT .TIDUD 06/26/20 06/26/20 Flexpen U-100 Insulin] Previous Rx's Medication Instructions Recorded lancets #100 ea 02/12/19 pen needle, diabetic 32 gauge x #100 ea 02/12/1909/15" blood sugar diagnostic #100 ea 02/13/19 cholecalciferol (vitamin D3) 125 5,000 unit PO DAILY #30 tab 02/13/19 mcg (5,000 unit) tablet atorvastatin 40 mg tablet 40 mg PO HS #90 tab 06/13/19 tramadol 50 mg tablet 50 mg PO Q6H PRN #30 tab 12/06/19 ipratropium 20 mcg-albuterol 100 1 puff INHALATION QID PRN #4 gm 02/18/20 mcg/actuation mist for inhalation sertraline 100 mg tablet 100 mg PO DAILY #90 tab 02/18/20 memantine 10 mg tablet 10 mg PO BID #180 tab 03/13/20 gentamicin 0.1 % topical ointment 1 applic TOPICAL DAILY 14 Days #30 05/16/20 g metoprolol succinate 50 mg PO DAILY 30 Days #30 tab 06/14/20 Oxygen Home #1 ea 06/20/20 Portable Oxygen #1 ea 06/20/20 ipratropium 0.5 mg-albuterol 3 mg 3 ml INHALATION Q4H PRN #180 ml 06/20/20 (2.5 mg base)/3 mL nebulization soln nitroglycerin 0.2 mg/hr 1 patch TRANSDERMAL QPM #30 ea 06/20/20 transdermal 24 hour patch nitroglycerin 400 mcg/spray 1 spray SUBLINGUAL Q5M PRN #4.9 gm 06/20/20 translingual tamsulosin 0.4 mg capsule 0.8 mg PO DAILY #180 cap 06/20/20 isosorbide mononitrate 60 mg 60 mg PO DAILY #30 tab 06/23/20 tablet,extended release 24 hr Results & Data (ED) Vital Signs Vital Signs - 24 hr 06/26/20 16:30 06/26/20 16:45 06/26/20 16:56 Temperature 36.8 C Temperature Source Oral Pulse Rate 68 68 Pulse Rate [Left Finger] 65 Pulse Rate from SpO2 Sensor Pulse Rhythm Regular Irregular Pulse Strength Normal Respiratory Rate 28 H 28 H 24 Respiratory Effort / Characteristics Labored Spontaneous Short of Breath Respiratory Pattern Tachypnea Blood Pressure 181/80 H Blood Pressure Mean 113 Blood Pressure Position Sitting Pulse Oximetry 96 94 95 Oxygen Delivery Method Nasal Cannula Nasal Cannula Nasal Cannula Oxygen Flow Rate 1 1 1 Sepsis Recent Fever Within 48 Hours No Sepsis New/Unexplained Change in Mental Status No Sepsis Action Taken by Nursing No Action Required 06/26/20 17:03 06/26/20 17:07 06/26/20 17:30 Temperature Temperature Source Pulse Rate 66 Pulse Rate [Left Finger] Pulse Rate from SpO2 Sensor 67 Pulse Rhythm Pulse Strength Respiratory Rate 26 H Respiratory Effort / Characteristics Short of Breath SOB on Exertion Respiratory Pattern Tachypnea Blood Pressure Blood Pressure Mean Blood Pressure Position Pulse Oximetry 97 Oxygen Delivery Method Nasal Cannula Nasal Cannula Oxygen Flow Rate 1 Sepsis Recent Fever Within 48 Hours Sepsis New/Unexplained Change in Mental Status Sepsis Action Taken by Nursing 06/26/20 18:00 06/26/20 18:15 06/26/20 18:24 Temperature Temperature Source Pulse Rate 69 60 55 L Pulse Rate [Left Finger] Pulse Rate from SpO2 Sensor 59 L 60 56 L Pulse Rhythm Pulse Strength Respiratory Rate 14 Respiratory Effort / Characteristics Respiratory Pattern Blood Pressure 131/82 Blood Pressure Mean 99 Blood Pressure Position Pulse Oximetry 96 97 97 Oxygen Delivery Method Oxygen Flow Rate Sepsis Recent Fever Within 48 Hours Sepsis New/Unexplained Change in Mental Status Sepsis Action Taken by Nursing 06/26/20 18:30 06/26/20 19:00 06/26/20 19:30 Temperature Temperature Source Pulse Rate 55 L Pulse Rate [Left Finger] Pulse Rate from SpO2 Sensor 60 54 L 67 Pulse Rhythm Pulse Strength Respiratory Rate 22 Respiratory Effort / Characteristics Respiratory Pattern Blood Pressure 127/69 138/73 Blood Pressure Mean 88 96 Blood Pressure Position Pulse Oximetry 96 96 98 Oxygen Delivery Method Oxygen Flow Rate Sepsis Recent Fever Within 48 Hours Sepsis New/Unexplained Change in Mental Status Sepsis Action Taken by Nursing 06/26/20 19:31 06/26/20 20:00 06/26/20 20:01 Temperature Temperature Source Pulse Rate Pulse Rate [Left Finger] Pulse Rate from SpO2 Sensor 66 59 L 57 L Pulse Rhythm Pulse Strength Respiratory Rate 26 H Respiratory Effort / Characteristics Respiratory Pattern Blood Pressure 188/96 H 146/88 H Blood Pressure Mean 141 93 Blood Pressure Position Pulse Oximetry 99 97 97 Oxygen Delivery Method Oxygen Flow Rate Sepsis Recent Fever Within 48 Hours Sepsis New/Unexplained Change in Mental Status Sepsis Action Taken by Nursing 06/26/20 20:30 06/26/20 20:31 Temperature Temperature Source Pulse Rate Pulse Rate [Left Finger] Pulse Rate from SpO2 Sensor 54 L 55 L Pulse Rhythm Pulse Strength Respiratory Rate 26 H Respiratory Effort / Characteristics Respiratory Pattern Blood Pressure 158/80 H Blood Pressure Mean 114 Blood Pressure Position Pulse Oximetry 96 96 Oxygen Delivery Method Oxygen Flow Rate Sepsis Recent Fever Within 48 Hours Sepsis New/Unexplained Change in Mental Status Sepsis Action Taken by [facility] Medications Current Medication List: was personally reviewed by me Laboratory Data Attestation: I reviewed the patient's lab results. Result diagrams: 06/26/20 15:54 06/26/20 15:54 Lab Results 06/26/20 06/26/20 06/26/20 Range/Units 15:54 15:54 15:54 WBC 10.01 (4.8-10.8) K/uL RBC 4.27 L (4.7-6.1) M/uL Hgb 13.2 L (14.0-18.0) g/dL Hct 41.1 L (42-52) % MCV 96.3 (80-100) fL MCH 30.9 (25-34) pg MCHC 32.1 (32-36) g/dL RDW Std Deviation 61.6 H (36.4-46.3) fL RDW Coeff of Marie 17.5 H (11.5-14.5) % Plt Count 233 (130-400) K/uL MPV 10.4 (7.4-10.4) fL Immature Gran % (Auto) 0.5 % Neut % (Auto) 70.2 % Lymph % (Auto) 21.1 % Kimble % (Auto) 6.4 % Eos % (Auto) 1.7 % Baso % (Auto) 0.1 % Neut # (Auto) 7.03 H (1.4-6.5) K/uL Lymph # (Auto) 2.11 (1.2-3.4) K/uL Kimble # (Auto) 0.64 H (0.11-0.59) K/uL Eos # (Auto) 0.17 (0-0.5) K/uL Baso # (Auto) 0.01 (0-0.2) K/uL Immature Gran # (Auto) 0.05 H (0.00-0.02) K/uL PT 18.2 H (9.0-12.0) Seconds INR 1.8 H (0.9-1.1) APTT 34.6 H (21.0-31.0) Seconds PTT Ratio 1.2 VBG pH (7.36-7.41) VBG pCO2 (38-50) mmHg VBG pO2 mmHg VBG HCO3 mmol/L VBG O2 Saturation % VBG Base Excess mEq/L Barometric Pressure mm/Hg Sodium 137 (136-145) mmol/L Potassium 4.5 (3.5-5.1) mmol/L Chloride 103 (98-107) mmol/L Carbon Dioxide 27 (21-32) mmol/L Anion Gap 7.0 (3-11) BUN 41 H (7-18) mg/dl Creatinine 2.24 H (0.6-1.4) mg/dl Est Cr Clr Drug Dosing 33.7 ml/min Est GFR ( Amer) 30.7 Est GFR (Non-Af Amer) 26.5 BUN/Creatinine Ratio 18.3 (10-20) Glucose 202 H (70-99) mg/dl Calcium 9.5 (8.5-10.1) mg/dl Magnesium 1.9 (1.8-2.4) mg/dl Total Bilirubin 0.6 (0.2-1) mg/dl AST 62 H (15-37) U/L ALT 58 (12-78) U/L Alkaline Phosphatase 106 (45-117) U/L Troponin I 0.022 (0-0.045) ng/ml NT-Pro-B Natriuret Pep 20274 H (0-1800) pg/ml Total Protein 6.6 (6.4-8.2) gm/dl Albumin 3.2 L (3.4-5.0) gm/dl Globulin 3.4 (2.5-4.0) gm/dl Albumin/Globulin Ratio 0.9 (0.9-2) Urine Color Urine Appearance (Clear) Urine pH (4.5-7.5) Ur Specific [place] (1.000-1.030) Urine Protein (Negative) Urine Glucose (UA) (Negative) Urine Ketones (Negative) Urine Blood (Negative) Urine Nitrite (Negative) Urine Bilirubin (Negative) Urine Urobilinogen (Negative) Ur Leukocyte Esterase (Negative) Urine WBC (Auto) (0-5) /hpf Urine RBC (Auto) (0-4) /hpf U Hyaline Cast (Auto) (0-5) /lpf U Epithel Cells (Auto) (0-5) /lpf Urine Bacteria (Auto) (Negative) 06/26/20 06/26/20 Range/Units 17:11 20:10 WBC (4.8-10.8) K/uL RBC (4.7-6.1) M/uL Hgb (14.0-18.0) g/dL Hct (42-52) % MCV (80-100) fL MCH (25-34) pg MCHC (32-36) g/dL RDW Std Deviation (36.4-46.3) fL RDW Coeff of Marie (11.5-14.5) % Plt Count (130-400) K/uL MPV (7.4-10.4) fL Immature Gran % (Auto) % Neut % (Auto) % Lymph % (Auto) % Kimble % (Auto) % Eos % (Auto) % Baso % (Auto) % Neut # (Auto) (1.4-6.5) K/uL Lymph # (Auto) (1.2-3.4) K/uL Kimble # (Auto) (0.11-0.59) K/uL Eos # (Auto) (0-0.5) K/uL Baso # (Auto) (0-0.2) K/uL Immature Gran # (Auto) (0.00-0.02) K/uL PT (9.0-12.0) Seconds INR (0.9-1.1) APTT (21.0-31.0) Seconds PTT Ratio VBG pH 7.34 L (7.36-7.41) VBG pCO2 49 (38-50) mmHg VBG pO2 42 mmHg VBG HCO3 26 mmol/L VBG O2 Saturation 71.6 % VBG Base Excess -0.3 mEq/L Barometric Pressure 727.4 mm/Hg Sodium (136-145) mmol/L Potassium (3.5-5.1) mmol/L Chloride (98-107) mmol/L Carbon Dioxide (21-32) mmol/L Anion Gap (3-11) BUN (7-18) mg/dl Creatinine (0.6-1.4) mg/dl Est Cr Clr Drug Dosing ml/min Est GFR ( Amer) Est GFR (Non-Af Amer) BUN/Creatinine Ratio (10-20) Glucose (70-99) mg/dl Calcium (8.5-10.1) mg/dl Magnesium (1.8-2.4) mg/dl Total Bilirubin (0.2-1) mg/dl AST (15-37) U/L ALT (12-78) U/L Alkaline Phosphatase (45-117) U/L Troponin I (0-0.045) ng/ml NT-Pro-B Natriuret Pep (0-1800) pg/ml Total Protein (6.4-8.2) gm/dl Albumin (3.4-5.0) gm/dl Globulin (2.5-4.0) gm/dl Albumin/Globulin Ratio (0.9-2) Urine Color Yellow Urine Appearance Clear (Clear) Urine pH 5.0 (4.5-7.5) Ur Specific [place] 1.018 (1.000-1.030) Urine Protein Trace H (Negative) Urine Glucose (UA) Negative (Negative) Urine Ketones Negative (Negative) Urine Blood Trace H (Negative) Urine Nitrite Negative (Negative) Urine Bilirubin Negative (Negative) Urine Urobilinogen Negative (Negative) Ur Leukocyte Esterase Trace H (Negative) Urine WBC (Auto) 1-5 (0-5) /hpf Urine RBC (Auto) 0-4 (0-4) /hpf U Hyaline Cast (Auto) 1-5 (0-5) /lpf U Epithel Cells (Auto) 10-20 H (0-5) /lpf Urine Bacteria (Auto) Negative (Negative) Administered Medications Discontinued Medications Albuterol (Albut/Ipratrop 3mg/0.5mg Neb 3 Ml Vial) 3 ml NEB NOW STA Stop: 06/26/20 16:38 Last Admin: 06/26/20 16:56 Dose: 3 ml Documented by: [id number] Imaging Data Radiologist's Impression: Patient: JOY BERNAL EAdmit Date: 06/26/20 MR#: [id number]: [address] Acct ID:[id number]: Date: 1940ty Zip: [place] [address] Age: 80Location: ED Sex: MRoom/Bed: Att Phy:Diagnosis: SOB, WEAKNESS Danna Phy: Jhonathan Pennington, DOService Date: 06/26/20 Fam Phy:Interpreting Phy: Jeramie Jacobs MD Admit Phy: Ordering Phy: Ramiro Krishnamurthy DO cc: ~ XR chest 1V portable HISTORY: Dyspnea COMPARISON: Chest 06/12/2020. FINDINGS: No pneumothorax. Small to moderate right pleural effusion and right basilar densities have progressed. The heart remains enlarged. Right jugular central venous catheter which terminates at the SVC. There are poststernotomy changes. There is mild perihilar interstitial vascular thickening which is slightly progressed. This is consistent with mild pulmonary edema. Also small left pleural effusion. There are low lung volumes. IMPRESSION: Interval progression of the pulmonary edema and bilateral pleural effusions. ACT 112: Negative or not required by law. Electronically signed by: Jeramie Jacobs M.D. 06/26/2020 5:08 PM Dictated: 06/26/201705 Transcribed: 10/15/20 1706 Blood Pressure Blood Pressure Findings: Elevated blood pressure Discharge Plan Visit Data Chief Complaint: Shortness of Breath/Dyspnea Stated Complaint: SOB, WEAKNESS ED Provider: Ramiro Krishnamurthy Discharge Problem: Acute respiratory distress, COPD (chronic obstructive pulmonary disease), Pulmonary edema Patient Disposition: Being Evaluated by Hospitalist Condition: Good Forms Stand Alone Forms: My [facility] Prescriptions Prescriptions: No Action famotidine [Pepcid] 40 mg tablet 40 mg PO DAILY RF: 0 gentamicin 0.1 % ointment 1 applic topical DAILY 14 Days Qty: 30 RF: 2 (DME) OneTouch Ultra Blue Test Strip strip See Dose Instructions .ROUTE .MEDSUPPLY Qty: 100 RF: 0 cholecalciferol (vitamin D3) [Vitamin D3] 5,000 unit tablet 5,000 unit PO DAILY Qty: 30 RF: 0 thiamine HCl (vitamin B1) 100 mg tablet 100 mg PO BID RF: 0 atorvastatin 40 mg tablet 40 mg PO HS Qty: 90 RF: 3 memantine 10 mg tablet 10 mg PO BID Qty: 180 RF: 1 warfarin 5 mg tablet See Rx Instructions .ROUTE .COMPLEX RF: 0 isosorbide mononitrate 60 mg tablet extended release 24 hr 60 mg PO DAILY Qty: 30 RF: 5 tramadol 50 mg tablet 50 mg PO Q6H PRN (Reason: pain) Qty: 30 RF: 0 tamsulosin 0.4 mg capsule 0.8 mg PO DAILY Qty: 180 RF: 1 nitroglycerin 0.2 mg/hr patch 24 hour 1 patch TRANSDERMAL QPM Qty: 30 RF: 5 nitroglycerin 400 mcg/spray spray,non-aerosol 1 spray Sublingual Q5M PRN (Reason: Chest Pain) Qty: 4.9 RF: 2 ipratropium-albuterol 0.5 mg-3 mg(2.5 mg base)/3 mL solution for nebulization 3 ml INHALATION Q4H PRN (Reason: Shortness Of Breath) Qty: 180 RF: 5 (DME) Portable Oxygen Misc See Rx Instructions .ROUTE .MEDSUPPLY Qty: 1 RF: 0 (DME) Oxygen Home Liters Per Minute See Rx Instructions .ROUTE .MEDSUPPLY Qty: 1 RF: 0 sertraline 100 mg tablet 100 mg PO DAILY Qty: 90 RF: 1 Combivent Respimat 20-100 mcg/actuation mist 1 puff INHALATION QID PRN (Reason: shortness of breath or wheezing) Qty: 4 RF: 5 (DME) lancets [OneTouch UltraSoft Lancets] [facility] See Dose Instructions .ROUTE .MEDSUPPLY Qty: 100 RF: 3 (DME) pen needle, diabetic [BD Ultra-Fine Micro Pen Needle] 32 gauge x 1/4" needle See Dose Instructions .ROUTE .MEDSUPPLY Qty: 100 RF: 5 furosemide 40 mg tablet 40 mg PO DAILY RF: 0 Tresiba FlexTouch U-100 100 unit/mL (3 mL) insulin pen 15 units SUBCUT DAILY RF: 0 aspirin 81 mg Tablet,Delayed Release (Dr/Ec) 81 mg PO DAILY RF: 0 metoprolol succinate 50 mg tablet extended release 24 hr 50 mg PO DAILY 30 Days Qty: 30 RF: 0 insulin aspart U-100 [Novolog Flexpen U-100 Insulin] 100 unit/mL (3 mL) Insulin Pen 5 unit SUBCUT .TIDUD RF: 0 Referrals Referrals: Jhonathan Pennington DO [Primary Care Provider] -
[2020-06-26 16:51] LABS: Basophils # (auto) 0.01 K/uL (0-0.2); Basophils % (auto) 0.1 %; Eosinophils # (auto) 0.17 K/uL (0-0.5); Eosinophils % (auto) 1.7 %; Hematocrit (blood only) 41.1 % (42-52); Hemoglobin 13.2 g/dL (14.0-18.0); Immature Granulocytes # (auto) 0.05 K/uL (0.00-0.02); Immature Granulocytes % (auto) 0.5 %; Lymphocytes # (auto) 2.11 K/uL (1.2-3.4); Lymphocytes % (auto) 21.1 %; Mean Corpuscular Hemoglobin 30.9 pg (25-34); Mean Corpuscular Hgb Conc 32.1 g/dL (32-36); Mean Corpuscular Volume 96.3 fL (80-100); Mean Platelet Volume 10.4 fL (7.4-10.4); Monocytes # (auto) 0.64 K/uL (0.11-0.59); Monocytes % (auto) 6.4 %; Neutrophils # (auto) 7.03 K/uL (1.4-6.5); Neutrophils % (auto) 70.2 %; Platelet Count 233 K/uL (130-400); RDW Coefficient of Variation 17.5 % (11.5-14.5); RDW Standard Deviation 61.6 fL (36.4-46.3); Red Blood Count 4.27 M/uL (4.7-6.1); White Blood Count 10.01 K/uL (4.8-10.8)
[2020-06-26 17:00] LABS: INR 1.8 (0.9-1.1); Partial Thromboplastin Ratio 1.2; Partial Thromboplastin Time 34.6 Seconds (21.0-31.0); Prothrombin Time 18.2 Seconds (9.0-12.0)
[2020-06-26 17:05] LABS: Albumin Level 3.2 gm/dl (3.4-5.0); BUN Creatinine Ratio 18.3 (10-20); Calcium 9.5 mg/dl (8.5-10.1); Creatinine Clr Calc Pharmacy 33.7 ml/min; Est GFR (African American) 30.7; Est GFR (Non-African American) 26.5; Magnesium 1.9 mg/dl (1.8-2.4); Potassium 4.5 mmol/L (3.5-5.1)
--- NOTE | 2020-06-26 17:09 | XRay Report ---
XR chest 1V portable HISTORY: Dyspnea COMPARISON: Chest 06/12/2020. FINDINGS: No pneumothorax. Small to moderate right pleural effusion and right basilar densities have progressed. The heart remains enlarged. Right jugular central venous catheter which terminates at the SVC. There are poststernotomy changes. There is mild perihilar interstitial vascular thickening whic h is slightly progressed. This is consistent with mild pulmonary edema. Also small left pleural effus ion. There are low lung volumes. IMPRESSION: Interval progression of the pulmonary edema and bilateral pleural effusions. ACT 112: Negative or not required by law. Electronically signed by: Jeramie Jacobs M.D. 06/26/2020 5:08 PM
[2020-06-26 17:11] LABS: Albumin Globulin Ratio 0.9 (0.9-2); Bilirubin,Total 0.6 mg/dl (0.2-1); Globulin 3.4 gm/dl (2.5-4.0); Total Protein 6.6 gm/dl (6.4-8.2); Troponin I 0.022 ng/ml (0-0.045)
[2020-06-26 17:25] LABS: Base Excess VBG -0.3 mEq/L; Oxygen Saturation VBG 71.6 %; pH VBG 7.34 (7.36-7.41)
[2020-06-26 20:32] LABS: Appearance Urine Clear (Clear); Bacteria Urine Automated Negative (Negative); Bilirubin Urine Negative (Negative); Blood Urine Trace (Negative); Color Urine Yellow; Glucose Urine UA Negative (Negative); Ketones Urine Negative (Negative); Leukocyte Esterase Urine Trace (Negative); Nitrite Urine Negative (Negative); Protein Urine Trace (Negative); RBC Urine Automated 0-4 /hpf (0-4); Specific Gravity Urine 1.018 (1.000-1.030); Urobilinogen Urine Negative (Negative)
[2020-06-26] MEDS ORDERED: GLUCAGON FOR INJ 1 MG VIAL SQ PRN (23:33)
[2020-06-26] MEDS ORDERED: ALUMINUM/MAGNESIUM SUSP 30 ML UDC PO PRN (23:33)
[2020-06-26] MEDS ORDERED: IPRATROPIUM BROMIDE/ALBUTEROL respimat INH INH PRN (23:33)
[2020-06-26] MEDS ORDERED: DEXTROSE 50% 50 ML SYRINGE IV PRN (23:33)
[2020-06-26] MEDS ORDERED: ACETAMINOPHEN 325 MG TAB PO PRN (23:33)
[2020-06-26] MEDS ORDERED: CARBOHYDRATES FOR HYPOGLYCEMIA PO PRN (23:33)
[2020-06-26] MEDS ORDERED: ALBUT/IPRATROP 3MG/0.5MG NEB 3 ML VIAL NEB PRN (23:33)
[2020-06-26] MEDS ORDERED: PIPERACILL/TAZOBAC CONSULT ACTIVE PRN (23:33)
[2020-06-26] MEDS ORDERED: traMADol HCL 50 MG TABLET PO PRN (23:33)
[2020-06-26] MEDS ORDERED: DC ALL PREVIOUSLY ORDERED DIABETES MEDS ONE (23:33)
[2020-06-26] MEDS ORDERED: GLUCOSE 10 TABS/TUBE PO PRN (23:33)
[2020-06-26] MEDS ORDERED: GLUCOSE 40% GEL 15 GM TUBE PO PRN (23:33)
[2020-06-26] MEDS ORDERED: ALBUT/IPRATROP 3MG/0.5MG NEB 3 ML VIAL INH PRN (23:33)
[2020-06-26] MEDS ORDERED: methylPREDNISolone 125 MG/2 ML VIAL IV STA (23:33)
[2020-06-26] MEDS ORDERED: POLYETHYLENE (MIRALAX) 17 GM PACK PO PRN (23:33)
[2020-06-26] MEDS ORDERED: FUROSEMIDE 40 MG/4 ML VIAL IV STA (23:33)
[2020-06-26] MEDS ORDERED: ONDANSETRON INJ 2 MG/ML 2 ML VIAL IV PRN (23:33)
[2020-06-26] MEDS ORDERED: FUROSEMIDE 40 MG in SYRINGE 0 ML IV STA (23:47)
[2020-06-26] MEDS ORDERED: methylPREDNISolone 125 MG in SYRINGE 0 ML IV STA (23:48)
[2020-06-27] MEDS ORDERED: PIPERACILLIN/TAZOBACTAM 4.5 GM in DEXTROSE 5% 100 ML IV SCH
[2020-06-27] MEDS ORDERED: NITROGLYCERIN SL 0.4 MG/TAB TAB SL PRN (00:03)
[2020-06-27] MEDS: ATORVASTATIN 40 MG TAB PO SCH ×2 (00:38→21:53)
[2020-06-27] MEDS: THIAMINE HCL 100 MG TAB PO SCH ×3 (00:38→23:08)
[2020-06-27] MEDS: MEMANTINE HCL 10 MG TAB PO SCH ×3 (00:39→21:53)
[2020-06-27] MEDS: WARFARIN SOD 7.5 MG TAB PO SCH (00:40)
[2020-06-27] MEDS: NITROGLYCERIN 0.2 MG/HR PATCH TD SCH ×2 (00:40→22:01)
--- NOTE | 2020-06-27 00:48 | History & Physical Report ---
Date of Service June 27, 2020 Assessment & Plan (1) Acute respiratory distress: Respiratory Distress Patient in clear respiratory distress, tachypneic, increased work of breathing, difficulty mentating CXR showing clear pulmonary edema, b/l pleural effusions and possible basilar consolidation. Due to multiple risk factors and severity of patients illness will give lasix 40 mg IV now, start zosyn and give IV steroids Will get CT chest and procalcitonin to further evaluate chest and if less suspicion for infection can discontinue abx tomorrow morning Patient improved with lasix dose, after initially being concerned about intubation and placement in ICU will admit to PCU for now and monitor closely DMII Insulin sliding scale, adjust as needed CAD Continuing atorvastatin forty mg asa 81, metoprolol, nitro prn COPD Breathing treatments prn Continuing home inhalers Obstructive uropathy and neurogenic bladder Tellez catheter placed at patient's request Recent UTI Patient with only trace leuk esterase and trace blood Given history of straight cathing at home likely does not represent new infection but getting broad spectrum antibiotic now currently regardless DVT PPx: Warfarin F/E/N: NPO until mental status improves Dispo: PCU for diuresis CT chest and further evaluation FUll Code (2) Pulmonary edema: (3) Age-related physical debility: (4) Chronic respiratory failure: (5) VICTORIANO (acute kidney injury): (6) Demand ischemia: (7) History of urinary self-catheterization: (8) Long-term (current) use of anticoagulants, INR goal 2.0-3.0: (9) Peripheral arterial disease: (10) Type 2 DM with CKD stage 3 and hypertension: (11) Pressure ulcer of left leg, unstageable: (12) Chews tobacco: Admission and Anticipated Discharge Date Admission Date: June 26, 2020 History of Present Illness Chief Complaint: Shortness of Breath Primary Care Provider: Jhonathan campbell, Jose Credentialing Coordinator is an 80 year old man with a past medical history significant for CHF (Ischemic cardiomyopathy Last LVEF of 40-45%), Aortic stenosis, COPD, A fib on anticoagulation, peripheral arterial disease, left lower extremity pressure ulcer, DMII, CKD III, Anxiety, Depression, Neurogenic bladder,BPH, GERD, sleep apnea, peripheral neuropathy and dementia who is here for shortness of breath. Patient was just discharged from [facility] for post obstructive UTI. SInce that time patient has had mildly progressive shortness of breath. He actually qualified for home O2 and has been using 2 L O2 for last several days but over last 24 has begun to sharply decline in his respiratory status. only thing that seems to make him feel better at home is to blow a fan in his face. At time of my interview patient is quite agitated and upset and won't answer questions most of history obtained from . Declines chest pain, abdominal pain, fevers, chills, sweats, nausea, vomiting, diarrhea, has been incontinent of urine and requires straight cath at home. He has not been eating much food but what he has has been salty food including a large amount of chili recently. He tells me he would like to be DNR/DNI but tells my attending that he was just frustrated and would actually like to be full code. Allergies Allergy/AdvReac Type Severity Reaction Status Date / Time codeine AdvReac Intermediate EMESIS Verified 06/26/20 20:36 Iodinated Contrast Media AdvReac Mild NAUSEA Verified 06/26/20 20:36 Home Medications Home Medications Medication Instructions Recorded Confirmed Type lancets #100 ea 02/12/19 06/26/20 Rx pen needle, diabetic 32 gauge x #100 ea 02/12/19 06/26/20 Rx 1/4" blood sugar diagnostic #100 ea 02/13/19 06/26/20 Rx cholecalciferol (vitamin D3) 125 5,000 unit PO DAILY #30 tab 02/13/19 06/26/20 Rx mcg (5,000 unit) tablet thiamine HCl (vitamin B1) 100 mg 100 mg PO BID tab 02/13/19 06/26/20 History tablet atorvastatin 40 mg tablet 40 mg PO HS #90 tab 06/13/19 06/26/20 Rx tramadol 50 mg tablet 50 mg PO Q6H PRN #30 tab 12/06/19 06/26/20 Rx ipratropium 20 mcg-albuterol 100 1 puff INHALATION QID PRN #4 gm 02/18/20 06/26/20 Rx mcg/actuation mist for inhalation sertraline 100 mg tablet 100 mg PO DAILY #90 tab 02/18/20 06/26/20 Rx Tresiba FlexTouch U-100 15 units SUBCUT DAILY 02/26/20 06/26/20 History furosemide 40 mg PO DAILY 02/26/20 06/26/20 History memantine 10 mg tablet 10 mg PO BID #180 tab 03/13/20 06/26/20 Rx famotidine 40 mg tablet 40 mg PO DAILY tab 05/01/20 06/26/20 History gentamicin 0.1 % topical ointment 1 applic TOPICAL DAILY 14 Days #30 05/16/20 06/26/20 Rx g warfarin 5 mg tablet See Rx Instructions .ROUTE .COMPLEX 05/21/20 06/26/20 History aspirin 81 mg PO DAILY 06/12/20 06/26/20 History metoprolol succinate 50 mg PO DAILY 30 Days #30 tab 06/14/20 06/26/20 Rx Oxygen Home #1 ea 06/20/20 06/26/20 Rx Portable Oxygen #1 ea 06/20/20 06/26/20 Rx ipratropium 0.5 mg-albuterol 3 mg 3 ml INHALATION Q4H PRN #180 ml 06/20/20 06/26/20 Rx (2.5 mg base)/3 mL nebulization soln nitroglycerin 0.2 mg/hr 1 patch TRANSDERMAL QPM #30 ea 06/20/20 06/26/20 Rx transdermal 24 hour patch nitroglycerin 400 mcg/spray 1 spray SUBLINGUAL Q5M PRN #4.9 gm 06/20/20 06/26/20 Rx translingual tamsulosin 0.4 mg capsule 0.8 mg PO DAILY #180 cap 06/20/20 06/26/20 Rx isosorbide mononitrate 60 mg 60 mg PO DAILY #30 tab 06/23/20 06/26/20 Rx tablet,extended release 24 hr insulin aspart U-100 [Novolog 5 unit SUBCUT .TIDUD 06/26/20 06/26/20 History Flexpen U-100 Insulin] Past Med/Surg History Medical History Anemia Anxiety with depression Cardiac ischemia Cellulitis of left leg without foot CKD (chronic kidney disease) stage 3, GFR 30-59 ml/min Cognitive changes Diabetes mellitus type 2, uncontrolled DM (diabetes mellitus) Elevated lactic acid level Hearing loss Hypertension Hypotension Subtherapeutic international normalized ratio (INR) Ulceration Surgical History H/O hemicolectomy Hx of CABG Family History Mother Hypertension Social History Smoking Status: Never smoker Tobacco Type: Smokeless Tobacco (Dip or Chew) Second Hand Exposure: No; Hx Alcohol Use: Yes Alcohol type: hard liquor Hx Substance Use: No Preferred Language: Japanese Communication Ability: Effective Shoe Clerk Required: No Beliefs That Will Affect Care: None marital status: Current Living Situation: Spouse Other Information That Helps Us Care for You: No Feels Safe at Home: Yes Safety Concerns: Feels Safe At This Time Assistive Devices: Oxygen - Continuous and Walker Review of Systems Review of Systems: All systems reviewed & are unremarkable except as noted in HPI & below and Unobtainable due to cognitive status Physical Exam 2 Constitutional: WD/WN, vitals as above Eyes: PERRL, conjunctivae normal, anicteric sclerae ENMT: external ear and nose normal, oropharynx normal Respiratory: + respiratory distress, + labored breathing and + uses accessory muscles Cardiovascular: Rate/Rhythm: regular rate; + abnormal rhythm Heart Sounds: + murmur; no click and no gallop Extremities: + edema (bilateral 3+ edema) Gastrointestinal (Abdomen): normal bowel sounds, soft, nontender, no hepatosplenomegaly Skin: no rashes, warm and dry Results & Data Results & Data ([facility]) Vital Signs (Past 12 Hours) Vital Signs Temp Pulse Pulse Resp BP BP Pulse Ox 06/26/20 23:09 36.5 C 59 L 25 H 152/89 H 97 06/26/20 22:30 169/89 H 97 06/26/20 22:00 158/104 H 98 06/26/20 21:30 25 H 153/98 H 98 06/26/20 21:00 166/104 H 98 06/26/20 20:32 97 06/26/20 20:31 26 H 158/80 H 96 06/26/20 20:30 96 06/26/20 20:01 26 H 146/88 H 97 06/26/20 20:00 97 06/26/20 19:31 188/96 H 99 06/26/20 19:30 98 06/26/20 19:00 138/73 96 06/26/20 18:30 55 L 22 127/69 96 06/26/20 18:24 55 L 131/82 97 06/26/20 18:15 60 97 06/26/20 18:00 69 14 96 06/26/20 17:30 66 26 H 97 06/26/20 16:56 65 24 95 06/26/20 16:45 68 28 H 94 06/26/20 16:30 36.8 C 68 28 H 181/80 H 96 Code Status & VTE Plan VTE Prophylaxis Plan VTE Prophylaxis will be ordered: Yes Supervising Physician Co-Signing Physician Notes Attending addendum: I have physically seen this patient, have supervised the medical residents activities, and agree with the H&P unless as otherwise noted. Assessment and Plan: Acute respiratory failure with hypoxia/bilateral pneumonia/pulmonary edema- CHF exacerbation/CAD/hypertension- The patient will be admitted to telemetry for serial cardiac enzymes, serial EKG's, cardiac rhythm monitoring and a 2-D echocardiogram with Dopplers. Given Lasix 40 mg IV in the ED, will continue 40 mg IV every morning. Continue aspirin 81 mg daily, metoprolol succinate 50 mg p.o. daily and nitroglycerin 0.2 mg/h transdermal patch. Follow serial chest x-rays, BMP and magnesium levels. Bilateral pneumonia- Superimposed upon CHF. Zosyn 4.5 g IV every 8 hours. Solu-Medrol 25 mg IV now then 40 mg IV every 8 hours. Duonebs every 4 hours while awake and every 2 hours when necessary. Diabetes mellitus- Placed on Accu-Cheks before meals and at bedtime with NovoLog coverage per scale. Expect and increase due to IV steroids Remaining orders and notations as noted Resident Activity Tracking Resident Involvement: Resident Care Provided Care Provided: Adult Hospital Medicine (1) Pulmonary edema Chronicity: acute Qualified Code(s): J81.0 - Acute pulmonary edema
[2020-06-27] MEDS: INSULIN ASPART 100 UNITS/ML 3 ML PEN SC SCH ×5 (00:49→21:56)
[2020-06-27] MEDS: PIPERACILLIN/TAZOBACTAM 4.5 GM in DEXTROSE 5% 100 ML IV SCH ×2 (06:21→13:13)
[2020-06-27 06:28] LABS: Estimated Average Glucose 163 mg/dl; Hemoglobin A1C 7.3 % (4.5-5.6)
[2020-06-27] MEDS: FUROSEMIDE 40 MG TAB PO SCH (08:32)
[2020-06-27] MEDS: FAMOTIDINE 40 MG TABLET PO SCH (08:32)
[2020-06-27] MEDS: SERTRALINE HCL 100 MG TABLET PO SCH (08:33)
[2020-06-27] MEDS: ISOSORBIDE MONO EXTENDED REL 60 MG TABCR PO SCH (08:33)
[2020-06-27] MEDS: TAMSULOSIN HCL 0.4 MG CAP PO SCH (08:33)
[2020-06-27] MEDS: CHOLECALCIFEROL 1,000 UNITS 25 MCG TAB PO SCH (08:33)
[2020-06-27] MEDS: ASPIRIN 81 MG ECTAB PO SCH (08:34)
[2020-06-27] MEDS: METOPROLOL SUCC 50MG EXT REL TAB PO SCH (08:34)
[2020-06-27] MEDS: GENTAMICIN SULFATE 0.1% CR 15 GM TUBE EXT SCH (08:34)
--- NOTE | 2020-06-27 09:25 | Hospitalist Progress Note ---
Date of Service June 27, 2020 Assessment & Plan (1) Acute respiratory distress: Jose Townsend is an 80yo male with COPD, CAD, aortic stenosis, atrial fibrillation, DM2, CKD stage III, neurogenic bladder, GERD, and dementia who presented to the ED with SOB, tachypnea, and altered mental status. Respiratory distress 2/2 pleural effusion -CT shows large right pleural effusion without density or haziness suggesting a concurrent pneumonia, low suspicion for infectious process; discontinuing IV zosyn -converted IV methylprednisolone to prednisone 50mg PO qd -converted IV lasix to PO 40mg daily -tachypnea has improved, patient is stable and resting comfortably -monitor for clinical improvement; would ideally like to avoid tapping the effusion -only requiring 2L NC at the moment -wean oxygen as tolerated DMII -ISS -adding 15u lantus per pharmacy recommendations, and will hold if BSG under 110 CAD -continue atorvastatin 40mg qd -continue ASA 81mg qd -continue metoprolol 50mg qd COPD -continue neb treatments prn -continue home inhalers Obstructive uropathy, neurogenic bladder -gonzalez catheter placed at patient's request Recent UTI -trace leuk esterase and trace blood -given history of straight cathing at home likely does not represent new infection FENGI: NPO until mental status improves DVT prophylaxis: warfarin Code status: full code Dispo: PCU tele (2) Pulmonary edema: (3) Age-related physical debility: (4) Chronic respiratory failure: (5) VICTORIANO (acute kidney injury): (6) Demand ischemia: (7) History of urinary self-catheterization: (8) Long-term (current) use of anticoagulants, INR goal 2.0-3.0: (9) Peripheral arterial disease: (10) Type 2 DM with CKD stage 3 and hypertension: (11) Pressure ulcer of left leg, unstageable: (12) Chews tobacco: Admission and Anticipated Discharge Date Admission Date: June 26, 2020 Supervising Physician Co-Signing Physician Notes I personally examined the patient and verified all lema points of history and exam, discussed case, and agree with decision making with Dr Matamoros not much HPI or ROS obtainable - sleeping on R side and communicates in short, mostly one word answers as was the same as when i last took care of him. denies pain. denies SOB. vitals noted nad heent nc at mmm NC near but not in nose, and SPO2 still 95-96%. lungs quiet R sided, fairly clear L. no accessory muscles good effort. skin no rashes no pallor or icterus. L leg pressure ulcer dressed but appears to be healing under dressing, no tracking erythema acute hypoxia - appears with further review (time, serial exams, procalcitonin, and CT chest) to be CHF/acute pulmonary edema and pleural effusions, not pneumonia. follow for ongoing improvement with diuresis - might need R effusion therapeutic thoracentesis, but hold off for now. stage 3 pressure ulcer L posterior leg ongoing local wound care - seems to be healing. Subjective Patient was seen at the bedside this morning. He was very drowsy and unable to provide much information but indicated he is not in pain at the moment. He was sleeping and appeared to be breathing comfortably. Unable to obtain meaningful information beyond this. Review of Systems Review of Systems: Unobtainable due to cognitive status Physical Exam Constitutional: no acute distress and not ill appearing Respiratory: normal respiratory effort; no labored breathing and no cough mild crackles in the left lung cervantes, breath sounds on the right very distant, unable to appreciate any crackles/rales/rhonchi on the right Cardiovascular: Rate/Rhythm: regular rate and regular rhythm Heart Sounds: no murmur Gastrointestinal (Abdomen): normal bowel sounds, soft, nontender, no hep atosplenomegaly Results & Data Results & Data ([facility]) Vital Signs (Past 12 Hours) Vital Signs Temp Pulse Resp BP BP Pulse Ox 06/27/20 08:30 36.8 C 96 H 18 183/84 H 97 06/27/20 04:00 36.7 C 89 20 174/83 H 99 06/26/20 23:09 36.5 C 59 L 25 H 152/89 H 97 06/26/20 22:30 169/89 H 97 06/26/20 22:00 158/104 H 98 06/26/20 21:30 25 H 153/98 H 98 Resident Activity Tracking Resident Involvement: Resident Care Provided Care Provided: Adult Hospital Medicine (1) Pulmonary edema Chronicity: acute Qualified Code(s): J81.0 - Acute pulmonary edema
--- NOTE | 2020-06-27 10:12 | Electrocardiogram Report ---
Test Reason : Blood Pressure : / mmHG Vent. 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
--- NOTE | 2020-06-27 12:09 | CT Scan Report ---
CT OF THE CHEST WITHOUT IV CONTRAST CLINICAL HISTORY: Shortness of breath. Concern for pneumonia. COMPARISON STUDY: Chest CT February 10, 2019. Chest radiograph June 26, 2019. CT DOSE: 1572.69 mGy.cm TECHNIQUE: Axial images of the chest were obtained without IV contrast. Images were reviewed in the axial, sagittal, and coronal planes. IV contrast was not administered for this examination. Automat ed exposure control was utilized for the study. A dose lowering technique was utilized adhering to t he principles of ALARA. FINDINGS: A right internal jugular Wznyfe-l-Oesp is in place. Moderate cardiomegaly is noted with ex tensive coronary artery calcification. There is no pericardial effusion. A moderate right pleural eff usion is noted. This may be partially loculated. There is a small left pleural effusion. There is no pneumothorax. Interlobular septal thickening is noted. There are groundglass opacities within the hadley gs. No consolidation is noted. Lungs are suboptimally assessed given respiratory motion. Central airw ays are patent. Partially calcified mediastinal lymph nodes are noted. These are benign. No suspiciou s lesions within the bony thorax are noted. Visualized portions of the upper abdomen demonstrate calc ified granulomatous within the spleen. There are gallstones within the gallbladder. There is a suspec brian 2.1 cm polypoid lesion arising from the wall of the hepatic flexure of the colon shown on image 3 57 of 381. IMPRESSION: 1. Moderate right pleural effusion, partially loculated. Small left pleural effusion. 2. Interstitial pulmonary edema. Groundglass opacities favor alveolar edema or atelectasis. No consol idation to suggest pneumonia. 3. Suspected 2.1 cm polypoid lesion arising from the wall of the hepatic flexure of the colon. GI con sultation for consideration for nonemergent colonoscopy. ACT 112: Negative or not required by law. Electronically signed by: Atul rBenner M.D. 06/27/2020 12:08 PM
--- NOTE | 2020-06-27 16:52 | Billing Data ---
Date of Service June 27, 2020 Coding Level of Care Code 74194 Subseq Hosp Care Lvl 3
[2020-06-27] MEDS ORDERED: FUROSEMIDE 40 MG in SYRINGE 0 ML IV ONE (17:00)
[2020-06-27] MEDS: INSULIN GLARGINE SOLOSTAR 100 UNITS/ML 3 ML PEN SQ SCH (17:10)
[2020-06-27] MEDS: WARFARIN SOD 10 MG TAB PO SCH (17:11)
[2020-06-27] MEDS: predniSONE 50 MG TAB PO SCH (17:11)
[2020-06-27] MEDS ORDERED: predniSONE 50 MG TAB PO SCH (21:30)
[2020-06-28 04:58] LABS: Hematocrit (blood only) 37.4 % (42-52); Immature Granulocytes # (auto) 0.01 K/uL (0.00-0.02); Immature Granulocytes % (auto) 0.1 %; Lymphocytes # (auto) 0.55 K/uL (1.2-3.4); Lymphocytes % (auto) 6.5 %; Mean Corpuscular Hemoglobin 30.4 pg (25-34); Mean Corpuscular Hgb Conc 32.1 g/dL (32-36); Mean Corpuscular Volume 94.7 fL (80-100); Mean Platelet Volume 10.4 fL (7.4-10.4); Monocytes # (auto) 0.29 K/uL (0.11-0.59); Monocytes % (auto) 3.4 %; Neutrophils # (auto) 7.61 K/uL (1.4-6.5); Platelet Count 228 K/uL (130-400); RDW Coefficient of Variation 17.2 % (11.5-14.5); RDW Standard Deviation 59.1 fL (36.4-46.3); Red Blood Count 3.95 M/uL (4.7-6.1); White Blood Count 8.46 K/uL (4.8-10.8)
[2020-06-28 05:30] LABS: Calcium 8.6 mg/dl (8.5-10.1); Creatinine Clr Calc Pharmacy 35.9 ml/min; Est GFR (African American) 33.2; Est GFR (Non-African American) 28.7; Potassium 4.4 mmol/L (3.5-5.1)
[2020-06-28] MEDS: INSULIN ASPART 100 UNITS/ML 3 ML PEN SC SCH ×4 (08:07→20:22)
[2020-06-28] MEDS: ASPIRIN 81 MG ECTAB PO SCH (08:09)
[2020-06-28] MEDS: CHOLECALCIFEROL 1,000 UNITS 25 MCG TAB PO SCH (08:09)
[2020-06-28] MEDS: ISOSORBIDE MONO EXTENDED REL 60 MG TABCR PO SCH (08:09)
[2020-06-28] MEDS: METOPROLOL SUCC 50MG EXT REL TAB PO SCH (08:09)
[2020-06-28] MEDS: FUROSEMIDE 40 MG TAB PO SCH (08:09)
[2020-06-28] MEDS: MEMANTINE HCL 10 MG TAB PO SCH ×2 (08:09→20:16)
[2020-06-28] MEDS: SERTRALINE HCL 100 MG TABLET PO SCH (08:09)
[2020-06-28] MEDS: FAMOTIDINE 40 MG TABLET PO SCH (08:09)
[2020-06-28] MEDS: THIAMINE HCL 100 MG TAB PO SCH ×2 (08:09→20:16)
[2020-06-28] MEDS: TAMSULOSIN HCL 0.4 MG CAP PO SCH (08:09)
[2020-06-28] MEDS: GENTAMICIN SULFATE 0.1% CR 15 GM TUBE EXT SCH (08:10)
[2020-06-28] MEDS ORDERED: FUROSEMIDE 40 MG TAB PO ONE (15:00)
[2020-06-28] MEDS: INSULIN GLARGINE SOLOSTAR 100 UNITS/ML 3 ML PEN SQ SCH (16:16)
[2020-06-28] MEDS: WARFARIN SOD 7.5 MG TAB PO SCH (16:16)
[2020-06-28] MEDS: predniSONE 50 MG TAB PO SCH (16:17)
--- NOTE | 2020-06-28 17:04 | Billing Data ---
Date of Service June 28, 2020 Coding Level of Care Code 70040 Subseq Hosp Care Lvl 2
--- NOTE | 2020-06-28 18:45 | Hospitalist Progress Note ---
Date of Service June 28, 2020 Assessment & Plan (1) Acute respiratory distress: Jose Townsend is an 80yo male with COPD, CAD, aortic stenosis, atrial fibrillation, DM2, CKD stage III, neurogenic bladder, GERD, and dementia who presented to the ED with SOB, tachypnea, and altered mental status. Respiratory distress 2/2 pleural effusion -CT shows large right pleural effusion without density or haziness suggesting a concurrent pneumonia, low suspicion for infectious process; discontinued IV zosyn -converted IV methylprednisolone to prednisone 50mg PO qd -converted IV lasix to PO 40mg daily, attempting to diurese the fluid / effusion to avoid tapping -tachypnea has improved, patient is stable and resting comfortably -monitor for clinical improvement -on 2L NC at the moment -wean oxygen as tolerated DMII -ISS -adding 15u lantus per pharmacy recommendations, and will hold if BSG under 110 CAD -continue atorvastatin 40mg qd -continue ASA 81mg qd -continue metoprolol 50mg qd COPD -continue neb treatments prn -continue home inhalers Obstructive uropathy, neurogenic bladder -gonzalez catheter placed at patient's request Recent UTI -trace leuk esterase and trace blood -given history of straight cathing at home likely does not represent new infection FENGI: diabetic diet DVT prophylaxis: warfarin Code status: full code Dispo: PCU tele (2) Pulmonary edema: (3) Age-related physical debility: (4) Chronic respiratory failure: (5) VICTORIANO (acute kidney injury): (6) Demand ischemia: (7) History of urinary self-catheterization: (8) Long-term (current) use of anticoagulants, INR goal 2.0-3.0: (9) Peripheral arterial disease: (10) Type 2 DM with CKD stage 3 and hypertension: (11) Pressure ulcer of left leg, unstageable: (12) Chews tobacco: Admission and Anticipated Discharge Date Admission Date: June 26, 2020 Supervising Physician Co-Signing Physician Notes I personally examined the patient and verified all lema points of history and exam, discussed case, and agree with decision making with Dr Matamoros not much HPI or ROS obtainable - notes that he wants to go home. dtr present - updated on dx and plans and she noted she would update pt's . she notes that after last hospital stay he was put on O2 all the time at 1L vitals noted nad heent nc at mmm breathing unlabored no accessory muscles good effort. skin no rashes no pallor or icterus. L leg pressure ulcer area tender acute hypoxia - appears with further review (time, serial exams, procalcitonin, and CT chest) to be CHF/acute pulmonary edema and pleural effusions, not pneumonia. may need thoracentesis (joelle on R side) but trying to diurese first and then tap if refractory dyspnea or hypoxia. so far showing improvement continue diuresis. stage 3 pressure ulcer L posterior leg ongoing local wound care - seems to be healing. Subjective Patient was seen at the bedside this morning. He was very drowsy and unable to provide much information but indicated he is not in pain at the moment. He was sleeping and appeared to be breathing comfortably. Unable to obtain meaningful information beyond this. Review of Systems Review of Systems: Unobtainable due to cognitive status Physical Exam Constitutional: no acute distress and not ill appearing Respiratory: normal respiratory effort; no labored breathing and no cough Cardiovascular: Rate/Rhythm: regular rate and regular rhythm Heart Sounds: no murmur Gastrointestinal (Abdomen): normal bowel sounds, soft, nontender, no hepatosplenomegaly Results & Data Results & Data ([facility]) Vital Signs (Past 12 Hours) Vital Signs Temp Pulse Resp BP Pulse Ox 06/28/20 15:46 61 06/28/20 15:00 58 L 19 104/51 L 98 06/28/20 11:00 58 L 20 102/51 L 95 06/28/20 08:16 36.9 C 06/28/20 08:00 69 06/28/20 07:00 60 15 110/54 L 96 Resident Activity Tracking Resident Involvement: Resident Care Provided Care Provided: Adult Hospital Medicine (1) Pulmonary edema Chronicity: acute Qualified Code(s): J81.0 - Acute pulmonary edema
--- NOTE | 2020-06-28 19:33 | Billing Data ---
Date of Service June 28, 2020 Coding Level of Care Code 86037 Initial Inpt Care Lvl 3
[2020-06-28] MEDS: ATORVASTATIN 40 MG TAB PO SCH (20:16)
[2020-06-28] MEDS: NITROGLYCERIN 0.2 MG/HR PATCH TD SCH (20:16)
[2020-06-29 04:16] LABS: Basophils # (auto) 0.01 K/uL (0-0.2); Basophils % (auto) 0.1 %; Hematocrit (blood only) 37.7 % (42-52); Hemoglobin 12.2 g/dL (14.0-18.0); Immature Granulocytes # (auto) 0.02 K/uL (0.00-0.02); Immature Granulocytes % (auto) 0.2 %; Lymphocytes % (auto) 6.8 %; Mean Corpuscular Hemoglobin 30.8 pg (25-34); Mean Corpuscular Hgb Conc 32.4 g/dL (32-36); Mean Corpuscular Volume 95.2 fL (80-100); Mean Platelet Volume 10.4 fL (7.4-10.4); Monocytes # (auto) 0.33 K/uL (0.11-0.59); Monocytes % (auto) 3.2 %; Neutrophils # (auto) 9.31 K/uL (1.4-6.5); Neutrophils % (auto) 89.7 %; Platelet Count 209 K/uL (130-400); RDW Coefficient of Variation 17.4 % (11.5-14.5); RDW Standard Deviation 60.3 fL (36.4-46.3); Red Blood Count 3.96 M/uL (4.7-6.1); White Blood Count 10.37 K/uL (4.8-10.8)
[2020-06-29 04:37] LABS: BUN Creatinine Ratio 22.6 (10-20); Calcium 8.4 mg/dl (8.5-10.1); Creatinine Clr Calc Pharmacy 35.5 ml/min; Est GFR (African American) 33.2; Est GFR (Non-African American) 28.7; Potassium 4.2 mmol/L (3.5-5.1)
--- NOTE | 2020-06-29 07:04 | Hospitalist Progress Note ---
Date of Service June 29, 2020 Assessment & Plan (1) Acute respiratory distress: Jose Townsend is an 80yo male with COPD, CAD, aortic stenosis, atrial fibrillation, DM2, CKD stage III, neurogenic bladder, GERD, and dementia who presented to the ED with SOB, tachypnea, and altered mental status. Respiratory distress 2/2 pleural effusion -CT shows large right pleural effusion without density or haziness suggesting a concurrent pneumonia, low suspicion for infectious process; discontinued IV zosyn -converted IV methylprednisolone to prednisone 50mg PO qd -converted IV lasix to PO 40mg daily, attempting to diurese the fluid / effusion to avoid tapping -tachypnea has improved, patient is stable and resting comfortably -monitor for clinical improvement -on 2L NC at the moment -wean oxygen as tolerated DMII -ISS -adding 15u lantus per pharmacy recommendations, and will hold if BSG under 110 CAD -continue atorvastatin 40mg qd -continue ASA 81mg qd -continue metoprolol 50mg qd COPD -continue neb treatments prn -continue home inhalers Obstructive uropathy, neurogenic bladder -gonzalez catheter placed at patient's request Recent UTI -trace leuk esterase and trace blood -given history of straight cathing at home likely does not represent new infection FENGI: diabetic diet DVT prophylaxis: warfarin Code status: full code Dispo: PCU tele (2) Pulmonary edema: (3) Age-related physical debility: (4) Chronic respiratory failure: (5) VICTORIANO (acute kidney injury): (6) Demand ischemia: (7) History of urinary self-catheterization: (8) Long-term (current) use of anticoagulants, INR goal 2.0-3.0: (9) Peripheral arterial disease: (10) Type 2 DM with CKD stage 3 and hypertension: (11) Pressure ulcer of left leg, unstageable: (12) Chews tobacco: Admission and Anticipated Discharge Date Admission Date: June 26, 2020 Results & Data Results & Data ([facility]) Vital Signs (Past 12 Hours) Vital Signs Temp Pulse Pulse Resp BP BP Pulse Ox 06/29/20 00:00 37 C 62 22 128/65 95 06/28/20 20:54 36.8 C 06/28/20 20:10 72 21 108/40 L 93 06/28/20 20:01 66 24 102/53 L 93 (1) Pulmonary edema Chronicity: acute Qualified Code(s): J81.0 - Acute pulmonary edema
[2020-06-29] MEDS: FUROSEMIDE 40 MG TAB PO SCH (08:03)
[2020-06-29] MEDS: TAMSULOSIN HCL 0.4 MG CAP PO SCH (08:03)
[2020-06-29] MEDS: METOPROLOL SUCC 50MG EXT REL TAB PO SCH (08:03)
[2020-06-29] MEDS: ASPIRIN 81 MG ECTAB PO SCH (08:03)
[2020-06-29] MEDS: MEMANTINE HCL 10 MG TAB PO SCH ×2 (08:03→20:46)
[2020-06-29] MEDS: SERTRALINE HCL 100 MG TABLET PO SCH (08:03)
[2020-06-29] MEDS: CHOLECALCIFEROL 1,000 UNITS 25 MCG TAB PO SCH (08:04)
[2020-06-29] MEDS: ISOSORBIDE MONO EXTENDED REL 60 MG TABCR PO SCH (08:04)
[2020-06-29] MEDS: FAMOTIDINE 40 MG TABLET PO SCH (08:04)
[2020-06-29] MEDS: THIAMINE HCL 100 MG TAB PO SCH ×2 (08:04→20:46)
[2020-06-29] MEDS: INSULIN ASPART 100 UNITS/ML 3 ML PEN SC SCH ×4 (08:05→21:00)
[2020-06-29] MEDS: GENTAMICIN SULFATE 0.1% CR 15 GM TUBE EXT SCH (08:06)
[2020-06-29 11:03] LABS: INR 2.6 (0.9-1.1); Prothrombin Time 26.2 Seconds (9.0-12.0)
[2020-06-29] MEDS ORDERED: FUROSEMIDE 40 MG TAB PO ONE (14:15)
[2020-06-29] MEDS: WARFARIN SOD 7.5 MG TAB PO SCH (15:52)
[2020-06-29] MEDS: predniSONE 50 MG TAB PO SCH (16:30)
--- NOTE | 2020-06-29 16:36 | Hospitalist Progress Note ---
Date of Service June 29, 2020 Assessment & Plan (1) Acute respiratory distress: Respiratory distress 2/2 pulmonary edema and pleural effusion -to clarify - initial concern on pneumonia but after further review this was unfounded - abx stopped -continuing to try to diurese as exam and labs would suggest he's not yet dry -ongoing need for O2 - and given his baseline mentation/frailty and "lack of margin of error" at home - will ask for thoracentesis tomorrow to hopefully reduce oxygen requirement DMII -sugars adequate, continue current insulins. follow CAD -appears asymptomatic -continue atorvastatin 40mg qd -continue ASA 81mg qd -continue metoprolol 50mg qd COPD -continue neb treatments prn -continue home inhalers Obstructive uropathy, neurogenic bladder -gonzalez catheter placed at patient's request Recent UTI -trace leuk esterase and trace blood -given history of straight cathing at home likely does not represent new infection FENGI: diabetic diet DVT prophylaxis: warfarin Code status: full code Dispo: stable for med surg. PT/OT. improve oxygenation. right now goal is home but will need stable oxygenation (ie "margin of error") and ability to ambulate // would also want feeling safe taking him since she is main caregiver Admission and Anticipated Discharge Date Admission Date: June 26, 2020 Subjective notes that he's breathing fine and he could get up and walk around the raza "if it was a race, i'd win" but also seems to show litlte awareness of situation. notes that he wants to go home. dr cotter R1 revisits later w present - pt was demanding to go home - he updated on situation and she did not seem to want pt to go home either. otehrwise not really any meaningful HPI or ROS obtaianble Review of Systems Review of Systems: Unobtainable due to cognitive status Physical Exam Physical Exam: gen awake and talkative but seems fairly confused but nad heent nc at mmm lungs coarse throughout scattered rhonchi no accessory muscles good effort skin no rashes no pallor or icterus neuro no focal deficits Results & Data Results & Data ([facility]) Vital Signs (Past 12 Hours) Vital Signs Temp Pulse Pulse Resp BP BP Pulse Ox 06/29/20 16:10 97.7 F 58 L 20 116/70 96 06/29/20 09:39 98.4 F 06/29/20 08:00 66 18 135/60 97 PG Care Time/CCT Total # of Minutes Spent Total Time Spent with Patient: Total time spent is greater than 50% in coordination of care (as documented) at patient's floor/unit and/or counseling patient: Coding Level of Care Code 17433 Subseq Hosp Care Lvl 2 Diagnoses Acute respiratory distress R06.03
[2020-06-29] MEDS: INSULIN GLARGINE SOLOSTAR 100 UNITS/ML 3 ML PEN SQ SCH (18:00)
[2020-06-29] MEDS: ATORVASTATIN 40 MG TAB PO SCH (20:46)
[2020-06-29] MEDS: NITROGLYCERIN 0.2 MG/HR PATCH TD SCH (20:47)
--- NOTE | 2020-06-30 08:41 | Medical Student Progress Note ---
Date of Service June 30, 2020 Assessment & Plan (1) Acute respiratory distress: Mr. Townsend is a 80y/o M with hx of COPD (no PFT available, 2L NC at home), CHF (02/2020 EF 40-45%), CAD (s/p 2 vessel CABG 2010), aortic stenosis, a.fib on warfarin, DM2 (a1c 7.3), CKD3, neurogenic bladder, GERD, dementia, marijuana use, who is admitted to our service for management of acute respiratory distress 2/2 acute on chronic systolic HF. He is improving with diuresis but continues requiring oxygen supplementation PRN and maintaining good sat on RA. Discharge will depend on functional ability assessed by PT/OT and 's capability/resources to care for him at home. acute respiratory failure likely 2/2 acute exacerbation of chronic systolic HF with background of COPD on oxygen at home BNP on adm: 02/2020 Echo: EF 40-45% Hx of COPD, but no PFT available, on 2L/min NC at home CXR/CT on adm: pulmonary edema, bilateral pleural effusions, loculated effusion on R most recent CXR today post diuresis shows persistent bilateral pleural effusions with basilar atelectasis/consolidation per pulmonology: continue to diurese with lasix 40mg PO BID have already pulled off >6L hold on thoracentesis due to elevated INR on warfarin continue o2 supp PRN >90% stop prednisone because less likely to be COPD exacerbation COPD continue duoneb prn will need f/u with pulmonology on discharge for PFT and initiating COPD maintenance medications VICTORIANO on CKD3 BUN 52 Cr 2.22 baseline Cr around 1.5-1.6 pre-renal ratio as expected on lasix working toward negative fluid balance will monitor for increasing Cr anemia RBC 4.08, Hgb 12.4 is around baseline with his CKD a.fib rate well controlled in 60s with metoprolol succinate 50mg PO QD will continue this home dosing INR 2.5 within therapeutic range continue home warfarin DM2 ISS during adm hold home lantus CAD no acute concerns continue home statin, asa, metoprolol, imdur dementia mild, able to perform most daily activities on own continue home memantine MDD continue home sertraline GERD continue home famotidine QD maalox PRN ondansetron PRN nausea stage 3 pressure ulcer @ L posterior lower leg followed by wound care continue topical gentamicin FEN/GI: DM diet DVT ppx: warfarin full code dispo: admitted to med/surg, pending PT/OT for improved ability to ADLs, continue diuresis, improvement of oxygen requirement, feels he is about care home to his baseline level of function Admission and Anticipated Discharge Date Admission Date: June 26, 2020 Supervising Attestation Medical Student Supervision Note: I was personally present during medical student patient encounter and independen bettyy interviewed and examined the patient and verified the lema history and physical, reviewed labs and image studies, discussed the case with Greg Gilmore and agree with the findings and care plan. Acute respiratory distress sec to acute on chronic systolic - diuresed well and now on bumex home dose - initial concern of pneumonia - abx and steroids d/carolina later. Discharge planning in process Subjective States that he wants to go home, that he would feel better he were able to walk around and resume his normal activities at home. Slept well overnight without difficulty breathing. Has not yet passed stool, but not causing him discomfort, feels that he will have bowel movement today. Per "seems like he's a little more than care home back to his baseline". Review of Systems Constitutional: + fatigue and + weakness; no fever and no chills Respiratory: + dyspnea Cardiovascular: no chest pain and no palpitations Gastrointestinal: + change in bowel habits and + constipation; no abdominal pain, no nausea and no vomiting Genitourinary: no dysuria and no urinary frequency Musculoskeletal: no pain/pulsing/warmth at pressure ulcer Physical Exam Constitutional: no acute distress Respiratory: normal respiratory effort and able to speak in complete sentences; no labored breathing Auscultation: + diminished lung sounds (dimished throughout, absent at the R base) coarse breath sounds throughout all lung cervantes Cardiovascular: RRR, no murmur, no edema Heart Sounds: normal S1 and normal S2; no gallop, no murmur and no cardiac rub Vessels: normal peripheral pulses Gastrointestinal (Abdomen): normal bowel sounds, soft, nontender, no hepatosplenomegaly Skin: stage 3 pressure ulcer at L lower extremity, no new drainage, erythema at edges of wound, no tracking Psychiatric: Orientation: alert and oriented x 3 Results & Data ([facility]) Vital Signs (Past 12 Hours) Vital Signs Temp Pulse Resp BP Pulse Ox 06/30/20 08:34 58 L 96 06/30/20 07:15 36.9 C 58 L 18 119/65 93 06/30/20 00:11 36.8 C 59 L 14 125/67 97
[2020-06-30] MEDS: CHOLECALCIFEROL 1,000 UNITS 25 MCG TAB PO SCH (08:47)
[2020-06-30] MEDS: FAMOTIDINE 40 MG TABLET PO SCH (08:47)
[2020-06-30] MEDS: TAMSULOSIN HCL 0.4 MG CAP PO SCH (08:48)
[2020-06-30] MEDS: FUROSEMIDE 40 MG TAB PO SCH (08:49)
[2020-06-30] MEDS: ISOSORBIDE MONO EXTENDED REL 60 MG TABCR PO SCH (08:49)
[2020-06-30] MEDS: METOPROLOL SUCC 50MG EXT REL TAB PO SCH (08:50)
[2020-06-30] MEDS: ASPIRIN 81 MG ECTAB PO SCH (08:50)
[2020-06-30] MEDS: MEMANTINE HCL 10 MG TAB PO SCH ×2 (08:50→21:32)
[2020-06-30] MEDS: THIAMINE HCL 100 MG TAB PO SCH ×2 (08:50→21:32)
[2020-06-30] MEDS: SERTRALINE HCL 100 MG TABLET PO SCH (08:51)
[2020-06-30] MEDS: INSULIN ASPART 100 UNITS/ML 3 ML PEN SC SCH ×4 (08:52→21:44)
[2020-06-30] MEDS: GENTAMICIN SULFATE 0.1% CR 15 GM TUBE EXT SCH (09:12)
[2020-06-30 09:15] LABS: Hematocrit (blood only) 38.5 % (42-52); Hemoglobin 12.4 g/dL (14.0-18.0); Immature Granulocytes # (auto) 0.01 K/uL (0.00-0.02); Immature Granulocytes % (auto) 0.1 %; Lymphocytes # (auto) 0.95 K/uL (1.2-3.4); Lymphocytes % (auto) 12.9 %; Mean Corpuscular Hemoglobin 30.4 pg (25-34); Mean Corpuscular Hgb Conc 32.2 g/dL (32-36); Mean Corpuscular Volume 94.4 fL (80-100); Mean Platelet Volume 10.6 fL (7.4-10.4); Monocytes # (auto) 0.51 K/uL (0.11-0.59); Monocytes % (auto) 6.9 %; Neutrophils # (auto) 5.87 K/uL (1.4-6.5); Neutrophils % (auto) 80.1 %; Platelet Count 208 K/uL (130-400); RDW Coefficient of Variation 16.9 % (11.5-14.5); RDW Standard Deviation 58.4 fL (36.4-46.3); Red Blood Count 4.08 M/uL (4.7-6.1); White Blood Count 7.34 K/uL (4.8-10.8)
[2020-06-30 09:23] LABS: INR 2.5 (0.9-1.1); Prothrombin Time 25.2 Seconds (9.0-12.0)
[2020-06-30 09:32] LABS: BUN Creatinine Ratio 23.2 (10-20); Calcium 8.9 mg/dl (8.5-10.1); Creatinine Clr Calc Pharmacy 33.6 ml/min; Est GFR (African American) 31.1; Est GFR (Non-African American) 26.8; Potassium 4.1 mmol/L (3.5-5.1)
--- NOTE | 2020-06-30 10:59 | Pulmonary Consultation ---
Date of Consultation June 30, 2020 Assessment & Plan (1) Bilateral pleural effusion: I would recommend continued careful diuresis in this patient. He does have an VICTORIANO that appears to be worsening. Nephrology consultation may be warranted at this time. He does appear hypervolemic as he has lower extremity edema and chest x-ray are consistent with CHF. His proBNP was also very elevated on hospital admission. He is currently anticoagulated and thus thoracentesis cannot be performed until his INR is less than 1.7. However, I recommend continued diuresis as he does appear overloaded. I would not stop his warfarin or try to reverse the INR for a thoracentesis at this time. I would recommend considering switching furosemide to a different diuretic such as torsemide for the possibility of diuretic resistance. I will defer to the primary team. Overall, the patient does not seem interested in a thoracentesis at this time, regardless. Should his clinical status change, we would be happy to help at that time. Smoking cessation is encouraged. Lastly, I am not certain why he is currently on 50 mg of prednisone. I do not think that he has any evidence of an asthma or COPD exacerbation. Pulmonary will follow from the periphery. Thank you for the consult. Please call with questions. (2) Chronic hypoxemic respiratory failure: (3) Long-term (current) use of anticoagulants, INR goal 2.0-3.0: (4) Pulmonary edema: Chronicity: acute Qualified Code(s): J81.0 - Acute pulmonary edema (5) Systolic CHF, acute on chronic: (6) Permanent atrial fibrillation: (7) VICTORIANO (acute kidney injury): History of Present Illness Reason for Consultation: Pleural effusions Requesting Physician: Resident team Attending Physician: Emilie Red MD History of Present Illness 80-year-old male with a past medical history of systolic CHF with an EF of 40 to 45%, atrial fibrillation on warfarin, dementia, GERD and reported history of COPD who presented to the hospital due to increasing shortness of breath. Patient is not very interested in participating in the interview today as he continued to lay on his right side and was occasionally mumbling words. I asked him if he knew the date or the year and he said that he did not. He then told me that he wished me to stop asking questions. He at one point said that he "does not know all the vegetative things". I asked him if he knew who our president was and he indicated that he did not. He did say that he was feeling less short of breath than he did originally. He told me that he was admitted to the hospital "a couple months ago". Notably, he was admitted to the hospital on 06/27/2020. He was recently in the hospital on 06/14/2020 due to a urinary tract infection. He denies any chest pain, fevers or chills. Pulmonary medicine is consulted for a moderate right sized pleural effusion that was seen on CT chest on 06/26/2020. Interstitial pulmonary edema with groundglass opacities was also seen on that CT. I ordered for repeat chest x-ray today which demonstrated cardiomegaly and findings suggestive of CHF. He does appear to have some fluid within the fissure along with blunted diaphragms bilaterally. He was getting diuresed with IV Lasix during his hospitalization and his creatinine started to trend upwards and thus he was switched to p.o. Lasix. His BNP on 06/26/2020 was 20,346. This is the highest BMP that he had since October 2018. The patient notes that he lives with his in [place]. He describes that he smokes marijuana daily. It was difficult to determine whether he is vaping marijuana or smoking in some other fashion. He noted that there are "tubes" that he smokes marijuana through. He denies any tobacco abuse. He is a chart history of COPD. I am not certain if there is a history of pulmonary function testing suggestive of obstructive lung disease. His home medications indicate that he is on home oxygen with 2 L prescribed for ambulation. He also has duo nebs listed to be used 4 times daily as needed. No inhalers are listed on the inpatient medication side. He does have Combivent Respimat ordered for as needed use. He is also ordered for 50 mg of p.o. prednisone. I am not certain why he is on prednisone at this time. Additionally, I did speak with the bedside nurse who noted that he was oriented earlier in the day. She also indicated to me that he was not in a good mood and wanted to go home. The patient expressed to me several times that he wishes to go home. Allergies Allergy/AdvReac Type Severity Reaction Status Date / Time codeine AdvReac Intermediate EMESIS Verified 06/26/20 20:36 Iodinated Contrast Media AdvReac Mild NAUSEA Verified 06/26/20 20:36 Home Medications Home Medications Medication Instructions Recorded Confirmed Type lancets #100 ea 02/12/19 06/26/20 Rx pen needle, diabetic 32 gauge x #100 ea 02/12/19 06/26/20 Rx 1/4" blood sugar diagnostic #100 ea 02/13/19 06/26/20 Rx cholecalciferol (vitamin D3) 125 5,000 unit PO DAILY #30 tab 02/13/19 06/26/20 Rx mcg (5,000 unit) tablet thiamine HCl (vitamin B1) 100 mg 100 mg PO BID tab 02/13/19 06/26/20 History tablet atorvastatin 40 mg tablet 40 mg PO HS #90 tab 06/13/19 06/26/20 Rx tramadol 50 mg tablet 50 mg PO Q6H PRN #30 tab 12/06/19 06/26/20 Rx ipratropium 20 mcg-albuterol 100 1 puff INHALATION QID PRN #4 gm 02/18/20 06/26/20 Rx mcg/actuation mist for inhalation sertraline 100 mg tablet 100 mg PO DAILY #90 tab 02/18/20 06/26/20 Rx Tresiba FlexTouch U-100 15 units SUBCUT DAILY 02/26/20 06/26/20 History furosemide 40 mg PO DAILY 02/26/20 06/26/20 History memantine 10 mg tablet 10 mg PO BID #180 tab 03/13/20 06/26/20 Rx famotidine 40 mg tablet 40 mg PO DAILY tab 05/01/20 06/26/20 History gentamicin 0.1 % topical ointment 1 applic TOPICAL DAILY 14 Days #30 05/16/20 06/26/20 Rx g warfarin 5 mg tablet See Rx Instructions .ROUTE .COMPLEX 05/21/20 06/26/20 History aspirin 81 mg PO DAILY 06/12/20 06/26/20 History metoprolol succinate 50 mg PO DAILY 30 Days #30 tab 06/14/20 06/26/20 Rx Oxygen Home #1 ea 06/20/20 06/26/20 Rx Portable Oxygen #1 ea 06/20/20 06/26/20 Rx ipratropium 0.5 mg-albuterol 3 mg 3 ml INHALATION Q4H PRN #180 ml 10/09/20 10/15/20 Rx (2.5 mg base)/3 mL nebulization soln nitroglycerin 0.2 mg/hr 1 patch TRANSDERMAL QPM #30 ea 06/20/20 06/26/20 Rx transdermal 24 hour patch nitroglycerin 400 mcg/spray 1 spray SUBLINGUAL Q5M PRN #4.9 gm 06/20/20 06/26/20 Rx translingual tamsulosin 0.4 mg capsule 0.8 mg PO DAILY #180 cap 06/20/20 06/26/20 Rx isosorbide mononitrate 60 mg 60 mg PO DAILY #30 tab 06/23/20 06/26/20 Rx tablet,extended release 24 hr insulin aspart U-100 [Novolog 5 unit SUBCUT .TIDUD 06/26/20 06/26/20 History Flexpen U-100 Insulin] Patient History Medical History Anemia Anxiety with depression Cardiac ischemia Cellulitis of left leg without foot CKD (chronic kidney disease) stage 3, GFR 30-59 ml/min Cognitive changes Diabetes mellitus type 2, uncontrolled DM (diabetes mellitus) Elevated lactic acid level Hearing loss Hypertension Hypotension Subtherapeutic international normalized ratio (INR) Ulceration Surgical History H/O hemicolectomy Hx of CABG Family History Mother Hypertension Social History Smoking Status: Never smoker Tobacco Type: Smokeless Tobacco (Dip or Chew) Second Hand Exposure: No; Hx Alcohol Use: Yes Alcohol type: hard liquor Hx Substance Use: No Preferred Language: Montserratian Communication Ability: Effective Contract Clerk Required: No Beliefs That Will Affect Care: None marital status: Current Living Situation: Spouse Other Information That Helps Us Care for You: No Feels Safe at Home: Yes Safety Concerns: Feels Safe At This Time Assistive Devices: Walker Review of Systems Review of Systems: Unobtainable due to mental health condition The patient did deny any chest pain. He felt that his shortness of breath is improved. Otherwise review of systems is limited as he did not wish to partake in the interview. Physical Exam Constitutional: Obese appearing elderly male in no apparent distress. He is laying on his right side. Eyes: PERRL, conjunctivae normal, anicteric sclerae ENMT: external ear and nose normal, oropharynx normal Ears: + hearing impairment Neck: + thick neck Respiratory: Decreased breath bilaterally with minimal crackles in the right lower lobe. Cardiovascular: Rate/Rhythm: regular rate and regular rhythm Heart Sounds: normal S1 and + murmur 1-2+ pitting edema in the lower extremities bilaterally. Gastrointestinal (Abdomen): normal bowel sounds, soft, nontender, no hepatosplenomegaly Musculoskeletal: no cyanosis or clubbing, extremities motor strength 5/5 Skin: no rashes, warm and dry Neurologic: PERRL, EOMI, accommodation nl, no face palsy, no dysarthria Psychiatric: Orientation: alert and oriented to person Results & Data Results & Data ([facility]) Vital Signs (Past 12 Hours) Vital Signs Temp Pulse Resp BP Pulse Ox 06/30/20 08:34 58 L 96 06/30/20 07:15 98.4 F 58 L 18 119/65 93 06/30/20 00:11 98.2 F 59 L 14 125/67 97 reviewed vital signs, labs and imaging PG Care Time/CCT Total # of Minutes Spent Total Time Spent with Patient: Total time spent is greater than 50% in coordination of care (as documented) at patient's floor/unit and/or counseling patient: Coding Level of Care Code 28286 Inpt Consult Level 4 Diagnoses Bilateral pleural effusion J90 Chronic hypoxemic respiratory failure J96.11 Long-term (current) use of anticoagulants, INR goal 2.0-3.0 Z79.01 Pulmonary edema J81.0 Chronicity: acute Systolic CHF, acute on chronic I50.23 Permanent atrial fibrillation I48.2 VICTORIANO (acute kidney injury) N17.9
--- NOTE | 2020-06-30 11:01 | XRay Report ---
XR chest 1V portable CLINICAL HISTORY: post diuresis COMPARISON STUDY: 06/26/2020 FINDINGS: The heart remains enlarged. There are postsurgical changes of midline sternotomy. There is a right-sided A-Port catheter. There is continued radiographic evidence of congestive failure with bi lateral pleural effusions and associated basilar opacities.[The findings are stable to minimally prog ressive. IMPRESSION: Cardiomegaly and radiographic evidence of congestive failure/fluid overload. Persistent b ilateral pleural effusions with basilar atelectasis/consolidation. ACT 112: Negative or not required by law. Electronically signed by: Nagi Springer M.D. 06/30/2020 11:00 AM
--- NOTE | 2020-06-30 15:33 | Nephrology Consultation ---
Date of Consultation June 30, 2020 Assessment & Plan (1) VICTORIANO (acute kidney injury): * VICTORIANO likely due to intravascular volume depletion related to diuretic therapy in the setting of severe * Urine sediment is acellular, abdominal CT negative for obstruction * Electrolyte balance is acceptable at this time. No acute indication for ROAD REPAIRER (2) Chronic kidney disease, stage III (moderate): * Baseline Cr 1.6 - 1.8 (3) Severe aortic stenosis: * Although echocardiogram shows moderate to severe , patient has CHF, moderate R pleural effusion, lethargy and worsening renal function in response to diuretic therapy. He appears to clinically have severe . * Patient likely is not a candidate for TAVR due to dementia and poor functional status * Will change from furosemide to bumetanide 1 mg po daily for improved bioavailability * Recommend discussion w/ patient and family regarding goals of care. Patient did not have thoracentesis due to anticoagulation therapy, he appears clinically to have severe and is likely not a TAVR candidate, renal function worsens in response to diuretic therapy. Consider consultation w/ palliative care. (4) COPD (chronic obstructive pulmonary disease): (5) Dementia: History of Present Illness Reason for Consultation: VICTORIANO/CKD Attending Physician: Emilie Red MD History of Present Illness Mr. Townsend is an 80 year old white male who is seen at the request of Dr. Burnham for evaluation of VICTORIANO/CKD. Medical records in the EMR were reviewed today and are summarized as follows: Mr. Townsend has stage III CKD w/ baseline Cr 1.6 - 1.8 w/ EGFR ~ 44 cc/min. He has not undergone Nephrology evaluation in the past. 07/[address] without contrast revealed normal size kidneys without obstruction. His urinalysis this hospitalization is negative for blood or protein. Mr. Townsend's renal impairment is likely on the basis of impaired perfusion associated w/ moderate - severe aortic stenosis. Echocardiogram this hospitalization revealed LVEF 50 - 55% but moderate to severe aortic stenosis. Mr. Townsend was admitted to [facility] 06/27/20 for evaluation of lethargy and progressive dyspnea. Evaluation revealed mild CHF and a moderate R pleural effusion. Thoracentesis was withheld due to anticoagulatiom status. Creatinine has risen from 1.6 to 2.2 following diuretic therapy. Mr. Townsend appears lethargic but will awaken to my voice. He was oriented to self and place. He did not follow commands or cooperate w/ the physical exam. Mr. Townsend indicated that he wants to go home Allergies Allergy/AdvReac Type Severity Reaction Status Date / Time codeine AdvReac Intermediate EMESIS Verified 06/26/20 20:36 Iodinated Contrast Media AdvReac Mild NAUSEA Verified 06/26/20 20:36 Home Medications Home Medications Medication Instructions Recorded Confirmed Type lancets #100 ea 02/12/19 06/26/20 Rx pen needle, diabetic 32 gauge x #100 ea 02/12/19 06/26/20 Rx 1/4" blood sugar diagnostic #100 ea 02/13/19 06/26/20 Rx cholecalciferol (vitamin D3) 125 5,000 unit PO DAILY #30 tab 02/13/19 06/26/20 Rx mcg (5,000 unit) tablet thiamine HCl (vitamin B1) 100 mg 100 mg PO BID tab 02/13/19 06/26/20 History tablet atorvastatin 40 mg tablet 40 mg PO HS #90 tab 06/13/19 06/26/20 Rx tramadol 50 mg tablet 50 mg PO Q6H PRN #30 tab 12/06/19 06/26/20 Rx ipratropium 20 mcg-albuterol 100 1 puff INHALATION QID PRN #4 gm 02/18/20 06/26/20 Rx mcg/actuation mist for inhalation sertraline 100 mg tablet 100 mg PO DAILY #90 tab 02/18/20 06/26/20 Rx Tresiba FlexTouch U-100 15 units SUBCUT DAILY 02/26/20 06/26/20 History furosemide 40 mg PO DAILY 02/26/20 06/26/20 History memantine 10 mg tablet 10 mg PO BID #180 tab 03/13/20 06/26/20 Rx famotidine 40 mg tablet 40 mg PO DAILY tab 05/01/20 06/26/20 History gentamicin 0.1 % topical ointment 1 applic TOPICAL DAILY 14 Days #30 05/16/20 06/26/20 Rx g warfarin 5 mg tablet See Rx Instructions .ROUTE .COMPLEX 05/21/20 06/26/20 History aspirin 81 mg PO DAILY 06/12/20 06/26/20 History metoprolol succinate 50 mg PO DAILY 30 Days #30 tab 06/14/20 06/26/20 Rx Oxygen Home #1 ea 06/20/20 06/26/20 Rx Portable Oxygen #1 ea 06/20/20 06/26/20 Rx ipratropium 0.5 mg-albuterol 3 mg 3 ml INHALATION Q4H PRN #180 ml 06/20/20 06/26/20 Rx (2.5 mg base)/3 mL nebulization soln nitroglycerin 0.2 mg/hr 1 patch TRANSDERMAL QPM #30 ea 06/20/20 06/26/20 Rx transdermal 24 hour patch nitroglycerin 400 mcg/spray 1 spray SUBLINGUAL Q5M PRN #4.9 gm 06/20/20 06/26/20 Rx translingual tamsulosin 0.4 mg capsule 0.8 mg PO DAILY #180 cap 06/20/20 06/26/20 Rx isosorbide mononitrate 60 mg 60 mg PO DAILY #30 tab 06/23/20 06/26/20 Rx tablet,extended release 24 hr insulin aspart U-100 [Novolog 5 unit SUBCUT .TIDUD 06/26/20 06/26/20 History Flexpen U-100 Insulin] Patient History Medical History VICTORIANO (acute kidney injury) Anemia Anxiety with depression Bilateral pleural effusion Cardiac ischemia Cellulitis of left leg without foot Chronic hypoxemic respiratory failure CKD (chronic kidney disease) stage 3, GFR 30-59 ml/min Cognitive changes Diabetes mellitus type 2, uncontrolled DM (diabetes mellitus) Elevated lactic acid level Hearing loss Hypertension Hypotension Subtherapeutic international normalized ratio (INR) Systolic CHF, acute on chronic Ulceration Surgical History H/O hemicolectomy Hx of CABG Family History Mother Hypertension Social History Smoking Status: Never smoker Tobacco Type: Smokeless Tobacco (Dip or Chew) Second Hand Exposure: No; Hx Alcohol Use: Yes Alcohol type: hard liquor Hx Substance Use: No Preferred Language: Omani Communication Ability: Effective Automobile Tire Builder Required: No Beliefs That Will Affect Care: None marital status: Current Living Situation: Spouse Other Information That Helps Us Care for You: No Feels Safe at Home: Yes Safety Concerns: Feels Safe At This Time Assistive Devices: Walker Review of Systems Review of Systems: Unobtainable due to cognitive status Physical Exam Constitutional: not in distress Eyes: PERRL, conjunctivae normal, anicteric sclerae ENMT: external ear and nose normal, oropharynx normal Neck: trachea midline, no thyromegaly Respiratory: normal respiratory effort Auscultation: + diminished lung sounds (RLL) Cardiovascular: Rate/Rhythm: regular rate and regular rhythm Heart Sounds: no cardiac rub Extremities: no edema Gastrointestinal (Abdomen): normal bowel sounds, soft, nontender, no hepatosplenomegaly Skin: no rashes, warm and dry Results & Data ([facility]) Vital Signs (Past 12 Hours) Vital Signs Temp Pulse Resp BP Pulse Ox 06/30/20 08:34 58 L 96 06/30/20 07:15 36.9 C 58 L 18 119/65 93 Laboratory Results Laboratory Tests 06/26/20 06/30/20 06/30/20 20:10 08:39 08:39 WBC 7.34 Hgb 12.4 L Hct 38.5 L Plt Count 208 Sodium 136 Potassium 4.1 Chloride 100 Carbon Dioxide 32 BUN 52 H Creatinine 2.22 H Glucose 201 H Urine Color Yellow Urine Appearance Clear Urine pH 5.0 Ur Specific [place] 1.018 Urine Protein Trace H Urine Glucose (UA) Negative Urine Blood Trace H Urine Nitrite Negative Urine RBC (Auto) 0-4 PG Care Time/CCT Total # of Minutes Spent Total Time Spent with Patient: Total time spent is greater than 50% in coordination of care (as documented) at patient's floor/unit and/or counseling patient: Coding Level of Care Code 75724 Inpt Consult Level 5 Diagnoses VICTORIANO (acute kidney injury) N17.9 Chronic kidney disease, stage III (moderate) N18.30 Severe aortic stenosis I35.0 COPD (chronic obstructive pulmonary disease) J44.9 COPD type: unspecified COPD Dementia F03.90 (1) COPD (chronic obstructive pulmonary disease) COPD type: unspecified COPD Qualified Code(s): J44.9 - Chronic obstructive pulmonary disease, unspecified
[2020-06-30] MEDS: WARFARIN SOD 10 MG TAB PO SCH (16:02)
[2020-06-30] MEDS: INSULIN GLARGINE SOLOSTAR 100 UNITS/ML 3 ML PEN SQ SCH (18:07)
[2020-06-30] MEDS: ATORVASTATIN 40 MG TAB PO SCH (21:32)
[2020-06-30] MEDS: NITROGLYCERIN 0.2 MG/HR PATCH TD SCH (21:33)
[2020-06-30 21:54] LABS: Appearance Urine Clear (Clear); Bilirubin Urine Negative (Negative); Blood Urine Negative (Negative); Color Urine Yellow; Glucose Urine UA Negative (Negative); Ketones Urine Negative (Negative); Leukocyte Esterase Urine Negative (Negative); Nitrite Urine Negative (Negative); Protein Urine Negative (Negative); Specific Gravity Urine 1.013 (1.000-1.030); Urobilinogen Urine Negative (Negative)
[2020-06-30 22:17] LABS: Creatinine Urine Random 52.4 mg/dl; Protein Creatinine Ratio Urine 0.1 (0-0.2)
[2020-07-01 07:01] LABS: Hematocrit (blood only) 40.7 % (42-52); Hemoglobin 13.5 g/dL (14.0-18.0); Mean Corpuscular Hemoglobin 31.3 pg (25-34); Mean Corpuscular Hgb Conc 33.2 g/dL (32-36); Mean Corpuscular Volume 94.2 fL (80-100); Mean Platelet Volume 10.4 fL (7.4-10.4); Platelet Count 203 K/uL (130-400); RDW Coefficient of Variation 16.8 % (11.5-14.5); RDW Standard Deviation 58.4 fL (36.4-46.3); Red Blood Count 4.32 M/uL (4.7-6.1)
[2020-07-01 07:11] LABS: INR 2.3 (0.9-1.1); Prothrombin Time 23.6 Seconds (9.0-12.0)
[2020-07-01 07:26] LABS: Albumin Level 2.9 gm/dl (3.4-5.0); BUN Creatinine Ratio 23.4 (10-20); Calcium 8.4 mg/dl (8.5-10.1); Creatinine Clr Calc Pharmacy 34.2 ml/min; Est GFR (African American) 31.7; Est GFR (Non-African American) 27.4
[2020-07-01 07:29] LABS: Bilirubin,Total 0.8 mg/dl (0.2-1); Total Protein 5.9 gm/dl (6.4-8.2)
--- NOTE | 2020-07-01 08:45 | Medical Student Progress Note ---
Date of Service July 01, 2020 Assessment & Plan (1) Acute respiratory distress: Mr. Townsend is a 80y/o M with hx of COPD (no PFT available, 2L NC at home), CHF (02/2020 EF 40-45%), CAD (s/p 2 vessel CABG 2010), aortic stenosis, a.fib on warfarin, DM2 (a1c 7.3), CKD3, neurogenic bladder, GERD, dementia, marijuana use, who is admitted to our service for management of acute respiratory distress 2/2 acute on chronic systolic HF. He is improving with diuresis but continues requiring oxygen supplementation PRN. Discharge will depend on functional ability assessed by PT/OT and 's capability/resources to care for him at home. acute respiratory failure likely 2/2 acute exacerbation of chronic systolic HF with background of COPD on oxygen at home BNP on adm: 02/2020 Echo: EF 40-45% Hx of COPD, but no PFT available, on 2L/min NC at home CXR/CT on adm: pulmonary edema, bilateral pleural effusions, loculated effusion on R most recent CXR today post diuresis shows persistent bilateral pleural effusions with basilar atelectasis/consolidation per pulmonology: continue to diurese hold on thoracentesis due to elevated INR on warfarin stopped prednisone because less likely to be COPD exacerbation per nephrology: switch furosemide to bumetanide 1mg PO QD for better bioavailability continue o2 supp PRN >90% COPD continue duoneb prn will need f/u with pulmonology on discharge for PFT and initiating COPD maintenance medications VICTORIANO on CKD3 BUN 51 now, down from 52 Cr 2.18 now, down from 2.18 baseline Cr around 1.6-1.8 per nephrology: VICTORIANO due to diuresis on severe aortic stenosis will monitor for increasing Cr anemia RBC now 4.23, up from 4.08 Hgb now 13.5, up from 12.4 this is around his baseline with CKD a.fib rate well controlled in 70s with metoprolol succinate 50mg PO QD will continue this home dosing INR 2.3 today within therapeutic range continue home warfarin DM2 ISS during adm hold home lantus CAD no acute concerns continue home statin, asa, metoprolol, imdur dementia mild, able to perform most daily activities on own continue home memantine per OT: he is close to functional baseline can discharge home if 24/7 supervision and assistance available if n/a, need to consider IP rehab per PT: at baseline MOD IND for mobility for short distance no further PT MDD continue home sertraline GERD continue home famotidine QD maalox PRN ondansetron PRN nausea stage 3 pressure ulcer @ L posterior lower leg followed by wound care continue topical gentamicin FEN/GI: DM diet DVT ppx: warfarin full code dispo: admitted to med/surg, continue diuresis, improvement of oxygen requirement, case management working on getting pt to [facility] Admission and Anticipated Discharge Date Admission Date: June 26, 2020 Supervising Attestation Medical Student Supervision Note: I was personally present during medical student patient encounter and independently interviewed and examined the patient and verified the lema history and physical, reviewed labs and image studies, discussed the case with Greg Gilmore and agree with the findings and care plan. Acute hypoxic resp failure acute on chronic systolic chf pleural effusion severe copd VICTORIANO on CKD3 - diuresed well - 6L down since admission. now on bumex oral - no plans for thoracentesis. - no concern of copd exacerbation. - considering renal function and severe - frequent hospitalization - recommendation to consult palliative care Subjective Again states that he wants to go home. Slept well overnight without difficulty breathing. Had bowel movement yesterday, no longer having abdominal discomfort. Our team was able to speak with his today about goals of care and starting discussion of palliative care. She is receptive and understands the need for this discussion, and would like for her daughter to be present for the discussion with the palliative care team. Review of Systems Constitutional: + fatigue and + weakness; no fever and no chills Respiratory: + dyspnea Cardiovascular: no chest pain and no palpitations Gastrointestinal: no abdominal pain, no nausea, no vomiting and no change in bowel habits Genitourinary: no dysuria and no urinary frequency Musculoskeletal: no pain/pulsing/warmth at pressure ulcer Physical Exam Physical Exam: Constitutional no acute distress Respiratory normal respiratory effort and able to speak in complete sentences; no labored breathing Auscultation: + diminished lung sounds (diminished throughout, absent at the R base) coarse breath sounds throughout all lung cervantes Cardiovascular irregularly irregular, no edema Heart Sounds: normal S1 and normal S2; systolic murmur 2/6 at R upper sternal border, no gallop, no rub Vessels: normal peripheral pulses Gastrointestinal (Abdomen) normal bowel sounds, soft, nontender, no hepatosplenomegaly Skin stage 3 pressure ulcer at L lower extremity, no new drainage, erythema at edges of wound, no tracking, no crepitus Psychiatric Orientation: alert and oriented x 3 Results & Data ([facility]) Vital Signs (Past 12 Hours) Vital Signs Temp Pulse Resp BP Pulse Ox 07/01/20 07:07 36.5 C 74 18 138/76 96 06/30/20 23:24 36.4 C L 69 18 107/49 L 94 06/30/20 21:31 83 120/67 92
[2020-07-01] MEDS ORDERED: BUMETANIDE 1 MG TAB PO SCH (09:00)
[2020-07-01] MEDS: INSULIN ASPART 100 UNITS/ML 3 ML PEN SC SCH ×4 (09:18→21:23)
[2020-07-01] MEDS: CHOLECALCIFEROL 1,000 UNITS 25 MCG TAB PO SCH (09:20)
[2020-07-01] MEDS: METOPROLOL SUCC 50MG EXT REL TAB PO SCH (09:20)
[2020-07-01] MEDS: MEMANTINE HCL 10 MG TAB PO SCH ×2 (09:20→21:23)
[2020-07-01] MEDS: TAMSULOSIN HCL 0.4 MG CAP PO SCH (09:20)
[2020-07-01] MEDS: FAMOTIDINE 40 MG TABLET PO SCH (09:20)
[2020-07-01] MEDS: SERTRALINE HCL 100 MG TABLET PO SCH (09:21)
[2020-07-01] MEDS: ISOSORBIDE MONO EXTENDED REL 60 MG TABCR PO SCH (09:22)
[2020-07-01] MEDS: THIAMINE HCL 100 MG TAB PO SCH ×2 (09:22→21:21)
[2020-07-01] MEDS: ASPIRIN 81 MG ECTAB PO SCH (09:23)
[2020-07-01] MEDS: GENTAMICIN SULFATE 0.1% CR 15 GM TUBE EXT SCH (09:23)
--- NOTE | 2020-07-01 10:33 | Nephrology Progress Note ---
Date of Service July 01, 2020 Assessment & Plan (1) VICTORIANO (acute kidney injury): * VICTORIANO likely due to intravascular volume depletion related to diuretic therapy in the setting of severe * Patient is nonoliguric. Unfortunately he is developing metabolic alkalosis and worsening renal function in response to diuretic therapy * Urine sediment is acellular, abdominal CT negative for obstruction * Electrolyte balance is acceptable at this time. No acute indication for NETWORK DIRECTOR (2) Chronic kidney disease, stage III (moderate): * Baseline Cr 1.6 - 1.8 (3) Severe aortic stenosis: * Although echocardiogram shows moderate to severe , patient has CHF, moderate R pleural effusion, lethargy worsening renal function and metabolic alkalosis in response to diuretic therapy. He appears to clinically have severe . * Patient likely is not a candidate for TAVR due to dementia and poor functional status * Will change from furosemide to bumetanide 0.5 mg po daily for improved bioavailability * Recommend discussion w/ patient and family regarding goals of care. Patient did not have thoracentesis due to anticoagulation therapy, he appears clinically to have severe and is likely not a TAVR candidate, renal function worsens in response to diuretic therapy. Consider consultation w/ palliative care. (4) COPD (chronic obstructive pulmonary disease): (5) Dementia: Admission and Anticipated Discharge Date Admission Date: June 26, 2020 Subjective Mr. Townsend was seen & examined in his hospital room this morning. He reported that his breathing is comfortable and he wants to go home Review of Systems Review of Systems: Unobtainable due to mental health condition Physical Exam Constitutional: not in distress Eyes: PERRL, conjunctivae normal, anicteric sclerae ENMT: external ear and nose normal, oropharynx normal Neck: trachea midline, no thyromegaly Respiratory: normal respiratory effort Auscultation: + diminished lung sounds (RLL) Cardiovascular: Rate/Rhythm: regular rate and regular rhythm Heart Sounds: no cardiac rub Extremities: no edema Gastrointestinal (Abdomen): normal bowel sounds, soft, nontender, no hepatosplenomegaly Skin: no rashes, warm and dry Results & Data ([facility]) Vital Signs (Past 12 Hours) Vital Signs Temp Pulse Resp BP Pulse Ox 07/01/20 07:07 36.5 C 74 18 138/76 96 06/30/20 23:24 36.4 C L 69 18 107/49 L 94 Laboratory Results Laboratory Tests 07/01/20 07/01/20 06:53 06:53 WBC 7.80 Hgb 13.5 L Hct 40.7 L Plt Count 203 Sodium 141 Potassium 4.0 Chloride 102 Carbon Dioxide 34 H BUN 51 H Creatinine 2.18 H Glucose 125 H PG Care Time/CCT Total # of Minutes Spent Total Time Spent with Patient: Total time spent is greater than 50% in coordination of care (as documented) at patient's floor/unit and/or counseling patient: Coding Level of Care Code 04999 Subseq Hosp Care Lvl 3 Diagnoses VICTORIANO (acute kidney injury) N17.9 Chronic kidney disease, stage III (moderate) N18.30 Severe aortic stenosis I35.0 COPD (chronic obstructive pulmonary disease) J44.9 COPD type: unspecified COPD Dementia F03.90 (1) COPD (chronic obstructive pulmonary disease) COPD type: unspecified COPD Qualified Code(s): J44.9 - Chronic obstructive pulmonary disease, unspecified
--- NOTE | 2020-07-01 12:42 | Palliative Care Consultation ---
Date of Consultation July 01, 2020 Assessment & Plan (1) Palliative care encounter: This patient is an 80 year old male who presented to the [facility] with SOB. He just had a recent admission 06/12/20-06/14/20 for similar symptoms, and including a UTI; was treated and then discharged home with Home Health services. Additional PMH includes: CHF (EF 40-45%), DM2, CKD3, Depression, neurogenic bladder, BPH, GERD, URIAH, peripheral neuropathy, and dementia. That patient has been in a cycle of getting discharged from the hospital and compliant at home; however, stops monitoring his salt intake, and declines from there. He lives at home with his , Ivonne and she reports that it has been more challenging overall providing care for him as she is frail herself. Lengthy conversations have been held by the resident team regarding goals of care as he has multiple comorbidities that are not repairable. he is not a TAVR candidate. Palliative Care was consulted to discuss code status and goals of care. -I met with the patient in room 377 who was lying in his hospital bed in no apparent distress. The box fan was blowing on him which helps his breathing. -His , Niya was at the bedside. we arranged to have a family meeting with daughter Alycia on the phone at 1430. -The patient has become relatively agitated regarding being in the hospital. He made little to no eye contact with me, but did answer questions when I asked him directly. He did listen to our entire conversation regarding goals of care. -We talked about his code status and he was clear he did not want to be placed on a ventilator or have CPR if his chance of meaningful survival was altered. DNR/DNI reflected in the computer. -We discussed goals of care and options that included home with additional caregiver support and hospice, SNF with some short term gentle rehab with an eventual transition to hospice, or SNF without skilled services and focus purely on Hospice. -While patient is noted to have dementia, patient was able to participate fully in the conversation. FAST score up to 6a/b indicating moderately severe dementia. -Family all in agreement they would like to see if he could qualify for SNF with gentle rehab and see how things go with an eventual transition to Hospice. -Hospice diagnosis could include: 1. CHF 2. COPD 3. 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 This was directly discussed with the patient who defered to his to sign the form. A copy was placed on the chart and she has the original. -He does use medical marijuana and would like to continue at a SNF. I explained that they all have different policies regarding that, and would pass that information along to get him an answer. -All of the above was discussed with the watch case polisher, Kaylen who reached out to them to discuss facility options for referral and I did discuss and update Dr. Parson with the resident team. -I did discuss Roxanol and how it could provide him some relief from air hunger. He was not interested in trialing at this time. Palliative will follow peripherally for now. -PPS: 40% (2) Chronic kidney disease, stage III (moderate): (3) Systolic CHF, acute on chronic: (4) Chronic hypoxemic respiratory failure: History of Present Illness Reason for Consultation: Goals of care Requesting Physician: Dr. Byrd Attending Physician: Emilie Red MD History of Present Illness This patient is an 80 year old male who presented to the [facility] with SOB. He just had a recent admission 06/12/20-06/14/20 for similar symptoms, and including a UTI; was treated and then discharged home with Home Health services. Additional PMH includes: CHF (EF 40-45%), DM2, CKD3, Depression, neurogenic bladder, BPH, GERD, URIAH, peripheral neuropathy, and dementia. That patient has been in a cycle of getting discharged from the hospital and compliant at home; however, stops monitoring his salt intake, and declines from there. He lives at home with his , Ivonne and she reports that it has been more challenging overall providing care for him as she is frail herself. Lengthy conversations have been held by the resident team regarding goals of care as he has multiple comorbidities that are not repairable. he is not a TAVR candidate. Palliative Care was consulted to discuss code status and goals of care. Please see A/P for further details. Thank you kindly for involving the palliative care consultation service with this patient. We will follow as necessary. Allergies Allergy/AdvReac Type Severity Reaction Status Date / Time codeine AdvReac Intermediate EMESIS Verified 10/15/20 20:36 Iodinated Contrast Media AdvReac Mild NAUSEA Verified 06/26/20 20:36 Home Medications Home Medications Medication Instructions Recorded Confirmed Type lancets #100 ea 02/12/19 06/26/20 Rx pen needle, diabetic 32 gauge x #100 ea 02/12/19 06/26/20 Rx 1/4" blood sugar diagnostic #100 ea 02/13/19 06/26/20 Rx cholecalciferol (vitamin D3) 125 5,000 unit PO DAILY #30 tab 02/13/19 06/26/20 Rx mcg (5,000 unit) tablet thiamine HCl (vitamin B1) 100 mg 100 mg PO BID tab 02/13/19 06/26/20 History tablet atorvastatin 40 mg tablet 40 mg PO HS #90 tab 06/13/19 06/26/20 Rx tramadol 50 mg tablet 50 mg PO Q6H PRN #30 tab 12/06/19 06/26/20 Rx ipratropium 20 mcg-albuterol 100 1 puff INHALATION QID PRN #4 gm 02/18/20 06/26/20 Rx mcg/actuation mist for inhalation sertraline 100 mg tablet 100 mg PO DAILY #90 tab 02/18/20 06/26/20 Rx Tresiba FlexTouch U-100 15 units SUBCUT DAILY 02/26/20 06/26/20 History furosemide 40 mg PO DAILY 02/26/20 06/26/20 History memantine 10 mg tablet 10 mg PO BID #180 tab 03/13/20 06/26/20 Rx famotidine 40 mg tablet 40 mg PO DAILY tab 05/01/20 06/26/20 History gentamicin 0.1 % topical ointment 1 applic TOPICAL DAILY 14 Days #30 05/16/20 06/26/20 Rx g warfarin 5 mg tablet See Rx Instructions .ROUTE .COMPLEX 05/21/20 06/26/20 History aspirin 81 mg PO DAILY 06/12/20 06/26/20 History metoprolol succinate 50 mg PO DAILY 30 Days #30 tab 06/14/20 06/26/20 Rx Oxygen Home #1 ea 06/20/20 06/26/20 Rx Portable Oxygen #1 ea 06/20/20 06/26/20 Rx ipratropium 0.5 mg-albuterol 3 mg 3 ml INHALATION Q4H PRN #180 ml 06/20/20 1 Rx (2.5 mg base)/3 mL nebulization soln nitroglycerin 0.2 mg/hr 1 patch TRANSDERMAL QPM #30 ea 06/20/20 06/26/20 Rx transdermal 24 hour patch nitroglycerin 400 mcg/spray 1 spray SUBLINGUAL Q5M PRN #4.9 gm 06/20/20 06/26/20 Rx translingual tamsulosin 0.4 mg capsule 0.8 mg PO DAILY #180 cap 06/20/20 06/26/20 Rx isosorbide mononitrate 60 mg 60 mg PO DAILY #30 tab 06/23/20 06/26/20 Rx tablet,extended release 24 hr insulin aspart U-100 [Novolog 5 unit SUBCUT .TIDUD 06/26/20 06/26/20 History Flexpen U-100 Insulin] Patient History Medical History VICTORIANO (acute kidney injury) Anemia Anxiety with depression Bilateral pleural effusion Cardiac ischemia Cellulitis of left leg without foot Chronic hypoxemic respiratory failure CKD (chronic kidney disease) stage 3, GFR 30-59 ml/min Cognitive changes Diabetes mellitus type 2, uncontrolled DM (diabetes mellitus) Elevated lactic acid level Hearing loss Hypertension Hypotension Subtherapeutic international normalized ratio (INR) Systolic CHF, acute on chronic Ulceration Surgical History H/O hemicolectomy Hx of CABG Family History Mother Hypertension Social History Smoking Status: Never smoker Tobacco Type: Smokeless Tobacco (Dip or Chew) Second Hand Exposure: No; Hx Alcohol Use: Yes Alcohol type: hard liquor Hx Substance Use: No Preferred Language: Hebrew Communication Ability: Effective Handbag Stitcher Required: No Beliefs That Will Affect Care: None marital status: Current Living Situation: Spouse Feels Safe at Home: Yes Assistive Devices: Walker Physical Exam Constitutional: + ill appearing, + disheveled and cooperative Respiratory: normal respiratory effort, lungs clear to auscultation Auscultation: + diminished lung sounds and + rhonchi Cardiovascular: RRR, no murmur, no edema Heart Sounds: normal S1, normal S2 and + murmur Gastrointestinal (Abdomen): normal bowel sounds, soft, nontender, no hepatosplenomegaly Skin: no rashes, warm and dry Psychiatric: A+Ox3, euthymic affect Results & Data ([facility]) Vital Signs (Past 12 Hours) Vital Signs Temp Pulse Resp BP Pulse Ox 07/01/20 07:07 36.5 C 74 18 138/76 96 PG Care Time/CCT Total # of Minutes Spent Total Time Spent with Patient: Total time spent is greater than 50% in coordination of care (as documented) at patient's floor/unit and/or counseling patient: 100 Coding Level of Care Code 26258 Inpt Consult Level 4 Diagnoses Palliative care encounter Z51.5 Chronic kidney disease, stage III (moderate) N18.30 Systolic CHF, acute on chronic I50.23 Chronic hypoxemic respiratory failure J96.11 Time Spent (min) 100 Time Spent Midlevel Total time spent 100 minutes with > 50% of that time spent assessing the patient, discussing goals of care with the patient, and daughter, completing a POLST form and collaborating with the IDT.
[2020-07-01] MEDS: WARFARIN SOD 7.5 MG TAB PO SCH (16:07)
[2020-07-01] MEDS: INSULIN GLARGINE SOLOSTAR 100 UNITS/ML 3 ML PEN SQ SCH (18:11)
[2020-07-01] MEDS: NITROGLYCERIN 0.2 MG/HR PATCH TD SCH (21:22)
[2020-07-01] MEDS: ATORVASTATIN 40 MG TAB PO SCH (21:23)
[2020-07-02 08:07] LABS: Hematocrit (blood only) 38.6 % (42-52); Hemoglobin 12.7 g/dL (14.0-18.0); Mean Corpuscular Hemoglobin 30.8 pg (25-34); Mean Corpuscular Hgb Conc 32.9 g/dL (32-36); Mean Corpuscular Volume 93.7 fL (80-100); Mean Platelet Volume 10.2 fL (7.4-10.4); Platelet Count 171 K/uL (130-400); RDW Coefficient of Variation 16.8 % (11.5-14.5); RDW Standard Deviation 57.8 fL (36.4-46.3); Red Blood Count 4.12 M/uL (4.7-6.1); White Blood Count 6.64 K/uL (4.8-10.8)
[2020-07-02 08:41] LABS: INR 2.2 (0.9-1.1); Prothrombin Time 22.4 Seconds (9.0-12.0)
[2020-07-02 08:42] LABS: Albumin Level 2.5 gm/dl (3.4-5.0); BUN Creatinine Ratio 21.8 (10-20); Calcium 8.7 mg/dl (8.5-10.1); Creatinine Clr Calc Pharmacy 37.1 ml/min; Est GFR (Non-African American) 30.2; Potassium 3.6 mmol/L (3.5-5.1)
[2020-07-02 08:44] LABS: Albumin Globulin Ratio 0.9 (0.9-2); Bilirubin,Total 0.7 mg/dl (0.2-1); Globulin 2.9 gm/dl (2.5-4.0); Total Protein 5.4 gm/dl (6.4-8.2)
--- NOTE | 2020-07-02 09:07 | Hospitalist Progress Note ---
Date of Service July 02, 2020 Assessment & Plan (1) Acute respiratory distress: 80 y/o M with hx of COPD (1L home O2), CHF (EF 40-45%), CAD (CABG 2010), , AF on warfarin, DM, CKD3 who presented for respiratory distress 2/2 acute on chronic systolic HF. Continuing to improve and is not tolerating room air for ~2 days. Waiting on dispo to [facility] on 07/03/20. acute respiratory failure 2/2 pulm edema and pleural effusions, in setting of Acute on chronic systolic CHF exacerbation with severe and COPD - BNP on admission: - 02/2020 Echo: EF 40-45% - COPD, on 1L home - CXR/CT on admission: pulmonary edema, bilateral pleural effusions, loculated effusion on R. Loculation is new/worsened and L pleural effusion is new compared to 02/2020 CT - most recent CXR today post diuresis shows persistent bilateral pleural effusions with basilar atelectasis/consolidation - pulm consulted and signed off. diurese. no thoracentesis given patient preference and questionable benefit given loculation - stopped prednisone because less likely to be COPD exacerbation and no longer ARDS critically ill picture - nephro: rec'd switch furosemide to bumetanide 1mg PO QD for better bioavailability - continue duoneb PRN. f/u with pulmonology on discharge for PFT and initiating COPD maintenance medications - I/O: 1.4L in 2.3L out. cumulative 3.7L in 12.5L out. VICTORIANO on CKD3 (baseline Cr 1.6-1.8) w/ anemia (baseline Hb 12s-13s) - 2/2/ overdiuresis and severe . Cr 2.01, stable last few days AF on warfarin: continue metoprolol succinate 50 PO daily and warfarin DM2: hold home lantus. SSI CAD: continue home statin, asa, metoprolol, imdur mild dementia: continue home memantine depression: continue home sertraline GERD: continue home famotidine QD. Maalox and Zofran PRN stage 3 pressure ulcer @ L posterior lower leg - continue wound care and topical gentamicin FEN/GI: DM diet DVT ppx: warfarin full code dispo: med/surg, dispo to [facility] 07/03/20 Admission and Anticipated Discharge Date Admission Date: June 26, 2020 Supervising Physician Co-Signing Physician Notes Resident Physician Supervision Note: I independently interviewed and examined the patient and verified the lema history and physical, reviewed labs and image studies, discussed the case with the resident Dr. Byrd and agree with the findings and care plan. Subjective Eating comfortably. Denies all complaints. Continues to tolerate room air, 2nd day. Review of Systems Review of Systems: Constitutional: Denies fever, chills Cardiovascular: Denies chest pain Respiratory: Denies shortness of breath Gastrointestinal: Denies abdominal pain, nausea, vomiting, constipation, diarrhea Genitourinary: Denies urinary symptoms including dysuria Neurological: Denies headache Physical Exam Physical Exam: General: A&Ox3. NAD. Cooperative. HEENT: Atraumatic, normocephalic. EOMI Pulm: R side quieter breath sounds. Mild L inspiratory rhonchi mild. Cardiac: RRR, no rubs or gallops. Abdominal: Nontender, nondistended, soft. Musculoskeletal: No LE edema. Results & Data Results & Data ([facility]) Vital Signs (Past 12 Hours) Vital Signs Temp Pulse Resp BP Pulse Ox 07/02/20 07:21 37.0 C 64 14 121/56 L 93 07/01/20 23:18 36.4 C L 61 18 117/61 94 Resident Activity Tracking Resident Involvement: Resident Care Provided Care Provided: Adult [facility] Medicine
[2020-07-02] MEDS: FAMOTIDINE 40 MG TABLET PO SCH (09:22)
[2020-07-02] MEDS: MEMANTINE HCL 10 MG TAB PO SCH ×2 (09:22→21:38)
[2020-07-02] MEDS: SERTRALINE HCL 100 MG TABLET PO SCH (09:22)
[2020-07-02] MEDS: ISOSORBIDE MONO EXTENDED REL 60 MG TABCR PO SCH (09:22)
[2020-07-02] MEDS: ASPIRIN 81 MG ECTAB PO SCH (09:22)
[2020-07-02] MEDS: TAMSULOSIN HCL 0.4 MG CAP PO SCH (09:22)
[2020-07-02] MEDS: METOPROLOL SUCC 50MG EXT REL TAB PO SCH (09:23)
[2020-07-02] MEDS: GENTAMICIN SULFATE 0.1% CR 15 GM TUBE EXT SCH (09:23)
[2020-07-02] MEDS: CHOLECALCIFEROL 1,000 UNITS 25 MCG TAB PO SCH (09:23)
[2020-07-02] MEDS: BUMETANIDE 1 MG TAB PO SCH (09:23)
[2020-07-02] MEDS: THIAMINE HCL 100 MG TAB PO SCH ×2 (09:23→21:37)
[2020-07-02] MEDS: INSULIN ASPART 100 UNITS/ML 3 ML PEN SC SCH ×4 (09:24→21:30)
--- NOTE | 2020-07-02 10:58 | Nephrology Progress Note ---
Date of Service July 02, 2020 Assessment & Plan (1) VICTORIANO (acute kidney injury): * VICTORIANO likely due to intravascular volume depletion related to diuretic therapy in the setting of severe * Patient is nonoliguric. Unfortunately he is developing metabolic alkalosis and worsening renal function in response to diuretic therapy * Urine sediment is acellular, abdominal CT negative for obstruction * Electrolyte balance is acceptable at this time. 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 He appears to clinically have severe . * Patient likely is not a candidate for TAVR due to dementia and poor functional status * Continue bumetanide 0.5 mg po daily * Primary service considering SNF placement w/ transition to hospice if con dition worsens (4) COPD (chronic obstructive pulmonary disease): (5) Dementia: Admission and Anticipated Discharge Date Admission Date: June 26, 2020 Subjective Mr. Townsend was seen & examined in his hospital room this morning. He reported that his breathing is comfortable and he wants to go home Review of Systems Review of Systems: Unobtainable due to mental health condition Physical Exam Constitutional: not in distress Eyes: PERRL, conjunctivae normal, anicteric sclerae ENMT: external ear and nose normal, oropharynx normal Neck: trachea midline, no thyromegaly Respiratory: normal respiratory effort Auscultation: + diminished lung sounds (RLL) Cardiovascular: Rate/Rhythm: regular rate and regular rhythm Heart Sounds: no cardiac rub Extremities: no edema Gastrointestinal (Abdomen): normal bowel sounds, soft, nontender, no hepatosplenomegaly Skin: no rashes, warm and dry Results & Data ([facility]) Vital Signs (Past 12 Hours) Vital Signs Temp Pulse Resp BP Pulse Ox 07/02/20 07:21 37.0 C 64 14 121/56 L 93 07/01/20 23:18 36.4 C L 61 18 117/61 94 Laboratory Results Laboratory Tests 07/02/20 07:48 WBC 6.64 Hgb 12.7 L Hct 38.6 L Plt Count 171 Laboratory Tests 07/02/20 07:48 Sodium 140 Potassium 3.6 Chloride 104 Carbon Dioxide 33 H BUN 44 H Creatinine 2.01 H Glucose 90 Calcium 8.7 Albumin 2.5 L PG Care Time/CCT Total # of Minutes Spent Total Time Spent with Patient: Total time spent is greater than 50% in coordination of care (as documented) at patient's floor/unit and/or counseling patient: Coding Level of Care Code 84100 Subseq Hosp Care Lvl 3 Diagnoses VICTORIANO (acute kidney injury) N17.9 Chronic kidney disease, stage III (moderate) N18.30 Severe aortic stenosis I35.0 COPD (chronic obstructive pulmonary disease) J44.9 COPD type: unspecified COPD Dementia F03.90 (1) COPD (chronic obstructive pulmonary disease) COPD type: unspecified COPD Qualified Code(s): J44.9 - Chronic obstructive pulmonary disease, unspecified
[2020-07-02] MEDS: WARFARIN SOD 10 MG TAB PO SCH (17:32)
[2020-07-02] MEDS: INSULIN GLARGINE SOLOSTAR 100 UNITS/ML 3 ML PEN SQ SCH (17:47)
[2020-07-02] MEDS: ATORVASTATIN 40 MG TAB PO SCH (21:37)
[2020-07-02] MEDS: NITROGLYCERIN 0.2 MG/HR PATCH TD SCH (21:38)
[2020-07-03 08:08] LABS: Hematocrit (blood only) 36.9 % (42-52); Mean Corpuscular Hemoglobin 30.7 pg (25-34); Mean Corpuscular Hgb Conc 32.5 g/dL (32-36); Mean Corpuscular Volume 94.4 fL (80-100); Platelet Count 166 K/uL (130-400); RDW Standard Deviation 58.7 fL (36.4-46.3); Red Blood Count 3.91 M/uL (4.7-6.1); White Blood Count 6.07 K/uL (4.8-10.8)
[2020-07-03 08:16] LABS: INR 2.1 (0.9-1.1); Prothrombin Time 20.9 Seconds (9.0-12.0)
[2020-07-03 08:42] LABS: BUN Creatinine Ratio 21.7 (10-20); Calcium 8.1 mg/dl (8.5-10.1); Creatinine Clr Calc Pharmacy 39.2 ml/min; Est GFR (African American) 37.5; Est GFR (Non-African American) 32.3; Potassium 3.7 mmol/L (3.5-5.1)
[2020-07-03] MEDS: INSULIN ASPART 100 UNITS/ML 3 ML PEN SC SCH ×4 (09:46→21:50)
--- NOTE | 2020-07-03 10:31 | Hospitalist Progress Note ---
Date of Service July 03, 2020 Assessment & Plan (1) Acute respiratory distress: 80 y/o M with hx of COPD (1L home O2), CHF (EF 40-45%), CAD (CABG 2010), , AF on warfarin, DM, CKD3 who presented for respiratory distress 2/2 acute on chronic systolic HF. Continuing to improve and is tolerating room air for ~2 days. Fluid status appears a bit better today, lungs clearer and no LE edema. Waiting on dispo to [facility] on 07/04/20. acute respiratory failure 2/2 pulm edema and pleural effusions, in setting of Acute on chronic systolic CHF exacerbation with severe and COPD - BNP on admission: - 02/2020 Echo: EF 40-45% - COPD, on 1L home - CXR/CT on admission: pulmonary edema, bilateral pleural effusions, loculated effusion on R. Loculation is new/worsened and L pleural effusion is new compared to 02/2020 CT - pulm consulted and signed off. diurese. no thoracentesis given patient preference and questionable benefit given loculation - stopped prednisone because less likely to be COPD exacerbation and no longer ARDS critically ill picture - continue duoneb PRN. f/u with pulmonology on discharge for PFT and initiating COPD maintenance medications - nephro: rec'd switch furosemide to bumetanide 1mg PO QD for better bioavailability - 07/03/20 AM 24 hr I/O: 600mL in 825mL out. cumulative 4.7L in 13.4L out. VICTORIANO on CKD3 (baseline Cr 1.6-1.8) w/ anemia (baseline Hb 12s-13s) - 2/2/ overdiuresis and severe . creatinine improving AF on warfarin: continue metoprolol succinate 50 PO daily and warfarin DM2: hold home lantus. SSI CAD: continue home statin, asa, metoprolol, imdur mild dementia: continue home memantine depression: continue home sertraline GERD: continue home famotidine QD. Maalox and Zofran PRN stage 3 pressure ulcer @ L posterior lower leg - continue wound care and topical gentamicin FEN/GI: carb consistent or DM2 DVT ppx: warfarin (INR 2.1 07/03/20) DNR/DNI (as of 07/01/20) dispo: med/surg, dispo to [facility] 07/04/20 Admission and Anticipated Discharge Date Admission Date: June 26, 2020 Supervising Physician Co-Signing Physician Notes Resident Physician Supervision Note: I independently interviewed and examined the patient and verified the lema history and physical, reviewed labs and image studies, discussed the case with the resident Dr. Byrd and agree with the findings and care plan. Subjective Mr. Townsend was resting comfortably in his bed this morning, on room air. No pain or shortness of breath. Review of Systems Review of Systems: Constitutional: Denies fever, chills Cardiovascular: Denies chest pain Respiratory: Denies shortness of breath, difficulty breathing Gastrointestinal: Denies abdominal pain, nausea, vomiting, constipation, diarrhea Neurological: Denies headache Physical Exam Physical Exam: General: NAD. Cooperative. HEENT: Atraumatic, normocephalic. EOMI Pulm: Quieter to auscultation on R lung cervantes. No crackles on lung exam today. No respiratory distress. Cardiac: RRR, -mrg. Radial pulses intact and symmetrical. No pedal edema. Abdominal: Nontender, nondistended, soft. Results & Data Results & Data ([facility]) Vital Signs (Past 12 Hours) Vital Signs Temp Pulse Pulse Resp BP Pulse Ox 07/03/20 07:30 36.9 C 60 18 112/72 92 07/02/20 23:36 36.9 C 65 20 111/57 L 93 Resident Activity Tracking Resident Involvement: Resident Care Provided Care Provided: Adult Hospital Medicine
--- NOTE | 2020-07-03 10:44 | Nephrology Progress Note ---
Date of Service July 03, 2020 Assessment & Plan (1) VICTORIANO (acute kidney injury): * VICTORIANO likely due to intravascular volume depletion related to diuretic therapy in the setting of severe * Patient is nonoliguric * Urine sediment is acellular, abdominal CT negative for obstruction * Electrolyte balance is acceptable at this time. No acute indication for DISCHARGE RN (2) Chronic kidney disease, stage III (moderate): * Baseline Cr 1.6 - 1.8 (3) Severe aortic stenosis: * Although echocardiogram shows moderate to severe , patient has CHF, moderate R pleural effusion, lethargy worsening renal function and metabolic alkalosis in response to diuretic therapy. He appears to clinically have severe . * Patient likely is not a candidate for TAVR due to dementia and poor functional status * Continue bumetanide 0.5 mg po daily * Primary service considering SNF placement w/ transition to hospice if condition worsens * Will sign off. Please call if further Nephrology assistance is needed (4) COPD (chronic obstructive pulmonary disease): (5) Dementia: Admission and Anticipated Discharge Date Admission Date: June 26, 2020 Subjective Agitated this am. States repeatedly "I want to go home!". Knocked breakfast tray to the floor Review of Systems Review of Systems: Unobtainable due to cognitive status Physical Exam Constitutional: agitated Eyes: PERRL, conjunctivae normal, anicteric sclerae ENMT: external ear and nose normal, oropharynx normal Neck: trachea midline, no thyromegaly Respiratory: normal respiratory effort Auscultation: + diminished lung sounds (RLL) Cardiovascular: Rate/Rhythm: regular rate and regular rhythm Heart Sounds: no cardiac rub Extremities: no edema Gastrointestinal (Abdomen): normal bowel sounds, soft, nontender, no hepatosplenomegaly Skin: no rashes, warm and dry Results & Data ([facility]) Vital Signs (Past 12 Hours) Vital Signs Temp Pulse Pulse Resp BP Pulse Ox 07/03/20 07:30 36.9 C 60 18 112/72 92 07/02/20 23:36 36.9 C 65 20 111/57 L 93 Laboratory Results Laboratory Tests 07/03/20 07:28 WBC 6.07 Hgb 12.0 L Hct 36.9 L Plt Count 166 Laboratory Tests 07/03/20 07:28 Sodium 142 Potassium 3.7 Chloride 107 Carbon Dioxide 32 BUN 41 H Creatinine 1.90 H Glucose 132 H PG Care Time/CCT Total # of Minutes Spent Total Time Spent with Patient: Total time spent is greater than 50% in coordination of care (as documented) at patient's floor/unit and/or counseling patient: Coding Level of Care Code 60299 Subseq Hosp Care Lvl 3 Diagnoses VICTORIANO (acute kidney injury) N17.9 Chronic kidney disease, stage III (moderate) N18.30 Severe aortic stenosis I35.0 COPD (chronic obstructive pulmonary disease) J44.9 COPD type: unspecified COPD Dementia F03.90 (1) COPD (chronic obstructive pulmonary disease) COPD type: unspecified COPD Qualified Code(s): J44.9 - Chronic obstructive pulmonary disease, unspecified
[2020-07-03] MEDS: ISOSORBIDE MONO EXTENDED REL 60 MG TABCR PO SCH (10:55)
[2020-07-03] MEDS: FAMOTIDINE 40 MG TABLET PO SCH (10:55)
[2020-07-03] MEDS: BUMETANIDE 1 MG TAB PO SCH (10:55)
[2020-07-03] MEDS: TAMSULOSIN HCL 0.4 MG CAP PO SCH (10:56)
[2020-07-03] MEDS: THIAMINE HCL 100 MG TAB PO SCH ×2 (10:58→20:49)
[2020-07-03] MEDS: CHOLECALCIFEROL 1,000 UNITS 25 MCG TAB PO SCH (10:58)
[2020-07-03] MEDS: SERTRALINE HCL 100 MG TABLET PO SCH (10:58)
[2020-07-03] MEDS: METOPROLOL SUCC 50MG EXT REL TAB PO SCH (10:58)
[2020-07-03] MEDS: GENTAMICIN SULFATE 0.1% CR 15 GM TUBE EXT SCH (10:59)
[2020-07-03] MEDS: MEMANTINE HCL 10 MG TAB PO SCH ×2 (10:59→20:49)
[2020-07-03] MEDS: ASPIRIN 81 MG ECTAB PO SCH (10:59)
[2020-07-03] MEDS ORDERED: INFLUENZA VIRUS QUAD VACCINE 0.5 ML SYR IM ONE (11:42)
[2020-07-03] MEDS ORDERED: INFLUENZA ADMINISTRATION CHARGE ONE (11:42)
[2020-07-03] MEDS: WARFARIN SOD 7.5 MG TAB PO SCH (16:55)
[2020-07-03] MEDS: INSULIN GLARGINE SOLOSTAR 100 UNITS/ML 3 ML PEN SQ SCH (18:46)
[2020-07-03] MEDS: NITROGLYCERIN 0.2 MG/HR PATCH TD SCH (20:48)
[2020-07-03] MEDS: ATORVASTATIN 40 MG TAB PO SCH (20:49)
[2020-07-04] MEDS ORDERED: HALOPERIDOL LACTATE 5 MG/ML 1 ML VIAL IM STA ×2 (04:59→05:00)
[2020-07-04] MEDS ORDERED: LORazepam 2 MG/4 ML VIAL IV STA (04:59)
[2020-07-04] MEDS ORDERED: LORazepam 2 MG/4 ML VIAL IV ONE (05:05)
[2020-07-04 05:31] LABS: Hematocrit (blood only) 41.1 % (42-52); Hemoglobin 13.2 g/dL (14.0-18.0); Mean Corpuscular Hemoglobin 30.7 pg (25-34); Mean Corpuscular Hgb Conc 32.1 g/dL (32-36); Mean Corpuscular Volume 95.6 fL (80-100); Mean Platelet Volume 10.4 fL (7.4-10.4); Platelet Count 184 K/uL (130-400); RDW Coefficient of Variation 16.9 % (11.5-14.5); RDW Standard Deviation 59.9 fL (36.4-46.3); White Blood Count 5.97 K/uL (4.8-10.8)
[2020-07-04 06:17] LABS: BUN Creatinine Ratio 20.3 (10-20); Calcium 8.4 mg/dl (8.5-10.1); Creatinine Clr Calc Pharmacy 40.5 ml/min; Est GFR (Non-African American) 33.6
[2020-07-04] MEDS: ISOSORBIDE MONO EXTENDED REL 60 MG TABCR PO SCH (08:29)
[2020-07-04] MEDS: METOPROLOL SUCC 50MG EXT REL TAB PO SCH (08:29)
[2020-07-04] MEDS: ASPIRIN 81 MG ECTAB PO SCH (08:30)
[2020-07-04] MEDS: SERTRALINE HCL 100 MG TABLET PO SCH (08:30)
[2020-07-04] MEDS: MEMANTINE HCL 10 MG TAB PO SCH (08:30)
[2020-07-04] MEDS: BUMETANIDE 1 MG TAB PO SCH (08:30)
[2020-07-04] MEDS: TAMSULOSIN HCL 0.4 MG CAP PO SCH (08:30)
[2020-07-04] MEDS: CHOLECALCIFEROL 1,000 UNITS 25 MCG TAB PO SCH (08:31)
[2020-07-04] MEDS: FAMOTIDINE 40 MG TABLET PO SCH (08:31)
[2020-07-04] MEDS: GENTAMICIN SULFATE 0.1% CR 15 GM TUBE EXT SCH (08:32)
[2020-07-04] MEDS: THIAMINE HCL 100 MG TAB PO SCH (08:35)
[2020-07-04] MEDS: INSULIN ASPART 100 UNITS/ML 3 ML PEN SC SCH ×2 (08:57→13:07)
--- NOTE | 2020-07-04 09:59 | Hospitalist Progress Note ---
Date of Service July 04, 2020 Assessment & Plan (1) Acute respiratory distress: 80 y/o M with hx of COPD (1L home O2), CHF (EF 40-45%), CAD (CABG 2010), , AF on warfarin, DM, CKD3 who presented for respiratory distress 2/2 acute on chronic systolic HF. Continuing to improve and is tolerating room air for ~2 days. Fluid status appears a bit better today, lungs clearer and no LE edema. Waiting on dispo to [facility] on 07/04/20. h/h stable. cr improving. 1.84, 2nd day below 2.0. ca 84. poc 228 acute respiratory failure 2/2 pulm edema and pleural effusions, in setting of Acute on chronic systolic CHF exacerbation with severe and COPD - BNP on admission: - 02/2020 Echo: EF 40-45% - COPD, on 1L home - CXR/CT on admission: pulmonary edema, bilateral pleural effusions, loculated effusion on R. Loculation is new/worsened and L pleural effusion is new compared to 02/2020 CT - pulm consulted and signed off. diurese. no thoracentesis given patient preference and questionable benefit given loculation - stopped prednisone because less likely to be COPD exacerbation and no longer ARDS critically ill picture - continue duoneb PRN. f/u with pulmonology on discharge for PFT and initiating COPD maintenance medications - nephro: rec'd switch furosemide to bumetanide 1mg PO QD for better bioavailability - 07/03/20 AM 24 hr I/O: 600mL in 825mL out. cumulative 4.7L in 13.4L out. VICTORIANO on CKD3 (baseline Cr 1.6-1.8) w/ anemia (baseline Hb 12s-13s) - 2/2/ overdiuresis and severe . creatinine improving AF on warfarin: continue metoprolol succinate 50 PO daily and warfarin DM2: hold home lantus. SSI CAD: continue home statin, asa, metoprolol, imdur mild dementia: continue home memantine depression: continue home sertraline GERD: continue home famotidine QD. Maalox and Zofran PRN stage 3 pressure ulcer @ L posterior lower leg - continue wound care and topical gentamicin FEN/GI: carb consistent or DM2 DVT ppx: warfarin (INR 2.1 07/03/20) DNR/DNI (as of 07/01/20) dispo: med/surg, dispo to [facility] [place] 07/04/20 Admission and Anticipated Discharge Date Admission Date: June 26, 2020 Subjective resting comfortably. no complaints. all ros neg heart has faint systolic murmur aortic region. lungs clear, but quieter on r. abd soft nt. no le edema. 150-165/78-80 Results & Data Results & Data ([facility]) Vital Signs (Past 12 Hours) Vital Signs Temp Pulse Pulse Resp BP Pulse Ox 07/04/20 09:01 36.5 C 81 18 165/78 H 93 07/04/20 00:04 36.8 C 53 L 12 150/80 H 95
--- NOTE | 2020-07-04 16:53 | Discharge Summary ---
Date of Service July 04, 2020 Admission HPI Per Admitting Provider Jose Townsend is an 80 year old man with a past medical history significant for CHF (Ischemic cardiomyopathy Last LVEF of 40-45%), Aortic stenosis, COPD, A fib on anticoagulation, peripheral arterial disease, left lower extremity pressure ulcer, DMII, CKD III, Anxiety, Depression, Neurogenic bladder,BPH, GERD, sleep apnea, peripheral neuropathy and dementia who is here for shortness of breath. Patient was just discharged from [facility] for post obstructive UTI. SInce that time patient has had mildly progressive shortness of breath. He actually qualified for home O2 and has been using 2 L O2 for last several days but over last 24 has begun to sharply decline in his respiratory status. only thing that seems to make him feel better at home is to blow a fan in his face. At time of my interview patient is quite agitated and upset and won't answer questions most of history obtained from . Declines chest pain, abdominal pain, fevers, chills, sweats, nausea, vomiting, diarrhea, has been incontinent of urine and requires straight cath at home. He has not been eating much food but what he has has been salty food including a large amount of chili recently. He tells me he would like to be DNR/DNI but tells my attending that he was just frustrated and would actually like to be full code. Admission Exam Per Admitting Provider Constitutional: WD/WN, vitals as above Eyes: PERRL, conjunctivae normal, anicteric sclerae ENMT: external ear and nose normal, oropharynx normal Respiratory: + respiratory distress, + labored breathing and + uses accessory muscles Cardiovascular: Rate/Rhythm: regular rate; + abnormal rhythm Heart Sounds: + murmur; no click and no gallop Extremities: + edema (bilateral 3+ edema) Gastrointestinal (Abdomen): normal bowel sounds, soft, nontender, no hepatosplenomegaly Skin: no rashes, warm and dry Principal Diagnosis acute respiratory failure Discharge Data Allergies Allergy/AdvReac Type Severity Reaction Status Date / Time codeine AdvReac Intermediate EMESIS Verified 06/26/20 20:36 Iodinated Contrast Media AdvReac Mild NAUSEA Verified 06/26/20 20:36 Consultations 06/26/20 19:18 ED Decision to Admit Stat 06/30/20 10:17 Consult Pulmonology Routine 07/01/20 12:28 Consult Palliative Care Routine Ordered Studies 06/26/20 23:33 CT chest wo con Stat Hospital Course (1) Acute respiratory distress: Mr. Townsend is a 80 y/o M with hx of COPD (1L home O2), CHF (EF 40-45%), CAD (CABG 2010), , AF on warfarin, DM, CKD3 who presented for respiratory distress 2/2 acute on chronic systolic HF who was admitted to [facility] on 06/26/20 for acute respiratory failure. Acute respiratory failure 2/2 pulm edema and pleural effusions, in setting of acute on chronic systolic CHF exacerbation with severe and COPD - BNP on admission: . 02/2020 Echo: EF 40-45% - COPD, on 1L home (per patient). During this admission, initially needed 2L NC, but was tapered off to room air and has been saturating at 93-97% w/ a min of 92% x1. - CXR/CT on admission: pulmonary edema, bilateral pleural effusions, loculated effusion on R. Loculation is new/worsened and L pleural effusion is new compared to 02/2020 CT - more recent CXR post diuresis shows persistent bilateral pleural effusions with basilar atelectasis/consolidation - pulm consulted and recommended continued diuresis and not to perform thoracentesis given that he was on warfarin, patient preference, and questionable benefit on the loculation - IV methylpred->PO pred->stopped prednisone because less likely to be COPD exacerbation and respiratory status improved - nephro: recommended switch furosemide to bumetanide 0.5 mg PO daily for better bioavailability - continue duoneb PRN. f/u with pulmonology (via PCP referral) as an outpatient for PFT and initiating COPD maintenance medications VICTORIANO on CKD3 (baseline Cr 1.6-1.8) w/ anemia (baseline Hb 12s-13s) - 2/2 overdiuresis and severe . Cr downtrended from 2.24->1.84 over a week, so is almost at baseline (1.6-1.8). Avoid nephrotoxic agents. Obstructive uropathy and neurogenic bladder Temporarily had catheter placed at patient's request. No longer has gonzalez, now using straight caths. AF on warfarin: continue metoprolol succinate 50 PO daily and warfarin (MWF 10mg, other days 7.5mg). Check INRs per protocol. DM2: used SSI during admission. Restart home meds CAD: continuee home statin, asa, metoprolol, imdur mild dementia: continue home memantine. mild agitation during night before discharge. did not require sedation medicine. calmed down with food. depression: continue home sertraline GERD: continue home famotidine QD. Maalox and Zofran PRN stage 3 pressure ulcer @ L posterior lower leg: continue wound care and topical gentamicin Goals of care discussion w/ palliative care (from their 07/01/20 consult note) -Family all in agreement for SNF with gentle rehab and see how things go with an eventual transition to Hospice. -Hospice diagnosis could include: 1. CHF 2. COPD 3. Senile Degeneration of the Brain -completed a POLST form indicating DNR/DNI, CUSTOMS VERIFIER (No future hospitalizations once discharged), trial abx, and no artificial nutrition/hydration. This was directly discussed with the patient who deferred to his to sign the form. A copy was placed on the chart and she has the original. -He does use medical marijuana and would like to continue at a SNF if policy permits DNR/DNI Please set up an appointment with Dr. Jhonathan Pennington (PCP) and pulmonology in 1 week. Please check warfarin levels in 3 days. Total Time Total Time Spent Total Time Spent (In Minutes): Please see attending documentation. Discharge Plan Discharge Items Patient Disposition: Transfer Care Home Fac Reason For Visit: HYPOXEMIC RESPIRATORY FAILURE Discharge Diagnosis: acute respiratory failure Condition on Discharge: Good Activity: Per Instructions section Non-emergency contact: Primary Care Provider Call non-emergency contact if: you have any medication questions, your pain is not controlled and you have a fever Follow-up/Referrals: Jhonathan Pennington, DO [Primary Care Provider] - Diet: Carb Consistent or DM2 and Low Sodium (2gm) Addtl Attending Provider Instructions: Mr. Townsend is a 80 y/o M with hx of COPD (1L home O2), CHF (EF 40-45%), CAD (CABG 2010), , AF on warfarin, DM, CKD3 who presented for respiratory distress 2/2 acute on chronic systolic HF who was admitted to [facility] on 06/26/20 for acute respiratory failure. acute respiratory failure 2/2 pulm edema and pleural effusions, in setting of acute on chronic systolic CHF exacerbation with severe and COPD - BNP on admission: . 02/2020 Echo: EF 40-45% - COPD, on 1L home (per patient). During this admission, initially needed 2L NC, but was tapered off to room air and has been saturating at 93-97% w/ a min of 92% x1. - CXR/CT on admission: pulmonary edema, bilateral pleural effusions, loculated effusion on R. Loculation is new/worsened and L pleural effusion is new compared to 02/2020 CT - more recent CXR post diuresis shows persistent bilateral pleural effusions with basilar atelectasis/consolidation - pulm consulted and recommended continued diuresis and not to perform thoracentesis given that he was on warfarin, patient preference, and questionable benefit on the loculation - IV methylpred->PO pred->stopped prednisone because less likely to be COPD exacerbation and respiratory status improved - nephro: recommended switch furosemide to bumetanide 0.5 mg PO daily for better bioavailability - continue duoneb PRN. f/u with pulmonology (via PCP referral) as an outpatient for PFT and initiating COPD maintenance medications VICTORIANO on CKD3 (baseline Cr 1.6-1.8) w/ anemia (baseline Hb 12s-13s) - 2/2 overdiuresis and severe . Cr downtrended from 2.24->1.84 over a week, so is almost at baseline (1.6-1.8). Avoid nephrotoxic agents. Obstructive uropathy and neurogenic bladder Temporarily had catheter placed at patient's request. No longer has gonzalez, now using straight caths. AF on warfarin: continue metoprolol succinate 50 PO daily and warfarin (MWF 10mg, other days 7.5mg). Check INRs per protocol. DM2: used SSI during admission. Restart home meds CAD: continuee home statin, asa, metoprolol, imdur mild dementia: continue home memantine. mild agitation during night before discharge. did not require sedation medicine. calmed down with food. depression: continue home sertraline GERD: continue home famotidine QD. Maalox and Zofran PRN stage 3 pressure ulcer @ L posterior lower leg: continue wound care and topical gentamicin Goals of care discussion w/ palliative care (from their 07/01/20 consult note) -Family all in agreement for SNF with gentle rehab and see how things go with an eventual transition to Hospice. -Hospice diagnosis could include: 1. CHF 2. COPD 3. Senile Degeneration of the Brain -completed a POLST form indicating DNR/DNI, CUSTOMS VERIFIER (No future hospitalizations once discharged), trial abx, and no artificial nutrition/hydration. This was directly discussed with the patient who defered to his to sign the form. A copy was placed on the chart and she has the original. -He does use medical marijuana and would like to continue at a SNF if policy permits DNR/DNI Please set up an appointment with Dr. Jhonathan Pennington (PCP) and pulmonology in 1 week. Please check warfarin levels in 3 days. Pending Studies at Discharge: No Stand-Alone Forms: My [facility] [place] Skilled Items Patient informed of condition?: Yes DNR: Yes Discharge Level of Care: Skilled Communicable Disease: No Discharge Prognosis: Stable Lines: None Urinary Catheter: No Medications and DC Order Prescriptions: Continued famotidine [Pepcid] 40 mg tablet 40 mg PO DAILY RF: 0 gentamicin 0.1 % ointment 1 applic topical DAILY 14 Days Qty: 30 RF: 2 (DME) OneTouch Ultra Blue Test Strip strip See Dose Instructions .ROUTE .MEDSUPPLY Qty: 100 RF: 0 cholecalciferol (vitamin D3) [Vitamin D3] 5,000 unit tablet 5,000 unit PO DAILY Qty: 30 RF: 0 thiamine HCl (vitamin B1) 100 mg tablet 100 mg PO BID RF: 0 atorvastatin 40 mg tablet 40 mg PO HS Qty: 90 RF: 3 memantine 10 mg tablet 10 mg PO BID Qty: 180 RF: 1 warfarin 5 mg tablet See Rx Instructions .ROUTE .COMPLEX RF: 0 isosorbide mononitrate 60 mg tablet extended release 24 hr 60 mg PO DAILY Qty: 30 RF: 5 tramadol 50 mg tablet 50 mg PO Q6H PRN (Reason: pain) Qty: 30 RF: 0 tamsulosin 0.4 mg capsule 0.8 mg PO DAILY Qty: 180 RF: 1 nitroglycerin 0.2 mg/hr patch 24 hour 1 patch TRANSDERMAL QPM Qty: 30 RF: 5 nitroglycerin 400 mcg/spray spray,non-aerosol 1 spray Sublingual Q5M PRN (Reason: Chest Pain) Qty: 4.9 RF: 2 ipratropium-albuterol 0.5 mg-3 mg(2.5 mg base)/3 mL solution for nebulization 3 ml INHALATION Q4H PRN (Reason: Shortness Of Breath) Qty: 180 RF: 5 (DME) Portable Oxygen Misc See Rx Instructions .ROUTE .MEDSUPPLY Qty: 1 RF: 0 (DME) Oxygen Home Liters Per Minute See Rx Instructions .ROUTE .MEDSUPPLY Qty: 1 RF: 0 sertraline 100 mg tablet 100 mg PO DAILY Qty: 90 RF: 1 Combivent Respimat 20-100 mcg/actuation mist 1 puff INHALATION QID PRN (Reason: shortness of breath or wheezing) Qty: 4 RF: 5 (DME) lancets [OneTouch UltraSoft Lancets] misc See Dose Instructions .ROUTE .MEDSUPPLY Qty: 100 RF: 3 (DME) pen needle, diabetic [BD Ultra-Fine Micro Pen Needle] 32 gauge x 1/4" needle See Dose Instructions .ROUTE .MEDSUPPLY Qty: 100 RF: 5 furosemide 40 mg tablet 40 mg PO DAILY RF: 0 Tresiba FlexTouch U-100 100 unit/mL (3 mL) insulin pen 15 units SUBCUT DAILY RF: 0 aspirin 81 mg Tablet,Delayed Release (Dr/Ec) 81 mg PO DAILY RF: 0 metoprolol succinate 50 mg tablet extended release 24 hr 50 mg PO DAILY 30 Days Qty: 30 RF: 0 insulin aspart U-100 [Novolog Flexpen U-100 Insulin] 100 unit/mL (3 mL) Insulin Pen 5 unit SUBCUT .TIDUD RF: 0 Discharge Orders: Discharge Order (Routine); Ordered 07/04/20 Ordered By: Mo Ndiaye/Other Patient Handouts: Managing Type 2 Diabetes Admission Data Admit Date/Time: 06/26/20 22:32 Attending Provider: Emilie Red Admit Provider: Marc Parson Primary Care Provider: Jhonathan Pennington Other Providers: [facility],Home Healthcare ; Parag Guzman ; Oscar Doll ; Mj Waite ; Claudia Burrell ; David Reyes [facility] Other Interventions: Discharge Summary Assessment (RN) Last Done: 07/04/20 14:04 Supervising Physician Co-Signing Physician Notes Resident Physician Supervision Note: I independently interviewed and examined the patient and verified the lema history and physical, reviewed labs and image studies, discussed the case with the resident Dr. Byrd and agree with the findings and care plan. Resident Activity Tracking Resident Involvement: Resident Care Provided Care Provided: Adult Hospital Medicine
== END 2020-07-04 14:30 | DRG 189 ==
LOC: ED 16:26 → 1E 22:32 → SUATTDRO 22:32 → 1E 22:59 → 3N 06-29 14:14